=== PATIENT | male | born 1945 | race Caucasian/White ===

== ENCOUNTER 2019-08-18 14:55 | Outpatient (RCR) | payer MEDICARE, OTHER, SELFPAY | END 2019-08-31 00:01 | LOC: LAB 14:55 | PROVIDERS: Family Provider Family Medicine; Visit Provider Nurse Practitioner | DX: C90.02 Multiple myeloma in relapse (principal); E11.9 Type 2 diabetes mellitus without complications; E78.5 Hyperlipidemia, unspecified; D63.1 Anemia in chronic kidney disease; D47.2 Monoclonal gammopathy; Z79.899 Other long term (current) drug therapy | CPT/HCPCS: 36415; 80053 ×3; 82728 ×3; 82784 ×9; 83540 ×3; 83550 ×3; 83883 ×6; 84155 ×3; 84165 ×3; 85025 ×3 ==

== ENCOUNTER 2019-09-14 09:25 | Outpatient (RCR) | payer MEDICARE, OTHER, SELFPAY ==
[2019-09-02 15:25] LABS: Basophils % 0.9 %; Eosinophils # 0.1 10^3/uL (0.0-0.8); Eosinophils % 1.5 %; Hematocrit 32.3 % (42.0-52.0); Hemoglobin 10.8 g/dL (11.7-16.6); Lymphocytes # 1.1 10^3/uL (0.8-4.8); Lymphocytes % 33.1 %; Mean Corpuscular HGB Conc 33.4 g/dL (30.0-36.0); Mean Corpuscular Hemoglobin 36.9 pg (28.0-34.0); Mean Corpuscular Volume 110.2 fL (80-94); Mean Platelet Volume 11.1 fL (7.4-10.4); Monocytes # 0.3 10^3/uL (0.2-0.9); Monocytes % 8.2 %; Neutrophils # 1.9 10^3/uL (1.8-7.7); Neutrophils % 56.3 %; Nucleated Red Blood Cells % 0 %; Platelet Count 91 10^3/cmm (130-400); Red Blood Count 2.93 10^6/uL (4.1-5.3); Red Cell Distribution Width 14.3 % (12.1-15.1); White Blood Count 3.3 10^3/uL (4.0-10.0)
[2019-09-02 22:52] LABS: Alanine Aminotransferase 30 U/L (0-41); Alkaline Phosphatase 93 IU/L (40-130); Anion Gap 20.1 (5-19); Aspartate Amino Transferase 20 U/L (0-40); Blood Urea Nitrogen 29 mg/dL (8-23); Calcium 9.2 mg/Dl (8.8-10.2); Carbon Dioxide 28 mmol/L (22-29); Chloride 98 mmol/L (98-107); Globulin 2.2 g/dL (1.3-4.6); Glucose 70 mg/dL (74-106); Immunoglobulin IGA 529 mg/dL (70-400); Immunoglobulin IGG 348 mg/dL (700-1600); Immunoglobulin IGM 28 mg/dL (40-230); Potassium 4.1 mmol/L (3.5-5.1); Sodium 142 mmol/L (136-145); Total Bilirubin 0.5 mg/dL (0.15-1.2); Total Protein 7.2 g/dL (6.6-8.7)
[2019-09-14 13:15] LABS: Immunofixation, Serum NR
[2019-09-14 13:25] LABS: Basophils % 0.9 %; Eosinophils # 0.1 10^3/uL (0.0-0.8); Eosinophils % 1.7 %; Hematocrit 28.8 % (42.0-52.0); Hemoglobin 9.5 g/dL (11.7-16.6); Lymphocytes # 1.4 10^3/uL (0.8-4.8); Mean Corpuscular Hemoglobin 35.2 pg (28.0-34.0); Mean Corpuscular Volume 106.7 fL (80-94); Mean Platelet Volume 10.9 fL (7.4-10.4); Monocytes # 0.3 10^3/uL (0.2-0.9); Monocytes % 9.8 %; Neutrophils # 1.7 10^3/uL (1.8-7.7); Neutrophils % 48.3 %; Nucleated Red Blood Cells % 0 %; Platelet Count 82 10^3/cmm (130-400); Red Cell Distribution Width 14.2 % (12.1-15.1); White Blood Count 3.5 10^3/uL (4.0-10.0)
[2019-09-14 13:33] LABS: Alanine Aminotransferase 23 U/L (0-41); Albumin Level 4.5 g/dL (3.5-5.2); Alkaline Phosphatase 90 IU/L (40-130); Anion Gap 20.1 (5-19); Aspartate Amino Transferase 18 U/L (0-40); Blood Urea Nitrogen 54 mg/dL (8-23); Calcium 9.5 mg/Dl (8.8-10.2); Carbon Dioxide 28 mmol/L (22-29); Chloride 98 mmol/L (98-107); Globulin 1.5 g/dL (1.3-4.6); Glucose 76 mg/dL (74-106); Potassium 5.1 mmol/L (3.5-5.1); Sodium 141 mmol/L (136-145); Total Bilirubin 0.3 mg/dL (0.15-1.2)
[2019-09-14 14:10] LABS: Immunoglobulin IGA 504 mg/dL (70-400); Immunoglobulin IGG 308 mg/dL (700-1600); Immunoglobulin IGM 26 mg/dL (40-230)
[2019-09-16 14:16] LABS: ABNORMAL PROTEIN BAND 1 0.4 g/dL (NONE DETECTED); ALBUMIN 3.9 g/dL (3.8-4.8); ALPHA 1 GLOBULIN 0.2 g/dL (0.2-0.3); ALPHA 2 GLOBULIN 0.6 g/dL (0.5-0.9); BETA 1 GLOBULIN 0.2 g/dL (0.4-0.6); BETA 2 GLOBULIN 0.2 g/dL (0.2-0.5); GAMMA GLOBULIN 0.7 g/dL (0.8-1.7); KAPPA LIGHT CHAIN, FREE, SERUM 44.4 mg/L (3.3-19.4); KAPPA/LAMBDA LIGHT CHAINS FREE 4.58 (0.26-1.65); LAMBDA LIGHT CHAIN, FREE, SERU 9.7 mg/L (5.7-26.3); PROTEIN, TOTAL 5.8 g/dL (6.1-8.1)
== END 2019-10-01 23:59 | disposition home or self-care (01) ==
LOC: LAB 09:25
PROVIDERS: Family Provider Family Medicine; Visit Provider Nurse Practitioner
DX: C90.02 Multiple myeloma in relapse (principal); Z73.1 Type A behavior pattern; D47.2 Monoclonal gammopathy
CPT/HCPCS: 80053; 82784; 83883; 84155; 84165; 85025

== ENCOUNTER 2019-09-16 09:14 | Outpatient (CLI) | payer MEDICARE, OTHER, SELFPAY ==
[2019-09-16] MEDS: acetaminophen 325 mg Tablet 650 MG PO (10:16)
[2019-09-16] MEDS: sodium chloride 0.9% 250 ML 999 ML IV (10:50)
[2019-09-16] MEDS: epoetin alfa 40,000 Unit/mL INJ (non-esrd, onc only) 40000 UNIT SUBCUT (12:33)
--- NOTE | 2019-09-16 19:55 | ONC FU_ITS ---
Dr. Pinto Patient Follow-Up Note Patient: Larry Stephens Unit #: [id number]: 1945 Dicatated By: Dustin Pinto M.D.Date of Visit:Sep 16, 2019 Onc Med Follow-up/Prog Note Chief Complaint: Multiple myeloma. History of Present Illness: This is a 74 year-old man with relapsed IgA kappa myeloma. He has associated end-stage renal disease and anemia. He had pre-existing hypertension, hyperlipidemia, and type II diabetes. He had developed stage III chronic kidney disease following a colonoscopy prep. He had been seeing Dr. Miguelangel Cha for his nephrology follow-up care, and he was then found to have evidence of IgA kappa monoclonal gammopathy in October 2010. He was initially seen here by Dr. Plasencia in September 2011. At that point his protein electrophoresis showed IgA kappa monoclonal protein quantitating at 1.3 g/dL with 0.2 g/dL of free kappa monoclonal protein. UPEP was reportedly unrevealing. Bone marrow aspiration/biopsy showed 12% plasma cells. 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 There was no evidence of lytic bone involvement. His baseline creatinine was 1.8 mg/dL. He was treated initially with 3 cycles of Velcade/dexamethasone between October and December 2011. He required a dose reduction in the Velcade due to neuropathy. His repeat bone marrow aspiration/biopsy at [facility] on 01/01/2012 showed increase in the plasma cells to 17%. He then continued treatment at [facility] with autologous peripheral stem cell transplant in January 2012, I assume with high-dose melphalan, though it is not stated in the available records. The procedure was complicated by sepsis and acute renal failure requiring hemodialysis. He had subsequent relapse of the myeloma. His further treatment included 10 cycles of carfilzomib and dexamethasone beginning in May 2015. It was changed to carfilzomib, Revlimid, and dexamethasone beginning in January 2016 due to disease progression. Following further disease progression, his treatment was transitioned to carfilzomib, pomalidomide, and dexamethasone. As of October 2016, due to progressive kidney disease concerning for progressive myeloma, his treatment was changed to daratumumab, Revlimid, and dexamethasone. The Revlimid and dexamethasone were subsequently omitted due to toxicities, and he has since then continued daratumumab as a single agent. It has been administered on a monthly schedule. During this time his kidney function had progressed to end-stage renal disease, and he is on home peritoneal dialysis. He had been receiving treatment at [facility]. He was seen here in October 2017 because he desired to continue his further treatment locally. His medical illnesses, in addition to myeloma and renal failure, include hypertension, hyperlipidemia, type II diabetes with peripheral neuropathy, and benign prostatic hypertrophy. He is a nonsmoker. INTERIM HISTORY: Following his initial visit he continued monthly daratumumab infusions with no apparent adverse effects and no obvious progression of the myeloma. His hemoglobin/hematocrit levels remained stable above transfusion thresholds. On 06/25/2018 he was seen in the emergency room with increasing weakness. On evaluation, he was found to have a low B12 level at 168 pg/mL, and his TSH level was found to be elevated at 13.500 mIU/mL. He started B12 injections, and he also started thyroid replacement. As of 07/22/2018 there was further decline in the hemoglobin to 8.6 g, and at that point he did start treatment with Procrit. He had a very good response with his hemoglobin increasing to 12.2 g after 2 weekly injections. As of October 2018 he had opted to be admitted to the senior living, and he then began hemodialysis. At that point his erythropoietin stimulating agent was changed to Mircera. He then became progressively more anemic. As of 12/02/2018 his hemoglobin had stabilized at 7.9 g. He then restarted Procrit on 12/17/2018. During this time, he also had continued his monthly daratumumab infusions. His anemia did improve after restarting the Procrit. During follow-up his clinical status had otherwise remained stable. His protein electrophoresis had continued to show a very small M protein spike. There has been no significant change in his serum free light chains. He is seen for a scheduled visit. He has been feeling good generally. He is getting around well at the senior living, and he remains active. ECOG score is 1. He has good appetite. He has no fever or night sweats. He has no shortness of breath, cough, or chest pain. He has no GI or complaints. He currently is not having any significant joint or bone pain. He does have some numbness/tingling in his feet. Medications: Acetaminophen 2 Tablet (of 325 mg) Oral four times a day PRN, Acyclovir 1 Tablet (of 400 mg) Oral daily, Albuterol Sulfate 1 vial(s) (of (2.5 mg/3ml) 0.083%) Nebulization solution Inhalation t.i.d., Albuterol Sulfate 1 Puff(s) (of 108 (90 base) mcg/act) Aerosol Powder, Breath Activated Inhalation daily, Allopurinol 1 Tablet (of 100 mg) Oral daily, ALPRAZolam 1 Tablet (of 0.25 mg) Oral at bedtime, Bisacodyl 1 Suppository (of 10 mg/30mL) Enema Rectal PRN, Bisacodyl EC 1 Tablet (of 5 mg) Tablet, enteric coated Oral daily PRN, Calcium Acetate 1 Capsule (of 667 mg) Oral t.i.d., Diltiazem HCl Coated Beads 1 (240 mg) Capsule SR 24 HR Oral daily, Flomax 1 Tablet (of 0.4 mg) Capsule Oral b.i.d., Furosemide 1 Tablet (of 80 mg) Oral daily, Gentamicin Sulfate 1 (0.1 %) Cream Topical at bedtime, Levothyroxine Sodium 1 Tablet (of 50 mcg) Oral daily, Loperamide HCl 1 - 2 Tablet (of 2 mg) Oral PRN, Lovastatin 1 (40 mg) Tablet Oral at bedtime, Melatonin 1 Tablet (of 3 mg) Oral at bedtime, Mucinex 1 Tablet (of 600 mg) Tablet SR 12 HR Oral b.i.d., NovoLOG FlexPen Subcutaneous t.i.d., Prochlorperazine Maleate 1 Tablet (of 10 mg) Oral q 6 hours PRN, Requip 1 Tablet (of 0.5 mg) Oral b.i.d., Vitamin D3 1 Capsule (of 1000 Units) Oral daily Allergies: Bactrim, Codeine Sulfate, Sulfa Antibiotics, TraMADol HCl, and Verapamil HCl. Review of Systems: Constitutional - He feels pretty good. He remains acitive at the senior living. Appetite is good and weight is stable. No fever, chills, hot flashes, or night sweats. ECOG score is 1, ENMT - No sinus congestion/drainage. No mouth sores. No sore throat or difficulty swallowing, Hematologic/Lymphatic - He bruises easily, Respiratory - No shortness of breath. No cough. No pleuritic pain or hemoptysis, Cardiovascular - No angina pain. No palpitations, Gastrointestinal - No nausea or vomiting. No heartburn or acid reflux. No diarrhea or constipation. No blood in the stool or black stools, Genitourinary (M) - No dysuria or hematuria. No urinary frequency. No urgency or incontinence, Musculoskeletal - No joint or bone pain, Integumentary - No skin complications, Neurologic - No headache or dizziness. He has numbness/tingling in his feet, Psychiatric - No anxiety or depression. No insomnia. Vital Signs: Performed on Sep 16, 2019 09:25 Height - 69.00 in Weight - 147.4 lbs (HIGH) BSA - 1.81 sq.m BMI - 21.77 Temperature - 97.1 F (LOW) Pulse - 63 /min Respiration - 20 /min BP - 127/59 mm(hg) O2 Sat - 100 % Pain - 0 Physical Examination: Constitutional - He looks pretty good generally, Eyes - Sclerae nonicteric. Conjunctivae clear, ENMT - There are no lesions noted in the oral cavity, Hematologic/Lymphatic - No cervical, clavicular, or axillary adenopathy, Respiratory - Lungs sound clear, Cardiovascular - Heart rhythm is regular. There is no murmur, gallop, or rub noted, Abdomen - Soft. Liver and spleen are not enlarged. There is no abdominal mass or ascites noted and there is no inguinal adenopathy, Extremities - No edema. There is chronic purpura on both arms, Neurologic - No focal neurologic deficits noted. Lab/Imaging: Test performed on Sep 14, 2019 09:25 Glucose 76 mg/dL BUN 54 mg/dL Creatinine 5.6 mg/dL Cr Clearance (Est) 10.64 mL/min Sodium 141 mmol/L Potassium 5.1 mmol/L Chloride 98 mmol/L CO2 28 mmol/L Calcium 9.5 mg/dL Protein, Total 6.0 g/dL Albumin 4.5 g/dL Bilirubin, Total 0.3 mg/dL Alkaline Phosphatase 90 IU/L AST (SGOT) 18 IU/L ALT (SGPT) 23 IU/L WBC 3.5 10^9/L RBC 2.70 10^12/L HGB 9.5 g/dL HCT 28.8 % MCV 106.7 fl MCH 35.2 pg MCHC 33.0 g/dL RDW 14.2 % Platelet Count 82 10^9/L MPV 10.9 fL Neutrophils (Gran) 1.7 10^9/L Lymphocytes 1.4 10^9/L Monocytes 0.3 10^9/L Eosinophils 0.1 10^9/L Basophils 0.0 10^9/L Manual Lymphocytes 39.0 % Manual Monocytes 9.8 % Manual Eosinophils 1.7 % Manual Basophils 0.9 % NRBCs 0.0 /100 WBC IGA 504 mg/dL IGG 308 mg/dL IGM 26 mg/dL Impression: 1. Patient with IgA kappa myeloma, initially diagnosed in September 2011. He has associated end-stage renal disease and anemia. 2. He had disease progression following initial treatment with 3 cycles of Velcade/dexamethasone completed in December 2011. 3. He underwent autologous peripheral stem cell transplant at [facility] in January 2012, complicated by sepsis and acute renal failure requiring hemodialysis. 4. Following disease recurrence he had further treatment with 10 cycles of carfilzomib and dexamethasone beginning in May 2015. 5. Following disease progression he had further treatment with carfilzomib, Revlimid, and dexamethasone beginning in January 2016, and subsequently with carfilzomib, pomalidomide, and dexamethasone. 6. He then had further decline in kidney function with progression to end-stage renal disease, concerning for progressive myeloma. He began treatment with daratumumab, Revlimid, and dexamethasone beginning in October 2016. His treatment was later transitioned to single agent daratumumab due to toxicities with Revlimid and dexamethasone. He is now receiving daratumumab infusions on a monthly schedule. 7. He has been on daily home peritoneal dialysis for the end-stage renal disease, but he is now going to be starting hemodialysis. 8. 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 In April 2018 he had started treatment with Procrit, and thus far he has had a good clinical response. 9. He has associated hypogammaglobulinemia, but he has not been symptomatic with it. His other medical illnesses include: 10. Hypertension. 11. Hyperlipidemia. 12. Type II diabetes with peripheral neuropathy. 13. Benign prostatic hypertrophy. In June 2018 he was found to have a low B12 level, and he did start B12 replacement. He also was found to have a mildly elevated TSH level, and he also started thyroid replacement. His repeat B12 level in August was actually high, and the B12 injections were subsequently stopped. As of October 2018 he opted to be admitted to the senior living, and he then started hemodialysis. At that point his erythropoietin stimulating agent was changed to Mircera. During subsequent follow-up there was further decline in his hemoglobin, eventually stabilizing at 7.9 g. As of November 2018 he restarted Procrit, and he had a very good clinical response. Since then he has continued monthly daratumumab infusions, and he has continued Procrit injections as needed with this target hemoglobin at 10 g. His protein electrophoresis studies have been showing a small M protein spike. It is uncertain what extent that may just be reflecting his daratumumab. There has been no significant change in his free light chain assays. His overall clinical status remained stable. Plan: He will be given daratumumab 1,200 mg by IV infusion. He will continue Procrit as needed with his target hemoglobin at 10 g. He will be scheduled for a follow-up visit in one month. Signed By: Dustin Pinto M.D. <<Signature on File>>
== END 2019-09-16 09:15 | disposition home or self-care (01) ==
LOC: ONCMED 09:14
PROVIDERS: Family Provider Family Medicine; PCP Family Medicine; Visit Provider Internal Medicine Medical Oncology
DX: Z51.12 Encounter for antineoplastic immunotherapy (principal); C90.02 Multiple myeloma in relapse; D80.1 Nonfamilial hypogammaglobulinemia; E11.22 Type 2 diabetes mellitus with diabetic chronic kidney disease; I12.0 Hypertensive chronic kidney disease with stage 5 chronic kidney disease or end stage renal disease; N18.6 End stage renal disease; D63.1 Anemia in chronic kidney disease; E78.5 Hyperlipidemia, unspecified; E11.42 Type 2 diabetes mellitus with diabetic polyneuropathy; N40.0 Benign prostatic hyperplasia without lower urinary tract symptoms; Z99.2 Dependence on renal dialysis; Z79.4 Long term (current) use of insulin; Z94.84 Stem cells transplant status
CPT/HCPCS: 96365; 96367; 96372; 96413; 96415; 99214; J0885; J1200; J2405; J7040; J7050; J9145; Q4081

== ENCOUNTER 2019-10-14 08:29 | Outpatient (CLI) | payer MEDICARE, OTHER, SELFPAY ==
[2019-10-14] MEDS: acetaminophen 325 mg Tablet 650 MG PO (09:48)
[2019-10-14] MEDS: epoetin alfa 40,000 Unit/mL INJ (non-esrd, onc only) 40000 UNIT SUBCUT (09:53)
[2019-10-14] MEDS: sodium chloride 0.9% 250 ML 999 ML IV (09:53)
--- NOTE | 2019-10-14 09:58 | ONC FU_ITS ---
[facility] Patient Note Patient: Larry Stephens Unit #: [id number]: 1945 Dictated By: Ann SheetsDate of Visit: Oct 14, 2019 Onc MED Follow-Up/Prog Note Chief Complaint: Multiple myeloma. History of Present Illness: Mr Stephens is a 74 year-old man with relapsed IgA kappa myeloma. He has associated end-stage renal disease and anemia. He had pre-existing hypertension, hyperlipidemia, and type II diabetes. He had developed stage III chronic kidney disease following a colonoscopy prep. He had been seeing Dr. Miguelangel Cha for his nephrology follow-up care, and he was then found to have evidence of IgA kappa monoclonal gammopathy in October 2010. He was initially seen here by Dr. Plasencia in September 2011. At that point his protein electrophoresis showed IgA kappa monoclonal protein quantitating at 1.3 g/dL with 0.2 g/dL of free kappa monoclonal protein. UPEP was reportedly unrevealing. Bone marrow aspiration/biopsy showed 12% plasma cells. 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 There was no evidence of lytic bone involvement. His baseline creatinine was 1.8 mg/dL. He was treated initially with 3 cycles of Velcade/dexamethasone between October and December 2011. He required a dose reduction in the Velcade due to neuropathy. His repeat bone marrow aspiration/biopsy at [facility] on 01/01/2012 showed increase in the plasma cells to 17%. He then continued treatment at [facility] with autologous peripheral stem cell transplant in January 2012, assumed to be with high-dose melphalan, though it is not stated in the available records. The procedure was complicated by sepsis and acute renal failure requiring hemodialysis. He had subsequent relapse of the myeloma. His further treatment included 10 cycles of carfilzomib and dexamethasone beginning in May 2015. It was changed to carfilzomib, Revlimid, and dexamethasone beginning in January 2016 due to disease progression. Following further disease progression, his treatment was transitioned to carfilzomib, pomalidomide, and dexamethasone. As of October 2016, due to progressive kidney disease concerning for progressive myeloma, his treatment was changed to daratumumab, Revlimid, and dexamethasone. The Revlimid and dexamethasone were subsequently omitted due to toxicities, and he has since then continued daratumumab as a single agent. It has been administered on a monthly schedule. During this time his kidney function had progressed to end-stage renal disease, and he is on home peritoneal dialysis. He had been receiving treatment at [facility]. He was seen here in October 2017 because he desired to continue his further treatment locally. His medical illnesses, in addition to myeloma and renal failure, include hypertension, hyperlipidemia, type II diabetes with peripheral neuropathy, and benign prostatic hypertrophy. He is a nonsmoker. INTERIM HISTORY: Following his initial visit he continued monthly daratumumab infusions with no apparent adverse effects and no obvious progression of the myeloma. His hemoglobin/hematocrit levels remained stable above transfusion thresholds. On 06/25/2018 he was seen in the emergency room with increasing weakness. On evaluation, he was found to have a low B12 level at 168 pg/mL, and his TSH level was found to be elevated at 13.500 mIU/mL. He started B12 injections, and he also started thyroid replacement. As of 07/22/2018 there was further decline in the hemoglobin to 8.6 g, and at that point he did start treatment with Procrit. He had a very good response with his hemoglobin increasing to 12.2 g after 2 weekly injections. As of October 2018 he had opted to be admitted to the correction, and he then began hemodialysis. At that point his erythropoietin stimulating agent was changed to Mircera. He then became progressively more anemic. As of 12/02/2018 his hemoglobin had stabilized at 7.9 g. He then restarted Procrit on 12/17/2018. During this time, he also had continued his monthly daratumumab infusions. His anemia did improve after restarting the Procrit. During follow-up his clinical status had otherwise remained stable. His protein electrophoresis had continued to show a very small M protein spike. There has been no significant change in his serum free light chains. Mr. Stephens is here today for follow-up. He states overall he is doing well. He continues to tolerate hemodialysis 3 times weekly extremely well. He denies any new concerns. He said no fever or chills. He states he has not had any flu symptoms or evidence of any kind of infections. He states he wears a mask while he is at dialysis to. He denies pain. He denies any nausea or vomiting. He states he is eating well. He is been very active. He continues to live in assisted living and tolerates this well. He states he is very active there and is still working on his house trying to prepare it to sell later this year. He is still driving and tolerating this well. He denies any bowel or bladder changes. His states his neuropathy is stable and certainly is no worse than his last few visits. He continues to tolerate the Procrit well. He states his energy is good for him. He has had slight bleeding from his dialysis fistula but states they are putting a blood clotting Band-Aid and pressure dressing on top and I hold it for 15 minutes and thus far had no further problems . His ECOG is 1. Past Medical History: Benign prostatic hypertrophy End stage renal disease on home peritoneal dialysis Hyperlipidemia Hypertension Multiple myeloma Type II diabetes with peripheral neuropathy Past Surgical History: Placement of peritoneal diaysis catheter Placement of portacath venous access device Fistula in left arm in 2019 Prevnar 13 in 2018 Cataract excision in 2016 Right inguinal hernia repair in 2007 Cholecystectomy in 1983 Allergies: Bactrim, Codeine Sulfate, Sulfa Antibiotics, TraMADol HCl, and Verapamil HCl. Medications: Acetaminophen 2 Tablet (of 325 mg) Oral four times a day PRN Acyclovir 1 Tablet (of 400 mg) Oral daily Albuterol Sulfate 1 vial(s) (of (2.5 mg/3ml) 0.083%) Nebulization solution Inhalation t.i.d. Albuterol Sulfate 1 Puff(s) (of 108 (90 base) mcg/act) Aerosol Powder, Breath Activated Inhalation daily Allopurinol 1 Tablet (of 100 mg) Oral daily ALPRAZolam 1 Tablet (of 0.25 mg) Oral at bedtime Bisacodyl 1 Suppository (of 10 mg/30mL) Enema Rectal PRN Bisacodyl EC 1 Tablet (of 5 mg) Tablet, enteric coated Oral daily PRN Calcium Acetate 1 Capsule (of 667 mg) Oral t.i.d. Diltiazem HCl Coated Beads 1 (240 mg) Capsule SR 24 HR Oral daily Flomax 1 Tablet (of 0.4 mg) Capsule Oral b.i.d. Furosemide 1 Tablet (of 80 mg) Oral daily Gentamicin Sulfate 1 (0.1 %) Cream Topical at bedtime Levothyroxine Sodium 1 Tablet (of 50 mcg) Oral daily Loperamide HCl 1 - 2 Tablet (of 2 mg) Oral PRN Lovastatin 1 (40 mg) Tablet Oral at bedtime Melatonin 1 Tablet (of 3 mg) Oral at bedtime Mucinex 1 Tablet (of 600 mg) Tablet SR 12 HR Oral b.i.d. NovoLOG FlexPen Subcutaneous t.i.d. Prochlorperazine Maleate 1 Tablet (of 10 mg) Oral q 6 hours PRN Requip 1 Tablet (of 0.5 mg) Oral b.i.d. Vitamin D3 1 Capsule (of 1000 Units) Oral daily Family History: Mr. Augusts mother at age 82: Breast Cancer at age 70. Mr. Stephens's father at age 40. Mr. Stephens's maternal grandmother at age 80: cancer history consists of Breast cancer at age 80 (cause of ). Father at age 40, cause unknown to the patient. Mother of breast cancer at age 82. His maternal grandmother also had breast cancer. Social History: Mr. Stephens is and he is retired. Mr. Stephens has never smoked. He has no history of drinking. He is a nonsmoker. He does not drink alcohol. Review Of Symptoms: Constitutional Denies fevers, chills, night sweats, excessive fatigue or weight loss. Allergic/Immunologic No reactions. Eyes Denies significant visual changes. No diplopia. No amaurosis. ENMT Denies changes in hearing, sore throat, mouth sores, difficulty or changes in swallowing ability, and/or sinus drainage. Endocrine No diabetes, thyroid disease or hormone replacement. Denies hot flashes or night sweats. Hematologic/Lymphatic Denies easy bruising or bleeding. The patient denies any tender or palpable lymph nodes. Respiratory Denies dyspnea on exertion, chest pain, cough or hemoptysis. Denies orthopnea. Cardiovascular Denies anginal chest pain, palpitations or orthopnea. Gastrointestinal Denies nausea, vomiting, GI bleeding, or constipation. Denies change in bowel habits and/or stool color, no heartburn or early satiety. Genitourinary (M) Denies hematuria, dysuria, increased frequency, urgency, hesitancy or incontinence. Musculoskeletal Denies joint pain, swelling or redness. No decreased range of motion. Integumentary Denies chronic rashes, inflammation, ulcerations or skin changes. Neurologic Denies headache, blurred vision, and no areas of focal weakness or numbness. Normal gait. No sensory problems. Psychiatric Denies insomnia, depression, brielle or mood swings. Vital Signs: Performed on Oct 14, 2019 08:56 Height - 69.00 in Weight - 148.2 lbs (HIGH) BSA - 1.82 sq.m BMI - 21.89 Temperature - 97.5 F (LOW) Pulse - 66 /min Respiration - 14 /min BP - 129/59 mm(hg) O2 Sat - 99 % Pain - 0 Fatigue - 2,1 - No physically strenuous activity, but ambulatory and able to carry out light or sedentary work (e.g. office work, light house work). (ECOG) Physical Examination: Constitutional Alert, oriented, no acute distress. Skin pink, warm and dry. Head Normocephalic; atraumatic. Eyes Conjunctivae and sclerae are clear and without icterus. Pupils are reactive and equal. ENMT No oral exudates, ulcers, masses, thrush or mucositis. Oropharynx clear. Tongue normal. Neck Supple without masses or thyromegaly. No jugular venous distension. Hematologic/Lymphatic No petechiae or purpura. No tender or palpable lymph nodes in the cervical or supraclavicular areas. Respiratory Lungs are clear to auscultation without rhonchi or wheezing. Cardiovascular Regular rate and rhythm of heart without murmurs,clicks, gallops or rubs. Abdomen Non-tender, non-distended, no masses, Back/Spine Non-tender to palpation. Extremities No visible deformities, no cyanosis, clubbing or edema. Left arm fistula is unremarkable-no active bleeding and no significant bruising. Musculoskeletal No tenderness or swelling, normal range of motion without obvious weakness. Integumentary No rashes or lesions. Neurologic No sensory or motor deficits, normal cerebellar function, normal gait. Psychiatric Alert and oriented times three. Coherent speech. Verbalizes understanding of our discussions today. Laboratory:Test performed on Oct 07, 2019 08:10 Glucose 84 mg/dL Protein, Total 6.0 g/dL Albumin, SPE 4.0 g/dL BUN 47 mg/dL Creatinine 5.1 mg/dL Cr Clearance (Est) 11.68 mL/min Sodium 139 mmol/L Potassium 4.8 mmol/L Chloride 98 mmol/L CO2 28 mmol/L Calcium 9.4 mg/dL Albumin 4.2 g/dL Globulin 2.2 g/dL Bilirubin, Total 0.4 mg/dL Alkaline Phosphatase 86 IU/L AST (SGOT) 17 IU/L ALT (SGPT) 23 IU/L WBC 4.4 10^9/L RBC 2.69 10^12/L HGB 9.5 g/dL HCT 28.3 % MCV 105.2 fl MCH 35.3 pg MCHC 33.6 g/dL RDW 14.5 % Platelet Count 86 10^9/L MPV 11.0 fL Neutrophils (Gran) 2.8 10^9/L Lymphocytes 1.1 10^9/L Monocytes 0.4 10^9/L Eosinophils 0.1 10^9/L Basophils 0.0 10^9/L Manual Lymphocytes 25.5 % Manual Monocytes 8.3 % Manual Eosinophils 1.6 % Manual Basophils 0.5 % [place] / Lambda Ratio 5.33 Absolute Value Lambda Light Chain 8.0 [place] Light Chain 42.6 [id number] 0.3 g/dL Qainy-0-oeklvaem 0.6 g/dL Gamma Globulin 0.8 g/dL SPE Interpretation Final restricted band (M-spike) migrating in the gamma region Test performed on Sep 14, 2019 09:25 NRBCs 0.0 /100 WBC IGA 504 mg/dL IGG 308 mg/dL IGM 26 mg/dL Test performed on Aug 04, 2019 12:40 Ferritin 941.0 ng/ml Iron 133 ug/dL % Iron Saturation 83.6 % UIBC 26 ug/dL Anion Gap 15.7 Neutrophil % 51.6 % Lymphocyte % 35.2 % Monocyte % 10.0 % Eosinophil % 1.8 % Basophils % 0.9 % Test performed on Jul 08, 2019 10:09 BUN/Creatinine Ratio 11.1 Absolute Value A/G Ratio 2.4 Absolute Value Manual Segs 56.4 % Test performed on Jul 07, 2019 10:17 TIBC 194 mcg/dL Test performed on May 20, 2019 12:10 Folate, Serum 18.7 ng/mL Test performed on May 20, 2019 08:53 TSH 1.42 uIU/mL Test performed on May 05, 2019 00:00 Magnesium 2.1 mg/dL Hemoglobin A1C 4.4 % Impression: 1. Patient with IgA kappa myeloma, initially diagnosed in September 2011. He has associated end-stage renal disease and anemia. 2. He had disease progression following initial treatment with 3 cycles of Velcade/dexamethasone completed in December 2011. 3. He underwent autologous peripheral stem cell transplant at [facility] in January 2012, complicated by sepsis and acute renal failure requiring hemodialysis. 4. Following disease recurrence he had further treatment with 10 cycles of carfilzomib and dexamethasone beginning in May 2015. 5. Following disease progression he had further treatment with carfilzomib, Revlimid, and dexamethasone beginning in January 2016, and subsequently with carfilzomib, pomalidomide, and dexamethasone. 6. He then had further decline in kidney function with progression to end-stage renal disease, concerning for progressive myeloma. He began treatment with daratumumab, Revlimid, and dexamethasone beginning in October 2016. His treatment was later transitioned to single agent daratumumab due to toxicities with Revlimid and dexamethasone. He is now receiving daratumumab infusions on a monthly schedule. 7. He has been on daily home peritoneal dialysis for the end-stage renal disease, but he is now going to be starting hemodialysis. 8. 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 In April 2018 he had started treatment with Procrit, and thus far he has had a good clinical response. 9. He has associated hypogammaglobulinemia, but he has not been symptomatic with it. His other medical illnesses include: 10. Hypertension. 11. Hyperlipidemia. 12. Type II diabetes with peripheral neuropathy. 13. Benign prostatic hypertrophy. In June 2018 he was found to have a low B12 level, and he did start B12 replacement. He also was found to have a mildly elevated TSH level, and he also started thyroid replacement. His repeat B12 level in August was actually high, and the B12 injections were subsequently stopped. As of October 2018 he opted to be admitted to the correction, and he then started hemodialysis. At that point his erythropoietin stimulating agent was changed to Mircera. During subsequent follow-up there was further decline in his hemoglobin, eventually stabilizing at 7.9 g. As of November 2018 he restarted Procrit, and he had a very good clinical response. Since then he has continued monthly daratumumab infusions, and he has continued Procrit injections as needed with this target hemoglobin at 10 g. His protein electrophoresis studies have been showing a small M protein spike. It is uncertain what extent that may just be reflecting his daratumumab. There has been no significant change in his free light chain assays. His overall clinical status remained stable. Plan: 1. Proceed with cycle 36 daratuzumab. 2. Continue Procrit 40,000 units today as his Hgb is 9.5. 3. Continue in-home labs at [facility]. Recheck CBC in 2 weeks (anemia assessment-for possible Procrit). 4. Labs from 10/07/2019 were reviewed in detail and discussed with Mr. Stephens and a copy was given to him. His hemoglobin was 9.5. His platelet count was 86,000 and WBCs were 4.4 and ANC was 2800. His LFTs were normal. His Quantative [place] Free Light Chain was 42.3 on 10/07/2019 co mpared to 37.3 on 08/12/19 and 64.7 on 07/08/2019. The M-spike on was 0.4 compared to 08/12/19 was 0.4 and 0.2 on 07/08/2019. 5. Plan for followup in 4 weeks as scheduled followup labs to include CBC, CMP and multiple myeloma labs. He will be due for cycle 37 Darzalex at that time. 6. Mr. Stephens was instructed to contact us in the interim should questions or problems arise. If he shows disease progression or intolerance to the daratuzumab, the next possible option for treatment may be selinexor. Signed By: Ann Sheets-, AOCNP Dustin Pinto MD <<Signature on File>>
== END 2019-10-14 08:30 | disposition home or self-care (01) ==
LOC: ONCMED 08:36
PROVIDERS: Family Provider Family Medicine; PCP Family Medicine; Visit Provider Nurse Practitioner
DX: Z51.12 Encounter for antineoplastic immunotherapy (principal); C90.02 Multiple myeloma in relapse; E11.22 Type 2 diabetes mellitus with diabetic chronic kidney disease; I12.9 Hypertensive chronic kidney disease with stage 1 through stage 4 chronic kidney disease, or unspecified chronic kidney disease; N18.3 Chronic kidney disease, stage 3 (moderate); D63.1 Anemia in chronic kidney disease; E78.5 Hyperlipidemia, unspecified; E11.42 Type 2 diabetes mellitus with diabetic polyneuropathy; N40.0 Benign prostatic hyperplasia without lower urinary tract symptoms; Z99.2 Dependence on renal dialysis; Z94.84 Stem cells transplant status; Z79.4 Long term (current) use of insulin
CPT/HCPCS: 96367; 96372; 96413; 96415; 99214; J0885; J1200; J2405; J7040; J7050; J9145; Q4081

== ENCOUNTER 2019-10-28 08:20 | Outpatient (RCR) | payer MEDICARE, OTHER, SELFPAY ==
[2019-10-07 10:49] LABS: Basophils % 0.5 %; Eosinophils # 0.1 10^3/uL (0.0-0.8); Eosinophils % 1.6 %; Hematocrit 28.3 % (42.0-52.0); Hemoglobin 9.5 g/dL (11.7-16.6); Lymphocytes # 1.1 10^3/uL (0.8-4.8); Lymphocytes % 25.5 %; Mean Corpuscular HGB Conc 33.6 g/dL (30.0-36.0); Mean Corpuscular Hemoglobin 35.3 pg (28.0-34.0); Mean Corpuscular Volume 105.2 fL (80-94); Monocytes # 0.4 10^3/uL (0.2-0.9); Monocytes % 8.3 %; Neutrophils # 2.8 10^3/uL (1.8-7.7); Neutrophils % 63.9 %; Nucleated Red Blood Cells % 0 %; Platelet Count 86 10^3/cmm (130-400); Red Blood Count 2.69 10^6/uL (4.1-5.3); Red Cell Distribution Width 14.5 % (12.1-15.1); White Blood Count 4.4 10^3/uL (4.0-10.0)
[2019-10-07 11:02] LABS: Alanine Aminotransferase 23 U/L (0-41); Albumin Level 4.2 g/dL (3.5-5.2); Alkaline Phosphatase 86 IU/L (40-130); Anion Gap 17.8 (5-19); Aspartate Amino Transferase 17 U/L (0-40); Blood Urea Nitrogen 47 mg/dL (8-23); Calcium 9.4 mg/dL (8.5-10.5); Carbon Dioxide 28 mmol/L (22-29); Chloride 98 mmol/L (98-107); Globulin 2.2 g/dL (1.3-4.6); Glucose 84 mg/dL (65-115); Potassium 4.8 mmol/L (3.5-5.1); Sodium 139 mmol/L (136-145); Total Bilirubin 0.4 mg/dL (0.15-1.2); Total Protein 6.4 g/dL (6.6-8.7)
[2019-10-08 12:31] LABS: ABNORMAL PROTEIN BAND 1 0.4 g/dL (NONE DETECTED); ALPHA 1 GLOBULIN 0.3 g/dL (0.2-0.3); ALPHA 2 GLOBULIN 0.6 g/dL (0.5-0.9); BETA 1 GLOBULIN 0.3 g/dL (0.4-0.6); BETA 2 GLOBULIN 0.2 g/dL (0.2-0.5); GAMMA GLOBULIN 0.8 g/dL (0.8-1.7)
[2019-10-08 14:22] LABS: KAPPA LIGHT CHAIN, FREE, SERUM 42.6 mg/L (3.3-19.4); KAPPA/LAMBDA LIGHT CHAINS FREE 5.33 (0.26-1.65)
[2019-10-28 11:42] LABS: Basophils % 0.9 %; Eosinophils # 0.2 10^3/uL (0.0-0.8); Eosinophils % 3.5 %; Hematocrit 30.8 % (42.0-52.0); Hemoglobin 10.1 g/dL (11.7-16.6); Lymphocytes % 24.2 %; Mean Corpuscular HGB Conc 32.8 g/dL (30.0-36.0); Mean Corpuscular Hemoglobin 35.8 pg (28.0-34.0); Mean Corpuscular Volume 109.2 fL (80-94); Mean Platelet Volume 10.6 fL (7.4-10.4); Monocytes # 0.4 10^3/uL (0.2-0.9); Monocytes % 8.2 %; Neutrophils # 2.7 10^3/uL (1.8-7.7); Nucleated Red Blood Cells % 0 %; Platelet Count 109 10^3/cmm (130-400); Red Blood Count 2.82 10^6/uL (4.1-5.3); Red Cell Distribution Width 15.9 % (12.1-15.1); White Blood Count 4.3 10^3/uL (4.0-10.0)
[2019-10-28 13:07] LABS: Alanine Aminotransferase 16 U/L (0-41); Alkaline Phosphatase 87 IU/L (40-130); Aspartate Amino Transferase 15 U/L (0-40); Blood Urea Nitrogen 42 mg/dL (8-23); Calcium 9.5 mg/dL (8.5-10.5); Carbon Dioxide 30 mmol/L (22-29); Chloride 99 mmol/L (98-107); Globulin 2.9 g/dL (1.3-4.6); Glucose 88 mg/dL (65-115); Sodium 142 mmol/L (136-145); Total Bilirubin 0.6 mg/dL (0.15-1.2); Total Protein 6.9 g/dL (6.6-8.7); Vitamin B12 1513 pg/mL (232-1245)
[2019-10-28 13:35] LABS: Immunoglobulin IGA 769 mg/dL (70-400)
[2019-10-28 13:51] LABS: Immunoglobulin IGG < 300 mg/dL (700-1600); Immunoglobulin IGM < 25 mg/dL (40-230)
[2019-10-29 07:34] LABS: PROTEIN, TOTAL 6.3 g/dL (6.1-8.1)
[2019-10-29 12:02] LABS: ABNORMAL PROTEIN BAND 1 0.6 g/dL (NONE DETECTED); ALPHA 1 GLOBULIN 0.3 g/dL (0.2-0.3); ALPHA 2 GLOBULIN 0.6 g/dL (0.5-0.9); BETA 1 GLOBULIN 0.2 g/dL (0.4-0.6); BETA 2 GLOBULIN 0.2 g/dL (0.2-0.5)
[2019-10-29 16:56] LABS: KAPPA LIGHT CHAIN, FREE, SERUM 49.7 mg/L (3.3-19.4); KAPPA/LAMBDA LIGHT CHAINS FREE 5.85 (0.26-1.65); LAMBDA LIGHT CHAIN, FREE, SERU 8.5 mg/L (5.7-26.3)
== END 2019-10-30 23:59 | disposition home or self-care (01) ==
LOC: LAB 08:20
PROVIDERS: Internal Medicine Medical Oncology; Family Provider Family Medicine; PCP Family Medicine; Visit Provider Nurse Practitioner
DX: C90.02 Multiple myeloma in relapse (principal); D47.2 Monoclonal gammopathy; Z79.899 Other long term (current) drug therapy
CPT/HCPCS: 80053; 82607; 82784; 83883; 84155; 84165; 85025

== ENCOUNTER 2019-11-11 08:30 | Outpatient (CLI) | payer MEDICARE, OTHER, SELFPAY ==
[2019-11-04 11:43] LABS: Basophils % 0.8 %; Eosinophils # 0.2 10^3/uL (0.0-0.8); Eosinophils % 4.1 %; Hematocrit 28.8 % (42.0-52.0); Hemoglobin 9.4 g/dL (11.7-16.6); Mean Corpuscular HGB Conc 32.6 g/dL (30.0-36.0); Mean Corpuscular Hemoglobin 34.3 pg (28.0-34.0); Mean Corpuscular Volume 105.1 fL (80-94); Mean Platelet Volume 10.3 fL (7.4-10.4); Monocytes # 0.4 10^3/uL (0.2-0.9); Neutrophils # 2.3 10^3/uL (1.8-7.7); Neutrophils % 59.8 %; Nucleated Red Blood Cells % 0 %; Platelet Count 93 10^3/cmm (130-400); Red Blood Count 2.74 10^6/uL (4.1-5.3); Red Cell Distribution Width 15.5 % (12.1-15.1); White Blood Count 3.9 10^3/uL (4.0-10.0)
[2019-11-04 12:17] LABS: Alanine Aminotransferase 20 U/L (0-41); Albumin Level 3.9 g/dL (3.5-5.2); Alkaline Phosphatase 90 IU/L (40-130); Anion Gap 16.7 (5-19); Aspartate Amino Transferase 19 U/L (0-40); Blood Urea Nitrogen 42 mg/dL (8-23); Calcium 9.2 mg/dL (8.5-10.5); Carbon Dioxide 31 mmol/L (22-29); Chloride 98 mmol/L (98-107); Globulin 2.8 g/dL (1.3-4.6); Glucose 74 mg/dL (65-115); Potassium 4.7 mmol/L (3.5-5.1); Sodium 141 mmol/L (136-145); Total Bilirubin 0.4 mg/dL (0.15-1.2); Total Protein 6.7 g/dL (6.6-8.7)
[2019-11-04 12:33] LABS: Vitamin B12 1722 pg/mL (232-1245)
[2019-11-04 12:50] LABS: Immunoglobulin IGA 890 mg/dL (70-400)
[2019-11-04 12:51] LABS: Immunoglobulin IGG 264 mg/dL (700-1600); Immunoglobulin IGM 21 mg/dL (40-230)
[2019-11-05 11:32] LABS: ABNORMAL PROTEIN BAND 1 0.6 g/dL (NONE DETECTED); ALBUMIN 3.7 g/dL (3.8-4.8); ALPHA 1 GLOBULIN 0.3 g/dL (0.2-0.3); ALPHA 2 GLOBULIN 0.6 g/dL (0.5-0.9); BETA 1 GLOBULIN 0.2 g/dL (0.4-0.6); BETA 2 GLOBULIN 0.2 g/dL (0.2-0.5)
[2019-11-05 19:10] LABS: KAPPA LIGHT CHAIN, FREE, SERUM 52.1 mg/L (3.3-19.4); KAPPA/LAMBDA LIGHT CHAINS FREE 8.83 (0.26-1.65); LAMBDA LIGHT CHAIN, FREE, SERU 5.9 mg/L (5.7-26.3)
[2019-11-11] MEDS: acetaminophen 325 mg Tablet 650 MG PO (09:50)
[2019-11-11] MEDS: sodium chloride 0.9% 250 ML 999 ML IV (09:55)
[2019-11-11] MEDS: epoetin alfa 40,000 Unit/mL INJ (non-esrd, onc only) 40000 UNIT SUBCUT (12:22)
--- NOTE | 2019-11-14 13:10 | ONC FU_ITS ---
Dr. Pinto Patient Follow-Up Note Patient: Larry Stephens Unit #: [id number]: 1945 Dicatated By: Dustin Pinto M.D.Date of Visit:Nov 11, 2019 Onc Med Follow-up/Prog Note Chief Complaint: Multiple myeloma. History of Present Illness: This is a 74 year-old man with relapsed IgA kappa myeloma. He has associated end-stage renal disease and anemia. He had pre-existing hypertension, hyperlipidemia, and type II diabetes. He had developed stage III chronic kidney disease following a colonoscopy prep. He had been seeing Dr. Miguelangel Cha for his nephrology follow-up care, and he was then found to have evidence of IgA kappa monoclonal gammopathy in October 2010. He was initially seen here by Dr. Plasencia in September 2011. At that point his protein electrophoresis showed IgA kappa monoclonal protein quantitating at 1.3 g/dL with 0.2 g/dL of free kappa monoclonal protein. UPEP was reportedly unrevealing. Bone marrow aspiration/biopsy showed 12% plasma cells. 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 There was no evidence of lytic bone involvement. His baseline creatinine was 1.8 mg/dL. He was treated initially with 3 cycles of Velcade/dexamethasone between October and December 2011. He required a dose reduction in the Velcade due to neuropathy. His repeat bone marrow aspiration/biopsy at [facility] on 01/01/2012 showed increase in the plasma cells to 17%. He then continued treatment at [facility] with autologous peripheral stem cell transplant in January 2012, I assume with high-dose melphalan, though it is not stated in the available records. The procedure was complicated by sepsis and acute renal failure requiring hemodialysis. He had subsequent relapse of the myeloma. His further treatment included 10 cycles of carfilzomib and dexamethasone beginning in May 2015. It was changed to carfilzomib, Revlimid, and dexamethasone beginning in January 2016 due to disease progression. Following further disease progression, his treatment was transitioned to carfilzomib, pomalidomide, and dexamethasone. As of October 2016, due to progressive kidney disease concerning for progressive myeloma, his treatment was changed to daratumumab, Revlimid, and dexamethasone. The Revlimid and dexamethasone were subsequently omitted due to toxicities, and he has since then continued daratumumab as a single agent. It has been administered on a monthly schedule. During this time his kidney function had progressed to end-stage renal disease, and he is on home peritoneal dialysis. He had been receiving treatment at [facility]. He was seen here in October 2017 because he desired to continue his further treatment locally. His medical illnesses, in addition to myeloma and renal failure, include hypertension, hyperlipidemia, type II diabetes with peripheral neuropathy, and benign prostatic hypertrophy. He is a nonsmoker. INTERIM HISTORY: Following his initial visit he continued monthly daratumumab infusions with no apparent adverse effects and no obvious progression of the myeloma. His hemoglobin/hematocrit levels remained stable above transfusion thresholds. On 06/25/2018 he was seen in the emergency room with increasing weakness. On evaluation, he was found to have a low B12 level at 168 pg/mL, and his TSH level was found to be elevated at 13.500 mIU/mL. He started B12 injections, and he also started thyroid replacement. As of 07/22/2018 there was further decline in the hemoglobin to 8.6 g, and at that point he did start treatment with Procrit. He had a very good response with his hemoglobin increasing to 12.2 g after 2 weekly injections. As of October 2018 he had opted to be admitted to the [place] [facility], and he then began hemodialysis. At that point his erythropoietin stimulating agent was changed to Mircera. He then became progressively more anemic. As of 12/02/2018 his hemoglobin had stabilized at 7.9 g. He then restarted Procrit on 12/17/2018. During this time, he also had continued his monthly daratumumab infusions. His anemia did improve after restarting the Procrit. During follow-up his clinical status had otherwise remained stable. His protein electrophoresis had continued to show a very small M protein spike. There has been no significant change in his serum free light chains. His quantitative immunoglobulin levels have shown hypogammaglobulinemia with low IgG and IgM levels, but there has been no indication for replacement IVIG. He is seen for a scheduled visit. He has been feeling good generally. He has pretty good energy and activity tolerance, and he is up and around pretty well at the [place] [facility]. His ECOG score is 1. He has good appetite. He has no fever or night sweats. He has had no mouth sores. He has no shortness of breath, cough, or chest pain. He currently has no GI complaints. He has total producing a little bit of urine. Bladder function has been okay. He has no significant joint or bone pain. He does have some numbness/tingling in his feet. Medications: Acetaminophen 2 Tablet (of 325 mg) Oral four times a day PRN, Acyclovir 1 Tablet (of 400 mg) Oral daily, Albuterol Sulfate 1 vial(s) (of (2.5 mg/3ml) 0.083%) Nebulization solution Inhalation t.i.d., Albuterol Sulfate 1 Puff(s) (of 108 (90 base) mcg/act) Aerosol Powder, Breath Activated Inhalation daily, Allopurinol 1 Tablet (of 100 mg) Oral daily, ALPRAZolam 1 Tablet (of 0.25 mg) Oral at bedtime, Bisacodyl 1 Suppository (of 10 mg/30mL) Enema Rectal PRN, Bisacodyl EC 1 Tablet (of 5 mg) Tablet, enteric coated Oral daily PRN, Calcium Acetate 1 Capsule (of 667 mg) Oral t.i.d., Diltiazem HCl Coated Beads 1 (240 mg) Capsule SR 24 HR Oral daily, Furosemide 1 Tablet (of 80 mg) Oral daily, Gentamicin Sulfate 1 (0.1 %) Cream Topical at bedtime, Levothyroxine Sodium 1 Tablet (of 50 mcg) Oral daily, Loperamide HCl 1 - 2 Tablet (of 2 mg) Oral PRN, Lovastatin 1 (40 mg) Tablet Oral at bedtime, Mucinex 1 Tablet (of 600 mg) Tablet SR 12 HR Oral b.i.d., Requip 1 Tablet (of 0.5 mg) Oral b.i.d., Vitamin D3 1 Capsule (of 1000 Units) Oral daily Allergies: Bactrim, Codeine Sulfate, Sulfa Antibiotics, TraMADol HCl, and Verapamil HCl. Review of Systems: Constitutional - He has been feeling pretty good generally. He gets up and around pretty well at the [place] [facility]. Appetite is good and weight is stable. No fever, chills, hot flashes, or night sweats. ECOG score is 1, ENMT - No sinus congestion/drainage. No mouth sores. No sore throat or difficulty swallowing, Hematologic/Lymphatic - He bruises easily, Respiratory - No shortness of breath. No cough. No pleuritic pain or hemoptysis, Cardiovascular - No angina pain. No palpitations, Gastrointestinal - No nausea or vomiting. No heartburn or acid reflux. No diarrhea or constipation. No blood in the stool or black stools, Genitourinary (M) - He is still producing a little bit of urine. No dysuria or hematuria. No urinary frequency. No urgency or incontinence, Musculoskeletal - No joint or bone pain, Integumentary - No skin complications, Neurologic - No headache or dizziness. He has numbness/tingling in his feet, Psychiatric - No anxiety or depression. No insomnia. Vital Signs: Performed on Nov 11, 2019 08:54 Height - 69.00 in Weight - 152.2 lbs (HIGH) BSA - 1.84 sq.m BMI - 22.48 Temperature - 98.0 F (LOW) Pulse - 70 /min Respiration - 8 /min (LOW) BP - 127/60 mm(hg) O2 Sat - 100 % Pain - 0 Physical Examination: Constitutional - He looks pretty good generally, Eyes - Sclerae nonicteric. Conjunctivae clear, ENMT - There are no lesions noted in the oral cavity, Hematologic/Lymphatic - No cervical, clavicular, or axillary adenopathy, Respiratory - Lungs sound clear, Cardiovascular - Heart rhythm is regular. There is no murmur, gallop, or rub noted, Abdomen - Soft. Liver and spleen are not enlarged. There is no abdominal mass or ascites noted and there is no inguinal adenopathy, Extremities - No edema. He has chronic purpura, Neurologic - No focal neurologic deficits noted. Lab/Imaging: CBC shows hemoglobin 9.4 g, white blood cell count of 3900, and platelet count 93,000. Comprehensive metabolic profile shows elevated BUN and creatinine, as expected. Liver enzymes are normal. His protein electrophoresis studies show stable M protein at 0.6 g/dL. The free light chain assay shows slightly increased kappa/lambda ratio at 8.83. Impression: 1. Patient with IgA kappa myeloma, initially diagnosed in September 2011. He has associated end-stage renal disease and anemia. 2. He had disease progression following initial treatment with 3 cycles of Velcade/dexamethasone completed in December 2011. 3. He underwent autologous peripheral stem cell transplant at [facility] in January 2012, complicated by sepsis and acute renal failure requiring hemodialysis. 4. Following disease recurrence he had further treatment with 10 cycles of carfilzomib and dexamethasone beginning in May 2015. 5. Following disease progression he had further treatment with carfilzomib, Revlimid, and dexamethasone beginning in January 2016, and subsequently with carfilzomib, pomalidomide, and dexamethasone. 6. He then had further decline in kidney function with progression to end-stage renal disease, concerning for progressive myeloma. He began treatment with daratumumab, Revlimid, and dexamethasone beginning in October 2016. His treatment was later transitioned to single agent daratumumab due to toxicities with Revlimid and dexamethasone. He is now receiving daratumumab infusions on a monthly schedule. 7. He has been on daily home peritoneal dialysis for the end-stage renal disease, but he is now going to be starting hemodialysis. 8. 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 In April 2018 he had started treatment with Procrit, and thus far he has had a good clinical response. 9. He has associated hypogammaglobulinemia, but he has not been symptomatic with it. His other medical illnesses include: 10. Hypertension. 11. Hyperlipidemia. 12. Type II diabetes with peripheral neuropathy. 13. Benign prostatic hypertrophy. In June 2018 he was found to have a low B12 level, and he did start B12 replacement. He also was found to have a mildly elevated TSH level, and he also started thyroid replacement. His repeat B12 level in August was actually high, and the B12 injections were subsequently stopped. As of October 2018 he opted to be admitted to the [place] [facility], and he then started hemodialysis. At that point his erythropoietin stimulating agent was changed to Mircera. During subsequent follow-up there was further decline in his hemoglobin, eventually stabilizing at 7.9 g. As of November 2018 he restarted Procrit, and he had a very good clinical response. He has since then continued monthly daratumumab infusions, and he has continued Procrit injections as needed with this target hemoglobin at 10 g. His protein electrophoresis studies have been showing a small M protein spike, suggesting possible progression of the myeloma. There has been no significant change in his free light chain assays and his overall clinical status has remained stable. Plan: He will be given daratumumab 1,200 mg by IV infusion. He will continue Procrit as needed with his target hemoglobin at 10 g. He will be scheduled for a follow-up visit in one month. In the meantime, if he does have evidence of an infectious process, he would potentially be a candidate for replacement IVIG. Signed By: Dustin Pinto M.D. <<Signature on File>>
== END 2019-11-11 08:31 | disposition home or self-care (01) ==
PROVIDERS: Nurse Practitioner; Family Provider Family Medicine; PCP Family Medicine; Visit Provider Internal Medicine Medical Oncology
DX: Z51.12 Encounter for antineoplastic immunotherapy (principal); C90.02 Multiple myeloma in relapse; E11.22 Type 2 diabetes mellitus with diabetic chronic kidney disease; I12.0 Hypertensive chronic kidney disease with stage 5 chronic kidney disease or end stage renal disease; N18.6 End stage renal disease; D63.1 Anemia in chronic kidney disease; D80.1 Nonfamilial hypogammaglobulinemia; E78.5 Hyperlipidemia, unspecified; Z94.84 Stem cells transplant status; E11.42 Type 2 diabetes mellitus with diabetic polyneuropathy; N40.0 Benign prostatic hyperplasia without lower urinary tract symptoms; Z99.2 Dependence on renal dialysis; Z79.899 Other long term (current) drug therapy
CPT/HCPCS: 80053; 82607; 82784; 83883; 84155; 84165; 85025; 96367; 96372; 96413; 96415; 99214; J0885; J1200; J2405; J7040; J7050; J9145; Q4081

== ENCOUNTER 2019-12-02 08:10 | Outpatient (CLI) | payer MEDICARE, OTHER, SELFPAY ==
[2019-12-02 10:40] LABS: Basophils % 0.7 %; Eosinophils # 0.1 10^3/uL (0.0-0.8); Eosinophils % 2.6 %; Hematocrit 28.7 % (42.0-52.0); Hemoglobin 9.2 g/dL (11.7-16.6); Lymphocytes # 1.2 10^3/uL (0.8-4.8); Lymphocytes % 27.1 %; Mean Corpuscular HGB Conc 32.1 g/dL (30.0-36.0); Mean Corpuscular Hemoglobin 35.5 pg (28.0-34.0); Mean Corpuscular Volume 110.8 fL (80-94); Mean Platelet Volume 10.8 fL (7.4-10.4); Monocytes # 0.3 10^3/uL (0.2-0.9); Neutrophils # 2.6 10^3/uL (1.8-7.7); Neutrophils % 61.1 %; Nucleated Red Blood Cells % 0 %; Platelet Count 90 10^3/cmm (130-400); Red Blood Count 2.59 10^6/uL (4.1-5.3); Red Cell Distribution Width 16.1 % (12.1-15.1); White Blood Count 4.3 10^3/uL (4.0-10.0)
[2019-12-02 10:56] LABS: Alanine Aminotransferase 23 U/L (0-41); Albumin Level 4.2 g/dL (3.5-5.2); Alkaline Phosphatase 81 IU/L (40-130); Anion Gap 17.8 (5-19); Aspartate Amino Transferase 16 U/L (0-40); Blood Urea Nitrogen 42 mg/dL (8-23); Calcium 9.3 mg/dL (8.5-10.5); Carbon Dioxide 28 mmol/L (22-29); Chloride 98 mmol/L (98-107); Globulin 2.8 g/dL (1.3-4.6); Glucose 113 mg/dL (65-115); Lactate Dehydrogenase 166 U/L (135-225); Osmolality Calculated 289 mOsm/kg (285-295); Potassium 3.8 mmol/L (3.5-5.1); Sodium 140 mmol/L (136-145); Total Bilirubin 0.5 mg/dL (0.15-1.2)
[2019-12-03 07:15] LABS: PROTEIN, TOTAL 6.3 g/dL (6.1-8.1)
[2019-12-03 12:46] LABS: KAPPA LIGHT CHAIN, FREE, SERUM 62.2 mg/L (3.3-19.4); KAPPA/LAMBDA LIGHT CHAINS FREE 8.64 (0.26-1.65); LAMBDA LIGHT CHAIN, FREE, SERU 7.2 mg/L (5.7-26.3)
[2019-12-03 14:35] LABS: ABNORMAL PROTEIN BAND 1 0.7 g/dL (NONE DETECTED); ALBUMIN 3.9 g/dL (3.8-4.8); ALPHA 1 GLOBULIN 0.3 g/dL (0.2-0.3); ALPHA 2 GLOBULIN 0.6 g/dL (0.5-0.9); BETA 1 GLOBULIN 0.2 g/dL (0.4-0.6); BETA 2 GLOBULIN 0.2 g/dL (0.2-0.5); GAMMA GLOBULIN 1.1 g/dL (0.8-1.7)
== END 2019-12-02 08:11 | disposition home or self-care (01) ==
LOC: ONCMED 15:44
PROVIDERS: Family Provider Family Medicine; PCP Family Medicine; Visit Provider Internal Medicine Medical Oncology
DX: C90.00 Multiple myeloma not having achieved remission (principal)
CPT/HCPCS: 36415; 80053; 83615; 83883; 84155; 84165; 85025

== ENCOUNTER 2019-12-09 08:18 | Outpatient (CLI) | payer MEDICARE, OTHER, SELFPAY ==
[2019-12-09] MEDS: sodium chloride 0.9% 100 ML 300 ML (09:05)
[2019-12-09] MEDS: acetaminophen 325 mg Tablet 650 MG PO (09:05)
[2019-12-09] MEDS: sodium chloride 0.9% 250 ML 999 ML IV (09:40)
--- NOTE | 2019-12-09 10:00 | ONC FU_ITS ---
Dr. Pinto Patient Follow-Up Note Patient: Larry Stephens Unit #: [id number]: 1945 Dicatated By: Dustin Pinto M.D.Date of Visit:Dec 09, 2019 Onc Med Follow-up/Prog Note Chief Complaint: Multiple myeloma. History of Present Illness: This is a 74 year-old man with relapsed IgA kappa myeloma. He has associated end-stage renal disease and anemia. He had pre-existing hypertension, hyperlipidemia, and type II diabetes. He had developed stage III chronic kidney disease following a colonoscopy prep. He had been seeing Dr. Miguelangel Cha for his nephrology follow-up care, and he was then found to have evidence of IgA kappa monoclonal gammopathy in October 2010. He was initially seen here by Dr. Plasencia in September 2011. At that point his protein electrophoresis showed IgA kappa monoclonal protein quantitating at 1.3 g/dL with 0.2 g/dL of free kappa monoclonal protein. UPEP was reportedly unrevealing. Bone marrow aspiration/biopsy showed 12% plasma cells. 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 There was no evidence of lytic bone involvement. His baseline creatinine was 1.8 mg/dL. He was treated initially with 3 cycles of Velcade/dexamethasone between October and December 2011. He required a dose reduction in the Velcade due to neuropathy. His repeat bone marrow aspiration/biopsy at [facility] on 01/01/2012 showed increase in the plasma cells to 17%. He then continued treatment at [facility] with autologous peripheral stem cell transplant in January 2012, I assume with high-dose melphalan, though it is not stated in the available records. The procedure was complicated by sepsis and acute renal failure requiring hemodialysis. He had subsequent relapse of the myeloma. His further treatment included 10 cycles of carfilzomib and dexamethasone beginning in May 2015. It was changed to carfilzomib, Revlimid, and dexamethasone beginning in January 2016 due to disease progression. Following further disease progression, his treatment was transitioned to carfilzomib, pomalidomide, and dexamethasone. As of October 2016, due to progressive kidney disease concerning for progressive myeloma, his treatment was changed to daratumumab, Revlimid, and dexamethasone. The Revlimid and dexamethasone were subsequently omitted due to toxicities, and he has since then continued daratumumab as a single agent. It has been administered on a monthly schedule. During this time his kidney function had progressed to end-stage renal disease, and he is on home peritoneal dialysis. He had been receiving treatment at [facility]. He was seen here in October 2017 because he desired to continue his further treatment locally. Following his initial visit he continued monthly daratumumab infusions with no apparent adverse effects and no obvious progression of the myeloma. His hemoglobin/hematocrit levels remained stable above transfusion thresholds. On 06/25/2018 he was seen in the emergency room with increasing weakness. On evaluation, he was found to have a low B12 level at 168 pg/mL, and his TSH level was found to be elevated at 13.500 mIU/mL. He started B12 injections, and he also started thyroid replacement. As of 07/22/2018 there was further decline in the hemoglobin to 8.6 g, and at that point he did start treatment with Procrit. He had a very good response with his hemoglobin increasing to 12.2 g after 2 weekly injections. As of October 2018 he had opted to be admitted to the skilled nursing, and he then began hemodialysis. At that point his erythropoietin stimulating agent was changed to Mircera. He then became progressively more anemic. As of 12/02/2018 his hemoglobin had stabilized at 7.9 g. He then restarted Procrit on 12/17/2018. During this time, he also had continued his monthly daratumumab infusions. His anemia did improve after restarting the Procrit. During follow-up his clinical status had otherwise remained stable. His protein electrophoresis had continued to show a very small M protein spike. There had been no significant change in his serum free light chains. 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 His medical illnesses, in addition to myeloma and renal failure, include hypertension, hyperlipidemia, type II diabetes with peripheral neuropathy, and benign prostatic hypertrophy. He is a nonsmoker. INTERIM HISTORY: He has continued on his monthly daratumumab infusions. As of 11/11/2019 he received cycle 37 of daratumumab. He has been tolerating the treatment well and his clinical status has been stable, but over the past 3 months he has been showing a very gradual increase in his M protein, in the kappa free light chain, and in the kappa/lambda ratio. He is seen for a scheduled visit. He has been feeling good generally. He says he has good energy. He does have limited activity in the skilled nursing, but he says he does walk a lot. His ECOG score is 2. He has good appetite. He has no fever or night sweats. He has not had sore mouth or throat. He does not complain of cough, and he has not been having shortness of breath or chest pain. He indicates that his heart is sometimes irregular. He has no GI or complaints. He is still producing some urine. He has no significant joint or bone pain. He does not complain of headache or dizziness. He has no focal neurologic symptoms. Medications: Acetaminophen 2 Tablet (of 325 mg) Oral four times a day PRN, Acyclovir 1 Tablet (of 400 mg) Oral daily, Albuterol Sulfate 1 Vial(s) (of (2.5 mg/3ml) 0.083%) Nebulization solution Inhalation t.i.d. PRN, Albuterol Sulfate 1 Puff(s) (of 108 (90 base) mcg/act) Aerosol Powder, Breath Activated Inhalation daily, Albuterol Sulfate 1 Inhalation (of 108 (90 base) mcg/act) Aerosol Powder, Breath Activated Inhalation q 4 hours, Allopurinol 1 Tablet (of 100 mg) Oral daily, ALPRAZolam 1 Tablet (of 0.25 mg) Oral at bedtime, Bisacodyl 1 Suppository (of 10 mg/30mL) Enema Rectal PRN, Bisacodyl EC 1 Tablet (of 5 mg) Tablet, enteric coated Oral daily PRN, Calcium Acetate 1 Capsule (of 667 mg) Oral t.i.d., Diltiazem HCl Coated Beads 1 (240 mg) Capsule SR 24 HR Oral daily, Furosemide 1 Tablet (of 80 mg) Oral daily, Gentamicin Sulfate 1 (0.1 %) Cream Topical at bedtime, Levothyroxine Sodium 1 Tablet (of 50 mcg) Oral daily, Loperamide HCl 1 - 2 Tablet (of 2 mg) Oral PRN, Lovastatin 1 (40 mg) Tablet Oral at bedtime, Mucinex 1 Tablet (of 600 mg) Tablet SR 12 HR Oral b.i.d., Prochlorperazine Maleate 1 Tablet (of 10 mg) Oral q 6 hours PRN, Requip 1 Tablet (of 0.5 mg) Oral b.i.d., Tamsulosin HCl 1 Tablet (of 0.4 mg) Capsule Oral daily, Vitamin D3 1 Capsule (of 1000 Units) Oral daily Allergies: Bactrim, Codeine Sulfate, Sulfa Antibiotics, TraMADol HCl, and Verapamil HCl. Review of Systems: Constitutional - His energy level is good and he is feeling good. He does some walking. His appetite is good. His weight is down is 5 pounds. No fever, chills, hot flashes, or night sweats. ECOG score is 2, ENMT - No sinus congestion/drainage. No mouth sores. No sore throat or difficulty swallowing, Hematologic/Lymphatic - He bruises easily, Respiratory - No shortness of breath. No cough. No pleuritic pain or hemoptysis, Cardiovascular - No angina pain. No palpitations, Gastrointestinal - No nausea or vomiting. No heartburn or acid reflux. No diarrhea or constipation. No blood in the stool or black stools, Genitourinary (M) - No dysuria or hematuria. No urinary frequency. No urgency or incontinence, Musculoskeletal - No joint or bone pain, Integumentary - No skin complications, Neurologic - No headache or dizziness. No numbness/paresthesias or other focal neurologic symptoms, Psychiatric - No anxiety or depression. No insomnia. Vital Signs: Performed on Dec 09, 2019 08:23 Height - 69.00 in Weight - 147.0 lbs (LOW) BSA - 1.81 sq.m BMI - 21.71 Temperature - 98.0 F (LOW) Pulse - 66 /min Respiration - 18 /min BP - 142/78 mm(hg) (HIGH) O2 Sat - 99 % Pain - 0 Physical Examination: Constitutional - He looks pretty good generally, Eyes - Sclerae nonicteric. Conjunctivae clear, ENMT - There are no lesions noted in the oral cavity, Hematologic/Lymphatic - No cervical, clavicular, or axillary adenopathy, Respiratory - Lungs sound clear, Cardiovascular - Heart rhythm is regular with some premature beats. There is a I/ systolic murmur. There is no gallop or rub noted, Abdomen - Soft. Liver and spleen are not enlarged. There is no abdominal mass or ascites noted and there is no inguinal adenopathy, Extremities - No edema. He has chronic purpura, Neurologic - No focal neurologic deficits noted. Lab/Imaging: Test performed on Dec 02, 2019 08:10 LDH (Total) 166 U/L Sodium 140 mmol/L Potassium 3.8 mmol/L Chloride 98 mmol/L CO2 28 mmol/L Anion Gap 17.8 BUN 42 mg/dL Creatinine 5.2 mg/dL Cr Clearance (Est) 11.4500 mL/min Glucose 113 mg/dL Calcium 9.3 mg/dL Protein, Total 7.0 g/dL Albumin 4.2 g/dL Globulin 2.8 g/dL Bilirubin, Total 0.5 mg/dL ALT (SGPT) 23 U/L AST (SGOT) 16 U/L Alkaline Phosphatase 81 IU/L WBC 4.3 10 3/uL RBC 2.59 10 6/uL HGB 9.2 g/dL HCT 28.7 % MCV 110.8 fL MCH 35.5 pg MCHC 32.1 g/dL RDW 16.1 % Platelet Count 90 10 3/cmm MPV 10.8 fL Neutrophils 2.6 10 3/uL Lymphocytes 1.2 10 3/uL Monocytes 0.3 10 3/uL Eosinophils 0.1 10 3/uL Basophils 0.0 10 3/uL Neutrophil % 61.1 % Lymphocyte % 27.1 % Monocyte % 8.0 % Eosinophil % 2.6 % Basophils % 0.7 % Impression: 1. Patient with IgA kappa myeloma, initially diagnosed in September 2011. He has associated end-stage renal disease and anemia. 2. He had disease progression following initial treatment with 3 cycles of Velcade/dexamethasone completed in December 2011. 3. He underwent autologous peripheral stem cell transplant at [facility] in January 2012, complicated by sepsis and acute renal failure requiring hemodialysis. 4. Following disease recurrence he had further treatment with 10 cycles of carfilzomib and dexamethasone beginning in May 2015. 5. Following disease progression he had further treatment with carfilzomib, Revlimid, and dexamethasone beginning in January 2016, and subsequently with carfilzomib, pomalidomide, and dexamethasone. 6. He then had further decline in kidney function with progression to end-stage renal disease, concerning for progressive myeloma. He began treatment with daratumumab, Revlimid, and dexamethasone beginning in October 2016. His treatment was later transitioned to single agent daratumumab due to toxicities with Revlimid and dexamethasone. He is now receiving daratumumab infusions on a monthly schedule. 7. He has been on daily home peritoneal dialysis for the end-stage renal disease, but he is now going to be starting hemodialysis. 8. 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 In April 2018 he had started treatment with Procrit, and thus far he has had a good clinical response. 9. He has associated hypogammaglobulinemia, but he has not been symptomatic with it. His other medical illnesses include: 10. Hypertension. 11. Hyperlipidemia. 12. Type II diabetes with peripheral neuropathy. 13. Benign prostatic hypertrophy. In June 2018 he was found to have a low B12 level, and he did start B12 replacement. He also was found to have a mildly elevated TSH level, and he also started thyroid replacement. His repeat B12 level in August was actually high, and the B12 injections were subsequently stopped. As of October 2018 he opted to be admitted to the skilled nursing, and he then started hemodialysis. At that point his erythropoietin stimulating agent was changed to Mircera. During subsequent follow-up there was further decline in his hemoglobin, eventually stabilizing at 7.9 g. As of November 2018 he restarted Procrit, and he had a very good clinical response. He has since then continued monthly daratumumab infusions, and he has continued Procrit injections as needed with this target hemoglobin at 10 g. His protein electrophoresis studies had been showing a small M protein spike, and it does appear that his M protein has been rising gradually over the past 3 to 6 months. There also has been gradual increase in the kappa free light chain and in the kappa/lambda ratio. His clinical status, though, has remained stable. Plan: He will be given daratumumab 1,200 mg by IV infusion. He will continue Procrit as needed with his target hemoglobin at 10 g. He will be scheduled for a follow-up visit in one month. If his M protein continues to increase, will at some point need to adjust his treatment. I discussed options and at least initially he would prefer to try restarting carfilzomib and dexamethasone together with the daratumumab, but that will be subject to verification of insurance coverage. Signed By: Dustin Pinto M.D. <<Signature on File>>
[2019-12-09] MEDS: epoetin alfa 40,000 Unit/mL INJ (non-esrd, onc only) 40000 UNIT SUBCUT (11:45)
== END 2019-12-09 08:19 | disposition home or self-care (01) ==
LOC: ONCMED 08:18
PROVIDERS: Family Provider Family Medicine; PCP Family Medicine; Visit Provider Internal Medicine Medical Oncology
DX: Z51.12 Encounter for antineoplastic immunotherapy (principal); C90.00 Multiple myeloma not having achieved remission; N18.6 End stage renal disease; D63.1 Anemia in chronic kidney disease; E11.22 Type 2 diabetes mellitus with diabetic chronic kidney disease; I12.0 Hypertensive chronic kidney disease with stage 5 chronic kidney disease or end stage renal disease; E11.42 Type 2 diabetes mellitus with diabetic polyneuropathy; E78.5 Hyperlipidemia, unspecified; N40.0 Benign prostatic hyperplasia without lower urinary tract symptoms; E03.9 Hypothyroidism, unspecified; D80.1 Nonfamilial hypogammaglobulinemia; Z94.84 Stem cells transplant status; Z99.2 Dependence on renal dialysis; Z79.899 Other long term (current) drug therapy; Z79.51 Long term (current) use of inhaled steroids
CPT/HCPCS: 96367; 96372; 96413; 96415; 99214; J0885; J1200; J2405; J7040; J7050; J9145; Q4081

== ENCOUNTER 2019-12-30 07:25 | Outpatient (CLI) | payer MEDICARE, OTHER, SELFPAY ==
[2019-12-30 08:56] LABS: Basophils % 0.7 %; Eosinophils # 0.1 10^3/uL (0.0-0.8); Eosinophils % 1.5 %; Hematocrit 31.5 % (42.0-52.0); Lymphocytes # 1.6 10^3/uL (0.8-4.8); Lymphocytes % 34.9 %; Mean Corpuscular HGB Conc 31.7 g/dL (30.0-36.0); Mean Corpuscular Hemoglobin 35.2 pg (28.0-34.0); Mean Corpuscular Volume 110.9 fL (80-94); Mean Platelet Volume 10.4 fL (7.4-10.4); Monocytes # 0.3 10^3/uL (0.2-0.9); Neutrophils # 2.5 10^3/uL (1.8-7.7); Neutrophils % 55.7 %; Nucleated Red Blood Cells % 0 %; Platelet Count 106 10^3/cmm (130-400); Red Blood Count 2.84 10^6/uL (4.1-5.3); Red Cell Distribution Width 15.6 % (12.1-15.1); White Blood Count 4.6 10^3/uL (4.0-10.0)
[2019-12-30 09:12] LABS: Alanine Aminotransferase 21 U/L (0-41); Albumin Level 4.5 g/dL (3.5-5.2); Alkaline Phosphatase 92 IU/L (40-130); Anion Gap 19.5 (5-19); Aspartate Amino Transferase 20 U/L (0-40); Blood Urea Nitrogen 37 mg/dL (8-23); Calcium 9.5 mg/dL (8.5-10.5); Carbon Dioxide 29 mmol/L (22-29); Chloride 97 mmol/L (98-107); Globulin 3.2 g/dL (1.3-4.6); Glucose 99 mg/dL (65-115); Osmolality Calculated 292 mOsm/kg (285-295); Potassium 3.5 mmol/L (3.5-5.1); Sodium 142 mmol/L (136-145); Total Bilirubin 0.5 mg/dL (0.15-1.2); Total Protein 7.7 g/dL (6.6-8.7)
[2019-12-30 09:42] LABS: Immunoglobulin IGA 1333 mg/dL (70-400); Immunoglobulin IGG < 300 mg/dL (700-1600); Immunoglobulin IGM < 25 mg/dL (40-230)
[2019-12-30 10:31] LABS: Erythrocyte Sedimentation Rate 60 mm/hr (0-10)
[2019-12-31 14:31] LABS: KAPPA/LAMBDA LIGHT CHAINS FREE 9.36 (0.26-1.65); LAMBDA LIGHT CHAIN, FREE, SERU 7.8 mg/L (5.7-26.3)
[2019-12-31 15:26] LABS: ALBUMIN 4.2 g/dL (3.8-4.8); ALPHA 1 GLOBULIN 0.3 g/dL (0.2-0.3); ALPHA 2 GLOBULIN 0.6 g/dL (0.5-0.9); BETA 1 GLOBULIN 0.3 g/dL (0.4-0.6); BETA 2 GLOBULIN 0.2 g/dL (0.2-0.5); GAMMA GLOBULIN 1.4 g/dL (0.8-1.7)
== END 2019-12-30 07:26 | disposition home or self-care (01) ==
LOC: ONCMED 12-31 08:39
PROVIDERS: Family Provider Family Medicine; PCP Family Medicine; Visit Provider Internal Medicine Medical Oncology
DX: C90.02 Multiple myeloma in relapse (principal); D47.2 Monoclonal gammopathy
CPT/HCPCS: 80053; 82784; 83883; 84155; 84165; 85025; 85651

== ENCOUNTER 2020-01-06 07:49 | Outpatient (CLI) | payer MEDICARE, OTHER, SELFPAY ==
[2020-01-06] MEDS: sodium chloride 0.9% 250 ML 999 ML IV (09:00)
[2020-01-06] MEDS: acetaminophen 325 mg Tablet 650 MG PO (09:05)
[2020-01-06 09:17] LABS: Basophils % 0.7 %; Eosinophils # 0.1 10^3/uL (0.0-0.8); Eosinophils % 1.5 %; Hemoglobin 9.5 g/dL (11.7-16.6); Lymphocytes # 1.7 10^3/uL (0.8-4.8); Lymphocytes % 40.9 %; Mean Corpuscular HGB Conc 32.8 g/dL (30.0-36.0); Mean Corpuscular Hemoglobin 35.3 pg (28.0-34.0); Mean Corpuscular Volume 107.8 fL (80-94); Mean Platelet Volume 10.7 fL (7.4-10.4); Monocytes # 0.4 10^3/uL (0.2-0.9); Monocytes % 9.2 %; Neutrophils % 47.7 %; Nucleated Red Blood Cells % 0 %; Platelet Count 88 10^3/cmm (130-400); Red Blood Count 2.69 10^6/uL (4.1-5.3); Red Cell Distribution Width 14.7 % (12.1-15.1); White Blood Count 4.1 10^3/uL (4.0-10.0)
[2020-01-06] MEDS: epoetin alfa 40,000 Unit/mL INJ (non-esrd, onc only) 40000 UNIT SUBCUT (11:35)
--- NOTE | 2020-01-09 11:17 | ONC FU_ITS ---
Dr. Pinto Patient Follow-Up Note Patient: Larry Stephens Unit #: [id number]: 1945 Dicatated By: Dustin Pinto M.D.Date of Visit:January 06, 2020 Onc Med Follow-up/Prog Note Chief Complaint: Multiple myeloma. History of Present Illness: This is a 74 year-old man with relapsed IgA kappa myeloma. He has associated end-stage renal disease and anemia. He had pre-existing hypertension, hyperlipidemia, and type II diabetes. He had developed stage III chronic kidney disease following a colonoscopy prep. He had been seeing Dr. Miguelangel Cha for his nephrology follow-up care, and he was then found to have evidence of IgA kappa monoclonal gammopathy in October 2010. He was initially seen here by Dr. Plasencia in September 2011. At that point his protein electrophoresis showed IgA kappa monoclonal protein quantitating at 1.3 g/dL with 0.2 g/dL of free kappa monoclonal protein. UPEP was reportedly unrevealing. Bone marrow aspiration/biopsy showed 12% plasma cells. 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 There was no evidence of lytic bone involvement. His baseline creatinine was 1.8 mg/dL. He was treated initially with 3 cycles of Velcade/dexamethasone between October and December 2011. He required a dose reduction in the Velcade due to neuropathy. His repeat bone marrow aspiration/biopsy at [facility] on 01/01/2012 showed increase in the plasma cells to 17%. He then continued treatment at [facility] with autologous peripheral stem cell transplant in January 2012, I assume with high-dose melphalan, though it is not stated in the available records. The procedure was complicated by sepsis and acute renal failure requiring hemodialysis. He had subsequent relapse of the myeloma. His further treatment included 10 cycles of carfilzomib and dexamethasone beginning in May 2015. It was changed to carfilzomib, Revlimid, and dexamethasone beginning in January 2016 due to disease progression. Following further disease progression, his treatment was transitioned to carfilzomib, pomalidomide, and dexamethasone. As of October 2016, due to progressive kidney disease concerning for progressive myeloma, his treatment was changed to daratumumab, Revlimid, and dexamethasone. The Revlimid and dexamethasone were subsequently omitted due to toxicities, and he has since then continued daratumumab as a single agent. It has been administered on a monthly schedule. During this time his kidney function had progressed to end-stage renal disease, and he is on home peritoneal dialysis. He had been receiving treatment at [facility]. He was seen here in October 2017 because he desired to continue his further treatment locally. Following his initial visit he continued monthly daratumumab infusions with no apparent adverse effects and no obvious progression of the myeloma. His hemoglobin/hematocrit levels remained stable above transfusion thresholds. On 06/25/2018 he was seen in the emergency room with increasing weakness. On evaluation, he was found to have a low B12 level at 168 pg/mL, and his TSH level was found to be elevated at 13.500 mIU/mL. He started B12 injections, and he also started thyroid replacement. As of 07/22/2018 there was further decline in the hemoglobin to 8.6 g, and at that point he did start treatment with Procrit. He had a very good response with his hemoglobin increasing to 12.2 g after 2 weekly injections. As of October 2018 he had opted to be admitted to the senior living, and he then began hemodialysis. At that point his erythropoietin stimulating agent was changed to Mircera. He then became progressively more anemic. As of 12/02/2018 his hemoglobin had stabilized at 7.9 g. He then restarted Procrit on 12/17/2018. During this time, he also had continued his monthly daratumumab infusions. His anemia did improve after restarting the Procrit. During follow-up his clinical status had otherwise remained stable. His protein electrophoresis had continued to show a very small M protein spike. There had been no significant change in his serum free light chains. 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 His medical illnesses, in addition to myeloma and renal failure, include hypertension, hyperlipidemia, type II diabetes with peripheral neuropathy, and benign prostatic hypertrophy. He is a nonsmoker. INTERIM HISTORY: He has continued on his monthly daratumumab infusions. As of 12/09/2019 he received cycle 38 of daratumumab. He has been tolerating the treatment well and his clinical status has been stable. However, he has been showing a very gradual increase in his M protein, in the kappa free light chain, and in the kappa/lambda ratio. He is seen for a scheduled visit. He has been feeling good generally. His energy has been okay. He is doing a lot of walking. ECOG score is 2. He has good appetite. He has no fever or night sweats. He has had no mouth sores. He has no shortness of breath, cough, or chest pain. He has no GI complaints. He still has a little bit of urine output, and bladder function has been okay. He has no significant joint or bone pain. He does not complain of headache or dizziness. He has a little bit of numbness in his legs. Medications: Acetaminophen 2 Tablet (of 325 mg) Oral four times a day PRN, Acyclovir 1 Tablet (of 400 mg) Oral daily, Albuterol Sulfate 1 Vial(s) (of (2.5 mg/3ml) 0.083%) Nebulization solution Inhalation t.i.d. PRN, Albuterol Sulfate 1 Inhalation (of 108 (90 base) mcg/act) Aerosol Powder, Breath Activated Inhalation q 4 hours, Allopurinol 1 Tablet (of 100 mg) Oral daily, ALPRAZolam 1 Tablet (of 0.25 mg) Oral at bedtime, Bisacodyl 1 Suppository (of 10 mg/30mL) Enema Rectal PRN, Bisacodyl EC 2 Tablet (of 5 mg) Tablet, enteric coated Oral daily PRN, Calcium Acetate 1 Capsule (of 667 mg) Oral t.i.d., Diltiazem HCl Coated Beads 1 (240 mg) Capsule SR 24 HR Oral daily, Furosemide 1 Tablet (of 80 mg) Oral daily, Gentamicin Sulfate 1 (0.1 %) Cream Topical at bedtime, Levothyroxine Sodium 1 Tablet (of 50 mcg) Oral daily, Loperamide HCl 1 - 2 Tablet (of 2 mg) Oral PRN, Lovastatin 1 (40 mg) Tablet Oral at bedtime, Mucinex 1 Tablet (of 600 mg) Tablet SR 12 HR Oral b.i.d. PRN, Prochlorperazine Maleate 1 Tablet (of 10 mg) Oral q 6 hours PRN, Requip 1 Tablet (of 0.5 mg) Oral b.i.d., Tamsulosin HCl 1 Tablet (of 0.4 mg) Capsule Oral b.i.d., Vitamin B Complex 1 Tablet Oral daily Allergies: Bactrim, Codeine Sulfate, Sulfa Antibiotics, TraMADol HCl, and Verapamil HCl. Review of Systems: Constitutional - He is feeling good. His energy is good. He does some light walking. His appetite is good and weight is stable. No fever, chills, hot flashes, or night sweats. ECOG score is 2, ENMT - No sinus congestion/drainage. No mouth sores. No sore throat or difficulty swallowing, Hematologic/Lymphatic - He bruises easily, Respiratory - No shortness of breath. No cough. No pleuritic pain or hemoptysis, Cardiovascular - No angina pain. No palpitations, Gastrointestinal - No nausea or vomiting. No heartburn or acid reflux. No diarrhea or constipation. No blood in the stool or black stools, Genitourinary (M) - He still has a little urine output. He has no dysuria or hematuria and no urgency/incontinence, Musculoskeletal - No joint or bone pain, Integumentary - No skin complications, Neurologic - No headache or dizziness. He has a little bit of numbness in his legs, Psychiatric - No anxiety or depression. No insomnia. Vital Signs: Performed on January 06, 2020 08:04 Height - 69.00 in Weight - 147.0 lbs BSA - 1.81 sq.m BMI - 21.71 Temperature - 97.6 F (LOW) Pulse - 60 /min Respiration - 18 /min BP - 135/66 mm(hg) O2 Sat - 100 % Pain - 0 Physical Examination: Constitutional - He looks pretty good generally, Eyes - Sclerae nonicteric. Conjunctivae clear, ENMT - No lesions noted in the oral cavity, Hematologic/Lymphatic - No cervical, clavicular, or axillary adenopathy, Respiratory - Lungs are clear with good air movement bilaterally, Cardiovascular - Heart rhythm is regular with some premature beats. There is a I/ systolic murmur. There is no gallop or rub noted, Abdomen - Soft. Liver and spleen are not enlarged. There is no abdominal mass or ascites noted and there is no inguinal adenopathy, Extremities - No edema. He has extensive purpura, Neurologic - No focal neurologic deficits noted. Lab/Imaging: Test performed on January 06, 2020 08:45 WBC 4.1 10 3/uL RBC 2.69 10 6/uL HGB 9.5 g/dL HCT 29.0 % MCV 107.8 fL MCH 35.3 pg MCHC 32.8 g/dL RDW 14.7 % Platelet Count 88 10 3/cmm MPV 10.7 fL Neutrophils 2.0 10 3/uL Lymphocytes 1.7 10 3/uL Monocytes 0.4 10 3/uL Eosinophils 0.1 10 3/uL Basophils 0.0 10 3/uL Neutrophil % 47.7 % Lymphocyte % 40.9 % Monocyte % 9.2 % Eosinophil % 1.5 % Basophils % 0.7 % Test performed on Dec 30, 2019 07:25 Sodium 142 mmol/L Potassium 3.5 mmol/L Chloride 97 mmol/L CO2 29 mmol/L Anion Gap 19.5 BUN 37 mg/dL Creatinine 5.3 mg/dL Cr Clearance (Est) 11.2400 mL/min Glucose 99 mg/dL Calcium 9.5 mg/dL Protein, Total 7.7 g/dL Albumin 4.5 g/dL Globulin 3.2 g/dL Bilirubin, Total 0.5 mg/dL ALT (SGPT) 21 U/L AST (SGOT) 20 U/L Alkaline Phosphatase 92 IU/L ESR (Sed Rate) 60 mm/hr IgA 1333 mg/dL IgG < 300 mg/dL IgM < 25 mg/dL Test performed on Dec 02, 2019 08:10 LDH (Total) 166 U/L Test performed on Oct 07, 2019 08:10 Albumin, SPE 4.0 g/dL Manual Lymphocytes 25.5 % Manual Monocytes 8.3 % Manual Eosinophils 1.6 % Manual Basophils 0.5 % [place] / Lambda Ratio 5.33 Absolute Value Lambda Light Chain 8.0 [place] Light Chain 42.6 Gcflr-[id number] 0.3 g/dL Oftpu-2-[id number] 0.6 g/dL Gamma Globulin 0.8 g/dL SPE Interpretation Final restricted band (M-spike) migrating in the gamma region Impression: 1. Patient with IgA kappa myeloma, initially diagnosed in September 2011. He has associated end-stage renal disease and anemia. 2. He had disease progression following initial treatment with 3 cycles of Velcade/dexamethasone completed in December 2011. 3. He underwent autologous peripheral stem cell transplant at [facility] in January 2012, complicated by sepsis and acute renal failure requiring hemodialysis. 4. Following disease recurrence he had further treatment with 10 cycles of carfilzomib and dexamethasone beginning in May 2015. 5. Following disease progression he had further treatment with carfilzomib, Revlimid, and dexamethasone beginning in January 2016, and subsequently with carfilzomib, pomalidomide, and dexamethasone. 6. He then had further decline in kidney function with progression to end-stage renal disease, concerning for progressive myeloma. He began treatment with daratumumab, Revlimid, and dexamethasone beginning in October 2016. His treatment was later transitioned to single agent daratumumab due to toxicities with Revlimid and dexamethasone. He is now receiving daratumumab infusions on a monthly schedule. 7. He has been on daily home peritoneal dialysis for the end-stage renal disease, but he is now going to be starting hemodialysis. 8. 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 In April 2018 he had started treatment with Procrit, and thus far he has had a good clinical response. 9. He has associated hypogammaglobulinemia, but he has not been symptomatic with it. His other medical illnesses include: 10. Hypertension. 11. Hyperlipidemia. 12. Type II diabetes with peripheral neuropathy. 13. Benign prostatic hypertrophy. In June 2018 he was found to have a low B12 level, and he did start B12 replacement. He also was found to have a mildly elevated TSH level, and he also started thyroid replacement. His repeat B12 level in August was actually high, and the B12 injections were subsequently stopped. As of October 2018 he opted to be admitted to the senior living, and he then started hemodialysis. At that point his erythropoietin stimulating agent was changed to Mircera. During subsequent follow-up there was further decline in his hemoglobin, eventually stabilizing at 7.9 g. As of November 2018 he restarted Procrit, and he had a very good clinical response. He has continued monthly daratumumab infusions for the myeloma, and he has continued Procrit injections as needed with this target hemoglobin at 10 g. His protein electrophoresis studies had been showing a gradual increase in the M protein, now to 1.0 g/dL. There also has been gradual increase in the kappa free light chain and in the kappa/lambda ratio. He has not been symptomatic with it, and his clinical status has remained stable. Plan: He will be given daratumumab 1,200 mg by IV infusion. He will continue Procrit as needed with his target hemoglobin at 10 g. He will be scheduled for a follow-up visit in one month. I have previously discussed further treatment options with him. The tentative plan is to try restarting carfilzomib and dexamethasone along with the daratumumab, but that will be subject to verification of insurance coverage. Signed By: Dustin Pinto M.D. <<Signature on File>>
== END 2020-01-06 07:50 | disposition home or self-care (01) ==
LOC: ONCMED 07:50
PROVIDERS: PCP Family Medicine; Visit Provider Internal Medicine Medical Oncology
DX: Z51.12 Encounter for antineoplastic immunotherapy (principal); C90.02 Multiple myeloma in relapse; D80.1 Nonfamilial hypogammaglobulinemia; E11.22 Type 2 diabetes mellitus with diabetic chronic kidney disease; E11.42 Type 2 diabetes mellitus with diabetic polyneuropathy; I12.0 Hypertensive chronic kidney disease with stage 5 chronic kidney disease or end stage renal disease; N18.6 End stage renal disease; E78.5 Hyperlipidemia, unspecified; N40.0 Benign prostatic hyperplasia without lower urinary tract symptoms; D63.1 Anemia in chronic kidney disease; Z99.2 Dependence on renal dialysis; Z92.21 Personal history of antineoplastic chemotherapy; Z79.899 Other long term (current) drug therapy; Z79.818 Long term (current) use of other agents affecting estrogen receptors and estrogen levels
CPT/HCPCS: 36415; 85025; 96367; 96372; 96413; 96415; 99214; J0885; J1200; J2405; J7040; J7050; J9145; Q4081

== ENCOUNTER 2020-01-27 07:10 | Outpatient (CLI) | payer MEDICARE, OTHER, SELFPAY ==
[2020-01-27 13:14] LABS: Basophils % 0.7 %; Eosinophils # 0.1 10^3/uL (0.0-0.8); Eosinophils % 1.4 %; Hematocrit 30.1 % (42.0-52.0); Hemoglobin 9.3 g/dL (11.7-16.6); Lymphocytes # 1.7 10^3/uL (0.8-4.8); Lymphocytes % 39.3 %; Mean Corpuscular HGB Conc 30.9 g/dL (30.0-36.0); Mean Corpuscular Hemoglobin 34.7 pg (28.0-34.0); Mean Corpuscular Volume 112.3 fL (80-94); Mean Platelet Volume 10.9 fL (7.4-10.4); Monocytes # 0.4 10^3/uL (0.2-0.9); Monocytes % 9.6 %; Neutrophils # 2.1 10^3/uL (1.8-7.7); Nucleated Red Blood Cells % 0 %; Platelet Count 95 10^3/cmm (130-400); Red Blood Count 2.68 10^6/uL (4.1-5.3); Red Cell Distribution Width 15.3 % (12.1-15.1); White Blood Count 4.3 10^3/uL (4.0-10.0)
[2020-01-27 14:17] LABS: Alanine Aminotransferase 21 U/L (0-41); Albumin Level 4.3 g/dL (3.5-5.2); Alkaline Phosphatase 67 IU/L (40-130); Anion Gap 19.5 (5-19); Aspartate Amino Transferase 18 U/L (0-40); Blood Urea Nitrogen 33 mg/dL (8-23); Calcium 9.1 mg/dL (8.5-10.5); Carbon Dioxide 29 mmol/L (22-29); Chloride 99 mmol/L (98-107); Globulin 2.7 g/dL (1.3-4.6); Glucose 57 mg/dL (65-115); Osmolality Calculated 291 mOsm/kg (285-295); Potassium 4.5 mmol/L (3.5-5.1); Sodium 143 mmol/L (136-145); Total Bilirubin 0.5 mg/dL (0.15-1.2)
[2020-01-27 14:40] LABS: Immunoglobulin IGG < 300 mg/dL (700-1600)
[2020-01-28 11:55] LABS: KAPPA LIGHT CHAIN, FREE, SERUM 77.4 mg/L (3.3-19.4); KAPPA/LAMBDA LIGHT CHAINS FREE 13.12 (0.26-1.65); LAMBDA LIGHT CHAIN, FREE, SERU 5.9 mg/L (5.7-26.3)
[2020-01-28 15:42] LABS: ABNORMAL PROTEIN BAND 1 1.2 g/dL (NONE DETECTED); ALPHA 1 GLOBULIN 0.3 g/dL (0.2-0.3); ALPHA 2 GLOBULIN 0.7 g/dL (0.5-0.9); BETA 1 GLOBULIN 0.3 g/dL (0.4-0.6); BETA 2 GLOBULIN 0.2 g/dL (0.2-0.5); GAMMA GLOBULIN 1.6 g/dL (0.8-1.7)
== END 2020-01-27 07:11 | disposition home or self-care (01) ==
LOC: ONCMED 15:44
PROVIDERS: PCP Family Medicine; Visit Provider Internal Medicine Medical Oncology
DX: C90.02 Multiple myeloma in relapse (principal); D47.2 Monoclonal gammopathy
CPT/HCPCS: 36415; 80053; 82784; 83883; 84155; 84165; 85025

== ENCOUNTER 2020-02-03 08:07 | Outpatient (CLI) | payer MEDICARE, OTHER, SELFPAY ==
[2020-02-03] MEDS: acetaminophen 325 mg Tablet 650 MG PO (09:34)
[2020-02-03] MEDS: sodium chloride 0.9% 250 ML 999 ML IV (10:02)
[2020-02-03] MEDS: epoetin alfa 40,000 Unit/mL INJ (non-esrd, onc only) 40000 UNIT SUBCUT (11:55)
--- NOTE | 2020-02-03 16:29 | ONC FU_ITS ---
[facility] Patient Note Patient: Larry Stephens Unit #: [id number]: 1945 Dictated By: Ann SheetsDate of Visit: Feb 03, 2020 Onc MED Follow-Up/Prog Note Chief Complaint: Multiple myeloma. History of Present Illness: Mr Stephens is a 74 year-old man with relapsed IgA kappa myeloma. He has associated end-stage renal disease and anemia. He had pre-existing hypertension, hyperlipidemia, and type II diabetes. He had developed stage III chronic kidney disease following a colonoscopy prep. He had been seeing Dr. Miguelangel Cha for his nephrology follow-up care, and he was then found to have evidence of IgA kappa monoclonal gammopathy in October 2010. He was initially seen here by Dr. Plasencia in September 2011. At that point his protein electrophoresis showed IgA kappa monoclonal protein quantitating at 1.3 g/dL with 0.2 g/dL of free kappa monoclonal protein. UPEP was reportedly unrevealing. Bone marrow aspiration/biopsy showed 12% plasma cells. 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 There was no evidence of lytic bone involvement. His baseline creatinine was 1.8 mg/dL. He was treated initially with 3 cycles of Velcade/dexamethasone between October and December 2011. He required a dose reduction in the Velcade due to neuropathy. His repeat bone marrow aspiration/biopsy at [facility] on 01/01/2012 showed increase in the plasma cells to 17%. He then continued treatment at [facility] with autologous peripheral stem cell transplant in January 2012, assumed to be with high-dose melphalan, though it is not stated in the available records. The procedure was complicated by sepsis and acute renal failure requiring hemodialysis. He had subsequent relapse of the myeloma. His further treatment included 10 cycles of carfilzomib and dexamethasone beginning in May 2015. It was changed to carfilzomib, Revlimid, and dexamethasone beginning in January 2016 due to disease progression. Following further disease progression, his treatment was transitioned to carfilzomib, pomalidomide, and dexamethasone. As of October 2016, due to progressive kidney disease concerning for progressive myeloma, his treatment was changed to daratumumab, Revlimid, and dexamethasone. The Revlimid and dexamethasone were subsequently omitted due to toxicities, and he has since then continued daratumumab as a single agent. It has been administered on a monthly schedule. During this time his kidney function had progressed to end-stage renal disease, and he is on home peritoneal dialysis. He had been receiving treatment at [facility]. He was seen here in October 2017 because he desired to continue his further treatment locally. Following his initial visit he continued monthly daratumumab infusions with no apparent adverse effects and no obvious progression of the myeloma. His hemoglobin/hematocrit levels remained stable above transfusion thresholds. On 06/25/2018 he was seen in the emergency room with increasing weakness. On evaluation, he was found to have a low B12 level at 168 pg/mL, and his TSH level was found to be elevated at 13.500 mIU/mL. He started B12 injections, and he also started thyroid replacement. As of 07/22/2018 there was further decline in the hemoglobin to 8.6 g, and at that point he did start treatment with Procrit. He had a very good response with his hemoglobin increasing to 12.2 g after 2 weekly injections. As of October 2018 he had opted to be admitted to the [place] [facility], and he then began hemodialysis. At that point his erythropoietin stimulating agent was changed to Mircera. He then became progressively more anemic. As of 12/02/2018 his hemoglobin had stabilized at 7.9 g. He then restarted Procrit on 12/17/2018. During this time, he also had continued his monthly daratumumab infusions. His anemia did improve after restarting the Procrit. During follow-up his clinical status had otherwise remained stable. His protein electrophoresis had continued to show a very small M protein spike. There had been no significant change in his serum free light chains. 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 His medical illnesses, in addition to myeloma and renal failure, include hypertension, hyperlipidemia, type II diabetes with peripheral neuropathy, and benign prostatic hypertrophy. He is a nonsmoker. INTERIM HISTORY: He has continued on his monthly daratumumab infusions. As of 12/09/2019 he received cycle 38 of daratumumab. He has been tolerating the treatment well and his clinical status has been stable. However, he has been showing a very gradual increase in his M protein, in the kappa free light chain, and in the kappa/lambda ratio. Mr. Stephens is here today for follow-up. He is due for monthly dose of daratumumab. He states overall he is feeling good. He is frustrated because he cannot get out of the group home facility anymore and is coming to the physician's office. He states he is just been able to walk around and with the COVID-19 virus they have been on shut down . He states he cannot even go work on his house that is empty and no one is been there for months. He is somewhat frustrated by this. He has no other complaints. He denies any fever or chills. He is had no headache, mouth sores or sore throat or difficulty swallowing. He denies any new shortness of breath orthopnea. He denies chest pain or palpitations. He states his bowels are normal for him. His ECOG is 1. We did this his proteins and the fact that they continue to elevate. He is aware that Dr. Pinto had tentatively plan to start him on carfilzomib dexamethasone and Darzalex. However no PA was obtained prior to this visit so therefore we will go ahead with the Darzalex today and add the carfilzomib once the PAs obtained. Mr. Stephens did ask if he could just do the steroids by themselves as he not been taking any. He is aware that he will most likely need to resume the carfilzomib. He has been on it before in [place] and states that he tolerated extremely well. He had no questions regarding the treatment plan. Past Medical History: Benign prostatic hypertrophy End stage renal disease on home peritoneal dialysis Hyperlipidemia Hypertension Multiple myeloma Type II diabetes with peripheral neuropathy Past Surgical History: Placement of peritoneal diaysis catheter Placement of portacath venous access device Fistula in left arm in 2019 Prevnar 13 in 2018 Cataract excision in 2016 Right inguinal hernia repair in 2007 Cholecystectomy in 1983 Allergies: Bactrim, Codeine Sulfate, Sulfa Antibiotics, TraMADol HCl, and Verapamil HCl. Medications: Acetaminophen 2 Tablet (of 325 mg) Oral four times a day PRN Acyclovir 1 Tablet (of 400 mg) Oral daily Albuterol Sulfate 1 Vial(s) (of (2.5 mg/3ml) 0.083%) Nebulization solution Inhalation t.i.d. PRN Albuterol Sulfate 1 Inhalation (of 108 (90 base) mcg/act) Aerosol Powder, Breath Activated Inhalation q 4 hours Allopurinol 1 Tablet (of 100 mg) Oral daily ALPRAZolam 1 Tablet (of 0.25 mg) Oral at bedtime Bisacodyl 1 Suppository (of 10 mg/30mL) Enema Rectal PRN Bisacodyl EC 2 Tablet (of 5 mg) Tablet, enteric coated Oral daily PRN Calcium Acetate 1 Capsule (of 667 mg) Oral t.i.d. Furosemide 1 Tablet (of 80 mg) Oral daily Gentamicin Sulfate 1 (0.1 %) Cream Topical at bedtime Levothyroxine Sodium 1 Tablet (of 50 mcg) Oral daily Loperamide HCl 1 - 2 Tablet (of 2 mg) Oral PRN Lovastatin 1 (40 mg) Tablet Oral at bedtime Mucinex 1 Tablet (of 600 mg) Tablet SR 12 HR Oral b.i.d. PRN Prochlorperazine Maleate 1 Tablet (of 10 mg) Oral q 6 hours PRN Requip 1 Tablet (of 0.5 mg) Oral b.i.d. Tamsulosin HCl 1 Tablet (of 0.4 mg) Capsule Oral b.i.d. Family History: Mr. Stephens's mother at age 82: Breast Cancer at age 70. Mr. Stephens's father at age 40. Mr. Stephens's maternal grandmother at age 80: cancer history consists of Breast cancer at age 80 (cause of ). Father at age 40, cause unknown to the patient. Mother of breast cancer at age 82. His maternal grandmother also had breast cancer. Social History: Mr. Stephens is and he is retired. Mr. Stephens has never smoked. He has no history of drinking. He is a nonsmoker. He does not drink alcohol. Review Of Symptoms: Constitutional Denies fevers, chills, night sweats, excessive fatigue or weight loss. Allergic/Immunologic No reactions. Eyes Denies significant visual changes. No diplopia. No amaurosis. ENMT Denies changes in hearing, sore throat, mouth sores, difficulty or changes in swallowing ability, and/or sinus drainage. Endocrine No diabetes, thyroid disease or hormone replacement. Denies hot flashes or night sweats. Hematologic/Lymphatic Denies easy bruising or bleeding. The patient denies any tender or palpable lymph nodes. Respiratory Denies dyspnea on exertion, chest pain, cough or hemoptysis. Denies orthopnea. Cardiovascular Denies anginal chest pain, palpitations or orthopnea. Gastrointestinal Denies nausea, vomiting, GI bleeding, or constipation. Denies change in bowel habits and/or stool color, no heartburn or early satiety. Genitourinary (M) Denies hematuria, dysuria, increased frequency, urgency, hesitancy or incontinence. Musculoskeletal Denies joint pain, swelling or redness. No decreased range of motion. Integumentary Denies chronic rashes, inflammation, ulcerations or skin changes. Neurologic Denies headache, blurred vision, and no areas of focal weakness or numbness. Normal gait. No sensory problems. Psychiatric Denies insomnia, depression, brielle or mood swings. Vital Signs: Performed on Feb 03, 2020 08:28 Height - 69.00 in Weight - 146.2 lbs (LOW) BSA - 1.81 sq.m BMI - 21.59 Temperature - 97.8 F (LOW) Pulse - 78 /min Respiration - 18 /min BP - 142/68 mm(hg) (HIGH) O2 Sat - 99 % Pain - 0,0 - Fully active, able to carry on all predisease activities without restrictions. (ECOG) Physical Examination: Constitutional Alert, oriented, no acute distress. Skin pink, warm and dry. Head Normocephalic; atraumatic. Eyes Conjunctivae and sclerae are clear and without icterus. Pupils are reactive and equal. Neck Supple without masses or thyromegaly. No jugular venous distension. Hematologic/Lymphatic No petechiae or purpura. No tender or palpable lymph nodes in the cervical or supraclavicular areas. Respiratory Lungs are clear to auscultation without rhonchi or wheezing. Cardiovascular Regular rate and rhythm of heart without murmurs,clicks, gallops or rubs. Abdomen Non-tender, non-distended, no masses, Back/Spine Non-tender to palpation. Extremities No visible deformities, no cyanosis, clubbing or edema. Left arm fistula is unremarkable-no active bleeding and no significant bruising. Musculoskeletal No tenderness or swelling, normal range of motion without obvious weakness. Integumentary No rashes or lesions. Neurologic No sensory or motor deficits, normal cerebellar function, normal gait. Psychiatric Alert and oriented times three. Coherent speech. Verbalizes understanding of our discussions today. Laboratory:Test performed on January 27, 2020 07:10 Sodium 143 mmol/L Potassium 4.5 mmol/L Chloride 99 mmol/L CO2 29 mmol/L Anion Gap 19.5 BUN 33 mg/dL Creatinine 4.7 mg/dL Cr Clearance (Est) 12.6700 mL/min Glucose 57 mg/dL Calcium 9.1 mg/dL Protein, Total 7.0 g/dL Albumin 4.3 g/dL Globulin 2.7 g/dL Bilirubin, Total 0.5 mg/dL ALT (SGPT) 21 U/L AST (SGOT) 18 U/L Alkaline Phosphatase 67 IU/L WBC 4.3 10 3/uL RBC 2.68 10 6/uL HGB 9.3 g/dL HCT 30.1 % MCV 112.3 fL MCH 34.7 pg MCHC 30.9 g/dL RDW 15.3 % Platelet Count 95 10 3/cmm MPV 10.9 fL Neutrophils 2.1 10 3/uL Lymphocytes 1.7 10 3/uL Monocytes 0.4 10 3/uL Eosinophils 0.1 10 3/uL Basophils 0.0 10 3/uL Neutrophil % 49.0 % Lymphocyte % 39.3 % Monocyte % 9.6 % Eosinophil % 1.4 % Basophils % 0.7 % IgG < 300 mg/dL Impression: 1. Patient with IgA kappa myeloma, initially diagnosed in September 2011. He has associated end-stage renal disease and anemia. 2. He had disease progression following initial treatment with 3 cycles of Velcade/dexamethasone completed in December 2011. 3. He underwent autologous peripheral stem cell transplant at [facility] in January 2012, complicated by sepsis and acute renal failure requiring hemodialysis. 4. Following disease recurrence he had further treatment with 10 cycles of carfilzomib and dexamethasone beginning in May 2015. 5. Following disease progression he had further treatment with carfilzomib, Revlimid, and dexamethasone beginning in January 2016, and subsequently with carfilzomib, pomalidomide, and dexamethasone. 6. He then had further decline in kidney function with progression to end-stage renal disease, concerning for progressive myeloma. He began treatment with daratumumab, Revlimid, and dexamethasone beginning in October 2016. His treatment was later transitioned to single agent daratumumab due to toxicities with Revlimid and dexamethasone. He is now receiving daratumumab infusions on a monthly schedule. 7. He has been on daily home peritoneal dialysis for the end-stage renal disease, but he is now going to be starting hemodialysis. 8. 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 In April 2018 he had started treatment with Procrit, and thus far he has had a good clinical response. 9. He has associated hypogammaglobulinemia, but he has not been symptomatic with it. His other medical illnesses include: 10. Hypertension. 11. Hyperlipidemia. 12. Type II diabetes with peripheral neuropathy. 13. Benign prostatic hypertrophy. In June 2018 he was found to have a low B12 level, and he did start B12 replacement. He also was found to have a mildly elevated TSH level, and he also started thyroid replacement. His repeat B12 level in August was actually high, and the B12 injections were subsequently stopped. As of October 2018 he opted to be admitted to the [place] [facility], and he then started hemodialysis. At that point his erythropoietin stimulating agent was changed to Mircera. During subsequent follow-up there was further decline in his hemoglobin, eventually stabilizing at 7.9 g. As of November 2018 he restarted Procrit, and he had a very good clinical response. He has continued monthly daratumumab infusions for the myeloma, and he has continued Procrit injections as needed with this target hemoglobin at 10 g. His protein electrophoresis studies had been showing a gradual increase in the M protein, now to 1.0 g/dL. There also has been gradual increase in the kappa free light chain and in the kappa/lambda ratio. He has not been symptomatic with it, and his clinical status has remained stable. As Mr. August M protein continues to elevate. Dr. Pinto has recommended resuming the carfilzomib dexamethasone in addition to the Darzalex. Plan: 1. Proceed with cycle 40 daratumumab 1,200 mg by IV infusion. 2. continue Procrit as needed with his target hemoglobin at 10 g. 3. Labs from 02/03/2020 Reviewed in detail and discussed with Mr. Stephens and a copy was given to him. WBC 4.3 hemoglobin 9.3, hematocrit is 30.1 platelets 95,000 ANC is 2100. Potassium 4.5 creatinine 4.7 (he is on dialysis) calcium 9.1 LFTs are normal. His abnormal protein band is now reported at 1.2. His kappa light chain is 77.4 and lambda free light chain 5.9 both of those were obtained on 01/27/2020. 4. We are seeking a prior authorization to do a treatment plan for Mr. Stephens. His new treatment will be carfilzomib, dexamethasone and Darzalex. Once we have prior authorization we will schedule him to start the carfilzomib and dexamethasone. He is currently on the Darzalex monthly. 5. Mr. Stephens was instructed to contact us in the interim should questions or problems arise. 6. For follow-up we have scheduled him for Darzalex again in 1 month which time he will need CBC CMP and myeloma labs. Once he starts the carfilzomib he will need weekly labs as well. Signed By: Ann Sheets-, AOCNP Dustin Pinto MD <<Signature on File>>
== END 2020-02-03 08:08 | disposition home or self-care (01) ==
LOC: ONCMED 08:10
PROVIDERS: PCP Family Medicine; Visit Provider Nurse Practitioner
DX: Z51.12 Encounter for antineoplastic immunotherapy (principal); C90.02 Multiple myeloma in relapse; N40.0 Benign prostatic hyperplasia without lower urinary tract symptoms; E78.5 Hyperlipidemia, unspecified; E11.22 Type 2 diabetes mellitus with diabetic chronic kidney disease; E11.42 Type 2 diabetes mellitus with diabetic polyneuropathy; I12.0 Hypertensive chronic kidney disease with stage 5 chronic kidney disease or end stage renal disease; N18.6 End stage renal disease; D63.1 Anemia in chronic kidney disease; D80.1 Nonfamilial hypogammaglobulinemia; Z99.2 Dependence on renal dialysis; Z79.899 Other long term (current) drug therapy
CPT/HCPCS: 96367; 96372; 96413; 96415; 99214; J0885; J1200; J2405; J7040; J7050; J9145; Q4081

== ENCOUNTER 2020-02-17 14:16 | Outpatient (CLI) | payer MEDICARE, OTHER, SELFPAY ==
[2020-02-17 14:34] LABS: Basophils % 0.3 %; Eosinophils % 1.2 %; Hemoglobin 9.2 g/dL (11.7-16.6); Lymphocytes # 1.2 10^3/uL (0.8-4.8); Lymphocytes % 36.4 %; Mean Corpuscular HGB Conc 31.7 g/dL (30.0-36.0); Mean Corpuscular Hemoglobin 35.4 pg (28.0-34.0); Mean Corpuscular Volume 111.5 fL (80-94); Mean Platelet Volume 10.3 fL (7.4-10.4); Monocytes # 0.4 10^3/uL (0.2-0.9); Monocytes % 10.9 %; Neutrophils # 1.7 10^3/uL (1.8-7.7); Neutrophils % 50.9 %; Nucleated Red Blood Cells % 0 %; Platelet Count 109 10^3/cmm (130-400); Red Cell Distribution Width 15.5 % (12.1-15.1); White Blood Count 3.4 10^3/uL (4.0-10.0)
[2020-02-17] MEDS: epoetin alfa 40,000 Unit/mL INJ (non-esrd, onc only) 40000 UNIT SUBCUT (15:00)
== END 2020-02-17 14:17 | disposition home or self-care (01) ==
LOC: ONCMED 14:20
PROVIDERS: PCP Family Medicine; Visit Provider Nurse Practitioner
DX: C90.02 Multiple myeloma in relapse (principal); N40.0 Benign prostatic hyperplasia without lower urinary tract symptoms; E11.42 Type 2 diabetes mellitus with diabetic polyneuropathy; N18.6 End stage renal disease; Z99.2 Dependence on renal dialysis; I12.0 Hypertensive chronic kidney disease with stage 5 chronic kidney disease or end stage renal disease; D63.1 Anemia in chronic kidney disease; D80.1 Nonfamilial hypogammaglobulinemia; E78.5 Hyperlipidemia, unspecified
CPT/HCPCS: 36415; 85025; 96372; J0885; Q4081

== ENCOUNTER 2020-02-22 07:02 | Outpatient (CLI) | payer MEDICARE, OTHER, SELFPAY ==
[2020-02-22 14:42] LABS: Alanine Aminotransferase 29 U/L (0-41); Albumin Level 4.4 g/dL (3.5-5.2); Alkaline Phosphatase 65 IU/L (40-130); Anion Gap 20.5 (5-19); Aspartate Amino Transferase 27 U/L (0-40); Blood Urea Nitrogen 34 mg/dL (8-23); Calcium 9.6 mg/dL (8.5-10.5); Carbon Dioxide 27 mmol/L (22-29); Chloride 97 mmol/L (98-107); Globulin 2.8 g/dL (1.3-4.6); Glucose 59 mg/dL (65-115); Osmolality Calculated 285 mOsm/kg (285-295); Potassium 4.5 mmol/L (3.5-5.1); Sodium 140 mmol/L (136-145); Total Bilirubin 0.5 mg/dL (0.15-1.2); Total Protein 7.2 g/dL (6.6-8.7)
[2020-02-22 15:19] LABS: Immunoglobulin IGA 1598 mg/dL (70-400); Immunoglobulin IGG < 300 mg/dL (700-1600); Immunoglobulin IGM < 25 mg/dL (40-230)
[2020-02-22 15:37] LABS: Basophils % 0.6 %; Eosinophils % 0.9 %; Hematocrit 28.8 % (42.0-52.0); Hemoglobin 9.2 g/dL (11.7-16.6); Lymphocytes # 1.3 10^3/uL (0.8-4.8); Lymphocytes % 28.4 %; Mean Corpuscular HGB Conc 31.9 g/dL (30.0-36.0); Mean Corpuscular Hemoglobin 36.4 pg (28.0-34.0); Mean Corpuscular Volume 113.8 fL (80-94); Mean Platelet Volume 10.5 fL (7.4-10.4); Monocytes # 0.3 10^3/uL (0.2-0.9); Neutrophils % 62.9 %; Nucleated Red Blood Cells % 0 %; Platelet Count 139 10^3/cmm (130-400); Red Blood Count 2.53 10^6/uL (4.1-5.3); Red Cell Distribution Width 16.7 % (12.1-15.1); White Blood Count 4.7 10^3/uL (4.0-10.0)
[2020-02-23 15:16] LABS: ABNORMAL PROTEIN BAND 1 1.2 g/dL (NONE DETECTED); ABNORMAL PROTEIN BAND 2 0.2 g/dL (NONE DETECTED); ALBUMIN 3.9 g/dL (3.8-4.8); ALPHA 1 GLOBULIN 0.3 g/dL (0.2-0.3); ALPHA 2 GLOBULIN 0.6 g/dL (0.5-0.9); BETA 1 GLOBULIN 0.3 g/dL (0.4-0.6); BETA 2 GLOBULIN 0.2 g/dL (0.2-0.5); GAMMA GLOBULIN 1.7 g/dL (0.8-1.7); KAPPA LIGHT CHAIN, FREE, SERUM 119.9 mg/L (3.3-19.4); KAPPA/LAMBDA LIGHT CHAINS FREE 10.52 (0.26-1.65); LAMBDA LIGHT CHAIN, FREE, SERU 11.4 mg/L (5.7-26.3)
== END 2020-02-22 07:03 | disposition home or self-care (01) ==
LOC: ONCMED 15:30
PROVIDERS: PCP Family Medicine; Visit Provider Nurse Practitioner
DX: C90.02 Multiple myeloma in relapse (principal); Z51.81 Encounter for therapeutic drug level monitoring; Z79.899 Other long term (current) drug therapy
CPT/HCPCS: 36415; 80053; 82784; 83883; 84155; 84165; 85025

== ENCOUNTER 2020-02-29 06:50 | Outpatient (CLI) | payer MEDICARE, OTHER, SELFPAY ==
[2020-02-29 13:14] LABS: Basophils % 0.7 %; Eosinophils % 1.3 %; Hematocrit 30.1 % (42.0-52.0); Hemoglobin 9.6 g/dL (11.7-16.6); Lymphocytes # 1.3 10^3/uL (0.8-4.8); Lymphocytes % 43.1 %; Mean Corpuscular HGB Conc 31.9 g/dL (30.0-36.0); Mean Corpuscular Volume 112.7 fL (80-94); Mean Platelet Volume 10.7 fL (7.4-10.4); Monocytes # 0.3 10^3/uL (0.2-0.9); Monocytes % 9.5 %; Neutrophils # 1.4 10^3/uL (1.8-7.7); Neutrophils % 45.1 %; Nucleated Red Blood Cells % 0 %; Platelet Count 105 10^3/cmm (130-400); Red Blood Count 2.67 10^6/uL (4.1-5.3); Red Cell Distribution Width 17.3 % (12.1-15.1)
[2020-02-29 13:51] LABS: Alanine Aminotransferase 36 U/L (0-41); Albumin Level 4.3 g/dL (3.5-5.2); Alkaline Phosphatase 64 IU/L (40-130); Anion Gap 19.8 (5-19); Aspartate Amino Transferase 33 U/L (0-40); Blood Urea Nitrogen 42 mg/dL (8-23); Calcium 9.4 mg/dL (8.5-10.5); Carbon Dioxide 28 mmol/L (22-29); Chloride 97 mmol/L (98-107); Globulin 3.1 g/dL (1.3-4.6); Glucose 53 mg/dL (65-115); Osmolality Calculated 285 mOsm/kg (285-295); Potassium 4.8 mmol/L (3.5-5.1); Sodium 140 mmol/L (136-145); Total Bilirubin 0.5 mg/dL (0.15-1.2); Total Protein 7.4 g/dL (6.6-8.7)
[2020-02-29 14:35] LABS: Immunoglobulin IGA 1786 mg/dL (70-400); Immunoglobulin IGG < 300 mg/dL (700-1600); Immunoglobulin IGM < 25 mg/dL (40-230)
[2020-03-01 14:26] LABS: KAPPA LIGHT CHAIN, FREE, SERUM 113.3 mg/L (3.3-19.4); KAPPA/LAMBDA LIGHT CHAINS FREE 12.73 (0.26-1.65); LAMBDA LIGHT CHAIN, FREE, SERU 8.9 mg/L (5.7-26.3)
[2020-03-01 14:54] LABS: ABNORMAL PROTEIN BAND 1 1.4 g/dL (NONE DETECTED); ABNORMAL PROTEIN BAND 2 0.2 g/dL (NONE DETECTED); ALBUMIN 3.8 g/dL (3.8-4.8); ALPHA 1 GLOBULIN 0.3 g/dL (0.2-0.3); ALPHA 2 GLOBULIN 0.6 g/dL (0.5-0.9); BETA 1 GLOBULIN 0.3 g/dL (0.4-0.6); BETA 2 GLOBULIN 0.2 g/dL (0.2-0.5); GAMMA GLOBULIN 1.9 g/dL (0.8-1.7)
== END 2020-02-29 06:51 | disposition home or self-care (01) ==
LOC: ONCMED 13:23
PROVIDERS: PCP Family Medicine; Visit Provider Nurse Practitioner
DX: C90.02 Multiple myeloma in relapse (principal); Z51.81 Encounter for therapeutic drug level monitoring; Z79.899 Other long term (current) drug therapy
CPT/HCPCS: 36415; 80053; 82784; 83883; 84155; 84165; 85025

== ENCOUNTER 2020-03-01 10:16 | Outpatient (CLI) | payer MEDICARE, OTHER, SELFPAY ==
[2020-03-01] MEDS: acetaminophen 325 mg Tablet 650 MG PO (11:50)
[2020-03-01] MEDS: sodium chloride 0.9% 500 ML 999 ML IV (11:50)
[2020-03-01] MEDS: epoetin alfa 40,000 Unit/mL INJ (non-esrd, onc only) 40000 UNIT SUBCUT (15:15)
--- NOTE | 2020-03-07 13:41 | ONC FU_ITS ---
[facility] Patient Note Patient: Larry Stephens Unit #: [id number]: 1945 Dictated By: Ann SheetsDate of Visit: Mar 01, 2020 Onc MED Follow-Up/Prog Note Chief Complaint: Multiple myeloma. History of Present Illness: Mr Stephens is a 74 year-old man with relapsed IgA kappa myeloma. He has associated end-stage renal disease and anemia. He had pre-existing hypertension, hyperlipidemia, and type II diabetes. He had developed stage III chronic kidney disease following a colonoscopy prep. He had been seeing Dr. Miguelangel Cha for his nephrology follow-up care, and he was then found to have evidence of IgA kappa monoclonal gammopathy in October 2010. He was initially seen here by Dr. Plasencia in September 2011. At that point his protein electrophoresis showed IgA kappa monoclonal protein quantitating at 1.3 g/dL with 0.2 g/dL of free kappa monoclonal protein. UPEP was reportedly unrevealing. Bone marrow aspiration/biopsy showed 12% plasma cells. 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 There was no evidence of lytic bone involvement. His baseline creatinine was 1.8 mg/dL. He was treated initially with 3 cycles of Velcade/dexamethasone between October and December 2011. He required a dose reduction in the Velcade due to neuropathy. His repeat bone marrow aspiration/biopsy at [facility] on 01/01/2012 showed increase in the plasma cells to 17%. He then continued treatment at [facility] with autologous peripheral stem cell transplant in January 2012, assumed to be with high-dose melphalan, though it is not stated in the available records. The procedure was complicated by sepsis and acute renal failure requiring hemodialysis. He had subsequent relapse of the myeloma. His further treatment included 10 cycles of carfilzomib and dexamethasone beginning in May 2015. It was changed to carfilzomib, Revlimid, and dexamethasone beginning in January 2016 due to disease progression. Following further disease progression, his treatment was transitioned to carfilzomib, pomalidomide, and dexamethasone. As of October 2016, due to progressive kidney disease concerning for progressive myeloma, his treatment was changed to daratumumab, Revlimid, and dexamethasone. The Revlimid and dexamethasone were subsequently omitted due to toxicities, and he has since then continued daratumumab as a single agent. It has been administered on a monthly schedule. During this time his kidney function had progressed to end-stage renal disease, and he is on home peritoneal dialysis. He had been receiving treatment at [facility]. He was seen here in October 2017 because he desired to continue his further treatment locally. Following his initial visit he continued monthly daratumumab infusions with no apparent adverse effects and no obvious progression of the myeloma. His hemoglobin/hematocrit levels remained stable above transfusion thresholds. On 06/25/2018 he was seen in the emergency room with increasing weakness. On evaluation, he was found to have a low B12 level at 168 pg/mL, and his TSH level was found to be elevated at 13.500 mIU/mL. He started B12 injections, and he also started thyroid replacement. As of 07/22/2018 there was further decline in the hemoglobin to 8.6 g, and at that point he did start treatment with Procrit. He had a very good response with his hemoglobin increasing to 12.2 g after 2 weekly injections. As of October 2018 he had [facility], and he then began hemodialysis. At that point his erythropoietin stimulating agent was changed to Mircera. He then became progressively more anemic. As of 12/02/2018 his hemoglobin had stabilized at 7.9 g. He then restarted Procrit on 12/17/2018. During this time, he also had continued his monthly daratumumab infusions. His anemia did improve after restarting the Procrit. During follow-up his clinical status had otherwise remained stable. His protein electrophoresis had continued to show a very small M protein spike. There had been no significant change in his serum free light chains. 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 His medical illnesses, in addition to myeloma and renal failure, include hypertension, hyperlipidemia, type II diabetes with peripheral neuropathy, and benign prostatic hypertrophy. He is a nonsmoker. INTERIM HISTORY: He has continued on his monthly daratumumab infusions. As of 12/09/2019 he received cycle 38 of daratumumab. He has been tolerating the treatment well and his clinical status has been stable. However, he has continually shown a very gradual increase in his M protein, in the kappa free light chain, and in the kappa/lambda ratio. His kappa light chain on 02/22/2020 was 119.9, lambda light chain 11.4, kappa/lambda light chain ratio 10.52 compared to kappa light chain on 01/27/2020 reported a 77.4, the lambda light chain was 5.9 and the kappa lambda ratio was 13.12. Given the continued increase in the M protein. Dr. Pinto has recommended that he start carfilzomib, dexamethasone and continue with the Darzalex. Mr. Stephens has finally gotten prior approval to start this regimen. He is here today for follow-up and will start his carfilzomib today along with the Darzalex. He did have echocardiogram 2D Via [facility] imaging on 02/11/2020. Reported a left ventricular ejection fraction of 65%. There were no other abnormalities noted in the impression was normal echocardiogram . Mr. Stephens reports that he is doing good overall. He feels pretty good. He has had no fever or chills. He denies any exposure to the COVID-19. He denies being around anyone sick. He did start Famvir for prophylaxis but had trouble tolerating it, so is back to the acyclovir twice a day. He denies any other concerns. His ECOG is 1. Past Medical History: Benign prostatic hypertrophy End stage renal disease on home peritoneal dialysis Hyperlipidemia Hypertension Multiple myeloma Type II diabetes with peripheral neuropathy Past Surgical History: Placement of peritoneal diaysis catheter Placement of portacath venous access device Fistula in left arm in 2019 Prevnar 13 in 2018 Cataract excision in 2016 Right inguinal hernia repair in 2007 Cholecystectomy in 1983 Allergies: Bactrim, Codeine Sulfate, Sulfa Antibiotics, TraMADol HCl, and Verapamil HCl. Medications: Acetaminophen 2 Tablet (of 325 mg) Oral four times a day PRN Acyclovir 1 Tablet (of 400 mg) Oral daily Albuterol Sulfate 1 Vial(s) (of (2.5 mg/3ml) 0.083%) Nebulization solution Inhalation t.i.d. PRN Albuterol Sulfate 1 Inhalation (of 108 (90 base) mcg/act) Aerosol Powder, Breath Activated Inhalation q 4 hours Allopurinol 1 Tablet (of 100 mg) Oral daily ALPRAZolam 1 Tablet (of 0.25 mg) Oral at bedtime amLODIPine Besylate 1 Tablet (of 2.5 mg) Oral daily amLODIPine Besylate 1 Tablet (of 2.5 mg) Oral daily Bisacodyl 1 Suppository (of 10 mg/30mL) Enema Rectal PRN Bisacodyl EC 2 Tablet (of 5 mg) Tablet, enteric coated Oral daily PRN Calcium Acetate 1 Capsule (of 667 mg) Oral t.i.d. Cipro 1 Tablet (of 500 mg) Oral b.i.d. Fluconazole 1 Tablet (of 100 mg) Oral daily Furosemide 1 Tablet (of 80 mg) Oral daily Gentamicin Sulfate 1 (0.1 %) Cream Topical at bedtime Levothyroxine Sodium 1 Tablet (of 50 mcg) Oral daily Loperamide HCl 1 - 2 Tablet (of 2 mg) Oral PRN Lovastatin 1 (40 mg) Tablet Oral at bedtime Mucinex 1 Tablet (of 600 mg) Tablet SR 12 HR Oral b.i.d. PRN Prochlorperazine Maleate 1 Tablet (of 10 mg) Oral q 6 hours PRN Requip 1 Tablet (of 0.5 mg) Oral b.i.d. Tamsulosin HCl 1 Tablet (of 0.4 mg) Capsule Oral b.i.d. Family History: Mr. Stephens's mother at age 82: Breast Cancer at age 70. Mr. Stephens's father at age 40. Mr. Stephens's maternal grandmother at age 80: cancer history consists of Breast cancer at age 80 (cause of ). Father at age 40, cause unknown to the patient. Mother of breast cancer at age 82. His maternal grandmother also had breast cancer. Social History: Mr. Stephens is and he is retired. Mr. Stephens has never smoked. He has no history of drinking. He is a nonsmoker. He does not drink alcohol. Review Of Symptoms: Constitutional Denies fevers, chills, night sweats, excessive fatigue or weight loss. Allergic/Immunologic No reactions. Eyes Denies significant visual changes. No diplopia. No amaurosis. ENMT Denies changes in hearing, sore throat, mouth sores, difficulty or changes in swallowing ability, and/or sinus drainage. Endocrine No diabetes, thyroid disease or hormone replacement. Denies hot flashes or night sweats. Hematologic/Lymphatic Denies easy bruising or bleeding. The patient denies any tender or palpable lymph nodes. Respiratory Denies dyspnea on exertion, chest pain, cough or hemoptysis. Denies orthopnea. Cardiovascular Denies anginal chest pain, palpitations or orthopnea. Gastrointestinal Denies nausea, vomiting, GI bleeding, or constipation. Denies change in bowel habits and/or stool color, no heartburn or early satiety. Genitourinary (M) Denies hematuria, dysuria, increased frequency, urgency, hesitancy or incontinence. Musculoskeletal Denies joint pain, swelling or redness. No decreased range of motion. Integumentary Denies chronic rashes, inflammation, ulcerations or skin changes. Neurologic Denies headache, blurred vision, and no areas of focal weakness or numbness. Normal gait. No sensory problems. Psychiatric Denies insomnia, depression, brielle or mood swings. Vital Signs: Performed on Mar 01, 2020 11:07 Height - 69.00 in Weight - 144 lbs (LOW) BSA - 1.80 sq.m BMI - 21.27 Temperature - 97.8 F (LOW) Pulse - 70 /min Respiration - 19 /min BP - 114/54 mm(hg) O2 Sat - 100 % Pain - 0,2 - Ambulatory/capable of all self-care, unable to perform any work activities. Up and about more than 50% of waking hours. (ECOG) Physical Examination: Constitutional Alert, oriented, no acute distress. Skin pink, warm and dry. Head Normocephalic; atraumatic. Eyes Conjunctivae and sclerae are clear and without icterus. Pupils are reactive and equal. Neck Supple without masses or thyromegaly. No jugular venous distension. Hematologic/Lymphatic No petechiae or purpura. No tender or palpable lymph nodes in the cervical or supraclavicular areas. Respiratory Lungs are clear to auscultation without rhonchi or wheezing. Cardiovascular Regular rate and rhythm of heart without murmurs,clicks, gallops or rubs. Abdomen Non-tender, non-distended, no masses, Back/Spine Non-tender to palpation. Extremities No visible deformities, no cyanosis, clubbing or edema. Left arm fistula is unremarkable-no active bleeding and no significant bruising. Musculoskeletal No tenderness or swelling, normal range of motion without obvious weakness. Integumentary No rashes or lesions. Neurologic No sensory or motor deficits, normal cerebellar function, normal gait. Psychiatric Alert and oriented times three. Coherent speech. Verbalizes understanding of our discussions today. Impression: 1. Patient with IgA kappa myeloma, initially diagnosed in September 2011. He has associated end-stage renal disease and anemia. 2. He had disease progression following initial treatment with 3 cycles of Velcade/dexamethasone completed in December 2011. 3. He underwent autologous peripheral stem cell transplant at [facility] in January 2012, complicated by sepsis and acute renal failure requiring hemodialysis. 4. Following disease recurrence he had further treatment with 10 cycles of carfilzomib and dexamethasone beginning in May 2015. 5. Following disease progression he had further treatment with carfilzomib, Revlimid, and dexamethasone beginning in January 2016, and subsequently with carfilzomib, pomalidomide, and dexamethasone. 6. He then had further decline in kidney function with progression to end-stage renal disease, concerning for progressive myeloma. He began treatment with daratumumab, Revlimid, and dexamethasone beginning in October 2016. His treatment was later transitioned to single agent daratumumab due to toxicities with Revlimid and dexamethasone. He is now receiving daratumumab infusions on a monthly schedule. 7. He has been on daily home peritoneal dialysis for the end-stage renal disease, but he is now going to be starting hemodialysis. 8. 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 In April 2018 he had started treatment with Procrit, and thus far he has had a good clinical response. 9. He has associated hypogammaglobulinemia, but he has not been symptomatic with it. His other medical illnesses include: 10. Hypertension. 11. Hyperlipidemia. 12. Type II diabetes with peripheral neuropathy. 13. Benign prostatic hypertrophy. In June 2018 he was found to have a low B12 level, and he did start B12 replacement. He also was found to have a mildly elevated TSH level, and he also started thyroid replacement. His repeat B12 level in August was actually high, and the B12 injections were subsequently stopped. As of October 2018 he [facility], and he then started hemodialysis. At that point his erythropoietin stimulating agent was changed to Mircera. During subsequent follow-up there was further decline in his hemoglobin, eventually stabilizing at 7.9 g. As of November 2018 he restarted Procrit, and he had a very good clinical response. He has continued monthly daratumumab infusions for the myeloma, and he has continued Procrit injections as needed with this target hemoglobin at 10 g. His protein electrophoresis studies had been showing a gradual increase in the M protein, now to 1.0 g/dL. There also has been gradual increase in the kappa free light chain and in the kappa/lambda ratio. He has not been symptomatic with it, and his clinical status has remained stable. As Mr. August M protein continues to elevate. Dr. Pinto has recommended resuming the carfilzomib dexamethasone in addition to the Darzalex. He will begin his first cycle today. Plan: 1. Proceed with cycle 1 carfilzomib, dexamethasone, Darzalex. He has now completed 40 cycles of the daratumumab/Darzalex. The carfilzomib will be day 1 and 2, 8 and 9, 15 and 16 of a 28-day cycle. His daratumumab is now monthly???every 28 days. 2. Labs from February 29, 2020 were reviewed in detail discussed with Mr. Stephens and a copy was given to him. WBC 3.0, hemoglobin 9.6, platelets 105,000 ANC is 1400. Random glucose was 53 LFTs are normal. Creatinine???he is on hemodialysis Friday. 3. He will receive his dexamethasone while here on the day of carfilzomib treatment. 4. We will plan to have him return in 1 week with CBC CMP which is been done the day before his treatment via in-home labs so that we have results when he is here. 5. Mr. Stepehns is instructed to contact us in the interim should questions or problems arise. 6. Echocardiogram from 02/11/2020 reports a normal LVEF at 65%. This was done via [facility] out of [facility]. 7. His kappa light chain from 01/27/2020 was 77.4 and 119.9 on 02/22/2020. 8. He will have Procrit today as his hemoglobin was 9.6 yesterday. Signed By: Ann Sheets-, [facility] Dustin Pinto MD <<Signature on File>>
== END 2020-03-01 10:17 | disposition home or self-care (01) ==
LOC: ONCMED 10:20
PROVIDERS: PCP Family Medicine; Visit Provider Nurse Practitioner
DX: Z51.12 Encounter for antineoplastic immunotherapy (principal); C90.02 Multiple myeloma in relapse; N18.6 End stage renal disease; Z99.2 Dependence on renal dialysis; N40.0 Benign prostatic hyperplasia without lower urinary tract symptoms; I12.0 Hypertensive chronic kidney disease with stage 5 chronic kidney disease or end stage renal disease; E78.5 Hyperlipidemia, unspecified; E11.42 Type 2 diabetes mellitus with diabetic polyneuropathy; D63.1 Anemia in chronic kidney disease
CPT/HCPCS: 96361; 96367; 96372; 96413; 96415; 96417; 99214; J0885; J1100; J1200; J2405; J7040; J9047; J9145; Q4081

== ENCOUNTER 2020-03-02 08:56 | Outpatient (CLI) | payer MEDICARE, OTHER, SELFPAY ==
[2020-03-02] MEDS: sodium chloride 0.9% 500 ML 999 ML IV (09:17)
== END 2020-03-02 08:57 | disposition home or self-care (01) ==
PROVIDERS: PCP Family Medicine; Visit Provider Internal Medicine Medical Oncology
DX: Z51.11 Encounter for antineoplastic chemotherapy (principal); C90.02 Multiple myeloma in relapse; N18.6 End stage renal disease; Z99.2 Dependence on renal dialysis; N40.0 Benign prostatic hyperplasia without lower urinary tract symptoms; E78.5 Hyperlipidemia, unspecified; I12.0 Hypertensive chronic kidney disease with stage 5 chronic kidney disease or end stage renal disease; E11.42 Type 2 diabetes mellitus with diabetic polyneuropathy; D63.1 Anemia in chronic kidney disease
CPT/HCPCS: 96361; 96367; 96413; J1100; J1200; J2469; J7040; J9047

== ENCOUNTER 2020-03-07 06:55 | Outpatient (CLI) | payer MEDICARE, OTHER, SELFPAY ==
[2020-03-07 09:33] LABS: Basophils % 0.3 %; Eosinophils # 0.1 10^3/uL (0.0-0.8); Hematocrit 29.9 % (42.0-52.0); Hemoglobin 9.4 g/dL (11.7-16.6); Lymphocytes # 1.2 10^3/uL (0.8-4.8); Mean Corpuscular HGB Conc 31.4 g/dL (30.0-36.0); Mean Corpuscular Hemoglobin 35.6 pg (28.0-34.0); Mean Corpuscular Volume 113.3 fL (80-94); Mean Platelet Volume 11.8 fL (7.4-10.4); Monocytes # 0.4 10^3/uL (0.2-0.9); Monocytes % 12.5 %; Neutrophils # 1.4 10^3/uL (1.8-7.7); Neutrophils % 45.9 %; Nucleated Red Blood Cells % 0.7 %; Platelet Count 98 10^3/cmm (130-400); Red Blood Count 2.64 10^6/uL (4.1-5.3); Red Cell Distribution Width 17.1 % (12.1-15.1); White Blood Count 3.1 10^3/uL (4.0-10.0)
[2020-03-07 10:36] LABS: Alanine Aminotransferase 90 U/L (0-41); Albumin Level 3.8 g/dL (3.5-5.2); Alkaline Phosphatase 63 IU/L (40-130); Anion Gap 19.3 (5-19); Aspartate Amino Transferase 64 U/L (0-40); Blood Urea Nitrogen 39 mg/dL (8-23); Calcium 8.8 mg/dL (8.5-10.5); Carbon Dioxide 25 mmol/L (22-29); Chloride 100 mmol/L (98-107); Globulin 3.3 g/dL (1.3-4.6); Glucose 69 mg/dL (65-115); Osmolality Calculated 284 mOsm/kg (285-295); Potassium 5.3 mmol/L (3.5-5.1); Sodium 139 mmol/L (136-145); Total Bilirubin 0.4 mg/dL (0.15-1.2); Total Protein 7.1 g/dL (6.6-8.7)
== END 2020-03-07 06:56 | disposition home or self-care (01) ==
LOC: ONCMED 11:05
PROVIDERS: PCP Family Medicine; Visit Provider Nurse Practitioner
DX: C90.02 Multiple myeloma in relapse (principal); N18.6 End stage renal disease; Z99.2 Dependence on renal dialysis; N40.0 Benign prostatic hyperplasia without lower urinary tract symptoms; E11.42 Type 2 diabetes mellitus with diabetic polyneuropathy; I12.0 Hypertensive chronic kidney disease with stage 5 chronic kidney disease or end stage renal disease; E78.5 Hyperlipidemia, unspecified; D63.1 Anemia in chronic kidney disease
CPT/HCPCS: 80053; 85025

== ENCOUNTER 2020-03-08 11:12 | Outpatient (CLI) | payer MEDICARE, OTHER, SELFPAY ==
[2020-03-08] MEDS: dexamethasone 20 MG in sodium chloride 0.9% 50 ML 188 MG IV (12:15)
[2020-03-08] MEDS: sodium chloride 0.9% 500 ML 999 ML IV (13:07)
--- NOTE | 2020-03-11 12:13 | ONC FU_ITS ---
Dr. Pinto Patient Follow-Up Note Patient: Larry Stephens Unit #: [id number]: [id number] Dicatated By: Dustin Pinto M.D.Date of Visit:Mar 08, 2020 Onc Med Follow-up/Prog Note Chief Complaint: Multiple myeloma. History of Present Illness: This is a 74 year-old man with relapsed IgA kappa myeloma. He has associated end-stage renal disease and anemia. He had pre-existing hypertension, hyperlipidemia, and type II diabetes. He had developed stage III chronic kidney disease following a colonoscopy prep. He had been seeing Dr. Miguelangel Cha for his nephrology follow-up care, and he was then found to have evidence of IgA kappa monoclonal gammopathy in October 2010. He was initially seen here by Dr. Plasencia in September 2011. At that point his protein electrophoresis showed IgA kappa monoclonal protein quantitating at 1.3 g/dL with 0.2 g/dL of free kappa monoclonal protein. UPEP was reportedly unrevealing. Bone marrow aspiration/biopsy showed 12% plasma cells. 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 There was no evidence of lytic bone involvement. His baseline creatinine was 1.8 mg/dL. He was treated initially with 3 cycles of Velcade/dexamethasone between October and December 2011. He required a dose reduction in the Velcade due to neuropathy. His repeat bone marrow aspiration/biopsy at [facility] on 01/01/2012 showed increase in the plasma cells to 17%. He then continued treatment at [facility] with autologous peripheral stem cell transplant in January 2012, I assume with high-dose melphalan, though it is not stated in the available records. The procedure was complicated by sepsis and acute renal failure requiring hemodialysis. He had subsequent relapse of the myeloma. His further treatment included 10 cycles of carfilzomib and dexamethasone beginning in May 2015. It was changed to carfilzomib, Revlimid, and dexamethasone beginning in January 2016 due to disease progression. Following further disease progression, his treatment was transitioned to carfilzomib, pomalidomide, and dexamethasone. As of October 2016, due to progressive kidney disease concerning for progressive myeloma, his treatment was changed to daratumumab, Revlimid, and dexamethasone. The Revlimid and dexamethasone were subsequently omitted due to toxicities, and he has since then continued daratumumab as a single agent. It has been administered on a monthly schedule. During this time his kidney function had progressed to end-stage renal disease, and he is on home peritoneal dialysis. He had been receiving treatment at [facility]. He was seen here in October 2017 because he desired to continue his further treatment locally. Following his initial visit he continued monthly daratumumab infusions with no apparent adverse effects and no obvious progression of the myeloma. His hemoglobin/hematocrit levels remained stable above transfusion thresholds. On 06/25/2018 he was seen in the emergency room with increasing weakness. On evaluation, he was found to have a low B12 level at 168 pg/mL, and his TSH level was found to be elevated at 13.500 mIU/mL. He started B12 injections, and he also started thyroid replacement. As of 07/22/2018 there was further decline in the hemoglobin to 8.6 g, and at that point he did start treatment with Procrit. He had a very good response with his hemoglobin increasing to 12.2 g after 2 weekly injections. As of October 2018 [facility], and he then began hemodialysis. At that point his erythropoietin stimulating agent was changed to Mircera. He then became progressively more anemic. As of 12/02/2018 his hemoglobin had stabilized at 7.9 g. He then restarted Procrit on 12/17/2018. During this time, he also had continued his monthly daratumumab infusions. His anemia did improve after restarting the Procrit. During follow-up his clinical status had otherwise remained stable. His protein electrophoresis had continued to show a very small M protein spike. There had been no significant change in his serum free light chains. 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 His medical illnesses, in addition to myeloma and renal failure, include hypertension, hyperlipidemia, type II diabetes with peripheral neuropathy, and benign prostatic hypertrophy. He is a nonsmoker. INTERIM HISTORY: He then continued on his monthly daratumumab infusions. As of 12/09/2019 he received cycle 38 of daratumumab. He had been tolerating the treatment well and his clinical status had been stable. However, he had been showing a very gradual increase in his M protein, in the kappa free light chain, and in the kappa/lambda ratio. I had discussed options for further treatment, and we ultimately decided to just try adding back carfilzomib. He began cycle 1 of daratumumab in combination with carfilzomib and dexamethasone on 03/01/2020. He tolerated the day 1 and day 2 carfilzomib infusions without acute toxicity. He is seen for a scheduled visit. He has been feeling pretty good generally. He has limited activity, but part of that is related to [facility] and having restrictions imposed by the coronavirus pandemic. His ECOG score is 2. He has good appetite. He has no fever or night sweats. He has had no mouth sores. He has no shortness of breath, cough, or chest pain. He has no GI complaints. He is still making a little bit of urine. His bladder function has been okay. He has no significant joint or bone pain. He has a little bit of numbness/tingling in his feet. Medications: Acetaminophen 2 Tablet (of 325 mg) Oral four times a day PRN, Acyclovir 1 Tablet (of 400 mg) Oral daily, Albuterol Sulfate 1 Vial(s) (of (2.5 mg/3ml) 0.083%) Nebulization solution Inhalation t.i.d. PRN, Albuterol Sulfate 1 Inhalation (of 108 (90 base) mcg/act) Aerosol Powder, Breath Activated Inhalation q 4 hours, Allopurinol 1 Tablet (of 100 mg) Oral daily, ALPRAZolam 1 Tablet (of 0.25 mg) Oral at bedtime, amLODIPine Besylate 1 Tablet (of 2.5 mg) Oral daily, Bisacodyl 1 Suppository (of 10 mg/30mL) Enema Rectal PRN, Bisacodyl EC 2 Tablet (of 5 mg) Tablet, enteric coated Oral daily PRN, Calcium Acetate 1 Capsule (of 667 mg) Oral t.i.d., Cholecalciferol Tablet Oral, Cipro 1 Tablet (of 500 mg) Oral b.i.d., Fluconazole 1 Tablet (of 100 mg) Oral daily, Furosemide 1 Tablet (of 80 mg) Oral daily, Gentamicin Sulfate 1 (0.1 %) Cream Topical at bedtime, Levothyroxine Sodium 1 Tablet (of 50 mcg) Oral daily, Loperamide HCl 1 - 2 Tablet (of 2 mg) Oral PRN, Lovastatin 1 (40 mg) Tablet Oral at bedtime, Mucinex 1 Tablet (of 600 mg) Tablet SR 12 HR Oral b.i.d. PRN, Prochlorperazine Maleate 1 Tablet (of 10 mg) Oral q 6 hours PRN, Requip 1 Tablet (of 0.5 mg) Oral b.i.d., Tamsulosin HCl 1 Tablet (of 0.4 mg) Capsule Oral b.i.d. Allergies: Bactrim, Codeine Sulfate, Sulfa Antibiotics, TraMADol HCl, and Verapamil HCl. Review of Systems: Constitutional - He is feeling good. He is not doing much due to COVID restrictions at his facility. His appetite is good and weight is stable. No fever, night sweats, or hot flashes. ECOG score is 2, ENMT - No sinus congestion/drainage. No mouth sores. No sore throat or difficulty swallowing, Hematologic/Lymphatic - He bruises easily, Respiratory - No shortness of breath. No cough. No pleuritic pain or hemoptysis, Cardiovascular - No angina pain. No palpitations, Gastrointestinal - No nausea or vomiting. No heartburn or acid reflux. No diarrhea or constipation. No blood in the stool or black stools, Genitourinary (M) - He still has a little urine output. No dysuria or hematuria. No urinary frequency. No urgency or incontinence, Musculoskeletal - No joint or bone pain, Integumentary - No skin complications, Neurologic - No headache or dizziness. He has some numbness and tingling in his feet. No other focal neurologic symptoms, Psychiatric - No anxiety or depression. No insomnia. Vital Signs: Performed on Mar 08, 2020 11:18 Height - 69.00 in Weight - 146.6 lbs (HIGH) BSA - 1.81 sq.m BMI - 21.65 Temperature - 97.9 F (LOW) Pulse - 56 /min (LOW) Respiration - 17 /min BP - 105/55 mm(hg) O2 Sat - 99 % Pain - 0 Physical Examination: Constitutional - He looks pretty good generally, Eyes - Sclerae nonicteric. Conjunctivae clear, ENMT - No lesions noted in the oral cavity, Hematologic/Lymphatic - No cervical, clavicular, or axillary adenopathy, Respiratory - Lungs are clear with good air movement bilaterally, Cardiovascular - Heart rhythm is regular with some premature beats. There is a I/ systolic murmur. There is no gallop or rub noted, Abdomen - Soft. Liver and spleen are not enlarged. There is no abdominal mass or ascites noted and there is no inguinal adenopathy, Extremities - No edema. He has extensive purpura, Neurologic - No focal neurologic deficits noted. Lab/Imaging: CBC shows hemoglobin 9.4 g, white blood cell count 3100, and platelet count 98,000. Impression: 1. Patient with IgA kappa myeloma, initially diagnosed in September 2011. He has associated end-stage renal disease and anemia. 2. He had disease progression following initial treatment with 3 cycles of Velcade/dexamethasone completed in December 2011. 3. He underwent autologous peripheral stem cell transplant at [facility] in January 2012, complicated by sepsis and acute renal failure requiring hemodialysis. 4. Following disease recurrence he had further treatment with 10 cycles of carfilzomib and dexamethasone beginning in May 2015. 5. Following disease progression he had further treatment with carfilzomib, Revlimid, and dexamethasone beginning in January 2016, and subsequently with carfilzomib, pomalidomide, and dexamethasone. 6. He then had further decline in kidney function with progression to end-stage renal disease, concerning for progressive myeloma. He began treatment with daratumumab, Revlimid, and dexamethasone beginning in October 2016. His treatment was later transitioned to single agent daratumumab due to toxicities with Revlimid and dexamethasone. He is now receiving daratumumab infusions on a monthly schedule. 7. He has been on daily home peritoneal dialysis for the end-stage renal disease, but he is now going to be starting hemodialysis. 8. 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 In April 2018 he had started treatment with Procrit, and thus far he has had a good clinical response. 9. He has associated hypogammaglobulinemia, but he has not been symptomatic with it. His other medical illnesses include: 10. Hypertension. 11. Hyperlipidemia. 12. Type II diabetes with peripheral neuropathy. 13. Benign prostatic hypertrophy. In June 2018 he was found to have a low B12 level, and he did start B12 replacement. He also was found to have a mildly elevated TSH level, and he also started thyroid replacement. His repeat B12 level in August was actually high, and the B12 injections were subsequently stopped. As of October 2018 [facility], and he then started hemodialysis. At that point his erythropoietin stimulating agent was changed to Mircera. During subsequent follow-up there was further decline in his hemoglobin, eventually stabilizing at 7.9 g. As of November 2018 he restarted Procrit, and he had a very good clinical response. He has continued monthly daratumumab infusions for the myeloma, and he has continued Procrit injections as needed with this target hemoglobin at 10 g. His protein electrophoresis studies had been showing a gradual increase in the M protein and in the kappa free light chain and in the kappa/lambda ratio. He was not overtly symptomatic with it, by with the progressive increase, I did recommend a change in his treatment regimen. We discussed several options and he ultimately decided to try adding back carfilzomib. He began cycle 1 of daratumumab in combination with carfilzomib and dexamethasone on 03/01/2020. He tolerated the day 1 and day 2 carfilzomib infusions without acute toxicity. His clinical status at this point appears stable. Plan: He will continue now with his day 8 and day 9 carfilzomib infusions. He also indicates that he is willing to try a higher dosage of dexamethasone, so it will now be increased to 20 mg. He returns in 1 week. Signed By: Dustin Pinto M.D. <<Signature on File>>
== END 2020-03-08 11:13 | disposition home or self-care (01) ==
LOC: ONCMED 11:15
PROVIDERS: PCP Family Medicine; Visit Provider Internal Medicine Medical Oncology
DX: Z51.11 Encounter for antineoplastic chemotherapy (principal); C90.02 Multiple myeloma in relapse; E11.22 Type 2 diabetes mellitus with diabetic chronic kidney disease; I12.0 Hypertensive chronic kidney disease with stage 5 chronic kidney disease or end stage renal disease; N18.6 End stage renal disease; D63.1 Anemia in chronic kidney disease; Z99.2 Dependence on renal dialysis; Z94.84 Stem cells transplant status; D80.1 Nonfamilial hypogammaglobulinemia; E78.5 Hyperlipidemia, unspecified; E11.42 Type 2 diabetes mellitus with diabetic polyneuropathy; N40.0 Benign prostatic hyperplasia without lower urinary tract symptoms
CPT/HCPCS: 96361; 96367; 96372; 96413; 99214; J1100; J1200; J2405; J7040; J9047; Q4081

== ENCOUNTER 2020-03-09 08:32 | Outpatient (CLI) | payer MEDICARE, OTHER, SELFPAY ==
[2020-03-09] MEDS: sodium chloride 0.9% 500 ML 999 ML IV (08:45)
[2020-03-09] MEDS: dexamethasone 20 MG in sodium chloride 0.9% 50 ML 188 MG IV (08:50)
[2020-03-09] MEDS: palonosetron 0.25 mg/5 mL SDV IV (08:50)
== END 2020-03-09 08:33 | disposition home or self-care (01) ==
LOC: ONCMED 08:34
PROVIDERS: PCP Family Medicine; Visit Provider Internal Medicine Medical Oncology
DX: C90.02 Multiple myeloma in relapse (principal); N18.6 End stage renal disease; Z99.2 Dependence on renal dialysis; N40.0 Benign prostatic hyperplasia without lower urinary tract symptoms; E78.5 Hyperlipidemia, unspecified; E11.42 Type 2 diabetes mellitus with diabetic polyneuropathy; I12.0 Hypertensive chronic kidney disease with stage 5 chronic kidney disease or end stage renal disease
CPT/HCPCS: 96361; 96367; 96413; J1100; J1200; J2469; J7040; J9047

== ENCOUNTER 2020-03-14 06:40 | Outpatient (CLI) | payer MEDICARE, OTHER, SELFPAY ==
[2020-03-14 14:33] LABS: Eosinophils % 0.7 %; Hematocrit 30.5 % (42.0-52.0); Hemoglobin 9.6 g/dL (11.7-16.6); Lymphocytes # 1.2 10^3/uL (0.8-4.8); Lymphocytes % 27.6 %; Mean Corpuscular HGB Conc 31.5 g/dL (30.0-36.0); Mean Corpuscular Hemoglobin 36.8 pg (28.0-34.0); Mean Corpuscular Volume 116.9 fL (80-94); Mean Platelet Volume 11.8 fL (7.4-10.4); Monocytes # 0.4 10^3/uL (0.2-0.9); Neutrophils # 2.72 10^3/uL (1.8-7.7); Neutrophils % 62.5 %; Nucleated Red Blood Cells % 0.5 %; Platelet Count 68 10^3/cmm (130-400); Red Blood Count 2.61 10^6/uL (4.1-5.3); Red Cell Distribution Width 18.2 % (12.1-15.1); White Blood Count 4.4 10^3/uL (4.0-10.0)
[2020-03-14 14:53] LABS: Alanine Aminotransferase 118 U/L (0-41); Albumin Level 3.9 g/dL (3.5-5.2); Alkaline Phosphatase 69 IU/L (40-130); Anion Gap 18.9 (5-19); Aspartate Amino Transferase 47 U/L (0-40); Blood Urea Nitrogen 49 mg/dL (8-23); Calcium 8.9 mg/dL (8.5-10.5); Carbon Dioxide 29 mmol/L (22-29); Chloride 102 mmol/L (98-107); Globulin 2.5 g/dL (1.3-4.6); Glucose 56 mg/dL (65-115); Osmolality Calculated 294 mOsm/kg (285-295); Potassium 5.9 mmol/L (3.5-5.1); Sodium 144 mmol/L (136-145); Total Bilirubin 0.6 mg/dL (0.15-1.2); Total Protein 6.4 g/dL (6.6-8.7)
== END 2020-03-14 06:41 | disposition home or self-care (01) ==
LOC: ONCMED 10:44
PROVIDERS: PCP Family Medicine; Visit Provider Internal Medicine Medical Oncology
DX: C90.02 Multiple myeloma in relapse (principal); N18.6 End stage renal disease; Z99.2 Dependence on renal dialysis; N40.0 Benign prostatic hyperplasia without lower urinary tract symptoms; E78.5 Hyperlipidemia, unspecified; E11.42 Type 2 diabetes mellitus with diabetic polyneuropathy; I12.0 Hypertensive chronic kidney disease with stage 5 chronic kidney disease or end stage renal disease; D63.1 Anemia in chronic kidney disease
CPT/HCPCS: 80053; 85025

== ENCOUNTER 2020-03-15 10:51 | Outpatient (CLI) | payer MEDICARE, OTHER, SELFPAY ==
[2020-03-15] MEDS: sodium chloride 0.9% 500 ML 999 ML IV (11:50)
--- NOTE | 2020-03-15 11:53 | ONC FU_ITS ---
[facility] Patient Note Patient: Larry Stephens Unit #: [id number]: 1945 Dictated By: Ann SheetsDate of Visit: Mar 15, 2020 Onc MED Follow-Up/Prog Note Chief Complaint: Multiple myeloma. History of Present Illness: Mr Stephens is a 74 year-old man with relapsed IgA kappa myeloma. He has associated end-stage renal disease and anemia. He had pre-existing hypertension, hyperlipidemia, and type II diabetes. He had developed stage III chronic kidney disease following a colonoscopy prep. He had been seeing Dr. Miguelangel Cha for his nephrology follow-up care, and he was then found to have evidence of IgA kappa monoclonal gammopathy in October 2010. He was initially seen here by Dr. Plasencia in September 2011. At that point his protein electrophoresis showed IgA kappa monoclonal protein quantitating at 1.3 g/dL with 0.2 g/dL of free kappa monoclonal protein. UPEP was reportedly unrevealing. Bone marrow aspiration/biopsy showed 12% plasma cells. 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 There was no evidence of lytic bone involvement. His baseline creatinine was 1.8 mg/dL. He was treated initially with 3 cycles of Velcade/dexamethasone between October and December 2011. He required a dose reduction in the Velcade due to neuropathy. His repeat bone marrow aspiration/biopsy at [facility] on 01/01/2012 showed increase in the plasma cells to 17%. He then continued treatment at [facility] with autologous peripheral stem cell transplant in January 2012, I assume with high-dose melphalan, though it is not stated in the available records. The procedure was complicated by sepsis and acute renal failure requiring hemodialysis. He had subsequent relapse of the myeloma. His further treatment included 10 cycles of carfilzomib and dexamethasone beginning in May 2015. It was changed to carfilzomib, Revlimid, and dexamethasone beginning in January 2016 due to disease progression. Following further disease progression, his treatment was transitioned to carfilzomib, pomalidomide, and dexamethasone. As of October 2016, due to progressive kidney disease concerning for progressive myeloma, his treatment was changed to daratumumab, Revlimid, and dexamethasone. The Revlimid and dexamethasone were subsequently omitted due to toxicities, and he has since then continued daratumumab as a single agent. It has been administered on a monthly schedule. During this time his kidney function had progressed to end-stage renal disease, and he is on home peritoneal dialysis. He had been receiving treatment at [facility]. He was seen here in October 2017 because he desired to continue his further treatment locally. Following his initial visit he continued monthly daratumumab infusions with no apparent adverse effects and no obvious progression of the myeloma. His hemoglobin/hematocrit levels remained stable above transfusion thresholds. On 06/25/2018 he was seen in the emergency room with increasing weakness. On evaluation, he was found to have a low B12 level at 168 pg/mL, and his TSH level was found to be elevated at 13.500 mIU/mL. He started B12 injections, and he also started thyroid replacement. As of 07/22/2018 there was further decline in the hemoglobin to 8.6 g, and at that point he did start treatment with Procrit. He had a very good response with his hemoglobin increasing to 12.2 g after 2 weekly injections. As of October 2018 he had opted to be [facility], and he then began hemodialysis. At that point his erythropoietin stimulating agent was changed to Mircera. He then became progressively more anemic. As of 12/02/2018 his hemoglobin had stabilized at 7.9 g. He then restarted Procrit on 12/17/2018. During this time, he also had continued his monthly daratumumab infusions. His anemia did improve after restarting the Procrit. During follow-up his clinical status had otherwise remained stable. His protein electrophoresis had continued to show a very small M protein spike. There had been no significant change in his serum free light chains. 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 His medical illnesses, in addition to myeloma and renal failure, include hypertension, hyperlipidemia, type II diabetes with peripheral neuropathy, and benign prostatic hypertrophy. He is a nonsmoker. INTERIM HISTORY: He then continued on his monthly daratumumab infusions. As of 12/09/2019 he received cycle 38 of daratumumab. He had been tolerating the treatment well and his clinical status had been stable. However, he had been showing a very gradual increase in his M protein, in the kappa free light chain, and in the kappa/lambda ratio. I had discussed options for further treatment, and we ultimately decided to just try adding back carfilzomib. He began cycle 1 of daratumumab in combination with carfilzomib and dexamethasone on 03/01/2020. He has tolerated bro 1 carfilzomib infusions without acute toxicity thus far. Mr. Stephens is here today for follow-up. He is due for day 15 and 16 of carfilzomib. He states overall he is doing well. He remains very active is???as much as he can do with limited activity [facility] due to the pandemic. He denies any new concerns. He is tolerating dialysis well. He has had no bleeding from his fistula. He states he is eating good. And he has no new pain. He denies any other concerns. He denies nausea or vomiting. He denies any diarrhea or constipation. He states his bladder is normal for him. His ECOG is 1. Past Medical History: Benign prostatic hypertrophy End stage renal disease on home peritoneal dialysis Hyperlipidemia Hypertension Multiple myeloma Type II diabetes with peripheral neuropathy Past Surgical History: Placement of peritoneal diaysis catheter Placement of portacath venous access device Fistula in left arm in 2019 Prevnar 13 in 2018 Cataract excision in 2016 Right inguinal hernia repair in 2007 Cholecystectomy in 1983 Allergies: Bactrim, Codeine Sulfate, Sulfa Antibiotics, TraMADol HCl, and Verapamil HCl. Medications: Acetaminophen 2 Tablet (of 325 mg) Oral four times a day PRN Acyclovir 1 Tablet (of 400 mg) Oral daily Albuterol Sulfate 1 Vial(s) (of (2.5 mg/3ml) 0.083%) Nebulization solution Inhalation t.i.d. PRN Albuterol Sulfate 1 Inhalation (of 108 (90 base) mcg/act) Aerosol Powder, Breath Activated Inhalation q 4 hours Allopurinol 1 Tablet (of 100 mg) Oral daily ALPRAZolam 1 Tablet (of 0.25 mg) Oral at bedtime amLODIPine Besylate 1 Tablet (of 2.5 mg) Oral daily Bisacodyl EC 2 Tablet (of 5 mg) Tablet, enteric coated Oral daily PRN Calcium Acetate 1 Capsule (of 667 mg) Oral t.i.d. Cholecalciferol Tablet Oral Cipro 1 Tablet (of 500 mg) Oral b.i.d. Fluconazole 1 Tablet (of 100 mg) Oral daily Furosemide 1 Tablet (of 80 mg) Oral daily Gentamicin Sulfate 1 (0.1 %) Cream Topical at bedtime Levothyroxine Sodium 1 Tablet (of 50 mcg) Oral daily Loperamide HCl 1 - 2 Tablet (of 2 mg) Oral PRN Lovastatin 1 (40 mg) Tablet Oral at bedtime Mucinex 1 Tablet (of 600 mg) Tablet SR 12 HR Oral b.i.d. PRN Prochlorperazine Maleate 1 Tablet (of 10 mg) Oral q 6 hours PRN Requip 1 Tablet (of 0.5 mg) Oral b.i.d. Tamsulosin HCl 1 Tablet (of 0.4 mg) Capsule Oral b.i.d. Family History: Mr. Stephens's mother at age 82: Breast Cancer at age 70. Mr. Stephens's father at age 40. Mr. Stephens's maternal grandmother at age 80: cancer history consists of Breast cancer at age 80 (cause of ). Father at age 40, cause unknown to the patient. Mother of breast cancer at age 82. His maternal grandmother also had breast cancer. Social History: Mr. Stephens is and he is retired. Mr. Stephens has never smoked. He has no history of drinking. He is a nonsmoker. He does not drink alcohol. Review Of Symptoms: Constitutional Denies fevers, chills, night sweats, excessive fatigue or weight loss. Allergic/Immunologic No reactions. Eyes Denies significant visual changes. No diplopia. No amaurosis. ENMT Denies changes in hearing, sore throat, mouth sores, difficulty or changes in swallowing ability, and/or sinus drainage. Endocrine No diabetes, thyroid disease or hormone replacement. Denies hot flashes or night sweats. Hematologic/Lymphatic Denies easy bruising or bleeding. The patient denies any tender or palpable lymph nodes. Respiratory Denies dyspnea on exertion, chest pain, cough or hemoptysis. Denies orthopnea. Cardiovascular Denies anginal chest pain, palpitations or orthopnea. Gastrointestinal Denies nausea, vomiting, GI bleeding, or constipation. Denies change in bowel habits and/or stool color, no heartburn or early satiety. Genitourinary (M) Denies hematuria, dysuria, increased frequency, urgency, hesitancy or incontinence. Musculoskeletal Denies joint pain, swelling or redness. No decreased range of motion. Integumentary Denies chronic rashes, inflammation, ulcerations or skin changes. Neurologic Denies headache, blurred vision, and no areas of focal weakness or numbness. Normal gait. No sensory problems. Psychiatric Denies insomnia, depression, brielle or mood swings. Vital Signs: Performed on Mar 15, 2020 11:09 Height - 69.00 in Weight - 146.6 lbs BSA - 1.81 sq.m BMI - 21.65 Temperature - 97.5 F (LOW) Pulse - 81 /min Respiration - 18 /min BP - 109/57 mm(hg) O2 Sat - 99 % Pain - 0,1 - No physically strenuous activity, but ambulatory and able to carry out light or sedentary work (e.g. office work, light house work). (ECOG) Physical Examination: Constitutional Alert, oriented, no acute distress. Skin pink, warm and dry. Head Normocephalic; atraumatic. Eyes Conjunctivae and sclerae are clear and without icterus. Pupils are reactive and equal. Neck Supple without masses or thyromegaly. No jugular venous distension. Hematologic/Lymphatic No petechiae or purpura. Some bruising on hands-chronic Respiratory Lungs are clear to auscultation without rhonchi or wheezing. Cardiovascular Regular rate and rhythm of heart without murmurs,clicks, gallops or rubs. Abdomen Non-tender, non-distended, no masses, Back/Spine Non-tender to palpation. Extremities No visible deformities, no cyanosis, clubbing or edema. Left arm fistula is unremarkable-no active bleeding and no significant bruising. Musculoskeletal No tenderness or swelling, normal range of motion without obvious weakness. Integumentary No rashes or lesions. Neurologic No sensory or motor deficits, normal cerebellar function, normal gait. Psychiatric Alert and oriented times three. Coherent speech. Verbalizes understanding of our discussions today. Laboratory:Test performed on Feb 17, 2020 14:25 WBC 3.4 10 3/uL RBC 2.60 10 6/uL HGB 9.2 g/dL HCT 29.0 % MCV 111.5 fL MCH 35.4 pg MCHC 31.7 g/dL RDW 15.5 % Platelet Count 109 10 3/cmm MPV 10.3 fL Neutrophils 1.7 10 3/uL Lymphocytes 1.2 10 3/uL Monocytes 0.4 10 3/uL Eosinophils 0.0 10 3/uL Basophils 0.0 10 3/uL Neutrophil % 50.9 % Lymphocyte % 36.4 % Monocyte % 10.9 % Eosinophil % 1.2 % Basophils % 0.3 % NRBC % 0 % Test performed on January 27, 2020 07:10 Sodium 143 mmol/L Potassium 4.5 mmol/L Chloride 99 mmol/L CO2 29 mmol/L Anion Gap 19.5 BUN 33 mg/dL Creatinine 4.7 mg/dL Cr Clearance (Est) 12.6700 mL/min Glucose 57 mg/dL Calcium 9.1 mg/dL Protein, Total 7.0 g/dL Albumin 4.3 g/dL Globulin 2.7 g/dL Bilirubin, Total 0.5 mg/dL ALT (SGPT) 21 U/L AST (SGOT) 18 U/L Alkaline Phosphatase 67 IU/L IgG < 300 mg/dL Test performed on Dec 30, 2019 07:25 ESR (Sed Rate) 60 mm/hr IgA 1333 mg/dL IgM < 25 mg/dL Test performed on Dec 02, 2019 08:10 LDH (Total) 166 U/L Test performed on Oct 07, 2019 08:10 Albumin, SPE 4.0 g/dL Manual Lymphocytes 25.5 % Manual Monocytes 8.3 % Manual Eosinophils 1.6 % Manual Basophils 0.5 % [place] / Lambda Ratio 5.33 Absolute Value Lambda Light Chain 8.0 [place] Light Chain 42.6 [id number] 0.3 g/dL [id number] 0.6 g/dL Gamma Globulin 0.8 g/dL SPE Interpretation Final restricted band (M-spike) migrating in the gamma region Test performed on Oct 06, 2019 00:00 % Iron Saturation 45 % Phosphorous 5.2 mg/dL Iron, Total 88 mcg/dL TIBC 194 mcg/dL Impression: 1. Patient with IgA kappa myeloma, initially diagnosed in September 2011. He has associated end-stage renal disease and anemia. 2. He had disease progression following initial treatment with 3 cycles of Velcade/dexamethasone completed in December 2011. 3. He underwent autologous peripheral stem cell transplant at [facility] in January 2012, complicated by sepsis and acute renal failure requiring hemodialysis. 4. Following disease recurrence he had further treatment with 10 cycles of carfilzomib and dexamethasone beginning in May 2015. 5. Following disease progression he had further treatment with carfilzomib, Revlimid, and dexamethasone beginning in January 2016, and subsequently with carfilzomib, pomalidomide, and dexamethasone. 6. He then had further decline in kidney function with progression to end-stage renal disease, concerning for progressive myeloma. He began treatment with daratumumab, Revlimid, and dexamethasone beginning in October 2016. His treatment was later transitioned to single agent daratumumab due to toxicities with Revlimid and dexamethasone. He is now receiving daratumumab infusions on a monthly schedule. 7. He has been on daily home peritoneal dialysis for the end-stage renal disease, but he is now going to be starting hemodialysis. 8. 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 In April 2018 he had started treatment with Procrit, and thus far he has had a good clinical response. 9. He has associated hypogammaglobulinemia, but he has not been symptomatic with it. His other medical illnesses include: 10. Hypertension. 11. Hyperlipidemia. 12. Type II diabetes with peripheral neuropathy. 13. Benign prostatic hypertrophy. In June 2018 he was found to have a low B12 level, and he did start B12 replacement. He also was found to have a mildly elevated TSH level, and he also started thyroid replacement. His repeat B12 level in August was actually high, and the B12 injections were subsequently stopped. As of October 2018 he opted to be [facility], and he then started hemodialysis. At that point his erythropoietin stimulating agent was changed to Mircera. During subsequent follow-up there was further decline in his hemoglobin, eventually stabilizing at 7.9 g. As of November 2018 he restarted Procrit, and he had a very good clinical response. He has continued monthly daratumumab infusions for the myeloma, and he has continued Procrit injections as needed with this target hemoglobin at 10 g. His protein electrophoresis studies had been showing a gradual increase in the M protein and in the kappa free light chain and in the kappa/lambda ratio. He was not overtly symptomatic with it, by with the progressive increase, I did recommend a change in his treatment regimen. We discussed several options and he ultimately decided to try adding back carfilzomib. He began cycle 1 of daratumumab in combination with carfilzomib and dexamethasone on 03/01/2020. He tolerated the day 1 and day 2 carfilzomib infusions without acute toxicity. His clinical status at this point appears stable. Plan: 1. Proceed with his day 15 and day 16 carfilzomib infusions. Platelets are 68,000 today. 2. Continue dexamethasone 20 mg. 3. 2019 labs were reviewed in detail and discussed with Mr. Stephens and a copy was given to him. WBC 4.4, hemoglobin 9.6, platelets 68,000, ANC 2700. Potassium 5.9 (dialysis) LFTs are normal. 4. We did discuss his platelet count of 68,000 at length. He is aware to watch for bleeding especially from his fistula. He states he is really not worried about that as he puts up blood clotting bandage and pressure dressing on the fistula after each dialysis. He denies any further increase in bruising and has had no other bleeding. He has had not had bleeding to the fistula in some time. 5. We will plan to recheck his CBC in 1 week. 6. He is due for Procrit today as hemoglobin is 9.6. 7. We will see him back in 2 weeks with CBC CMP and myeloma labs. 8. Mr. Stephens was instructed to contact us in interim should questions or problems arise. Signed By: Ann Sheets-, CNP Dustin Pinto MD <<Signature on File>>
[2020-03-15] MEDS: dexamethasone 20 MG in sodium chloride 0.9% 50 ML 188 MG IV (12:06)
== END 2020-03-15 10:52 | disposition home or self-care (01) ==
LOC: ONCMED 10:55
PROVIDERS: PCP Family Medicine; Visit Provider Nurse Practitioner
DX: C90.02 Multiple myeloma in relapse (principal); E78.5 Hyperlipidemia, unspecified; E11.42 Type 2 diabetes mellitus with diabetic polyneuropathy; N40.0 Benign prostatic hyperplasia without lower urinary tract symptoms; Z79.899 Other long term (current) drug therapy; I12.0 Hypertensive chronic kidney disease with stage 5 chronic kidney disease or end stage renal disease; N18.6 End stage renal disease; Z99.2 Dependence on renal dialysis
CPT/HCPCS: 96361; 96367; 96372; 96413; 99214; J1100; J1200; J2405; J7040; J9047; Q4081

== ENCOUNTER 2020-03-16 08:26 | Outpatient (CLI) | payer MEDICARE, OTHER, SELFPAY ==
[2020-03-16] MEDS: sodium chloride 0.9% 500 ML 999 ML IV (09:21)
== END 2020-03-16 08:27 | disposition home or self-care (01) ==
LOC: ONCMED 08:29
PROVIDERS: PCP Family Medicine; Visit Provider Nurse Practitioner
DX: C90.02 Multiple myeloma in relapse (principal); N18.6 End stage renal disease; Z99.2 Dependence on renal dialysis; N40.0 Benign prostatic hyperplasia without lower urinary tract symptoms; I12.0 Hypertensive chronic kidney disease with stage 5 chronic kidney disease or end stage renal disease; E11.42 Type 2 diabetes mellitus with diabetic polyneuropathy; D63.1 Anemia in chronic kidney disease; E78.5 Hyperlipidemia, unspecified
CPT/HCPCS: 96361; 96367; 96413; J1100; J1200; J2469; J7040; J9047

== ENCOUNTER 2020-03-21 11:41 | Outpatient (CLI) | payer MEDICARE, OTHER, SELFPAY ==
[2020-03-21 09:27] LABS: Hematocrit 32.2 % (42.0-52.0); Hemoglobin 10.6 g/dL (11.7-16.6); Lymphocytes # 0.4 10^3/uL (0.8-4.8); Lymphocytes % 8.4 %; Mean Corpuscular HGB Conc 32.9 g/dL (30.0-36.0); Mean Corpuscular Hemoglobin 37.3 pg (28.0-34.0); Mean Corpuscular Volume 113.4 fL (80-94); Mean Platelet Volume 12.6 fL (7.4-10.4); Monocytes # 0.1 10^3/uL (0.2-0.9); Monocytes % 2.7 %; Neutrophils % 88.3 %; Nucleated Red Blood Cells % 0.4 %; Platelet Count 77 10^3/cmm (130-400); Red Blood Count 2.84 10^6/uL (4.1-5.3); Red Cell Distribution Width 18.5 % (12.1-15.1); White Blood Count 4.8 10^3/uL (4.0-10.0)
[2020-03-21 10:06] LABS: Immunoglobulin IGA 1617 mg/dL (70-400); Immunoglobulin IGG < 300 mg/dL (700-1600); Immunoglobulin IGM < 25 mg/dL (40-230)
[2020-03-22 12:09] LABS: ABNORMAL PROTEIN BAND 1 1.2 g/dL (NONE DETECTED); ALBUMIN 4.1 g/dL (3.8-4.8); ALPHA 1 GLOBULIN 0.3 g/dL (0.2-0.3); ALPHA 2 GLOBULIN 0.6 g/dL (0.5-0.9); BETA 1 GLOBULIN 0.3 g/dL (0.4-0.6); BETA 2 GLOBULIN 0.2 g/dL (0.2-0.5); GAMMA GLOBULIN 1.6 g/dL (0.8-1.7)
[2020-03-22 16:55] LABS: KAPPA LIGHT CHAIN, FREE, SERUM 51.4 mg/L (3.3-19.4); LAMBDA LIGHT CHAIN, FREE, SERU <1.5 mg/L (5.7-26.3)
== END 2020-03-21 11:42 | disposition home or self-care (01) ==
LOC: ONCMED 11:41
PROVIDERS: PCP Family Medicine; Visit Provider Nurse Practitioner
DX: C90.02 Multiple myeloma in relapse (principal); Z51.81 Encounter for therapeutic drug level monitoring; Z79.899 Other long term (current) drug therapy; D69.6 Thrombocytopenia, unspecified
CPT/HCPCS: 82784; 83883; 84155; 84165; 85025

== ENCOUNTER 2020-03-28 07:00 | Outpatient (CLI) | payer MEDICARE, OTHER, SELFPAY ==
[2020-03-28 11:03] LABS: Basophils % 0.3 %; Eosinophils # 0.1 10^3/uL (0.0-0.8); Eosinophils % 1.6 %; Hematocrit 31.4 % (42.0-52.0); Hemoglobin 9.9 g/dL (11.7-16.6); Lymphocytes % 31.9 %; Mean Corpuscular HGB Conc 31.5 g/dL (30.0-36.0); Mean Corpuscular Hemoglobin 36.5 pg (28.0-34.0); Mean Corpuscular Volume 115.9 fL (80-94); Mean Platelet Volume 11.3 fL (7.4-10.4); Monocytes # 0.4 10^3/uL (0.2-0.9); Monocytes % 11.8 %; Neutrophils # 1.69 10^3/uL (1.8-7.7); Neutrophils % 54.1 %; Nucleated Red Blood Cells % 0 %; Platelet Count 95 10^3/cmm (130-400); Red Blood Count 2.71 10^6/uL (4.1-5.3); White Blood Count 3.1 10^3/uL (4.0-10.0)
[2020-03-28 11:41] LABS: Immunoglobulin IGA 1452 mg/dL (70-400); Immunoglobulin IGG < 300 mg/dL (700-1600); Immunoglobulin IGM < 25 mg/dL (40-230)
[2020-03-29 15:35] LABS: KAPPA LIGHT CHAIN, FREE, SERUM 52.3 mg/L (3.3-19.4); KAPPA/LAMBDA LIGHT CHAINS FREE 29.06 (0.26-1.65); LAMBDA LIGHT CHAIN, FREE, SERU 1.8 mg/L (5.7-26.3)
[2020-03-29 16:05] LABS: PROTEIN, TOTAL 6.4 g/dL (6.1-8.1)
[2020-03-30 13:24] LABS: ABNORMAL PROTEIN BAND 1 1.3 g/dL (NONE DETECTED); ALBUMIN 3.6 g/dL (3.8-4.8); ALPHA 1 GLOBULIN 0.2 g/dL (0.2-0.3); ALPHA 2 GLOBULIN 0.6 g/dL (0.5-0.9); BETA 1 GLOBULIN 0.3 g/dL (0.4-0.6); BETA 2 GLOBULIN 0.2 g/dL (0.2-0.5); GAMMA GLOBULIN 1.5 g/dL (0.8-1.7)
== END 2020-03-28 07:01 | disposition home or self-care (01) ==
LOC: ONCMED 10:48
PROVIDERS: PCP Family Medicine; Visit Provider Nurse Practitioner
DX: C90.02 Multiple myeloma in relapse (principal); Z51.81 Encounter for therapeutic drug level monitoring; Z79.899 Other long term (current) drug therapy
CPT/HCPCS: 82784; 83883; 84155; 84165; 85025

== ENCOUNTER 2020-03-29 11:16 | Outpatient (CLI) | payer MEDICARE, OTHER, SELFPAY ==
[2020-03-29] MEDS: acetaminophen 325 mg Tablet 650 MG PO (13:00)
[2020-03-29] MEDS: sodium chloride 0.9% 1,000 ML 999 ML IV (13:00)
[2020-03-29] MEDS: dexamethasone 20 MG in sodium chloride 0.9% 50 ML 188 MG IV (13:16)
--- NOTE | 2020-04-02 16:34 | ONC FU_ITS ---
[facility] Patient Note Patient: Larry Stephens Unit #: [id number]: 1945 Dictated By: Ann SheetsDate of Visit: Mar 29, 2020 Onc MED Follow-Up/Prog Note Chief Complaint: Multiple myeloma. History of Present Illness: Mr Stephens is a 74 year-old man with relapsed IgA kappa myeloma. He has associated end-stage renal disease and anemia. He had pre-existing hypertension, hyperlipidemia, and type II diabetes. He had developed stage III chronic kidney disease following a colonoscopy prep. He had been seeing Dr. Miguelangel Cha for his nephrology follow-up care, and he was then found to have evidence of IgA kappa monoclonal gammopathy in October 2010. He was initially seen here by Dr. Plasencia in September 2011. At that point his protein electrophoresis showed IgA kappa monoclonal protein quantitating at 1.3 g/dL with 0.2 g/dL of free kappa monoclonal protein. UPEP was reportedly unrevealing. Bone marrow aspiration/biopsy showed 12% plasma cells. 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 There was no evidence of lytic bone involvement. His baseline creatinine was 1.8 mg/dL. He was treated initially with 3 cycles of Velcade/dexamethasone between October and December 2011. He required a dose reduction in the Velcade due to neuropathy. His repeat bone marrow aspiration/biopsy at [facility] on 01/01/2012 showed increase in the plasma cells to 17%. He then continued treatment at [facility] with autologous peripheral stem cell transplant in January 2012, I assume with high-dose melphalan, though it is not stated in the available records. The procedure was complicated by sepsis and acute renal failure requiring hemodialysis. He had subsequent relapse of the myeloma. His further treatment included 10 cycles of carfilzomib and dexamethasone beginning in May 2015. It was changed to carfilzomib, Revlimid, and dexamethasone beginning in January 2016 due to disease progression. Following further disease progression, his treatment was transitioned to carfilzomib, pomalidomide, and dexamethasone. As of October 2016, due to progressive kidney disease concerning for progressive myeloma, his treatment was changed to daratumumab, Revlimid, and dexamethasone. The Revlimid and dexamethasone were subsequently omitted due to toxicities, and he has since then continued daratumumab as a single agent. It has been administered on a monthly schedule. During this time his kidney function had progressed to end-stage renal disease, and he is on home peritoneal dialysis. He had been receiving treatment at [facility]. He was seen here in October 2017 because he desired to continue his further treatment locally. Following his initial visit he continued monthly daratumumab infusions with no apparent adverse effects and no obvious progression of the myeloma. His hemoglobin/hematocrit levels remained stable above transfusion thresholds. On 06/25/2018 he was seen in the emergency room with increasing weakness. On evaluation, he was found to have a low B12 level at 168 pg/mL, and his TSH level was found to be elevated at 13.500 mIU/mL. He started B12 injections, and he also started thyroid replacement. As of 07/22/2018 there was further decline in the hemoglobin to 8.6 g, and at that point he did start treatment with Procrit. He had a very good response with his hemoglobin increasing to 12.2 g after 2 weekly injections. As of October 2018 he had opted to be admitted to the skilled nursing, and he then began hemodialysis. At that point his erythropoietin stimulating agent was changed to Mircera. He then became progressively more anemic. As of 12/02/2018 his hemoglobin had stabilized at 7.9 g. He then restarted Procrit on 12/17/2018. During this time, he also had continued his monthly daratumumab infusions. His anemia did improve after restarting the Procrit. During follow-up his clinical status had otherwise remained stable. His protein electrophoresis had continued to show a very small M protein spike. There had been no significant change in his serum free light chains. 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 His medical illnesses, in addition to myeloma and renal failure, include hypertension, hyperlipidemia, type II diabetes with peripheral neuropathy, and benign prostatic hypertrophy. He is a nonsmoker. INTERIM HISTORY: He then continued on his monthly daratumumab infusions. As of 12/09/2019 he received cycle 38 of daratumumab. He had been tolerating the treatment well and his clinical status had been stable. However, he had been showing a very gradual increase in his M protein, in the kappa free light chain, and in the kappa/lambda ratio. I had discussed options for further treatment, and we ultimately decided to just try adding back carfilzomib. He began cycle 1 of daratumumab in combination with carfilzomib and dexamethasone on 03/01/2020. He has tolerated bro 1 carfilzomib infusions without acute toxicity thus far. Mr. Stephens is here today for follow-up. He is due for cycle 2 day 1 and 2 of carfilzomib. He states overall he is doing well. He reinforces that he feels really well. He remains very active ???as much as he can do with limited activity in the [facility] facility/assisted living due to the pandemic. He recently sold his house that he has been cleaning out for sometime. He states that is a relief. He denies any new concerns. He is tolerating dialysis well. He has had no bleeding from his fistula. He states he is eating good. And he has no new pain. He denies any other concerns. He denies nausea or vomiting. He denies any diarrhea or constipation. His ECOG is 1. Past Medical History: Benign prostatic hypertrophy End stage renal disease on home peritoneal dialysis Hyperlipidemia Hypertension Multiple myeloma Type II diabetes with peripheral neuropathy Past Surgical History: Placement of peritoneal diaysis catheter Placement of portacath venous access device Fistula in left arm in 2019 Prevnar 13 in 2018 Cataract excision in 2016 Right inguinal hernia repair in 2007 Cholecystectomy in 1983 Allergies: Bactrim, Codeine Sulfate, Sulfa Antibiotics, TraMADol HCl, and Verapamil HCl. Medications: Acetaminophen 2 Tablet (of 325 mg) Oral four times a day PRN Acyclovir 1 Tablet (of 400 mg) Oral daily Albuterol Sulfate 1 Vial(s) (of (2.5 mg/3ml) 0.083%) Nebulization solution Inhalation t.i.d. PRN Albuterol Sulfate 1 Inhalation (of 108 (90 base) mcg/act) Aerosol Powder, Breath Activated Inhalation q 4 hours Allopurinol 1 Tablet (of 100 mg) Oral daily ALPRAZolam 1 Tablet (of 0.25 mg) Oral at bedtime amLODIPine Besylate 1 Tablet (of 2.5 mg) Oral daily Bisacodyl EC 2 Tablet (of 5 mg) Tablet, enteric coated Oral daily PRN Calcium Acetate 1 Capsule (of 667 mg) Oral t.i.d. Cholecalciferol Tablet Oral Cipro 1 Tablet (of 500 mg) Oral b.i.d. Fluconazole 1 Tablet (of 100 mg) Oral daily Furosemide 1 Tablet (of 80 mg) Oral daily Gentamicin Sulfate 1 (0.1 %) Cream Topical at bedtime Levothyroxine Sodium 1 Tablet (of 50 mcg) Oral daily Loperamide HCl 1 - 2 Tablet (of 2 mg) Oral PRN Lovastatin 1 (40 mg) Tablet Oral at bedtime Mucinex 1 Tablet (of 600 mg) Tablet SR 12 HR Oral b.i.d. PRN Prochlorperazine Maleate 1 Tablet (of 10 mg) Oral q 6 hours PRN Requip 1 Tablet (of 0.5 mg) Oral b.i.d. Tamsulosin HCl 1 Tablet (of 0.4 mg) Capsule Oral b.i.d. Family History: Mr. Stephens's mother at age 82: Breast Cancer at age 70. Mr. Stephens's father at age 40. Mr. Stephens's maternal grandmother at age 80: cancer history consists of Breast cancer at age 80 (cause of ). Father at age 40, cause unknown to the patient. Mother of breast cancer at age 82. His maternal grandmother also had breast cancer. Social History: Mr. Stephens is and he is retired. Mr. Stephens has never smoked. He has no history of drinking. He is a nonsmoker. He does not drink alcohol. Review Of Symptoms: Constitutional Denies fevers, chills, night sweats, excessive fatigue or weight loss. Allergic/Immunologic No reactions. Eyes Denies significant visual changes. No diplopia. No amaurosis. ENMT Denies changes in hearing, sore throat, mouth sores, difficulty or changes in swallowing ability, and/or sinus drainage. Endocrine No diabetes, thyroid disease or hormone replacement. Denies hot flashes or night sweats. Hematologic/Lymphatic Denies easy bruising or bleeding. The patient denies any tender or palpable lymph nodes. Respiratory Denies dyspnea on exertion, chest pain, cough or hemoptysis. Denies orthopnea. Cardiovascular Denies anginal chest pain, palpitations or orthopnea. Gastrointestinal Denies nausea, vomiting, GI bleeding, or constipation. Denies change in bowel habits and/or stool color, no heartburn or early satiety. Genitourinary (M) Denies hematuria, dysuria, increased frequency, urgency, hesitancy or incontinence. Musculoskeletal Denies joint pain, swelling or redness. No decreased range of motion. Integumentary Denies chronic rashes, inflammation, ulcerations or skin changes. Neurologic Denies headache, blurred vision, and no areas of focal weakness or numbness. Normal gait. No sensory problems. Psychiatric Denies insomnia, depression, brielle or mood swings. Vital Signs: Performed on Mar 29, 2020 12:18 Height - 69.00 in Weight - 146.2 lbs (LOW) BSA - 1.81 sq.m BMI - 21.59 Temperature - 97.8 F (LOW) Pulse - 81 /min Respiration - 19 /min BP - 129/53 mm(hg) O2 Sat - 99 % Pain - 0,0 - Fully active, able to carry on all predisease activities without restrictions. (ECOG) Physical Examination: Constitutional Alert, oriented, no acute distress. Skin pink, warm and dry. Head Normocephalic; atraumatic. Eyes Conjunctivae and sclerae are clear and without icterus. Pupils are reactive and equal. Neck Supple without masses or thyromegaly. No jugular venous distension. Hematologic/Lymphatic No petechiae or purpura. Some bruising on hands-chronic Respiratory Lungs are clear to auscultation without rhonchi or wheezing. Cardiovascular Regular rate and rhythm of heart without murmurs,clicks, gallops or rubs. Abdomen Non-tender, non-distended, no masses, Back/Spine Non-tender to palpation. Extremities No visible deformities, no cyanosis, clubbing or edema. Left arm fistula is unremarkable-no active bleeding and no significant bruising. Musculoskeletal No tenderness or swelling, normal range of motion without obvious weakness. Integumentary No rashes or lesions. Neurologic No sensory or motor deficits, normal cerebellar function, normal gait. Psychiatric Alert and oriented times three. Coherent speech. Verbalizes understanding of our discussions today. Laboratory:Test performed on Mar 14, 2020 06:40 Sodium 144 mmol/L Potassium 5.9 mmol/L Chloride 102 mmol/L CO2 29 mmol/L Anion Gap 18.9 BUN 49 mg/dL Creatinine 5.4 mg/dL Cr Clearance (Est) 11.4300 mL/min Glucose 56 mg/dL Calcium 8.9 mg/dL Protein, Total 6.4 g/dL Albumin 3.9 g/dL Globulin 2.5 g/dL Bilirubin, Total 0.6 mg/dL ALT (SGPT) 118 U/L AST (SGOT) 47 U/L Alkaline Phosphatase 69 IU/L WBC 4.4 10 3/uL RBC 2.61 10 6/uL HGB 9.6 g/dL HCT 30.5 % MCV 116.9 fL MCH 36.8 pg MCHC 31.5 g/dL RDW 18.2 % Platelet Count 68 10 3/cmm MPV 11.8 fL Neutrophils 2.72 10 3/uL Lymphocytes 1.2 10 3/uL Monocytes 0.4 10 3/uL Eosinophils 0.0 10 3/uL Basophils 0.0 10 3/uL Neutrophil % 62.5 % Lymphocyte % 27.6 % Monocyte % 9.0 % Eosinophil % 0.7 % Basophils % 0.0 % NRBC % 0.5 % Test performed on January 27, 2020 07:10 IgG < 300 mg/dL Test performed on Dec 30, 2019 07:25 ESR (Sed Rate) 60 mm/hr IgA 1333 mg/dL IgM < 25 mg/dL Test performed on Dec 02, 2019 08:10 LDH (Total) 166 U/L Test performed on Oct 07, 2019 08:10 Albumin, SPE 4.0 g/dL Manual Lymphocytes 25.5 % Manual Monocytes 8.3 % Manual Eosinophils 1.6 % Manual Basophils 0.5 % [place] / Lambda Ratio 5.33 Absolute Value Lambda Light Chain 8.0 [place] Light Chain 42.6 [id number] 0.3 g/dL [id number]-4-rdbipjat 0.6 g/dL Gamma Globulin 0.8 g/dL SPE Interpretation Final restricted band (M-spike) migrating in the gamma region Test performed on Oct 06, 2019 00:00 % Iron Saturation 45 % Phosphorous 5.2 mg/dL Iron, Total 88 mcg/dL TIBC 194 mcg/dL Impression: 1. Patient with IgA kappa myeloma, initially diagnosed in September 2011. He has associated end-stage renal disease and anemia. 2. He had disease progression following initial treatment with 3 cycles of Velcade/dexamethasone completed in December 2011. 3. He underwent autologous peripheral stem cell transplant at [facility] in January 2012, complicated by sepsis and acute renal failure requiring hemodialysis. 4. Following disease recurrence he had further treatment with 10 cycles of carfilzomib and dexamethasone beginning in May 2015. 5. Following disease progression he had further treatment with carfilzomib, Revlimid, and dexamethasone beginning in January 2016, and subsequently with carfilzomib, pomalidomide, and dexamethasone. 6. He then had further decline in kidney function with progression to end-stage renal disease, concerning for progressive myeloma. He began treatment with daratumumab, Revlimid, and dexamethasone beginning in October 2016. His treatment was later transitioned to single agent daratumumab due to toxicities with Revlimid and dexamethasone. He is now receiving daratumumab infusions on a monthly schedule. 7. He has been on daily home peritoneal dialysis for the end-stage renal disease, but he is now going to be starting hemodialysis. 8. 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 In April 2018 he had started treatment with Procrit, and thus far he has had a good clinical response. 9. He has associated hypogammaglobulinemia, but he has not been symptomatic with it. His other medical illnesses include: 10. Hypertension. 11. Hyperlipidemia. 12. Type II diabetes with peripheral neuropathy. 13. Benign prostatic hypertrophy. In June 2018 he was found to have a low B12 level, and he did start B12 replacement. He also was found to have a mildly elevated TSH level, and he also started thyroid replacement. His repeat B12 level in August was actually high, and the B12 injections were subsequently stopped. As of October 2018 he opted to be admitted to the skilled nursing, and he then started hemodialysis. At that point his erythropoietin stimulating agent was changed to Mircera. During subsequent follow-up there was further decline in his hemoglobin, eventually stabilizing at 7.9 g. As of November 2018 he restarted Procrit, and he had a very good clinical response. He has continued monthly daratumumab infusions for the myeloma, and he has continued Procrit injections as needed with this target hemoglobin at 10 g. His protein electrophoresis studies had been showing a gradual increase in the M protein and in the kappa free light chain and in the kappa/lambda ratio. He was not overtly symptomatic with it, by with the progressive increase, Dr Pinto did recommend a change in his treatment regimen. We discussed several options and he ultimately decided to try adding back carfilzomib. He began cycle 1 of daratumumab in combination with carfilzomib and dexamethasone on 03/01/2020. He tolerated the first cycle of carfilzomib infusions without acute toxicity. His clinical status at this point appears stable. Plan: 1. Proceed with cycle 2 day 1 and day 2 carfilzomib infusions. Platelets are 95,000 today. 2. Continue dexamethasone 20 mg. 3. 03/28/2020 labs were reviewed in detail and discussed with Mr. Stephens and a copy was given to him. WBC 3.1, hemoglobin 9.9, platelets 95,000, ANC 1700. 4. He was encouraged to continue his activity level as he is tolerating it well. 5. We will plan to recheck his CBC in 1 week. 6. He is due for Procrit today as hemoglobin is 9.9. 7. We will see him back in 1 week with CBC CMP. 8. Mr. Stephens was instructed to contact us in interim should questions or problems arise. Signed By: Ann Sheets-, AOCNP Dustin Pinto MD <<Signature on File>>
== END 2020-03-29 11:17 | disposition home or self-care (01) ==
LOC: ONCMED 11:20
PROVIDERS: PCP Family Medicine; Visit Provider Nurse Practitioner
DX: Z51.12 Encounter for antineoplastic immunotherapy (principal); C90.02 Multiple myeloma in relapse; E11.22 Type 2 diabetes mellitus with diabetic chronic kidney disease; I12.0 Hypertensive chronic kidney disease with stage 5 chronic kidney disease or end stage renal disease; N18.6 End stage renal disease; D63.1 Anemia in chronic kidney disease; E11.42 Type 2 diabetes mellitus with diabetic polyneuropathy; N40.0 Benign prostatic hyperplasia without lower urinary tract symptoms; Z99.2 Dependence on renal dialysis
CPT/HCPCS: 96361; 96367; 96372; 96413; 96415; 96417; 99214; J1100; J1200; J2405; J7030; J7040; J9047; J9145; Q4081

== ENCOUNTER 2020-03-30 08:12 | Outpatient (CLI) | payer MEDICARE, OTHER, SELFPAY ==
[2020-03-30] MEDS: sodium chloride 0.9% 500 ML 999 ML IV (08:25)
[2020-03-30] MEDS: dexamethasone 20 MG in sodium chloride 0.9% 50 ML 187 MG IV (08:42)
[2020-03-30] MEDS: palonosetron 0.25 mg/5 mL SDV IV (08:42)
== END 2020-03-30 08:13 | disposition home or self-care (01) ==
LOC: ONCMED 08:12
PROVIDERS: PCP Family Medicine; Visit Provider Nurse Practitioner
DX: Z51.11 Encounter for antineoplastic chemotherapy (principal); C90.02 Multiple myeloma in relapse; N18.6 End stage renal disease; Z99.2 Dependence on renal dialysis; N40.0 Benign prostatic hyperplasia without lower urinary tract symptoms; E78.5 Hyperlipidemia, unspecified; E11.42 Type 2 diabetes mellitus with diabetic polyneuropathy; I12.0 Hypertensive chronic kidney disease with stage 5 chronic kidney disease or end stage renal disease; D63.1 Anemia in chronic kidney disease
CPT/HCPCS: 96361; 96367; 96375; 96413; J1100; J1200; J2469; J7040; J9047

== ENCOUNTER 2020-04-04 06:55 | Outpatient (CLI) | payer MEDICARE, OTHER, SELFPAY ==
[2020-04-04 10:04] LABS: Basophils % 0.4 %; Eosinophils % 1.4 %; Hematocrit 30.5 % (42.0-52.0); Hemoglobin 9.8 g/dL (11.7-16.6); Lymphocytes % 35.9 %; Mean Corpuscular HGB Conc 32.1 g/dL (30.0-36.0); Mean Corpuscular Hemoglobin 37.4 pg (28.0-34.0); Mean Corpuscular Volume 116.4 fL (80-94); Mean Platelet Volume 10.8 fL (7.4-10.4); Monocytes # 0.4 10^3/uL (0.2-0.9); Monocytes % 12.8 %; Neutrophils # 1.39 10^3/uL (1.8-7.7); Neutrophils % 49.5 %; Nucleated Red Blood Cells % 0 %; Platelet Count 75 10^3/cmm (130-400); Red Blood Count 2.62 10^6/uL (4.1-5.3); Red Cell Distribution Width 18.3 % (12.1-15.1); White Blood Count 2.8 10^3/uL (4.0-10.0)
[2020-04-04 10:21] LABS: Alanine Aminotransferase 73 U/L (0-41); Albumin Level 3.7 g/dL (3.5-5.2); Alkaline Phosphatase 71 IU/L (40-130); Anion Gap 16.3 (5-19); Aspartate Amino Transferase 34 U/L (0-40); Blood Urea Nitrogen 53 mg/dL (8-23); Carbon Dioxide 26 mmol/L (22-29); Chloride 102 mmol/L (98-107); Globulin 2.7 g/dL (1.3-4.6); Glucose 66 mg/dL (65-115); Osmolality Calculated 285 mOsm/kg (285-295); Potassium 5.3 mmol/L (3.5-5.1); Sodium 139 mmol/L (136-145); Total Bilirubin 0.4 mg/dL (0.15-1.2); Total Protein 6.4 g/dL (6.6-8.7)
== END 2020-04-04 06:56 | disposition home or self-care (01) ==
LOC: ONCMED 09:43
PROVIDERS: PCP Family Medicine; Visit Provider Nurse Practitioner
DX: C90.02 Multiple myeloma in relapse (principal); Z51.81 Encounter for therapeutic drug level monitoring; Z79.899 Other long term (current) drug therapy
CPT/HCPCS: 80053; 85025

== ENCOUNTER 2020-04-05 10:15 | Outpatient (CLI) | payer MEDICARE, OTHER, SELFPAY ==
[2020-04-05] MEDS: sodium chloride 0.9% 500 ML 999 ML IV (11:20)
[2020-04-05] MEDS: dexamethasone 20 MG in sodium chloride 0.9% 50 ML 188 MG IV (11:38)
--- NOTE | 2020-04-09 21:23 | ONC FU_ITS ---
[facility] Patient Note Patient: Larry Stephens Unit #: [id number]: 1945 Dictated By: Ann SheetsDate of Visit: Apr 05, 2020 Onc MED Follow-Up/Prog Note Chief Complaint: Multiple myeloma. History of Present Illness: Mr Stephens is a 74 year-old man with relapsed IgA kappa myeloma. He has associated end-stage renal disease and anemia. He had pre-existing hypertension, hyperlipidemia, and type II diabetes. He had developed stage III chronic kidney disease following a colonoscopy prep. He had been seeing Dr. Miguelangel Cha for his nephrology follow-up care, and he was then found to have evidence of IgA kappa monoclonal gammopathy in October 2010. He was initially seen here by Dr. Plasencia in September 2011. At that point his protein electrophoresis showed IgA kappa monoclonal protein quantitating at 1.3 g/dL with 0.2 g/dL of free kappa monoclonal protein. UPEP was reportedly unrevealing. Bone marrow aspiration/biopsy showed 12% plasma cells. 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 There was no evidence of lytic bone involvement. His baseline creatinine was 1.8 mg/dL. He was treated initially with 3 cycles of Velcade/dexamethasone between October and December 2011. He required a dose reduction in the Velcade due to neuropathy. His repeat bone marrow aspiration/biopsy at [facility] on 01/01/2012 showed increase in the plasma cells to 17%. He then continued treatment at [facility] with autologous peripheral stem cell transplant in January 2012, it is assumed with high-dose melphalan, though it is not stated in the available records. The procedure was complicated by sepsis and acute renal failure requiring hemodialysis. He had subsequent relapse of the myeloma. His further treatment included 10 cycles of carfilzomib and dexamethasone beginning in May 2015. It was changed to carfilzomib, Revlimid, and dexamethasone beginning in January 2016 due to disease progression. Following further disease progression, his treatment was transitioned to carfilzomib, pomalidomide, and dexamethasone. As of October 2016, due to progressive kidney disease concerning for progressive myeloma, his treatment was changed to daratumumab, Revlimid, and dexamethasone. The Revlimid and dexamethasone were subsequently omitted due to toxicities, and he has since then continued daratumumab as a single agent. It has been administered on a monthly schedule. During this time his kidney function had progressed to end-stage renal disease, and he is on home peritoneal dialysis. He had been receiving treatment at [facility]. He was seen here in October 2017 because he desired to continue his further treatment locally. Following his initial visit he continued monthly daratumumab infusions with no apparent adverse effects and no obvious progression of the myeloma. His hemoglobin/hematocrit levels remained stable above transfusion thresholds. On 06/25/2018 he was seen in the emergency room with increasing weakness. On evaluation, he was found to have a low B12 level at 168 pg/mL, and his TSH level was found to be elevated at 13.500 mIU/mL. He started B12 injections, and he also started thyroid replacement. As of 07/22/2018 there was further decline in the hemoglobin to 8.6 g, and at that point he did start treatment with Procrit. He had a very good response with his hemoglobin increasing to 12.2 g after 2 weekly injections. As of October 2018 he had [facility], and he then began hemodialysis. At that point his erythropoietin stimulating agent was changed to Mircera. He then became progressively more anemic. As of 12/02/2018 his hemoglobin had stabilized at 7.9 g. He then restarted Procrit on 12/17/2018. During this time, he also had continued his monthly daratumumab infusions. His anemia did improve after restarting the Procrit. During follow-up his clinical status had otherwise remained stable. His protein electrophoresis had continued to show a very small M protein spike. There had been no significant change in his serum free light chains. 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 His medical illnesses, in addition to myeloma and renal failure, include hypertension, hyperlipidemia, type II diabetes with peripheral neuropathy, and benign prostatic hypertrophy. He is a nonsmoker. INTERIM HISTORY: He then continued on his monthly daratumumab infusions. As of 12/09/2019 he received cycle 38 of daratumumab. He had been tolerating the treatment well and his clinical status had been stable. However, he had been showing a very gradual increase in his M protein, in the kappa free light chain, and in the kappa/lambda ratio. I had discussed options for further treatment, and we ultimately decided to just try adding back carfilzomib. He began cycle 1 of daratumumab in combination with carfilzomib and dexamethasone on 03/01/2020. He has tolerated bro 1 carfilzomib infusions without acute toxicity thus far. Mr. Stephens is here today for follow-up. He is due for cycle 2 day 8 and 9 of carfilzomib. He states overall he is doing well. He reinforces that he feels really well. He remains very active ???as much as he can do with limited activity in the long term facility/assisted living due to the pandemic. He denies any new concerns. He is tolerating dialysis well. He has had no recent bleeding from his fistula. He states he is eating good. He denies pain. He denies nausea or vomiting. He denies any diarrhea or constipation. He denies any neuropathy symptoms. His ECOG is 1. Past Medical History: Benign prostatic hypertrophy End stage renal disease on home peritoneal dialysis Hyperlipidemia Hypertension Multiple myeloma Type II diabetes with peripheral neuropathy Past Surgical History: Placement of peritoneal diaysis catheter Placement of portacath venous access device Fistula in left arm in 2019 Prevnar 13 in 2018 Cataract excision in 2016 Right inguinal hernia repair in 2007 Cholecystectomy in 1983 Allergies: Bactrim, Codeine Sulfate, Sulfa Antibiotics, TraMADol HCl, and Verapamil HCl. Medications: Acetaminophen 2 Tablet (of 325 mg) Oral four times a day PRN Acyclovir 1 Tablet (of 400 mg) Oral daily Albuterol Sulfate 1 Vial(s) (of (2.5 mg/3ml) 0.083%) Nebulization solution Inhalation t.i.d. PRN Albuterol Sulfate 1 Inhalation (of 108 (90 base) mcg/act) Aerosol Powder, Breath Activated Inhalation q 4 hours Allopurinol 1 Tablet (of 100 mg) Oral daily ALPRAZolam 1 Tablet (of 0.25 mg) Oral at bedtime amLODIPine Besylate 1 Tablet (of 2.5 mg) Oral daily Bisacodyl EC 2 Tablet (of 5 mg) Tablet, enteric coated Oral daily PRN Calcium Acetate 1 Capsule (of 667 mg) Oral t.i.d. Cholecalciferol Tablet Oral Cipro 1 Tablet (of 500 mg) Oral b.i.d. Fluconazole 1 Tablet (of 100 mg) Oral daily Furosemide 1 Tablet (of 80 mg) Oral daily Gentamicin Sulfate 1 (0.1 %) Cream Topical at bedtime Levothyroxine Sodium 1 Tablet (of 50 mcg) Oral daily Loperamide HCl 1 - 2 Tablet (of 2 mg) Oral PRN Lovastatin 1 (40 mg) Tablet Oral at bedtime Mucinex 1 Tablet (of 600 mg) Tablet SR 12 HR Oral b.i.d. PRN Prochlorperazine Maleate 1 Tablet (of 10 mg) Oral q 6 hours PRN Requip 1 Tablet (of 0.5 mg) Oral b.i.d. Tamsulosin HCl 1 Tablet (of 0.4 mg) Capsule Oral b.i.d. Family History: Mr. Stephens's mother at age 82: Breast Cancer at age 70. Mr. Stephens's father at age 40. Mr. Stephens's maternal grandmother at age 80: cancer history consists of Breast cancer at age 80 (cause of ). Father at age 40, cause unknown to the patient. Mother of breast cancer at age 82. His maternal grandmother also had breast cancer. Social History: Mr. Stephens is and he is retired. Mr. Stephens has never smoked. He has no history of drinking. He is a nonsmoker. He does not drink alcohol. Review Of Symptoms: Constitutional Denies fevers, chills, night sweats, excessive fatigue or weight loss. Allergic/Immunologic No reactions. Eyes Denies significant visual changes. No diplopia. No amaurosis. ENMT Denies changes in hearing, sore throat, mouth sores, difficulty or changes in swallowing ability, and/or sinus drainage. Endocrine No diabetes, thyroid disease or hormone replacement. Denies hot flashes or night sweats. Hematologic/Lymphatic Denies easy bruising or bleeding. The patient denies any tender or palpable lymph nodes. Respiratory Denies dyspnea on exertion, chest pain, cough or hemoptysis. Denies orthopnea. Cardiovascular Denies anginal chest pain, palpitations or orthopnea. Gastrointestinal Denies nausea, vomiting, GI bleeding, or constipation. Denies change in bowel habits and/or stool color, no heartburn or early satiety. Genitourinary (M) Denies hematuria, dysuria, increased frequency, urgency, hesitancy or incontinence. Musculoskeletal Denies joint pain, swelling or redness. No decreased range of motion. Integumentary Denies chronic rashes, inflammation, ulcerations or skin changes. Neurologic Denies headache, blurred vision, and no areas of focal weakness or numbness. Normal gait. No sensory problems. Psychiatric Denies worsening insomnia-using Benadryl and Melatonin prn. Denies depression, brielle or mood swings. Vital Signs: Performed on Apr 05, 2020 10:33 Height - 69.00 in Weight - 145.6 lbs (LOW) BSA - 1.80 sq.m BMI - 21.50 Temperature - 97.8 F (LOW) Pulse - 130 /min (HIGH) Respiration - 18 /min BP - 98/59 mm(hg) O2 Sat - 97 % Pain - 0,1 - No physically strenuous activity, but ambulatory and able to carry out light or sedentary work (e.g. office work, light house work). (ECOG) Physical Examination: Constitutional Alert, oriented, no acute distress. Skin pink, warm and dry. Head Normocephalic; atraumatic. Eyes Conjunctivae and sclerae are clear and without icterus. Pupils are reactive and equal. Neck Supple without masses or thyromegaly. No jugular venous distension. Hematologic/Lymphatic No petechiae or purpura. Some bruising on hands-chronic Respiratory Lungs are clear to auscultation without rhonchi or wheezing. Cardiovascular Regular rate and rhythm of heart without murmurs,clicks, gallops or rubs. Abdomen Non-tender, non-distended, no masses, Back/Spine Non-tender to palpation. Extremities No visible deformities, no cyanosis, clubbing or edema. Left arm fistula is unremarkable-no active bleeding and no significant bruising. Musculoskeletal No tenderness or swelling, normal range of motion without obvious weakness. Integumentary No rashes or lesions. Neurologic No sensory or motor deficits, normal cerebellar function, normal gait. Psychiatric Alert and oriented times three. Coherent speech. Verbalizes understanding of our discussions today. Laboratory:Test performed on Mar 14, 2020 06:40 Sodium 144 mmol/L Potassium 5.9 mmol/L Chloride 102 mmol/L CO2 29 mmol/L Anion Gap 18.9 BUN 49 mg/dL Creatinine 5.4 mg/dL Cr Clearance (Est) 11.4300 mL/min Glucose 56 mg/dL Calcium 8.9 mg/dL Protein, Total 6.4 g/dL Albumin 3.9 g/dL Globulin 2.5 g/dL Bilirubin, Total 0.6 mg/dL ALT (SGPT) 118 U/L AST (SGOT) 47 U/L Alkaline Phosphatase 69 IU/L WBC 4.4 10 3/uL RBC 2.61 10 6/uL HGB 9.6 g/dL HCT 30.5 % MCV 116.9 fL MCH 36.8 pg MCHC 31.5 g/dL RDW 18.2 % Platelet Count 68 10 3/cmm MPV 11.8 fL Neutrophils 2.72 10 3/uL Lymphocytes 1.2 10 3/uL Monocytes 0.4 10 3/uL Eosinophils 0.0 10 3/uL Basophils 0.0 10 3/uL Neutrophil % 62.5 % Lymphocyte % 27.6 % Monocyte % 9.0 % Eosinophil % 0.7 % Basophils % 0.0 % NRBC % 0.5 % Test performed on January 27, 2020 07:10 IgG < 300 mg/dL Test performed on Dec 30, 2019 07:25 ESR (Sed Rate) 60 mm/hr IgA 1333 mg/dL IgM < 25 mg/dL Test performed on Dec 02, 2019 08:10 LDH (Total) 166 U/L Impression: 1. Patient with IgA kappa myeloma, initially diagnosed in September 2011. He has associated end-stage renal disease and anemia. 2. He had disease progression following initial treatment with 3 cycles of Velcade/dexamethasone completed in December 2011. 3. He underwent autologous peripheral stem cell transplant at [facility] in January 2012, complicated by sepsis and acute renal failure requiring hemodialysis. 4. Following disease recurrence he had further treatment with 10 cycles of carfilzomib and dexamethasone beginning in May 2015. 5. Following disease progression he had further treatment with carfilzomib, Revlimid, and dexamethasone beginning in January 2016, and subsequently with carfilzomib, pomalidomide, and dexamethasone. 6. He then had further decline in kidney function with progression to end-stage renal disease, concerning for progressive myeloma. He began treatment with daratumumab, Revlimid, and dexamethasone beginning in October 2016. His treatment was later transitioned to single agent daratumumab due to toxicities with Revlimid and dexamethasone. He is now receiving daratumumab infusions on a monthly schedule. 7. He has been on daily home peritoneal dialysis for the end-stage renal disease, but he is now going to be starting hemodialysis. 8. 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 In April 2018 he had started treatment with Procrit, and thus far he has had a good clinical response. 9. He has associated hypogammaglobulinemia, but he has not been symptomatic with it. His other medical illnesses include: 10. Hypertension. 11. Hyperlipidemia. 12. Type II diabetes with peripheral neuropathy. 13. Benign prostatic hypertrophy. In June 2018 he was found to have a low B12 level, and he did start B12 replacement. He also was found to have a mildly elevated TSH level, and he also started thyroid replacement. His repeat B12 level in August was actually high, and the B12 injections were subsequently stopped. As of October 2018 he [facility], and he then started hemodialysis. At that point his erythropoietin stimulating agent was changed to Mircera. During subsequent follow-up there was further decline in his hemoglobin, eventually stabilizing at 7.9 g. As of November 2018 he restarted Procrit, and he had a very good clinical response. He has continued monthly daratumumab infusions for the myeloma, and he has continued Procrit injections as needed with this target hemoglobin at 10 g. His protein electrophoresis studies had been showing a gradual increase in the M protein and in the kappa free light chain and in the kappa/lambda ratio. He was not overtly symptomatic with it, by with the progressive increase, Dr Pinto did recommend a change in his treatment regimen. We discussed several options and he ultimately decided to try adding back carfilzomib. He began cycle 1 of daratumumab in combination with carfilzomib and dexamethasone on 03/01/2020. He tolerated the first cycle of carfilzomib infusions without acute toxicity. His clinical status at this point appears stable. Plan: 1. Proceed with cycle 2 day 8 and day 9 carfilzomib infusions. Platelets were 75,000 yesterday. 2. Continue dexamethasone 20 mg. 3. 04/04/2020 labs were reviewed in detail and discussed with Mr. Stephens and a copy was given to him. WBC 2.8, hemoglobin 9.8, platelets 75,000, ANC 1400. 4. He was encouraged to continue his activity level as he is tolerating it well. His SPEP from 02/29/2020 reported an abnormal protein of 1.4 a second abnormal protein is 0.2 his gammaglobulin was reported at 1.9. On 03/28/2020 he only had 1 abnormal protein reported and it was reported at 1.3 which was improved. His gammaglobulin was 1.5. 5. We will plan to recheck his CBC in 1 week. 6. He is due for Procrit today as hemoglobin is 9.8. 7. We will see him back in 1 week with CBC CMP. 8. He states he is using Benadryl and melatonin to help him sleep and this is working well for him. Since resuming the steroids he had had a little trouble sleeping but states this is taking care of it for him. 9. Mr. Stephens was instructed to contact us in interim should questions or problems arise. Signed By: Ann Sheets-, [facility] Dustin Pinto MD <<Signature on File>>
== END 2020-04-05 10:16 | disposition home or self-care (01) ==
LOC: ONCMED 10:18
PROVIDERS: PCP Family Medicine; Visit Provider Nurse Practitioner
DX: Z51.12 Encounter for antineoplastic immunotherapy (principal); C90.02 Multiple myeloma in relapse; N18.6 End stage renal disease; Z99.2 Dependence on renal dialysis; N40.0 Benign prostatic hyperplasia without lower urinary tract symptoms; E78.5 Hyperlipidemia, unspecified; I12.0 Hypertensive chronic kidney disease with stage 5 chronic kidney disease or end stage renal disease; E11.42 Type 2 diabetes mellitus with diabetic polyneuropathy; D63.1 Anemia in chronic kidney disease
CPT/HCPCS: 96361; 96367; 96372; 96413; 99214; J1100; J1200; J2405; J7040; J9047; Q4081

== ENCOUNTER 2020-04-06 06:12 | Outpatient (CLI) | payer MEDICARE, OTHER, SELFPAY ==
[2020-04-06] MEDS: dexamethasone 20 MG in sodium chloride 0.9% 50 ML 187 MG IV (09:45)
[2020-04-06] MEDS: sodium chloride 0.9% 500 ML IV (09:45)
[2020-04-06] MEDS: palonosetron 0.25 mg/5 mL SDV IV (10:46)
== END 2020-04-06 06:13 | disposition home or self-care (01) ==
PROVIDERS: PCP Family Medicine; Visit Provider Nurse Practitioner
DX: Z51.11 Encounter for antineoplastic chemotherapy (principal); C90.02 Multiple myeloma in relapse; N18.6 End stage renal disease
CPT/HCPCS: 96360; 96367; 96413; J1100; J1200; J2469; J7040; J9047

== ENCOUNTER 2020-04-11 08:10 | Outpatient (CLI) | payer MEDICARE, OTHER, SELFPAY ==
[2020-04-11 08:40] LABS: Eosinophils % 0.8 %; Hematocrit 33.5 % (42.0-52.0); Hemoglobin 10.8 g/dL (11.7-16.6); Lymphocytes # 0.9 10^3/uL (0.8-4.8); Lymphocytes % 23.6 %; Mean Corpuscular HGB Conc 32.2 g/dL (30.0-36.0); Mean Corpuscular Hemoglobin 38.4 pg (28.0-34.0); Mean Corpuscular Volume 119.2 fL (80-94); Mean Platelet Volume 10.7 fL (7.4-10.4); Monocytes # 0.4 10^3/uL (0.2-0.9); Monocytes % 11.4 %; Neutrophils # 2.46 10^3/uL (1.8-7.7); Neutrophils % 63.9 %; Nucleated Red Blood Cells % 0 %; Platelet Count 74 10^3/cmm (130-400); Red Blood Count 2.81 10^6/uL (4.1-5.3); Red Cell Distribution Width 19.1 % (12.1-15.1); White Blood Count 3.9 10^3/uL (4.0-10.0)
[2020-04-11 09:08] LABS: Alanine Aminotransferase 90 U/L (0-41); Albumin Level 3.7 g/dL (3.5-5.2); Alkaline Phosphatase 70 IU/L (40-130); Anion Gap 17.4 (5-19); Aspartate Amino Transferase 46 U/L (0-40); Blood Urea Nitrogen 44 mg/dL (8-23); Calcium 8.2 mg/dL (8.5-10.5); Carbon Dioxide 27 mmol/L (22-29); Chloride 102 mmol/L (98-107); Globulin 3.3 g/dL (1.3-4.6); Glucose 82 mg/dL (65-115); Osmolality Calculated 291 mOsm/kg (285-295); Potassium 4.4 mmol/L (3.5-5.1); Sodium 142 mmol/L (136-145); Total Bilirubin 0.7 mg/dL (0.15-1.2)
== END 2020-04-11 08:11 | disposition home or self-care (01) ==
LOC: ONCMED 08:13
PROVIDERS: PCP Family Medicine; Visit Provider Nurse Practitioner
DX: C90.02 Multiple myeloma in relapse (principal); N18.6 End stage renal disease; Z99.2 Dependence on renal dialysis; N40.0 Benign prostatic hyperplasia without lower urinary tract symptoms; I12.0 Hypertensive chronic kidney disease with stage 5 chronic kidney disease or end stage renal disease; E78.5 Hyperlipidemia, unspecified; E11.42 Type 2 diabetes mellitus with diabetic polyneuropathy; D63.1 Anemia in chronic kidney disease
CPT/HCPCS: 36415; 80053; 85025

== ENCOUNTER 2020-04-12 06:13 | Outpatient (CLI) | payer MEDICARE, OTHER, SELFPAY ==
--- NOTE | 2020-04-12 10:56 | ONC FU_ITS ---
[facility] Patient Note Patient: Larry Stephens Unit #: [id number]: 1945 Dictated By: Ann SheetsDate of Visit: Apr 12, 2020 Onc MED Follow-Up/Prog Note Chief Complaint: Multiple myeloma. History of Present Illness: Mr Stephens is a 74 year-old man with relapsed IgA kappa myeloma. He has associated end-stage renal disease and anemia. He had pre-existing hypertension, hyperlipidemia, and type II diabetes. He had developed stage III chronic kidney disease following a colonoscopy prep. He had been seeing Dr. Miguelangel Cha for his nephrology follow-up care, and he was then found to have evidence of IgA kappa monoclonal gammopathy in October 2010. He was initially seen here by Dr. Plasencia in September 2011. At that point his protein electrophoresis showed IgA kappa monoclonal protein quantitating at 1.3 g/dL with 0.2 g/dL of free kappa monoclonal protein. UPEP was reportedly unrevealing. Bone marrow aspiration/biopsy showed 12% plasma cells. 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 There was no evidence of lytic bone involvement. His baseline creatinine was 1.8 mg/dL. He was treated initially with 3 cycles of Velcade/dexamethasone between October and December 2011. He required a dose reduction in the Velcade due to neuropathy. His repeat bone marrow aspiration/biopsy at [facility] on 01/01/2012 showed increase in the plasma cells to 17%. He then continued treatment at [facility] with autologous peripheral stem cell transplant in January 2012, it is assumed with high-dose melphalan, though it is not stated in the available records. The procedure was complicated by sepsis and acute renal failure requiring hemodialysis. He had subsequent relapse of the myeloma. His further treatment included 10 cycles of carfilzomib and dexamethasone beginning in May 2015. It was changed to carfilzomib, Revlimid, and dexamethasone beginning in January 2016 due to disease progression. Following further disease progression, his treatment was transitioned to carfilzomib, pomalidomide, and dexamethasone. As of October 2016, due to progressive kidney disease concerning for progressive myeloma, his treatment was changed to daratumumab, Revlimid, and dexamethasone. The Revlimid and dexamethasone were subsequently omitted due to toxicities, and he has since then continued daratumumab as a single agent. It has been administered on a monthly schedule. During this time his kidney function had progressed to end-stage renal disease, and he is on home peritoneal dialysis. He had been receiving treatment at [facility]. He was seen here in October 2017 because he desired to continue his further treatment locally. Following his initial visit he continued monthly daratumumab infusions with no apparent adverse effects and no obvious progression of the myeloma. His hemoglobin/hematocrit levels remained stable above transfusion thresholds. On 06/25/2018 he was seen in the emergency room with increasing weakness. On evaluation, he was found to have a low B12 level at 168 pg/mL, and his TSH level was found to be elevated at 13.500 mIU/mL. He started B12 injections, and he also started thyroid replacement. As of 07/22/2018 there was further decline in the hemoglobin to 8.6 g, and at that point he did start treatment with Procrit. He had a very good response with his hemoglobin increasing to 12.2 g after 2 weekly injections. As of October 2018 he had opted to be admitted to the correction, and he then began hemodialysis. At that point his erythropoietin stimulating agent was changed to Mircera. He then became progressively more anemic. As of 12/02/2018 his hemoglobin had stabilized at 7.9 g. He then restarted Procrit on 12/17/2018. During this time, he also had continued his monthly daratumumab infusions. His anemia did improve after restarting the Procrit. During follow-up his clinical status had otherwise remained stable. His protein electrophoresis had continued to show a very small M protein spike. There had been no significant change in his serum free light chains. 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 His medical illnesses, in addition to myeloma and renal failure, include hypertension, hyperlipidemia, type II diabetes with peripheral neuropathy, and benign prostatic hypertrophy. He is a nonsmoker. INTERIM HISTORY: He then continued on his monthly daratumumab infusions. As of 12/09/2019 he received cycle 38 of daratumumab. He had been tolerating the treatment well and his clinical status had been stable. However, he had been showing a very gradual increase in his M protein, in the kappa free light chain, and in the kappa/lambda ratio. I had discussed options for further treatment, and we ultimately decided to just try adding back carfilzomib. He began cycle 1 of daratumumab in combination with carfilzomib and dexamethasone on 03/01/2020. He has tolerated bro 1 carfilzomib infusions without acute toxicity thus far. Mr. Stephens is here today for follow-up. He is due for cycle 2 day 15 and 16 of carfilzomib. He states overall he continues to do well. He reinforces that he feels really well. He remains very active ???as much as he can do with limited activity in the residential facility/assisted living due to the pandemic. He denies any new concerns. He is tolerating dialysis well. He states he did have some bleeding fom his fistual earleir this week but it was my fault because I did not put enought pressure on it . He states he is eating good. He denies pain. He denies nausea or vomiting. He denies any diarrhea or constipation. He denies any neuropathy symptoms. His ECOG is 1. Past Medical History: Benign prostatic hypertrophy End stage renal disease on home peritoneal dialysis Hyperlipidemia Hypertension Multiple myeloma Type II diabetes with peripheral neuropathy Past Surgical History: Placement of peritoneal diaysis catheter Placement of portacath venous access device Fistula in left arm in 2019 Prevnar 13 in 2018 Cataract excision in 2016 Right inguinal hernia repair in 2007 Cholecystectomy in 1983 Allergies: Bactrim, Codeine Sulfate, Sulfa Antibiotics, TraMADol HCl, and Verapamil HCl. Medications: Acetaminophen 2 Tablet (of 325 mg) Oral four times a day PRN Acyclovir 1 Tablet (of 400 mg) Oral daily Albuterol Sulfate 1 Vial(s) (of (2.5 mg/3ml) 0.083%) Nebulization solution Inhalation t.i.d. PRN Albuterol Sulfate 1 Inhalation (of 108 (90 base) mcg/act) Aerosol Powder, Breath Activated Inhalation q 4 hours Allopurinol 1 Tablet (of 100 mg) Oral daily ALPRAZolam 1 Tablet (of 0.25 mg) Oral at bedtime amLODIPine Besylate 1 Tablet (of 2.5 mg) Oral daily Bisacodyl EC 2 Tablet (of 5 mg) Tablet, enteric coated Oral daily PRN Calcium Acetate 1 Capsule (of 667 mg) Oral t.i.d. Cholecalciferol Tablet Oral Cipro 1 Tablet (of 500 mg) Oral b.i.d. Fluconazole 1 Tablet (of 100 mg) Oral daily Furosemide 1 Tablet (of 80 mg) Oral daily Gentamicin Sulfate 1 (0.1 %) Cream Topical at bedtime Levothyroxine Sodium 1 Tablet (of 50 mcg) Oral daily Loperamide HCl 1 - 2 Tablet (of 2 mg) Oral PRN Lovastatin 1 (40 mg) Tablet Oral at bedtime Mucinex 1 Tablet (of 600 mg) Tablet SR 12 HR Oral b.i.d. PRN Prochlorperazine Maleate 1 Tablet (of 10 mg) Oral q 6 hours PRN Requip 1 Tablet (of 0.5 mg) Oral b.i.d. Tamsulosin HCl 1 Tablet (of 0.4 mg) Capsule Oral b.i.d. Family History: Mr. Stephens's mother at age 82: Breast Cancer at age 70. Mr. Stephens's father at age 40. Mr. Stephens's maternal grandmother at age 80: cancer history consists of Breast cancer at age 80 (cause of ). Father at age 40, cause unknown to the patient. Mother of breast cancer at age 82. His maternal grandmother also had breast cancer. Social History: Mr. Stephens is and he is retired. Mr. Stephens has never smoked. He has no history of drinking. He is a nonsmoker. He does not drink alcohol. Review Of Symptoms: Constitutional Denies fevers, chills, night sweats, excessive fatigue or weight loss. Allergic/Immunologic No reactions. Eyes Denies significant visual changes. No diplopia. No amaurosis. ENMT Denies changes in hearing, sore throat, mouth sores, difficulty or changes in swallowing ability, and/or sinus drainage. Endocrine No diabetes, thyroid disease or hormone replacement. Denies hot flashes or night sweats. Hematologic/Lymphatic Denies easy bruising or bleeding. The patient denies any tender or palpable lymph nodes. Respiratory Denies dyspnea on exertion, chest pain, cough or hemoptysis. Denies orthopnea. Cardiovascular Denies anginal chest pain, palpitations or orthopnea. Gastrointestinal Denies nausea, vomiting, GI bleeding, or constipation. Denies change in bowel habits and/or stool color, no heartburn or early satiety. Genitourinary (M) Denies hematuria, dysuria, increased frequency, urgency, hesitancy or incontinence. Musculoskeletal Denies joint pain, swelling or redness. No decreased range of motion. Integumentary Denies chronic rashes, inflammation, ulcerations or skin changes. Neurologic Denies headache, blurred vision, and no areas of focal weakness or numbness. Normal gait. No sensory problems. Psychiatric Denies worsening insomnia-using Benadryl and Melatonin prn. Denies depression, brielle or mood swings. Vital Signs: Performed on Apr 12, 2020 10:35 Height - 69.00 in Weight - 146.4 lbs (HIGH) BSA - 1.81 sq.m BMI - 21.62 Temperature - 97.4 F (LOW) Pulse - 82 /min Respiration - 18 /min BP - 126/63 mm(hg) O2 Sat - 100 % Pain - 0,1 - No physically strenuous activity, but ambulatory and able to carry out light or sedentary work (e.g. office work, light house work). (ECOG) Physical Examination: Constitutional Alert, oriented, no acute distress. Skin pink, warm and dry. Head Normocephalic; atraumatic. Eyes Conjunctivae and sclerae are clear and without icterus. Pupils are reactive and equal. Neck Supple without masses or thyromegaly. No jugular venous distension. Hematologic/Lymphatic No petechiae or purpura. Some bruising on hands-chronic Respiratory Lungs are clear to auscultation without rhonchi or wheezing. Cardiovascular Regular rate and rhythm of heart without murmurs,clicks, gallops or rubs. Abdomen Non-tender, non-distended, no masses, Back/Spine Non-tender to palpation. Extremities No visible deformities, no cyanosis, clubbing or edema. Left arm fistula is unremarkable-no active bleeding and no significant bruising. Musculoskeletal No tenderness or swelling, normal range of motion without obvious weakness. Integumentary No rashes or lesions. Neurologic No sensory or motor deficits, normal cerebellar function, normal gait. Psychiatric Alert and oriented times three. Coherent speech. Verbalizes understanding of our discussions today. Laboratory:Test performed on Mar 14, 2020 06:40 Sodium 144 mmol/L Potassium 5.9 mmol/L Chloride 102 mmol/L CO2 29 mmol/L Anion Gap 18.9 BUN 49 mg/dL Creatinine 5.4 mg/dL Cr Clearance (Est) 11.4300 mL/min Glucose 56 mg/dL Calcium 8.9 mg/dL Protein, Total 6.4 g/dL Albumin 3.9 g/dL Globulin 2.5 g/dL Bilirubin, Total 0.6 mg/dL ALT (SGPT) 118 U/L AST (SGOT) 47 U/L Alkaline Phosphatase 69 IU/L WBC 4.4 10 3/uL RBC 2.61 10 6/uL HGB 9.6 g/dL HCT 30.5 % MCV 116.9 fL MCH 36.8 pg MCHC 31.5 g/dL RDW 18.2 % Platelet Count 68 10 3/cmm MPV 11.8 fL Neutrophils 2.72 10 3/uL Lymphocytes 1.2 10 3/uL Monocytes 0.4 10 3/uL Eosinophils 0.0 10 3/uL Basophils 0.0 10 3/uL Neutrophil % 62.5 % Lymphocyte % 27.6 % Monocyte % 9.0 % Eosinophil % 0.7 % Basophils % 0.0 % NRBC % 0.5 % Test performed on January 27, 2020 07:10 IgG < 300 mg/dL Test performed on Dec 30, 2019 07:25 ESR (Sed Rate) 60 mm/hr IgA 1333 mg/dL IgM < 25 mg/dL Test performed on Dec 02, 2019 08:10 LDH (Total) 166 U/L Impression: 1. Patient with IgA kappa myeloma, initially diagnosed in September 2011. He has associated end-stage renal disease and anemia. 2. He had disease progression following initial treatment with 3 cycles of Velcade/dexamethasone completed in December 2011. 3. He underwent autologous peripheral stem cell transplant at [facility] in January 2012, complicated by sepsis and acute renal failure requiring hemodialysis. 4. Following disease recurrence he had further treatment with 10 cycles of carfilzomib and dexamethasone beginning in May 2015. 5. Following disease progression he had further treatment with carfilzomib, Revlimid, and dexamethasone beginning in January 2016, and subsequently with carfilzomib, pomalidomide, and dexamethasone. 6. He then had further decline in kidney function with progression to end-stage renal disease, concerning for progressive myeloma. He began treatment with daratumumab, Revlimid, and dexamethasone beginning in October 2016. His treatment was later transitioned to single agent daratumumab due to toxicities with Revlimid and dexamethasone. He is now receiving daratumumab infusions on a monthly schedule. 7. He has been on daily home peritoneal dialysis for the end-stage renal disease, but he is now going to be starting hemodialysis. 8. 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 In April 2018 he had started treatment with Procrit, and thus far he has had a good clinical response. 9. He has associated hypogammaglobulinemia, but he has not been symptomatic with it. His other medical illnesses include: 10. Hypertension. 11. Hyperlipidemia. 12. Type II diabetes with peripheral neuropathy. 13. Benign prostatic hypertrophy. In June 2018 he was found to have a low B12 level, and he did start B12 replacement. He also was found to have a mildly elevated TSH level, and he also started thyroid replacement. His repeat B12 level in August was actually high, and the B12 injections were subsequently stopped. As of October 2018 he opted to be admitted to the correction, and he then started hemodialysis. At that point his erythropoietin stimulating agent was changed to Mircera. During subsequent follow-up there was further decline in his hemoglobin, eventually stabilizing at 7.9 g. As of November 2018 he restarted Procrit, and he had a very good clinical response. He has continued monthly daratumumab infusions for the myeloma, and he has continued Procrit injections as needed with this target hemoglobin at 10 g. His protein electrophoresis studies had been showing a gradual increase in the M protein and in the kappa free light chain and in the kappa/lambda ratio. He was not overtly symptomatic with it, by with the progressive increase, Dr Pinto did recommend a change in his treatment regimen. We discussed several options and he ultimately decided to try adding back carfilzomib. He began cycle 1 of daratumumab in combination with carfilzomib and dexamethasone on 03/01/2020. He tolerated the first cycle of carfilzomib infusions without acute toxicity. His clinical status at this point appears stable. He will complete cycle 2 day 16 tomorrow. Plan: 1. Proceed with cycle 2 day 15 and day 16 carfilzomib infusions. Platelets were 74,000 yesterday. 2. Continue dexamethasone 20 mg weekly. 3. 04/11/2020 labs were reviewed in detail and discussed with Mr. Stephens and a copy was given to him. WBC 3.9, hemoglobin 10.8, platelets 74,000, ANC 2500. 4. He was encouraged to continue his activity level as he is tolerating it well. His SPEP from 02/29/2020 reported an abnormal protein of 1.4 a second abnormal protein is 0.2 his gammaglobulin was reported at 1.9. On 03/28/2020 he only had 1 abnormal protein reported and it was reported at 1.3 which was improved. His gammaglobulin was 1.5. 5. He will not have Procrit today as hemoglobin is 10.8. 6. We will see him back in 2 week with CBC CMP, SPEP with MEGHAN, QUIGS and [place] Free Light Chain Assay. 7. Mr. Stephens was instructed to contact us in interim should questions or problems arise. Signed By: Ann Sheets-, AOCNP Dustin Pinto MD <<Signature on File>>
[2020-04-12] MEDS: sodium chloride 0.9% 500 ML 999 ML IV (11:35)
[2020-04-12] MEDS: dexamethasone 20 MG in sodium chloride 0.9% 50 ML 187 MG IV (12:07)
== END 2020-04-12 06:14 | disposition home or self-care (01) ==
PROVIDERS: PCP Family Medicine; Visit Provider Nurse Practitioner
DX: Z51.11 Encounter for antineoplastic chemotherapy (principal); C90.02 Multiple myeloma in relapse; N18.6 End stage renal disease; Z99.2 Dependence on renal dialysis; N40.0 Benign prostatic hyperplasia without lower urinary tract symptoms; E78.5 Hyperlipidemia, unspecified; I12.0 Hypertensive chronic kidney disease with stage 5 chronic kidney disease or end stage renal disease; E11.42 Type 2 diabetes mellitus with diabetic polyneuropathy; D63.1 Anemia in chronic kidney disease
CPT/HCPCS: 96361; 96367; 96413; 99214; J1100; J1200; J2405; J7040; J9047

== ENCOUNTER 2020-04-13 06:21 | Outpatient (CLI) | payer MEDICARE, OTHER, SELFPAY ==
[2020-04-13] MEDS: sodium chloride 0.9% 500 ML 999 ML IV (08:20)
[2020-04-13] MEDS: dexamethasone 20 MG in sodium chloride 0.9% 50 ML 187 MG IV (08:40)
[2020-04-13] MEDS: palonosetron 0.25 mg/5 mL SDV IV (08:40)
== END 2020-04-13 06:22 | disposition home or self-care (01) ==
PROVIDERS: PCP Family Medicine; Visit Provider Nurse Practitioner
DX: Z51.11 Encounter for antineoplastic chemotherapy (principal); C90.02 Multiple myeloma in relapse
CPT/HCPCS: 96361; 96367; 96413; J1100; J1200; J2469; J7040; J9047

== ENCOUNTER 2020-04-25 07:17 | Outpatient (CLI) | payer MEDICARE, OTHER, SELFPAY ==
[2020-04-25 09:25] LABS: Basophils % 0.3 %; Eosinophils % 1.1 %; Hemoglobin 9.2 g/dL (11.7-16.6); Lymphocytes # 1.1 10^3/uL (0.8-4.8); Lymphocytes % 30.8 %; Mean Corpuscular HGB Conc 31.7 g/dL (30.0-36.0); Mean Corpuscular Hemoglobin 37.2 pg (28.0-34.0); Mean Corpuscular Volume 117.4 fL (80-94); Mean Platelet Volume 11.8 fL (7.4-10.4); Monocytes # 0.4 10^3/uL (0.2-0.9); Monocytes % 11.1 %; Neutrophils # 2.03 10^3/uL (1.8-7.7); Neutrophils % 56.4 %; Nucleated Red Blood Cells % 0 %; Platelet Count 87 10^3/cmm (130-400); Red Blood Count 2.47 10^6/uL (4.1-5.3); Red Cell Distribution Width 17.2 % (12.1-15.1); White Blood Count 3.6 10^3/uL (4.0-10.0)
[2020-04-25 09:39] LABS: Alanine Aminotransferase 103 U/L (0-41); Albumin Level 3.7 g/dL (3.5-5.2); Alkaline Phosphatase 89 IU/L (40-130); Anion Gap 18.9 (5-19); Aspartate Amino Transferase 66 U/L (0-40); Blood Urea Nitrogen 43 mg/dL (8-23); Calcium 8.8 mg/dL (8.5-10.5); Carbon Dioxide 30 mmol/L (22-29); Chloride 100 mmol/L (98-107); Globulin 3.1 g/dL (1.3-4.6); Glucose 69 mg/dL (65-115); Osmolality Calculated 292 mOsm/kg (285-295); Potassium 5.9 mmol/L (3.5-5.1); Sodium 143 mmol/L (136-145); Total Bilirubin 0.6 mg/dL (0.15-1.2); Total Protein 6.8 g/dL (6.6-8.7)
[2020-04-25 09:54] LABS: Immunoglobulin IGA 1669 mg/dL (70-400)
[2020-04-25 09:55] LABS: Immunoglobulin IGG 184 mg/dL (700-1600); Immunoglobulin IGM 7 mg/dL (40-230)
[2020-04-26 08:32] LABS: PROTEIN, TOTAL 6.6 g/dL (6.1-8.1)
[2020-04-26 11:53] LABS: ABNORMAL PROTEIN BAND 1 1.3 g/dL (NONE DETECTED); ALBUMIN 3.6 g/dL (3.8-4.8); ALPHA 1 GLOBULIN 0.3 g/dL (0.2-0.3); ALPHA 2 GLOBULIN 0.6 g/dL (0.5-0.9); BETA 1 GLOBULIN 0.3 g/dL (0.4-0.6); BETA 2 GLOBULIN 0.2 g/dL (0.2-0.5); GAMMA GLOBULIN 1.6 g/dL (0.8-1.7)
[2020-04-26 12:52] LABS: KAPPA LIGHT CHAIN, FREE, SERUM 45.8 mg/L (3.3-19.4); KAPPA/LAMBDA LIGHT CHAINS FREE 25.44 (0.26-1.65); LAMBDA LIGHT CHAIN, FREE, SERU 1.8 mg/L (5.7-26.3)
== END 2020-04-25 07:18 | disposition home or self-care (01) ==
LOC: ONCMED 09:29
PROVIDERS: PCP Family Medicine; Visit Provider Nurse Practitioner
DX: C90.02 Multiple myeloma in relapse (principal); Z51.81 Encounter for therapeutic drug level monitoring; Z79.899 Other long term (current) drug therapy
CPT/HCPCS: 36415; 80053; 82784; 83883; 84155; 84165; 85025

== ENCOUNTER 2020-04-26 06:17 | Outpatient (CLI) | payer MEDICARE, OTHER, SELFPAY ==
[2020-04-26] MEDS: sodium chloride 0.9% 500 ML 999 ML IV (11:20)
[2020-04-26] MEDS: acetaminophen 325 mg Tablet 650 MG PO (11:26)
[2020-04-26] MEDS: dexamethasone 20 MG in sodium chloride 0.9% 50 ML 188 MG IV (12:18)
--- NOTE | 2020-04-30 10:21 | ONC FU_ITS ---
Dr. Pinto Patient Follow-Up Note Patient: Larry Stephens Unit #: [id number]: 1945 Dicatated By: Dustin Pinto M.D.Date of Visit:Apr 26, 2020 Onc Med Follow-up/Prog Note Chief Complaint: Multiple myeloma. History of Present Illness: This is a 74 year-old man with relapsed IgA kappa myeloma. He has associated end-stage renal disease and anemia. He had pre-existing hypertension, hyperlipidemia, and type II diabetes. He had developed stage III chronic kidney disease following a colonoscopy prep. He had been seeing Dr. Miguelangel Cha for his nephrology follow-up care, and he was then found to have evidence of IgA kappa monoclonal gammopathy in October 2010. He was initially seen here by Dr. Plasencia in September 2011. At that point his protein electrophoresis showed IgA kappa monoclonal protein quantitating at 1.3 g/dL with 0.2 g/dL of free kappa monoclonal protein. UPEP was reportedly unrevealing. Bone marrow aspiration/biopsy showed 12% plasma cells. 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 There was no evidence of lytic bone involvement. His baseline creatinine was 1.8 mg/dL. He was treated initially with 3 cycles of Velcade/dexamethasone between October and December 2011. He required a dose reduction in the Velcade due to neuropathy. His repeat bone marrow aspiration/biopsy at [facility] on 01/01/2012 showed increase in the plasma cells to 17%. He then continued treatment at [facility] with autologous peripheral stem cell transplant in January 2012, I assume with high-dose melphalan, though it is not stated in the available records. The procedure was complicated by sepsis and acute renal failure requiring hemodialysis. He had subsequent relapse of the myeloma. His further treatment included 10 cycles of carfilzomib and dexamethasone beginning in May 2015. It was changed to carfilzomib, Revlimid, and dexamethasone beginning in January 2016 due to disease progression. Following further disease progression, his treatment was transitioned to carfilzomib, pomalidomide, and dexamethasone. As of October 2016, due to progressive kidney disease concerning for progressive myeloma, his treatment was changed to daratumumab, Revlimid, and dexamethasone. The Revlimid and dexamethasone were subsequently omitted due to toxicities, and he has since then continued daratumumab as a single agent. It has been administered on a monthly schedule. During this time his kidney function had progressed to end-stage renal disease, and he is on home peritoneal dialysis. He had been receiving treatment at [facility]. He was seen here in October 2017 because he desired to continue his further treatment locally. Following his initial visit he continued monthly daratumumab infusions with no apparent adverse effects and no obvious progression of the myeloma. His hemoglobin/hematocrit levels remained stable above transfusion thresholds. On 06/25/2018 he was seen in the emergency room with increasing weakness. On evaluation, he was found to have a low B12 level at 168 pg/mL, and his TSH level was found to be elevated at 13.500 mIU/mL. He started B12 injections, and he also started thyroid replacement. As of 07/22/2018 there was further decline in the hemoglobin to 8.6 g, and at that point he did start treatment with Procrit. He had a very good response with his hemoglobin increasing to 12.2 g after 2 weekly injections. As of October 2018 he had opted to be admitted to the assisted, and he then began hemodialysis. At that point his erythropoietin stimulating agent was changed to Mircera. He then became progressively more anemic. As of 12/02/2018 his hemoglobin had stabilized at 7.9 g. He then restarted Procrit on 12/17/2018. During this time, he also had continued his monthly daratumumab infusions. His anemia did improve after restarting the Procrit. During follow-up his clinical status had otherwise remained stable. His protein electrophoresis had continued to show a very small M protein spike. There had been no significant change in his serum free light chains. 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 His medical illnesses, in addition to myeloma and renal failure, include hypertension, hyperlipidemia, type II diabetes with peripheral neuropathy, and benign prostatic hypertrophy. He is a nonsmoker. INTERIM HISTORY: He then continued on his monthly daratumumab infusions. As of 12/09/2019 he received cycle 38 of daratumumab. He had been tolerating the treatment well and his clinical status had been stable. However, he had been showing a very gradual increase in his M protein, in the kappa free light chain, and in the kappa/lambda ratio. I had discussed options for further treatment, and we ultimately decided to just try adding back carfilzomib. He began cycle 1 of daratumumab in combination with carfilzomib and dexamethasone on 03/01/2020. He tolerated the day 1 and day 2 carfilzomib infusions without acute toxicity. He was then able to continue with his day 7/8 and day 15/16 carfilzomib infusions on schedule, but he was not able to tolerate any dose escalation due to moderately severe thrombocytopenia. He continued with cycle 2 on 03/29/2020 with the carfilzomib dosage unchanged. He is seen for a scheduled visit. He has been feeling good generally. He has good energy, but he does quite a bit of walking at the assisted. ECOG score is 2. He has good appetite. He has no fever or night sweats. He has no shortness of breath, cough, or chest pain. He has no GI complaints. He is still making urine, but not a lot. He has no significant joint or bone pain. He does not complain of headache or dizziness. He has some numbness in his feet, which is unchanged. Medications: Acetaminophen 2 Tablet (of 325 mg) Oral four times a day PRN, Acyclovir 1 Tablet (of 400 mg) Oral daily, Albuterol Sulfate 1 Vial(s) (of (2.5 mg/3ml) 0.083%) Nebulization solution Inhalation t.i.d. PRN, Albuterol Sulfate 1 Inhalation (of 108 (90 base) mcg/act) Aerosol Powder, Breath Activated Inhalation q 4 hours, Allopurinol 1 Tablet (of 100 mg) Oral daily, ALPRAZolam 1 Tablet (of 0.25 mg) Oral at bedtime, amLODIPine Besylate 1 Tablet (of 2.5 mg) Oral daily, Bisacodyl EC 2 Tablet (of 5 mg) Tablet, enteric coated Oral daily PRN, Calcium Acetate 1 Capsule (of 667 mg) Oral t.i.d., Cholecalciferol Tablet Oral, Cipro 1 Tablet (of 500 mg) Oral b.i.d., Fluconazole 1 Tablet (of 100 mg) Oral daily, Furosemide 1 Tablet (of 80 mg) Oral daily, Gentamicin Sulfate 1 (0.1 %) Cream Topical at bedtime, Levothyroxine Sodium 1 Tablet (of 50 mcg) Oral daily, Loperamide HCl 1 - 2 Tablet (of 2 mg) Oral PRN, Lovastatin 1 (40 mg) Tablet Oral at bedtime, Mucinex 1 Tablet (of 600 mg) Tablet SR 12 HR Oral b.i.d. PRN, Prochlorperazine Maleate 1 Tablet (of 10 mg) Oral q 6 hours PRN, Requip 1 Tablet (of 0.5 mg) Oral b.i.d., Tamsulosin HCl 1 Tablet (of 0.4 mg) Capsule Oral b.i.d. Allergies: Bactrim, Codeine Sulfate, Sulfa Antibiotics, TraMADol HCl, and Verapamil HCl. Review of Systems: Constitutional - He has been feeling real good. He has good energy and he walks frequently. His appetite is good and weight is stable. No fever, night sweats, or hot flashes. ECOG score is 2, ENMT - No sinus congestion/drainage. No mouth sores. No sore throat or difficulty swallowing, Hematologic/Lymphatic - He bruises easily, Respiratory - No shortness of breath. No cough. No pleuritic pain or hemoptysis, Cardiovascular - No angina pain. No palpitations, Gastrointestinal - No nausea or vomiting. No heartburn or acid reflux. No diarrhea or constipation. No blood in the stool or black stools, Genitourinary (M) - No dysuria or hematuria. He has urinary frequency, but he voids small amounts. No urgency or incontinence, Musculoskeletal - No joint or bone pain, Integumentary - No skin complications, Neurologic - No headache or dizziness. He has some tingling in his feet, which is unchanged. No other focal neurologic symptoms, Psychiatric - No anxiety or depression. No insomnia. Vital Signs: Performed on Apr 26, 2020 10:57 Height - 69.00 in Weight - 146.4 lbs BSA - 1.81 sq.m BMI - 21.62 Temperature - 97.2 F (LOW) Pulse - 80 /min Respiration - 18 /min BP - 132/68 mm(hg) O2 Sat - 100 % Pain - 0 Physical Examination: Constitutional - He looks pretty good generally, Eyes - Sclerae nonicteric. Conjunctivae clear, ENMT - No lesions noted in the oral cavity, Hematologic/Lymphatic - No cervical, clavicular, or axillary adenopathy, Respiratory - Lungs are clear with good air movement bilaterally, Cardiovascular - Heart rhythm is regular. There is a II/ systolic murmur. There is no gallop or rub noted, Abdomen - Soft. Liver and spleen are not enlarged. There is no abdominal mass or ascites noted and there is no inguinal adenopathy, Extremities - No edema. He has chroic purpura, Neurologic - No focal neurologic deficits noted. Lab/Imaging: CBC shows hemoglobin 9.2 g, white blood cell count 3600, and platelet count 87,000. Comprehensive metabolic profile shows stable renal function (on dialysis). The liver enzymes are mildly elevated with SGOT 66/40 U/L and SGPT 103/41 U/L. The protein electrophoresis show stable M protein at 1.3 g/dL. Impression: 1. Patient with IgA kappa myeloma, initially diagnosed in September 2011. He has associated end-stage renal disease and anemia. 2. He had disease progression following initial treatment with 3 cycles of Velcade/dexamethasone completed in December 2011. 3. He underwent autologous peripheral stem cell transplant at [facility] in January 2012, complicated by sepsis and acute renal failure requiring hemodialysis. 4. Following disease recurrence he had further treatment with 10 cycles of carfilzomib and dexamethasone beginning in May 2015. 5. Following disease progression he had further treatment with carfilzomib, Revlimid, and dexamethasone beginning in January 2016, and subsequently with carfilzomib, pomalidomide, and dexamethasone. 6. He then had further decline in kidney function with progression to end-stage renal disease, concerning for progressive myeloma. He began treatment with daratumumab, Revlimid, and dexamethasone beginning in October 2016. His treatment was later transitioned to single agent daratumumab due to toxicities with Revlimid and dexamethasone. He is now receiving daratumumab infusions on a monthly schedule. 7. He has been on daily home peritoneal dialysis for the end-stage renal disease, but he is now going to be starting hemodialysis. 8. 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 In April 2018 he had started treatment with Procrit, and thus far he has had a good clinical response. 9. He has associated hypogammaglobulinemia, but he has not been symptomatic with it. His other medical illnesses include: 10. Hypertension. 11. Hyperlipidemia. 12. Type II diabetes with peripheral neuropathy. 13. Benign prostatic hypertrophy. In June 2018 he was found to have a low B12 level, and he did start B12 replacement. He also was found to have a mildly elevated TSH level, and he also started thyroid replacement. His repeat B12 level in August was actually high, and the B12 injections were subsequently stopped. As of October 2018 he opted to be admitted to the assisted, and he then started hemodialysis. At that point his erythropoietin stimulating agent was changed to Mircera. During subsequent follow-up there was further decline in his hemoglobin, eventually stabilizing at 7.9 g. As of November 2018 he restarted Procrit, and he had a very good clinical response. He has continued monthly daratumumab infusions for the myeloma, and he has continued Procrit injections as needed with this target hemoglobin at 10 g. His protein electrophoresis studies had been showing a gradual increase in the M protein and in the kappa free light chain and in the kappa/lambda ratio. He was not overtly symptomatic with it, by with the progressive increase, I did recommend a change in his treatment regimen. We discussed several options and he ultimately decided to try adding back carfilzomib. He began cycle 1 of daratumumab in combination with carfilzomib and dexamethasone on 03/01/2020. He tolerated the day 1 and day 2 carfilzomib infusions without acute toxicity. He was then able to continue his further treatment on schedule, but he was not able to tolerate any escalation of the carfilzomib dosage due to moderately severe thrombocytopenia. He continued with cycle 2 on 03/29/2020. He continues to have moderately severe thrombocytopenia, but with his platelet count holding stable. There has been a mild increase in his liver enzymes. His M protein thus far has also remained stable. Plan: He will continue with cycle 3 of daratumumab, carfilzomib, and dexamethasone. The dosages will remain the same. He returns for treatment in 1 week and in 2 weeks, and he will be scheduled for a follow-up visit in 1 month. Signed By: Dustin Pinto M.D. <<Signature on File>>
== END 2020-04-26 06:18 | disposition home or self-care (01) ==
PROVIDERS: PCP Family Medicine; Visit Provider Internal Medicine Medical Oncology
DX: Z51.12 Encounter for antineoplastic immunotherapy (principal); C90.02 Multiple myeloma in relapse; N18.6 End stage renal disease; D63.1 Anemia in chronic kidney disease; E11.22 Type 2 diabetes mellitus with diabetic chronic kidney disease; I12.0 Hypertensive chronic kidney disease with stage 5 chronic kidney disease or end stage renal disease; D80.1 Nonfamilial hypogammaglobulinemia; D69.59 Other secondary thrombocytopenia; T45.1X5A Adverse effect of antineoplastic and immunosuppressive drugs, initial encounter; E78.5 Hyperlipidemia, unspecified; N40.0 Benign prostatic hyperplasia without lower urinary tract symptoms; E53.8 Deficiency of other specified B group vitamins; Z99.2 Dependence on renal dialysis; Z79.52 Long term (current) use of systemic steroids; Z79.899 Other long term (current) drug therapy
CPT/HCPCS: 96361; 96367; 96413; 96415; 96417; 99214; J1100; J1200; J2405; J7040; J9047; J9145

== ENCOUNTER 2020-04-27 06:20 | Outpatient (CLI) | payer MEDICARE, OTHER, SELFPAY ==
[2020-04-27] MEDS: palonosetron 0.25 mg/5 mL SDV IV (08:35)
[2020-04-27] MEDS: sodium chloride 0.9% 500 ML 999 ML IV (08:35)
[2020-04-27] MEDS: dexamethasone 20 MG in sodium chloride 0.9% 50 ML 188 MG IV (08:52)
== END 2020-04-27 06:21 | disposition home or self-care (01) ==
PROVIDERS: PCP Family Medicine; Visit Provider Internal Medicine Medical Oncology
DX: Z51.11 Encounter for antineoplastic chemotherapy (principal); C90.02 Multiple myeloma in relapse
CPT/HCPCS: 96361; 96367; 96413; J1100; J1200; J2469; J7040; J9047

== ENCOUNTER 2020-05-02 07:10 | Outpatient (CLI) | payer MEDICARE, OTHER, SELFPAY ==
[2020-05-02 11:14] LABS: Eosinophils # 0.1 10^3/uL (0.0-0.8); Eosinophils % 1.7 %; Hematocrit 27.3 % (42.0-52.0); Hemoglobin 8.9 g/dL (11.7-16.6); Lymphocytes % 34.8 %; Mean Corpuscular HGB Conc 32.6 g/dL (30.0-36.0); Mean Corpuscular Hemoglobin 37.9 pg (28.0-34.0); Mean Corpuscular Volume 116.2 fL (80-94); Mean Platelet Volume 11.9 fL (7.4-10.4); Monocytes # 0.4 10^3/uL (0.2-0.9); Monocytes % 13.3 %; Neutrophils # 1.46 10^3/uL (1.8-7.7); Neutrophils % 49.9 %; Nucleated Red Blood Cells % 0 %; Platelet Count 91 10^3/cmm (130-400); Red Blood Count 2.35 10^6/uL (4.1-5.3); Red Cell Distribution Width 16.6 % (12.1-15.1); White Blood Count 2.9 10^3/uL (4.0-10.0)
== END 2020-05-02 07:11 | disposition home or self-care (01) ==
LOC: ONCMED 12:07
PROVIDERS: PCP Family Medicine; Visit Provider Internal Medicine Medical Oncology
DX: C90.02 Multiple myeloma in relapse (principal)
CPT/HCPCS: 85025

== ENCOUNTER 2020-05-03 06:17 | Outpatient (CLI) | payer MEDICARE, OTHER, SELFPAY ==
[2020-05-03] MEDS: sodium chloride 0.9% 500 ML 999 ML IV (10:40)
[2020-05-03] MEDS: dexamethasone 20 MG in sodium chloride 0.9% 50 ML 187 MG IV (10:56)
== END 2020-05-03 06:18 | disposition home or self-care (01) ==
LOC: ONCMED 06:19
PROVIDERS: PCP Family Medicine; Visit Provider Internal Medicine Medical Oncology
DX: Z51.11 Encounter for antineoplastic chemotherapy (principal); C90.02 Multiple myeloma in relapse; N18.6 End stage renal disease; Z99.2 Dependence on renal dialysis; N40.0 Benign prostatic hyperplasia without lower urinary tract symptoms; E78.5 Hyperlipidemia, unspecified; I12.0 Hypertensive chronic kidney disease with stage 5 chronic kidney disease or end stage renal disease; E11.42 Type 2 diabetes mellitus with diabetic polyneuropathy
CPT/HCPCS: 96361; 96367; 96413; J1100; J1200; J2405; J7040; J9047

== ENCOUNTER 2020-05-04 06:10 | Outpatient (CLI) | payer MEDICARE, OTHER, SELFPAY ==
[2020-05-04] MEDS: sodium chloride 0.9% 500 ML 999 ML IV (08:25)
[2020-05-04] MEDS: palonosetron 0.25 mg/5 mL SDV IV (08:41)
[2020-05-04] MEDS: dexamethasone 20 MG in sodium chloride 0.9% 50 ML 188 MG IV (08:41)
== END 2020-05-04 06:11 | disposition home or self-care (01) ==
LOC: ONCMED 06:13
PROVIDERS: PCP Family Medicine; Visit Provider Internal Medicine Medical Oncology
DX: Z51.11 Encounter for antineoplastic chemotherapy (principal); C90.02 Multiple myeloma in relapse; N18.6 End stage renal disease; Z99.2 Dependence on renal dialysis; N40.0 Benign prostatic hyperplasia without lower urinary tract symptoms; E78.5 Hyperlipidemia, unspecified; I12.0 Hypertensive chronic kidney disease with stage 5 chronic kidney disease or end stage renal disease; E11.42 Type 2 diabetes mellitus with diabetic polyneuropathy
CPT/HCPCS: 96361; 96367; 96413; J1100; J1200; J2469; J7040; J9047

== ENCOUNTER 2020-05-09 07:00 | Outpatient (CLI) | payer MEDICARE, OTHER, SELFPAY ==
[2020-05-09 11:03] LABS: Eosinophils # 0.1 10^3/uL (0.0-0.8); Eosinophils % 1.5 %; Hematocrit 26.4 % (42.0-52.0); Hemoglobin 8.5 g/dL (11.7-16.6); Lymphocytes # 1.1 10^3/uL (0.8-4.8); Lymphocytes % 23.2 %; Mean Corpuscular HGB Conc 32.2 g/dL (30.0-36.0); Mean Corpuscular Hemoglobin 37.9 pg (28.0-34.0); Mean Corpuscular Volume 117.9 fL (80-94); Mean Platelet Volume 11.4 fL (7.4-10.4); Monocytes # 0.5 10^3/uL (0.2-0.9); Monocytes % 10.2 %; Neutrophils # 2.93 10^3/uL (1.8-7.7); Neutrophils % 64.9 %; Nucleated Red Blood Cells % 0 %; Platelet Count 101 10^3/cmm (130-400); Red Blood Count 2.24 10^6/uL (4.1-5.3); White Blood Count 4.5 10^3/uL (4.0-10.0)
== END 2020-05-09 11:06 | disposition home or self-care (01) ==
PROVIDERS: PCP Family Medicine; Visit Provider Internal Medicine Medical Oncology
DX: C90.02 Multiple myeloma in relapse (principal); N18.6 End stage renal disease; Z99.2 Dependence on renal dialysis; N40.0 Benign prostatic hyperplasia without lower urinary tract symptoms; E78.5 Hyperlipidemia, unspecified; I12.0 Hypertensive chronic kidney disease with stage 5 chronic kidney disease or end stage renal disease; E11.42 Type 2 diabetes mellitus with diabetic polyneuropathy
CPT/HCPCS: 36415; 85025

== ENCOUNTER 2020-05-10 10:36 | Outpatient (CLI) | payer MEDICARE, OTHER, SELFPAY ==
[2020-05-10] MEDS: sodium chloride 0.9% 500 ML 999 ML IV (10:55)
[2020-05-10] MEDS: dexamethasone 20 MG in sodium chloride 0.9% 50 ML 187 MG IV (11:30)
== END 2020-05-10 10:37 | disposition home or self-care (01) ==
LOC: ONCMED 10:39
PROVIDERS: PCP Family Medicine; Visit Provider Internal Medicine Medical Oncology
DX: Z51.11 Encounter for antineoplastic chemotherapy (principal); C90.02 Multiple myeloma in relapse; N18.6 End stage renal disease
CPT/HCPCS: 96361; 96367; 96413; J1100; J1200; J2405; J7040; J9047

== ENCOUNTER 2020-05-11 08:06 | Outpatient (CLI) | payer MEDICARE, OTHER, SELFPAY ==
[2020-05-11] MEDS: sodium chloride 0.9% 500 ML 999 ML IV (08:18)
[2020-05-11] MEDS: dexamethasone 20 MG in sodium chloride 0.9% 50 ML 187 MG IV (08:35)
[2020-05-11] MEDS: palonosetron 0.25 mg/5 mL SDV IV (08:35)
== END 2020-05-11 08:07 | disposition home or self-care (01) ==
LOC: ONCMED 08:09
PROVIDERS: PCP Family Medicine; Visit Provider Internal Medicine Medical Oncology
DX: Z51.11 Encounter for antineoplastic chemotherapy (principal); C90.02 Multiple myeloma in relapse
CPT/HCPCS: 96361; 96367; 96413; J1100; J1200; J2469; J7040; J9047

== ENCOUNTER 2020-05-23 10:30 | Outpatient (CLI) | payer MEDICARE, OTHER, SELFPAY ==
[2020-05-23 11:32] LABS: Basophils % 0.7 %; Eosinophils % 1.3 %; Hemoglobin 8.2 g/dL (11.7-16.6); Lymphocytes # 0.8 10^3/uL (0.8-4.8); Lymphocytes % 27.5 %; Mean Corpuscular HGB Conc 31.5 g/dL (30.0-36.0); Mean Corpuscular Hemoglobin 39.4 pg (28.0-34.0); Mean Platelet Volume 10.3 fL (7.4-10.4); Monocytes # 0.4 10^3/uL (0.2-0.9); Monocytes % 12.6 %; Neutrophils # 1.74 10^3/uL (1.8-7.7); Neutrophils % 57.6 %; Nucleated Red Blood Cells % 0 %; Platelet Count 82 10^3/cmm (130-400); Red Blood Count 2.08 10^6/uL (4.1-5.3); Red Cell Distribution Width 19.2 % (12.1-15.1)
[2020-05-23 11:55] LABS: Alanine Aminotransferase 29 U/L (0-41); Albumin Level 3.6 g/dL (3.5-5.2); Alkaline Phosphatase 88 IU/L (40-130); Anion Gap 19.4 (5-19); Aspartate Amino Transferase 20 U/L (0-40); Blood Urea Nitrogen 41 mg/dL (8-23); Calcium 8.7 mg/dL (8.5-10.5); Carbon Dioxide 29 mmol/L (22-29); Chloride 97 mmol/L (98-107); Globulin 3.5 g/dL (1.3-4.6); Glucose 74 mg/dL (65-115); Immunoglobulin IGG 300 mg/dL (700-1600); Immunoglobulin IGM 25 mg/dL (40-230); Osmolality Calculated 301 mOsm/kg (285-295); Potassium 4.4 mmol/L (3.5-5.1); Sodium 141 mmol/L (136-145); Total Bilirubin 0.4 mg/dL (0.15-1.2); Total Protein 7.1 g/dL (6.6-8.7)
[2020-05-23 12:43] LABS: Immunoglobulin IGA 1750 mg/dL (70-400)
[2020-05-24 13:22] LABS: PROTEIN, TOTAL 6.6 g/dL (6.1-8.1)
[2020-05-24 14:53] LABS: ABNORMAL PROTEIN BAND 1 1.2 g/dL (NONE DETECTED); ALBUMIN 3.5 g/dL (3.8-4.8); ALPHA 1 GLOBULIN 0.3 g/dL (0.2-0.3); ALPHA 2 GLOBULIN 0.6 g/dL (0.5-0.9); BETA 1 GLOBULIN 0.3 g/dL (0.4-0.6); BETA 2 GLOBULIN 0.3 g/dL (0.2-0.5); GAMMA GLOBULIN 1.6 g/dL (0.8-1.7)
[2020-05-24 15:17] LABS: KAPPA LIGHT CHAIN, FREE, SERUM 63.4 mg/L (3.3-19.4); KAPPA/LAMBDA LIGHT CHAINS FREE 25.36 (0.26-1.65); LAMBDA LIGHT CHAIN, FREE, SERU 2.5 mg/L (5.7-26.3)
== END 2020-05-23 10:31 | disposition home or self-care (01) ==
LOC: ONCMED 11:46
PROVIDERS: PCP Family Medicine; Visit Provider Internal Medicine Medical Oncology
DX: C90.02 Multiple myeloma in relapse (principal); E11.22 Type 2 diabetes mellitus with diabetic chronic kidney disease; N18.6 End stage renal disease; Z99.2 Dependence on renal dialysis; I12.0 Hypertensive chronic kidney disease with stage 5 chronic kidney disease or end stage renal disease; E11.42 Type 2 diabetes mellitus with diabetic polyneuropathy; D63.1 Anemia in chronic kidney disease; E78.5 Hyperlipidemia, unspecified; N40.0 Benign prostatic hyperplasia without lower urinary tract symptoms
CPT/HCPCS: 36415; 80053; 82784; 83883; 84155; 84165; 85025

== ENCOUNTER 2020-05-30 17:00 | Outpatient (CLI) | payer MEDICARE, OTHER, SELFPAY ==
[2020-05-30 18:09] LABS: Basophils % 0.5 %; Eosinophils % 1.8 %; Hematocrit 26.8 % (42.0-52.0); Hemoglobin 8.4 g/dL (11.7-16.6); Lymphocytes # 0.9 10^3/uL (0.8-4.8); Lymphocytes % 39.7 %; Mean Corpuscular HGB Conc 31.3 g/dL (30.0-36.0); Mean Corpuscular Volume 127.6 fL (80-94); Mean Platelet Volume 10.9 fL (7.4-10.4); Monocytes # 0.3 10^3/uL (0.2-0.9); Monocytes % 15.1 %; Neutrophils % 42.4 %; Nucleated Red Blood Cells % 0 %; Platelet Count 98 10^3/cmm (130-400); Red Cell Distribution Width 19.8 % (12.1-15.1); White Blood Count 2.2 10^3/uL (4.0-10.0)
[2020-05-30 18:25] LABS: Neutrophils # 0.93 10^3/uL (1.8-7.7)
[2020-05-30 18:39] LABS: Alanine Aminotransferase 26 U/L (0-41); Albumin Level 3.9 g/dL (3.5-5.2); Alkaline Phosphatase 78 IU/L (40-130); Aspartate Amino Transferase 24 U/L (0-40); Blood Urea Nitrogen 56 mg/dL (8-23); Calcium 8.8 mg/dL (8.5-10.5); Carbon Dioxide 27 mmol/L (22-29); Chloride 99 mmol/L (98-107); Globulin 3.3 g/dL (1.3-4.6); Glucose 136 mg/dL (65-115); Osmolality Calculated 308 mOsm/kg (285-295); Sodium 140 mmol/L (136-145); Total Bilirubin 0.4 mg/dL (0.15-1.2); Total Protein 7.2 g/dL (6.6-8.7)
== END 2020-05-30 17:01 | disposition home or self-care (01) ==
LOC: ONCMED 17:36
PROVIDERS: PCP Family Medicine; Visit Provider Nurse Practitioner
DX: C90.02 Multiple myeloma in relapse (principal); N18.6 End stage renal disease; Z99.2 Dependence on renal dialysis
CPT/HCPCS: 80053; 85025

== ENCOUNTER 2020-06-06 12:17 | Outpatient (CLI) | payer MEDICARE, OTHER, SELFPAY ==
[2020-06-06 14:01] LABS: Basophils % 1.1 %; Eosinophils # 0.1 10^3/uL (0.0-0.8); Eosinophils % 2.2 %; Hematocrit 30.8 % (42.0-52.0); Hemoglobin 9.6 g/dL (11.7-16.6); Lymphocytes # 0.8 10^3/uL (0.8-4.8); Mean Corpuscular HGB Conc 31.2 g/dL (30.0-36.0); Mean Corpuscular Hemoglobin 39.7 pg (28.0-34.0); Mean Corpuscular Volume 127.3 fL (80-94); Mean Platelet Volume 10.3 fL (7.4-10.4); Monocytes # 0.4 10^3/uL (0.2-0.9); Neutrophils # 1.49 10^3/uL (1.8-7.7); Neutrophils % 53.3 %; Nucleated Red Blood Cells % 0 %; Platelet Count 106 10^3/cmm (130-400); Red Blood Count 2.42 10^6/uL (4.1-5.3); Red Cell Distribution Width 19.9 % (12.1-15.1); White Blood Count 2.8 10^3/uL (4.0-10.0)
[2020-06-06 14:19] LABS: Alanine Aminotransferase 24 U/L (0-41); Alkaline Phosphatase 77 IU/L (40-130); Anion Gap 19.6 (5-19); Aspartate Amino Transferase 23 U/L (0-40); Blood Urea Nitrogen 43 mg/dL (8-23); Carbon Dioxide 28 mmol/L (22-29); Chloride 94 mmol/L (98-107); Globulin 3.6 g/dL (1.3-4.6); Glucose 111 mg/dL (65-115); Osmolality Calculated 296 mOsm/kg (285-295); Potassium 4.6 mmol/L (3.5-5.1); Sodium 137 mmol/L (136-145); Total Bilirubin 0.4 mg/dL (0.15-1.2); Total Protein 7.6 g/dL (6.6-8.7)
== END 2020-06-06 12:18 | disposition home or self-care (01) ==
LOC: ONCMED 13:50
PROVIDERS: PCP Family Medicine; Visit Provider Nurse Practitioner
DX: C90.02 Multiple myeloma in relapse (principal); D70.9 Neutropenia, unspecified
CPT/HCPCS: 80053; 85025

== ENCOUNTER 2020-06-07 06:02 | Outpatient (CLI) | payer MEDICARE, OTHER, SELFPAY ==
[2020-06-07] MEDS: acetaminophen 325 mg Tablet 650 MG PO (11:25)
[2020-06-07] MEDS: sodium chloride 0.9% 500 ML 999 ML IV (11:25)
[2020-06-07] MEDS: dexamethasone 20 MG in sodium chloride 0.9% 50 ML 187 MG IV (11:45)
--- NOTE | 2020-06-11 15:24 | ONC FU_ITS ---
[facility] Patient Note Patient: Larry Stephens Unit #: [id number]: [id number] Dictated By: Ann SheetsDate of Visit: Jun 07, 2020 Onc MED Follow-Up/Prog Note Chief Complaint: Multiple myeloma. History of Present Illness: Mr Stephens is a 74 year-old man with relapsed IgA kappa myeloma. He has associated end-stage renal disease and anemia. He had pre-existing hypertension, hyperlipidemia, and type II diabetes. He had developed stage III chronic kidney disease following a colonoscopy prep. He had been seeing Dr. Miguelangel Cha for his nephrology follow-up care, and he was then found to have evidence of IgA kappa monoclonal gammopathy in October 2010. He was initially seen here by Dr. Plasencia in September 2011. At that point his protein electrophoresis showed IgA kappa monoclonal protein quantitating at 1.3 g/dL with 0.2 g/dL of free kappa monoclonal protein. UPEP was reportedly unrevealing. Bone marrow aspiration/biopsy showed 12% plasma cells. 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 There was no evidence of lytic bone involvement. His baseline creatinine was 1.8 mg/dL. He was treated initially with 3 cycles of Velcade/dexamethasone between October and December 2011. He required a dose reduction in the Velcade due to neuropathy. His repeat bone marrow aspiration/biopsy at [facility] on 01/01/2012 showed increase in the plasma cells to 17%. He then continued treatment at [facility] with autologous peripheral stem cell transplant in January 2012, I assume with high-dose melphalan, though it is not stated in the available records. The procedure was complicated by sepsis and acute renal failure requiring hemodialysis. He had subsequent relapse of the myeloma. His further treatment included 10 cycles of carfilzomib and dexamethasone beginning in May 2015. It was changed to carfilzomib, Revlimid, and dexamethasone beginning in January 2016 due to disease progression. Following further disease progression, his treatment was transitioned to carfilzomib, pomalidomide, and dexamethasone. As of October 2016, due to progressive kidney disease concerning for progressive myeloma, his treatment was changed to daratumumab, Revlimid, and dexamethasone. The Revlimid and dexamethasone were subsequently omitted due to toxicities, and he has since then continued daratumumab as a single agent. It has been administered on a monthly schedule. During this time his kidney function had progressed to end-stage renal disease, and he is on home peritoneal dialysis. He had been receiving treatment at [facility]. He was seen here in October 2017 because he desired to continue his further treatment locally. Following his initial visit he continued monthly daratumumab infusions with no apparent adverse effects and no obvious progression of the myeloma. His hemoglobin/hematocrit levels remained stable above transfusion thresholds. On 06/25/2018 he was seen in the emergency room with increasing weakness. On evaluation, he was found to have a low B12 level at 168 pg/mL, and his TSH level was found to be elevated at 13.500 mIU/mL. He started B12 injections, and he also started thyroid replacement. As of 07/22/2018 there was further decline in the hemoglobin to 8.6 g, and at that point he did start treatment with Procrit. He had a very good response with his hemoglobin increasing to 12.2 g after 2 weekly injections. As of October 2018 he had opted to be admitted to the intermediate, and he then began hemodialysis. At that point his erythropoietin stimulating agent was changed to Mircera. He then became progressively more anemic. As of 12/02/2018 his hemoglobin had stabilized at 7.9 g. He then restarted Procrit on 12/17/2018. During this time, he also had continued his monthly daratumumab infusions. His anemia did improve after restarting the Procrit. During follow-up his clinical status had otherwise remained stable. His protein electrophoresis had continued to show a very small M protein spike. There had been no significant change in his serum free light chains. 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 His medical illnesses, in addition to myeloma and renal failure, include hypertension, hyperlipidemia, type II diabetes with peripheral neuropathy, and benign prostatic hypertrophy. He is a nonsmoker. INTERIM HISTORY: He then continued on his monthly daratumumab infusions. As of 12/09/2019 he received cycle 38 of daratumumab. He had been tolerating the treatment well and his clinical status had been stable. However, he had been showing a very gradual increase in his M protein, in the kappa free light chain, and in the kappa/lambda ratio. I had discussed options for further treatment, and we ultimately decided to just try adding back carfilzomib. He began cycle 1 of daratumumab in combination with carfilzomib and dexamethasone on 03/01/2020. He tolerated the day 1 and day 2 carfilzomib infusions without acute toxicity. He was then able to continue with his day 7/8 and day 15/16 carfilzomib infusions on schedule, but he was not able to tolerate any dose escalation due to moderately severe thrombocytopenia. He continued with cycle 2 on 03/29/2020 with the carfilzomib dosage unchanged. Mr. Stephens is here today for follow-up. He is due to start cycle 4 carfilzomib. He has had a 2-week delay due to thrombocytopenia and neutropenia. His ANC last week was 930. His platelets the week prior was 82,000. He states overall he feels great. He has no new concerns. Denies any fever or chills. He has had no signs or symptoms of infection. He denies any COVID symptoms, he states that the residential center he is has cope at all over the place . However he has not had any symptoms or had any personal testing at this time. He continues to do dialysis 3 days a week. Is tolerating this good. He denies any bleeding from his fistula. He states his appetite is good. His energy is limited just because of the shot down/lock-in . He states he is not been able to do as much exercise as he normally does due to the restrictions at the residential center/assisted living facility because of the COVID exposure. He denies any new pain. He denies any neuropathy. He denies mouth sores. His ECOG is 1. Past Medical History: Benign prostatic hypertrophy End stage renal disease on home peritoneal dialysis Hyperlipidemia Hypertension Multiple myeloma Type II diabetes with peripheral neuropathy Past Surgical History: Placement of peritoneal diaysis catheter Placement of portacath venous access device Fistula in left arm in 2019 Prevnar 13 in 2018 Cataract excision in 2016 Right inguinal hernia repair in 2007 Cholecystectomy in 1983 Allergies: Bactrim, Codeine Sulfate, Sulfa Antibiotics, TraMADol HCl, and Verapamil HCl. Medications: Acetaminophen 2 Tablet (of 325 mg) Oral four times a day PRN Acyclovir 1 Tablet (of 400 mg) Oral daily Albuterol Sulfate 1 Vial(s) (of (2.5 mg/3ml) 0.083%) Nebulization solution Inhalation t.i.d. PRN Albuterol Sulfate 1 Inhalation (of 108 (90 base) mcg/act) Aerosol Powder, Breath Activated Inhalation q 4 hours Allopurinol 1 Tablet (of 100 mg) Oral daily ALPRAZolam 1 Tablet (of 0.25 mg) Oral at bedtime amLODIPine Besylate 1 Tablet (of 2.5 mg) Oral daily Bisacodyl EC 2 Tablet (of 5 mg) Tablet, enteric coated Oral daily PRN Calcium Acetate 1 Capsule (of 667 mg) Oral t.i.d. Cholecalciferol Tablet Oral Cipro 1 Tablet (of 500 mg) Oral b.i.d. Fluconazole 1 Tablet (of 100 mg) Oral daily Furosemide 1 Tablet (of 80 mg) Oral daily Gentamicin Sulfate 1 (0.1 %) Cream Topical at bedtime Levothyroxine Sodium 1 Tablet (of 50 mcg) Oral daily Loperamide HCl 1 - 2 Tablet (of 2 mg) Oral PRN Lovastatin 1 (40 mg) Tablet Oral at bedtime Mucinex 1 Tablet (of 600 mg) Tablet SR 12 HR Oral b.i.d. PRN Prochlorperazine Maleate 1 Tablet (of 10 mg) Oral q 6 hours PRN Requip 1 Tablet (of 0.5 mg) Oral b.i.d. Tamsulosin HCl 1 Tablet (of 0.4 mg) Capsule Oral b.i.d. Family History: Mr. Stephens's mother at age 82: Breast Cancer at age 70. Mr. Stephens's father at age 40. Mr. Stephens's maternal grandmother at age 80: cancer history consists of Breast cancer at age 80 (cause of ). Father at age 40, cause unknown to the patient. Mother of breast cancer at age 82. His maternal grandmother also had breast cancer. Social History: Mr. Stephens is and he is retired. Mr. Stephens has never smoked. He has no history of drinking. He is a nonsmoker. He does not drink alcohol. Review Of Symptoms: Constitutional Denies fevers, chills, night sweats, excessive fatigue or weight loss. Allergic/Immunologic No reactions. Eyes Denies significant visual changes. No diplopia. No amaurosis. ENMT Denies changes in hearing, sore throat, mouth sores, difficulty or changes in swallowing ability, and/or sinus drainage. Endocrine No diabetes, thyroid disease or hormone replacement. Denies hot flashes or night sweats. Hematologic/Lymphatic Denies easy bruising or bleeding. The patient denies any tender or palpable lymph nodes. Respiratory Denies dyspnea on exertion, chest pain, cough or hemoptysis. Denies orthopnea. Cardiovascular Denies anginal chest pain, palpitations or orthopnea. Gastrointestinal Denies nausea, vomiting, GI bleeding, or constipation. Denies change in bowel habits and/or stool color, no heartburn or early satiety. Genitourinary (M) Denies hematuria, dysuria, increased frequency, urgency, hesitancy or incontinence. Musculoskeletal Denies joint pain, swelling or redness. No decreased range of motion. Integumentary Denies chronic rashes, inflammation, ulcerations or skin changes. Neurologic Denies headache, blurred vision, and no areas of focal weakness or numbness. Normal gait. No sensory problems. Psychiatric Denies worsening insomnia-using Benadryl and Melatonin prn. Denies depression, brielle or mood swings. Vital Signs: Performed on Jun 07, 2020 10:48 Height - 69.00 in Weight - 140.6 lbs (LOW) BSA - 1.78 sq.m BMI - 20.76 Temperature - 98.0 F (LOW) Pulse - 76 /min Respiration - 16 /min BP - 104/53 mm(hg) O2 Sat - 94 % (LOW) Pain - 0,1 - No physically strenuous activity, but ambulatory and able to carry out light or sedentary work (e.g. office work, light house work). (ECOG) Physical Examination: Constitutional Alert, oriented, no acute distress. Skin pink, warm and dry. Head Normocephalic; atraumatic. Eyes Conjunctivae and sclerae are clear and without icterus. Pupils are reactive and equal. Neck Supple without masses or thyromegaly. No jugular venous distension. Hematologic/Lymphatic No petechiae or purpura. Some bruising on hands-chronic Respiratory Lungs are clear to auscultation without rhonchi or wheezing. Cardiovascular Regular rate and rhythm of heart without murmurs,clicks, gallops or rubs. Abdomen Non-tender, non-distended, no masses, Back/Spine Non-tender to palpation. Extremities No visible deformities, no cyanosis, clubbing or edema. Left arm fistula is unremarkable-no active bleeding and no significant bruising. Musculoskeletal No tenderness or swelling, normal range of motion without obvious weakness. Integumentary No rashes or lesions. Neurologic No sensory or motor deficits, normal cerebellar function, normal gait. Psychiatric Alert and oriented times three. Coherent speech. Verbalizes understanding of our discussions today. Laboratory:Test performed on May 23, 2020 10:30 Sodium 141 mmol/L Potassium 4.4 mmol/L Chloride 97 mmol/L CO2 29 mmol/L Anion Gap 19.4 BUN 41 mg/dL Creatinine 5.3 mg/dL Cr Clearance (Est) 11.6400 mL/min Glucose 74 mg/dL Osmolality - Calculated 301 mOsm/kg Calcium 8.7 mg/dL Protein, Total 7.1 g/dL Albumin 3.6 g/dL Globulin 3.5 g/dL Bilirubin, Total 0.4 mg/dL ALT (SGPT) 29 U/L AST (SGOT) 20 U/L Alkaline Phosphatase 88 IU/L WBC 3.0 10 3/uL RBC 2.08 10 6/uL HGB 8.2 g/dL HCT 26.0 % MCV 125.0 fL MCH 39.4 pg MCHC 31.5 g/dL RDW 19.2 % Platelet Count 82 10 3/cmm MPV 10.3 fL Neutrophils 1.74 10 3/uL Lymphocytes 0.8 10 3/uL Monocytes 0.4 10 3/uL Eosinophils 0.0 10 3/uL Basophils 0.0 10 3/uL Neutrophil % 57.6 % Lymphocyte % 27.5 % Monocyte % 12.6 % Eosinophil % 1.3 % Basophils % 0.7 % NRBC % 0 % IgG 300 mg/dL [place] Free Light Chains 63.4 mg/L Lambda Free Light Chains 2.5 mg/L IgA 1750 mg/dL [place]/Lambda Free Ratio 25.36 IgM 25 mg/dL Test performed on Dec 30, 2019 07:25 ESR (Sed Rate) 60 mm/hr Impression: 1. Patient with IgA kappa myeloma, initially diagnosed in September 2011. He has associated end-stage renal disease and anemia. 2. He had disease progression following initial treatment with 3 cycles of Velcade/dexamethasone completed in December 2011. 3. He underwent autologous peripheral stem cell transplant at [facility] in January 2012, complicated by sepsis and acute renal failure requiring hemodialysis. 4. Following disease recurrence he had further treatment with 10 cycles of carfilzomib and dexamethasone beginning in May 2015. 5. Following disease progression he had further treatment with carfilzomib, Revlimid, and dexamethasone beginning in January 2016, and subsequently with carfilzomib, pomalidomide, and dexamethasone. 6. He then had further decline in kidney function with progression to end-stage renal disease, concerning for progressive myeloma. He began treatment with daratumumab, Revlimid, and dexamethasone beginning in October 2016. His treatment was later transitioned to single agent daratumumab due to toxicities with Revlimid and dexamethasone. He is now receiving daratumumab infusions on a monthly schedule. 7. He has been on daily home peritoneal dialysis for the end-stage renal disease, but he is on hemodialysis. 8. 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 In April 2018 he had started treatment with Procrit, and thus far he has had a good clinical response. 9. He has associated hypogammaglobulinemia, but he has not been symptomatic with it. His other medical illnesses include: 10. Hypertension. 11. Hyperlipidemia. 12. Type II diabetes with peripheral neuropathy. 13. Benign prostatic hypertrophy. In June 2018 he was found to have a low B12 level, and he did start B12 replacement. He also was found to have a mildly elevated TSH level, and he also started thyroid replacement. His repeat B12 level in August was actually high, and the B12 injections were subsequently stopped. As of October 2018 he opted to be admitted to the intermediate, and he then started hemodialysis. At that point his erythropoietin stimulating agent was changed to Mircera. During subsequent follow-up there was further decline in his hemoglobin, eventually stabilizing at 7.9 g. As of November 2018 he restarted Procrit, and he had a very good clinical response. He has continued monthly daratumumab infusions for the myeloma, and he has continued Procrit injections as needed with this target hemoglobin at 10 g. His protein electrophoresis studies had been showing a gradual increase in the M protein and in the kappa free light chain and in the kappa/lambda ratio. He was not overtly symptomatic with it, by with the progressive increase, I did recommend a change in his treatment regimen. We discussed several options and he ultimately decided to try adding back carfilzomib. He began cycle 1 of daratumumab in combination with carfilzomib and dexamethasone on 03/01/2020. He tolerated the day 1 and day 2 carfilzomib infusions without acute toxicity. He was then able to continue his further treatment on schedule, but he was not able to tolerate any escalation of the carfilzomib dosage due to moderately severe thrombocytopenia. He continued with cycle 2 on 03/29/2020. He continues to have moderately severe thrombocytopenia, but with his platelet count holding stable. There has been a mild increase in his liver enzymes. His M protein thus far has also remained stable. Plan: 1. Proceed with cycle 4 of daratumumab, carfilzomib, and dexamethasone. The dosages will remain the same. 2. Continue current antiemetics as they are working well. 3. Return in 1 week with CBC CMP for day 8 and 9 treatment. 4. Mr. Stephens is instructed to contact us in interim should questions or problems arise. 5. He will continue his Procrit/alternative agent at dialysis as his hemoglobin is improving. He began receiving it IV???as it was indicated and his hemoglobin has gone from 8.4-9.6. 6. Labs from 06/06/2020 were reviewed in detail and discussed with Mr. Stephens and a copy was given to him. WBC 2.8, hemoglobin 9.6, platelets 106,000 ANC is 1500 LFTs are normal random glucose was 111. 7. Mr. Stephens was instructed to contact us in interim should questions or problems arise. Signed By: Ann Sheets-, [facility] Dustin Pinto MD <<Signature on File>>
== END 2020-06-07 06:03 | disposition home or self-care (01) ==
LOC: ONCMED 06:05
PROVIDERS: PCP Family Medicine; Visit Provider Nurse Practitioner
DX: Z51.12 Encounter for antineoplastic immunotherapy (principal); C90.02 Multiple myeloma in relapse; N18.6 End stage renal disease; Z99.2 Dependence on renal dialysis; D63.1 Anemia in chronic kidney disease; D80.1 Nonfamilial hypogammaglobulinemia; I10 Essential (primary) hypertension; E78.5 Hyperlipidemia, unspecified; E11.42 Type 2 diabetes mellitus with diabetic polyneuropathy; N40.0 Benign prostatic hyperplasia without lower urinary tract symptoms; Z79.899 Other long term (current) drug therapy; Z79.52 Long term (current) use of systemic steroids
CPT/HCPCS: 96361; 96367; 96413; 96415; 96417; 99214; J1100; J1200; J2405; J7040; J9047; J9145

== ENCOUNTER 2020-06-08 07:45 | Outpatient (CLI) | payer MEDICARE, OTHER, SELFPAY ==
[2020-06-08] MEDS: palonosetron 0.25 mg/5 mL SDV IV (08:30)
[2020-06-08] MEDS: dexamethasone 20 MG in sodium chloride 0.9% 50 ML 188 MG IV (08:30)
[2020-06-08] MEDS: acetaminophen 325 mg Tablet 650 MG PO (08:30)
[2020-06-08] MEDS: sodium chloride 0.9% 500 ML 75 ML IV (15:33)
== END 2020-06-08 07:46 | disposition home or self-care (01) ==
LOC: ONCMED 07:46
PROVIDERS: PCP Family Medicine; Visit Provider Nurse Practitioner
DX: Z51.11 Encounter for antineoplastic chemotherapy (principal); C90.02 Multiple myeloma in relapse; N18.6 End stage renal disease
CPT/HCPCS: 96361; 96367; 96413; J1100; J1200; J2469; J7040; J9047

== ENCOUNTER 2020-06-13 06:50 | Outpatient (CLI) | payer MEDICARE, OTHER, SELFPAY ==
[2020-06-13 12:12] LABS: Eosinophils # 0.1 10^3/uL (0.0-0.8); Eosinophils % 2.2 %; Hematocrit 33.5 % (42.0-52.0); Hemoglobin 10.5 g/dL (11.7-16.6); Lymphocytes % 29.1 %; Mean Corpuscular HGB Conc 31.3 g/dL (30.0-36.0); Mean Corpuscular Hemoglobin 39.8 pg (28.0-34.0); Mean Corpuscular Volume 126.9 fL (80-94); Mean Platelet Volume 11.4 fL (7.4-10.4); Monocytes # 0.4 10^3/uL (0.2-0.9); Monocytes % 11.8 %; Neutrophils # 2.02 10^3/uL (1.8-7.7); Neutrophils % 56.6 %; Nucleated Red Blood Cells % 0 %; Platelet Count 79 10^3/cmm (130-400); Red Blood Count 2.64 10^6/uL (4.1-5.3); White Blood Count 3.6 10^3/uL (4.0-10.0)
[2020-06-13 12:26] LABS: Alanine Aminotransferase 47 U/L (0-41); Albumin Level 3.8 g/dL (3.5-5.2); Alkaline Phosphatase 84 IU/L (40-130); Anion Gap 19.7 (5-19); Aspartate Amino Transferase 41 U/L (0-40); Blood Urea Nitrogen 55 mg/dL (8-23); Calcium 8.5 mg/dL (8.5-10.5); Carbon Dioxide 29 mmol/L (22-29); Chloride 95 mmol/L (98-107); Globulin 3.8 g/dL (1.3-4.6); Glucose 61 mg/dL (65-115); Osmolality Calculated 301 mOsm/kg (285-295); Potassium 4.7 mmol/L (3.5-5.1); Sodium 139 mmol/L (136-145); Total Bilirubin 0.5 mg/dL (0.15-1.2); Total Protein 7.6 g/dL (6.6-8.7)
== END 2020-06-13 06:51 | disposition home or self-care (01) ==
LOC: ONCMED 12:16
PROVIDERS: PCP Family Medicine; Visit Provider Nurse Practitioner
DX: C90.02 Multiple myeloma in relapse (principal); Z51.81 Encounter for therapeutic drug level monitoring; Z79.899 Other long term (current) drug therapy
CPT/HCPCS: 36415; 80053; 85025

== ENCOUNTER 2020-06-14 05:57 | Outpatient (CLI) | payer MEDICARE, OTHER, SELFPAY ==
[2020-06-14] MEDS: sodium chloride 0.9% 500 ML 999 ML IV (11:30)
[2020-06-14] MEDS: dexamethasone 20 MG in sodium chloride 0.9% 50 ML 187 MG IV (12:02)
--- NOTE | 2020-06-18 21:59 | ONC FU_ITS ---
[facility] Patient Note Patient: Larry Stephens Unit #: [id number]: [id number] Dictated By: Ann SheetsDate of Visit: Jun 14, 2020 Onc MED Follow-Up/Prog Note Chief Complaint: Multiple myeloma. History of Present Illness: Mr Stephens is a 74 year-old man with relapsed IgA kappa myeloma. He has associated end-stage renal disease and anemia. He had pre-existing hypertension, hyperlipidemia, and type II diabetes. He had developed stage III chronic kidney disease following a colonoscopy prep. He had been seeing Dr. Miguelangel Cha for his nephrology follow-up care, and he was then found to have evidence of IgA kappa monoclonal gammopathy in October 2010. He was initially seen here by Dr. Plasencia in September 2011. At that point his protein electrophoresis showed IgA kappa monoclonal protein quantitating at 1.3 g/dL with 0.2 g/dL of free kappa monoclonal protein. UPEP was reportedly unrevealing. Bone marrow aspiration/biopsy showed 12% plasma cells. 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 There was no evidence of lytic bone involvement. His baseline creatinine was 1.8 mg/dL. He was treated initially with 3 cycles of Velcade/dexamethasone between October and December 2011. He required a dose reduction in the Velcade due to neuropathy. His repeat bone marrow aspiration/biopsy at [facility] on 01/01/2012 showed increase in the plasma cells to 17%. He then continued treatment at [facility] with autologous peripheral stem cell transplant in January 2012, I assume with high-dose melphalan, though it is not stated in the available records. The procedure was complicated by sepsis and acute renal failure requiring hemodialysis. He had subsequent relapse of the myeloma. His further treatment included 10 cycles of carfilzomib and dexamethasone beginning in May 2015. It was changed to carfilzomib, Revlimid, and dexamethasone beginning in January 2016 due to disease progression. Following further disease progression, his treatment was transitioned to carfilzomib, pomalidomide, and dexamethasone. As of October 2016, due to progressive kidney disease concerning for progressive myeloma, his treatment was changed to daratumumab, Revlimid, and dexamethasone. The Revlimid and dexamethasone were subsequently omitted due to toxicities, and he has since then continued daratumumab as a single agent. It has been administered on a monthly schedule. During this time his kidney function had progressed to end-stage renal disease, and he is on home peritoneal dialysis. He had been receiving treatment at [facility]. He was seen here in October 2017 because he desired to continue his further treatment locally. Following his initial visit he continued monthly daratumumab infusions with no apparent adverse effects and no obvious progression of the myeloma. His hemoglobin/hematocrit levels remained stable above transfusion thresholds. On 06/25/2018 he was seen in the emergency room with increasing weakness. On evaluation, he was found to have a low B12 level at 168 pg/mL, and his TSH level was found to be elevated at 13.500 mIU/mL. He started B12 injections, and he also started thyroid replacement. As of 07/22/2018 there was further decline in the hemoglobin to 8.6 g, and at that point he did start treatment with Procrit. He had a very good response with his hemoglobin increasing to 12.2 g after 2 weekly injections. As of October 2018 he had opted to be admitted to the long term, and he then began hemodialysis. At that point his erythropoietin stimulating agent was changed to Mircera. He then became progressively more anemic. As of 12/02/2018 his hemoglobin had stabilized at 7.9 g. He then restarted Procrit on 12/17/2018. During this time, he also had continued his monthly daratumumab infusions. His anemia did improve after restarting the Procrit. During follow-up his clinical status had otherwise remained stable. His protein electrophoresis had continued to show a very small M protein spike. There had been no significant change in his serum free light chains. 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 His medical illnesses, in addition to myeloma and renal failure, include hypertension, hyperlipidemia, type II diabetes with peripheral neuropathy, and benign prostatic hypertrophy. He is a nonsmoker. INTERIM HISTORY: He then continued on his monthly daratumumab infusions. As of 12/09/2019 he received cycle 38 of daratumumab. He had been tolerating the treatment well and his clinical status had been stable. However, he had been showing a very gradual increase in his M protein, in the kappa free light chain, and in the kappa/lambda ratio. I had discussed options for further treatment, and we ultimately decided to just try adding back carfilzomib. He began cycle 1 of daratumumab in combination with carfilzomib and dexamethasone on 03/01/2020. He tolerated the day 1 and day 2 carfilzomib infusions without acute toxicity. He was then able to continue with his day 7/8 and day 15/16 carfilzomib infusions on schedule, but he was not able to tolerate any dose escalation due to moderately severe thrombocytopenia. He continued with cycle 2 on 03/29/2020 with the carfilzomib dosage unchanged. Mr. Stephens is here today for follow-up. He is here for cycle 4 Day 8 & 9 carfilzomib. He had a 2-week delay due to thrombocytopenia and neutropenia. His ANC was 930. His platelets were 82,000. They did improve to an acceptable level and he began cycle 4 on 06/07/2020. He states overall he feels great. He has no new concerns. Denies any fever or chills. He has had no signs or symptoms of infection. He denies any COVID symptoms, he states that the residential center he is has cope at all over the place . However he has not had any symptoms or had any personal testing at this time. He continues to do dialysis 3 days a week and is tolerating this good. He denies any bleeding from his fistula. He states his appetite is good. His energy is limited just because of the shot down/lock-in . He states he is not been able to do as much exercise as he normally does due to the restrictions at the residential center/assisted living facility because of the COVID exposure. He denies any new pain. He denies any neuropathy. He denies mouth sores. His ECOG is 1. Past Medical History: Benign prostatic hypertrophy End stage renal disease on home peritoneal dialysis Hyperlipidemia Hypertension Multiple myeloma Type II diabetes with peripheral neuropathy Past Surgical History: Placement of peritoneal diaysis catheter Placement of portacath venous access device Fistula in left arm in 2019 Prevnar 13 in 2018 Cataract excision in 2016 Right inguinal hernia repair in 2007 Cholecystectomy in 1983 Allergies: Bactrim, Codeine Sulfate, Sulfa Antibiotics, TraMADol HCl, and Verapamil HCl. Medications: Acetaminophen 2 Tablet (of 325 mg) Oral four times a day PRN Acyclovir 1 Tablet (of 400 mg) Oral daily Albuterol Sulfate 1 Vial(s) (of (2.5 mg/3ml) 0.083%) Nebulization solution Inhalation t.i.d. PRN Albuterol Sulfate 1 Inhalation (of 108 (90 base) mcg/act) Aerosol Powder, Breath Activated Inhalation q 4 hours Allopurinol 1 Tablet (of 100 mg) Oral daily ALPRAZolam 1 Tablet (of 0.25 mg) Oral at bedtime amLODIPine Besylate 1 Tablet (of 2.5 mg) Oral daily Bisacodyl EC 2 Tablet (of 5 mg) Tablet, enteric coated Oral daily PRN Calcium Acetate 1 Capsule (of 667 mg) Oral t.i.d. Cholecalciferol Tablet Oral Cipro 1 Tablet (of 500 mg) Oral b.i.d. Fluconazole 1 Tablet (of 100 mg) Oral daily Furosemide 1 Tablet (of 80 mg) Oral daily Gentamicin Sulfate 1 (0.1 %) Cream Topical at bedtime Levothyroxine Sodium 1 Tablet (of 50 mcg) Oral daily Loperamide HCl 1 - 2 Tablet (of 2 mg) Oral PRN Lovastatin 1 (40 mg) Tablet Oral at bedtime Mucinex 1 Tablet (of 600 mg) Tablet SR 12 HR Oral b.i.d. PRN Prochlorperazine Maleate 1 Tablet (of 10 mg) Oral q 6 hours PRN Requip 1 Tablet (of 0.5 mg) Oral b.i.d. Tamsulosin HCl 1 Tablet (of 0.4 mg) Capsule Oral b.i.d. Vital-D Rx 1 Tablet (of 1 mg) Oral daily Family History: Mr. Stephens's mother at age 82: Breast Cancer at age 70. Mr. Stephens's father at age 40. Mr. Stephens's maternal grandmother at age 80: cancer history consists of Breast cancer at age 80 (cause of ). Father at age 40, cause unknown to the patient. Mother of breast cancer at age 82. His maternal grandmother also had breast cancer. Social History: Mr. Stephens is and he is retired. Mr. Stephens has never smoked. He has no history of drinking. He is a nonsmoker. He does not drink alcohol. Review Of Symptoms: Constitutional Denies fevers, chills, night sweats, excessive fatigue or weight loss. Allergic/Immunologic No reactions. Eyes Denies significant visual changes. No diplopia. No amaurosis. ENMT Denies changes in hearing, sore throat, mouth sores, difficulty or changes in swallowing ability, and/or sinus drainage. Endocrine No diabetes, thyroid disease or hormone replacement. Denies hot flashes or night sweats. Hematologic/Lymphatic Denies easy bruising or bleeding. The patient denies any tender or palpable lymph nodes. Respiratory Denies dyspnea on exertion, chest pain, cough or hemoptysis. Denies orthopnea. Cardiovascular Denies anginal chest pain, palpitations or orthopnea. Gastrointestinal Denies nausea, vomiting, GI bleeding, or constipation. Denies change in bowel habits and/or stool color, no heartburn or early satiety. Genitourinary (M) Denies hematuria, dysuria, increased frequency, urgency, hesitancy or incontinence. Musculoskeletal Denies joint pain, swelling or redness. No decreased range of motion. Integumentary Denies chronic rashes, inflammation, ulcerations or skin changes. Neurologic Denies headache, blurred vision, and no areas of focal weakness or numbness. Normal gait. No sensory problems. Psychiatric Denies worsening insomnia-using Benadryl and Melatonin prn. Denies depression, brielle or mood swings. Vital Signs: Performed on Jun 14, 2020 10:40 Height - 69.00 in Weight - 142.2 lbs (HIGH) BSA - 1.79 sq.m BMI - 21.00 Temperature - 98.1 F (LOW) Pulse - 65 /min Respiration - 18 /min BP - 106/60 mm(hg) O2 Sat - 99 %,1 - No physically strenuous activity, but ambulatory and able to carry out light or sedentary work (e.g. office work, light house work). (ECOG) Physical Examination: Constitutional Alert, oriented, no acute distress. Skin pink, warm and dry. Head Normocephalic; atraumatic. Eyes Conjunctivae and sclerae are clear and without icterus. Pupils are reactive and equal. Neck Supple without masses or thyromegaly. No jugular venous distension. Hematologic/Lymphatic No petechiae or purpura. Some bruising on hands-chronic Respiratory Lungs are clear to auscultation without rhonchi or wheezing. Cardiovascular Regular rate and rhythm of heart without murmurs,clicks, gallops or rubs. Abdomen Non-tender, non-distended, no masses, Back/Spine Non-tender to palpation. Extremities No visible deformities, no cyanosis, clubbing or edema. Left arm fistula is unremarkable-no active bleeding and no significant bruising. Musculoskeletal No tenderness or swelling, normal range of motion without obvious weakness. Integumentary No rashes or lesions. Neurologic No sensory or motor deficits, normal cerebellar function, normal gait. Psychiatric Alert and oriented times three. Coherent speech. Verbalizes understanding of our discussions today. Laboratory:Test performed on Jun 08, 2020 14:18 % Iron Saturation 46 % Phosphorous 6.3 mg/dL Iron, Total 91 mcg/dL TIBC 200 mcg/dL Test performed on Jun 08, 2020 14:11 Glucose 77 mg/dL BUN 54 mg/dL Creatinine 6.49 mg/dL Cr Clearance (Est) 9.51 mL/min Sodium 138 mmol/L Potassium 4.7 mmol/L Chloride 99 mmol/L CO2 25 mmol/L Calcium 9 mg/dL Protein, Total 7.5 g/dL Albumin 3.6 g/dL Globulin 3.9 g/dL WBC 2.91 10^9/L RBC 2.53 10^12/L HGB 9.8 g/dL HCT 30.5 % MCV 120 fl MCH 38.9 pg MCHC 32.3 g/dL RDW 19.5 % Platelet Count 98 10^9/L Neutrophils (Gran) 1.3561 10^9/L Lymphocytes 1.0301 10^9/L Monocytes 0.2735 10^9/L Eosinophils 0.1048 10^9/L Basophils 0.0233 10^9/L Test performed on May 23, 2020 10:30 Anion Gap 19.4 Osmolality - Calculated 301 mOsm/kg Bilirubin, Total 0.4 mg/dL ALT (SGPT) 29 U/L AST (SGOT) 20 U/L Alkaline Phosphatase 88 IU/L MPV 10.3 fL Neutrophil % 57.6 % Lymphocyte % 27.5 % Monocyte % 12.6 % Eosinophil % 1.3 % Basophils % 0.7 % NRBC % 0 % IgG 300 mg/dL [place] Free Light Chains 63.4 mg/L Lambda Free Light Chains 2.5 mg/L IgA 1750 mg/dL [place]/Lambda Free Ratio 25.36 IgM 25 mg/dL Test performed on Dec 30, 2019 07:25 ESR (Sed Rate) 60 mm/hr Impression: 1. Patient with IgA kappa myeloma, initially diagnosed in September 2011. He has associated end-stage renal disease and anemia. 2. He had disease progression following initial treatment with 3 cycles of Velcade/dexamethasone completed in December 2011. 3. He underwent autologous peripheral stem cell transplant at [facility] in January 2012, complicated by sepsis and acute renal failure requiring hemodialysis. 4. Following disease recurrence he had further treatment with 10 cycles of carfilzomib and dexamethasone beginning in May 2015. 5. Following disease progression he had further treatment with carfilzomib, Revlimid, and dexamethasone beginning in January 2016, and subsequently with carfilzomib, pomalidomide, and dexamethasone. 6. He then had further decline in kidney function with progression to end-stage renal disease, concerning for progressive myeloma. He began treatment with daratumumab, Revlimid, and dexamethasone beginning in October 2016. His treatment was later transitioned to single agent daratumumab due to toxicities with Revlimid and dexamethasone. He is now receiving daratumumab infusions on a monthly schedule. 7. He has been on daily home peritoneal dialysis for the end-stage renal disease, but he is on hemodialysis. 8. 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 In April 2018 he had started treatment with Procrit, and thus far he has had a good clinical response. 9. He has associated hypogammaglobulinemia, but he has not been symptomatic with it. His other medical illnesses include: 10. Hypertension. 11. Hyperlipidemia. 12. Type II diabetes with peripheral neuropathy. 13. Benign prostatic hypertrophy. In June 2018 he was found to have a low B12 level, and he did start B12 replacement. He also was found to have a mildly elevated TSH level, and he also started thyroid replacement. His repeat B12 level in August was actually high, and the B12 injections were subsequently stopped. As of October 2018 he opted to be admitted to the long term, and he then started hemodialysis. At that point his erythropoietin stimulating agent was changed to Mircera. During subsequent follow-up there was further decline in his hemoglobin, eventually stabilizing at 7.9 g. As of November 2018 he restarted Procrit, and he had a very good clinical response. He has continued monthly daratumumab infusions for the myeloma, and he has continued Procrit injections as needed with this target hemoglobin at 10 g. His protein electrophoresis studies had been showing a gradual increase in the M protein and in the kappa free light chain and in the kappa/lambda ratio. He was not overtly symptomatic with it, by with the progressive increase, Dr Pinto did recommend a change in his treatment regimen. We discussed several options and he ultimately decided to try adding back carfilzomib. He began cycle 1 of daratumumab in combination with carfilzomib and dexamethasone on 03/01/2020. He tolerated the day 1 and day 2 carfilzomib infusions without acute toxicity. He was then able to continue his further treatment on schedule, but he was not able to tolerate any escalation of the carfilzomib dosage due to moderately severe thrombocytopenia. He continued with cycle 2 on 03/29/2020. He continues to have moderately severe thrombocytopenia, but with his platelet count holding stable. There has been a mild increase in his liver enzymes. His M protein thus far has also remained stable. Plan: 1. Proceed with cycle 4 day 8 & 9 carfilzomib, and dexamethasone. The dosages will remain the same. He is on monthly Darzalex and it was given on . 2. Continue current antiemetics as they are working well. 3. Return in 1 week with CBC CMP for day 15 and 16 treatment. 4. Mr. Stephens is instructed to contact us in interim should questions or problems arise. 5. He will continue his Procrit/alternative agent at dialysis as his hemoglobin is improving. He began receiving it IV???as it was indicated and his hemoglobin has gone from 8.4-10.5. 6. Labs from 06/13/2020 were reviewed in detail and discussed with Mr. Stephens and a copy was given to him. WBC 3.6, hemoglobin 10.5, platelets 79,000 ANC is 2000. Potassium 4.7 LFTs reveal ALT at 47 AST of 41. His alk phos is normal at 84 and his total bilirubin is 0.5. 7. Mr. Stephens was instructed to contact us in interim should questions or problems arise. 8. He has been advised to watch for bleeding and advised on bleeding precautions as we are treating him with a platelet count of 79,000. We have treated him at this level before and is tolerated extremely well with no evidence of bleeding. Signed By: Ann Sheets <<Signature on File>>
== END 2020-06-14 05:58 | disposition home or self-care (01) ==
LOC: ONCMED 06:00
PROVIDERS: PCP Family Medicine; Visit Provider Nurse Practitioner
DX: C90.02 Multiple myeloma in relapse (principal); N18.6 End stage renal disease; D63.1 Anemia in chronic kidney disease; Z51.81 Encounter for therapeutic drug level monitoring; Z79.899 Other long term (current) drug therapy; Z99.2 Dependence on renal dialysis; I10 Essential (primary) hypertension; E78.5 Hyperlipidemia, unspecified; E11.42 Type 2 diabetes mellitus with diabetic polyneuropathy; N40.0 Benign prostatic hyperplasia without lower urinary tract symptoms; E53.8 Deficiency of other specified B group vitamins; Z94.84 Stem cells transplant status
CPT/HCPCS: 96361; 96367; 96413; 99214; J1100; J1200; J2405; J7040; J9047

== ENCOUNTER 2020-06-15 06:08 | Outpatient (CLI) | payer MEDICARE, OTHER, SELFPAY ==
[2020-06-15] MEDS: sodium chloride 0.9% 500 ML IV (08:25)
[2020-06-15] MEDS: dexamethasone 20 MG in sodium chloride 0.9% 50 ML 187 MG IV (08:55)
[2020-06-15] MEDS: palonosetron 0.25 mg/5 mL SDV IV (08:55)
== END 2020-06-15 06:09 | disposition home or self-care (01) ==
LOC: ONCMED 06:10
PROVIDERS: PCP Family Medicine; Visit Provider Nurse Practitioner
DX: Z51.11 Encounter for antineoplastic chemotherapy (principal); C90.02 Multiple myeloma in relapse; N18.6 End stage renal disease
CPT/HCPCS: 96367; 96413; J1100; J1200; J2469; J7040; J9047

== ENCOUNTER 2020-06-20 06:45 | Outpatient (CLI) | payer MEDICARE, OTHER, SELFPAY ==
[2020-06-20 12:47] LABS: Eosinophils # 0.1 10^3/uL (0.0-0.8); Eosinophils % 1.4 %; Hematocrit 32.2 % (42.0-52.0); Hemoglobin 10.3 g/dL (11.7-16.6); Lymphocytes # 1.1 10^3/uL (0.8-4.8); Lymphocytes % 26.3 %; Mean Corpuscular Hemoglobin 40.1 pg (28.0-34.0); Mean Corpuscular Volume 125.3 fL (80-94); Monocytes # 0.4 10^3/uL (0.2-0.9); Monocytes % 9.1 %; Nucleated Red Blood Cells % 0 %; Platelet Count 67 10^3/cmm (130-400); Red Blood Count 2.57 10^6/uL (4.1-5.3); Red Cell Distribution Width 18.6 % (12.1-15.1); White Blood Count 4.3 10^3/uL (4.0-10.0)
[2020-06-20 13:45] LABS: Alanine Aminotransferase 65 U/L (0-41); Alkaline Phosphatase 80 IU/L (40-130); Chloride 98 mmol/L (98-107); Potassium 4.5 mmol/L (3.5-5.1); Sodium 140 mmol/L (136-145)
[2020-06-20 14:33] LABS: Carbon Dioxide 26 mmol/L (22-29); Total Bilirubin 0.5 mg/dL (0.15-1.2); Total Protein 7.1 g/dL (6.6-8.7)
[2020-06-20 14:55] LABS: Albumin Level 3.4 g/dL (3.5-5.2); Anion Gap 20.5 (5-19); Globulin 3.7 g/dL (1.3-4.6)
[2020-06-20 14:57] LABS: Aspartate Amino Transferase 43 U/L (0-40); Calcium 8.2 mg/dL (8.5-10.5); Glucose 59 mg/dL (65-115)
[2020-06-20 14:58] LABS: Blood Urea Nitrogen 60 mg/dL (8-23); Osmolality Calculated 305 mOsm/kg (285-295)
== END 2020-06-20 06:46 | disposition home or self-care (01) ==
LOC: ONCMED 16:47
PROVIDERS: PCP Family Medicine; Visit Provider Nurse Practitioner
DX: C90.02 Multiple myeloma in relapse (principal); N18.6 End stage renal disease; Z99.2 Dependence on renal dialysis
CPT/HCPCS: 80053; 85025

== ENCOUNTER 2020-06-21 06:21 | Outpatient (CLI) | payer MEDICARE, OTHER, SELFPAY ==
[2020-06-21] MEDS: dexamethasone 20 MG in sodium chloride 0.9% 50 ML 187 MG IV (11:26)
== END 2020-06-21 06:22 | disposition home or self-care (01) ==
LOC: ONCMED 06:23
PROVIDERS: PCP Family Medicine; Visit Provider Nurse Practitioner
DX: Z51.11 Encounter for antineoplastic chemotherapy (principal); C90.02 Multiple myeloma in relapse; N18.6 End stage renal disease; Z99.2 Dependence on renal dialysis
CPT/HCPCS: 96361; 96367; 96413; J1100; J1200; J2405; J9047

== ENCOUNTER 2020-06-22 06:14 | Outpatient (CLI) | payer MEDICARE, OTHER, SELFPAY ==
[2020-06-22] MEDS: palonosetron 0.25 mg/5 mL SDV IV (08:20)
[2020-06-22] MEDS: sodium chloride 0.9% 1,000 ML 500 ML IV (08:25)
[2020-06-22] MEDS: dexamethasone 20 MG in sodium chloride 0.9% 50 ML 187 MG IV (08:55)
== END 2020-06-22 06:15 | disposition home or self-care (01) ==
LOC: ONCMED 06:15
PROVIDERS: PCP Family Medicine; Visit Provider Nurse Practitioner
DX: C90.02 Multiple myeloma in relapse (principal); N18.6 End stage renal disease; Z99.2 Dependence on renal dialysis
CPT/HCPCS: 96367; 96375; 96413; J1100; J1200; J2469; J7030; J9047

== ENCOUNTER 2020-07-04 06:48 | Outpatient (CLI) | payer MEDICARE, OTHER, SELFPAY ==
[2020-07-04 10:24] LABS: Basophils % 1.1 %; Eosinophils % 1.5 %; Hematocrit 32.2 % (42.0-52.0); Hemoglobin 10.2 g/dL (11.7-16.6); Lymphocytes # 0.8 10^3/uL (0.8-4.8); Lymphocytes % 30.9 %; Mean Corpuscular HGB Conc 31.7 g/dL (30.0-36.0); Mean Corpuscular Volume 129.3 fL (80-94); Mean Platelet Volume 11.6 fL (7.4-10.4); Monocytes # 0.4 10^3/uL (0.2-0.9); Neutrophils # 1.39 10^3/uL (1.8-7.7); Neutrophils % 52.5 %; Nucleated Red Blood Cells % 0 %; Platelet Count 87 10^3/cmm (130-400); Red Blood Count 2.49 10^6/uL (4.1-5.3); Red Cell Distribution Width 18.8 % (12.1-15.1); White Blood Count 2.7 10^3/uL (4.0-10.0)
[2020-07-04 10:53] LABS: Alanine Aminotransferase 31 U/L (0-41); Albumin Level 3.6 g/dL (3.5-5.2); Alkaline Phosphatase 78 IU/L (40-130); Aspartate Amino Transferase 24 U/L (0-40); Blood Urea Nitrogen 39 mg/dL (8-23); Calcium 8.5 mg/dL (8.5-10.5); Carbon Dioxide 30 mmol/L (22-29); Chloride 97 mmol/L (98-107); Globulin 3.9 g/dL (1.3-4.6); Glucose 68 mg/dL (65-115); Osmolality Calculated 302 mOsm/kg (285-295); Sodium 142 mmol/L (136-145); Total Bilirubin 0.4 mg/dL (0.15-1.2); Total Protein 7.5 g/dL (6.6-8.7)
[2020-07-04 11:06] LABS: Anion Gap 19.9 (5-19); Potassium 4.9 mmol/L (3.5-5.1)
[2020-07-04 11:08] LABS: Immunoglobulin IGA 2485 mg/dL (70-400); Immunoglobulin IGG 138 mg/dL (700-1600); Immunoglobulin IGM 7 mg/dL (40-230)
[2020-07-05 10:02] LABS: PROTEIN, TOTAL 7.2 g/dL (6.1-8.1)
[2020-07-05 12:33] LABS: KAPPA LIGHT CHAIN, FREE, SERUM 102.7 mg/L (3.3-19.4); KAPPA/LAMBDA LIGHT CHAINS FREE 60.41 (0.26-1.65); LAMBDA LIGHT CHAIN, FREE, SERU 1.7 mg/L (5.7-26.3)
[2020-07-05 13:38] LABS: ABNORMAL PROTEIN BAND 1 1.8 g/dL (NONE DETECTED); ALBUMIN 3.4 g/dL (3.8-4.8); ALPHA 1 GLOBULIN 0.3 g/dL (0.2-0.3); ALPHA 2 GLOBULIN 0.6 g/dL (0.5-0.9); BETA 1 GLOBULIN 0.3 g/dL (0.4-0.6); BETA 2 GLOBULIN 0.4 g/dL (0.2-0.5); GAMMA GLOBULIN 2.3 g/dL (0.8-1.7)
== END 2020-07-04 06:49 | disposition home or self-care (01) ==
LOC: ONCMED 13:48
PROVIDERS: PCP Family Medicine; Visit Provider Nurse Practitioner
DX: C90.02 Multiple myeloma in relapse (principal); N18.6 End stage renal disease; Z99.2 Dependence on renal dialysis
CPT/HCPCS: 80053; 82784; 83883; 84155; 84165; 85025

== ENCOUNTER 2020-07-05 06:33 | Outpatient (CLI) | payer MEDICARE, OTHER, SELFPAY ==
[2020-07-05] MEDS: sodium chloride 0.9% 500 ML 999 ML IV (10:45)
[2020-07-05] MEDS: dexamethasone 20 MG in sodium chloride 0.9% 50 ML 187 MG IV (11:00)
[2020-07-05] MEDS: acetaminophen 325 mg Tablet 650 MG PO (11:00)
== END 2020-07-05 06:34 | disposition home or self-care (01) ==
LOC: ONCMED 06:35
PROVIDERS: PCP Family Medicine; Visit Provider Nurse Practitioner
DX: Z51.11 Encounter for antineoplastic chemotherapy (principal); C90.02 Multiple myeloma in relapse; N18.6 End stage renal disease; Z99.2 Dependence on renal dialysis; D47.2 Monoclonal gammopathy
CPT/HCPCS: 96361; 96367; 96413; 96415; 96417; J1100; J1200; J2405; J7040; J9047; J9145

== ENCOUNTER 2020-07-06 05:50 | Outpatient (CLI) | payer MEDICARE, OTHER, SELFPAY ==
[2020-07-06] MEDS: sodium chloride 0.9% 500 ML 75 ML IV (08:00)
[2020-07-06] MEDS: dexamethasone 20 MG in sodium chloride 0.9% 50 ML 188 MG IV (08:15)
[2020-07-06] MEDS: palonosetron 0.25 mg/5 mL SDV IV (08:30)
== END 2020-07-06 05:51 | disposition home or self-care (01) ==
LOC: ONCMED 05:52
PROVIDERS: PCP Family Medicine; Visit Provider Internal Medicine Medical Oncology
DX: Z51.11 Encounter for antineoplastic chemotherapy (principal); C90.02 Multiple myeloma in relapse; N18.6 End stage renal disease; D47.2 Monoclonal gammopathy
CPT/HCPCS: 96367; 96413; J1100; J1200; J2469; J7040; J9047

== ENCOUNTER 2020-07-11 06:50 | Outpatient (CLI) | payer MEDICARE, OTHER, SELFPAY ==
[2020-07-11 09:45] LABS: Basophils % 0.4 %; Eosinophils % 1.5 %; Hematocrit 33.1 % (42.0-52.0); Hemoglobin 10.5 g/dL (11.7-16.6); Lymphocytes # 0.9 10^3/uL (0.8-4.8); Mean Corpuscular HGB Conc 31.7 g/dL (30.0-36.0); Mean Corpuscular Hemoglobin 40.1 pg (28.0-34.0); Mean Corpuscular Volume 126.3 fL (80-94); Mean Platelet Volume 11.2 fL (7.4-10.4); Monocytes # 0.5 10^3/uL (0.2-0.9); Monocytes % 18.1 %; Neutrophils # 1.27 10^3/uL (1.8-7.7); Nucleated Red Blood Cells % 0 %; Platelet Count 70 10^3/cmm (130-400); Red Blood Count 2.62 10^6/uL (4.1-5.3); White Blood Count 2.7 10^3/uL (4.0-10.0)
== END 2020-07-11 06:51 | disposition home or self-care (01) ==
LOC: ONCMED 14:19
PROVIDERS: PCP Family Medicine; Visit Provider Internal Medicine Medical Oncology
DX: C90.02 Multiple myeloma in relapse (principal); N18.6 End stage renal disease; D47.2 Monoclonal gammopathy; Z99.2 Dependence on renal dialysis
CPT/HCPCS: 85025

== ENCOUNTER 2020-07-12 06:31 | Outpatient (CLI) | payer MEDICARE, OTHER, SELFPAY ==
[2020-07-12] MEDS: sodium chloride 0.9% 500 ML 999 ML IV (10:43)
[2020-07-12] MEDS: dexamethasone 20 MG in sodium chloride 0.9% 50 ML 187 MG IV (11:16)
== END 2020-07-12 06:32 | disposition home or self-care (01) ==
LOC: ONCMED 06:32
PROVIDERS: PCP Family Medicine; Visit Provider Internal Medicine Medical Oncology
DX: Z51.11 Encounter for antineoplastic chemotherapy (principal); C90.02 Multiple myeloma in relapse; N18.6 End stage renal disease; Z99.2 Dependence on renal dialysis; D47.2 Monoclonal gammopathy
CPT/HCPCS: 96361; 96367; 96413; J1100; J1200; J2405; J7040; J9047

== ENCOUNTER 2020-07-13 06:03 | Outpatient (CLI) | payer MEDICARE, OTHER, SELFPAY ==
[2020-07-13] MEDS: sodium chloride 0.9% 500 ML 999 ML IV (08:17)
[2020-07-13] MEDS: palonosetron 0.25 mg/5 mL SDV IV (08:34)
[2020-07-13] MEDS: dexamethasone 20 MG in sodium chloride 0.9% 50 ML 188 MG IV (08:34)
== END 2020-07-13 06:04 | disposition home or self-care (01) ==
LOC: ONCMED 06:05
PROVIDERS: PCP Family Medicine; Visit Provider Internal Medicine Medical Oncology
DX: Z51.11 Encounter for antineoplastic chemotherapy (principal); C90.02 Multiple myeloma in relapse; N18.6 End stage renal disease; Z99.2 Dependence on renal dialysis
CPT/HCPCS: 96361; 96367; 96413; J1100; J1200; J2469; J7040; J9047

== ENCOUNTER 2020-07-18 06:45 | Outpatient (CLI) | payer MEDICARE, OTHER, SELFPAY ==
[2020-07-18 13:39] LABS: Basophils % 0.3 %; Eosinophils % 1.1 %; Hematocrit 34.4 % (42.0-52.0); Hemoglobin 10.8 g/dL (11.7-16.6); Lymphocytes % 28.1 %; Mean Corpuscular HGB Conc 31.4 g/dL (30.0-36.0); Mean Corpuscular Hemoglobin 39.7 pg (28.0-34.0); Mean Corpuscular Volume 126.5 fL (80-94); Mean Platelet Volume 12.9 fL (7.4-10.4); Monocytes # 0.5 10^3/uL (0.2-0.9); Monocytes % 12.9 %; Neutrophils # 2.08 10^3/uL (1.8-7.7); Neutrophils % 57.3 %; Nucleated Red Blood Cells % 0 %; Platelet Count 75 10^3/cmm (130-400); Red Blood Count 2.72 10^6/uL (4.1-5.3); Red Cell Distribution Width 17.9 % (12.1-15.1); White Blood Count 3.6 10^3/uL (4.0-10.0)
[2020-07-18 14:17] LABS: Alanine Aminotransferase 34 U/L (0-41); Albumin Level 3.4 g/dL (3.5-5.2); Alkaline Phosphatase 75 IU/L (40-130); Anion Gap 20.4 (5-19); Aspartate Amino Transferase 26 U/L (0-40); Blood Urea Nitrogen 52 mg/dL (8-23); Calcium 8.3 mg/dL (8.5-10.5); Carbon Dioxide 29 mmol/L (22-29); Chloride 96 mmol/L (98-107); Globulin 3.6 g/dL (1.3-4.6); Glucose 54 mg/dL (65-115); Osmolality Calculated 302 mOsm/kg (285-295); Potassium 5.4 mmol/L (3.5-5.1); Sodium 140 mmol/L (136-145); Total Bilirubin 0.4 mg/dL (0.15-1.2)
== END 2020-07-18 06:46 | disposition home or self-care (01) ==
LOC: ONCMED 14:05
PROVIDERS: PCP Family Medicine; Visit Provider Internal Medicine Medical Oncology
DX: C90.02 Multiple myeloma in relapse (principal); N18.6 End stage renal disease; Z99.2 Dependence on renal dialysis
CPT/HCPCS: 80053; 85025

== ENCOUNTER 2020-07-19 06:31 | Outpatient (CLI) | payer MEDICARE, OTHER, SELFPAY | END 2020-07-19 06:32 | disposition home or self-care (01) | LOC: ONCMED 06:32 | PROVIDERS: PCP Family Medicine; Visit Provider Internal Medicine Medical Oncology | DX: C90.02 Multiple myeloma in relapse (principal); N18.6 End stage renal disease | CPT/HCPCS: 96361; 96367; 96413; J1100; J1200; J2405; J7040; J9047 ==

== ENCOUNTER 2020-07-20 05:59 | Outpatient (CLI) | payer MEDICARE, OTHER, SELFPAY ==
[2020-07-20] MEDS: sodium chloride 0.9% 500 ML 999 ML IV (08:10)
[2020-07-20] MEDS: dexamethasone 20 MG in sodium chloride 0.9% 50 ML 188 MG IV (09:10)
[2020-07-20] MEDS: palonosetron 0.25 mg/5 mL SDV IV (09:11)
== END 2020-07-20 06:00 | disposition home or self-care (01) ==
LOC: ONCMED 06:03
PROVIDERS: PCP Family Medicine; Visit Provider Nurse Practitioner
DX: Z51.11 Encounter for antineoplastic chemotherapy (principal); C90.02 Multiple myeloma in relapse; N18.6 End stage renal disease; Z99.2 Dependence on renal dialysis
CPT/HCPCS: 96361; 96367; 96413; J1100; J1200; J2469; J7040; J9047

== ENCOUNTER 2020-08-01 07:00 | Outpatient (CLI) | payer MEDICARE, OTHER, SELFPAY ==
[2020-08-01 09:26] LABS: Basophils % 0.6 %; Eosinophils # 0.1 10^3/uL (0.0-0.8); Eosinophils % 1.9 %; Hematocrit 34.2 % (42.0-52.0); Lymphocytes # 1.1 10^3/uL (0.8-4.8); Lymphocytes % 33.6 %; Mean Corpuscular HGB Conc 32.2 g/dL (30.0-36.0); Mean Corpuscular Hemoglobin 40.4 pg (28.0-34.0); Mean Corpuscular Volume 125.7 fL (80-94); Mean Platelet Volume 11.2 fL (7.4-10.4); Monocytes # 0.5 10^3/uL (0.2-0.9); Monocytes % 14.2 %; Neutrophils # 1.58 10^3/uL (1.8-7.7); Neutrophils % 49.7 %; Nucleated Red Blood Cells % 0 %; Platelet Count 80 10^3/cmm (130-400); Red Blood Count 2.72 10^6/uL (4.1-5.3); Red Cell Distribution Width 17.6 % (12.1-15.1); White Blood Count 3.2 10^3/uL (4.0-10.0)
[2020-08-01 09:32] LABS: Alanine Aminotransferase 30 U/L (0-41); Albumin Level 3.4 g/dL (3.5-5.2); Alkaline Phosphatase 71 IU/L (40-130); Anion Gap 18.1 (5-19); Aspartate Amino Transferase 18 U/L (0-40); Blood Urea Nitrogen 36 mg/dL (8-23); Calcium 8.6 mg/dL (8.5-10.5); Carbon Dioxide 31 mmol/L (22-29); Chloride 97 mmol/L (98-107); Globulin 4.3 g/dL (1.3-4.6); Glucose 81 mg/dL (65-115); Osmolality Calculated 299 mOsm/kg (285-295); Potassium 5.1 mmol/L (3.5-5.1); Sodium 141 mmol/L (136-145); Total Bilirubin 0.4 mg/dL (0.15-1.2); Total Protein 7.7 g/dL (6.6-8.7)
[2020-08-01 15:03] LABS: Immunoglobulin IGM 25 mg/dL (40-230)
[2020-08-01 15:24] LABS: Immunoglobulin IGA 2627 mg/dL (70-400); Immunoglobulin IGG < 300 mg/dL (700-1600)
[2020-08-02 13:14] LABS: KAPPA LIGHT CHAIN, FREE, SERUM 98.8 mg/L (3.3-19.4); LAMBDA LIGHT CHAIN, FREE, SERU <1.5 mg/L (5.7-26.3)
[2020-08-02 16:50] LABS: PROTEIN, TOTAL 7.4 g/dL (6.1-8.1)
[2020-08-03 15:27] LABS: ALBUMIN 3.4 g/dL (3.8-4.8); ALPHA 1 GLOBULIN 0.3 g/dL (0.2-0.3); ALPHA 2 GLOBULIN 0.6 g/dL (0.5-0.9); BETA 1 GLOBULIN 0.3 g/dL (0.4-0.6); BETA 2 GLOBULIN 0.4 g/dL (0.2-0.5); GAMMA GLOBULIN 2.4 g/dL (0.8-1.7)
== END 2020-08-01 07:01 | disposition home or self-care (01) ==
LOC: ONCMED 13:51
PROVIDERS: PCP Family Medicine; Visit Provider Internal Medicine Medical Oncology
DX: C90.02 Multiple myeloma in relapse (principal); N18.6 End stage renal disease
CPT/HCPCS: 80053; 82784; 83883; 84155; 84165; 85025

== ENCOUNTER 2020-08-02 06:20 | Outpatient (CLI) | payer MEDICARE, OTHER, SELFPAY ==
[2020-08-02] MEDS: acetaminophen 325 mg Tablet 650 MG PO (11:10)
[2020-08-02] MEDS: ondansetron 2 mg/ML SDV 2 mL 8 MG IV (11:10)
[2020-08-02] MEDS: diphenhydrAMINE 50 mg/mL SDV 1mL IV (11:12)
[2020-08-02] MEDS: sodium chloride 0.9% 500 ML 999 ML IV (11:15)
[2020-08-02] MEDS: dexamethasone 20 MG in sodium chloride 0.9% 50 ML 187 MG IV (11:31)
== END 2020-08-02 06:21 | disposition home or self-care (01) ==
LOC: ONCMED 06:22
PROVIDERS: PCP Family Medicine; Visit Provider Internal Medicine Medical Oncology
DX: Z51.12 Encounter for antineoplastic immunotherapy (principal); Z51.11 Encounter for antineoplastic chemotherapy; C90.02 Multiple myeloma in relapse; N18.6 End stage renal disease; Z99.2 Dependence on renal dialysis; D47.2 Monoclonal gammopathy
CPT/HCPCS: 96361; 96367; 96375; 96413; 96415; 96417; J1100; J1200; J2405; J7040; J9047; J9145

== ENCOUNTER 2020-08-03 06:08 | Outpatient (CLI) | payer MEDICARE, OTHER, SELFPAY ==
[2020-08-03] MEDS: sodium chloride 0.9% 500 ML 999 ML IV (08:15)
[2020-08-03] MEDS: palonosetron 0.25 mg/5 mL SDV IV (08:35)
[2020-08-03] MEDS: dexamethasone 20 MG in sodium chloride 0.9% 50 ML 188 MG IV (08:40)
== END 2020-08-03 06:09 | disposition home or self-care (01) ==
LOC: ONCMED 06:10
PROVIDERS: PCP Family Medicine; Visit Provider Nurse Practitioner
DX: Z51.11 Encounter for antineoplastic chemotherapy (principal); C90.02 Multiple myeloma in relapse; N18.6 End stage renal disease; Z99.2 Dependence on renal dialysis; D47.2 Monoclonal gammopathy
CPT/HCPCS: 96361; 96367; 96413; J1100; J1200; J2469; J7040; J9047

== ENCOUNTER 2020-08-08 07:20 | Outpatient (CLI) | payer MEDICARE, OTHER, SELFPAY ==
[2020-08-08 10:06] LABS: Alanine Aminotransferase 28 U/L (0-41); Albumin Level 3.5 g/dL (3.5-5.2); Alkaline Phosphatase 68 IU/L (40-130); Anion Gap 19.9 (5-19); Aspartate Amino Transferase 22 U/L (0-40); Blood Urea Nitrogen 45 mg/dL (8-23); Calcium 8.6 mg/dL (8.5-10.5); Carbon Dioxide 29 mmol/L (22-29); Chloride 97 mmol/L (98-107); Glucose 66 mg/dL (65-115); Osmolality Calculated 302 mOsm/kg (285-295); Potassium 4.9 mmol/L (3.5-5.1); Sodium 141 mmol/L (136-145); Total Bilirubin 0.4 mg/dL (0.15-1.2); Total Protein 7.5 g/dL (6.6-8.7)
[2020-08-08 10:40] LABS: Basophils % 0.4 %; Eosinophils # 0.1 10^3/uL (0.0-0.8); Eosinophils % 2.2 %; Hematocrit 35.2 % (42.0-52.0); Hemoglobin 11.5 g/dL (11.7-16.6); Lymphocytes % 35.5 %; Mean Corpuscular HGB Conc 32.7 g/dL (30.0-36.0); Mean Corpuscular Hemoglobin 40.1 pg (28.0-34.0); Mean Corpuscular Volume 122.6 fL (80-94); Mean Platelet Volume 12.7 fL (7.4-10.4); Monocytes # 0.5 10^3/uL (0.2-0.9); Monocytes % 16.1 %; Neutrophils # 1.27 10^3/uL (1.8-7.7); Neutrophils % 45.4 %; Nucleated Red Blood Cells % 0 %; Platelet Count 76 10^3/cmm (130-400); Red Blood Count 2.87 10^6/uL (4.1-5.3); Red Cell Distribution Width 17.4 % (12.1-15.1); White Blood Count 2.8 10^3/uL (4.0-10.0)
[2020-08-08 13:08] LABS: Immunoglobulin IGA 2766 mg/dL (70-400)
[2020-08-08 13:13] LABS: Immunoglobulin IGM < 25 mg/dL (40-230)
[2020-08-08 13:14] LABS: Immunoglobulin IGG 131 mg/dL (700-1600)
[2020-08-09 11:02] LABS: PROTEIN, TOTAL 7.3 g/dL (6.1-8.1)
[2020-08-09 13:09] LABS: ALBUMIN 3.4 g/dL (3.8-4.8); ALPHA 1 GLOBULIN 0.3 g/dL (0.2-0.3); ALPHA 2 GLOBULIN 0.5 g/dL (0.5-0.9); BETA 1 GLOBULIN 0.3 g/dL (0.4-0.6); BETA 2 GLOBULIN 0.5 g/dL (0.2-0.5); GAMMA GLOBULIN 2.3 g/dL (0.8-1.7); KAPPA LIGHT CHAIN, FREE, SERUM 103.4 mg/L (3.3-19.4); LAMBDA LIGHT CHAIN, FREE, SERU <1.5 mg/L (5.7-26.3)
== END 2020-08-08 07:21 | disposition home or self-care (01) ==
LOC: ONCMED 16:30
PROVIDERS: PCP Family Medicine; Visit Provider Internal Medicine Medical Oncology
DX: C90.02 Multiple myeloma in relapse (principal); N18.6 End stage renal disease
CPT/HCPCS: 80053; 82784; 83883; 84155; 84165; 85025

== ENCOUNTER 2020-08-09 05:55 | Outpatient (CLI) | payer MEDICARE, OTHER, SELFPAY ==
[2020-08-09] MEDS: ondansetron 2 mg/ML SDV 2 mL 8 MG IV (11:06)
[2020-08-09] MEDS: sodium chloride 0.9% 250 ML 999 ML IV (11:06)
[2020-08-09] MEDS: diphenhydrAMINE 50 mg/mL SDV 1mL IV (11:08)
[2020-08-09] MEDS: dexamethasone 20 MG in sodium chloride 0.9% 50 ML 187 MG IV (11:20)
== END 2020-08-09 05:56 | disposition home or self-care (01) ==
LOC: ONCMED 05:56
PROVIDERS: PCP Family Medicine; Visit Provider Nurse Practitioner
DX: Z51.11 Encounter for antineoplastic chemotherapy (principal); C90.02 Multiple myeloma in relapse; N18.6 End stage renal disease; D47.2 Monoclonal gammopathy
CPT/HCPCS: 96367; 96375; 96413; J1100; J1200; J2405; J7050; J9047

== ENCOUNTER 2020-08-10 06:15 | Outpatient (CLI) | payer MEDICARE, OTHER, SELFPAY ==
[2020-08-10] MEDS: sodium chloride 0.9% (100 ml) 100 ML 50 ML (08:30)
[2020-08-10] MEDS: palonosetron 0.25 mg/5 mL SDV IV (08:35)
[2020-08-10] MEDS: dexamethasone 20 MG in sodium chloride 0.9% 50 ML 188 MG IV (08:35)
[2020-08-10] MEDS: diphenhydrAMINE 50 mg/mL SDV 1mL IV (08:55)
== END 2020-08-10 06:16 | disposition home or self-care (01) ==
LOC: ONCMED 06:16
PROVIDERS: PCP Family Medicine; Visit Provider Internal Medicine Medical Oncology
DX: Z51.11 Encounter for antineoplastic chemotherapy (principal); C90.02 Multiple myeloma in relapse; N18.6 End stage renal disease; Z99.2 Dependence on renal dialysis; D47.2 Monoclonal gammopathy
CPT/HCPCS: 96367; 96375; 96413; J1100; J1200; J2469; J9047

== ENCOUNTER 2020-08-15 07:18 | Outpatient (CLI) | payer MEDICARE, OTHER, SELFPAY ==
[2020-08-15 07:53] LABS: Eosinophils # 0.1 10^3/uL (0.0-0.8); Eosinophils % 1.3 %; Hematocrit 36.9 % (42.0-52.0); Hemoglobin 11.9 g/dL (11.7-16.6); Lymphocytes # 1.1 10^3/uL (0.8-4.8); Lymphocytes % 25.4 %; Mean Corpuscular HGB Conc 32.2 g/dL (30.0-36.0); Mean Corpuscular Hemoglobin 40.6 pg (28.0-34.0); Mean Corpuscular Volume 125.9 fL (80-94); Mean Platelet Volume 12.7 fL (7.4-10.4); Monocytes # 0.5 10^3/uL (0.2-0.9); Monocytes % 12.1 %; Neutrophils # 2.71 10^3/uL (1.8-7.7); Nucleated Red Blood Cells % 0 %; Platelet Count 68 10^3/cmm (130-400); Red Blood Count 2.93 10^6/uL (4.1-5.3); Red Cell Distribution Width 17.3 % (12.1-15.1); White Blood Count 4.5 10^3/uL (4.0-10.0)
[2020-08-15 08:14] LABS: Alanine Aminotransferase 30 U/L (0-41); Albumin Level 3.6 g/dL (3.5-5.2); Alkaline Phosphatase 67 IU/L (40-130); Anion Gap 19.3 (5-19); Aspartate Amino Transferase 29 U/L (0-40); Blood Urea Nitrogen 55 mg/dL (8-23); Calcium 8.6 mg/dL (8.5-10.5); Carbon Dioxide 30 mmol/L (22-29); Chloride 96 mmol/L (98-107); Globulin 3.9 g/dL (1.3-4.6); Glucose 91 mg/dL (65-115); Osmolality Calculated 305 mOsm/kg (285-295); Potassium 5.3 mmol/L (3.5-5.1); Sodium 140 mmol/L (136-145); Total Bilirubin 0.6 mg/dL (0.15-1.2); Total Protein 7.5 g/dL (6.6-8.7)
[2020-08-15 13:08] LABS: Immunoglobulin IGA 2702 mg/dL (70-400); Immunoglobulin IGG < 300 mg/dL (700-1600); Immunoglobulin IGM < 25 mg/dL (40-230)
[2020-08-16 10:44] LABS: PROTEIN, TOTAL 7.2 g/dL (6.1-8.1)
[2020-08-16 11:13] LABS: KAPPA LIGHT CHAIN, FREE, SERUM 101.2 mg/L (3.3-19.4); LAMBDA LIGHT CHAIN, FREE, SERU <1.5 mg/L (5.7-26.3)
[2020-08-16 15:48] LABS: ABNORMAL PROTEIN BAND 1 2.1 g/dL (NONE DETECTED); ALBUMIN 3.4 g/dL (3.8-4.8); ALPHA 1 GLOBULIN 0.3 g/dL (0.2-0.3); ALPHA 2 GLOBULIN 0.5 g/dL (0.5-0.9); BETA 1 GLOBULIN 0.3 g/dL (0.4-0.6); BETA 2 GLOBULIN 0.4 g/dL (0.2-0.5); GAMMA GLOBULIN 2.4 g/dL (0.8-1.7)
== END 2020-08-15 07:19 | disposition home or self-care (01) ==
LOC: ONCMED 07:33
PROVIDERS: PCP Family Medicine; Visit Provider Internal Medicine Medical Oncology
DX: C90.02 Multiple myeloma in relapse (principal); N18.6 End stage renal disease; D47.2 Monoclonal gammopathy; Z51.81 Encounter for therapeutic drug level monitoring; Z79.899 Other long term (current) drug therapy
CPT/HCPCS: 36415; 80053; 82784; 83883; 84155; 84165; 85025

== ENCOUNTER 2020-08-16 06:11 | Outpatient (CLI) | payer MEDICARE, OTHER, SELFPAY ==
[2020-08-16] MEDS: diphenhydrAMINE 50 mg/mL SDV 1mL IV (11:25)
[2020-08-16] MEDS: sodium chloride 0.9% (100 ml) 100 ML 75 ML (11:25)
[2020-08-16] MEDS: ondansetron 2 mg/ML SDV 2 mL 8 MG IV (11:30)
[2020-08-16] MEDS: dexamethasone 20 MG in sodium chloride 0.9% 50 ML 188 MG IV (11:30)
--- NOTE | 2020-08-20 23:24 | ONC FU_ITS ---
[facility] Patient Note Patient: Larry Stephens Unit #: [id number]: 1945 Dictated By: Ann SheetsDate of Visit: Aug 16, 2020 Onc MED Follow-Up/Prog Note Chief Complaint: Multiple myeloma. History of Present Illness: Mr Stephens is a 75 year-old man with relapsed IgA kappa myeloma. He has associated end-stage renal disease and anemia. He had pre-existing hypertension, hyperlipidemia, and type II diabetes. He had developed stage III chronic kidney disease following a colonoscopy prep. He had been seeing Dr. Miguelangel Cha for his nephrology follow-up care, and he was then found to have evidence of IgA kappa monoclonal gammopathy in October 2010. He was initially seen here by Dr. Plasencia in September 2011. At that point his protein electrophoresis showed IgA kappa monoclonal protein quantitating at 1.3 g/dL with 0.2 g/dL of free kappa monoclonal protein. UPEP was reportedly unrevealing. Bone marrow aspiration/biopsy showed 12% plasma cells. 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 There was no evidence of lytic bone involvement. His baseline creatinine was 1.8 mg/dL. He was treated initially with 3 cycles of Velcade/dexamethasone between October and December 2011. He required a dose reduction in the Velcade due to neuropathy. His repeat bone marrow aspiration/biopsy at [facility] on 01/01/2012 showed increase in the plasma cells to 17%. He then continued treatment at [facility] with autologous peripheral stem cell transplant in January 2012, I assume with high-dose melphalan, though it is not stated in the available records. The procedure was complicated by sepsis and acute renal failure requiring hemodialysis. He had subsequent relapse of the myeloma. His further treatment included 10 cycles of carfilzomib and dexamethasone beginning in May 2015. It was changed to carfilzomib, Revlimid, and dexamethasone beginning in January 2016 due to disease progression. Following further disease progression, his treatment was transitioned to carfilzomib, pomalidomide, and dexamethasone. As of October 2016, due to progressive kidney disease concerning for progressive myeloma, his treatment was changed to daratumumab, Revlimid, and dexamethasone. The Revlimid and dexamethasone were subsequently omitted due to toxicities, and he has since then continued daratumumab as a single agent. It has been administered on a monthly schedule. During this time his kidney function had progressed to end-stage renal disease, and he is on home peritoneal dialysis. He had been receiving treatment at [facility]. He was seen here in October 2017 because he desired to continue his further treatment locally. Following his initial visit he continued monthly daratumumab infusions with no apparent adverse effects and no obvious progression of the myeloma. His hemoglobin/hematocrit levels remained stable above transfusion thresholds. On 06/25/2018 he was seen in the emergency room with increasing weakness. On evaluation, he was found to have a low B12 level at 168 pg/mL, and his TSH level was found to be elevated at 13.500 mIU/mL. He started B12 injections, and he also started thyroid replacement. As of 07/22/2018 there was further decline in the hemoglobin to 8.6 g, and at that point he did start treatment with Procrit. He had a very good response with his hemoglobin increasing to 12.2 g after 2 weekly injections. As of October 2018 he had opted to be admitted to the intermediate, and he then began hemodialysis. At that point his erythropoietin stimulating agent was changed to Mircera. He then became progressively more anemic. As of 12/02/2018 his hemoglobin had stabilized at 7.9 g. He then restarted Procrit on 12/17/2018. During this time, he also had continued his monthly daratumumab infusions. His anemia did improve after restarting the Procrit. During follow-up his clinical status had otherwise remained stable. His protein electrophoresis had continued to show a very small M protein spike. There had been no significant change in his serum free light chains. 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 His medical illnesses, in addition to myeloma and renal failure, include hypertension, hyperlipidemia, type II diabetes with peripheral neuropathy, and benign prostatic hypertrophy. He is a nonsmoker. INTERIM HISTORY: He then continued on his monthly daratumumab infusions. As of 12/09/2019 he received cycle 38 of daratumumab. He had been tolerating the treatment well and his clinical status had been stable. However, he had been showing a very gradual increase in his M protein, in the kappa free light chain, and in the kappa/lambda ratio. I had discussed options for further treatment, and we ultimately decided to just try adding back carfilzomib. He began cycle 1 of daratumumab in combination with carfilzomib and dexamethasone on 03/01/2020. He tolerated the day 1 and day 2 carfilzomib infusions without acute toxicity. He was then able to continue with his day 7/8 and day 15/16 carfilzomib infusions on schedule, but he was not able to tolerate any dose escalation due to moderately severe thrombocytopenia. He continued with cycle 2 on 03/29/2020 with the carfilzomib dosage unchanged. Mr. Stephens is here today for follow-up. He is here for cycle 6 Day 15 & 16 carfilzomib. He had a 2-week delay due to thrombocytopenia and neutropenia with cycle 4. His ANC was 930 and his platelets were 82,000. They did improve to an acceptable level and he began cycle 4 on 06/07/2020. He has been able to stay on schedule since that delay. He states overall he feels really good. He has no new concerns. He denies any fever or chills. He has had no signs or symptoms of infection. He denies any COVID symptoms, he states that the residential center he is has COVID all over the place . However he has not had any symptoms or had any personal testing at this time. He continues to do dialysis 3 days a week and is tolerating this well. He denies any bleeding from his fistula. He states his appetite is good. He denies mouth sores. His energy is limited due to lack of exerise just because of the shut down/lock-in . He states he is not been able to do as much exercise as he normally does due to the restrictions at the residential center/assisted living facility because of the COVID exposure. He denies any new pain. He denies any changes in his bowels - they are working just fine . He denies any neuropathy. His ECOG is 1. Past Medical History: Benign prostatic hypertrophy End stage renal disease on home peritoneal dialysis Hyperlipidemia Hypertension Multiple myeloma Type II diabetes with peripheral neuropathy Past Surgical History: Placement of peritoneal diaysis catheter Placement of portacath venous access device Fistula in left arm in 2019 Prevnar 13 in 2018 Cataract excision in 2016 Right inguinal hernia repair in 2007 Cholecystectomy in 1983 Allergies: Bactrim, Codeine Sulfate, Sulfa Antibiotics, TraMADol HCl, and Verapamil HCl. Medications: Acetaminophen 2 Tablet (of 325 mg) Oral four times a day PRN Acyclovir 1 Tablet (of 400 mg) Oral daily Albuterol Sulfate 1 Vial(s) (of (2.5 mg/3ml) 0.083%) Nebulization solution Inhalation t.i.d. PRN Albuterol Sulfate 1 Inhalation (of 108 (90 base) mcg/act) Aerosol Powder, Breath Activated Inhalation q 4 hours Allopurinol 1 Tablet (of 100 mg) Oral daily ALPRAZolam 1 Tablet (of 0.25 mg) Oral at bedtime amLODIPine Besylate 1 Tablet (of 2.5 mg) Oral daily Bisacodyl EC 2 Tablet (of 5 mg) Tablet, enteric coated Oral daily PRN Calcium Acetate 1 Capsule (of 667 mg) Oral t.i.d. Cholecalciferol Tablet Oral Cipro 1 Tablet (of 500 mg) Oral b.i.d. Fluconazole 1 Tablet (of 100 mg) Oral daily Furosemide 1 Tablet (of 80 mg) Oral daily Gentamicin Sulfate 1 (0.1 %) Cream Topical at bedtime Levothyroxine Sodium 1 Tablet (of 50 mcg) Oral daily Loperamide HCl 1 - 2 Tablet (of 2 mg) Oral PRN Lovastatin 1 (40 mg) Tablet Oral at bedtime Mucinex 1 Tablet (of 600 mg) Tablet SR 12 HR Oral b.i.d. PRN Prochlorperazine Maleate 1 Tablet (of 10 mg) Oral q 6 hours PRN Requip 1 Tablet (of 0.5 mg) Oral b.i.d. Tamsulosin HCl 1 Tablet (of 0.4 mg) Capsule Oral b.i.d. Vital-D Rx 1 Tablet (of 1 mg) Oral daily Family History: Mr. Stephens's mother at age 82: Breast Cancer at age 70. Mr. Stephens's father at age 40. Mr. Stephens's maternal grandmother at age 80: cancer history consists of Breast cancer at age 80 (cause of ). Father at age 40, cause unknown to the patient. Mother of breast cancer at age 82. His maternal grandmother also had breast cancer. Social History: Mr. Stephens is and he is retired. Mr. Stephens has never smoked. He has no history of drinking. He is a nonsmoker. He does not drink alcohol. Review Of Symptoms: Constitutional Denies fevers, chills, night sweats, excessive fatigue or weight loss. Allergic/Immunologic No reactions. Eyes Denies significant visual changes. No diplopia. No amaurosis. ENMT Denies changes in hearing, sore throat, mouth sores, difficulty or changes in swallowing ability, and/or sinus drainage. Hematologic/Lymphatic Denies any new bruising or bleeding. The patient denies any tender or palpable lymph nodes. Respiratory Denies dyspnea on exertion, chest pain, cough or hemoptysis. Denies orthopnea. Cardiovascular Denies anginal chest pain, palpitations or orthopnea. Gastrointestinal Denies nausea, vomiting, GI bleeding, or constipation. Denies change in bowel habits and/or stool color, no heartburn or early satiety. Genitourinary (M) Denies hematuria, dysuria, increased frequency, urgency, hesitancy or incontinence. Musculoskeletal Denies joint pain, swelling or redness. No decreased range of motion. Integumentary Denies chronic rashes, inflammation, ulcerations or skin changes. Neurologic Denies headache, blurred vision, and no areas of focal weakness or numbness. Normal gait. No sensory problems. Psychiatric Denies worsening insomnia-using Benadryl and Melatonin prn. Denies depression, brielle or mood swings. Vital Signs: Performed on Aug 16, 2020 10:48 Height - 69.00 in Weight - 142.2 lbs BSA - 1.79 sq.m BMI - 21.00 Temperature - 97.8 F (LOW) Pulse - 60 /min Respiration - 18 /min BP - 123/56 mm(hg) O2 Sat - 99 % Pain - 0,1 - No physically strenuous activity, but ambulatory and able to carry out light or sedentary work (e.g. office work, light house work). (ECOG) Physical Examination: Constitutional Alert, oriented, no acute distress. Skin pink, warm and dry. Head Normocephalic; atraumatic. Eyes Conjunctivae and sclerae are clear and without icterus. Neck Supple without masses or thyromegaly. No jugular venous distension. Hematologic/Lymphatic No petechiae or purpura. Some bruising on hands-chronic Respiratory Lungs are clear to auscultation without rhonchi or wheezing. Cardiovascular Regular rate and rhythm of heart without murmurs,clicks, gallops or rubs. Abdomen Non-tender, non-distended, no masses, Back/Spine Non-tender to palpation. Extremities No visible deformities, no cyanosis, clubbing or edema. Left arm fistula is unremarkable-no active bleeding and no significant bruising. Musculoskeletal No tenderness or swelling, normal range of motion without obvious weakness. Integumentary No rashes or lesions. Extensive ecchymosis on both arms which is not new. Neurologic No sensory or motor deficits, normal cerebellar function, normal gait. Psychiatric Alert and oriented times three. Coherent speech. Verbalizes understanding of our discussions today. Laboratory:Test performed on Aug 08, 2020 07:20 Sodium 141 mmol/L Potassium 4.9 mmol/L Chloride 97 mmol/L CO2 29 mmol/L Anion Gap 19.9 BUN 45 mg/dL Creatinine 5.2 mg/dL Cr Clearance (Est) 11.8700 mL/min Glucose 66 mg/dL Osmolality - Calculated 302 mOsm/kg Calcium 8.6 mg/dL Protein, Total 7.5 g/dL Albumin 3.5 g/dL Globulin 4.0 g/dL Bilirubin, Total 0.4 mg/dL ALT (SGPT) 28 U/L AST (SGOT) 22 U/L Alkaline Phosphatase 68 IU/L WBC 2.8 10 3/uL RBC 2.87 10 6/uL HGB 11.5 g/dL HCT 35.2 % MCV 122.6 fL MCH 40.1 pg MCHC 32.7 g/dL RDW 17.4 % Platelet Count 76 10 3/cmm MPV 12.7 fL Neutrophils 1.27 10 3/uL Lymphocytes 1.0 10 3/uL Monocytes 0.5 10 3/uL Eosinophils 0.1 10 3/uL Basophils 0.0 10 3/uL Neutrophil % 45.4 % Lymphocyte % 35.5 % Monocyte % 16.1 % Eosinophil % 2.2 % Basophils % 0.4 % NRBC % 0 % IgG 131 mg/dL [place] Free Light Chains 103.4 mg/L Lambda Free Light Chains < 1.5 mg/L IgA 2766 mg/dL [place]/Lambda Free Ratio > 68.93 IgM < 25 mg/dL Test performed on Aug 02, 2020 15:48 TSH 3rd Generation 0.803 million units/mL Ferritin 1464 ng/mL Magnesium 2.4 mg/dL PTH, Intact 178 pg/mL % Iron Saturation 41 % Iron, Total 78 mcg/dL TIBC 191 mcg/dL BUN/Creatinine Ratio 9.8 Absolute Value A/G Ratio 0.9 Absolute Value Hemoglobin A1C 4.7 % Manual Lymphocytes 34.5 % Manual Monocytes 8.6 % Manual Eosinophils 1.7 % Manual Basophils 0.2 % Test performed on Jul 05, 2020 00:00 Hepatitis B Surface Ag Negative Test performed on Jun 08, 2020 14:18 Phosphorous 6.3 mg/dL Impression: 1. Patient with IgA kappa myeloma, initially diagnosed in September 2011. He has associated end-stage renal disease and anemia. 2. He had disease progression following initial treatment with 3 cycles of Velcade/dexamethasone completed in December 2011. 3. He underwent autologous peripheral stem cell transplant at [facility] in January 2012, complicated by sepsis and acute renal failure requiring hemodialysis. 4. Following disease recurrence he had further treatment with 10 cycles of carfilzomib and dexamethasone beginning in May 2015. 5. Following disease progression he had further treatment with carfilzomib, Revlimid, and dexamethasone beginning in January 2016, and subsequently with carfilzomib, pomalidomide, and dexamethasone. 6. He then had further decline in kidney function with progression to end-stage renal disease, concerning for progressive myeloma. He began treatment with daratumumab, Revlimid, and dexamethasone beginning in October 2016. His treatment was later transitioned to single agent daratumumab due to toxicities with Revlimid and dexamethasone. He is now receiving daratumumab infusions on a monthly schedule. 7. He has been on daily home peritoneal dialysis for the end-stage renal disease, but he is on hemodialysis. 8. 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 In April 2018 he had started treatment with Procrit, and thus far he has had a good clinical response. 9. He has associated hypogammaglobulinemia, but he has not been symptomatic with it. His other medical illnesses include: 10. Hypertension. 11. Hyperlipidemia. 12. Type II diabetes with peripheral neuropathy. 13. Benign prostatic hypertrophy. In June 2018 he was found to have a low B12 level, and he did start B12 replacement. He also was found to have a mildly elevated TSH level, and he also started thyroid replacement. His repeat B12 level in August was actually high, and the B12 injections were subsequently stopped. As of October 2018 he opted to be admitted to the intermediate, and he then started hemodialysis. At that point his erythropoietin stimulating agent was changed to Mircera. During subsequent follow-up there was further decline in his hemoglobin, eventually stabilizing at 7.9 g. As of November 2018 he restarted Procrit, and he had a very good clinical response. He has continued monthly daratumumab infusions for the myeloma, and he has continued Procrit injections as needed with this target hemoglobin at 10 g. His protein electrophoresis studies had been showing a gradual increase in the M protein and in the kappa free light chain and in the kappa/lambda ratio. He was not overtly symptomatic with it, by with the progressive increase, Dr Pinto did recommend a change in his treatment regimen. We discussed several options and he ultimately decided to try adding back carfilzomib. He began cycle 1 of daratumumab in combination with carfilzomib and dexamethasone on 03/01/2020. He tolerated the day 1 and day 2 carfilzomib infusions without acute toxicity. He was then able to continue his further treatment on schedule, but he was not able to tolerate any escalation of the carfilzomib dosage due to moderately severe thrombocytopenia. He continued with cycle 2 on 03/29/2020. He continues to have moderately severe thrombocytopenia, but with his platelet count holding stable. There has been a mild increase in his liver enzymes. His M protein thus far has also remained stable. Plan: 1. Proceed with cycle 6 day 15 & 16 carfilzomib, and dexamethasone. The dosages will remain the same. He is on monthly Darzalex and it was given on 08/02/2020. 2. Continue current antiemetics as they are working well. 3. Return in 2 weeks with CBC CMP, SPEP with MEGHAN, QUIGS, [place] Free [place] chain assay for day1 & 2 of cycle 7 treatment. 4. Mr. Stephens was instructed to contact us in interim should questions or problems arise. 5. He will continue his Procrit/alternative agent at dialysis as his hemoglobin is improving. He began receiving it IV???as it was indicated and his hemoglobin has gone from 8.4-11.9. 6. Labs from 08/15/2020 were reviewed in detail and discussed with Mr. Stephens and a copy was given to him. WBC 4.5, hemoglobin 11.9, platelets 68,000, ANC is 2700 sodium 140, potassium 5.3 LFTs are normal his abnormal protein from 08/08/2020 is reported at 2.0. His gammaglobulin is 2.3. 7. Mr. Stephens was instructed to contact us in interim should questions or problems arise. 8. He has been advised to watch for bleeding and advised on bleeding precautions as we are treating him with a platelet count of 68,000. We have treated him at this level before and has tolerated extremely well with no evidence of bleeding. Signed By: Ann Sheets-, AOCNP Dustin Pinto MD <<Signature on File>>
== END 2020-08-16 06:12 | disposition home or self-care (01) ==
LOC: ONCMED 06:13
PROVIDERS: PCP Family Medicine; Visit Provider Nurse Practitioner
DX: Z51.11 Encounter for antineoplastic chemotherapy (principal); C90.02 Multiple myeloma in relapse; D47.2 Monoclonal gammopathy; E11.22 Type 2 diabetes mellitus with diabetic chronic kidney disease; N18.6 End stage renal disease; Z99.2 Dependence on renal dialysis; I12.0 Hypertensive chronic kidney disease with stage 5 chronic kidney disease or end stage renal disease; E11.42 Type 2 diabetes mellitus with diabetic polyneuropathy; E78.5 Hyperlipidemia, unspecified; N40.0 Benign prostatic hyperplasia without lower urinary tract symptoms; Z79.899 Other long term (current) drug therapy
CPT/HCPCS: 96367; 96375; 96413; 99214; J1100; J1200; J2405; J9047

== ENCOUNTER 2020-08-17 06:01 | Outpatient (CLI) | payer MEDICARE, OTHER, SELFPAY ==
[2020-08-17] MEDS: sodium chloride 0.9% (100 ml) 100 ML 75 ML (08:35)
[2020-08-17] MEDS: diphenhydrAMINE 50 mg/mL SDV 1mL IV (08:35)
[2020-08-17] MEDS: dexamethasone 20 MG in sodium chloride 0.9% 50 ML 187 MG IV (08:45)
[2020-08-17] MEDS: palonosetron 0.25 mg/5 mL SDV IV (08:45)
== END 2020-08-17 06:02 | disposition home or self-care (01) ==
LOC: ONCMED 06:03
PROVIDERS: PCP Family Medicine; Visit Provider Nurse Practitioner
DX: Z51.11 Encounter for antineoplastic chemotherapy (principal); C90.02 Multiple myeloma in relapse; D47.2 Monoclonal gammopathy; N18.6 End stage renal disease; Z99.2 Dependence on renal dialysis
CPT/HCPCS: 96367; 96375; 96413; J1100; J1200; J2469; J9047

== ENCOUNTER 2020-08-22 07:25 | Outpatient (CLI) | payer MEDICARE, OTHER, SELFPAY ==
[2020-08-22 10:24] LABS: Alanine Aminotransferase 23 U/L (0-41); Albumin Level 3.4 g/dL (3.5-5.2); Alkaline Phosphatase 63 IU/L (40-130); Anion Gap 19.5 (5-19); Aspartate Amino Transferase 18 U/L (0-40); Blood Urea Nitrogen 64 mg/dL (8-23); Calcium 8.1 mg/dL (8.5-10.5); Carbon Dioxide 28 mmol/L (22-29); Chloride 95 mmol/L (98-107); Globulin 3.6 g/dL (1.3-4.6); Glucose 88 mg/dL (65-115); Osmolality Calculated 302 mOsm/kg (285-295); Potassium 5.5 mmol/L (3.5-5.1); Sodium 137 mmol/L (136-145); Total Bilirubin 0.6 mg/dL (0.15-1.2)
[2020-08-22 14:23] LABS: Immunoglobulin IGA 2568 mg/dL (70-400); Immunoglobulin IGG 119 mg/dL (700-1600); Immunoglobulin IGM < 25 mg/dL (40-230)
[2020-08-23 10:12] LABS: PROTEIN, TOTAL 6.9 g/dL (6.1-8.1)
[2020-08-23 13:18] LABS: ALBUMIN 3.3 g/dL (3.8-4.8); ALPHA 1 GLOBULIN 0.3 g/dL (0.2-0.3); ALPHA 2 GLOBULIN 0.5 g/dL (0.5-0.9); BETA 1 GLOBULIN 0.3 g/dL (0.4-0.6); BETA 2 GLOBULIN 0.3 g/dL (0.2-0.5); GAMMA GLOBULIN 2.3 g/dL (0.8-1.7)
[2020-08-23 15:48] LABS: KAPPA LIGHT CHAIN, FREE, SERUM 108.4 mg/L (3.3-19.4); KAPPA/LAMBDA LIGHT CHAINS FREE 60.22 (0.26-1.65); LAMBDA LIGHT CHAIN, FREE, SERU 1.8 mg/L (5.7-26.3)
== END 2020-08-22 07:26 | disposition home or self-care (01) ==
LOC: ONCMED 13:33
PROVIDERS: PCP Family Medicine; Visit Provider Nurse Practitioner
DX: C90.02 Multiple myeloma in relapse (principal); D47.2 Monoclonal gammopathy; N18.6 End stage renal disease; Z99.2 Dependence on renal dialysis
CPT/HCPCS: 80053; 82784; 83883; 84155; 84165

== ENCOUNTER 2020-08-29 08:00 | Outpatient (CLI) | payer MEDICARE, OTHER, SELFPAY ==
[2020-08-29 09:39] LABS: Basophils % 0.5 %; Eosinophils # 0.1 10^3/uL (0.0-0.8); Eosinophils % 1.9 %; Hematocrit 33.5 % (42.0-52.0); Hemoglobin 10.6 g/dL (11.7-16.6); Lymphocytes # 1.2 10^3/uL (0.8-4.8); Lymphocytes % 32.1 %; Mean Corpuscular HGB Conc 31.6 g/dL (30.0-36.0); Mean Corpuscular Hemoglobin 40.5 pg (28.0-34.0); Mean Corpuscular Volume 127.9 fL (80-94); Mean Platelet Volume 10.4 fL (7.4-10.4); Monocytes # 0.5 10^3/uL (0.2-0.9); Monocytes % 13.5 %; Neutrophils # 1.95 10^3/uL (1.8-7.7); Neutrophils % 51.7 %; Nucleated Red Blood Cells % 0 %; Platelet Count 78 10^3/cmm (130-400); Red Blood Count 2.62 10^6/uL (4.1-5.3); Red Cell Distribution Width 17.9 % (12.1-15.1); White Blood Count 3.8 10^3/uL (4.0-10.0)
== END 2020-08-29 08:01 | disposition home or self-care (01) ==
LOC: ONCMED 12:52
PROVIDERS: PCP Family Medicine; Visit Provider Nurse Practitioner
DX: C90.02 Multiple myeloma in relapse (principal); D47.2 Monoclonal gammopathy; N18.6 End stage renal disease; Z99.2 Dependence on renal dialysis
CPT/HCPCS: 85025

== ENCOUNTER 2020-08-30 06:07 | Outpatient (CLI) | payer MEDICARE, OTHER, SELFPAY ==
[2020-08-30] MEDS: acetaminophen 325 mg Tablet 650 MG PO (14:25)
[2020-08-30] MEDS: ondansetron 2 mg/ML SDV 2 mL 8 MG IV (14:25)
[2020-08-30] MEDS: diphenhydrAMINE 50 mg/mL SDV 1mL IV (14:28)
[2020-08-30] MEDS: dexamethasone 20 MG in sodium chloride 0.9% 50 ML 187 MG IV (14:32)
--- NOTE | 2020-09-05 16:04 | ONC FU_ITS ---
[facility] Patient Note Patient: Larry Stephens Unit #: [id number]: 1945 Dictated By: Ann SheetsDate of Visit: Aug 30, 2020 Onc MED Follow-Up/Prog Note Chief Complaint: Multiple myeloma. History of Present Illness: Mr Stephens is a 75 year-old man with relapsed IgA kappa myeloma. He has associated end-stage renal disease and anemia. He had pre-existing hypertension, hyperlipidemia, and type II diabetes. He had developed stage III chronic kidney disease following a colonoscopy prep. He had been seeing Dr. Miguelangel Cha for his nephrology follow-up care, and he was then found to have evidence of IgA kappa monoclonal gammopathy in October 2010. He was initially seen here by Dr. Plasencia in September 2011. At that point his protein electrophoresis showed IgA kappa monoclonal protein quantitating at 1.3 g/dL with 0.2 g/dL of free kappa monoclonal protein. UPEP was reportedly unrevealing. Bone marrow aspiration/biopsy showed 12% plasma cells. 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 There was no evidence of lytic bone involvement. His baseline creatinine was 1.8 mg/dL. He was treated initially with 3 cycles of Velcade/dexamethasone between October and December 2011. He required a dose reduction in the Velcade due to neuropathy. His repeat bone marrow aspiration/biopsy at [facility] on 01/01/2012 showed increase in the plasma cells to 17%. He then continued treatment at [facility] with autologous peripheral stem cell transplant in January 2012, I assume with high-dose melphalan, though it is not stated in the available records. The procedure was complicated by sepsis and acute renal failure requiring hemodialysis. He had subsequent relapse of the myeloma. His further treatment included 10 cycles of carfilzomib and dexamethasone beginning in May 2015. It was changed to carfilzomib, Revlimid, and dexamethasone beginning in January 2016 due to disease progression. Following further disease progression, his treatment was transitioned to carfilzomib, pomalidomide, and dexamethasone. As of October 2016, due to progressive kidney disease concerning for progressive myeloma, his treatment was changed to daratumumab, Revlimid, and dexamethasone. The Revlimid and dexamethasone were subsequently omitted due to toxicities, and he has since then continued daratumumab as a single agent. It has been administered on a monthly schedule. During this time his kidney function had progressed to end-stage renal disease, and he has been on home peritoneal dialysis. He had been receiving treatment at [facility]. He was seen here in October 2017 because he desired to continue his further treatment locally. Following his initial visit he continued monthly daratumumab infusions with no apparent adverse effects and no obvious progression of the myeloma. His hemoglobin/hematocrit levels remained stable above transfusion thresholds. On 06/25/2018 he was seen in the emergency room with increasing weakness. On evaluation, he was found to have a low B12 level at 168 pg/mL, and his TSH level was found to be elevated at 13.500 mIU/mL. He started B12 injections, and he also started thyroid replacement. As of 07/22/2018 there was further decline in the hemoglobin to 8.6 g, and at that point he did start treatment with Procrit. He had a very good response with his hemoglobin increasing to 12.2 g after 2 weekly injections. As of October 2018 he had opted to be admitted to the snf, and he then began hemodialysis. At that point his erythropoietin stimulating agent was changed to Mircera. He then became progressively more anemic. As of 12/02/2018 his hemoglobin had stabilized at 7.9 g. He then restarted Procrit on 12/17/2018. During this time, he also had continued his monthly daratumumab infusions. His anemia did improve after restarting the Procrit. During follow-up his clinical status had otherwise remained stable. His protein electrophoresis had continued to show a very small M protein spike. There had been no significant change in his serum free light chains. 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 His medical illnesses, in addition to myeloma and renal failure, include hypertension, hyperlipidemia, type II diabetes with peripheral neuropathy, and benign prostatic hypertrophy. He is a nonsmoker. INTERIM HISTORY: He then continued on his monthly daratumumab infusions. As of 12/09/2019 he received cycle 38 of daratumumab. He had been tolerating the treatment well and his clinical status had been stable. However, he had been showing a very gradual increase in his M protein, in the kappa free light chain, and in the kappa/lambda ratio. Dr Pinto had discussed options for further treatment, and it was ultimately decided to just try adding back carfilzomib. He began cycle 1 of daratumumab in combination with carfilzomib and dexamethasone on 03/01/2020. He tolerated the day 1 and day 2 carfilzomib infusions without acute toxicity. He was then able to continue with his day 7/8 and day 15/16 carfilzomib infusions on schedule, but he was not able to tolerate any dose escalation due to moderately severe thrombocytopenia. He continued with cycle 2 on 03/29/2020 with the carfilzomib dosage unchanged. He has now completed 6 full cycles of carfilzomib. Multiple myeloma treatment history: 1. December 2011 3 cycles of Velcade/dexamethasone???disease progression. 2. Autologous peripheral stem cell transplant (presumed to be with high-dose melphalan) at [facility] in January 2012 complicated by sepsis and acute renal failure requiring hemodialysis. 3. Disease recurrence???May 2015 he began 10 cycles of carfilzomib and dexamethasone. 4. January 2016???disease progression???carfilzomib Revlimid dexamethasone during which the Revlimid was changed to pomalidomide and continued with carfilzomib pomalidomide and dexamethasone. 5. October 2016 end-stage renal disease concerning for progressive myeloma???he began treatment with daratumumab, Revlimid and dexamethasone and was later transitioned to single agent daratumumab due to toxicities with Revlimid and dexamethasone. 6. March 2020 daratumumab carfilzomib (without dose escaluation) and dexamethasone???complicated by moderately severe thrombocytopenia???current treatment as of 08/30/2020. Mr. Stephens is here today for follow-up. He is due for cycle 7 daratumumab, carfilzomib and dexamethasone. He states overall he continues to feel really good. He denies any new concerns. His energy is good. He denies any new pain. He states he is eating good. He states his performance status seems to be declining some as he is not able to get out and about as he had been prior to the COVID-19 pandemic and current restrictions. He denies any fever or chills. He has had no bleeding. He denies any fistula bleeding from his dialysis fistula. He states he is eating well. His bowels and bladder are normal. He denies any neuropathy at this time. He denies any lower extremity edema, shortness of breath or orthopnea. He denies any cough. His ECOG is 1. Past Medical History: Benign prostatic hypertrophy End stage renal disease on home peritoneal dialysis Hyperlipidemia Hypertension Multiple myeloma Type II diabetes with peripheral neuropathy Past Surgical History: Placement of peritoneal diaysis catheter Placement of portacath venous access device Fistula in left arm in 2018 Prevnar 13 in 2018 Cataract excision in 2015 Right inguinal hernia repair in 2007 Cholecystectomy in 1983 Allergies: Bactrim, Codeine Sulfate, Sulfa Antibiotics, TraMADol HCl, and Verapamil HCl. Medications: Acetaminophen 2 Tablet (of 325 mg) Oral four times a day PRN Acyclovir 1 Tablet (of 400 mg) Oral daily Albuterol Sulfate 1 Vial(s) (of (2.5 mg/3ml) 0.083%) Nebulization solution Inhalation t.i.d. PRN Albuterol Sulfate 1 Inhalation (of 108 (90 base) mcg/act) Aerosol Powder, Breath Activated Inhalation q 4 hours Allopurinol 1 Tablet (of 100 mg) Oral daily ALPRAZolam 1 Tablet (of 0.25 mg) Oral at bedtime amLODIPine Besylate 1 Tablet (of 2.5 mg) Oral daily Bisacodyl EC 2 Tablet (of 5 mg) Tablet, enteric coated Oral daily PRN Calcium Acetate 1 Capsule (of 667 mg) Oral t.i.d. Cipro 1 Tablet (of 500 mg) Oral b.i.d. Fluconazole 1 Tablet (of 100 mg) Oral daily Furosemide 1 Tablet (of 80 mg) Oral daily Gentamicin Sulfate 1 (0.1 %) Cream Topical at bedtime Levothyroxine Sodium 1 Tablet (of 50 mcg) Oral daily Loperamide HCl 1 - 2 Tablet (of 2 mg) Oral PRN Lovastatin 1 (40 mg) Tablet Oral at bedtime Mucinex 1 Tablet (of 600 mg) Tablet SR 12 HR Oral b.i.d. PRN Prochlorperazine Maleate 1 Tablet (of 10 mg) Oral q 6 hours PRN Requip 1 Tablet (of 0.5 mg) Oral b.i.d. Tamsulosin HCl 1 Tablet (of 0.4 mg) Capsule Oral b.i.d. Vital-D Rx 1 Tablet (of 1 mg) Oral daily Family History: Mr. Augusts mother at age 82: Breast Cancer at age 70. Mr. Stephens's father at age 40. Mr. Stephens's maternal grandmother at age 80: cancer history consists of Breast cancer at age 80 (cause of ). Father at age 40, cause unknown to the patient. Mother of breast cancer at age 82. His maternal grandmother also had breast cancer. Social History: Mr. Stephens is and he is retired. Mr. Stephens has never smoked. He has no history of drinking. He is a nonsmoker. He does not drink alcohol. Review Of Symptoms: Constitutional Denies fevers, chills, night sweats, excessive fatigue or weight loss. Allergic/Immunologic No reactions. Eyes Denies significant visual changes. No diplopia. No amaurosis. ENMT Denies changes in hearing, sore throat, mouth sores, difficulty or changes in swallowing ability, and/or sinus drainage. Endocrine No diabetes, thyroid disease or hormone replacement. Denies hot flashes or night sweats. Hematologic/Lymphatic Denies any new bruising or bleeding. The patient denies any tender or palpable lymph nodes. Respiratory Denies dyspnea on exertion, chest pain, cough or hemoptysis. Denies orthopnea. Cardiovascular Denies anginal chest pain, palpitations or orthopnea. Gastrointestinal Denies nausea, vomiting, GI bleeding, or constipation. Denies change in bowel habits and/or stool color, no heartburn or early satiety. Genitourinary (M) Denies hematuria, dysuria, increased frequency, urgency, hesitancy or incontinence. Musculoskeletal Denies joint pain, swelling or redness. No decreased range of motion. Integumentary Denies chronic rashes, inflammation, ulcerations or skin changes. Neurologic Denies headache, blurred vision, and no areas of focal weakness or numbness. Normal gait. No sensory problems. Psychiatric Denies worsening insomnia-using Benadryl and Melatonin prn. Denies depression, brielle or mood swings. Vital Signs: Performed on Aug 30, 2020 13:44 Height - 69.00 in Weight - 147.8 lbs (HIGH) BSA - 1.82 sq.m BMI - 21.83 Temperature - 97.7 F (LOW) Pulse - 72 /min Respiration - 19 /min BP - 112/54 mm(hg) O2 Sat - 99 % Pain - 0,1 - No physically strenuous activity, but ambulatory and able to carry out light or sedentary work (e.g. office work, light house work). (ECOG) Physical Examination: Constitutional Alert, oriented, no acute distress. Skin pink, warm and dry. Head Normocephalic; atraumatic. Eyes Conjunctivae and sclerae are clear and without icterus. Neck Supple without masses or thyromegaly. No jugular venous distension. Hematologic/Lymphatic No petechiae or purpura. Some bruising on hands-chronic Respiratory Lungs are clear to auscultation without rhonchi or wheezing. Cardiovascular Regular rate and rhythm of heart without murmurs,clicks, gallops or rubs. Abdomen Non-tender, non-distended, no masses, Back/Spine Non-tender to palpation. Extremities No visible deformities, no cyanosis, clubbing or edema. Left arm fistula is unremarkable-no active bleeding and no significant bruising. Musculoskeletal No tenderness or swelling, normal range of motion without obvious weakness. Integumentary No rashes or lesions. Extensive ecchymosis on both arms which is not new. Neurologic No sensory or motor deficits, normal cerebellar function, normal gait. Psychiatric Alert and oriented times three. Coherent speech. Verbalizes understanding of our discussions today. Laboratory:Test performed on Aug 15, 2020 07:18 Sodium 140 mmol/L Potassium 5.3 mmol/L Chloride 96 mmol/L CO2 30 mmol/L Anion Gap 19.3 BUN 55 mg/dL Creatinine 5.8 mg/dL Cr Clearance (Est) 10.6400 mL/min Glucose 91 mg/dL Osmolality - Calculated 305 mOsm/kg Calcium 8.6 mg/dL Protein, Total 7.5 g/dL Albumin 3.6 g/dL Globulin 3.9 g/dL Bilirubin, Total 0.6 mg/dL ALT (SGPT) 30 U/L AST (SGOT) 29 U/L Alkaline Phosphatase 67 IU/L WBC 4.5 10 3/uL RBC 2.93 10 6/uL HGB 11.9 g/dL HCT 36.9 % MCV 125.9 fL MCH 40.6 pg MCHC 32.2 g/dL RDW 17.3 % Platelet Count 68 10 3/cmm MPV 12.7 fL Neutrophils 2.71 10 3/uL Lymphocytes 1.1 10 3/uL Monocytes 0.5 10 3/uL Eosinophils 0.1 10 3/uL Basophils 0.0 10 3/uL Neutrophil % 61.0 % Lymphocyte % 25.4 % Monocyte % 12.1 % Eosinophil % 1.3 % Basophils % 0.0 % NRBC % 0 % IgG < 300 mg/dL [place] Free Light Chains 101.2 mg/L Lambda Free Light Chains < 1.5 mg/L IgA 2702 mg/dL [place]/Lambda Free Ratio > 67.47 IgM < 25 mg/dL Test performed on Aug 02, 2020 15:48 TSH 3rd Generation 0.803 million units/mL Ferritin 1464 ng/mL Magnesium 2.4 mg/dL PTH, Intact 178 pg/mL % Iron Saturation 41 % Iron, Total 78 mcg/dL TIBC 191 mcg/dL BUN/Creatinine Ratio 9.8 Absolute Value A/G Ratio 0.9 Absolute Value Hemoglobin A1C 4.7 % Manual Lymphocytes 34.5 % Manual Monocytes 8.6 % Manual Eosinophils 1.7 % Manual Basophils 0.2 % Test performed on Jul 05, 2020 00:00 Hepatitis B Surface Ag Negative Test performed on Jun 08, 2020 14:18 Phosphorous 6.3 mg/dL Impression: 1. Patient with IgA kappa myeloma, initially diagnosed in September 2011. He has associated end-stage renal disease and anemia. 2. He had disease progression following initial treatment with 3 cycles of Velcade/dexamethasone completed in December 2011. 3. He underwent autologous peripheral stem cell transplant at [facility] in January 2012, complicated by sepsis and acute renal failure requiring hemodialysis. 4. Following disease recurrence he had further treatment with 10 cycles of carfilzomib and dexamethasone beginning in May 2015. 5. Following disease progression he had further treatment with carfilzomib, Revlimid, and dexamethasone beginning in January 2016, and subsequently with carfilzomib, pomalidomide, and dexamethasone. 6. He then had further decline in kidney function with progression to end-stage renal disease, concerning for progressive myeloma. He began treatment with daratumumab, Revlimid, and dexamethasone beginning in October 2016. His treatment was later transitioned to single agent daratumumab due to toxicities with Revlimid and dexamethasone. He is now receiving daratumumab infusions on a monthly schedule. 7. He has been on daily home peritoneal dialysis for the end-stage renal disease, but he is on hemodialysis. 8. 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 In April 2018 he had started treatment with Procrit, and thus far he has had a good clinical response. 9. He has associated hypogammaglobulinemia, but he has not been symptomatic with it. His other medical illnesses include: 10. Hypertension. 11. Hyperlipidemia. 12. Type II diabetes with peripheral neuropathy. 13. Benign prostatic hypertrophy. In June 2018 he was found to have a low B12 level, and he did start B12 replacement. He also was found to have a mildly elevated TSH level, and he also started thyroid replacement. His repeat B12 level in August was actually high, and the B12 injections were subsequently stopped. As of October 2018 he opted to be admitted to the snf, and he then started hemodialysis. At that point his erythropoietin stimulating agent was changed to Mircera. During subsequent follow-up there was further decline in his hemoglobin, eventually stabilizing at 7.9 g. As of November 2018 he restarted Procrit, and he had a very good clinical response. He has continued monthly daratumumab infusions for the myeloma, and he has continued Procrit injections as needed with this target hemoglobin at 10 g. His protein electrophoresis studies had been showing a gradual increase in the M protein and in the kappa free light chain and in the kappa/lambda ratio. He was not overtly symptomatic with it, by with the progressive increase, Dr Pinto did recommend a change in his treatment regimen. We discussed several options and he ultimately decided to try adding back carfilzomib. He began cycle 1 of daratumumab in combination with carfilzomib and dexamethasone on 03/01/2020. He tolerated the day 1 and day 2 carfilzomib infusions without acute toxicity. He was then able to continue his further treatment on schedule, but he was not able to tolerate any escalation of the carfilzomib dosage due to moderately severe thrombocytopenia. He continued with cycle 2 on 03/29/2020. He continues to have moderately severe thrombocytopenia, but with his platelet count holding stable. There has been a mild increase in his liver enzymes. His M protein thus far has also remained stable. Plan: 1. Proceed with cycle 7 day 1 & 2 carfilzomib, and dexamethasone. The dosages will remain the same. He is on monthly Darzalex and it was last given on 08/02/2020. He will be due again today. 2. Continue current antiemetics as they are working well. 3. Return in 1 week with CBC CMP day 8 & 9 of cycle 7 treatment. 4. He will continue his Procrit/alternative agent at dialysis as his hemoglobin is improving. He began receiving it IV???as it is indicated and his hemoglobin has gone from 8.4-11.9. It has dropped some as of 08/29/2020 to 10.6. He did have a TSH on 08/03/2020 reported at 0.03. He also had a hemoglobin A1c at that time which was reported at 4.7. His iron was 78 and ferritin was 1464 TIBC was 194 and transferrin saturation was 41% on 08/03/2020 per labs in dialysis. 5. His abnormal protein on 07/04/2020 per his SPEP was 1.8, on 1222 is reported at 2.0. In May 2020 it was 1.2. We discussed that the abnormal protein is rising. This would indicate that we may need to consider changing treatments on him as the daratumumab, carfilzomib and dexamethasone are not appearing to be working as well as they had. His kappa free light chain on 08/22/2020 was 108.4 and 103.4 on 08/08/2020. Mr. Stephens request to proceed with carfilzomib for this cycle before we consider changing his treatment. He is very concerned about side effects with other drugs. He has had intolerance to Revlimid in the past. He also had disease progression with carfilzomib, pomalidomide and dexamethasone regimen. He is concerned about neuropathy with the Velcade that he had pretransplant. His calcium level has remained stable @ 8.1; his renal function is elevated due to his chronic renal failure so it is not a predictor of disease progression; his HGB has dropped from 11.9 on 08/15/2020 to 10.6 on 08/29/2020 but he had not been receiving his growth factor; 6. Labs from 08/29/2020 were reviewed in detail and discussed with Mr. Stephens and a copy was given to him. WBC 3.8, hemoglobin 10.6, platelets 78,000, ANC is 1950. 7. Mr. Stephens will Return in 1 week as above for day 8 and 9 of cycle 7 daratumumab, carfilzomib and dexamethasone. 8. He has been advised to watch for bleeding and advised on bleeding precautions as we are treating him with a platelet count of 78,000. We have treated him at this level before and has tolerated extremely well with no evidence of bleeding. 9. He is inquiring about the possibility of receiving the Covid immunizations. He is in a [facility] facility and feels that they may be offer it to them next week. We discussed this at length. There are no current data for use in patients on immunosuppressants/chemotherapy. There is concerned that being on immunosuppressants will possibly decrease the response to the immunizations however this is an unknown. We talked about this at length and he verbalized understanding. The current thought towards immunizing patients on treatment with Covid vaccine is that some immunization protection may be better than none. However we are certainly unaware of known side effects in this population as it was not included in clinical trials. Mr. Stephens states that he wants to proceed with the immunization if it is offered to them. Signed By: Ann Sheets-, AOCNP Dustin Pinto MD <<Signature on File>>
== END 2020-08-30 06:08 | disposition home or self-care (01) ==
LOC: ONCMED 06:08
PROVIDERS: PCP Family Medicine; Visit Provider Nurse Practitioner
DX: Z51.12 Encounter for antineoplastic immunotherapy (principal); C90.02 Multiple myeloma in relapse; E11.22 Type 2 diabetes mellitus with diabetic chronic kidney disease; I12.0 Hypertensive chronic kidney disease with stage 5 chronic kidney disease or end stage renal disease; N18.6 End stage renal disease; D63.1 Anemia in chronic kidney disease; D63.0 Anemia in neoplastic disease; D80.1 Nonfamilial hypogammaglobulinemia; E11.42 Type 2 diabetes mellitus with diabetic polyneuropathy; N40.0 Benign prostatic hyperplasia without lower urinary tract symptoms; Z99.2 Dependence on renal dialysis; Z94.84 Stem cells transplant status; Z79.899 Other long term (current) drug therapy
CPT/HCPCS: 96367; 96375; 96413; 96415; 96417; 99214; J1100; J1200; J2405; J7040; J9047; J9145

== ENCOUNTER 2020-08-31 06:30 | Outpatient (CLI) | payer MEDICARE, OTHER, SELFPAY ==
[2020-08-31] MEDS: sodium chloride 0.9% (100 ml) 100 ML 75 ML (08:05)
[2020-08-31] MEDS: sodium chloride 0.9% 250 ML 75 ML IV (08:05)
[2020-08-31] MEDS: palonosetron 0.25 mg/5 mL SDV IV (08:05)
[2020-08-31] MEDS: dexamethasone 20 MG in sodium chloride 0.9% 50 ML 188 MG IV (08:15)
[2020-08-31] MEDS: diphenhydrAMINE 50 mg/mL SDV 1mL IV (08:39)
== END 2020-08-31 06:31 | disposition home or self-care (01) ==
LOC: ONCMED 06:31
PROVIDERS: PCP Family Medicine; Visit Provider Nurse Practitioner
DX: Z51.11 Encounter for antineoplastic chemotherapy (principal); C90.02 Multiple myeloma in relapse; N18.6 End stage renal disease; D47.2 Monoclonal gammopathy
CPT/HCPCS: 96367; 96375; 96413; J1100; J1200; J2469; J7050; J9047

== ENCOUNTER 2020-09-05 07:55 | Outpatient (CLI) | payer MEDICARE, OTHER, SELFPAY ==
[2020-09-05 10:10] LABS: Eosinophils # 0.1 10^3/uL (0.0-0.8); Eosinophils % 2.7 %; Hematocrit 33.1 % (42.0-52.0); Hemoglobin 10.5 g/dL (11.7-16.6); Lymphocytes % 34.8 %; Mean Corpuscular HGB Conc 31.7 g/dL (30.0-36.0); Mean Corpuscular Hemoglobin 40.9 pg (28.0-34.0); Mean Corpuscular Volume 128.8 fL (80-94); Mean Platelet Volume 10.8 fL (7.4-10.4); Monocytes # 0.5 10^3/uL (0.2-0.9); Neutrophils # 1.36 10^3/uL (1.8-7.7); Neutrophils % 46.5 %; Nucleated Red Blood Cells % 0.7 %; Platelet Count 61 10^3/cmm (130-400); Red Blood Count 2.57 10^6/uL (4.1-5.3); Red Cell Distribution Width 17.6 % (12.1-15.1); White Blood Count 2.9 10^3/uL (4.0-10.0)
[2020-09-05 10:39] LABS: Alanine Aminotransferase 21 U/L (0-41); Albumin Level 3.2 g/dL (3.5-5.2); Alkaline Phosphatase 59 IU/L (40-130); Anion Gap 17.7 (5-19); Aspartate Amino Transferase 21 U/L (0-40); Blood Urea Nitrogen 46 mg/dL (8-23); Calcium 8.6 mg/dL (8.5-10.5); Carbon Dioxide 31 mmol/L (22-29); Chloride 95 mmol/L (98-107); Globulin 4.2 g/dL (1.3-4.6); Glucose 97 mg/dL (65-115); Osmolality Calculated 300 mOsm/kg (285-295); Potassium 4.7 mmol/L (3.5-5.1); Sodium 139 mmol/L (136-145); Total Bilirubin 0.5 mg/dL (0.15-1.2); Total Protein 7.4 g/dL (6.6-8.7)
== END 2020-09-05 07:56 | disposition home or self-care (01) ==
LOC: ONCMED 15:25
PROVIDERS: PCP Family Medicine; Visit Provider Nurse Practitioner
DX: C90.02 Multiple myeloma in relapse (principal); Z51.81 Encounter for therapeutic drug level monitoring; Z79.899 Other long term (current) drug therapy
CPT/HCPCS: 80053; 85025

== ENCOUNTER 2020-09-06 10:21 | Outpatient (CLI) | payer MEDICARE, OTHER, SELFPAY ==
--- NOTE | 2020-09-11 10:26 | ONC FU_ITS ---
[facility] Patient Note Patient: Larry Stephens Unit #: [id number]: 1945 Dictated By: Ann SheetsDate of Visit: Sep 06, 2020 Onc MED Follow-Up/Prog Note Chief Complaint: Multiple myeloma. History of Present Illness: Mr Stephens is a 75 year-old man with relapsed IgA kappa myeloma. He has associated end-stage renal disease and anemia. He had pre-existing hypertension, hyperlipidemia, and type II diabetes. He had developed stage III chronic kidney disease following a colonoscopy prep. He had been seeing Dr. Miguelangel Cha for his nephrology follow-up care, and he was then found to have evidence of IgA kappa monoclonal gammopathy in October 2010. He was initially seen here by Dr. Plasencia in September 2011. At that point his protein electrophoresis showed IgA kappa monoclonal protein quantitating at 1.3 g/dL with 0.2 g/dL of free kappa monoclonal protein. UPEP was reportedly unrevealing. Bone marrow aspiration/biopsy showed 12% plasma cells. 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 There was no evidence of lytic bone involvement. His baseline creatinine was 1.8 mg/dL. He was treated initially with 3 cycles of Velcade/dexamethasone between October and December 2011. He required a dose reduction in the Velcade due to neuropathy. His repeat bone marrow aspiration/biopsy at [facility] on 01/01/2012 showed increase in the plasma cells to 17%. He then continued treatment at [facility] with autologous peripheral stem cell transplant in January 2012, assumed to be with high-dose melphalan, though it is not stated in the available records. The procedure was complicated by sepsis and acute renal failure requiring hemodialysis. He had subsequent relapse of the myeloma. His further treatment included 10 cycles of carfilzomib and dexamethasone beginning in May 2015. It was changed to carfilzomib, Revlimid, and dexamethasone beginning in January 2016 due to disease progression. Following further disease progression, his treatment was transitioned to carfilzomib, pomalidomide, and dexamethasone. As of October 2016, due to progressive kidney disease concerning for progressive myeloma, his treatment was changed to daratumumab, Revlimid, and dexamethasone. The Revlimid and dexamethasone were subsequently omitted due to toxicities, and he has since then continued daratumumab as a single agent. It has been administered on a monthly schedule. During this time his kidney function had progressed to end-stage renal disease, and he has been on home peritoneal dialysis. He had been receiving treatment at [facility]. He was seen here in October 2017 because he desired to continue his further treatment locally. Following his initial visit he continued monthly daratumumab infusions with no apparent adverse effects and no obvious progression of the myeloma. His hemoglobin/hematocrit levels remained stable above transfusion thresholds. On 06/25/2018 he was seen in the emergency room with increasing weakness. On evaluation, he was found to have a low B12 level at 168 pg/mL, and his TSH level was found to be elevated at 13.500 mIU/mL. He started B12 injections, and he also started thyroid replacement. As of 07/22/2018 there was further decline in the hemoglobin to 8.6 g, and at that point he did start treatment with Procrit. He had a very good response with his hemoglobin increasing to 12.2 g after 2 weekly injections. As of October 2018 he had opted to be admitted to the [place] [facility], and he then began hemodialysis. At that point his erythropoietin stimulating agent was changed to Mircera. He then became progressively more anemic. As of 12/02/2018 his hemoglobin had stabilized at 7.9 g. He then restarted Procrit on 12/17/2018. During this time, he also had continued his monthly daratumumab infusions. His anemia did improve after restarting the Procrit. During follow-up his clinical status had otherwise remained stable. His protein electrophoresis had continued to show a very small M protein spike. There had been no significant change in his serum free light chains. 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 His medical illnesses, in addition to myeloma and renal failure, include hypertension, hyperlipidemia, type II diabetes with peripheral neuropathy, and benign prostatic hypertrophy. He is a nonsmoker. INTERIM HISTORY: He then continued on his monthly daratumumab infusions. As of 12/09/2019 he received cycle 38 of daratumumab. He had been tolerating the treatment well and his clinical status had been stable. However, he had been showing a very gradual increase in his M protein, in the kappa free light chain, and in the kappa/lambda ratio. Dr Pinto had discussed options for further treatment, and it was ultimately decided to just try adding back carfilzomib. He began cycle 1 of daratumumab in combination with carfilzomib and dexamethasone on 03/01/2020. He tolerated the day 1 and day 2 carfilzomib infusions without acute toxicity. He was then able to continue with his day 7/8 and day 15/16 carfilzomib infusions on schedule, but he was not able to tolerate any dose escalation due to moderately severe thrombocytopenia. He continued with cycle 2 on 03/29/2020 with the carfilzomib dosage unchanged. He has now completed 6 full cycles of carfilzomib. Multiple myeloma treatment history: 1. December 2011 3 cycles of Velcade/dexamethasone???disease progression. 2. Autologous peripheral stem cell transplant (presumed to be with high-dose melphalan) at [facility] in January 2012 complicated by sepsis and acute renal failure requiring hemodialysis. 3. Disease recurrence???May 2015 he began 10 cycles of carfilzomib and dexamethasone. 4. January 2016???disease progression???carfilzomib Revlimid dexamethasone during which the Revlimid was changed to pomalidomide and continued with carfilzomib pomalidomide and dexamethasone. 5. October 2016 end-stage renal disease concerning for progressive myeloma???he began treatment with daratumumab, Revlimid and dexamethasone and was later transitioned to single agent daratumumab due to toxicities with Revlimid and dexamethasone. 6. March 2020 daratumumab carfilzomib (without dose escaluation) and dexamethasone???complicated by moderately severe thrombocytopenia???current treatment as of 08/30/2020. Mr. Stephens is here today for follow-up. He is due for cycle 7 day 8 & 9 carfilzomib and dexamethasone-he was given daratumumab on day 1. He states overall he continues to feel really good. He denies any new concerns. He denies any fever or chills. He denies any pain. He denies any changes in his energy or overall performance status. He states he continues to do well with dialysis. His ECOG is 1. Past Medical History: Benign prostatic hypertrophy End stage renal disease on home peritoneal dialysis Hyperlipidemia Hypertension Multiple myeloma Type II diabetes with peripheral neuropathy Past Surgical History: Placement of peritoneal diaysis catheter Placement of portacath venous access device Fistula in left arm in 2019 Prevnar 13 in 2018 Cataract excision in 2016 Right inguinal hernia repair in 2007 Cholecystectomy in 1983 Allergies: Bactrim, Codeine Sulfate, Sulfa Antibiotics, TraMADol HCl, and Verapamil HCl. Medications: Acetaminophen 2 Tablet (of 325 mg) Oral four times a day PRN Acyclovir 1 Tablet (of 400 mg) Oral daily Albuterol Sulfate 1 Vial(s) (of (2.5 mg/3ml) 0.083%) Nebulization solution Inhalation t.i.d. PRN Albuterol Sulfate 1 Inhalation (of 108 (90 base) mcg/act) Aerosol Powder, Breath Activated Inhalation q 4 hours Allopurinol 1 Tablet (of 100 mg) Oral daily ALPRAZolam 1 Tablet (of 0.25 mg) Oral at bedtime amLODIPine Besylate 1 Tablet (of 2.5 mg) Oral daily Bisacodyl EC 2 Tablet (of 5 mg) Tablet, enteric coated Oral daily PRN Calcium Acetate 1 Capsule (of 667 mg) Oral t.i.d. Cipro 1 Tablet (of 500 mg) Oral b.i.d. Fluconazole 1 Tablet (of 100 mg) Oral daily Furosemide 1 Tablet (of 80 mg) Oral daily Gentamicin Sulfate 1 (0.1 %) Cream Topical at bedtime Levothyroxine Sodium 1 Tablet (of 50 mcg) Oral daily Loperamide HCl 1 - 2 Tablet (of 2 mg) Oral PRN Lovastatin 1 (40 mg) Tablet Oral at bedtime Mucinex 1 Tablet (of 600 mg) Tablet SR 12 HR Oral b.i.d. PRN Prochlorperazine Maleate 1 Tablet (of 10 mg) Oral q 6 hours PRN Requip 1 Tablet (of 0.5 mg) Oral b.i.d. Tamsulosin HCl 1 Tablet (of 0.4 mg) Capsule Oral b.i.d. Vital-D Rx 1 Tablet (of 1 mg) Oral daily Family History: Mr. Stephens's mother at age 82: Breast Cancer at age 70. Mr. Stephens's father at age 40. Mr. Stephens's maternal grandmother at age 80: cancer history consists of Breast cancer at age 80 (cause of ). Father at age 40, cause unknown to the patient. Mother of breast cancer at age 82. His maternal grandmother also had breast cancer. Social History: Mr. Stephens is and he is retired. Mr. Stephens has never smoked. He has no history of drinking. He is a nonsmoker. He does not drink alcohol. Review Of Symptoms: Constitutional Denies fevers, chills, night sweats, excessive fatigue or weight loss. Allergic/Immunologic No reactions. Eyes Denies significant visual changes. No diplopia. No amaurosis. ENMT Denies changes in hearing, sore throat, mouth sores, difficulty or changes in swallowing ability, and/or sinus drainage. Endocrine No diabetes, thyroid disease or hormone replacement. Denies hot flashes or night sweats. Hematologic/Lymphatic Denies any new bruising or bleeding. The patient denies any tender or palpable lymph nodes. Respiratory Denies dyspnea on exertion, chest pain, cough or hemoptysis. Denies orthopnea. Cardiovascular Denies anginal chest pain, palpitations or orthopnea. Gastrointestinal Denies nausea, vomiting, GI bleeding, or constipation. Denies change in bowel habits and/or stool color, no heartburn or early satiety. Genitourinary (M) Denies hematuria, dysuria, increased frequency, urgency, hesitancy or incontinence. Musculoskeletal Denies joint pain, swelling or redness. No decreased range of motion. Integumentary Denies chronic rashes, inflammation, ulcerations or skin changes. Neurologic Denies headache, blurred vision, and no areas of focal weakness or numbness. Normal gait. No sensory problems. Psychiatric Denies worsening insomnia-using Benadryl and Melatonin prn. Denies depression, brielle or mood swings. Vital Signs: Performed on Sep 06, 2020 10:35 Height - 69.00 in Weight - 152.2 lbs (HIGH) BSA - 1.84 sq.m BMI - 22.48 Temperature - 97.5 F (LOW) Pulse - 52 /min (LOW) Respiration - 5 /min (LOW) BP - 112/54 mm(hg) O2 Sat - 100 % Pain - 0,1 - No physically strenuous activity, but ambulatory and able to carry out light or sedentary work (e.g. office work, light house work). (ECOG) Physical Examination: Constitutional Alert, oriented, no acute distress. Skin pink, warm and dry. Head Normocephalic; atraumatic. Eyes Conjunctivae and sclerae are clear and without icterus. Neck Supple without masses or thyromegaly. No jugular venous distension. Hematologic/Lymphatic No petechiae or purpura. Some bruising on hands-chronic Respiratory Lungs are clear to auscultation without rhonchi or wheezing. Cardiovascular Regular rate and rhythm of heart without murmurs,clicks, gallops or rubs. Abdomen Non-tender, non-distended, no masses, Back/Spine Non-tender to palpation. Extremities No visible deformities, no cyanosis, clubbing or edema. Left arm fistula is unremarkable-no active bleeding and no significant bruising. Musculoskeletal No tenderness or swelling, normal range of motion without obvious weakness. Integumentary No rashes or lesions. Extensive ecchymosis on both arms which is not new. Neurologic No sensory or motor deficits, normal cerebellar function, normal gait. Psychiatric Alert and oriented times three. Coherent speech. Verbalizes understanding of our discussions today. Laboratory:Test performed on Aug 15, 2020 07:18 Sodium 140 mmol/L Potassium 5.3 mmol/L Chloride 96 mmol/L CO2 30 mmol/L Anion Gap 19.3 BUN 55 mg/dL Creatinine 5.8 mg/dL Cr Clearance (Est) 10.6400 mL/min Glucose 91 mg/dL Osmolality - Calculated 305 mOsm/kg Calcium 8.6 mg/dL Protein, Total 7.5 g/dL Albumin 3.6 g/dL Globulin 3.9 g/dL Bilirubin, Total 0.6 mg/dL ALT (SGPT) 30 U/L AST (SGOT) 29 U/L Alkaline Phosphatase 67 IU/L WBC 4.5 10 3/uL RBC 2.93 10 6/uL HGB 11.9 g/dL HCT 36.9 % MCV 125.9 fL MCH 40.6 pg MCHC 32.2 g/dL RDW 17.3 % Platelet Count 68 10 3/cmm MPV 12.7 fL Neutrophils 2.71 10 3/uL Lymphocytes 1.1 10 3/uL Monocytes 0.5 10 3/uL Eosinophils 0.1 10 3/uL Basophils 0.0 10 3/uL Neutrophil % 61.0 % Lymphocyte % 25.4 % Monocyte % 12.1 % Eosinophil % 1.3 % Basophils % 0.0 % NRBC % 0 % IgG < 300 mg/dL Aneth Free Light Chains 101.2 mg/L Lambda Free Light Chains < 1.5 mg/L IgA 2702 mg/dL Aneth/Lambda Free Ratio > 67.47 IgM < 25 mg/dL Test performed on Aug 02, 2020 15:48 TSH 3rd Generation 0.803 million units/mL Ferritin 1464 ng/mL Magnesium 2.4 mg/dL PTH, Intact 178 pg/mL % Iron Saturation 41 % Iron, Total 78 mcg/dL TIBC 191 mcg/dL BUN/Creatinine Ratio 9.8 Absolute Value A/G Ratio 0.9 Absolute Value Hemoglobin A1C 4.7 % Manual Lymphocytes 34.5 % Manual Monocytes 8.6 % Manual Eosinophils 1.7 % Manual Basophils 0.2 % Test performed on Jul 05, 2020 00:00 Hepatitis B Surface Ag Negative Test performed on Jun 08, 2020 14:18 Phosphorous 6.3 mg/dL Impression: 1. Patient with IgA kappa myeloma, initially diagnosed in September 2011. He has associated end-stage renal disease and anemia. 2. He had disease progression following initial treatment with 3 cycles of Velcade/dexamethasone completed in December 2011. 3. He underwent autologous peripheral stem cell transplant at [facility] in January 2012, complicated by sepsis and acute renal failure requiring hemodialysis. 4. Following disease recurrence he had further treatment with 10 cycles of carfilzomib and dexamethasone beginning in May 2015. 5. Following disease progression he had further treatment with carfilzomib, Revlimid, and dexamethasone beginning in January 2016, and subsequently with carfilzomib, pomalidomide, and dexamethasone. 6. He then had further decline in kidney function with progression to end-stage renal disease, concerning for progressive myeloma. He began treatment with daratumumab, Revlimid, and dexamethasone beginning in October 2016. His treatment was later transitioned to single agent daratumumab due to toxicities with Revlimid and dexamethasone. He is now receiving daratumumab infusions on a monthly schedule. 7. He has been on daily home peritoneal dialysis for the end-stage renal disease, but he is on hemodialysis. 8. 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 In April 2018 he had started treatment with Procrit, and thus far he has had a good clinical response. 9. He has associated hypogammaglobulinemia, but he has not been symptomatic with it. His other medical illnesses include: 10. Hypertension. 11. Hyperlipidemia. 12. Type II diabetes with peripheral neuropathy. 13. Benign prostatic hypertrophy. In June 2018 he was found to have a low B12 level, and he did start B12 replacement. He also was found to have a mildly elevated TSH level, and he also started thyroid replacement. His repeat B12 level in August was actually high, and the B12 injections were subsequently stopped. As of October 2018 he opted to be admitted to the [place] [facility], and he then started hemodialysis. At that point his erythropoietin stimulating agent was changed to Mircera. During subsequent follow-up there was further decline in his hemoglobin, eventually stabilizing at 7.9 g. As of November 2018 he restarted Procrit, and he had a very good clinical response. He has continued monthly daratumumab infusions for the myeloma, and he has continued Procrit injections as needed with this target hemoglobin at 10 g. His protein electrophoresis studies had been showing a gradual increase in the M protein and in the kappa free light chain and in the kappa/lambda ratio. He was not overtly symptomatic with it, by with the progressive increase, Dr Pinto did recommend a change in his treatment regimen. We discussed several options and he ultimately decided to try adding back carfilzomib. He began cycle 1 of daratumumab in combination with carfilzomib and dexamethasone on 03/01/2020. He tolerated the day 1 and day 2 carfilzomib infusions without acute toxicity. He was then able to continue his further treatment on schedule, but he was not able to tolerate any escalation of the carfilzomib dosage due to moderately severe thrombocytopenia. He continued with cycle 2 on 03/29/2020. He continues to have moderately severe thrombocytopenia, but with his platelet count holding stable. There has been a mild increase in his liver enzymes. His M protein had remained stable. His M protein began slowly rising with abnormal protein on 07/04/2020 per his SPEP was 1.8, on 08/22 it was reported at 2.0. In May 2020 it was 1.2. We discussed that the abnormal protein is rising. This would indicate that we may need to consider changing treatments on him as the daratumumab, carfilzomib and dexamethasone are not appearing to be working as well as they had. His kappa free light chain on 08/22/2020 was 108.4 and 103.4 on 08/08/2020. Mr. Stephens request to proceed with carfilzomib for this cycle before we consider changing his treatment. He is very concerned about side effects with other drugs. He has had intolerance to Revlimid in the past. He also had disease progression with carfilzomib, pomalidomide and dexamethasone regimen. He is concerned about neuropathy with the Velcade that he had pretransplant. Plan: PROBLEMS ADDRESSED TODAY: A. MULTIPLE MYELOMA WITH EVIDENCE OF DISEASE PROGRESSION 1. Hold cycle 7 day 8 & 9 carfilzomib, and dexamethasone due to platelets of 61,000 and ANC of 1360. His disease is showing progression so we will stop this therapy for now. 2. We discussed at length treatment options with SELINEXOR and BLENREP. We discussed this potential side effects of each. Mr. Stephens states that he would like to forego the Blenrep at present because he already has trouble with his vision. He is willing to try the selinexor. I have requested a prior authorization for selinexor 80 mg day 1 and 3 and dexamethasone 20 mg twice weekly. He is NOT to start any new treatment until he has followup with Dr Pinto. 3. Plan for followup in 2-3 weeks depending on his blood count recovery. He is to have CBC, CMP weekly. 4. He will continue his Procrit/alternative agent at dialysis as his hemoglobin is improving. He began receiving it IV???as it is indicated and his hemoglobin has gone from 8.4-11.9. It has dropped some as of 08/29/2020 to 10.6. He did have a TSH on 08/03/2020 reported at 0.03. He also had a hemoglobin A1c at that time which was reported at 4.7. His iron was 78 and ferritin was 1464 TIBC was 194 and transferrin saturation was 41% on 08/03/2020 per labs in dialysis. 5. His abnormal protein on 07/04/2020 per his SPEP was 1.8, on 08/22 it was reported at 2.0. In May 2020 it was 1.2. We discussed that the abnormal protein is rising. This would indicate that we may need to consider changing treatments on him as the daratumumab, carfilzomib and dexamethasone are not appearing to be working as well as they had. His kappa free light chain on 08/22/2020 was 108.4 and 103.4 on 08/08/2020. Mr. Stephens request to proceed with carfilzomib for this cycle before we consider changing his treatment. He is very concerned about side effects with other drugs. He has had intolerance to Revlimid in the past. He also had disease progression with carfilzomib, pomalidomide and dexamethasone regimen. He is concerned about neuropathy with the Velcade that he had pretransplant. 6. Labs from 09/02/2020 were reviewed in detail and discussed with Mr. Stephens and a copy was given to him. WBC 2.9, hemoglobin 10.5, platelets 61,000 ANC is 1360 creatinine 5.2 (on dialysis) potassium 4.7 LFTs are normal. 7. He has been advised to watch for bleeding and advised on bleeding precautions as we are treating him with a platelet count of 61,000. Signed By: Ann Sheets-, AOCNP Dustin Pinto MD <<Signature on File>>
== END 2020-09-06 10:22 | disposition home or self-care (01) ==
LOC: ONCMED 10:23
PROVIDERS: PCP Family Medicine; Visit Provider Nurse Practitioner
DX: C90.02 Multiple myeloma in relapse (principal); D47.2 Monoclonal gammopathy; E11.22 Type 2 diabetes mellitus with diabetic chronic kidney disease; N18.6 End stage renal disease; Z99.2 Dependence on renal dialysis; I12.0 Hypertensive chronic kidney disease with stage 5 chronic kidney disease or end stage renal disease; E78.5 Hyperlipidemia, unspecified; E11.42 Type 2 diabetes mellitus with diabetic polyneuropathy; N40.0 Benign prostatic hyperplasia without lower urinary tract symptoms; D51.9 Vitamin B12 deficiency anemia, unspecified; Z79.899 Other long term (current) drug therapy
CPT/HCPCS: 99214

== ENCOUNTER 2020-09-08 13:55 | Outpatient (CLI) | payer MEDICARE, OTHER, SELFPAY ==
--- NOTE | 2020-09-08 14:03 | XR_ITS ---
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 FINDINGS: The L1-L4 bone mineral density measures 1.422 g/cm2. This corresponds to a T score score of 1.7 and Z score of 2.7. Left femoral neck bone mineral density measures 0.875 g/cm2. This corresponds to a T score of -1.6 an d Z score of -0.5. Right femoral neck bone mineral density measures 0.861 g/cm2. This corresponds to a T score -1.7of an d Z score of -0.6. Mean femoral neck bone mineral density measures 0.868 g/cm2. This corresponds to a T score of -1.6 an d Z score of -0.5. XR/XR DEXA axial skeleton* [id number] IMPRESSION: Osteopenia in the femoral necks. Normal bone mineralization the lumbar spine. Patient's FRAX calculated 10 year probability for major osteoporotic fracture i s 13.5 % and osteoporotic hip fracture is 5.7%.
== END 2020-09-08 13:56 | disposition home or self-care (01) ==
LOC: RADWPI 14:03
PROVIDERS: PCP Family Medicine; Visit Provider Family Medicine
DX: Z79.52 Long term (current) use of systemic steroids (principal); M85.88 Other specified disorders of bone density and structure, other site
CPT/HCPCS: 77080

== ENCOUNTER 2020-09-13 05:43 | Outpatient (CLI) | payer MEDICARE, OTHER, SELFPAY ==
--- NOTE | 2020-09-16 16:03 | ONC FU_ITS ---
Dr. Pinto Patient Follow-Up Note Patient: Larry Stephens Unit #: [id number]: 1945 Dicatated By: Dustin Pinto M.D.Date of Visit:Sep 13, 2020 Onc Med Follow-up/Prog Note Chief Complaint: Multiple myeloma. History of Present Illness: This is a 75 year-old man with relapsed IgA kappa myeloma. He has associated end-stage renal disease and anemia. He had pre-existing hypertension, hyperlipidemia, and type II diabetes. He had developed stage III chronic kidney disease following a colonoscopy prep. He had been seeing Dr. Miguelangel Cha for his nephrology follow-up care, and he was then found to have evidence of IgA kappa monoclonal gammopathy in October 2010. He was initially seen here by Dr. Plasencia in September 2011. At that point his protein electrophoresis showed IgA kappa monoclonal protein quantitating at 1.3 g/dL with 0.2 g/dL of free kappa monoclonal protein. UPEP was reportedly unrevealing. Bone marrow aspiration/biopsy showed 12% plasma cells. 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 There was no evidence of lytic bone involvement. His baseline creatinine was 1.8 mg/dL. He was treated initially with 3 cycles of Velcade/dexamethasone between October and December 2011. He required a dose reduction in the Velcade due to neuropathy. His repeat bone marrow aspiration/biopsy at [facility] on 01/01/2012 showed increase in the plasma cells to 17%. He then continued treatment at [facility] with autologous peripheral stem cell transplant in January 2012, I assume with high-dose melphalan, though it is not stated in the available records. The procedure was complicated by sepsis and acute renal failure requiring hemodialysis. He had subsequent relapse of the myeloma. His further treatment included 10 cycles of carfilzomib and dexamethasone beginning in May 2015. It was changed to carfilzomib, Revlimid, and dexamethasone beginning in January 2016 due to disease progression. Following further disease progression, his treatment was transitioned to carfilzomib, pomalidomide, and dexamethasone. As of October 2016, due to progressive kidney disease concerning for progressive myeloma, his treatment was changed to daratumumab, Revlimid, and dexamethasone. The Revlimid and dexamethasone were subsequently omitted due to toxicities, and he then continued daratumumab as a single agent. It was administered on a monthly schedule. During this time his kidney function had progressed to end-stage renal disease, and he began on home peritoneal dialysis. He had been receiving treatment at [facility]. He was seen here in October 2017 because he desired to continue his further treatment locally. Following his initial visit he continued monthly daratumumab infusions with no apparent adverse effects and no obvious progression of the myeloma. His hemoglobin/hematocrit levels remained stable above transfusion thresholds. On 06/25/2018 he was seen in the emergency room with increasing weakness. On evaluation, he was found to have a low B12 level at 168 pg/mL, and his TSH level was found to be elevated at 13.500 mIU/mL. He started B12 injections, and he also started thyroid replacement. As of 07/22/2018 there was further decline in the hemoglobin to 8.6 g, and at that point he did start treatment with Procrit. He had a very good response with his hemoglobin increasing to 12.2 g after 2 weekly injections. As of October 2018 [facility] had [facility], and he then began hemodialysis. At that point his erythropoietin stimulating agent was changed to Mircera. He then became progressively more anemic. As of 12/02/2018 his hemoglobin had stabilized at 7.9 g. He then restarted Procrit on 12/17/2018. During this time, he also had continued his monthly daratumumab infusions. His anemia did improve after restarting the Procrit. During follow-up his clinical status had otherwise remained stable. His protein electrophoresis had continued to show a very small M protein spike. There had been no significant change in his serum free light chains. 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 He continued on his monthly daratumumab infusions. His medical illnesses, in addition to myeloma and renal failure, include hypertension, hyperlipidemia, type II diabetes with peripheral neuropathy, and benign prostatic hypertrophy. He is a nonsmoker. INTERIM HISTORY: As of 12/09/2019 he received cycle 38 of daratumumab. He had been tolerating the treatment well and his clinical status had been stable. However, he had been showing a very gradual increase in his M protein, in the kappa free light chain, and in the kappa/lambda ratio. I had discussed options for further treatment, and we ultimately decided to just try adding back carfilzomib. He began cycle 1 of daratumumab in combination with carfilzomib and dexamethasone on 03/01/2020. He tolerated the day 1 and day 2 carfilzomib infusions without acute toxicity. He was then able to continue with his day 7/8 and day 15/16 carfilzomib infusions on schedule, but he was not able to tolerate any dose escalation due to moderately severe thrombocytopenia. He then continued monthly cycles of treatment with the carfilzomib dosage unchanged. He began cycle 6 on 08/02/2020. His repeat protein electrophoresis studies on 08/22/2020 showed further increase in his M protein to 2.0 g/dL compared to 1.2 g/dL on 02/22/2020. During that same time period his serum free light chain assay showed an increase in the kappa/lambda ratio from 10.52 to 60.22. With continued evidence of disease progression, he has been advised to stop his current treatment. He is seen today to discuss his further treatment options which potentially could include the exportin liv selinexor or the BCMA targeting antibody belantamab [id number], both of which have been approved for treatment of refractory myeloma. He is still feeling good generally, and [facility]. Medications: Acetaminophen 2 Tablet (of 325 mg) Oral four times a day PRN, Acyclovir 1 Tablet (of 400 mg) Oral daily, Albuterol Sulfate 1 Vial(s) (of (2.5 mg/3ml) 0.083%) Nebulization solution Inhalation t.i.d. PRN, Albuterol Sulfate 1 Inhalation (of 108 (90 base) mcg/act) Aerosol Powder, Breath Activated Inhalation q 4 hours, Allopurinol 1 Tablet (of 100 mg) Oral daily, ALPRAZolam 1 Tablet (of 0.25 mg) Oral at bedtime, amLODIPine Besylate 1 Tablet (of 2.5 mg) Oral daily, Bisacodyl EC 2 Tablet (of 5 mg) Tablet, enteric coated Oral daily PRN, Calcium Acetate 1 Capsule (of 667 mg) Oral t.i.d., Cipro 1 Tablet (of 500 mg) Oral b.i.d., Fluconazole 1 Tablet (of 100 mg) Oral daily, Furosemide 1 Tablet (of 80 mg) Oral daily, Gentamicin Sulfate 1 (0.1 %) Cream Topical at bedtime, Levothyroxine Sodium 1 Tablet (of 50 mcg) Oral daily, Loperamide HCl 1 - 2 Tablet (of 2 mg) Oral PRN, Lovastatin 1 (40 mg) Tablet Oral at bedtime, Mucinex 1 Tablet (of 600 mg) Tablet SR 12 HR Oral b.i.d. PRN, Prochlorperazine Maleate 1 Tablet (of 10 mg) Oral q 6 hours PRN, Requip 1 Tablet (of 0.5 mg) Oral b.i.d., Tamsulosin HCl 1 Tablet (of 0.4 mg) Capsule Oral b.i.d., Vital-D Rx 1 Tablet (of 1 mg) Oral daily Allergies: Bactrim, Codeine Sulfate, Sulfa Antibiotics, TraMADol HCl, and Verapamil HCl. Vital Signs: Performed on Sep 13, 2020 10:33 Height - 69.00 in Weight - 153.6 lbs (HIGH) BSA - 1.85 sq.m BMI - 22.68 Temperature - 97.2 F (LOW) Pulse - 82 /min Respiration - 16 /min BP - 112/51 mm(hg) O2 Sat - 97 % Pain - 0 Historic Problem List: 1. IgA kappa myeloma, initially diagnosed in September 2011. His initial treatment included 3 cycles of Velcade/dexamethasone followed by autologous stem cell transplant at [facility] in January 2012, complicated by sepsis and acute renal failure requiring hemodialysis. His subsequent treatment included 10 cycles of carfilzomib and dexamethasone beginning in May 2015 followed by carfilzomib, Revlimid, and dexamethasone beginning in January 2016. He then had treatment with carfilzomib, pomalidomide, and dexamethasone. 2. He then had further decline in kidney function with progression to end-stage renal disease. He began treatment with daratumumab, Revlimid, and dexamethasone beginning in October 2016. His treatment was later transitioned to single agent daratumumab due to toxicities with Revlimid and dexamethasone. 3. He also began daily home peritoneal dialysis for the end-stage renal disease, but with subsequent transition to hemodialysis. 4. He has anemia associated with end-stage renal disease. 5. Hypertension. 6. Hyperlipidemia. 7. Type II diabetes with peripheral neuropathy. 8. Benign prostatic hypertrophy. 9. Hypothyroidism. Problems Addressed with this Encounter and Plan: IgA kappa myeloma, initially diagnosed in September 2011. He has had extensive treatment, as outlined above, and his disease is now pentarefractory. He is here today to discuss further treatment options which potentially could include the exportin liv selinexor or the BCMA targeting antibody belantamab [id number], both of which have been approved for treatment of refractory myeloma. Through his own research he had become familiar with the ocular risks associated with balantamab mafodotin, and at least for the time being he is not interested in attempting that treatment. I reviewed potential side effects with the selinexor, which are quite significant, including the potential for fatigue, multiple GI toxicities (nausea/vomiting, anorexia, and diarrhea or constipation), bone marrow suppression with low blood counts, neuro toxicities which may include cognitive dysfunction, and hyponatremia and other electrolyte disturbances, among others. Given these multiple potential toxicities, he prefers not to attempt any further treatment, at least not while he is still not overtly symptomatic with the myeloma. As such, I will just follow him closely on expectant management. He will be scheduled for follow-up visit in 1 month. In the meantime, at his request, I also will look into the possibility of treatment with melflufen, which may be available in the context of a clinical trial. Signed By: Dustin Pinto M.D. <<Signature on File>>
== END 2020-09-13 05:44 | disposition home or self-care (01) ==
LOC: ONCMED 05:45
PROVIDERS: PCP Family Medicine; Visit Provider Internal Medicine Medical Oncology
DX: C90.02 Multiple myeloma in relapse (principal); E78.5 Hyperlipidemia, unspecified; E11.42 Type 2 diabetes mellitus with diabetic polyneuropathy; E11.22 Type 2 diabetes mellitus with diabetic chronic kidney disease; I12.0 Hypertensive chronic kidney disease with stage 5 chronic kidney disease or end stage renal disease; N18.6 End stage renal disease; D63.1 Anemia in chronic kidney disease; Z99.2 Dependence on renal dialysis
CPT/HCPCS: 96523; 99214

== ENCOUNTER 2020-10-03 08:45 | Outpatient (CLI) | payer MEDICARE, OTHER, SELFPAY ==
--- NOTE | 2020-10-03 08:58 | CT_ITS ---
WS: [id number] CT LUMBAR SPINE TECHNIQUE: Noncontrast CT of the lumbar spine with coronal and sagittal reformatted images. CLINICAL INFORMATION: LOW BACK PAIN, MULTIPLE MYELOMA COMPARISON: None. DLP: 1915.[address] scans at [facility] use at least one of these dose optimization techniques: automat ed exposure control; mA and/or kV adjustment per patient size (includes targeted exams where dose is matched to clinical indication); or iterative reconstruction. FINDINGS: Slightly comminuted acute compression fracture superior endplate L2 with minimal loss vertebral body height. Minimal retropulsion posterior superior cortex with slight effacement of ventral thecal sac. No high-grade central canal stenosis. Fracture cleft in the superior endplate L2. Pedicles are normal . Proximal right T12 subacute rib fracture with evidence of callus formation near the costovertebral junction. L1-L2: No significant disc bulging. Spinal canal and foramen are patent. L2-L3: Mild annular bulging. Slight narrowing of the left subarticular recess. Spinal canal and kendall en are patent. Mild facet arthropathy. L3-L4: Mild annular bulging with slight effacement of the ventral thecal sac. Spinal canal and forame n are patent. Mild facet arthropathy. L4-L5: Grade 1 anterolisthesis. Mild annular bulging with moderate central canal stenosis. Mild left and no significant right foraminal narrowing. Moderate facet arthropathy. L5-S1: Mild annular eccentric disc bulging. Tiny central protrusion. Spinal canal and foramen are pat ent. Mild facet arthropathy. Visualized pelvic bony structures: Normal. Paravertebral soft tissues: Normal. CT/CT lumbar spine wo con* [id number] IMPRESSION: 1. Slightly comminuted acute compression superior endplate L2 with fracture cl eft in the superior endplate. Minimal loss vertebral body height. Minimal retro pulsion. Pedicles appear intact. No high-grade central canal stenosis. 2. Proximal right T12 subacute rib fracture with evidence of callus formation near the costovertebral junction. 3. Slight anterolisthesis L4 on L5. 4. Annular bulging L4-5 with moderate central canal stenosis and slight carmella listhesis.
[2020-10-03 10:24] LABS: Basophils % 0.7 %; Eosinophils # 0.2 10^3/uL (0.0-0.8); Eosinophils % 5.5 %; Hematocrit 28.6 % (42.0-52.0); Hemoglobin 8.9 g/dL (11.7-16.6); Lymphocytes # 1.5 10^3/uL (0.8-4.8); Mean Corpuscular HGB Conc 31.1 g/dL (30.0-36.0); Mean Corpuscular Hemoglobin 39.2 pg (28.0-34.0); Mean Platelet Volume 10.6 fL (7.4-10.4); Monocytes # 0.4 10^3/uL (0.2-0.9); Monocytes % 9.7 %; Neutrophils # 1.85 10^3/uL (1.8-7.7); Neutrophils % 45.9 %; Nucleated Red Blood Cells % 0.5 %; Platelet Count 82 10^3/cmm (130-400); Red Blood Count 2.27 10^6/uL (4.1-5.3); Red Cell Distribution Width 17.2 % (12.1-15.1)
[2020-10-03 10:37] LABS: Alanine Aminotransferase 9 U/L (0-41); Albumin Level 3.3 g/dL (3.5-5.2); Alkaline Phosphatase 55 IU/L (40-130); Anion Gap 17.3 (5-19); Aspartate Amino Transferase 20 U/L (0-40); Blood Urea Nitrogen 31 mg/dL (8-23); Calcium 9.8 mg/dL (8.5-10.5); Carbon Dioxide 29 mmol/L (22-29); Chloride 93 mmol/L (98-107); Globulin 5.2 g/dL (1.3-4.6); Glucose 101 mg/dL (65-115); Osmolality Calculated 287 mOsm/kg (285-295); Potassium 4.3 mmol/L (3.5-5.1); Sodium 135 mmol/L (136-145); Total Bilirubin 0.4 mg/dL (0.15-1.2); Total Protein 8.5 g/dL (6.6-8.7)
[2020-10-03 14:19] LABS: Immunoglobulin IGA 3404 mg/dL (70-400)
[2020-10-03 14:26] LABS: Immunoglobulin IGG 78 mg/dL (700-1600); Immunoglobulin IGM < 25 mg/dL (40-230)
[2020-10-04 17:04] LABS: ALPHA 1 GLOBULIN 0.3 g/dL (0.2-0.3); ALPHA 2 GLOBULIN 0.7 g/dL (0.5-0.9); BETA 1 GLOBULIN 0.4 g/dL (0.4-0.6); BETA 2 GLOBULIN 0.4 g/dL (0.2-0.5); GAMMA GLOBULIN 3.2 g/dL (0.8-1.7)
[2020-10-04 18:09] LABS: KAPPA LIGHT CHAIN, FREE, SERUM 403.3 mg/L (3.3-19.4); KAPPA/LAMBDA LIGHT CHAINS FREE 192.05 (0.26-1.65); LAMBDA LIGHT CHAIN, FREE, SERU 2.1 mg/L (5.7-26.3)
== END 2020-10-03 08:46 | disposition home or self-care (01) ==
LOC: RADWPI 08:49
PROVIDERS: PCP Family Medicine; Visit Provider Family Medicine
DX: C90.00 Multiple myeloma not having achieved remission (principal); M48.56XA Collapsed vertebra, not elsewhere classified, lumbar region, initial encounter for fracture; S22.31XA Fracture of one rib, right side, initial encounter for closed fracture; X58.XXXA Exposure to other specified factors, initial encounter; M51.26 Other intervertebral disc displacement, lumbar region; M54.5 Low back pain
CPT/HCPCS: 72131; 80053; 82784; 83883; 84155; 84165; 85025

== ENCOUNTER 2020-10-04 12:12 | Outpatient (CLI) | payer MEDICARE, OTHER, SELFPAY | END 2020-10-04 12:13 | disposition home or self-care (01) | LOC: ONCMED 12:14 | PROVIDERS: PCP Family Medicine; Visit Provider Internal Medicine Medical Oncology | DX: Z45.2 Encounter for adjustment and management of vascular access device (principal) | CPT/HCPCS: 96523 ==

== ENCOUNTER 2020-10-09 05:57 | Outpatient (CLI) | payer MEDICARE, OTHER, SELFPAY ==
--- NOTE | 2020-10-09 17:28 | ONC FU_ITS ---
Dr. Pinto Patient Follow-Up Note Patient: Larry Stephens Unit #: [id number]: 1945 Dicatated By: Dustin Pinto M.D.Date of Visit:Oct 09, 2020 Onc Med Follow-up/Prog Note Chief Complaint: Multiple myeloma. History of Present Illness: This is a 75 year-old man with relapsed IgA kappa myeloma. He has associated end-stage renal disease and anemia. He had pre-existing hypertension, hyperlipidemia, and type II diabetes. He had developed stage III chronic kidney disease following a colonoscopy prep. He had been seeing Dr. Miguelangel Cha for his nephrology follow-up care, and he was then found to have evidence of IgA kappa monoclonal gammopathy in October 2010. He was initially seen here by Dr. Plasencia in September 2011. At that point his protein electrophoresis showed IgA kappa monoclonal protein quantitating at 1.3 g/dL with 0.2 g/dL of free kappa monoclonal protein. UPEP was reportedly unrevealing. Bone marrow aspiration/biopsy showed 12% plasma cells. 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 There was no evidence of lytic bone involvement. His baseline creatinine was 1.8 mg/dL. He was treated initially with 3 cycles of Velcade/dexamethasone between October and December 2011. He required a dose reduction in the Velcade due to neuropathy. His repeat bone marrow aspiration/biopsy at [facility] on 01/01/2012 showed increase in the plasma cells to 17%. He then continued treatment at [facility] with autologous peripheral stem cell transplant in January 2012, I assume with high-dose melphalan, though it is not stated in the available records. The procedure was complicated by sepsis and acute renal failure requiring hemodialysis. He had subsequent relapse of the myeloma. His further treatment included 10 cycles of carfilzomib and dexamethasone beginning in May 2015. It was changed to carfilzomib, Revlimid, and dexamethasone beginning in January 2016 due to disease progression. Following further disease progression, his treatment was transitioned to carfilzomib, pomalidomide, and dexamethasone. As of October 2016, due to progressive kidney disease concerning for progressive myeloma, his treatment was changed to daratumumab, Revlimid, and dexamethasone. The Revlimid and dexamethasone were subsequently omitted due to toxicities, and he then continued daratumumab as a single agent. It was administered on a monthly schedule. During this time his kidney function had progressed to end-stage renal disease, and he began on home peritoneal dialysis. He had been receiving treatment at [facility]. He was seen here in October 2017 because he desired to continue his further treatment locally. Following his initial visit he continued monthly daratumumab infusions with no apparent adverse effects and no obvious progression of the myeloma. His hemoglobin/hematocrit levels remained stable above transfusion thresholds. On 06/25/2018 he was seen in the emergency room with increasing weakness. On evaluation, he was found to have a low B12 level at 168 pg/mL, and his TSH level was found to be elevated at 13.500 mIU/mL. He started B12 injections, and he also started thyroid replacement. As of 07/22/2018 there was further decline in the hemoglobin to 8.6 g, and at that point he did start treatment with Procrit. He had a very good response with his hemoglobin increasing to 12.2 g after 2 weekly injections. As of October 2018 he had [facility], and he then began hemodialysis. At that point his erythropoietin stimulating agent was changed to Mircera. He then became progressively more anemic. As of 12/02/2018 his hemoglobin had stabilized at 7.9 g. He then restarted Procrit on 12/17/2018. During this time, he also had continued his monthly daratumumab infusions. His anemia did improve after restarting the Procrit. During follow-up his clinical status had otherwise remained stable. His protein electrophoresis had continued to show a very small M protein spike. There had been no significant change in his serum free light chains. 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 He continued on his monthly daratumumab infusions. As of 12/09/2019 he received cycle 38 of daratumumab. He had been tolerating the treatment well and his clinical status had been stable. However, he had been showing a very gradual increase in his M protein, in the kappa free light chain, and in the kappa/lambda ratio. I had discussed options for further treatment, and we ultimately decided to just try adding back carfilzomib. He began cycle 1 of daratumumab in combination with carfilzomib and dexamethasone on 03/01/2020. He tolerated the day 1 and day 2 carfilzomib infusions without acute toxicity. He was then able to continue with his day 7/8 and day 15/16 carfilzomib infusions on schedule, but he was not able to tolerate any dose escalation due to moderately severe thrombocytopenia. He then continued monthly cycles of treatment with the carfilzomib dosage unchanged. He began cycle 6 on 08/02/2020. His repeat protein electrophoresis studies on 08/22/2020 showed further increase in his M protein to 2.0 g/dL compared to 1.2 g/dL on 02/22/2020. During that same time period his serum free light chain assay showed an increase in the kappa/lambda ratio from 10.52 to 60.22. With continued evidence of disease progression, the daratumumab/carfilzomib regimen was stopped. I had seen him for a follow-up visit on 09/13/2020, at that time I reviewed other treatment options. As he was not having any obvious symptoms associated with the myeloma, he preferred to just continue observation/expectant management. His medical illnesses, in addition to myeloma and renal failure, include hypertension, hyperlipidemia, type II diabetes with peripheral neuropathy, and benign prostatic hypertrophy. He is a nonsmoker. INTERIM HISTORY: He is seen now for a follow-up visit. He says he has been feeling pretty fair, though his energy lately has been bad, and there has been a definite decline in his activity tolerance. His ECOG score is 2. He still has good appetite. He has no fever or night sweats. He has no shortness of breath, cough, or chest pain. He has no GI complaints. He has just a little bit of urine output. He does have some pain associated with a left inguinal hernia, and he is planning to see Dr. Landry about having the hernia repaired. He does not appear to be having any significant joint or bone pain. He does not complain of headache or dizziness. He does have numbness/tingling in his feet. Medications: Acetaminophen 2 Tablet (of 325 mg) Oral four times a day PRN, Acyclovir 1 Tablet (of 400 mg) Oral daily, Albuterol Sulfate 1 Vial(s) (of (2.5 mg/3ml) 0.083%) Nebulization solution Inhalation t.i.d. PRN, Albuterol Sulfate 1 Inhalation (of 108 (90 base) mcg/act) Aerosol Powder, Breath Activated Inhalation q 4 hours, Allopurinol 1 Tablet (of 100 mg) Oral daily, ALPRAZolam 1 Tablet (of 0.25 mg) Oral at bedtime, amLODIPine Besylate 1 Tablet (of 2.5 mg) Oral daily, Bisacodyl EC 2 Tablet (of 5 mg) Tablet, enteric coated Oral daily PRN, Calcium Acetate 1 Capsule (of 667 mg) Oral t.i.d., Cipro 1 Tablet (of 500 mg) Oral b.i.d., Fluconazole 1 Tablet (of 100 mg) Oral daily, Furosemide 1 Tablet (of 80 mg) Oral daily, Gentamicin Sulfate 1 (0.1 %) Cream Topical at bedtime, Levothyroxine Sodium 1 Tablet (of 50 mcg) Oral daily, Loperamide HCl 1 - 2 Tablet (of 2 mg) Oral PRN, Lovastatin 1 (40 mg) Tablet Oral at bedtime, Mucinex 1 Tablet (of 600 mg) Tablet SR 12 HR Oral b.i.d. PRN, Prochlorperazine Maleate 1 Tablet (of 10 mg) Oral q 6 hours PRN, Requip 1 Tablet (of 0.5 mg) Oral b.i.d., Tamsulosin HCl 1 Tablet (of 0.4 mg) Capsule Oral b.i.d., Vital-D Rx 1 Tablet (of 1 mg) Oral daily Allergies: Bactrim, Codeine Sulfate, Sulfa Antibiotics, TraMADol HCl, and Verapamil HCl. Vital Signs: Performed on Oct 09, 2020 10:36 Height - 69.00 in Weight - 153.8 lbs (HIGH) BSA - 1.85 sq.m BMI - 22.71 Temperature - 96.9 F (LOW) Pulse - 86 /min Respiration - 17 /min BP - 115/52 mm(hg) O2 Sat - 98 % Pain - 0 Fatigue - 7 Physical Examination: Constitutional - He appears somewhat weak generally, Eyes - Sclerae nonicteric. Conjunctivae clear, ENMT - No lesions noted in the oral cavity, Hematologic/Lymphatic - No cervical, clavicular, or axillary adenopathy, Respiratory - Lungs are clear with good air movement bilaterally, Cardiovascular - Heart rhythm is regular. There is a II/ systolic murmur. There is no gallop or rub noted, Abdomen - Mildly distended but soft. Liver and spleen are not enlarged. There is no abdominal mass or ascites noted and there is no inguinal adenopathy, Extremities - No edema. He has chroic purpura, Neurologic - No focal neurologic deficits noted. Lab/Imaging: Test performed on Oct 03, 2020 10:33 Glucose 101 mg/dL Protein, Total 8.0 g/dL BUN 31 mg/dL Creatinine 4.9 mg/dL Cr Clearance (Est) 12.41 mL/min Sodium 135 mmol/L Potassium 4.3 mmol/L Chloride 93 mmol/L CO2 29 mmol/L Calcium 9.8 mg/dL Albumin 3.3 g/dL Globulin 5.2 g/dL Bilirubin, Total 0.4 mg/dL Alkaline Phosphatase 55 IU/L AST (SGOT) 20 IU/L ALT (SGPT) 9 IU/L WBC 4 10^9/L RBC 2.27 10^12/L HGB 8.9 g/dL HCT 28.6 % MCV 126 fl MCH 39.2 pg MCHC 31.1 g/dL RDW 17.2 % Platelet Count 82 10^9/L Neutrophils (Gran) 1.85 10^9/L Lymphocytes 1.5 10^9/L Monocytes 0.4 10^9/L Eosinophils 0.2 10^9/L Basophils 0 10^9/L IGA 3404 mg/dL IGG 25 mg/dL IGM 78 mg/dL Lambda Light Chain 2.1 [place] Light Chain 403.3 Akzyt-8-jzptsvid 0.3 g/dL Vvfoa-4-jtzzbffl 0.7 g/dL Beta Globulin 0.4 g/dL Gamma Globulin 3.2 g/dL Problem List: 1. IgA kappa myeloma, initially diagnosed in September 2011. 2. During follow-up he had progression to end-stage renal disease. He initially had started daily home peritoneal dialysis, but with subsequent transition to hemodialysis. 3. Anemia associated with end-stage renal disease. 4. Hypertension. 5. Hyperlipidemia. 6. Type II diabetes with peripheral neuropathy. 7. Benign prostatic hypertrophy. 8. Hypothyroidism. Problems Addressed with this Encounter and Plan: 1. IgA kappa myeloma, initially diagnosed in September 2011. His myeloma therapy included: 1. Velcade/dexamethasone for 3 cycles, completed December 2011. 2. High-dose melphalan/stem cell transplant in January 2012, complicated by sepsis and acute renal failure requiring hemodialysis. 3. Carfilzomib/dexamethasone for 10 cycles, completed May 2015. 4. Carfilzomib/Revlimid/dexamethasone beginning in January 2016. 5. Carfilzomib/pomalidomide/dexamethasone. 6. Daratumumab/Revlimid/dexamethasone beginning in October 2016. 7. Daratumumab monotherapy until January 2020. 8. Carfilzomib/daratumumab/dexamethasone from 03/01/2020 through 08/31/2020. There has been gradual disease progression since September 2019 with increasing M protein level, free kappa light chain, kappa/lambda ratio, and IgA level. He has had extensive treatment, as outlined above, and his disease now is penta-refractory. I have recommended a trial of further therapy with balantamab [id number], but he remains opposed to even trying it due to the associated risk of ocular toxicity. He has been interested in pursuing possible treatment with melflufen, but that is not yet been approved and I have not been able to determine if that would be available for him. In the meantime, he prefers not to attempt any other treatment. 2. He has had progressively worsening anemia. I suspect this is now due to underlying myeloma, as he is no longer responding to the erythropoietin stimulating agent. I will continue to monitor blood counts every 2 weeks, and he will be transfused PRBC as indicated. Signed By: Dustin Pinto M.D. <<Signature on File>>
== END 2020-10-09 05:58 | disposition home or self-care (01) ==
LOC: ONCMED 06:01
PROVIDERS: PCP Family Medicine; Visit Provider Internal Medicine Medical Oncology
DX: C90.02 Multiple myeloma in relapse (principal); I12.0 Hypertensive chronic kidney disease with stage 5 chronic kidney disease or end stage renal disease; E11.22 Type 2 diabetes mellitus with diabetic chronic kidney disease; N18.6 End stage renal disease; Z99.2 Dependence on renal dialysis; D63.1 Anemia in chronic kidney disease; N40.0 Benign prostatic hyperplasia without lower urinary tract symptoms; E03.9 Hypothyroidism, unspecified; E11.42 Type 2 diabetes mellitus with diabetic polyneuropathy; Z79.899 Other long term (current) drug therapy
CPT/HCPCS: 99214

== ENCOUNTER 2020-10-23 13:52 | Outpatient (CLI) | payer MEDICARE, OTHER, SELFPAY ==
--- NOTE | 2020-10-23 14:07 | CT_ITS ---
WS: [id number] CT pelvis TECHNIQUE: Noncontrast CT of the pelvis with coronal and sagittal reformatted images. CLINICAL INFORMATION: R HIP PAIN COMPARISON: None. DLP: 301.[address] scans at [facility] use at least one of these dose optimization techniques: automat ed exposure control; mA and/or kV adjustment per patient size (includes targeted exams where dose is matched to clinical indication); or iterative reconstruction. FINDINGS: Diffuse osteopenia. Benign-appearing sclerotic bone islands right ilium. Moderate degenerative arthri tis right hip with joint space narrowing. Subchondral cystic change. No acute fractures. Normal right femoral neck. Vague lytic lesion with suspected pathologic fracture involving the right inferior pub ic ramus measuring 1.8 x 1.0 CM. Mild soft tissue thickening. Multiple suspected osteolytic lesions t hroughout the pelvic bony structures suspicious for multiple myeloma or metastatic disease. This can be further evaluated with PET/CT. Moderate degenerative arthritis left hip. Enlarged prostate. Recommend correlation PSA. Prostate measures 5.5 cm. No inguinal lymphadenopathy. Fat-containing umbilical hernia. No free fluid in the pelvis.Fat-containing left inguinal hernia with associated herniated nonobstructed bowel loop proximally. CT/CT pelvis wo con [id number] IMPRESSION: 1. Diffuse demineralization with vague lytic lesions throughout the pelvis and sacrum suspicious for multiple myeloma or possibly metastatic disease. This ca n be further evaluated PET/CT. 2. No acute right hip fractures. 3. Suspected pathologic fracture involving the right inferior pubic ramus with lytic lesion measuring 2.1 x 1.8 cm with associated soft tissue thickening. 4. Enlarged prostate. Recommend correlation PSA. 5. Fat-containing left inguinal hernia with associated herniated nonobstructed bowel loop proximally.
== END 2020-10-23 13:53 | disposition home or self-care (01) ==
LOC: CT 13:52
PROVIDERS: PCP Physician Assistant; Visit Provider Physician Assistant
DX: M25.551 Pain in right hip (principal); K40.90 Unilateral inguinal hernia, without obstruction or gangrene, not specified as recurrent; N40.0 Benign prostatic hyperplasia without lower urinary tract symptoms
CPT/HCPCS: 72192

== ENCOUNTER 2020-10-31 07:22 | Outpatient (CLI) | payer MEDICARE, OTHER, SELFPAY ==
[2020-10-31 11:05] LABS: Basophils % 0.6 %; Eosinophils # 0.1 10^3/uL (0.0-0.8); Eosinophils % 4.1 %; Hematocrit 24.7 % (42.0-52.0); Hemoglobin 7.7 g/dL (11.7-16.6); Lymphocytes # 1.1 10^3/uL (0.8-4.8); Lymphocytes % 32.8 %; Mean Corpuscular HGB Conc 31.2 g/dL (30.0-36.0); Mean Corpuscular Hemoglobin 38.7 pg (28.0-34.0); Mean Corpuscular Volume 124.1 fL (80-94); Mean Platelet Volume 11.6 fL (7.4-10.4); Monocytes # 0.4 10^3/uL (0.2-0.9); Monocytes % 11.1 %; Neutrophils # 1.74 10^3/uL (1.8-7.7); Neutrophils % 51.1 %; Nucleated Red Blood Cells % 0.6 %; Platelet Count 47 10^3/cmm (130-400); Red Blood Count 1.99 10^6/uL (4.1-5.3); Red Cell Distribution Width 17.9 % (12.1-15.1); White Blood Count 3.4 10^3/uL (4.0-10.0)
[2020-10-31 11:27] LABS: Calcium 9.8 mg/dL (8.5-10.5); Carbon Dioxide 27 mmol/L (22-29); Total Protein 8.7 g/dL (6.6-8.7)
[2020-10-31 12:15] LABS: Albumin Level 3.2 g/dL (3.5-5.2); Alkaline Phosphatase 64 IU/L (40-130); Anion Gap 19.7 (5-19); Blood Urea Nitrogen 33 mg/dL (8-23); Chloride 90 mmol/L (98-107); Globulin 5.5 g/dL (1.3-4.6); Osmolality Calculated 282 mOsm/kg (285-295); Potassium 3.7 mmol/L (3.5-5.1); Sodium 133 mmol/L (136-145)
[2020-10-31 12:16] LABS: Alanine Aminotransferase 10 U/L (0-41); Aspartate Amino Transferase 18 U/L (0-40); Glucose 75 mg/dL (65-115); Total Bilirubin 0.4 mg/dL (0.15-1.2)
[2020-10-31 14:00] LABS: Immunoglobulin IGA 3715 mg/dL (70-400); Immunoglobulin IGG 90 mg/dL (700-1600); Immunoglobulin IGM 7 mg/dL (40-230)
[2020-11-01 09:44] LABS: PROTEIN, TOTAL 8.1 g/dL (6.1-8.1)
[2020-11-01 15:24] LABS: ALBUMIN 3.2 g/dL (3.8-4.8); ALPHA 1 GLOBULIN 0.4 g/dL (0.2-0.3); ALPHA 2 GLOBULIN 0.6 g/dL (0.5-0.9); BETA 1 GLOBULIN 0.3 g/dL (0.4-0.6); BETA 2 GLOBULIN 0.5 g/dL (0.2-0.5); GAMMA GLOBULIN 3.2 g/dL (0.8-1.7); KAPPA LIGHT CHAIN, FREE, SERUM 604.3 mg/L (3.3-19.4); LAMBDA LIGHT CHAIN, FREE, SERU 8.1 mg/L (5.7-26.3)
== END 2020-10-31 07:23 | disposition home or self-care (01) ==
LOC: ONCMED 11-01 07:30
PROVIDERS: PCP Physician Assistant; Visit Provider Internal Medicine Medical Oncology
DX: C90.02 Multiple myeloma in relapse (principal); N18.6 End stage renal disease; D63.0 Anemia in neoplastic disease; D63.1 Anemia in chronic kidney disease
CPT/HCPCS: 80053; 82784; 83883; 84155; 84165; 85025

== ENCOUNTER 2020-11-29 08:11 | Outpatient (RCR) | payer MEDICARE, OTHER, SELFPAY ==
--- NOTE | 2020-11-01 | CT_ITS ---
Radiation Therapy Planning CT images; total exam DLP: 831.33 mGy-cm MTDD
--- NOTE | 2020-11-01 16:20 | N.ONRAD NP_ITS ---
Radiation Oncology New Patient Visit Patient: Larry Stephens MR#: [id number] : 1945> Age: 75> Sex: Male> Dictated by: Dr. Glenn Delgado Date of Service: 11/01/2020 Referring Physician(s) : Boo Scott M.D. Diagnosis: N18.6 - end stage renal disease on dialysis, Diagnosed 12/08/2017 (active), C90.02 - multiple myeloma in relapse, Diagnosed 11/26/2017 (active) and 273.1 - monoclonal paraproteinemia, Diagnosed 09/01/1799 (active). Radiotherapy to date: Summary > No prior radiation therapy. Chief Complaint / History of Present Illness: Long standing myeloma dx 09/2011. Extensive treatment in the past including autologous stem cell BMT at in 01/2012 followed by relapse and progression on a series of sequential treatment regiments most recently on Carfilzomib/daratumumab/dxm through 08/2020. He now has a recent history of sever right groin and prox anterior thigh pain up to 10 on 10 scale now spontaneously better at 5 on 10 scale. Ambulates with a walker. He does not tolerate narcotics and cannot take NSAIDS. Tylenol not helping. He also has low back pain when laying on a hard surface but absent when rolling over to one side. He also notes ongoing fatigue. Since being 2 years ago he is now living in assisted living in [facility]. He has chronic renal failure and was on PD until his and now on HD 3 x week. He is able to come for a future appointment here only on Tuesdays and . CT pelvis 10/23/2020 diffuse scattered lytic lesions in pelvis , dominant one in right inferior anterior pubic bone with complete cortical erosion and possible non displaced fracture at that site. Proximal femurs are spared of significant lytic disease. CT lumbar spine tiny superior ant endplate fracture of L2. Minimal comp fx. No other fxs or significant lytic disease seen. Current Medications: Acetaminophen, acetaminophen, acyclovir, acyclovir, albuterol Sulfate, albuterol Sulfate, allopurinol, aloxi, aLPRAZolam, amLODIPine Besylate, bisacodyl EC, calcium Acetate, carfilzomib, cipro, cipro, daratumumab, dexamethasone, diphenhydrAMINE HCl, famciclovir, fluconazole, fluconazole, furosemide, gentamicin Sulfate, levothyroxine Sodium, loperamide HCl, lovastatin, mucinex, ondansetron HCl, prochlorperazine Maleate, requip, sodium Chloride, synthroid, tamsulosin HCl, vital-D Rx. Allergies: Codeine Sulfate, Bactrim, TraMADol HCl, Sulfa Antibiotics and Verapamil HCl. Medical History: - Benign prostatic hypertrophy, - end stage renal disease on home peritoneal dialysis, - hyperlipidemia, - hypertension, - multiple myeloma, - type II diabetes with peripheral neuropathy. No history of collagen vascular disease. No previous radiation therapy. Surgical History: Cataract excision in 07/2016, cholecystectomy in 1983, fistula in left arm in 11/2018, placement of peritoneal diaysis catheter, placement of portacath venous access device, prevnar 13 on 05/20/2018 and right inguinal hernia repair in 2007. Family History: Father is at age 40. Mother is at age 82 having experienced Breast Cancer at age 70. Maternal Grandmother is at age 80 having experienced Cancer history consists of Breast cancer at age 80 (cause of ). Father at age 40, cause unknown to the patient. Mother of breast cancer at age 82. His maternal grandmother also had breast cancer. Social History: Last screened on 10/09/2020 - Never smoked. Last screened on 10/09/2020 - Never drank. 2 years ago. from [facility]. Worked for [employer] for 30 years. Living in assisted living since 2 years ago. Current Complaints / Review of Systems: . Vital Signs: Performed on 11/01/2020 1:35 PM BMI - 23.51 kg/m2 (high), Height - 69.00 in, Weight - 159.2 lbs, Temperature - 98.9 f, Pulse - 72, Respiration - 18, O2 Sat - 100 %, Pain - 10 and BP - 119/ 54 mm(hg)(/low). Physical Exam: Elderly appearing and appearing chronically ill. Port in right chest. HD fistula in left arm. No palpable adenopathy. Lungs clear. Heart regular. Abdomen benign. No spinal percussion tenderness. No palpation tenderness in right groin. LE strength slightly diminished right leg due to pain. Sensation and refexes intact and symmetric. Performance Status: 81 Pathology: Primary, n18.6 - end stage renal disease on dialysis, Diagnosed 12/08/2017 (active), Primary, c90.02 - multiple myeloma in relapse, Diagnosed 11/26/2017 (active) and Primary, 273.1 - monoclonal paraproteinemia, Diagnosed 09/01/1799 (active). Lab: Test performed on 06/08/2020 2:18 PM Phosphorous - 6.3 mg/dl (high), Test performed on 08/02/2020 3:48 PM Ferritin - 1464 ng/ml (high), TIBC - 191 mcg/dl (low), PTH, Intact - 178 pg/ml (high), Test performed on 08/15/2020 7:18 AM MPV - 12.7 fl (high), Anion Gap - 19.3 (high), Osmolality - Calculated - 305 mosm/kg (high), [place] Free Light Chains - 101.2 mg/l (high), Lambda Free Light Chains - 1.5 mg/l (low), [place]/Lambda Free Ratio - 67.47 (high), Test performed on 10/03/2020 10:33 AM BUN - 31 mg/dl (high), Creatinine - 4.9 mg/dl (high), Cr Clearance (Est) - 12.41 ml/min (low), Chloride - 93 mmol/l (low), Albumin - 3.3 g/dl (low), Globulin - 5.2 g/dl (high), RBC - 2.27 10^12/l (low), HGB - 8.9 g/dl (low), HCT - 28.6 % (low), MCV - 126 fl (high), MCH - 39.2 pg (high), MCHC - 31.1 g/dl (low), RDW - 17.2 % (high), Platelet Count - 82 10^9/l (low), IGA - 3404 mg/dl (high), IGG - 25 mg/dl (low), Beta Globulin - 0.4 g/dl (low) and Gamma Globulin - 3.2 g/dl (high). Imaging: See HPI Impression: Progressive treatment refractory multiple myeloma. Symptomatic progression in right public bone. Plan on a single 8 gy fx to right hip and public bone. Plan to treat on 11/07/2020 to work with his HD schedule. Discussed with patient and Dr. Pinto Plan: 8 gy palliative treatment to right hop and pubic bone. Signed by: 11/01/2020 4:19:25 PM <<Signature on File>> Time spent with patient: CPT Code: CPT Code:
[2020-11-06] VITALS (10 sets, daily range): BP systolic 122–152; BP diastolic 61–76; PULSE 65–68; RESP 18; TEMP 36.6–37.1; O2SAT 18–98
[2020-11-06 11:27] LABS: Basophils % 0.3 %; Eosinophils # 0.2 10^3/uL (0.0-0.8); Eosinophils % 7.5 %; Hematocrit 22.3 % (42.0-52.0); Hemoglobin 7.3 g/dL (11.7-16.6); Lymphocytes # 0.9 10^3/uL (0.8-4.8); Mean Corpuscular HGB Conc 32.7 g/dL (30.0-36.0); Mean Corpuscular Hemoglobin 39.7 pg (28.0-34.0); Mean Corpuscular Volume 121.2 fL (80-94); Mean Platelet Volume 11.5 fL (7.4-10.4); Monocytes # 0.3 10^3/uL (0.2-0.9); Monocytes % 10.6 %; Neutrophils # 1.53 10^3/uL (1.8-7.7); Neutrophils % 52.3 %; Nucleated Red Blood Cells % 0 %; Platelet Count 38 10^3/cmm (130-400); Red Blood Count 1.84 10^6/uL (4.1-5.3); White Blood Count 2.9 10^3/uL (4.0-10.0)
[2020-11-06] MEDS: sodium chloride 0.9% 250 ML 999 ML IV (12:00)
[2020-11-06] MEDS: acetaminophen 325 mg Tablet 650 MG PO (12:00)
[2020-11-06] MEDS: diphenhydrAMINE 25 mg Capsule PO (12:00)
[2020-11-06] MEDS: FUROsemide 10 mg/mL SDV 2mL 20 MG IV (15:00)
--- NOTE | 2020-11-07 20:50 | ONC FU_ITS ---
Dr. Pinto Patient Follow-Up Note Patient: Larry Stephens Unit #: [id number]: 1945 Dicatated By: Dustin Pinto M.D.Date of Visit:Nov 07, 2020 Onc Med Follow-up/Prog Note Chief Complaint: Multiple myeloma. History of Present Illness: This is a 75 year-old man with relapsed IgA kappa myeloma. He has associated end-stage renal disease and anemia. He had pre-existing hypertension, hyperlipidemia, and type II diabetes. He had developed stage III chronic kidney disease following a colonoscopy prep. He had been seeing Dr. Miguelangel Cha for his nephrology follow-up care, and he was then found to have evidence of IgA kappa monoclonal gammopathy in October 2010. He was initially seen here by Dr. Plasencia in September 2011. At that point his protein electrophoresis showed IgA kappa monoclonal protein quantitating at 1.3 g/dL with 0.2 g/dL of free kappa monoclonal protein. UPEP was reportedly unrevealing. Bone marrow aspiration/biopsy showed 12% plasma cells. 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 There was no evidence of lytic bone involvement. His baseline creatinine was 1.8 mg/dL. He was treated initially with 3 cycles of Velcade/dexamethasone between October and December 2011. He required a dose reduction in the Velcade due to neuropathy. His repeat bone marrow aspiration/biopsy at [facility] on 01/01/2012 showed increase in the plasma cells to 17%. He then continued treatment at [facility] with autologous peripheral stem cell transplant in January 2012, I assume with high-dose melphalan, though it is not stated in the available records. The procedure was complicated by sepsis and acute renal failure requiring hemodialysis. He had subsequent relapse of the myeloma. His further treatment included 10 cycles of carfilzomib and dexamethasone beginning in May 2015. It was changed to carfilzomib, Revlimid, and dexamethasone beginning in January 2016 due to disease progression. Following further disease progression, his treatment was transitioned to carfilzomib, pomalidomide, and dexamethasone. As of October 2016, due to progressive kidney disease concerning for progressive myeloma, his treatment was changed to daratumumab, Revlimid, and dexamethasone. The Revlimid and dexamethasone were subsequently omitted due to toxicities, and he then continued daratumumab as a single agent. It was administered on a monthly schedule. During this time his kidney function had progressed to end-stage renal disease, and he began on home peritoneal dialysis. He had been receiving treatment at [facility]. He was seen here in October 2017 because he desired to continue his further treatment locally. Following his initial visit he continued monthly daratumumab infusions with no apparent adverse effects and no obvious progression of the myeloma. His hemoglobin/hematocrit levels remained stable above transfusion thresholds. On 06/25/2018 he was seen in the emergency room with increasing weakness. On evaluation, he was found to have a low B12 level at 168 pg/mL, and his TSH level was found to be elevated at 13.500 mIU/mL. He started B12 injections, and he also started thyroid replacement. As of 07/22/2018 there was further decline in the hemoglobin to 8.6 g, and at that point he did start treatment with Procrit. He had a very good response with his hemoglobin increasing to 12.2 g after 2 weekly injections. As of October 2018 he had opted to be admitted to the [facility], and he then began hemodialysis. At that point his erythropoietin stimulating agent was changed to Mircera. He then became progressively more anemic. As of 12/02/2018 his hemoglobin had stabilized at 7.9 g. He then restarted Procrit on 12/17/2018. During this time, he also had continued his monthly daratumumab infusions. His anemia did improve after restarting the Procrit. During follow-up his clinical status had otherwise remained stable. His protein electrophoresis had continued to show a very small M protein spike. There had been no significant change in his serum free light chains. 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 He continued on his monthly daratumumab infusions. As of 12/09/2019 he received cycle 38 of daratumumab. He had been tolerating the treatment well and his clinical status had been stable. However, he had been showing a very gradual increase in his M protein, in the kappa free light chain, and in the kappa/lambda ratio. I had discussed options for further treatment, and we ultimately decided to just try adding back carfilzomib. He began cycle 1 of daratumumab in combination with carfilzomib and dexamethasone on 03/01/2020. He tolerated the day 1 and day 2 carfilzomib infusions without acute toxicity. He was then able to continue with his day 7/8 and day 15/16 carfilzomib infusions on schedule, but he was not able to tolerate any dose escalation due to moderately severe thrombocytopenia. He then continued monthly cycles of treatment with the carfilzomib dosage unchanged. He began cycle 6 on 08/02/2020. His repeat protein electrophoresis studies on 08/22/2020 showed further increase in his M protein to 2.0 g/dL compared to 1.2 g/dL on 02/22/2020. During that same time period his serum free light chain assay showed an increase in the kappa/lambda ratio from 10.52 to 60.22. With continued evidence of disease progression, the daratumumab/carfilzomib regimen was stopped. I had seen him for a follow-up visit on 09/13/2020, at that time I reviewed other treatment options. As he was not having any obvious symptoms associated with the myeloma, he preferred to just continue observation/expectant management. His medical illnesses, in addition to myeloma and renal failure, include hypertension, hyperlipidemia, type II diabetes with peripheral neuropathy, and benign prostatic hypertrophy. He is a nonsmoker. INTERIM HISTORY: As of his follow-up visit in October 2020 his repeat protein electrophoresis showed significant increase in his M protein to 3.0 g/dL. At that point he was still stable clinically and he preferred not to attempt any of the available salvage therapies due to concerns over their potential side effects. He had subsequently developed increased pain in his lower back and pelvic area. A CT of the lumbar spine on 10/03/2020 had shown evidence of acute compression fracture involving the superior endplate of the L2 vertebral body but with minimal loss of vertebral body height. There was annual bulging at L4-5 with moderate central canal stenosis and slight anterolisthesis. Further evaluation with CT of the pelvis on 10/23/2020 showed diffuse demineralization with vague lytic lesions throughout the pelvis and sacrum, suspicious for myeloma or possibly metastatic disease. There is no apparent fracture in the right hip but there was suspected pathologic fracture involving the right inferior pubic ramus with a lytic lesion measuring 2.1 x 1.8 cm. He is seen for a follow-up visit. In view of the pelvic CT findings, he had radiation oncology consultation with Dr. Delgado on 11/01/2020, and he he has is being given palliative radiation to the right hip area today. He is still having a lot of pain in the lower back and right hip, but he is walking at the [facility]. He had very poor tolerance for opiate pain medication, and he is trying to get by without having to take any. The pain is better now than it was. His ECOG score is 2. He still has good appetite. He has no fever or night sweats. He does not complain of shortness of breath, cough, or chest pain. He has no GI complaints. Bowel function remains adequate. He has just a little bit of urine output. He does not complain of headache or dizziness. He has numbness in his feet, but it is intermittent. Medications: Acetaminophen 2 Tablet (of 325 mg) Oral four times a day PRN, Acyclovir 1 Tablet (of 400 mg) Oral daily, Albuterol Sulfate 1 Vial(s) (of (2.5 mg/3ml) 0.083%) Nebulization solution Inhalation t.i.d. PRN, Albuterol Sulfate 1 Inhalation (of 108 (90 base) mcg/act) Aerosol Powder, Breath Activated Inhalation q 4 hours, Allopurinol 1 Tablet (of 100 mg) Oral daily, ALPRAZolam 1 Tablet (of 0.25 mg) Oral at bedtime, amLODIPine Besylate 1 Tablet (of 2.5 mg) Oral daily, Bisacodyl EC 2 Tablet (of 5 mg) Tablet, enteric coated Oral daily PRN, Calcium Acetate 1 Capsule (of 667 mg) Oral t.i.d., Cipro 1 Tablet (of 500 mg) Oral b.i.d., Fluconazole 1 Tablet (of 100 mg) Oral daily, Furosemide 1 Tablet (of 80 mg) Oral daily, Gentamicin Sulfate 1 (0.1 %) Cream Topical at bedtime, Levothyroxine Sodium 1 Tablet (of 50 mcg) Oral daily, Loperamide HCl 1 - 2 Tablet (of 2 mg) Oral PRN, Lovastatin 1 (40 mg) Tablet Oral at bedtime, Metoprolol Succinate ER (25 mg) Tablet SR 24 HR Oral daily, Mucinex 1 Tablet (of 600 mg) Tablet SR 12 HR Oral b.i.d. PRN, Prochlorperazine Maleate 1 Tablet (of 10 mg) Oral q 6 hours PRN, Renvela 3 (800 mg) Tablet Oral daily, Requip 1 Tablet (of 0.5 mg) Oral b.i.d., Tamsulosin HCl 1 Tablet (of 0.4 mg) Capsule Oral b.i.d., Vital-D Rx 1 Tablet (of 1 mg) Oral daily Allergies: Bactrim, Codeine Sulfate, Sulfa Antibiotics, TraMADol HCl, and Verapamil HCl. Vital Signs: Performed on Nov 07, 2020 15:17 Height - 69.00 in Weight - 161.0 lbs Temperature - 98.5 F Pulse - 76 Respiration - 20 BP - 112/68 mm(hg) O2 Sat - 99 % Pain - 10 Performed on Nov 07, 2020 15:17 BMI - 23.776 kg/m2 (HIGH) Performed on Nov 07, 2020 14:54 Height - 69.00 in Weight - 161 lbs (HIGH) BSA - 1.88 sq.m BMI - 23.78 Temperature - 98.5 F Pulse - 76 /min Respiration - 20 /min BP - 112/68 mm(hg) O2 Sat - 99 % Pain - 10 Fatigue - 0 Physical Examination: Constitutional - He appears somewhat weak generally, Eyes - Sclerae nonicteric. Conjunctivae clear, ENMT - No lesions noted in the oral cavity, Hematologic/Lymphatic - No cervical, clavicular, or axillary adenopathy, Respiratory - Lungs are clear with good air movement bilaterally, Cardiovascular - Heart rhythm is regular with some premature beats. There is a II/ systolic murmur. There is no gallop or rub noted, Abdomen - Soft. Liver and spleen are not enlarged. There is no abdominal mass or ascites noted and there is no inguinal adenopathy, Extremities - No edema. He has extensive purpura, which is chronic, Neurologic - No focal neurologic deficits noted. Lab/Imaging: Test performed on Nov 01, 2020 00:00 Ferritin 1555 ng/mL Magnesium 2.1 mg/dL TSH 0.683 uU/mL % Iron Saturation 46 % Cholesterol, Total 49 mg/dL Glucose 100 mg/dL BUN 45 mg/dL HDL Cholesterol 27 mg/dL Iron, Total 85 mcg/dL Creatinine 6.26 mg/dL LDL Cholesterol 11 mg/dL TIBC 184 mcg/dL Cr Clearance (Est) 9.71 mL/min VLDL Cholesterol 11 mg/dL Triglycerides 53 mg/dL Sodium 137 mmol/L Potassium 3.9 mmol/L Chloride 95 mmol/L CO2 23 mmol/L Calcium 9.6 mg/dL Protein, Total 7.9 g/dL Albumin 3.1 g/dL Globulin 4.8 g/dL Bilirubin, Total 0.6 mg/dL Alkaline Phosphatase 51 IU/L AST (SGOT) 25 IU/L ALT (SGPT) 18 IU/L WBC 3.30 10^9/L RBC 1.97 10^12/L HGB 7.8 g/dL HCT 24.0 % MCV 122 fl MCH 39.5 pg MCHC 32.5 g/dL RDW 19.2 % Platelet Count 37 10^9/L Manual Lymphocytes 23.1 % Manual Monocytes 7.5 % Manual Eosinophils 3.8 % Manual Basophils 0.7 % Problem List: 1. IgA kappa myeloma, initially diagnosed in September 2011. 2. During follow-up he had progression to end-stage renal disease. He initially had started daily home peritoneal dialysis, but with subsequent transition to hemodialysis. 3. Anemia associated with end-stage renal disease. 4. Hypertension. 5. Hyperlipidemia. 6. Type II diabetes with peripheral neuropathy. 7. Benign prostatic hypertrophy. 8. Hypothyroidism. Problems Addressed with this Encounter and Plan: 1. IgA kappa myeloma, initially diagnosed in September 2011. His myeloma therapy included: 1. Velcade/dexamethasone for 3 cycles, completed December 2011. 2. High-dose melphalan/stem cell transplant in January 2012, complicated by sepsis and acute renal failure requiring hemodialysis. 3. Carfilzomib/dexamethasone for 10 cycles, completed May 2015. 4. Carfilzomib/Revlimid/dexamethasone beginning in January 2016. 5. Carfilzomib/pomalidomide/dexamethasone. 6. Daratumumab/Revlimid/dexamethasone beginning in October 2016. 7. Daratumumab monotherapy until January 2020. 8. Carfilzomib/daratumumab/dexamethasone from 03/01/2020 through 08/31/2020. He had been showing gradual disease progression since September 2019, but has a October 2020 there was a more significant increase in his M protein level, to 3.0 g/dL. He was initially not overtly symptomatic, but he has now developed symptomatic bone involvement in the pelvis and possibly also the lumbar spine. He had previously been reluctant to continue with available salvage therapies due to concerns over side effects. However, another medication, melphalan flufenamide, has just recently been approved as a salvage therapy for myeloma, and the plan is to proceed with that treatment as soon as we can get the medication available for him. 2. He has had progressively worsening anemia, which is almost certainly due to the underlying myeloma. He required transfusion of PRBC yesterday. He will require ongoing monitoring of his blood counts, and he will be transfused again as needed. Signed By: Dustin Pinto M.D. <<Signature on File>>
--- NOTE | 2020-11-27 15:08 | ONCRAD EPV_ITS ---
Radiation Oncology Follow-Up Note Patient Name: Larry Stephens Date of : 1945 Date of Service: 11/27/2020 Attending Physician: Olvin Goncalves M.D. Larry Stephens returned to my office this afternoon for a routinely scheduled follow-up appointment. He completed palliative right hip radiotherapy in October for the management of his multiple myeloma. Daily radiotherapy was administered on November 07, 2020. ???A prescribed dose of 8 Gy was delivered in 1 fraction. On review of systems, the patient reported worsening lower back pain. On physical examination, the patient weighed 152 lbs. The temperature is 98.6???F. His blood pressure was 107/52 mmHg. The pulse was 69 bpm and respiratory rate was 18 breaths per minute. In summary, the patient returned for a routine post-radiotherapy follow-up. CT imaging ordered in October did not identify lytic lesions within the lumbar spine associated with multiple myeloma but did reveal structural abnormalities. I will refer him for pain management consultation and he will begin a recently approved salvage therapy under the supervision of Dustin Pinto M.D. Signed by: Dr. Olvin Goncalves 11/27/2020 3:07:14 PM
[2020-11-27 16:13] LABS: Basophils % 0.3 %; Eosinophils # 0.2 10^3/uL (0.0-0.8); Eosinophils % 5.5 %; Hematocrit 28.8 % (42.0-52.0); Hemoglobin 9.2 g/dL (11.7-16.6); Lymphocytes # 0.7 10^3/uL (0.8-4.8); Lymphocytes % 21.9 %; Mean Corpuscular HGB Conc 31.9 g/dL (30.0-36.0); Mean Corpuscular Hemoglobin 36.1 pg (28.0-34.0); Mean Corpuscular Volume 112.9 fL (80-94); Mean Platelet Volume 10.8 fL (7.4-10.4); Monocytes # 0.3 10^3/uL (0.2-0.9); Monocytes % 10.3 %; Nucleated Red Blood Cells % 0 %; Platelet Count 50 10^3/cmm (130-400); Red Blood Count 2.55 10^6/uL (4.1-5.3); Red Cell Distribution Width 25.5 % (12.1-15.1); White Blood Count 3.1 10^3/uL (4.0-10.0)
[2020-11-27 16:44] LABS: Alanine Aminotransferase 19 U/L (0-41); Albumin Level 3.4 g/dL (3.5-5.2); Alkaline Phosphatase 112 IU/L (40-130); Anion Gap 17.2 (5-19); Aspartate Amino Transferase 32 U/L (0-40); Blood Urea Nitrogen 18 mg/dL (8-23); Calcium 8.1 mg/dL (8.5-10.5); Carbon Dioxide 30 mmol/L (22-29); Chloride 93 mmol/L (98-107); Globulin 4.7 g/dL (1.3-4.6); Glucose 83 mg/dL (65-115); Immunoglobulin IGG 300 mg/dL (700-1600); Immunoglobulin IGM 25 mg/dL (40-230); Osmolality Calculated 285 mOsm/kg (285-295); Potassium 3.2 mmol/L (3.5-5.1); Sodium 137 mmol/L (136-145); Total Bilirubin 0.6 mg/dL (0.15-1.2); Total Protein 8.1 g/dL (6.6-8.7)
[2020-11-27 16:58] LABS: Immunoglobulin IGA 2990 mg/dL (70-400)
[2020-11-28 08:23] LABS: PROTEIN, TOTAL 7.8 g/dL (6.1-8.1)
[2020-11-29 14:07] LABS: ABNORMAL PROTEIN BAND 1 2.7 g/dL (NONE DETECTED); ALBUMIN 3.4 g/dL (3.8-4.8); ALPHA 1 GLOBULIN 0.4 g/dL (0.2-0.3); ALPHA 2 GLOBULIN 0.6 g/dL (0.5-0.9); BETA 1 GLOBULIN 0.3 g/dL (0.4-0.6); BETA 2 GLOBULIN 0.2 g/dL (0.2-0.5); GAMMA GLOBULIN 2.9 g/dL (0.8-1.7)
[2020-11-29] MEDS: acetaminophen 325 mg Tablet 650 MG PO (14:40)
[2020-11-29] MEDS: sodium chloride 0.9% 250 ML 75 ML IV (14:40)
[2020-11-29] MEDS: palonosetron 0.25 mg/5 mL SDV IVP (14:40)
[2020-11-29] MEDS: dexamethasone 4 mg Tablet 40 MG PO (14:40)
[2020-11-29] MEDS: famotidine 20 mg/2 mL INJ IVP (14:42)
[2020-11-29] MEDS: diphenhydrAMINE 50 mg/mL SDV 1mL 25 MG IVP (14:43)
[2020-11-29 15:13] LABS: KAPPA LIGHT CHAIN, FREE, SERUM 237.9 mg/L (3.3-19.4); KAPPA/LAMBDA LIGHT CHAINS FREE 27.34 (0.26-1.65); LAMBDA LIGHT CHAIN, FREE, SERU 8.7 mg/L (5.7-26.3)
--- NOTE | 2020-12-11 23:51 | ONC FU_ITS ---
[facility] Patient Note Patient: Larry Stephens Unit #: [id number]: 1945 Dictated By: Ann SheetsDate of Visit: Nov 29, 2020 Onc MED Follow-Up/Prog Note Chief Complaint: Multiple myeloma. History of Present Illness: Mr. Stephens s a 75 year-old man with relapsed IgA kappa myeloma. He has associated end-stage renal disease and anemia. He had pre-existing hypertension, hyperlipidemia, and type II diabetes. He had developed stage III chronic kidney disease following a colonoscopy prep. He had been seeing Dr. Miguelangel Cha for his nephrology follow-up care, and he was then found to have evidence of IgA kappa monoclonal gammopathy in October 2010. He was initially seen here by Dr. Plasencia in September 2011. At that point his protein electrophoresis showed IgA kappa monoclonal protein quantitating at 1.3 g/dL with 0.2 g/dL of free kappa monoclonal protein. UPEP was reportedly unrevealing. Bone marrow aspiration/biopsy showed 12% plasma cells. 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 There was no evidence of lytic bone involvement. His baseline creatinine was 1.8 mg/dL. He was treated initially with 3 cycles of Velcade/dexamethasone between October and December 2011. He required a dose reduction in the Velcade due to neuropathy. His repeat bone marrow aspiration/biopsy at [facility] on 01/01/2012 showed increase in the plasma cells to 17%. He then continued treatment at [facility] with autologous peripheral stem cell transplant in January 2012, I assume with high-dose melphalan, though it is not stated in the available records. The procedure was complicated by sepsis and acute renal failure requiring hemodialysis. He had subsequent relapse of the myeloma. His further treatment included 10 cycles of carfilzomib and dexamethasone beginning in May 2015. It was changed to carfilzomib, Revlimid, and dexamethasone beginning in January 2016 due to disease progression. Following further disease progression, his treatment was transitioned to carfilzomib, pomalidomide, and dexamethasone. As of October 2016, due to progressive kidney disease concerning for progressive myeloma, his treatment was changed to daratumumab, Revlimid, and dexamethasone. The Revlimid and dexamethasone were subsequently omitted due to toxicities, and he then continued daratumumab as a single agent. It was administered on a monthly schedule. During this time his kidney function had progressed to end-stage renal disease, and he began on home peritoneal dialysis. He had been receiving treatment at [facility]. He was seen here in October 2017 because he desired to continue his further treatment locally. Following his initial visit he continued monthly daratumumab infusions with no apparent adverse effects and no obvious progression of the myeloma. His hemoglobin/hematocrit levels remained stable above transfusion thresholds. On 06/25/2018 he was seen in the emergency room with increasing weakness. On evaluation, he was found to have a low B12 level at 168 pg/mL, and his TSH level was found to be elevated at 13.500 mIU/mL. He started B12 injections, and he also started thyroid replacement. As of 07/22/2018 there was further decline in the hemoglobin to 8.6 g, and at that point he did start treatment with Procrit. He had a very good response with his hemoglobin increasing to 12.2 g after 2 weekly injections. As of October 2018 he had opted to be admitted to the long-term, and he then began hemodialysis. At that point his erythropoietin stimulating agent was changed to Mircera. He then became progressively more anemic. As of 12/02/2018 his hemoglobin had stabilized at 7.9 g. He then restarted Procrit on 12/17/2018. During this time, he also had continued his monthly daratumumab infusions. His anemia did improve after restarting the Procrit. During follow-up his clinical status had otherwise remained stable. His protein electrophoresis had continued to show a very small M protein spike. There had been no significant change in his serum free light chains. 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 He continued on his monthly daratumumab infusions. As of 12/09/2019 he received cycle 38 of daratumumab. He had been tolerating the treatment well and his clinical status had been stable. However, he had been showing a very gradual increase in his M protein, in the kappa free light chain, and in the kappa/lambda ratio. I had discussed options for further treatment, and we ultimately decided to just try adding back carfilzomib. He began cycle 1 of daratumumab in combination with carfilzomib and dexamethasone on 03/01/2020. He tolerated the day 1 and day 2 carfilzomib infusions without acute toxicity. He was then able to continue with his day 7/8 and day 15/16 carfilzomib infusions on schedule, but he was not able to tolerate any dose escalation due to moderately severe thrombocytopenia. He then continued monthly cycles of treatment with the carfilzomib dosage unchanged. He began cycle 6 on 08/02/2020. His repeat protein electrophoresis studies on 08/22/2020 showed further increase in his M protein to 2.0 g/dL compared to 1.2 g/dL on 02/22/2020. During that same time period his serum free light chain assay showed an increase in the kappa/lambda ratio from 10.52 to 60.22. With continued evidence of disease progression, the daratumumab/carfilzomib regimen was stopped. Dr Pinto had seen him for a follow-up visit on 09/13/2020, at that time I reviewed other treatment options. As he was not having any obvious symptoms associated with the myeloma, he preferred to just continue observation/expectant management. His medical illnesses, in addition to myeloma and renal failure, include hypertension, hyperlipidemia, type II diabetes with peripheral neuropathy, and benign prostatic hypertrophy. He is a nonsmoker. INTERIM HISTORY: As of his follow-up visit in October 2020 his repeat protein electrophoresis showed significant increase in his M protein to 3.0 g/dL. At that point he was still stable clinically and he preferred not to attempt any of the available salvage therapies due to concerns over their potential side effects. He had subsequently developed increased pain in his lower back and pelvic area. A CT of the lumbar spine on 10/03/2020 had shown evidence of acute compression fracture involving the superior endplate of the L2 vertebral body but with minimal loss of vertebral body height. There was annual bulging at L4-5 with moderate central canal stenosis and slight anterolisthesis. Further evaluation with CT of the pelvis on 10/23/2020 showed diffuse demineralization with vague lytic lesions throughout the pelvis and sacrum, suspicious for myeloma or possibly metastatic disease. There is no apparent fracture in the right hip but there was suspected pathologic fracture involving the right inferior pubic ramus with a lytic lesion measuring 2.1 x 1.8 cm. He is seen for a follow-up visit. In view of the pelvic CT findings, he had radiation oncology consultation with Dr. Delgado on 11/01/2020, and he he has is being given palliative radiation to the right hip area today. He is still having a lot of pain in the lower back and right hip, but he is walking at the long-term. He had very poor tolerance for opiate pain medication, and he is trying to get by without having to take any. The pain is better now than it was. His ECOG score is 2. He still has good appetite. He has no fever or night sweats. He does not complain of shortness of breath, cough, or chest pain. He has no GI complaints. Bowel function remains adequate. He has just a little bit of urine output. He does not complain of headache or dizziness. He has numbness in his feet, but it is intermittent. He denies any new concerns. He has had no fever or chills. He denies any diarrhea or constipation. He is eager to start with the Melphalon/dexamethasoe/ flufenamude. Past Medical History: Benign prostatic hypertrophy End stage renal disease on home peritoneal dialysis Hyperlipidemia Hypertension Multiple myeloma Type II diabetes with peripheral neuropathy Past Surgical History: Colonoscopy Placement of peritoneal diaysis catheter Placement of portacath venous access device Fistula in left arm in 2019 Prevnar 13 in 2018 Cataract excision in 2016 Right inguinal hernia repair in 2007 Cholecystectomy in 1983 Allergies: Bactrim, Codeine Sulfate, Sulfa Antibiotics, TraMADol HCl, and Verapamil HCl. Medications: Acetaminophen 2 Tablet (of 325 mg) Oral four times a day PRN Acyclovir 1 Tablet (of 400 mg) Oral daily Albuterol Sulfate 1 Vial(s) (of (2.5 mg/3ml) 0.083%) Nebulization solution Inhalation t.i.d. PRN Albuterol Sulfate 1 Inhalation (of 108 (90 base) mcg/act) Aerosol Powder, Breath Activated Inhalation q 4 hours Allopurinol 1 Tablet (of 100 mg) Oral daily ALPRAZolam 1 Tablet (of 0.25 mg) Oral at bedtime amLODIPine Besylate 1 Tablet (of 2.5 mg) Oral daily Bisacodyl EC 2 Tablet (of 5 mg) Tablet, enteric coated Oral daily PRN Calcium Acetate 1 Capsule (of 667 mg) Oral t.i.d. Cipro 1 Tablet (of 500 mg) Oral b.i.d. Fluconazole 1 Tablet (of 100 mg) Oral daily Furosemide 1 Tablet (of 80 mg) Oral daily Gentamicin Sulfate 1 (0.1 %) Cream Topical at bedtime Levothyroxine Sodium 1 Tablet (of 50 mcg) Oral daily Loperamide HCl 1 - 2 Tablet (of 2 mg) Oral PRN Lovastatin 1 (40 mg) Tablet Oral at bedtime Metoprolol Succinate ER (25 mg) Tablet SR 24 HR Oral daily Mucinex 1 Tablet (of 600 mg) Tablet SR 12 HR Oral b.i.d. PRN Prochlorperazine Maleate 1 Tablet (of 10 mg) Oral q 6 hours PRN Renvela 3 (800 mg) Tablet Oral daily Requip 1 Tablet (of 0.5 mg) Oral b.i.d. Tamsulosin HCl 1 Tablet (of 0.4 mg) Capsule Oral b.i.d. Vital-D Rx 1 Tablet (of 1 mg) Oral daily Family History: Mr. Augusts mother at age 82: Breast Cancer at age 70. Mr. Stephens's father at age 40. Mr. Stephens's maternal grandmother at age 80: cancer history consists of Breast cancer at age 80 (cause of ). Father at age 40, cause unknown to the patient. Mother of breast cancer at age 82. His maternal grandmother also had breast cancer. Social History: Mr. Stephens is and he is retired. Mr. Stephens has never smoked. He has no history of drinking. He is a nonsmoker. He does not drink alcohol. Review Of Symptoms: Constitutional Denies fevers, chills, night sweats, excessive fatigue or weight loss. Allergic/Immunologic No reactions. Eyes Denies significant visual changes. No diplopia. No amaurosis. ENMT Denies changes in hearing, sore throat, mouth sores, difficulty or changes in swallowing ability, and/or sinus drainage. Endocrine No diabetes, thyroid disease or hormone replacement. Denies hot flashes or night sweats. Hematologic/Lymphatic Denies any new bruising or bleeding. The patient denies any tender or palpable lymph nodes. Respiratory Denies dyspnea on exertion, chest pain, cough or hemoptysis. Denies orthopnea. Cardiovascular Denies anginal chest pain, palpitations or orthopnea. Gastrointestinal Denies nausea, vomiting, GI bleeding, or constipation. Denies change in bowel habits and/or stool color, no heartburn or early satiety. Genitourinary (M) Denies hematuria, dysuria, increased frequency, urgency, hesitancy or incontinence. Musculoskeletal Denies joint pain, swelling or redness. No decreased range of motion. thoriac back pain- worse dh Integumentary Denies chronic rashes, inflammation, ulcerations or skin changes. Neurologic Denies headache, blurred vision, and no areas of focal weakness or numbness. Psychiatric Denies worsening insomnia-using Benadryl and Melatonin prn. Denies depression, brielle or mood swings. Vital Signs: Performed on Nov 29, 2020 13:08 Height - 69.00 in Weight - 167 lbs (HIGH) BSA - 1.91 sq.m BMI - 24.66 Temperature - 97.1 F (LOW) Pulse - 67 /min Respiration - 17 /min BP - 111/69 mm(hg) O2 Sat - 97 % Pain - 10,2 - Ambulatory/capable of all self-care, unable to perform any work activities. Up and about more than 50% of waking hours. (ECOG) Physical Examination: Constitutional Alert, oriented, no acute distress. Skin pink, warm and dry. Head Normocephalic; atraumatic. Eyes Conjunctivae and sclerae are clear and without icterus. ENMT No oral exudates, ulcers, masses, thrush or mucositis. Oropharynx clear. Tongue normal. Neck Supple without masses or thyromegaly. No jugular venous distension. Hematologic/Lymphatic No petechiae or purpura. Some bruising on hands-chronic Respiratory Lungs are clear to auscultation without rhonchi or wheezing. Cardiovascular Regular rate and rhythm of heart without murmurs,clicks, gallops or rubs. Abdomen Non-tender, non-distended, no masses, Back/Spine Non-tender to palpation. Extremities No visible deformities, no cyanosis, clubbing or edema. Left arm fistula is unremarkable-no active bleeding and no significant bruising. Musculoskeletal No tenderness or swelling, normal range of motion without obvious weakness. Integumentary No rashes or lesions. Extensive ecchymosis on both arms which is not new. Neurologic No sensory or motor deficits, normal cerebellar function, normal gait. Psychiatric Alert and oriented times three. Coherent speech. Verbalizes understanding of our discussions today. Laboratory:Test performed on Dec 05, 2020 06:46 Sodium 140 mmol/L Potassium 3.9 mmol/L Chloride 97 mmol/L CO2 30 mmol/L Anion Gap 16.9 BUN 56 mg/dL Creatinine 4.1 mg/dL Cr Clearance (Est) 16.9400 mL/min Glucose 83 mg/dL Osmolality - Calculated 305 mOsm/kg Calcium 7.8 mg/dL Protein, Total 7.6 g/dL Albumin 3.6 g/dL Globulin 4.0 g/dL Bilirubin, Total 0.8 mg/dL ALT (SGPT) 43 U/L AST (SGOT) 41 U/L Alkaline Phosphatase 121 IU/L WBC 1.3 10 3/uL RBC 2.46 10 6/uL HGB 8.9 g/dL HCT 28.1 % MCV 114.2 fL MCH 36.2 pg MCHC 31.7 g/dL RDW 25.1 % Platelet Count 34 10 3/cmm MPV 10.0 fL Neutrophils 0.81 10 3/uL Lymphocytes 0.3 10 3/uL Monocytes 0.0 10 3/uL Eosinophils 0.0 10 3/uL Basophils 0.0 10 3/uL Neutrophil % 63.3 % Lymphocyte % 25.0 % Monocyte % 2.3 % Eosinophil % 3.1 % Basophils % 0.0 % NRBC % 0 % CBC Slide Review Slide Review Perform SLIDE REVIEW AGREES WITH AUTOMATED RESULTS ST Test performed on Nov 27, 2020 15:55 Manual Lymphocytes 21.8 % Manual Monocytes 10.3 % Manual Eosinophils 5.5 % Manual Basophils 0.3 % IGA 2990 mg/dL IGG 300 mg/dL IGM 25 mg/dL Test performed on Nov 06, 2020 12:30 ABO & Rh Type # 2 OP Test performed on Nov 06, 2020 11:00 Anti-D Positive Blood Type OP Antibody Screen (Gel) NEGATIVE Test performed on Nov 01, 2020 00:00 Ferritin 1555 ng/mL Magnesium 2.1 mg/dL TSH 0.683 uU/mL % Iron Saturation 46 % Cholesterol, Total 49 mg/dL HDL Cholesterol 27 mg/dL Iron, Total 85 mcg/dL LDL Cholesterol 11 mg/dL TIBC 184 mcg/dL VLDL Cholesterol 11 mg/dL Triglycerides 53 mg/dL Test performed on Oct 31, 2020 07:22 Roma Free Light Chains 604.3 mg/L Lambda Free Light Chains 8.1 mg/L Roma/Lambda Free Ratio 74.60 Impression: 1. IgA kappa myeloma, initially diagnosed in September 2011. 2. During follow-up he had progression to end-stage renal disease. He initially had started daily home peritoneal dialysis, but with subsequent transition to hemodialysis. 3. Anemia associated with end-stage renal disease. 4. Hypertension. 5. Hyperlipidemia. 6. Type II diabetes with peripheral neuropathy. 7. Benign prostatic hypertrophy. 8. Hypothyroidism. Plan: 1. IgA kappa myeloma, initially diagnosed in September 2011. His myeloma therapy included: 1. Velcade/dexamethasone for 3 cycles, completed December 2011. 2. High-dose melphalan/stem cell transplant in January 2012, complicated by sepsis and acute renal failure requiring hemodialysis. 3. Carfilzomib/dexamethasone for 10 cycles, completed May 2015. 4. Carfilzomib/Revlimid/dexamethasone beginning in January 2016. 5. Carfilzomib/pomalidomide/dexamethasone. 6. Daratumumab/Revlimid/dexamethasone beginning in October 2016. 7. Daratumumab mon[place] until January 2020. 8. Carfilzomib/daratumumab/dexamethasone from 03/01/2020 through 08/31/2020. He had been showing gradual disease progression since September 2019, but has a October 2020 there was a more significant increase in his M protein level, to 3.0 g/dL. He was initially not overtly symptomatic, but he has now developed symptomatic bone involvement in the pelvis and possibly also the lumbar spine. He had previously been reluctant to continue with available salvage therapies due to concerns over side effects. We were able to obtain approval for melphalan flufenamide, a new drug just recently been approved as a salvage therapy for myeloma A. Proceed with day 1 of cycle 1 melphalan flufenamide every 28 days BUT at reduced dosing due to a platelet count of 50,000 today. This is a 28 day cycle. We will start with 1.2 of the recommended dose due to his chronic thrombocytopenia. His platelet count earlier in October 2020 was 38,000. He has had bruising but no matthew bleeding. B. Dexamethasone 40 mg orally weekly. C. TV times, D. He will need labs at least weekly labs. E, Follow-up plan A. He will have weekly interim labs to include CBC CMP. 9B. This is a 28-day cycle. He will return in 28 days with CBC CMP in the interim. He is also to do dexamethasone 40 mg daily. B. He will continue with dialysis at current plan. C. We will see him back in 1 week for labs only which include CBC CMP and CBC. We will plan to check his labs weekly and then again before his return visit in 4 weeks for cycle 2. D. Today's labs reviewed in detail and discussed with Mr. Stephens and a copy was given to him. WBC 2.9, hemoglobin 7.3, platelets 38,000 ANC is 1530. His potassium was reported at 3.2 but states he has not been taking his potassium tablets. Recent cardiac work-up was negative for any cardiac disease. Signed By: Rubina Sheets, CNP Dustin Pinto MD <<Signature on File>>
== END 2020-11-29 23:59 | disposition home or self-care (01) ==
LOC: ONCMED 08:11
PROVIDERS: Radiology Radiation Oncology; Absent Provider Radiology Radiation Oncology; PCP Physician Assistant; Visit Provider Nurse Practitioner
DX: C90.02 Multiple myeloma in relapse (principal); E11.22 Type 2 diabetes mellitus with diabetic chronic kidney disease; I12.0 Hypertensive chronic kidney disease with stage 5 chronic kidney disease or end stage renal disease; N18.6 End stage renal disease; D63.0 Anemia in neoplastic disease; D63.1 Anemia in chronic kidney disease; D69.59 Other secondary thrombocytopenia; T45.1X5A Adverse effect of antineoplastic and immunosuppressive drugs, initial encounter; Z94.84 Stem cells transplant status; Z99.2 Dependence on renal dialysis; Z92.3 Personal history of irradiation
CPT/HCPCS: 36430; 77290; 77295; 77300; 77334; 77387; 77412; 80053; 82784; 83883; 84155; 84165; 85025; 86850; 86900; 86920; 96375; 96413; 99024; 99214; 99215; J1200; J1940; J2469; J3490; J7050; J8540; J9999; P9016; P9040

== ENCOUNTER → 2020-12-05 08:25 | Outpatient (BNVA) | payer MEDICARE, OTHER, SELFPAY | PROVIDERS: PCP Physician Assistant; Referring Provider Internal Medicine Medical Oncology; Visit Provider Anesthesiology Pain Medicine | DX: M54.9 Dorsalgia, unspecified (principal); M47.816 Spondylosis without myelopathy or radiculopathy, lumbar region; C90.00 Multiple myeloma not having achieved remission; R10.2 Pelvic and perineal pain; M54.6 Pain in thoracic spine; S22.31XD Fracture of one rib, right side, subsequent encounter for fracture with routine healing; X58.XXXD Exposure to other specified factors, subsequent encounter | CPT/HCPCS: 99205 ==

== ENCOUNTER 2020-12-06 09:29 | Outpatient (CLI) | payer MEDICARE, OTHER, SELFPAY ==
[2020-12-05 08:22] LABS: Eosinophils % 3.1 %; Hematocrit 28.1 % (42.0-52.0); Hemoglobin 8.9 g/dL (11.7-16.6); Lymphocytes # 0.3 10^3/uL (0.8-4.8); Mean Corpuscular HGB Conc 31.7 g/dL (30.0-36.0); Mean Corpuscular Hemoglobin 36.2 pg (28.0-34.0); Mean Corpuscular Volume 114.2 fL (80-94); Monocytes % 2.3 %; Neutrophils % 63.3 %; Nucleated Red Blood Cells % 0 %; Platelet Count 34 10^3/cmm (130-400); Red Blood Count 2.46 10^6/uL (4.1-5.3); Red Cell Distribution Width 25.1 % (12.1-15.1); White Blood Count 1.3 10^3/uL (4.0-10.0)
[2020-12-05 08:43] LABS: Alanine Aminotransferase 43 U/L (0-41); Albumin Level 3.6 g/dL (3.5-5.2); Alkaline Phosphatase 121 IU/L (40-130); Anion Gap 16.9 (5-19); Aspartate Amino Transferase 41 U/L (0-40); Blood Urea Nitrogen 56 mg/dL (8-23); Calcium 7.8 mg/dL (8.5-10.5); Carbon Dioxide 30 mmol/L (22-29); Chloride 97 mmol/L (98-107); Glucose 83 mg/dL (65-115); Osmolality Calculated 305 mOsm/kg (285-295); Potassium 3.9 mmol/L (3.5-5.1); Sodium 140 mmol/L (136-145); Total Bilirubin 0.8 mg/dL (0.15-1.2); Total Protein 7.6 g/dL (6.6-8.7)
[2020-12-05 09:28] LABS: Neutrophils # 0.81 10^3/uL (1.8-7.7); Slide Review Slide Review Perform
== END 2020-12-06 09:30 | disposition home or self-care (01) ==
LOC: ONCMED 09:34
PROVIDERS: Absent Provider Radiology Radiation Oncology; PCP Physician Assistant; Visit Provider Nurse Practitioner
DX: C90.02 Multiple myeloma in relapse (principal); D69.6 Thrombocytopenia, unspecified
CPT/HCPCS: 80053; 85025

== ENCOUNTER 2020-12-07 07:10 | Outpatient (CLI) | payer MEDICARE, OTHER, SELFPAY ==
[2020-12-07 09:00] LABS: Eosinophils % 1.6 %; Hematocrit 27.1 % (42.0-52.0); Hemoglobin 8.7 g/dL (11.7-16.6); Lymphocytes # 0.3 10^3/uL (0.8-4.8); Lymphocytes % 43.8 %; Mean Corpuscular HGB Conc 32.1 g/dL (30.0-36.0); Mean Corpuscular Hemoglobin 36.7 pg (28.0-34.0); Mean Corpuscular Volume 114.3 fL (80-94); Mean Platelet Volume 12.1 fL (7.4-10.4); Monocytes % 3.1 %; Neutrophils % 51.5 %; Nucleated Red Blood Cells % 0 %; Platelet Count 31 10^3/cmm (130-400); Red Blood Count 2.37 10^6/uL (4.1-5.3); Red Cell Distribution Width 24.6 % (12.1-15.1)
[2020-12-07 09:27] LABS: Neutrophils # 0.33 10^3/uL (1.8-7.7); Slide Review Slide Review Perform; White Blood Count 0.6 10^3/uL (4.0-10.0)
== END 2020-12-07 07:11 | disposition home or self-care (01) ==
LOC: ONCMED 12-08 08:44
PROVIDERS: PCP Physician Assistant; Visit Provider Internal Medicine Medical Oncology
DX: Z51.81 Encounter for therapeutic drug level monitoring (principal); Z79.899 Other long term (current) drug therapy
CPT/HCPCS: 85025

== ENCOUNTER 2020-12-12 07:08 | Outpatient (CLI) | payer MEDICARE, OTHER, SELFPAY ==
[2020-12-12 11:52] LABS: Eosinophils % 1.6 %; Hematocrit 24.4 % (42.0-52.0); Hemoglobin 7.8 g/dL (11.7-16.6); Lymphocytes # 0.4 10^3/uL (0.8-4.8); Lymphocytes % 54.7 %; Mean Corpuscular Hemoglobin 37.1 pg (28.0-34.0); Mean Corpuscular Volume 116.2 fL (80-94); Mean Platelet Volume 11.3 fL (7.4-10.4); Monocytes # 0.1 10^3/uL (0.2-0.9); Monocytes % 14.1 %; Neutrophils % 29.6 %; Nucleated Red Blood Cells % 0 %; Red Cell Distribution Width 24.7 % (12.1-15.1)
[2020-12-12 12:12] LABS: Alanine Aminotransferase 24 U/L (0-41); Albumin Level 3.5 g/dL (3.5-5.2); Alkaline Phosphatase 116 IU/L (40-130); Anion Gap 14.3 (5-19); Aspartate Amino Transferase 18 U/L (0-40); Blood Urea Nitrogen 57 mg/dL (8-23); Calcium 8.1 mg/dL (8.5-10.5); Carbon Dioxide 30 mmol/L (22-29); Chloride 97 mmol/L (98-107); Globulin 3.1 g/dL (1.3-4.6); Glucose 76 mg/dL (65-115); Osmolality Calculated 299 mOsm/kg (285-295); Potassium 4.3 mmol/L (3.5-5.1); Sodium 137 mmol/L (136-145); Total Bilirubin 0.7 mg/dL (0.15-1.2); Total Protein 6.6 g/dL (6.6-8.7)
[2020-12-12 12:18] LABS: Platelet Count 17 10^3/cmm (130-400); White Blood Count 0.6 10^3/uL (4.0-10.0)
[2020-12-12 12:19] LABS: Neutrophils # 0.19 10^3/uL (1.8-7.7); Slide Review Slide Review Perform
== END 2020-12-12 07:09 | disposition home or self-care (01) ==
LOC: ONCMED 12-13 08:03
PROVIDERS: PCP Physician Assistant; Visit Provider Nurse Practitioner
DX: C90.02 Multiple myeloma in relapse (principal); D69.6 Thrombocytopenia, unspecified
CPT/HCPCS: 64493; 64494; 64495; 80053; 85025; J3490

== ENCOUNTER → 2020-12-12 12:35 | Outpatient (BNVA) | payer MEDICARE, OTHER, SELFPAY | PROVIDERS: PCP Physician Assistant; Visit Provider Anesthesiology Pain Medicine | DX: M47.816 Spondylosis without myelopathy or radiculopathy, lumbar region (principal); M54.9 Dorsalgia, unspecified | CPT/HCPCS: 64493; 64494; 64495 ==

== ENCOUNTER 2020-12-13 08:04 | Outpatient (CLI) | payer MEDICARE, OTHER, SELFPAY ==
[2020-12-13] VITALS (11 sets, daily range): BP systolic 107–124; BP diastolic 55–71; PULSE 61–76; RESP 18; TEMP 36.2–37.1; O2SAT 97–98
[2020-12-13] MEDS: acetaminophen 325 mg Tablet 650 MG PO (10:30)
[2020-12-13] MEDS: sodium chloride 0.9% 250 ML 999 ML IV (10:30)
[2020-12-13] MEDS: diphenhydrAMINE 25 mg Capsule PO (10:30)
[2020-12-13] MEDS: FUROsemide 10 mg/mL SDV 2mL 20 MG IV (13:30)
== END 2020-12-13 08:05 | disposition home or self-care (01) ==
LOC: ONCMED 08:08
PROVIDERS: PCP Physician Assistant; Visit Provider Internal Medicine Medical Oncology
DX: C90.02 Multiple myeloma in relapse (principal); D47.2 Monoclonal gammopathy; N18.6 End stage renal disease; Z99.2 Dependence on renal dialysis; D69.6 Thrombocytopenia, unspecified
CPT/HCPCS: 36430; 86850; 86900; 86920; J1940; J7050; P9040

== ENCOUNTER 2020-12-19 06:50 | Outpatient (CLI) | payer MEDICARE, OTHER, SELFPAY ==
[2020-12-19 07:39] LABS: Eosinophils % 1.9 %; Hematocrit 30.7 % (42.0-52.0); Hemoglobin 9.7 g/dL (11.7-16.6); Lymphocytes # 0.4 10^3/uL (0.8-4.8); Mean Corpuscular HGB Conc 31.6 g/dL (30.0-36.0); Mean Corpuscular Hemoglobin 35.1 pg (28.0-34.0); Mean Corpuscular Volume 111.2 fL (80-94); Monocytes # 0.2 10^3/uL (0.2-0.9); Monocytes % 17.1 %; Nucleated Red Blood Cells % 0 %; Red Blood Count 2.76 10^6/uL (4.1-5.3); White Blood Count 1.1 10^3/uL (4.0-10.0)
[2020-12-19 07:58] LABS: Neutrophils # 0.41 10^3/uL (1.8-7.7); Platelet Count 16 10^3/cmm (130-400)
[2020-12-19 08:00] LABS: Alanine Aminotransferase 20 U/L (0-41); Albumin Level 3.7 g/dL (3.5-5.2); Alkaline Phosphatase 148 IU/L (40-130); Aspartate Amino Transferase 20 U/L (0-40); Blood Urea Nitrogen 41 mg/dL (8-23); Calcium 8.1 mg/dL (8.5-10.5); Carbon Dioxide 33 mmol/L (22-29); Chloride 97 mmol/L (98-107); Glucose 76 mg/dL (65-115); Osmolality Calculated 299 mOsm/kg (285-295); Sodium 140 mmol/L (136-145); Total Bilirubin 0.7 mg/dL (0.15-1.2); Total Protein 6.7 g/dL (6.6-8.7)
== END 2020-12-19 06:51 | disposition home or self-care (01) ==
LOC: ONCMED 12-20 08:06
PROVIDERS: PCP Physician Assistant; Visit Provider Nurse Practitioner
DX: C90.02 Multiple myeloma in relapse (principal); N18.6 End stage renal disease; Z99.2 Dependence on renal dialysis
CPT/HCPCS: 80053; 85025

== ENCOUNTER 2020-12-26 06:45 | Outpatient (CLI) | payer MEDICARE, OTHER, SELFPAY ==
[2020-12-26 07:43] LABS: Alanine Aminotransferase 15 U/L (0-41); Albumin Level 3.8 g/dL (3.5-5.2); Alkaline Phosphatase 153 IU/L (40-130); Anion Gap 15.3 (5-19); Aspartate Amino Transferase 16 U/L (0-40); Blood Urea Nitrogen 37 mg/dL (8-23); Calcium 8.3 mg/dL (8.5-10.5); Carbon Dioxide 32 mmol/L (22-29); Chloride 95 mmol/L (98-107); Globulin 2.7 g/dL (1.3-4.6); Glucose 74 mg/dL (65-115); Osmolality Calculated 293 mOsm/kg (285-295); Potassium 4.3 mmol/L (3.5-5.1); Sodium 138 mmol/L (136-145); Total Bilirubin 0.6 mg/dL (0.15-1.2); Total Protein 6.5 g/dL (6.6-8.7)
[2020-12-26 07:44] LABS: Basophils % 0.7 %; Eosinophils % 0.7 %; Hematocrit 30.9 % (42.0-52.0); Hemoglobin 9.7 g/dL (11.7-16.6); Lymphocytes # 0.4 10^3/uL (0.8-4.8); Lymphocytes % 28.9 %; Mean Corpuscular HGB Conc 31.4 g/dL (30.0-36.0); Mean Corpuscular Hemoglobin 36.1 pg (28.0-34.0); Mean Corpuscular Volume 114.9 fL (80-94); Mean Platelet Volume 11.5 fL (7.4-10.4); Monocytes # 0.2 10^3/uL (0.2-0.9); Monocytes % 14.1 %; Neutrophils % 55.6 %; Nucleated Red Blood Cells % 0 %; Platelet Count 48 10^3/cmm (130-400); Red Blood Count 2.69 10^6/uL (4.1-5.3); Red Cell Distribution Width 25.5 % (12.1-15.1); White Blood Count 1.5 10^3/uL (4.0-10.0)
[2020-12-26 07:49] LABS: Neutrophils # 0.83 10^3/uL (1.8-7.7)
[2021-01-02 07:57] LABS: Eosinophils # 0.1 10^3/uL (0.0-0.8); Eosinophils % 3.1 %; Hematocrit 32.3 % (42.0-52.0); Hemoglobin 10.2 g/dL (11.7-16.6); Lymphocytes # 0.4 10^3/uL (0.8-4.8); Lymphocytes % 22.2 %; Mean Corpuscular HGB Conc 31.6 g/dL (30.0-36.0); Mean Corpuscular Hemoglobin 36.4 pg (28.0-34.0); Mean Corpuscular Volume 115.4 fL (80-94); Mean Platelet Volume 10.7 fL (7.4-10.4); Monocytes # 0.3 10^3/uL (0.2-0.9); Monocytes % 16.5 %; Neutrophils % 56.7 %; Nucleated Red Blood Cells % 0 %; Platelet Count 91 10^3/cmm (130-400); Red Cell Distribution Width 25.5 % (12.1-15.1); White Blood Count 1.9 10^3/uL (4.0-10.0)
[2021-01-02 08:15] LABS: Alanine Aminotransferase 17 U/L (0-41); Albumin Level 3.7 g/dL (3.5-5.2); Alkaline Phosphatase 137 IU/L (40-130); Aspartate Amino Transferase 16 U/L (0-40); Blood Urea Nitrogen 37 mg/dL (8-23); Calcium 8.3 mg/dL (8.5-10.5); Carbon Dioxide 32 mmol/L (22-29); Chloride 97 mmol/L (98-107); Globulin 2.5 g/dL (1.3-4.6); Glucose 79 mg/dL (65-115); Osmolality Calculated 296 mOsm/kg (285-295); Sodium 139 mmol/L (136-145); Total Bilirubin 0.7 mg/dL (0.15-1.2); Total Protein 6.2 g/dL (6.6-8.7)
== END 2020-12-26 06:46 | disposition home or self-care (01) ==
LOC: ONCMED 12-27 08:40
PROVIDERS: PCP Physician Assistant; Visit Provider Nurse Practitioner
DX: C90.02 Multiple myeloma in relapse (principal); N18.6 End stage renal disease; Z99.2 Dependence on renal dialysis
CPT/HCPCS: 80053; 85025

== ENCOUNTER → 2020-12-29 13:15 | Outpatient (BNVA) | payer MEDICARE, OTHER, SELFPAY | PROVIDERS: PCP Physician Assistant; Visit Provider Anesthesiology Pain Medicine | DX: C90.00 Multiple myeloma not having achieved remission (principal); M54.9 Dorsalgia, unspecified; M47.816 Spondylosis without myelopathy or radiculopathy, lumbar region; R10.2 Pelvic and perineal pain; R07.9 Chest pain, unspecified; Z79.891 Long term (current) use of opiate analgesic | CPT/HCPCS: 99214 ==

== ENCOUNTER 2021-01-02 06:00 | Outpatient (CLI) | payer MEDICARE, OTHER, SELFPAY | END 2021-01-02 06:01 | disposition home or self-care (01) | LOC: ONCMED 01-03 07:27 | PROVIDERS: PCP Physician Assistant; Visit Provider Internal Medicine Medical Oncology | DX: C90.02 Multiple myeloma in relapse (principal); N18.6 End stage renal disease; Z99.2 Dependence on renal dialysis; D47.2 Monoclonal gammopathy | CPT/HCPCS: 80053; 85025 ==

== ENCOUNTER 2021-01-03 06:26 | Outpatient (CLI) | payer MEDICARE, OTHER, SELFPAY ==
--- NOTE | 2021-01-03 20:36 | ONC FU_ITS ---
Dr. Pinto Patient Follow-Up Note Patient: Larry Stephens Unit #: [id number]: 1945 Dicatated By: Dustin Pinto M.D.Date of Visit:January 03, 2021 Onc Med Follow-up/Prog Note Chief Complaint: Multiple myeloma. History of Present Illness: This is a 75 year-old man with relapsed IgA kappa myeloma. He has associated end-stage renal disease and anemia. He had pre-existing hypertension, hyperlipidemia, and type II diabetes. He had developed stage III chronic kidney disease following a colonoscopy prep. He had been seeing Dr. Miguelangel Cha for his nephrology follow-up care, and he was then found to have evidence of IgA kappa monoclonal gammopathy in October 2010. He was initially seen here by Dr. Plasencia in September 2011. At that point his protein electrophoresis showed IgA kappa monoclonal protein quantitating at 1.3 g/dL with 0.2 g/dL of free kappa monoclonal protein. UPEP was reportedly unrevealing. Bone marrow aspiration/biopsy showed 12% plasma cells. 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 There was no evidence of lytic bone involvement. His baseline creatinine was 1.8 mg/dL. He was treated initially with 3 cycles of Velcade/dexamethasone between October and December 2011. He required a dose reduction in the Velcade due to neuropathy. His repeat bone marrow aspiration/biopsy at [facility] on 01/01/2012 showed increase in the plasma cells to 17%. He then continued treatment at [facility] with autologous peripheral stem cell transplant in January 2012, I assume with high-dose melphalan, though it is not stated in the available records. The procedure was complicated by sepsis and acute renal failure requiring hemodialysis. He had subsequent relapse of the myeloma. His further treatment included 10 cycles of carfilzomib and dexamethasone beginning in May 2015. It was changed to carfilzomib, Revlimid, and dexamethasone beginning in January 2016 due to disease progression. Following further disease progression, his treatment was transitioned to carfilzomib, pomalidomide, and dexamethasone. As of October 2016, due to progressive kidney disease concerning for progressive myeloma, his treatment was changed to daratumumab, Revlimid, and dexamethasone. The Revlimid and dexamethasone were subsequently omitted due to toxicities, and he then continued daratumumab as a single agent. It was administered on a monthly schedule. During this time his kidney function had progressed to end-stage renal disease, and he began on home peritoneal dialysis. He had been receiving treatment at [facility]. He was seen here in October 2017 because he desired to continue his further treatment locally. Following his initial visit he continued monthly daratumumab infusions with no apparent adverse effects and no obvious progression of the myeloma. His hemoglobin/hematocrit levels remained stable above transfusion thresholds. On 06/25/2018 he was seen in the emergency room with increasing weakness. On evaluation, he was found to have a low B12 level at 168 pg/mL, and his TSH level was found to be elevated at 13.500 mIU/mL. He started B12 injections, and he also started thyroid replacement. As of 07/22/2018 there was further decline in the hemoglobin to 8.6 g, and at that point he did start treatment with Procrit. He had a very good response with his hemoglobin increasing to 12.2 g after 2 weekly injections. As of October 2018 he had opted to be admitted to the care home, and he then began hemodialysis. At that point his erythropoietin stimulating agent was changed to Mircera. He then became progressively more anemic. As of 12/02/2018 his hemoglobin had stabilized at 7.9 g. He then restarted Procrit on 12/17/2018. During this time, he also had continued his monthly daratumumab infusions. His anemia did improve after restarting the Procrit. During follow-up his clinical status had otherwise remained stable. His protein electrophoresis had continued to show a very small M protein spike. There had been no significant change in his serum free light chains. 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 He continued on his monthly daratumumab infusions. As of 12/09/2019 he received cycle 38 of daratumumab. He had been tolerating the treatment well and his clinical status had been stable. However, he had been showing a very gradual increase in his M protein, in the kappa free light chain, and in the kappa/lambda ratio. I had discussed options for further treatment, and we ultimately decided to just try adding back carfilzomib. He began cycle 1 of daratumumab in combination with carfilzomib and dexamethasone on 03/01/2020. He tolerated the day 1 and day 2 carfilzomib infusions without acute toxicity. He was then able to continue with his day 7/8 and day 15/16 carfilzomib infusions on schedule, but he was not able to tolerate any dose escalation due to moderately severe thrombocytopenia. He then continued monthly cycles of treatment with the carfilzomib dosage unchanged. He began cycle 6 on 08/02/2020. His repeat protein electrophoresis studies on 08/22/2020 showed further increase in his M protein to 2.0 g/dL compared to 1.2 g/dL on 02/22/2020. During that same time period his serum free light chain assay showed an increase in the kappa/lambda ratio from 10.52 to 60.22. With continued evidence of disease progression, the daratumumab/carfilzomib regimen was stopped. I had seen him for a follow-up visit on 09/13/2020, at that time I reviewed other treatment options. As he was not having any obvious symptoms associated with the myeloma, he preferred to just continue observation/expectant management. His medical illnesses, in addition to myeloma and renal failure, include hypertension, hyperlipidemia, type II diabetes with peripheral neuropathy, and benign prostatic hypertrophy. He is a nonsmoker. INTERIM HISTORY: As of his follow-up visit in October 2020 his repeat protein electrophoresis showed significant increase in his M protein to 3.0 g/dL. At that point he was still stable clinically and he preferred not to attempt any of the available salvage therapies due to concerns over their potential side effects. He had subsequently developed increased pain in his lower back and pelvic area. A CT of the lumbar spine on 10/03/2020 had shown evidence of acute compression fracture involving the superior endplate of the L2 vertebral body but with minimal loss of vertebral body height. There was annual bulging at L4-5 with moderate central canal stenosis and slight anterolisthesis. Further evaluation with CT of the pelvis on 10/23/2020 showed diffuse demineralization with vague lytic lesions throughout the pelvis and sacrum, suspicious for myeloma or possibly metastatic disease. There is no apparent fracture in the right hip but there was suspected pathologic fracture involving the right inferior pubic ramus with a lytic lesion measuring 2.1 x 1.8 cm. He had radiation oncology consultation with Dr. Delgado on 11/01/2020, and he was given palliative radiation to the right hip area. His clinical course was complicated by significant [employer] toxicity associated with opiate pain medication. He was able to complete his radiation on 11/07/2020 to a total dose of 800 cGy administered in a single fraction. He had a follow-up visit with Dr. Goncalves on 11/27/2020. At that time his right hip pain had improved, but he was reporting severe pain in the low back area. In the absence of any known lytic disease in that area, he was referred to pain management. He subsequently was given a lumbar medial branch block and cervical/thoracic medial branch block on 12/12/2020. In the meantime, we were able to get him approved for a trial of salvage therapy with melphalan flufenamide. He began cycle 1 on 11/29/2020. It was administered at reduced dosage because of his low baseline platelet count. He has not been feeling good, mainly due to persistent pain in his lower back. It radiates to the posterior right hip area. He indicates that he did not get any benefit with the injections. He has very limited activity. ECOG score is 3. He still has good appetite. He has no fever or night sweats. He has had no mouth sores. He has no shortness of breath, cough, or chest pain. He has been having a little diarrhea, which may be treatment related. He has no other GI complaints. He has very little urine output now. He does not complain of headache or dizziness. He has numbness in his feet, but that is not new. He has a lot of bruising, that also is chronic. He has had no other bleeding manifestations. Medications: Acetaminophen 2 Tablet (of 325 mg) Oral four times a day PRN, Acyclovir 1 Tablet (of 400 mg) Oral daily, Albuterol Sulfate 1 Vial(s) (of (2.5 mg/3ml) 0.083%) Nebulization solution Inhalation t.i.d. PRN, Albuterol Sulfate 1 Inhalation (of 108 (90 base) mcg/act) Aerosol Powder, Breath Activated Inhalation q 4 hours, Allopurinol 1 Tablet (of 100 mg) Oral daily, ALPRAZolam 1 Tablet (of 0.25 mg) Oral at bedtime, amLODIPine Besylate 1 Tablet (of 2.5 mg) Oral daily, Bisacodyl EC 2 Tablet (of 5 mg) Tablet, enteric coated Oral daily PRN, Calcium Acetate 1 Capsule (of 667 mg) Oral t.i.d., Cipro 1 Tablet (of 500 mg) Oral b.i.d., Fluconazole 1 Tablet (of 100 mg) Oral daily, Furosemide 1 Tablet (of 80 mg) Oral daily, Gentamicin Sulfate 1 (0.1 %) Cream Topical at bedtime, Levothyroxine Sodium 1 Tablet (of 50 mcg) Oral daily, Loperamide HCl 1 - 2 Tablet (of 2 mg) Oral PRN, Lovastatin 1 (40 mg) Tablet Oral at bedtime, Metoprolol Succinate ER (25 mg) Tablet SR 24 HR Oral daily, Mucinex 1 Tablet (of 600 mg) Tablet SR 12 HR Oral b.i.d. PRN, Prochlorperazine Maleate 1 Tablet (of 10 mg) Oral q 6 hours PRN, Renvela 3 (800 mg) Tablet Oral daily, Requip 1 Tablet (of 0.5 mg) Oral b.i.d., Tamsulosin HCl 1 Tablet (of 0.4 mg) Capsule Oral b.i.d., Vital-D Rx 1 Tablet (of 1 mg) Oral daily Allergies: Bactrim, Codeine Sulfate, Sulfa Antibiotics, TraMADol HCl, and Verapamil HCl. Vital Signs: Performed on January 03, 2021 15:01 Height - 69.00 in Weight - 148.6 lbs (LOW) BSA - 1.82 sq.m BMI - 21.94 Temperature - 98.0 F (LOW) Pulse - 68 /min Respiration - 18 /min BP - 117/43 mm(hg) O2 Sat - 99 % Pain - 10 Fatigue - 8 Physical Examination: Constitutional - He appears generally weak, Eyes - Sclerae nonicteric. Conjunctivae clear, ENMT - No lesions noted in the oral cavity, Hematologic/Lymphatic - No cervical, clavicular, or axillary adenopathy, Respiratory - Lungs are clear with good air movement bilaterally, Cardiovascular - Heart rhythm is regular. There is a II/ systolic murmur. There is no gallop or rub noted, Abdomen - Soft. Liver and spleen are not enlarged. There is no abdominal mass or ascites noted and there is no inguinal adenopathy, Extremities - No edema. He has extensive purpura, Neurologic - No focal neurologic deficits noted. Lab/Imaging: CBC shows hemoglobin up to 10.2 g with hematocrit 32%. The white blood cell count is still moderately decreased at 1900 with absolute neutrophil count 1100. The platelet count has increased to 91,000 compared to a pretreatment level of 50,000. Comprehensive metabolic profile is unremarkable except for slightly elevated alkaline phosphatase of 137/130 IU/L. The protein electrophoresis studies are pending. Problem List: 1. IgA kappa myeloma, initially diagnosed in September 2011. 2. During follow-up he had progression to end-stage renal disease. He initially had started daily home peritoneal dialysis, but with subsequent transition to hemodialysis. 3. Anemia associated with end-stage renal disease. 4. Hypertension. 5. Hyperlipidemia. 6. Type II diabetes with peripheral neuropathy. 7. Benign prostatic hypertrophy. 8. Hypothyroidism. Problems Addressed with this Encounter and Plan: 1. IgA kappa myeloma, initially diagnosed in September 2011. His myeloma therapy included: 1. Velcade/dexamethasone for 3 cycles, completed December 2011. 2. High-dose melphalan/stem cell transplant in January 2012, complicated by sepsis and acute renal failure requiring hemodialysis. 3. Carfilzomib/dexamethasone for 10 cycles, completed May 2015. 4. Carfilzomib/Revlimid/dexamethasone beginning in January 2016. 5. Carfilzomib/pomalidomide/dexamethasone. 6. Daratumumab/Revlimid/dexamethasone beginning in October 2016. 7. Daratumumab monotherapy until January 2020. 8. Carfilzomib/daratumumab/dexamethasone from 03/01/2020 through 08/31/2020. He had been showing gradual disease progression since September 2019, but has a October 2020 there was a more significant increase in his M protein level, to 3.0 g/dL. He was initially not overtly symptomatic, but he subsequently developed symptomatic bone involvement in the pelvis. He had associated pathologic fracture. He was given palliative radiation to the right hip area, completed on 11/07/2020 to a total dose of 800 cGy administered in a single fraction. In the meantime, we were able to get approval for a trial of salvage therapy with melphalan flufenamide. He began cycle 1 on 11/29/2020. It was administered at a reduced dosage due to baseline thrombocytopenia. During followup his platelet count nadired at 16,000. He had no bleeding. His dory granulocyte count was 600. He has uneventful recovery, but he remains moderately neutropenic. His 2nd cycle of treatment will be delayed pending further recovery. 2. He has had progressively worsening anemia. He will be transfused transfused PRBC as needed. 3. 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 Management is problematic due to very poor tolerance for opiate pain medication. His previous CT of the lumbar spine did show no obvious lytic lesions, but there were vertebral compression fractures, which potentially could indicate myelomatous involvement. As such, he will be scheduled for MRI of the lumbar spine and if it does appear to be involved with myeloma he may benefit with additional palliative radiation. In the meantime, I will have him try hydromorphone at a very low dosage, 1 mg up to every 6 hours as needed. Signed By: Dustin Pinto M.D. <<Signature on File>>
== END 2021-01-03 06:27 | disposition home or self-care (01) ==
LOC: ONCMED 06:29
PROVIDERS: PCP Physician Assistant; Visit Provider Internal Medicine Medical Oncology
DX: C90.02 Multiple myeloma in relapse (principal); N18.6 End stage renal disease; Z99.2 Dependence on renal dialysis; D63.1 Anemia in chronic kidney disease; I12.0 Hypertensive chronic kidney disease with stage 5 chronic kidney disease or end stage renal disease; E78.5 Hyperlipidemia, unspecified; E11.42 Type 2 diabetes mellitus with diabetic polyneuropathy; E11.22 Type 2 diabetes mellitus with diabetic chronic kidney disease; N40.0 Benign prostatic hyperplasia without lower urinary tract symptoms; E03.9 Hypothyroidism, unspecified; M54.5 Low back pain; Z79.899 Other long term (current) drug therapy; Z92.21 Personal history of antineoplastic chemotherapy; Z92.3 Personal history of irradiation
CPT/HCPCS: 99215

== ENCOUNTER 2021-01-18 06:58 | Outpatient (CLI) | payer MEDICARE, OTHER, SELFPAY ==
[2021-01-18 12:19] LABS: Basophils % 0.5 %; Eosinophils # 0.2 10^3/uL (0.0-0.8); Eosinophils % 5.2 %; Hematocrit 38.6 % (42.0-52.0); Hemoglobin 12.4 g/dL (11.7-16.6); Lymphocytes # 0.5 10^3/uL (0.8-4.8); Lymphocytes % 12.7 %; Mean Corpuscular HGB Conc 32.1 g/dL (30.0-36.0); Mean Corpuscular Hemoglobin 38.3 pg (28.0-34.0); Mean Corpuscular Volume 119.1 fL (80-94); Monocytes # 0.5 10^3/uL (0.2-0.9); Monocytes % 12.5 %; Neutrophils # 2.92 10^3/uL (1.8-7.7); Neutrophils % 68.9 %; Nucleated Red Blood Cells % 0 %; Platelet Count 91 10^3/cmm (130-400); Red Blood Count 3.24 10^6/uL (4.1-5.3); Red Cell Distribution Width 22.1 % (12.1-15.1); White Blood Count 4.2 10^3/uL (4.0-10.0)
[2021-01-18 12:44] LABS: Alanine Aminotransferase 25 U/L (0-41); Alkaline Phosphatase 126 IU/L (40-130); Anion Gap 18.1 (5-19); Aspartate Amino Transferase 23 U/L (0-40); Blood Urea Nitrogen 31 mg/dL (8-23); Calcium 8.2 mg/dL (8.5-10.5); Carbon Dioxide 29 mmol/L (22-29); Chloride 96 mmol/L (98-107); Globulin 2.5 g/dL (1.3-4.6); Glucose 52 mg/dL (65-115); Osmolality Calculated 292 mOsm/kg (285-295); Potassium 4.1 mmol/L (3.5-5.1); Sodium 139 mmol/L (136-145); Total Bilirubin 0.6 mg/dL (0.15-1.2); Total Protein 6.5 g/dL (6.6-8.7)
== END 2021-01-18 06:59 | disposition home or self-care (01) ==
LOC: ONCMED 01-19 09:43
PROVIDERS: PCP Physician Assistant; Visit Provider Internal Medicine Medical Oncology
DX: C90.02 Multiple myeloma in relapse (principal); N18.6 End stage renal disease; Z99.2 Dependence on renal dialysis; D47.2 Monoclonal gammopathy; Z79.899 Other long term (current) drug therapy
CPT/HCPCS: 80053; 85025

== ENCOUNTER 2021-01-23 08:06 | Outpatient (CLI) | payer MEDICARE, OTHER, SELFPAY ==
--- NOTE | 2021-01-23 08:28 | MR_ITS ---
WS: [id number] MRI LUMBAR SPINE WITH CONTRAST TECHNIQUE: Sagittal T1, T2 and STIR imaging. Axial T1 and T2 imaging. Post gadolinium imaging was obt ained. CLINICAL INFORMATION: MYELOMA, BACK PAIN COMPARISON: CT October 03, 2020 FINDINGS: Mild lumbar curve. Multilevel degenerative disc disease. Previously described subacute L2 superior en dplate compression fracture. No significant edema. Multiple new compression fractures today compared to the prior CT. Mild biconcave compression L3 and L4 vertebral bodies appears new since the prior CT October 2020. Mild compression superior endplate L5 vertebral body also appears new. Compression more prominent along the inferior L4 endplate. No ret ropulsion. Mild compression along the L1 inferior endplate also appears new. Mild anterior wedging at T11 and T12 with mild compression superior endplates. Minimal edema associated with the new compress ion fractures consistent with subacute compression Anterior wedging in the mid thoracic spine. Small amount of edema in the posterior T8 vertebral body. This can be further with thoracic spine MRI. L1-L2: Mild annular bulging. Slight narrowing of the left subarticular recess. Foramen are patent. Mi ld facet arthropathy. L2-L3: Mild disc bulging with osteophytic ridging. Narrowing of the subarticular recess bilaterally. Foramen are patent. Moderate facet arthropathy. L3-L4: Mild disc bulging and osteophytic ridging. Narrowing of the subarticular recess bilaterally. M ild left foraminal narrowing. Mild/moderate facet arthropathy. L4-L5: Grade 1 anterolisthesis. Mild disc bulging with a tiny shallow central protrusion. Moderate ce ntral canal stenosis. Impingement traversing L5 nerve roots. Moderate right and mild left foraminal n arrowing. Moderate facet arthropathy. L5-S1: Mild disc bulging with osteophytic ridging. Mild right and no significant left foraminal narro wing. Mild facet arthropathy. Slight contact of the traversing S1 nerve roots bilaterally. Bilateral renal cortical atrophy. Partially visualized left renal cyst. MR/MR lumbar spine wo/w con [id number] IMPRESSION: 1. Diffuse heterogeneous bone marrow signal consistent with history of multipl e myeloma. 2. Previously described subacute L2 superior endplate compression unchanged th e prior CT. 3. Numerous new mild compression fractures lower thoracic and lumbar spine wit h minimal edema. These are likely subacute in chronicity. Mild compression of t he inferior endplate L1, biconcave compression L3 and L4. Mild compression supe rior endplate L5 all appear new since October 2020. 4. Anterior wedging with mild compression superior endplates at T11 and T12. M inimal edema. Not included on the prior lumbar CT. 5. Moderate central canal stenosis L4-5 with slight anterolisthesis unchanged from previous with impingement traversing L5 nerve roots. 6. Anterior wedging in the mid thoracic spine. Small amount of edema in the po sterior T8 vertebral body. This can be further with thoracic spine MRI.
[2021-01-23] MEDS: gadobenate dimeglumine 20 mL vial IV (10:07)
== END 2021-01-23 08:07 | disposition home or self-care (01) ==
PROVIDERS: PCP Physician Assistant; Visit Provider Internal Medicine Medical Oncology
DX: C90.00 Multiple myeloma not having achieved remission (principal); M54.5 Low back pain; M48.061 Spinal stenosis, lumbar region without neurogenic claudication; S22.009A Unspecified fracture of unspecified thoracic vertebra, initial encounter for closed fracture; S32.009A Unspecified fracture of unspecified lumbar vertebra, initial encounter for closed fracture; X58.XXXA Exposure to other specified factors, initial encounter
CPT/HCPCS: 72158; A9577

== ENCOUNTER 2021-01-24 06:28 | Outpatient (CLI) | payer MEDICARE, OTHER, SELFPAY ==
[2021-01-24] MEDS: acetaminophen 325 mg Tablet 650 MG PO (13:55)
[2021-01-24] MEDS: palonosetron 0.25 mg/5 mL SDV IV (13:57)
[2021-01-24] MEDS: famotidine 20 mg/2 mL INJ IVP (13:58)
[2021-01-24] MEDS: diphenhydrAMINE 50 mg/mL SDV 1mL 25 MG IV (13:59)
[2021-01-24] MEDS: dexamethasone 4 mg Tablet 40 MG PO (14:20)
== END 2021-01-24 06:29 | disposition home or self-care (01) ==
LOC: ONCMED 06:30
PROVIDERS: PCP Physician Assistant; Visit Provider Nurse Practitioner
DX: C90.00 Multiple myeloma not having achieved remission (principal); N18.6 End stage renal disease; Z99.2 Dependence on renal dialysis; D63.1 Anemia in chronic kidney disease; Z79.899 Other long term (current) drug therapy
CPT/HCPCS: 96375; 96413; J1200; J2469; J3490; J7050; J8540; J9999

== ENCOUNTER 2021-01-25 10:24 | Outpatient (RCR) | payer MEDICARE, OTHER, SELFPAY ==
--- NOTE | 2021-01-25 | CT_ITS ---
Radiation Therapy Planning CT images; total exam DLP: 863.96 mGy-cm MTDD
--- NOTE | 2021-02-05 14:02 | ONCRAD EPV_ITS ---
Radiation Oncology Established Patient Visit Patient: Larry Stephens [id number] : 1945 Age: 75 Sex: Male Dictated by: Dr. Glenn Delgado Date of Service: 01/25/2021 Referring Physician(s) : Boo Scott M.D. Diagnosis: N18.6 - End stage renal disease on dialysis, Diagnosed 12/08/2017 (Active) C90.02 - Multiple myeloma in relapse, Diagnosed 11/26/2017 (Active) 273.1 - Monoclonal paraproteinemia, Diagnosed 09/01/1799 (Active) Radiotherapy to Date: Course: RT Hip 2020, Treatment Site: RT Hip8Gy, Ref. ID: [id number], Energy: 15X, Dose/Fx (cGy): 800, #Fx: , Dose Correction (cGy): 0, Total Dose (cGy): 800, Start Date: 11/07/2020, End Date: 11/07/2020, Elapsed Days: 0 Current History: 75-year-old gentleman with longstanding relapsing multiple myeloma. Diagnosis was initiated in September 2011. He is now on a sequence of systemic treatment with disease progression including stem cell transplant in January 2012 complicated by sepsis and renal failure. His most recent treatment now includes melphalan flufenamide. He had previous treatment here to the right hip receiving 8 Gy in 1 fraction in October 2020 now returns to address additional palliative radiation therapy for controlling his disease related low back pain. On November 08, 2011 he received a Winters to the right hip following an initial episode of hip burning pain the pain in the right hip resolved. This has improved his ambulation significantly. He notes ongoing low back pain in the inferior thoracic lumbar region over the last 6 months. Pain is worse when ambulating without his walker. He has had poor tolerance of narcotics in the past but now is tolerating Dilaudid which has improved his pain as well. He has no lower extremity numbness or weakness. He does note chronic lower extremity swelling treated with compression stockings. He is eating well. He does monitor his oral intake carefully as he has diet-controlled diabetes. He no longer requires insulin due to his careful diet control. He has ongoing hemodialysis Friday and Friday. He continues to live in assisted living where he feels like a prisoner as they are very restrictive in his freedoms due to concern over Covid. Current Medications: Acetaminophen, acetaminophen, acyclovir, acyclovir, albuterol Sulfate, albuterol Sulfate, allopurinol, aloxi, aLPRAZolam, amLODIPine Besylate, bisacodyl EC, calcium Acetate, cipro, cipro, dexamethasone, diphenhydrAMINE HCl, famciclovir, famotidine, fluconazole, fluconazole, furosemide, gentamicin Sulfate, hYDROmorphone HCl, lasix, levothyroxine Sodium, loperamide HCl, lovastatin, melphalan Flufenamide, metoprolol Succinate ER, mucinex, prochlorperazine Maleate, renvela, requip, synthroid, tamsulosin HCl, vital-D Rx. Allergies: Codeine Sulfate, Bactrim, TraMADol HCl, Sulfa Antibiotics and Verapamil HCl. Current Complaints / Review of Systems: . Vital Signs: Performed on 01/25/2021 11:38 AM BMI - 22.653 kg/m2, Height - 69.00 in, Weight - 153.4 lbs, Temperature - 98.6 f, Pulse - 80, Respiration - 18, O2 Sat - 96 %, Pain - 9, Fatigue - 9 and BP - 122/ 67 mm(hg). Physical Exam: Chronically ill pleasant alert cooperative gentleman in no acute distress. He had no palpable cervical or supraclavicular adenopathy. He had no percussion tenderness across his inferior thoracic and lumbar spine. Lower extremity strength was intact sensation intact to light touch. He had minimal pedal edema bilaterally compression socks were in place. He ambulated well with no antalgia seen with the assistance of a walker. Performance Status: 3 - Capable of only limited self-care, confined to bed or chair more than 50% of waking hours. (ECOG) Lab: None pending. Most recent CBC hemoglobin 10.2 white count 1900 platelet count 91,000 from early December 2020 Pathology: Primary, n18.6 - end stage renal disease on dialysis, Diagnosed 12/08/2017 (active), Primary, c90.02 - multiple myeloma in relapse, Diagnosed 11/26/2017 (active) and Primary, 273.1 - monoclonal paraproteinemia, Diagnosed 09/01/1799 (active). Imaging: MRI scan of the lumbar spine obtained here on January 23, 2021 there was multiple new compression fractures compared to the prior CT scan with compression at L3 and L4 seen mild compression of the superior endplate of L5 Mork prominent compression along the inferior aspect of L4 there was diffuse heterogeneous bone marrow signal consistent with diffuse multiple myeloma there was anterior wedging with mild compression superior endplates at T11 and T12 moderate central stenosis L4-L5 unchanged with the previously noted subacute L2 superior endplate fracture as well Impression: In summary my impression is that of ongoing progression of multiple myeloma. He has significant symptomatic involvement of his inferior thoracic and lumbar spine. A limited short course of radiation to this region is warranted to improve his pain. He can arrange to have treatment over 5 consecutive days in the afternoon after morning dialysis occurs on Friday and Friday. At this time I recommend 15 Winters in 5 fractions. This total dose will be well-tolerated will remain below marrow tolerance and will likely achieve improvement in his pain. He can also continue with his systemic treatment through treatment Anticipate simulation will occur today after consultation with treatment to start next week Signed by: 02/05/2021 2:00:19 PM <<Signature on File>> Time spent with patient: CPT Code: CPT Code:
== END 2021-01-29 23:59 | disposition home or self-care (01) ==
LOC: ONCMED 10:24
PROVIDERS: PCP Physician Assistant; Visit Provider Radiology Radiation Oncology
DX: Z51.0 Encounter for antineoplastic radiation therapy (principal); C90.02 Multiple myeloma in relapse; D47.2 Monoclonal gammopathy; E11.22 Type 2 diabetes mellitus with diabetic chronic kidney disease; N18.6 End stage renal disease; Z99.2 Dependence on renal dialysis; I12.0 Hypertensive chronic kidney disease with stage 5 chronic kidney disease or end stage renal disease; D63.1 Anemia in chronic kidney disease; E11.42 Type 2 diabetes mellitus with diabetic polyneuropathy; N40.0 Benign prostatic hyperplasia without lower urinary tract symptoms; E03.9 Hypothyroidism, unspecified; Z79.899 Other long term (current) drug therapy
CPT/HCPCS: 77263; 77290; 77295; 77300; 77334; 99215

== ENCOUNTER 2021-02-07 05:48 | Outpatient (RCR) | payer MEDICARE, OTHER, SELFPAY ==
--- NOTE | 2021-02-01 14:30 | MR_ITS ---
WS: [id number] INDICATION: Multiple myeloma. Back pain. TECHNIQUE: MR of the pelvis without and with gadolinium enhancement. Coronal T1-T2, coronal STIR imag ing. Axial T1 and T2 imaging. Sagittal T1 and T2 imaging. Post gadolinium imaging was obtained. FINDINGS: Diffuse heterogeneous bone marrow signal throughout the visualized bony structures compatib le with multiple myeloma. Multiple enhancing myelomatous lesions throughout the bony structures. Larg est lesions in the left ilium measuring up to 2 cm. Additional notable lesion in the left anterior ac etabulum measuring 2.2 cm. Additional prominent lesion right proximal femur measuring 1.5 cm. Mild co mpression superior endplate L5 unchanged since the recent lumbar spine MRI. Distal lumbar canal is pa tent. No acute insufficiency fractures. Right inferior pubic ramus myelomatous lesion with pathologic fracture and callus formation seen on t he prior CT pelvis October 23, 2020. Mild disc bulging L5-S1 with slight effacement of ventral theca l sac. MR/MR pelvis wo/w con [id number] IMPRESSION: 1. Innumerable enhancing myelomatous lesions throughout the visualized bony st ructures involving the lower thoracic spine, pelvis, sacrum, and proximal femur s. 2. Mild compression superior end plate L5 unchanged since the recent MRI. 3. No sacral insufficiency fractures. 4. Myelomatous lesion right inferior pubic ramus with pathologic fracture and callus formation seen on the prior CT pelvis October 2020. 5. Additional notable lesions involving the left ilium and left anterior aceta bulum measuring approximately 2 cm.
[2021-02-01] MEDS: gadobenate dimeglumine 20 mL vial IV (14:59)
--- NOTE | 2021-02-05 11:08 | ONCRAD TMN_ITS ---
Radiation Oncology Treatment Management Note Patient Name: Larry Stephens Date of : 1945 Date of Service: 02/05/2021 Attending Physician: Olvin Goncalves M.D. Larry Stephens is a 75 year-old white male diagnosed multiple myeloma and lumbar spine metastases. The patient has received 15 Gy of a prescribed 20 Winters to T12 through S1 with a 3-dimensional conformal radiotherapy plan utilizing AP port with wedge pair treatment omreno. Upon review of systems, he denied any neurological complaints. He has better pain control with Dilaudid. On physical examination, the patient weighed 155 lbs. His temperature was 98 ???F with a blood pressure of 114/61 mmHg. His pulse was 68 bpm and his respiratory rate was 18. Continue palliative radiotherapy as prescribed. Signed by: Dr. Olvin Goncalves 02/05/2021 11:07:36 AM
== END 2021-02-07 23:59 | disposition home or self-care (01) ==
LOC: ONCMED 05:48
PROVIDERS: Absent Provider Radiology Radiation Oncology; PCP Physician Assistant; Visit Provider Radiology Radiation Oncology
DX: Z51.0 Encounter for antineoplastic radiation therapy (principal); C90.02 Multiple myeloma in relapse; D47.2 Monoclonal gammopathy; N18.6 End stage renal disease; Z99.2 Dependence on renal dialysis; Z79.899 Other long term (current) drug therapy
CPT/HCPCS: 72197; 77336; 77387; 77412; 96523; A9577

== ENCOUNTER 2021-02-08 09:06 | Outpatient (CLI) | payer MEDICARE, OTHER, SELFPAY ==
[2021-02-08 09:37] LABS: Eosinophils % 2.4 %; Hematocrit 29.9 % (42.0-52.0); Hemoglobin 9.9 g/dL (11.7-16.6); Lymphocytes # 0.1 10^3/uL (0.8-4.8); Mean Corpuscular HGB Conc 33.1 g/dL (30.0-36.0); Mean Corpuscular Hemoglobin 37.9 pg (28.0-34.0); Mean Corpuscular Volume 114.6 fL (80-94); Monocytes # 0.2 10^3/uL (0.2-0.9); Monocytes % 40.5 %; Neutrophils % 26.1 %; Nucleated Red Blood Cells % 0 %; Red Blood Count 2.61 10^6/uL (4.1-5.3)
[2021-02-08 10:04] LABS: Alanine Aminotransferase 29 U/L (0-41); Albumin Level 3.7 g/dL (3.5-5.2); Alkaline Phosphatase 129 IU/L (40-130); Anion Gap 14.8 (5-19); Aspartate Amino Transferase 30 U/L (0-40); Blood Urea Nitrogen 44 mg/dL (8-23); Calcium 8.3 mg/dL (8.5-10.5); Carbon Dioxide 33 mmol/L (22-29); Chloride 99 mmol/L (98-107); Globulin 1.9 g/dL (1.3-4.6); Glucose 108 mg/dL (65-115); Osmolality Calculated 308 mOsm/kg (285-295); Potassium 3.8 mmol/L (3.5-5.1); Sodium 143 mmol/L (136-145); Total Bilirubin 0.6 mg/dL (0.15-1.2); Total Protein 5.6 g/dL (6.6-8.7)
[2021-02-08 10:31] LABS: Slide Review Slide Review Perform
[2021-02-08 10:40] LABS: White Blood Count 0.4 10^3/uL (4.0-10.0)
[2021-02-08 10:41] LABS: Neutrophils # 0.11 10^3/uL (1.8-7.7); Platelet Count 11 10^3/cmm (130-400)
== END 2021-02-08 09:07 | disposition home or self-care (01) ==
PROVIDERS: PCP Physician Assistant; Visit Provider Family Medicine
DX: D64.9 Anemia, unspecified (principal)
CPT/HCPCS: 80053; 85025

== ENCOUNTER 2021-02-13 06:05 | Outpatient (CLI) | payer MEDICARE, OTHER, SELFPAY ==
[2021-02-13 06:28] LABS: Basophils % 0.6 %; Eosinophils # 0.1 10^3/uL (0.0-0.8); Eosinophils % 3.2 %; Hematocrit 27.6 % (42.0-52.0); Hemoglobin 9.3 g/dL (11.7-16.6); Lymphocytes # 0.2 10^3/uL (0.8-4.8); Lymphocytes % 15.2 %; Mean Corpuscular HGB Conc 33.7 g/dL (30.0-36.0); Mean Corpuscular Hemoglobin 38.1 pg (28.0-34.0); Mean Corpuscular Volume 113.1 fL (80-94); Mean Platelet Volume 9.4 fL (7.4-10.4); Monocytes # 0.3 10^3/uL (0.2-0.9); Monocytes % 21.5 %; Neutrophils % 58.9 %; Nucleated Red Blood Cells % 0 %; Red Blood Count 2.44 10^6/uL (4.1-5.3); Red Cell Distribution Width 16.2 % (12.1-15.1); White Blood Count 1.6 10^3/uL (4.0-10.0)
[2021-02-13 07:01] LABS: Alanine Aminotransferase 26 U/L (0-41); Albumin Level 3.6 g/dL (3.5-5.2); Alkaline Phosphatase 127 IU/L (40-130); Anion Gap 10.9 (5-19); Aspartate Amino Transferase 20 U/L (0-40); Blood Urea Nitrogen 48 mg/dL (8-23); Calcium 7.7 mg/dL (8.5-10.5); Carbon Dioxide 34 mmol/L (22-29); Chloride 102 mmol/L (98-107); Globulin 1.4 g/dL (1.3-4.6); Glucose 86 mg/dL (65-115); Osmolality Calculated 308 mOsm/kg (285-295); Potassium 3.9 mmol/L (3.5-5.1); Sodium 143 mmol/L (136-145); Total Bilirubin 0.4 mg/dL (0.15-1.2)
[2021-02-13 08:32] LABS: Neutrophils # 0.93 10^3/uL (1.8-7.7); Platelet Count 17 10^3/cmm (130-400)
[2021-02-13 08:33] LABS: Slide Review Slide Review Perform
== END 2021-02-13 06:06 | disposition home or self-care (01) ==
PROVIDERS: PCP Physician Assistant; Visit Provider Family Medicine
DX: D64.9 Anemia, unspecified (principal)
CPT/HCPCS: 80053; 85025

== ENCOUNTER 2021-02-13 08:45 | Outpatient (RCR) | payer MEDICARE, OTHER, SELFPAY ==
[2021-02-09 11:45] VITALS: BP 129/77; PULSE 80; RESP 18; TEMP 37.1; O2SAT 99
[2021-02-09] MEDS: diphenhydrAMINE 25 mg Capsule PO (11:45)
[2021-02-09] MEDS: acetaminophen 325 mg Tablet PO (11:45)
[2021-02-09 12:00] VITALS: BP 118/66; PULSE 80; RESP 18; TEMP 37.1; O2SAT 100
--- NOTE | 2021-02-13 08:42 | MR_ITS ---
WS: [id number] MRI THORACIC SPINE WITH CONTRAST TECHNIQUE: Sagittal T1, T2 and STIR imaging. Axial T2 imaging. Post gadolinium imaging was obtained. CLINICAL INFORMATION: MYELOMA, BACK PAIN COMPARISON: None. FINDINGS: Diffuse heterogeneous enhancing myelomatous lesions throughout the thoracic spine consistent with mul tiple myeloma. Chronic appearing anterior wedging in the mid thoracic spine worse at T8 and T9. Cord signal is normal. Small disc protrusions more prominent at T6-T7, T7-8, and T10-11 eccentric to the r ight. Slight contact of the thoracic cord at T6-7 with mild central canal stenosis. Mild right T10-11 and T11-12 bony foraminal narrowing. Small enhancing myelomatous lesions in the proximal ribs bilate rally. Normal caliber thoracic aorta. Bilateral renal cortical atrophy. Moderate facet arthropathy in the lo wer thoracic spine. MR/MR thoracic spine wo/w [id number] IMPRESSION: 1. Diffuse heterogeneous enhancing myelomatous lesions throughout the thoracic spine consistent with multiple myeloma 2. No high-grade central canal stenosis. Cord signal is normal. 3. Mild chronic anterior wedging in the mid thoracic spine worse at T8-T9. 4. Small disc protrusions as described above worse at T6-T7, T7-8, and T10-11 eccentric to the right. Slight contact of the thoracic cord at T6-7 with mild c entral canal stenosis. 5. Mild right T10-11 and right T11-12 foraminal narrowing.
[2021-02-13] MEDS: diphenhydrAMINE 25 mg Capsule PO (13:15)
[2021-02-13] MEDS: acetaminophen 325 mg Tablet 650 MG PO (13:15)
[2021-02-13 13:53] VITALS: BP 112/53; PULSE 64; RESP 17; TEMP 37.2; O2SAT 100
[2021-02-13 14:10] VITALS: BP 116/54; PULSE 65; RESP 16; TEMP 37.2; O2SAT 98
[2021-02-13 14:35] VITALS: BP 114/53; PULSE 65; RESP 17; TEMP 37.1; O2SAT 100
== END 2021-02-13 23:59 | disposition home or self-care (01) ==
LOC: ONCMED 08:45
PROVIDERS: Absent Provider Radiology Radiation Oncology; PCP Physician Assistant; Visit Provider Internal Medicine Medical Oncology
DX: C90.02 Multiple myeloma in relapse (principal); D47.2 Monoclonal gammopathy; N18.6 End stage renal disease; Z99.2 Dependence on renal dialysis; Z79.899 Other long term (current) drug therapy
CPT/HCPCS: 36430; 72157; 86900; 96372; A9579; P9037; P9040; Q5101

== ENCOUNTER 2021-02-21 06:42 | Outpatient (CLI) | payer MEDICARE, OTHER, SELFPAY ==
[2021-02-21 12:46] LABS: Eosinophils # 0.1 10^3/uL (0.0-0.8); Eosinophils % 2.5 %; Hematocrit 28.1 % (42.0-52.0); Hemoglobin 9.3 g/dL (11.7-16.6); Lymphocytes # 0.3 10^3/uL (0.8-4.8); Lymphocytes % 14.6 %; Mean Corpuscular HGB Conc 33.1 g/dL (30.0-36.0); Mean Corpuscular Hemoglobin 37.7 pg (28.0-34.0); Mean Corpuscular Volume 113.8 fL (80-94); Monocytes # 0.3 10^3/uL (0.2-0.9); Monocytes % 12.6 %; Neutrophils # 1.35 10^3/uL (1.8-7.7); Neutrophils % 68.3 %; Nucleated Red Blood Cells % 0 %; Platelet Count 44 10^3/cmm (130-400); Red Blood Count 2.47 10^6/uL (4.1-5.3); Red Cell Distribution Width 17.3 % (12.1-15.1)
[2021-02-21 13:14] LABS: Alanine Aminotransferase 19 U/L (0-41); Albumin Level 3.8 g/dL (3.5-5.2); Alkaline Phosphatase 119 IU/L (40-130); Anion Gap 12.5 (5-19); Aspartate Amino Transferase 20 U/L (0-40); Blood Urea Nitrogen 16 mg/dL (8-23); Calcium 7.7 mg/dL (8.5-10.5); Carbon Dioxide 32 mmol/L (22-29); Chloride 99 mmol/L (98-107); Globulin 1.5 g/dL (1.3-4.6); Glucose 103 mg/dL (65-115); Immunoglobulin IGA 289 mg/dL (70-400); Immunoglobulin IGM 38 mg/dL (40-230); Osmolality Calculated 291 mOsm/kg (285-295); Potassium 3.5 mmol/L (3.5-5.1); Sodium 140 mmol/L (136-145); Total Bilirubin 0.6 mg/dL (0.15-1.2); Total Protein 5.3 g/dL (6.6-8.7)
[2021-02-21 13:26] LABS: Immunoglobulin IGG < 300 mg/dL (700-1600)
[2021-02-22 10:08] LABS: PROTEIN, TOTAL 5.1 g/dL (6.1-8.1)
[2021-02-22 12:22] LABS: KAPPA LIGHT CHAIN, FREE, SERUM 32.4 mg/L (3.3-19.4); KAPPA/LAMBDA LIGHT CHAINS FREE 2.17 (0.26-1.65); LAMBDA LIGHT CHAIN, FREE, SERU 14.9 mg/L (5.7-26.3)
[2021-02-22 15:13] LABS: ABNORMAL PROTEIN BAND 1 0.1 g/dL (NONE DETECTED); ABNORMAL PROTEIN BAND 2 0.2 g/dL (NONE DETECTED); ALBUMIN 3.4 g/dL (3.8-4.8); ALPHA 1 GLOBULIN 0.3 g/dL (0.2-0.3); ALPHA 2 GLOBULIN 0.5 g/dL (0.5-0.9); BETA 1 GLOBULIN 0.2 g/dL (0.4-0.6); BETA 2 GLOBULIN 0.2 g/dL (0.2-0.5); GAMMA GLOBULIN 0.5 g/dL (0.8-1.7)
--- NOTE | 2021-03-06 21:44 | ONC FU_ITS ---
[facility] Patient Note Patient: Larry Stephens Unit #: [id number]: 1945 Dictated By: Ann SheetsDate of Visit: Feb 21, 2021 Onc MED Follow-Up/Prog Note Chief Complaint: Multiple myeloma. History of Present Illness: Mr Hayden is a 75 year-old man with relapsed IgA kappa myeloma. He has associated end-stage renal disease and anemia. He had pre-existing hypertension, hyperlipidemia, and type II diabetes. He had developed stage III chronic kidney disease following a colonoscopy prep. He had been seeing Dr. Miguelangel Cha for his nephrology follow-up care, and he was then found to have evidence of IgA kappa monoclonal gammopathy in October 2010. He was initially seen here by Dr. Plasencia in September 2011. At that point his protein electrophoresis showed IgA kappa monoclonal protein quantitating at 1.3 g/dL with 0.2 g/dL of free kappa monoclonal protein. UPEP was reportedly unrevealing. Bone marrow aspiration/biopsy showed 12% plasma cells. 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 There was no evidence of lytic bone involvement. His baseline creatinine was 1.8 mg/dL. He was treated initially with 3 cycles of Velcade/dexamethasone between October and December 2011. He required a dose reduction in the Velcade due to neuropathy. His repeat bone marrow aspiration/biopsy at [facility] on 01/01/2012 showed increase in the plasma cells to 17%. He then continued treatment at [facility] with autologous peripheral stem cell transplant in January 2012, I assume with high-dose melphalan, though it is not stated in the available records. The procedure was complicated by sepsis and acute renal failure requiring hemodialysis. He had subsequent relapse of the myeloma. His further treatment included 10 cycles of carfilzomib and dexamethasone beginning in May 2015. It was changed to carfilzomib, Revlimid, and dexamethasone beginning in January 2016 due to disease progression. Following further disease progression, his treatment was transitioned to carfilzomib, pomalidomide, and dexamethasone. As of October 2016, due to progressive kidney disease concerning for progressive myeloma, his treatment was changed to daratumumab, Revlimid, and dexamethasone. The Revlimid and dexamethasone were subsequently omitted due to toxicities, and he then continued daratumumab as a single agent. It was administered on a monthly schedule. During this time his kidney function had progressed to end-stage renal disease, and he began on home peritoneal dialysis. He had been receiving treatment at [facility]. He was seen here in October 2017 because he desired to continue his further treatment locally. Following his initial visit he continued monthly daratumumab infusions with no apparent adverse effects and no obvious progression of the myeloma. His hemoglobin/hematocrit levels remained stable above transfusion thresholds. On 06/25/2018 he was seen in the emergency room with increasing weakness. On evaluation, he was found to have a low B12 level at 168 pg/mL, and his TSH level was found to be elevated at 13.500 mIU/mL. He started B12 injections, and he also started thyroid replacement. As of 07/22/2018 there was further decline in the hemoglobin to 8.6 g, and at that point he did start treatment with Procrit. He had a very good response with his hemoglobin increasing to 12.2 g after 2 weekly injections. As of October 2018 he had opted [facility], and he then began hemodialysis. At that point his erythropoietin stimulating agent was changed to Mircera. He then became progressively more anemic. As of 12/02/2018 his hemoglobin had stabilized at 7.9 g. He then restarted Procrit on 12/17/2018. During this time, he also had continued his monthly daratumumab infusions. His anemia did improve after restarting the Procrit. During follow-up his clinical status had otherwise remained stable. His protein electrophoresis had continued to show a very small M protein spike. There had been no significant change in his serum free light chains. 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 He continued on his monthly daratumumab infusions. As of 12/09/2019 he received cycle 38 of daratumumab. He had been tolerating the treatment well and his clinical status had been stable. However, he had been showing a very gradual increase in his M protein, in the kappa free light chain, and in the kappa/lambda ratio. Dr Pinto had discussed options for further treatment, and we ultimately decided to just try adding back carfilzomib. He began cycle 1 of daratumumab in combination with carfilzomib and dexamethasone on 03/01/2020. He tolerated the day 1 and day 2 carfilzomib infusions without acute toxicity. He was then able to continue with his day 7/8 and day 15/16 carfilzomib infusions on schedule, but he was not able to tolerate any dose escalation due to moderately severe thrombocytopenia. He then continued monthly cycles of treatment with the carfilzomib dosage unchanged. He began cycle 6 on 08/02/2020. His repeat protein electrophoresis studies on 08/22/2020 showed further increase in his M protein to 2.0 g/dL compared to 1.2 g/dL on 02/22/2020. During that same time period his serum free light chain assay showed an increase in the kappa/lambda ratio from 10.52 to 60.22. With continued evidence of disease progression, the daratumumab/carfilzomib regimen was stopped. Dr Pinto had seen him for a follow-up visit on 09/13/2020, at that time reviewed other treatment options. As he was not having any obvious symptoms associated with the myeloma, he preferred to just continue observation/expectant management. His medical illnesses, in addition to myeloma and renal failure, include hypertension, hyperlipidemia, type II diabetes with peripheral neuropathy, and benign prostatic hypertrophy. He is a nonsmoker. INTERIM HISTORY: As of his follow-up visit in October 2020 his repeat protein electrophoresis showed significant increase in his M protein to 3.0 g/dL. At that point he was still stable clinically and he preferred not to attempt any of the available salvage therapies due to concerns over their potential side effects. He had subsequently developed increased pain in his lower back and pelvic area. A CT of the lumbar spine on 10/03/2020 had shown evidence of acute compression fracture involving the superior endplate of the L2 vertebral body but with minimal loss of vertebral body height. There was annual bulging at L4-5 with moderate central canal stenosis and slight anterolisthesis. Further evaluation with CT of the pelvis on 10/23/2020 showed diffuse demineralization with vague lytic lesions throughout the pelvis and sacrum, suspicious for myeloma or possibly metastatic disease. There is no apparent fracture in the right hip but there was suspected pathologic fracture involving the right inferior pubic ramus with a lytic lesion measuring 2.1 x 1.8 cm. He had radiation oncology consultation with Dr. Delgado on 11/01/2020, and he was given palliative radiation to the right hip area. His clinical course was complicated by significant INTERNIST toxicity associated with opiate pain medication. He was able to complete his radiation on 11/07/2020 to a total dose of 800 cGy administered in a single fraction. He had a follow-up visit with Dr. Goncalves on 11/27/2020. At that time his right hip pain had improved, but he was reporting severe pain in the low back area. In the absence of any known lytic disease in that area, he was referred to pain management. He subsequently was given a lumbar medial branch block and cervical/thoracic medial branch block on 12/12/2020. In the meantime, we were able to get him approved for a trial of salvage therapy with melphalan flufenamide. He began cycle 1 on 11/29/2020. It was administered at reduced dosage because of his low baseline platelet count. He did receive his second dose on January 24, 2021 which time his platelet count was 91,000, hemoglobin 12.4 white count was 4.2 with an ANC of 2920. He did have 2 doses of Neupogen on February 08 and February 09, 2021. His white count on 02/08/2021 was 0.4 hemoglobin 9.9 platelet count was 11,000 and his ANC was 110. His Mr. Stephens is here today for consideration of cycle 3 melphalan flufenamide. He did receive his second dose on January 24, 2021 which time his platelet count was 91,000, hemoglobin 12.4 white count was 4.2 with an ANC of 2920. He did have 2 doses of Neupogen on February 08 and February 09, 2021. His white count on 02/08/2021 was 0.4 hemoglobin 9.9 platelet count was 11,000 and his ANC was 110. He did remain asymptomatic during this time. His blood counts from February 13, 2021 did show some recovery as his WBCs were 1.6, his hemoglobin was 9.3 hours for the count had dropped to 17,000 but his ANC improved to 930. He did receive platelets on February 13, 2021. He is here today for follow-up and consideration of cycle 3 melphalan flufenamide. He reports no new concerns. He continues to have some right posterior hip pain but states it is no worse and may be some better. He continues to ambulate with a wheeled walker and utilizes a wheelchair at times. He denies any fever or chills. He said no mouth sores, sore throat or difficulty swallowing. He remains at the assisted living[facility] facility. He states he is eating good and is somewhat active there. His chronic neuropathy in his feet but states is no worse than normal. He has had some bruising related to the thrombocytopenia but that too is chronic and no worse than what it has been. He denies any problems with his dialysis fistula. He has had complications with bleed in the past when his platelet count has been low. He denies any orthopnea, hemoptysis, chest pain or palpitations. His ECOG is 3. Past Medical History: Benign prostatic hypertrophy End stage renal disease on home peritoneal dialysis Hyperlipidemia Hypertension Multiple myeloma Type II diabetes with peripheral neuropathy Past Surgical History: Colonoscopy Placement of peritoneal diaysis catheter Placement of portacath venous access device Covid vaccine #2 in 2020 Covid vaccine #1 in 2020 Fistula in left arm in 2019 Prevnar 13 in 2018 Cataract excision in 2016 Right inguinal hernia repair in 2007 Cholecystectomy in 1983 Allergies: Bactrim, Codeine Sulfate, Sulfa Antibiotics, TraMADol HCl, and Verapamil HCl. Medications: Acetaminophen 2 Tablet (of 325 mg) Oral four times a day PRN Acyclovir 1 Tablet (of 400 mg) Oral daily Albuterol Sulfate 1 Vial(s) (of (2.5 mg/3ml) 0.083%) Nebulization solution Inhalation t.i.d. PRN Albuterol Sulfate 1 Inhalation (of 108 (90 base) mcg/act) Aerosol Powder, Breath Activated Inhalation q 4 hours Allopurinol 1 Tablet (of 100 mg) Oral daily ALPRAZolam 1 Tablet (of 0.25 mg) Oral at bedtime amLODIPine Besylate 1 Tablet (of 2.5 mg) Oral daily Bisacodyl EC 2 Tablet (of 5 mg) Tablet, enteric coated Oral daily PRN Calcium Acetate 1 Capsule (of 667 mg) Oral t.i.d. Cipro 1 Tablet (of 500 mg) Oral b.i.d. Fluconazole 1 Tablet (of 100 mg) Oral daily Furosemide 1 Tablet (of 80 mg) Oral daily Gentamicin Sulfate 1 (0.1 %) Cream Topical at bedtime HYDROmorphone HCl 1 (2 mg) Tablet Oral four times a day PRN Levothyroxine Sodium 1 Tablet (of 50 mcg) Oral daily Loperamide HCl 1 - 2 Tablet (of 2 mg) Oral PRN Lovastatin 1 (40 mg) Tablet Oral at bedtime Metoprolol Succinate ER (25 mg) Tablet SR 24 HR Oral daily Mucinex 1 Tablet (of 600 mg) Tablet SR 12 HR Oral b.i.d. PRN Prochlorperazine Maleate 1 Tablet (of 10 mg) Oral q 6 hours PRN Renvela 3 (800 mg) Tablet Oral daily Requip 1 Tablet (of 0.5 mg) Oral b.i.d. Tamsulosin HCl 1 Tablet (of 0.4 mg) Capsule Oral b.i.d. Vital-D Rx 1 Tablet (of 1 mg) Oral daily Family History: Mr. Stephens's mother at age 82: Breast Cancer at age 70. Mr. Stephens's father at age 40. Mr. Stephens's maternal grandmother at age 80: cancer history consists of Breast cancer at age 80 (cause of ). Father at age 40, cause unknown to the patient. Mother of breast cancer at age 82. His maternal grandmother also had breast cancer. Social History: Mr. Stephens is and he is retired. Mr. Stephens has never smoked. He has no history of drinking. He is a nonsmoker. He does not drink alcohol. Review Of Symptoms: <See Above> Vital Signs: Performed on Feb 21, 2021 11:37 Height - 69.00 in Weight - 150 lbs (LOW) BSA - 1.83 sq.m BMI - 22.15 Temperature - 98.3 F (LOW) Pulse - 70 /min Respiration - 20 /min BP - 90/58 mm(hg) O2 Sat - 98 % Pain - 10 Fatigue - 9,3 - Capable of only limited self-care, confined to bed or chair more than 50% of waking hours. (ECOG) Physical Examination: Constitutional Alert, oriented, no acute distress. Skin pink, warm and dry. Head Normocephalic; atraumatic. Eyes Conjunctivae and sclerae are clear and without icterus. ENMT No oral exudates, ulcers, masses, thrush or mucositis. Oropharynx clear. Tongue normal. Neck Supple without masses or thyromegaly. No jugular venous distension. Hematologic/Lymphatic No petechiae or purpura. Some bruising on hands-chronic Respiratory Lungs are clear to auscultation without rhonchi or wheezing. Cardiovascular Regular rate and rhythm of heart without murmurs,clicks, gallops or rubs. Abdomen Non-tender, non-distended, no masses, Back/Spine Non-tender to palpation. Extremities No visible deformities, no cyanosis, clubbing or edema. Left arm fistula is unremarkable-no active bleeding and no significant bruising. Musculoskeletal No tenderness or swelling, normal range of motion without obvious weakness. Integumentary No rashes or lesions. Extensive ecchymosis on both arms which is not new. Neurologic No sensory or motor deficits, normal cerebellar function. Assisted gait with wheeled walker Psychiatric Alert and oriented times three. Coherent speech. Verbalizes understanding of our discussions today. Laboratory:Test performed on Feb 27, 2021 10:11 Sodium 140 mmol/L Potassium 3.4 mmol/L Chloride 97 mmol/L CO2 28 mmol/L Anion Gap 18.4 BUN 39 mg/dL Creatinine 5.2 mg/dL Cr Clearance (Est) 11.9900 mL/min Glucose 103 mg/dL Osmolality - Calculated 300 mOsm/kg Calcium 8.3 mg/dL Protein, Total 5.2 g/dL Albumin 3.7 g/dL Globulin 1.5 g/dL Bilirubin, Total 0.7 mg/dL ALT (SGPT) 18 U/L AST (SGOT) 19 U/L Alkaline Phosphatase 105 IU/L WBC 2.5 10 3/uL RBC 2.69 10 6/uL HGB 10.5 g/dL HCT 31.3 % MCV 116.4 fL MCH 39.0 pg MCHC 33.5 g/dL RDW 19.2 % Platelet Count 59 10 3/cmm MPV 12.1 fL Neutrophils 1.73 10 3/uL Lymphocytes 0.3 10 3/uL Monocytes 0.3 10 3/uL Eosinophils 0.0 10 3/uL Basophils 0.0 10 3/uL Neutrophil % 70.4 % Lymphocyte % 13.4 % Monocyte % 13.8 % Eosinophil % 1.6 % Basophils % 0.4 % NRBC % 0 % Test performed on Feb 21, 2021 12:25 Anti-D Positive / 4+ Blood Type OP Antibody Screen (Gel) NEGATIVE IgA 289 mg/dL IgG < 300 mg/dL IgM 38 mg/dL [place] Free Light Chains 32.4 mg/L Lambda Free Light Chains 14.9 mg/L [place]/Lambda Free Ratio 2.17 Impression: 1. IgA kappa myeloma, initially diagnosed in September 2011. 2. During follow-up he had progression to end-stage renal disease. He initially had started daily home peritoneal dialysis, but with subsequent transition to hemodialysis. 3. Anemia associated with end-stage renal disease. 4. Hypertension. 5. Hyperlipidemia. 6. Type II diabetes with peripheral neuropathy. 7. Benign prostatic hypertrophy. 8. Hypothyroidism. Plan/Problems Addressed at this Visit: 1. IgA kappa myeloma, initially diagnosed in September 2011. His myeloma therapy included: 1. Velcade/dexamethasone for 3 cycles, completed December 2011. 2. High-dose melphalan/stem cell transplant in January 2012, complicated by sepsis and acute renal failure requiring hemodialysis. 3. Carfilzomib/dexamethasone for 10 cycles, completed May 2015. 4. Carfilzomib/Revlimid/dexamethasone beginning in January 2016. 5. Carfilzomib/pomalidomide/dexamethasone. 6. Daratumumab/Revlimid/dexamethasone beginning in October 2016. 7. Daratumumab mono therapy until January 2020. 8. Carfilzomib/daratumumab/dexamethasone from 03/01/2020 through 08/31/2020. 9. Radiation therapy to the right hip to total dose of 800 cGy on 11/07/2020. 10. Melphalan flufenamide???2 cycles first given on 11/29/2020 and second on 01/24/2021. He had been showing gradual disease progression since September 2019, but has a October 2020 there was a more significant increase in his M protein level, to 3.0 g/dL. He was initially not overtly symptomatic, but he subsequently developed symptomatic bone involvement in the pelvis. He had associated pathologic fracture. He was given palliative radiation to the right hip area, completed on 11/07/2020 to a total dose of 800 cGy administered in a single fraction. In the meantime, we were able to get approval for a trial of salvage therapy with melphalan flufenamide. He began cycle 1 on 11/29/2020. It was administered at a reduced dosage due to baseline thrombocytopenia. During followup his platelet count nadired at 16,000. He had no bleeding. His dory granulocyte count was 600. He has uneventful recovery, but he remains moderately neutropenic. His 2nd cycle of treatment was delayed pending further recovery. He was able to obtain the second dose on January 24, 2021. He has since then had significant thrombocytopenia and neutropenia. He is here today for consideration of cycle 3 melphalan flufenamide???he was delayed last week due to a platelet count of 17,000. Today's labs were reviewed in detail and discussed with Mr. Stephens and a copy was given to him. WBC 2.0, hemoglobin 9.3, platelets 44,000, ANC is 1350. Potassium is 3.5 sodium is 140. Calcium is 7.7 and LFTs are normal. His kappa free light chain from today is 32.4 (compared to 2 and 37.9 on November 27, 2020), lambda free light chain 14.9 (8.7 on 11/27/2020) with a kappa/lambda free ratio of 2.17-compared to 27.34 on 11/27/2020. His IgA on 11/27/2020 was reported at 2990. It is 289 today.. His SPEP reports abnormal protein is 0.1 and abnormal protein is 0.2 with two poorly defined bands migrating in the gamma region. It is noted that his SPEP on 11/27/2020 reported abnormal protein at 2.7. Mr. Stephens is having slow recovery from his second cycle of melphalan flufenamide. He denies any new concerns today. We will plan to hold his treatment today and proceed with supportive care as indicated. We will plan to see him back in 2 weeks to give him additional time to recover. He will see Dr. Ng at that time for further discussion about continuing the melphalan flufenamide, placing him on observation or referral to hospice. 2. He has had progressively worsening anemia. He will be transfused transfused PRBC as needed. 3. Continues to experience pain in his lower back. Management is problematic due to very poor tolerance for opiate pain medication. His previous CT of the lumbar spine did show no obvious lytic lesions, but there were vertebral compression fractures, which potentially could indicate myelomatous involvement. As such, he will be scheduled for MRI of the lumbar spine and if it does appear to be involved with myeloma he may benefit with additional palliative radiation. He is currently managed with Hydromorphone 2 mg 1-2 every 4-6 as needed pain. Her last prescription was on February 08, 2021. Her prescriptions was written for 120 tablets at that time. 4. Follow-up plan A. We will plan to see him back in 2 weeks with CBC CMP and type and screen for possible transfusion services. B. He will continue to have weekly interim CBC with type and screen C. He will be due for consideration of cycle 3 melphalan flufenamide on his visit in 2 weeks. His myeloma labs indicate that there seems to be some improvement after 2 cycles. However he has had such severe thrombocytopenia and neutropenia. D. Mr. Stephens was instructed to contact us in interim should questions or problems arise. Total time spent on Mr. Stephens care today and review of his records prior to his visit, review of his current plan of care, labs including myeloma labs, discussion of plan of care, side effect medication management with Mr. Stephens and answering questions as well as post visit documentation was 55 minutes. Signed By: Ann Sheets-, AOCNP Dustin Pinto MD <<Signature on File>>
== END 2021-02-21 06:43 | disposition home or self-care (01) ==
LOC: ONCMED 06:42
PROVIDERS: Nurse Practitioner; Absent Provider Radiology Radiation Oncology; PCP Physician Assistant; Visit Provider Internal Medicine Medical Oncology
DX: C90.00 Multiple myeloma not having achieved remission (principal); I12.0 Hypertensive chronic kidney disease with stage 5 chronic kidney disease or end stage renal disease; N18.6 End stage renal disease; Z99.2 Dependence on renal dialysis; D63.1 Anemia in chronic kidney disease; E11.42 Type 2 diabetes mellitus with diabetic polyneuropathy; E03.9 Hypothyroidism, unspecified; E78.5 Hyperlipidemia, unspecified; N40.0 Benign prostatic hyperplasia without lower urinary tract symptoms; Z92.3 Personal history of irradiation
CPT/HCPCS: 36591; 80053; 82784; 83883; 84155; 84165; 85025; 86850; 86900; 99214

== ENCOUNTER 2021-02-27 06:38 | Outpatient (CLI) | payer MEDICARE, OTHER, SELFPAY ==
[2021-02-27 10:37] LABS: Basophils % 0.4 %; Eosinophils % 1.6 %; Hematocrit 31.3 % (42.0-52.0); Hemoglobin 10.5 g/dL (11.7-16.6); Lymphocytes # 0.3 10^3/uL (0.8-4.8); Lymphocytes % 13.4 %; Mean Corpuscular HGB Conc 33.5 g/dL (30.0-36.0); Mean Corpuscular Volume 116.4 fL (80-94); Mean Platelet Volume 12.1 fL (7.4-10.4); Monocytes # 0.3 10^3/uL (0.2-0.9); Monocytes % 13.8 %; Neutrophils # 1.73 10^3/uL (1.8-7.7); Neutrophils % 70.4 %; Nucleated Red Blood Cells % 0 %; Platelet Count 59 10^3/cmm (130-400); Red Blood Count 2.69 10^6/uL (4.1-5.3); Red Cell Distribution Width 19.2 % (12.1-15.1); White Blood Count 2.5 10^3/uL (4.0-10.0)
[2021-02-27 11:03] LABS: Alanine Aminotransferase 18 U/L (0-41); Albumin Level 3.7 g/dL (3.5-5.2); Alkaline Phosphatase 105 IU/L (40-130); Anion Gap 18.4 (5-19); Aspartate Amino Transferase 19 U/L (0-40); Blood Urea Nitrogen 39 mg/dL (8-23); Calcium 8.3 mg/dL (8.5-10.5); Carbon Dioxide 28 mmol/L (22-29); Chloride 97 mmol/L (98-107); Globulin 1.5 g/dL (1.3-4.6); Glucose 103 mg/dL (65-115); Osmolality Calculated 300 mOsm/kg (285-295); Potassium 3.4 mmol/L (3.5-5.1); Sodium 140 mmol/L (136-145); Total Bilirubin 0.7 mg/dL (0.15-1.2); Total Protein 5.2 g/dL (6.6-8.7)
== END 2021-02-27 06:39 | disposition home or self-care (01) ==
LOC: ONCMED 06:40
PROVIDERS: PCP Physician Assistant; Visit Provider Internal Medicine Medical Oncology
DX: C90.00 Multiple myeloma not having achieved remission (principal); Z79.899 Other long term (current) drug therapy
CPT/HCPCS: 36415; 36591; 80053; 85025

== ENCOUNTER 2021-03-06 05:42 | Outpatient (CLI) | payer MEDICARE, OTHER, SELFPAY ==
[2021-03-06 10:48] LABS: Eosinophils # 0.1 10^3/uL (0.0-0.8); Hematocrit 33.1 % (42.0-52.0); Hemoglobin 10.6 g/dL (11.7-16.6); Lymphocytes # 0.4 10^3/uL (0.8-4.8); Lymphocytes % 12.9 %; Mean Corpuscular Hemoglobin 37.5 pg (28.0-34.0); Mean Platelet Volume 10.2 fL (7.4-10.4); Monocytes # 0.4 10^3/uL (0.2-0.9); Monocytes % 14.6 %; Neutrophils # 2.03 10^3/uL (1.8-7.7); Neutrophils % 69.2 %; Nucleated Red Blood Cells % 0 %; Platelet Count 70 10^3/cmm (130-400); Red Blood Count 2.83 10^6/uL (4.1-5.3); White Blood Count 2.9 10^3/uL (4.0-10.0)
[2021-03-06 11:06] LABS: Alanine Aminotransferase 15 U/L (0-41); Albumin Level 3.6 g/dL (3.5-5.2); Alkaline Phosphatase 98 IU/L (40-130); Anion Gap 13.9 (5-19); Aspartate Amino Transferase 17 U/L (0-40); Blood Urea Nitrogen 28 mg/dL (8-23); Calcium 8.6 mg/dL (8.5-10.5); Carbon Dioxide 32 mmol/L (22-29); Chloride 98 mmol/L (98-107); Globulin 1.6 g/dL (1.3-4.6); Glucose 117 mg/dL (65-115); Osmolality Calculated 297 mOsm/kg (285-295); Potassium 3.9 mmol/L (3.5-5.1); Sodium 140 mmol/L (136-145); Total Bilirubin 0.5 mg/dL (0.15-1.2); Total Protein 5.2 g/dL (6.6-8.7)
== END 2021-03-06 05:43 | disposition home or self-care (01) ==
LOC: ONCMED 05:50
PROVIDERS: PCP Physician Assistant; Visit Provider Internal Medicine Medical Oncology
DX: C90.00 Multiple myeloma not having achieved remission (principal); I12.0 Hypertensive chronic kidney disease with stage 5 chronic kidney disease or end stage renal disease; N18.6 End stage renal disease; D63.1 Anemia in chronic kidney disease; E11.42 Type 2 diabetes mellitus with diabetic polyneuropathy; E03.9 Hypothyroidism, unspecified; E78.5 Hyperlipidemia, unspecified; N40.0 Benign prostatic hyperplasia without lower urinary tract symptoms; Z79.899 Other long term (current) drug therapy
CPT/HCPCS: 36415; 36591; 80053; 85025; 86850; 86900

== ENCOUNTER 2021-03-13 06:25 | Outpatient (CLI) | payer MEDICARE, OTHER, SELFPAY ==
[2021-03-13 10:37] LABS: Basophils % 0.2 %; Eosinophils % 0.2 %; Hematocrit 37.2 % (42.0-52.0); Hemoglobin 12.2 g/dL (11.7-16.6); Lymphocytes # 0.4 10^3/uL (0.8-4.8); Lymphocytes % 9.7 %; Mean Corpuscular HGB Conc 32.8 g/dL (30.0-36.0); Mean Corpuscular Hemoglobin 37.7 pg (28.0-34.0); Mean Corpuscular Volume 114.8 fL (80-94); Mean Platelet Volume 9.8 fL (7.4-10.4); Monocytes # 0.5 10^3/uL (0.2-0.9); Monocytes % 11.5 %; Neutrophils # 3.38 10^3/uL (1.8-7.7); Neutrophils % 77.9 %; Nucleated Red Blood Cells % 0 %; Platelet Count 66 10^3/cmm (130-400); Red Blood Count 3.24 10^6/uL (4.1-5.3); Red Cell Distribution Width 18.4 % (12.1-15.1); White Blood Count 4.3 10^3/uL (4.0-10.0)
[2021-03-13 11:28] LABS: Alanine Aminotransferase 25 U/L (0-41); Albumin Level 3.8 g/dL (3.5-5.2); Alkaline Phosphatase 98 IU/L (40-130); Anion Gap 18.9 (5-19); Aspartate Amino Transferase 19 U/L (0-40); Blood Urea Nitrogen 51 mg/dL (8-23); Calcium 8.2 mg/dL (8.5-10.5); Carbon Dioxide 27 mmol/L (22-29); Chloride 96 mmol/L (98-107); Globulin 1.8 g/dL (1.3-4.6); Glucose 124 mg/dL (65-115); Osmolality Calculated 301 mOsm/kg (285-295); Potassium 3.9 mmol/L (3.5-5.1); Sodium 138 mmol/L (136-145); Total Bilirubin 0.5 mg/dL (0.15-1.2); Total Protein 5.6 g/dL (6.6-8.7)
== END 2021-03-13 06:26 | disposition home or self-care (01) ==
LOC: ONCMED 06:27
PROVIDERS: PCP Physician Assistant; Visit Provider Internal Medicine Medical Oncology
DX: C90.00 Multiple myeloma not having achieved remission (principal); N18.6 End stage renal disease; D63.1 Anemia in chronic kidney disease; I12.0 Hypertensive chronic kidney disease with stage 5 chronic kidney disease or end stage renal disease; Z79.899 Other long term (current) drug therapy
CPT/HCPCS: 36415; 36591; 80053; 85025; 86850; 86900

== ENCOUNTER 2021-03-19 06:30 | Outpatient (CLI) | payer MEDICARE, OTHER, SELFPAY ==
[2021-03-19 14:41] LABS: Basophils % 1.1 %; Eosinophils # 0.1 10^3/uL (0.0-0.8); Eosinophils % 2.8 %; Hematocrit 37.9 % (42.0-52.0); Hemoglobin 12.3 g/dL (11.7-16.6); Lymphocytes # 0.4 10^3/uL (0.8-4.8); Lymphocytes % 10.9 %; Mean Corpuscular HGB Conc 32.5 g/dL (30.0-36.0); Mean Corpuscular Hemoglobin 37.5 pg (28.0-34.0); Mean Corpuscular Volume 115.5 fL (80-94); Mean Platelet Volume 10.3 fL (7.4-10.4); Monocytes # 0.5 10^3/uL (0.2-0.9); Neutrophils # 2.53 10^3/uL (1.8-7.7); Neutrophils % 70.9 %; Nucleated Red Blood Cells % 0 %; Platelet Count 64 10^3/cmm (130-400); Red Blood Count 3.28 10^6/uL (4.1-5.3); Red Cell Distribution Width 17.6 % (12.1-15.1); White Blood Count 3.6 10^3/uL (4.0-10.0)
[2021-03-19 15:02] LABS: Alanine Aminotransferase 24 U/L (0-41); Albumin Level 3.8 g/dL (3.5-5.2); Alkaline Phosphatase 96 IU/L (40-130); Aspartate Amino Transferase 24 U/L (0-40); Blood Urea Nitrogen 22 mg/dL (8-23); Calcium 7.9 mg/dL (8.5-10.5); Carbon Dioxide 32 mmol/L (22-29); Chloride 98 mmol/L (98-107); Globulin 1.7 g/dL (1.3-4.6); Glucose 99 mg/dL (65-115); Osmolality Calculated 295 mOsm/kg (285-295); Sodium 141 mmol/L (136-145); Total Bilirubin 0.7 mg/dL (0.15-1.2); Total Protein 5.5 g/dL (6.6-8.7)
[2021-03-19 15:20] LABS: Anion Gap 14.8 (5-19)
[2021-03-19 15:21] LABS: Potassium 3.8 mmol/L (3.5-5.1)
== END 2021-03-19 06:31 | disposition home or self-care (01) ==
LOC: ONCMED 06:31
PROVIDERS: PCP Physician Assistant; Visit Provider Internal Medicine Medical Oncology
DX: C90.00 Multiple myeloma not having achieved remission (principal); I12.0 Hypertensive chronic kidney disease with stage 5 chronic kidney disease or end stage renal disease; N18.6 End stage renal disease; D63.1 Anemia in chronic kidney disease; Z79.899 Other long term (current) drug therapy
CPT/HCPCS: 36591; 80053; 85025

== ENCOUNTER 2021-03-21 06:17 | Outpatient (CLI) | payer MEDICARE, OTHER, SELFPAY ==
[2021-03-21] MEDS: acetaminophen 325 mg Tablet 650 MG PO (13:23)
[2021-03-21] MEDS: diphenhydrAMINE 50 mg/mL SDV 1mL 25 MG IVP (13:23)
[2021-03-21] MEDS: palonosetron 0.25 mg/5 mL SDV IVP (13:27)
[2021-03-21] MEDS: famotidine 20 mg/2 mL INJ IVP (13:28)
[2021-03-21] MEDS: sodium chloride 0.9% 250 ML 75 ML IV (13:30)
[2021-03-21 17:21] LABS: Immunoglobulin IGA 230 mg/dL (70-400); Immunoglobulin IGG 300 mg/dL (700-1600); Immunoglobulin IGM 36 mg/dL (40-230)
[2021-03-22 13:18] LABS: KAPPA LIGHT CHAIN, FREE, SERUM 28.7 mg/L (3.3-19.4); KAPPA/LAMBDA LIGHT CHAINS FREE 2.26 (0.26-1.65); LAMBDA LIGHT CHAIN, FREE, SERU 12.7 mg/L (5.7-26.3)
[2021-03-22 14:57] LABS: ABNORMAL PROTEIN BAND 1 0.2 g/dL (NONE DETECTED); ALBUMIN 2.8 g/dL (3.8-4.8); ALPHA 1 GLOBULIN 0.2 g/dL (0.2-0.3); ALPHA 2 GLOBULIN 0.4 g/dL (0.5-0.9); BETA 1 GLOBULIN 0.2 g/dL (0.4-0.6); BETA 2 GLOBULIN 0.1 g/dL (0.2-0.5); GAMMA GLOBULIN 0.3 g/dL (0.8-1.7)
--- NOTE | 2021-03-25 15:12 | ONC FU_ITS ---
Dr. Pinto Patient Follow-Up Note Patient: Larry Stephens Unit #: [id number]: 1945 Dicatated By: Dustin Pinto M.D.Date of Visit:Mar 21, 2021 Onc Med Follow-up/Prog Note Chief Complaint: Multiple myeloma. History of Present Illness: This is a 75 year-old man with relapsed IgA kappa myeloma. He has associated end-stage renal disease and anemia. He had pre-existing hypertension, hyperlipidemia, and type II diabetes. He had developed stage III chronic kidney disease following a colonoscopy prep. He had been seeing Dr. Miguelangel Cha for his nephrology follow-up care, and he was then found to have evidence of IgA kappa monoclonal gammopathy in October 2010. He was initially seen here by Dr. Plasencia in September 2011. At that point his protein electrophoresis showed IgA kappa monoclonal protein quantitating at 1.3 g/dL with 0.2 g/dL of free kappa monoclonal protein. UPEP was reportedly unrevealing. Bone marrow aspiration/biopsy showed 12% plasma cells. 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 There was no evidence of lytic bone involvement. His baseline creatinine was 1.8 mg/dL. He was treated initially with 3 cycles of Velcade/dexamethasone between October and December 2011. He required a dose reduction in the Velcade due to neuropathy. His repeat bone marrow aspiration/biopsy at [facility] on 01/01/2012 showed increase in the plasma cells to 17%. He then continued treatment at [facility] with autologous peripheral stem cell transplant in January 2012, I assume with high-dose melphalan, though it is not stated in the available records. The procedure was complicated by sepsis and acute renal failure requiring hemodialysis. He had subsequent relapse of the myeloma. His further treatment included 10 cycles of carfilzomib and dexamethasone beginning in May 2015. It was changed to carfilzomib, Revlimid, and dexamethasone beginning in January 2016 due to disease progression. Following further disease progression, his treatment was transitioned to carfilzomib, pomalidomide, and dexamethasone. As of October 2016, due to progressive kidney disease concerning for progressive myeloma, his treatment was changed to daratumumab, Revlimid, and dexamethasone. The Revlimid and dexamethasone were subsequently omitted due to toxicities, and he then continued daratumumab as a single agent. It was administered on a monthly schedule. During this time his kidney function had progressed to end-stage renal disease, and he began on home peritoneal dialysis. He had been receiving treatment at [facility]. He was seen here in October 2017 because he desired to continue his further treatment locally. Following his initial visit he continued monthly daratumumab infusions with no apparent adverse effects and no obvious progression of the myeloma. His hemoglobin/hematocrit levels remained stable above transfusion thresholds. On 06/25/2018 he was seen in the emergency room with increasing weakness. On evaluation, he was found to have a low B12 level at 168 pg/mL, and his TSH level was found to be elevated at 13.500 mIU/mL. He started B12 injections, and he also started thyroid replacement. As of 07/22/2018 there was further decline in the hemoglobin to 8.6 g, and at that point he did start treatment with Procrit. He had a very good response with his hemoglobin increasing to 12.2 g after 2 weekly injections. As of October 2018 he had opted to be admitted to the senior care, and he then began hemodialysis. At that point his erythropoietin stimulating agent was changed to Mircera. He then became progressively more anemic. As of 12/02/2018 his hemoglobin had stabilized at 7.9 g. He then restarted Procrit on 12/17/2018. During this time, he also had continued his monthly daratumumab infusions. His anemia did improve after restarting the Procrit. During follow-up his clinical status had otherwise remained stable. His protein electrophoresis had continued to show a very small M protein spike. There had been no significant change in his serum free light chains. 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 He continued on his monthly daratumumab infusions. As of 12/09/2019 he received cycle 38 of daratumumab. He had been tolerating the treatment well and his clinical status had been stable. However, he had been showing a very gradual increase in his M protein, in the kappa free light chain, and in the kappa/lambda ratio. I had discussed options for further treatment, and we ultimately decided to just try adding back carfilzomib. He began cycle 1 of daratumumab in combination with carfilzomib and dexamethasone on 03/01/2020. He tolerated the day 1 and day 2 carfilzomib infusions without acute toxicity. He was then able to continue with his day 7/8 and day 15/16 carfilzomib infusions on schedule, but he was not able to tolerate any dose escalation due to moderately severe thrombocytopenia. He then continued monthly cycles of treatment with the carfilzomib dosage unchanged. He began cycle 6 on 08/02/2020. His repeat protein electrophoresis studies on 08/22/2020 showed further increase in his M protein to 2.0 g/dL compared to 1.2 g/dL on 02/22/2020. During that same time period his serum free light chain assay showed an increase in the kappa/lambda ratio from 10.52 to 60.22. With continued evidence of disease progression, the daratumumab/carfilzomib regimen was stopped. I had seen him for a follow-up visit on 09/13/2020, at that time I reviewed other treatment options. As he was not having any obvious symptoms associated with the myeloma, he preferred to just continue observation/expectant management. His medical illnesses, in addition to myeloma and renal failure, include hypertension, hyperlipidemia, type II diabetes with peripheral neuropathy, and benign prostatic hypertrophy. He is a nonsmoker. INTERIM HISTORY: As of his follow-up visit in October 2020 his repeat protein electrophoresis showed significant increase in his M protein to 3.0 g/dL. At that point he was still stable clinically and he preferred not to attempt any of the available salvage therapies due to concerns over their potential side effects. He had subsequently developed increased pain in his lower back and pelvic area. A CT of the lumbar spine on 10/03/2020 had shown evidence of acute compression fracture involving the superior endplate of the L2 vertebral body but with minimal loss of vertebral body height. There was annual bulging at L4-5 with moderate central canal stenosis and slight anterolisthesis. Further evaluation with CT of the pelvis on 10/23/2020 showed diffuse demineralization with vague lytic lesions throughout the pelvis and sacrum, suspicious for myeloma or possibly metastatic disease. There is no apparent fracture in the right hip but there was suspected pathologic fracture involving the right inferior pubic ramus with a lytic lesion measuring 2.1 x 1.8 cm. He had radiation oncology consultation with Dr. Delgado on 11/01/2020, and he was given palliative radiation to the right hip area. His clinical course was complicated by significant WIDE LOAD ESCORT toxicity associated with opiate pain medication. He was able to complete his radiation on 11/07/2020 to a total dose of 800 cGy administered in a single fraction. He had a follow-up visit with Dr. Goncalves on 11/27/2020. At that time his right hip pain had improved, but he was reporting severe pain in the low back area. In the absence of any known lytic disease in that area, he was referred to pain management. He subsequently was given a lumbar medial branch block and cervical/thoracic medial branch block on 12/12/2020. In the meantime, we were able to get him approved for a trial of salvage therapy with melphalan flufenamide. He began cycle 1 on 11/29/2020. It was administered at reduced dosage because of his low baseline platelet count. During subsequent follow-up there was a significant further decline in the platelet count, to as low as 16,000, but he did not have any bleeding complications. He had gradual recovery. He continued with cycle 2 on 01/24/2021. There is treatment was again complicated by severe neutropenia and thrombocytopenia, with absolute neutrophil count 100 and platelet count 11,000. He was given platelet pheresis and he also received growth factor support with Neupogen. He again had gradual recovery. He is seen for a follow-up visit. He continues to have very limited activity due to his back pain. He is scheduled to see Dr. Keen on April 03. He has been trying to walk with a walker. His ECOG score is 2. He has good appetite. He has no fever or night sweats. He has had no mouth sores. He has no shortness of breath, cough, or chest pain. He has no GI complaints other than his bowels tend to be loose. He has very little urine output. He has been having pain in his left shoulder and arm. He has numbness/tingling in his feet. Medications: Acetaminophen 2 Tablet (of 325 mg) Oral four times a day PRN, Acyclovir 1 Tablet (of 400 mg) Oral daily, Albuterol Sulfate 1 Vial(s) (of (2.5 mg/3ml) 0.083%) Nebulization solution Inhalation t.i.d. PRN, Albuterol Sulfate 1 Inhalation (of 108 (90 base) mcg/act) Aerosol Powder, Breath Activated Inhalation q 4 hours, Allopurinol 1 Tablet (of 100 mg) Oral daily, ALPRAZolam 1 Tablet (of 0.25 mg) Oral at bedtime, amLODIPine Besylate 1 Tablet (of 2.5 mg) Oral daily, Bisacodyl EC 2 Tablet (of 5 mg) Tablet, enteric coated Oral daily PRN, Calcium Acetate 1 Capsule (of 667 mg) Oral t.i.d., Cipro 1 Tablet (of 500 mg) Oral b.i.d., Fluconazole 1 Tablet (of 100 mg) Oral daily, Furosemide 1 Tablet (of 80 mg) Oral daily, Gentamicin Sulfate 1 (0.1 %) Cream Topical at bedtime, HYDROmorphone HCl 1 (2 mg) Tablet Oral four times a day PRN, Levothyroxine Sodium 1 Tablet (of 50 mcg) Oral daily, Loperamide HCl 1 - 2 Tablet (of 2 mg) Oral PRN, Lovastatin 1 (40 mg) Tablet Oral at bedtime, Metoprolol Succinate ER (25 mg) Tablet SR 24 HR Oral daily, Mucinex 1 Tablet (of 600 mg) Tablet SR 12 HR Oral b.i.d. PRN, Prochlorperazine Maleate 1 Tablet (of 10 mg) Oral q 6 hours PRN, Renvela 3 (800 mg) Tablet Oral daily, Requip 1 Tablet (of 0.5 mg) Oral b.i.d., Tamsulosin HCl 1 Tablet (of 0.4 mg) Capsule Oral b.i.d., Vital-D Rx 1 Tablet (of 1 mg) Oral daily Allergies: Bactrim, Codeine Sulfate, Sulfa Antibiotics, TraMADol HCl, and Verapamil HCl. Vital Signs: Performed on Mar 21, 2021 12:23 Height - 69.00 in Weight - 148.6 lbs (LOW) BSA - 1.82 sq.m BMI - 21.94 Temperature - 98.5 F Pulse - 74 /min Respiration - 18 /min BP - 128/62 mm(hg) O2 Sat - 99 % Pain - 8 Fatigue - 7 Physical Examination: Constitutional - He appears generally weak, Eyes - Sclerae nonicteric. Conjunctivae clear, ENMT - No lesions noted in the oral cavity, Hematologic/Lymphatic - No cervical, clavicular, or axillary adenopathy, Respiratory - Lungs are clear with good air movement bilaterally, Cardiovascular - Heart rhythm is regular. There is a II/ systolic murmur. There is no gallop or rub noted, Abdomen - Soft. Liver and spleen are not enlarged. There is no abdominal mass or ascites noted and there is no inguinal adenopathy, Back/Spine - His pain localizes to the lumbar area to the right of the midline, Extremities - No edema. He has extensive purpura, Neurologic - No focal neurologic deficits noted. Lab/Imaging: Test performed on Mar 21, 2021 13:40 IgG 300 mg/dL IgA 230 mg/dL IgM 36 mg/dL Test performed on Mar 21, 2021 13:10 [place] Free Light Chains 28.7 mg/L Lambda Free Light Chains 12.7 mg/L [place]/Lambda Free Ratio 2.26 Problem List: 1. IgA kappa myeloma, initially diagnosed in September 2011. 2. During follow-up he had progression to end-stage renal disease. He initially had started daily home peritoneal dialysis, but with subsequent transition to hemodialysis. 3. Anemia associated with end-stage renal disease. 4. Hypertension. 5. Hyperlipidemia. 6. Type II diabetes with peripheral neuropathy. 7. Benign prostatic hypertrophy. 8. Hypothyroidism. Problems Addressed with this Encounter and Plan: 1. IgA kappa myeloma, initially diagnosed in September 2011. His myeloma therapy included: 1. Velcade/dexamethasone for 3 cycles, completed December 2011. 2. High-dose melphalan/stem cell transplant in January 2012, complicated by sepsis and acute renal failure requiring hemodialysis. 3. Carfilzomib/dexamethasone for 10 cycles, completed May 2015. 4. Carfilzomib/Revlimid/dexamethasone beginning in January 2016. 5. Carfilzomib/pomalidomide/dexamethasone. 6. Daratumumab/Revlimid/dexamethasone beginning in October 2016. 7. Daratumumab monotherapy until January 2020. 8. Carfilzomib/daratumumab/dexamethasone from 03/01/2020 through 08/31/2020. He had been showing gradual disease progression since September 2019, but has a October 2020 there was a more significant increase in his M protein level, to 3.0 g/dL. He was initially not overtly symptomatic, but he subsequently developed symptomatic bone involvement in the pelvis. He had associated pathologic fracture. He was given palliative radiation to the right hip area, completed on 11/07/2020 to a total dose of 800 cGy administered in a single fraction. In the meantime, we were able to get approval for a trial of salvage therapy with melphalan flufenamide. He began cycle 1 on 11/29/2020. It was administered at a reduced dosage due to baseline thrombocytopenia. During followup his platelet count nadired at 16,000. He had no bleeding. His dory granulocyte count was 600. He had gradual recovery. He continued with cycle 2 on 01/24/2021. The treatment was again complicated by severe neutropenia and thrombocytopenia, requiring growth factor support with Neupogen and platelet pheresis. His blood counts have shown gradual recovery. He continues to have very limited activity, mainly due to his lower back pain. He does appear, though, to be showing a very significant response to the treatment with his current free kappa light chain level down to 28.7 mg/L compared to pretreatment level of 237 mg/L. As such, he will proceed now with his 3rd cycle of treatment. The dosage will remain the same. Blood counts will be monitored weekly. He will be transfused again as needed 2. He has had progressively worsening anemia. He will be transfused transfused PRBC as needed. 3. He has significant pain in his lower back. Management has been problematic due to very poor tolerance for opiate pain medication. His previous CT of the lumbar spine did show no obvious lytic lesions, but there were vertebral compression fractures. He ultimately did receive palliative radiation to the lumbar spine, completed on 02/07/2021. He has since then continued hydromorphone at a low dosage. He is now scheduled to have further evaluation with Dr. Keen. Signed By: Dustin Pinto M.D. <<Signature on File>>
== END 2021-03-21 06:18 | disposition home or self-care (01) ==
LOC: ONCMED 06:19
PROVIDERS: PCP Physician Assistant; Visit Provider Internal Medicine Medical Oncology
DX: C90.00 Multiple myeloma not having achieved remission (principal); I12.0 Hypertensive chronic kidney disease with stage 5 chronic kidney disease or end stage renal disease; N18.6 End stage renal disease; Z99.2 Dependence on renal dialysis; D63.1 Anemia in chronic kidney disease; E11.42 Type 2 diabetes mellitus with diabetic polyneuropathy; E03.9 Hypothyroidism, unspecified; E78.5 Hyperlipidemia, unspecified; N40.0 Benign prostatic hyperplasia without lower urinary tract symptoms; Z92.3 Personal history of irradiation; Z79.899 Other long term (current) drug therapy
CPT/HCPCS: 82784; 83883; 84155; 84165; 96375; 96413; 99214; J1200; J2469; J3490; J7050; J9999

== ENCOUNTER 2021-03-28 06:46 | Outpatient (CLI) | payer MEDICARE, OTHER, SELFPAY ==
[2021-03-28 13:10] LABS: Basophils % 0.8 %; Eosinophils % 1.5 %; Hematocrit 34.8 % (42.0-52.0); Hemoglobin 11.2 g/dL (11.7-16.6); Lymphocytes # 0.1 10^3/uL (0.8-4.8); Lymphocytes % 10.8 %; Mean Corpuscular HGB Conc 32.2 g/dL (30.0-36.0); Mean Corpuscular Volume 111.9 fL (80-94); Monocytes % 2.3 %; Neutrophils # 1.09 10^3/uL (1.8-7.7); Neutrophils % 83.8 %; Nucleated Red Blood Cells % 0 %; Positive C 1; Positive M 1; Red Blood Count 3.11 10^6/uL (4.1-5.3); Red Cell Distribution Width 16.5 % (12.1-15.1); White Blood Count 1.3 10^3/uL (4.0-10.0)
[2021-03-28 13:14] LABS: Platelet Count 23 10^3/cmm (130-400)
[2021-03-28 13:31] LABS: Alanine Aminotransferase 27 U/L (0-41); Albumin Level 3.7 g/dL (3.5-5.2); Alkaline Phosphatase 82 IU/L (40-130); Anion Gap 12.6 (5-19); Aspartate Amino Transferase 29 U/L (0-40); Blood Urea Nitrogen 24 mg/dL (8-23); Calcium 7.6 mg/dL (8.5-10.5); Carbon Dioxide 33 mmol/L (22-29); Chloride 98 mmol/L (98-107); Globulin 1.6 g/dL (1.3-4.6); Glucose 114 mg/dL (65-115); Osmolality Calculated 295 mOsm/kg (285-295); Potassium 3.6 mmol/L (3.5-5.1); Sodium 140 mmol/L (136-145); Total Protein 5.3 g/dL (6.6-8.7)
== END 2021-03-28 06:47 | disposition home or self-care (01) ==
PROVIDERS: PCP Physician Assistant; Visit Provider Internal Medicine Medical Oncology
DX: C90.00 Multiple myeloma not having achieved remission (principal); Z79.899 Other long term (current) drug therapy
CPT/HCPCS: 36415; 36591; 80053; 85025

== ENCOUNTER 2021-04-02 06:53 | Outpatient (CLI) | payer MEDICARE, OTHER, SELFPAY ==
[2021-04-02 14:27] LABS: Eosinophils % 1.2 %; Hematocrit 31.1 % (42.0-52.0); Hemoglobin 10.2 g/dL (11.7-16.6); Lymphocytes # 0.2 10^3/uL (0.8-4.8); Lymphocytes % 19.3 %; Mean Corpuscular HGB Conc 32.8 g/dL (30.0-36.0); Mean Corpuscular Hemoglobin 36.3 pg (28.0-34.0); Mean Corpuscular Volume 110.7 fL (80-94); Monocytes # 0.1 10^3/uL (0.2-0.9); Monocytes % 14.5 %; Nucleated Red Blood Cells % 0 %; Positive C 1; Positive M 1; Red Blood Count 2.81 10^6/uL (4.1-5.3); Red Cell Distribution Width 15.9 % (12.1-15.1)
[2021-04-02 14:38] LABS: Neutrophils # 0.54 10^3/uL (1.8-7.7); Platelet Count 14 10^3/cmm (130-400); Slide Review Slide Review Perform; White Blood Count 0.8 10^3/uL (4.0-10.0)
[2021-04-02 14:57] LABS: Alanine Aminotransferase 33 U/L (0-41); Albumin Level 3.6 g/dL (3.5-5.2); Alkaline Phosphatase 82 IU/L (40-130); Anion Gap 14.2 (5-19); Aspartate Amino Transferase 30 U/L (0-40); Blood Urea Nitrogen 37 mg/dL (8-23); Calcium 7.6 mg/dL (8.5-10.5); Carbon Dioxide 32 mmol/L (22-29); Chloride 99 mmol/L (98-107); Globulin 1.6 g/dL (1.3-4.6); Glucose 82 mg/dL (65-115); Osmolality Calculated 300 mOsm/kg (285-295); Potassium 4.2 mmol/L (3.5-5.1); Sodium 141 mmol/L (136-145); Total Bilirubin 0.6 mg/dL (0.15-1.2); Total Protein 5.2 g/dL (6.6-8.7)
== END 2021-04-02 06:54 | disposition home or self-care (01) ==
LOC: ONCMED 06:55
PROVIDERS: PCP Physician Assistant; Visit Provider Internal Medicine Medical Oncology
DX: C90.00 Multiple myeloma not having achieved remission (principal); N18.6 End stage renal disease; Z99.2 Dependence on renal dialysis; D63.1 Anemia in chronic kidney disease; I12.0 Hypertensive chronic kidney disease with stage 5 chronic kidney disease or end stage renal disease; Z79.899 Other long term (current) drug therapy
CPT/HCPCS: 80053; 85025

== ENCOUNTER → 2021-04-03 14:40 | Outpatient (BNVA) | payer MEDICARE, OTHER, SELFPAY | PROVIDERS: PCP Physician Assistant; Visit Provider Orthopaedic Surgery | DX: M54.9 Dorsalgia, unspecified (principal); M54.5 Low back pain; M81.0 Age-related osteoporosis without current pathological fracture; M19.90 Unspecified osteoarthritis, unspecified site | CPT/HCPCS: 72100 ==

== ENCOUNTER 2021-04-11 06:38 | Outpatient (CLI) | payer MEDICARE, OTHER, SELFPAY ==
[2021-04-11 13:37] LABS: Basophils % 0.7 %; Eosinophils % 1.3 %; Hematocrit 27.6 % (42.0-52.0); Lymphocytes # 0.2 10^3/uL (0.8-4.8); Lymphocytes % 13.2 %; Mean Corpuscular HGB Conc 32.6 g/dL (30.0-36.0); Mean Corpuscular Hemoglobin 35.9 pg (28.0-34.0); Monocytes # 0.3 10^3/uL (0.2-0.9); Monocytes % 17.8 %; Neutrophils # 1.02 10^3/uL (1.8-7.7); Nucleated Red Blood Cells % 0 %; Red Blood Count 2.51 10^6/uL (4.1-5.3); Red Cell Distribution Width 15.7 % (12.1-15.1); White Blood Count 1.5 10^3/uL (4.0-10.0)
[2021-04-11 14:05] LABS: Alanine Aminotransferase 26 U/L (0-41); Albumin Level 3.7 g/dL (3.5-5.2); Alkaline Phosphatase 86 IU/L (40-130); Anion Gap 12.5 (5-19); Aspartate Amino Transferase 24 U/L (0-40); Blood Urea Nitrogen 19 mg/dL (8-23); Calcium 7.6 mg/dL (8.5-10.5); Carbon Dioxide 31 mmol/L (22-29); Chloride 100 mmol/L (98-107); Globulin 1.6 g/dL (1.3-4.6); Glucose 104 mg/dL (65-115); Osmolality Calculated 293 mOsm/kg (285-295); Potassium 3.5 mmol/L (3.5-5.1); Sodium 140 mmol/L (136-145); Total Bilirubin 0.5 mg/dL (0.15-1.2); Total Protein 5.3 g/dL (6.6-8.7)
[2021-04-11 14:39] LABS: Platelet Count 13 10^3/cmm (130-400)
[2021-04-11 14:40] LABS: Slide Review Slide Review Perform
== END 2021-04-11 06:39 | disposition home or self-care (01) ==
LOC: ONCMED 06:40
PROVIDERS: PCP Physician Assistant; Visit Provider Internal Medicine Medical Oncology
DX: C90.00 Multiple myeloma not having achieved remission (principal); N18.6 End stage renal disease; Z99.2 Dependence on renal dialysis; D63.1 Anemia in chronic kidney disease; I12.0 Hypertensive chronic kidney disease with stage 5 chronic kidney disease or end stage renal disease
CPT/HCPCS: 36591; 80053; 85025

== ENCOUNTER → 2021-04-12 10:59 | Day surgery (SDC) | payer MEDICARE, OTHER, SELFPAY | PROVIDERS: PCP Family Medicine; Visit Provider Orthopaedic Surgery | DX: Z01.818 Encounter for other preprocedural examination (principal) | CPT/HCPCS: 93005 ==

== ENCOUNTER 2021-04-16 06:07 | Outpatient (CLI) | payer MEDICARE, OTHER, SELFPAY ==
[2021-04-16 13:18] LABS: Basophils % 0.4 %; Eosinophils % 0.4 %; Hematocrit 26.2 % (42.0-52.0); Hemoglobin 8.7 g/dL (11.7-16.6); Lymphocytes # 0.3 10^3/uL (0.8-4.8); Lymphocytes % 11.2 %; Mean Corpuscular HGB Conc 33.2 g/dL (30.0-36.0); Mean Corpuscular Hemoglobin 35.7 pg (28.0-34.0); Mean Corpuscular Volume 107.4 fl (80-94); Monocytes # 0.3 10^3/uL (0.2-0.9); Monocytes % 12.1 %; Neutrophils % 75.9 %; Nucleated Red Blood Cells % 0 %; Red Blood Count 2.44 10^6/uL (4.1-5.3); Red Cell Distribution Width 15.5 % (12.1-15.1); White Blood Count 2.2 10^3/uL (4.0-10.0)
[2021-04-16 13:43] LABS: Platelet Count 25 10^3/cmm (130-400)
== END 2021-04-16 06:08 | disposition home or self-care (01) ==
LOC: ONCMED 06:09
PROVIDERS: Internal Medicine Medical Oncology; PCP Family Medicine; Visit Provider Nurse Practitioner
DX: C90.00 Multiple myeloma not having achieved remission (principal); N18.6 End stage renal disease; Z99.2 Dependence on renal dialysis; D63.1 Anemia in chronic kidney disease; I12.0 Hypertensive chronic kidney disease with stage 5 chronic kidney disease or end stage renal disease; Z20.822 Contact with and (suspected) exposure to COVID-19
CPT/HCPCS: 36591; 85025; 87635

== ENCOUNTER 2021-04-20 10:38 | Day surgery (SDC) | payer MEDICARE, OTHER, SELFPAY ==
[2021-04-12 10:23] VITALS: BMI 22.1
--- NOTE | 2021-04-12 10:59 | ECG_ITS ---
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
--- NOTE | 2021-04-12 12:38 | ANES.PREANE2 ---
Pre-Anesthetic Assessment Pre-Anesthetic Assessment: Height/Weight: Height 1.75 m Weight 68.039 kg Proposed Procedure: Operation Date: 04/20/21 10:20 Proposed Procedures p right-sided approach L4 5 mm decompression with bilateral decompression 12552 m48.061(Bilateral) - Frantz Keen, DO Was Beta Aiyana taken within 24 hours: N/A Was Clonidine taken within 24 hours: N/A Social: Social History: No alcohol and No tobacco Exam: Pre-Anes Outpt Exam: alert, oriented x 3, clear to auscultation bilaterally and regular rate & rhythm Airway: Submandibular: WNL Cervical ROM: WNL MP: 2 Dentition: Full CV/HEM: CV/HEM: HTN : : Chronic renal failure Comments: Dialysis -- Metabolic: Metabolic: DM, Hyperlipidemia and Thyroid Comments: Chronic steroids Musc/skel: Comments: Multiple myeloma Neuropsych: Neuropsych: Anxiety Anesthetic Plan: ASA status: 3 Anesthesia: General Risk of > 500 ml blood loss (7ml/kg in children): No PFSH Anesthesia PFSH: Family History Mother Cancer BREAST CANCER Grandmother Cancer BREAST CANCER Social History Smoking and tobacco status: never smoked Second hand smoke exposure: No Alcohol intake: never Caregiver/support person: Yes ([facility]SIST[facility] LIVING ) Household members: caregiver Housing: Assisted Living Facility History of recent travel: No Data Anesthesia Cardiac Studies: No Data to Display
[2021-04-20] VITALS (9 sets, daily range): BP systolic 120–147; BP diastolic 56–68; PULSE 67–76; RESP 12–16; TEMP 36.4–36.6; O2SAT 97–100
--- NOTE | 2021-04-20 | SCC_ITS ---
Procedure Done: bilateral L4/5 laminectomy with partial facetctomies 12.2 seconds of fluoroscopic guidance, for a cumulative dose of 2.94 mGy, was provided to Dr. Keen by the radiology department. C-arm images of the lumbar spine were saved for the patient's permanent record. [facility]UN[facility] CAMPUSCraig
--- NOTE | 2021-04-20 | XR_ITS ---
WS: [id number] Lumbar spine, C-arm fluoroscopy, 04/20/2021 Clinical Data: decompression L4/L5 Comparison: Lumbar spine, 04/03/2021. Findings: Dr. Keen performed lumbar decompression at L4-L5 XR/XR lumbar spine 1V [id number] Impression: Lumbar decompression at L4-L5
--- NOTE | 2021-04-20 11:06 | W.PM.OPSUD ---
Surgery/Procedure H&P Update DATE OF PROCEDURE: April 20, 2021 DATE H&P PERFORMED: 04/03/21 H&P UPDATE INFORMATION: I have reviewed H&P completed within last 30 days, I have examined patient prior to procedure and No changes to prior documentation PLANNED PROCEDURE: Operation Date: 04/20/21 12:00 Proposed Procedures p right-sided approach L4 5 decompression with bilateral decompression 94978 m48.061(Bilateral) - Frantz Keen DO
[2021-04-20] MEDS: sodium chloride 0.9% 1,000 ML 30 ML IV (11:52)
--- NOTE | 2021-04-20 11:58 | P.ANESUD_ITS ---
Pre-Anesthetic Update Pre-Anesthetic Assessment: Date of Surgery/Procedure: 04/20/21 Preop Sammi gnosis: lumbar stenosis Proposed Procedure: Operation Date: 04/20/21 12:00 Proposed Procedures p right-sided approach L4 5 decompression with bilateral decompression 29938 m48.061(Bilateral) - Frantz Keen, DO Any changes to Pre-Anesthetic Assessment?: No Last Intake: Intake Last Liquid Date 04/19/21 Last Liquid Time 19:00 Last Solid Date 04/19/21 Last Solid Time 19:00 Vitals: Temperature 97.9 F 04/20/21 11:20 Temperature Source Temporal Artery S can 04/20/21 11:20 Pulse Rate 70 04/20/21 11:20 Respiratory Rate 16 04/20/21 11:20 Blood Pressure 120/66 04/20/21 11:20 Blood Pressure Nadine n 84 04/20/21 11:20 Pulse Oximetry 100 04/20/21 11:20 Oxygen Delivery Me thod 04/20/21 11:20 Exam: Pre-Anes Outpt Exam: alert, oriented x 3, clear to auscultation bilaterally and regular rate & rhythm Cardiac Studies: No Data to Display
[2021-04-20 12:15] LABS: Glucose Point of Care 106 mg/dL (70-110)
[2021-04-20 13:00] LABS: Anion Gap 13.7 (5-19); Blood Urea Nitrogen 19 mg/dL (8-23); Calcium 8.2 mg/dL (8.5-10.5); Carbon Dioxide 31 mmol/L (22-29); Chloride 100 mmol/L (98-107); Glucose 105 mg/dL (65-115); Osmolality Calculated 295 mOsm/kg (285-295); Potassium 3.7 mmol/L (3.5-5.1); Sodium 141 mmol/L (136-145)
--- NOTE | 2021-04-20 14:19 | PM.OP ---
Operative Report Date of procedure: April 20, 2021 Pre-op Diagnosis: lumbar stenosis Post-op diagnosis: same Procedure Done: bilateral L4/5 laminectomy with partial facetctomies Surgeon: Frantz Keen Anesthesia: General Estimated blood loss (mL): 25 Condition: stable Disposition: PACU Procedure: bilateral L4/5 laminectomy with partial facetctomies Patient is brought to the operative suite. After undergoing anesthesia they are placed in the supine position. All areas of impingement are well padded. Patient is then prepped and draped in the normal sterile fashion. A skin incision is made over the L4/5 level. This is confirmed under c-arm guidance. A series of dilators are passed and the tubular retractor is docked on the L4 lamina. A bovie is used to clear the soft tissue off the lamina and the L 4/5 facet joint. A high speed alea is then used to perform the laminectomy and take down the medial aspect of the L 4/5 facet joint. A kerrison rongeure was then used to take down the remaining lamina and smooth the edged of the laminectomy up to the point where the ligamentum flavum attaches. Attention was then brought to the medial aspect of the facet joint. The remaining medial aspect of the superior and inferior aspect of the facet joint were taken down with the kerrison from the pedicle of L4 to L 5. The facet joint had significant hypertrophy. Attention was then brought to the Ligamentum Flavum. The ligament was taken down from the lamina of L4 to L5 and out medially to the remaining facet joint. The ligament was thick. The dura was then exposed. The dura was in good repair. The L4 nerve was then traced with a curette out the L4/5 foramen and found to be adequately decompressed. The L5 nerve was traced with a curette around the L5 pedicle. The lateral recess was opened with a kerrison helping to further decompress the L5 nerve. The tubular retractor was then tilted to the contralateral side. The bovie was used to take down the soft tissue on the spinous process. The high speed alea was used to take down the spinous process and then the contralateral lamina of L4. The kerrison rongeur was used to take down the remaining lamina to the point where the ligamentum flavum attached and the ligamentum flavum was taken down from L4 to L5. The kerrison rongeur was then used to reach across and take down the medial aspect of the contralateral L4/5 facet joint.The currete was used to trace the contralateral L4 nerve out the L4/5 foramen to make sure it was decompressed adequatesly and the L5 was traced around the L5 pedicle. The lateral recess was opened further with the kerrison to ensure the L5 is adequately decompressed. Wound is then irrigated copiously with saline and surgiflo is used to stop any bleeding. The tubular retractor is removed and the wound is closed with vicryl and monocryl suture. Glue is then used to protect the wound. A sterile dressing is then placed. Patient was then placed in the supine position and transferred to the PACU in stable condition.
--- NOTE | 2021-04-20 14:32 | P.PCN_ITS ---
PACU note PACU note: VSS, Good respiratory effort, report to ENVIRONMENTAL WEB CRAWLER Post-Anesthesia Exam: awake
--- NOTE | 2021-04-20 14:32 | PM.PACU ---
PACU note PACU note: VSS, Good respiratory effort, report to BRAIDING MACHINE TENDER Post-Anesthesia Exam: awake
--- NOTE | 2021-04-20 18:25 | ANE.PACU2 ---
Inpatient post-anesthesia follow up: Airway intact: Yes Vital signs: Temperature 97.6 F Pulse Rate 76 Respiratory Rate 15 Blood Pressure 147/68 Pulse Oximetry 100 Oxygen Delivery Me thod Room Air Oxygen Flow Rate Fraction of Inspir ed Oxygen Hydration adequate: Yes Nausea and vomiting: No Pain level: 2 Mental status: Baseline
== END 2021-04-20 16:31 | disposition home or self-care (01) ==
PROVIDERS: Anesthesiology; PCP Family Medicine; Visit Provider Orthopaedic Surgery
PROC: (CPT 63005; principal; 2021-04-20 12:00)
DX: M48.062 Spinal stenosis, lumbar region with neurogenic claudication (principal); I10 Essential (primary) hypertension; E11.9 Type 2 diabetes mellitus without complications; E78.5 Hyperlipidemia, unspecified; F41.9 Anxiety disorder, unspecified
CPT/HCPCS: 63047; 36416; 36592; 72020; 76000; 80048; 82962; 86900; 96365; J0690; J1100; J2405; J2704; J3010; J3490; J7030; P9016; T1015-U1

== ENCOUNTER 2021-04-25 06:22 | Outpatient (CLI) | payer MEDICARE, OTHER, SELFPAY ==
[2021-04-25 13:30] LABS: Basophils % 0.5 %; Eosinophils # 0.1 10^3/uL (0.0-0.8); Eosinophils % 2.6 %; Hematocrit 26.2 % (42.0-52.0); Hemoglobin 8.5 g/dL (11.7-16.6); Lymphocytes # 0.3 10^3/uL (0.8-4.8); Lymphocytes % 13.5 %; Mean Corpuscular HGB Conc 32.4 g/dL (30.0-36.0); Mean Corpuscular Hemoglobin 36.3 pg (28.0-34.0); Mean Platelet Volume 9.6 fL (7.4-10.4); Monocytes # 0.4 10^3/uL (0.2-0.9); Monocytes % 21.4 %; Neutrophils # 1.19 10^3/uL (1.8-7.7); Nucleated Red Blood Cells % 0 %; Platelet Count 49 10^3/cmm (130-400); Red Blood Count 2.34 10^6/uL (4.1-5.3); Red Cell Distribution Width 17.1 % (12.1-15.1); White Blood Count 1.9 10^3/uL (4.0-10.0)
[2021-04-25 13:55] LABS: Alanine Aminotransferase < 5 U/L (0-41); Albumin Level 3.7 g/dL (3.5-5.2); Alkaline Phosphatase 82 IU/L (40-130); Aspartate Amino Transferase 20 U/L (0-40); Blood Urea Nitrogen 13 mg/dL (8-23); Calcium 7.8 mg/dL (8.5-10.5); Carbon Dioxide 36 mmol/L (22-29); Chloride 100 mmol/L (98-107); Globulin 1.8 g/dL (1.3-4.6); Glucose 98 mg/dL (65-115); Osmolality Calculated 294 mOsm/kg (285-295); Sodium 142 mmol/L (136-145); Total Bilirubin 0.5 mg/dL (0.15-1.2); Total Protein 5.5 g/dL (6.6-8.7)
== END 2021-04-25 06:23 | disposition home or self-care (01) ==
LOC: ONCMED 06:23
PROVIDERS: PCP Family Medicine; Visit Provider Internal Medicine Medical Oncology
DX: C90.00 Multiple myeloma not having achieved remission (principal)
CPT/HCPCS: 36591; 80053; 85025

== ENCOUNTER 2021-05-01 06:00 | Outpatient (CLI) | payer MEDICARE, OTHER, SELFPAY ==
[2021-05-01 13:04] LABS: Basophils % 0.3 %; Eosinophils % 0.9 %; Hematocrit 29.5 % (42.0-52.0); Hemoglobin 9.4 g/dL (11.7-16.6); Lymphocytes # 0.3 10^3/uL (0.8-4.8); Lymphocytes % 9.4 %; Mean Corpuscular HGB Conc 31.9 g/dL (30.0-36.0); Mean Corpuscular Hemoglobin 36.4 pg (28.0-34.0); Mean Corpuscular Volume 114.3 fl (80-94); Monocytes # 0.4 10^3/uL (0.2-0.9); Monocytes % 11.8 %; Neutrophils # 2.61 10^3/uL (1.8-7.7); Nucleated Red Blood Cells % 0 %; Platelet Count 55 10^3/cmm (130-400); Red Blood Count 2.58 10^6/uL (4.1-5.3); White Blood Count 3.4 10^3/uL (4.0-10.0)
== END 2021-05-01 06:01 | disposition home or self-care (01) ==
LOC: ONCMED 06:01
PROVIDERS: PCP Family Medicine; Visit Provider Internal Medicine Medical Oncology
DX: C90.02 Multiple myeloma in relapse (principal); N18.6 End stage renal disease; Z99.2 Dependence on renal dialysis; D63.1 Anemia in chronic kidney disease; Z51.12 Encounter for antineoplastic immunotherapy; C90.00 Multiple myeloma not having achieved remission; I12.0 Hypertensive chronic kidney disease with stage 5 chronic kidney disease or end stage renal disease; E78.5 Hyperlipidemia, unspecified; E11.22 Type 2 diabetes mellitus with diabetic chronic kidney disease; E11.42 Type 2 diabetes mellitus with diabetic polyneuropathy; N40.0 Benign prostatic hyperplasia without lower urinary tract symptoms; E03.9 Hypothyroidism, unspecified; Z79.899 Other long term (current) drug therapy
CPT/HCPCS: 36591; 85025

== ENCOUNTER 2021-05-02 05:44 | Outpatient (CLI) | payer MEDICARE, OTHER, SELFPAY ==
[2021-05-02] MEDS: sodium chloride 0.9% 250 ML 75 ML IV (11:56)
[2021-05-02] MEDS: acetaminophen 325 mg Tablet 650 MG PO (11:56)
[2021-05-02] MEDS: palonosetron 0.25 mg/5 mL SDV IV (11:56)
[2021-05-02] MEDS: famotidine 20 mg/2 mL INJ IVP (11:57)
[2021-05-02] MEDS: diphenhydrAMINE 50 mg/mL SDV 1mL 25 MG IV (11:58)
[2021-05-02] MEDS: pegfilgrastim 6 mg/0.6 mL Kit (onpro) SUBCUT (12:45)
--- NOTE | 2021-05-02 12:45 | ONC FU_ITS ---
Dr. Pinto Patient Follow-Up Note Patient: Larry Stephens Unit #: [id number]: 1945 Dicatated By: Dustin Pinto M.D.Date of Visit:May 02, 2021 Onc Med Follow-up/Prog Note Chief Complaint: Multiple myeloma. History of Present Illness: This is a 75 year-old man with relapsed IgA kappa myeloma. He has associated end-stage renal disease and anemia. He had pre-existing hypertension, hyperlipidemia, and type II diabetes. He had developed stage III chronic kidney disease following a colonoscopy prep. He had been seeing Dr. Miguelangel Cha for his nephrology follow-up care, and he was then found to have evidence of IgA kappa monoclonal gammopathy in October 2010. He was initially seen here by Dr. Plasencia in September 2011. At that point his protein electrophoresis showed IgA kappa monoclonal protein quantitating at 1.3 g/dL with 0.2 g/dL of free kappa monoclonal protein. UPEP was reportedly unrevealing. Bone marrow aspiration/biopsy showed 12% plasma cells. 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 There was no evidence of lytic bone involvement. His baseline creatinine was 1.8 mg/dL. He was treated initially with 3 cycles of Velcade/dexamethasone between October and December 2011. He required a dose reduction in the Velcade due to neuropathy. His repeat bone marrow aspiration/biopsy at [facility] on 01/01/2012 showed increase in the plasma cells to 17%. He then continued treatment at [facility] with autologous peripheral stem cell transplant in January 2012, I assume with high-dose melphalan, though it is not stated in the available records. The procedure was complicated by sepsis and acute renal failure requiring hemodialysis. He had subsequent relapse of the myeloma. His further treatment included 10 cycles of carfilzomib and dexamethasone beginning in May 2015. It was changed to carfilzomib, Revlimid, and dexamethasone beginning in January 2016 due to disease progression. Following further disease progression, his treatment was transitioned to carfilzomib, pomalidomide, and dexamethasone. As of October 2016, due to progressive kidney disease concerning for progressive myeloma, his treatment was changed to daratumumab, Revlimid, and dexamethasone. The Revlimid and dexamethasone were subsequently omitted due to toxicities, and he then continued daratumumab as a single agent. It was administered on a monthly schedule. During this time his kidney function had progressed to end-stage renal disease, and he began on home peritoneal dialysis. He had been receiving treatment at [facility]. He was seen here in October 2017 because he desired to continue his further treatment locally. Following his initial visit he continued monthly daratumumab infusions with no apparent adverse effects and no obvious progression of the myeloma. His hemoglobin/hematocrit levels remained stable above transfusion thresholds. On 06/25/2018 he was seen in the emergency room with increasing weakness. On evaluation, he was found to have a low B12 level at 168 pg/mL, and his TSH level was found to be elevated at 13.500 mIU/mL. He started B12 injections, and he also started thyroid replacement. As of 07/22/2018 there was further decline in the hemoglobin to 8.6 g, and at that point he did start treatment with Procrit. He had a very good response with his hemoglobin increasing to 12.2 g after 2 weekly injections. As of October 2018 he had [facility], and he then began hemodialysis. At that point his erythropoietin stimulating agent was changed to Mircera. He then became progressively more anemic. As of 12/02/2018 his hemoglobin had stabilized at 7.9 g. He then restarted Procrit on 12/17/2018. During this time, he also had continued his monthly daratumumab infusions. His anemia did improve after restarting the Procrit. During follow-up his clinical status had otherwise remained stable. His protein electrophoresis had continued to show a very small M protein spike. There had been no significant change in his serum free light chains. 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 He continued on his monthly daratumumab infusions. As of 12/09/2019 he received cycle 38 of daratumumab. He had been tolerating the treatment well and his clinical status had been stable. However, he had been showing a very gradual increase in his M protein, in the kappa free light chain, and in the kappa/lambda ratio. I had discussed options for further treatment, and we ultimately decided to just try adding back carfilzomib. He began cycle 1 of daratumumab in combination with carfilzomib and dexamethasone on 03/01/2020. He tolerated the day 1 and day 2 carfilzomib infusions without acute toxicity. He was then able to continue with his day 7/8 and day 15/16 carfilzomib infusions on schedule, but he was not able to tolerate any dose escalation due to moderately severe thrombocytopenia. He then continued monthly cycles of treatment with the carfilzomib dosage unchanged. He began cycle 6 on 08/02/2020. His repeat protein electrophoresis studies on 08/22/2020 showed further increase in his M protein to 2.0 g/dL compared to 1.2 g/dL on 02/22/2020. During that same time period his serum free light chain assay showed an increase in the kappa/lambda ratio from 10.52 to 60.22. With continued evidence of disease progression, the daratumumab/carfilzomib regimen was stopped. I had seen him for a follow-up visit on 09/13/2020, at that time I reviewed other treatment options. As he was not having any obvious symptoms associated with the myeloma, he preferred to just continue observation/expectant management. His medical illnesses, in addition to myeloma and renal failure, include hypertension, hyperlipidemia, type II diabetes with peripheral neuropathy, and benign prostatic hypertrophy. He is a nonsmoker. INTERIM HISTORY: As of his follow-up visit in October 2020 his repeat protein electrophoresis showed significant increase in his M protein to 3.0 g/dL. At that point he was still stable clinically and he preferred not to attempt any of the available salvage therapies due to concerns over their potential side effects. He had subsequently developed increased pain in his lower back and pelvic area. A CT of the lumbar spine on 10/03/2020 had shown evidence of acute compression fracture involving the superior endplate of the L2 vertebral body but with minimal loss of vertebral body height. There was annual bulging at L4-5 with moderate central canal stenosis and slight anterolisthesis. Further evaluation with CT of the pelvis on 10/23/2020 showed diffuse demineralization with vague lytic lesions throughout the pelvis and sacrum, suspicious for myeloma or possibly metastatic disease. There is no apparent fracture in the right hip but there was suspected pathologic fracture involving the right inferior pubic ramus with a lytic lesion measuring 2.1 x 1.8 cm. He had radiation oncology consultation with Dr. Delgado on 11/01/2020, and he was given palliative radiation to the right hip area. His clinical course was complicated by significant [employer]GRAM [employer] toxicity associated with opiate pain medication. He was able to complete his radiation on 11/07/2020 to a total dose of 800 cGy administered in a single fraction. He had a follow-up visit with Dr. Goncalves on 11/27/2020. At that time his right hip pain had improved, but he was reporting severe pain in the low back area. In the absence of any known lytic disease in that area, he was referred to pain management. He subsequently was given a lumbar medial branch block and cervical/thoracic medial branch block on 12/12/2020. In the meantime, we were able to get him approved for a trial of salvage therapy with melphalan flufenamide. He began cycle 1 on 11/29/2020. It was administered at reduced dosage because of his low baseline platelet count. During subsequent follow-up there was a significant further decline in the platelet count, to as low as 16,000, but he did not have any bleeding complications. He had gradual recovery. He continued with cycle 2 on 01/24/2021. At that point he was still having significant back pain, and his repeat MRI of the lumbar spine at that time showed multiple new compression fractures involving L3, L4, and L5 vertebral bodies. There was also new anterior wedging at T11 and T12. Jacki while you were thinking later by his follow-up serum protein electrophoresis on 02/21/2021 showed a significant decline in the M protein, to 0.1 g/dL. There was a moderate central canal stenosis noted at L4-5. MRI of the pelvis on 02/01/2021 showed innumerable enhancing myelomatous lesions throughout the lower thoracic spine, pelvis, sacrum, and proximal femurs. MRI of the thoracic spine on 02/13/2021 again showed diffuse heterogeneous enhancing myelomatous lesions throughout the thoracic spine. There were some small disc protrusions. There was no high-grade central canal stenosis. With those findings he was given additional palliative radiation from T12-S1, completed 02/07/2021 to a total dose of 1500 cGy administered in 5 fractions. As of his follow-up visit on 03/21/2021 he continued to have mild to moderately severe neutropenia and thrombocytopenia, but he had shown some recovery, and he continued with cycle 3 of melphalan flufenamide. His repeat protein electrophoresis showed stable M protein of 0.2 g/dL. On 04/20/2021 he underwent bilateral L4/5 laminectomy with partial facetectomies. He was given a platelet pheresis prophylactically, and he tolerated the procedure well. He is seen for a follow-up visit. His total having back pain despite the radiation and his recent surgery. However, he has been able to get by without taking as much pain medication. He also has improved his activity, as he has been walking more. His ECOG score is 2. He has good appetite. He has no fever or night sweats. He has not had sore mouth or throat. He has no shortness of breath, cough, or chest pain. He has some constipation with the pain medication. He has no other GI complaints. He still has a little bit of urine output. He recently has had sciatic nerve pain acting up in his right leg and he also has been having some pain in his left arm. He does not complain of headache or dizziness. He sometimes has numbness in his feet. Medications: Acetaminophen 2 Tablet (of 325 mg) Oral four times a day PRN, Acyclovir 1 Tablet (of 400 mg) Oral daily, Albuterol Sulfate 1 Vial(s) (of (2.5 mg/3ml) 0.083%) Nebulization solution Inhalation t.i.d. PRN, Albuterol Sulfate 1 Inhalation (of 108 (90 base) mcg/act) Aerosol Powder, Breath Activated Inhalation q 4 hours, Allopurinol 1 Tablet (of 100 mg) Oral daily, ALPRAZolam 1 Tablet (of 0.25 mg) Oral at bedtime, amLODIPine Besylate 1 Tablet (of 2.5 mg) Oral daily, Bisacodyl EC 2 Tablet (of 5 mg) Tablet, enteric coated Oral daily PRN, Calcium Acetate 1 Capsule (of 667 mg) Oral t.i.d., Cipro 1 Tablet (of 500 mg) Oral b.i.d., Fluconazole 1 Tablet (of 100 mg) Oral daily, Furosemide 1 Tablet (of 80 mg) Oral daily, Gentamicin Sulfate 1 (0.1 %) Cream Topical at bedtime, HYDROmorphone HCl 1 (2 mg) Tablet Oral four times a day PRN, Levothyroxine Sodium 1 Tablet (of 50 mcg) Oral daily, Loperamide HCl 1 - 2 Tablet (of 2 mg) Oral PRN, Lovastatin 1 (40 mg) Tablet Oral at bedtime, Metoprolol Succinate ER (25 mg) Tablet SR 24 HR Oral daily, Mucinex 1 Tablet (of 600 mg) Tablet SR 12 HR Oral b.i.d. PRN, Prochlorperazine Maleate 1 Tablet (of 10 mg) Oral q 6 hours PRN, Renvela 3 (800 mg) Tablet Oral daily, Requip 1 Tablet (of 0.5 mg) Oral b.i.d., Tamsulosin HCl 1 Tablet (of 0.4 mg) Capsule Oral b.i.d., Vital-D Rx 1 Tablet (of 1 mg) Oral daily Allergies: Bactrim, Codeine Sulfate, Sulfa Antibiotics, TraMADol HCl, and Verapamil HCl. Vital Signs: Performed on May 02, 2021 10:39 Height - 69.00 in Weight - 147.6 lbs (LOW) BSA - 1.82 sq.m BMI - 21.80 Temperature - 98.1 F (LOW) Pulse - 77 /min Respiration - 15 /min BP - 117/57 mm(hg) O2 Sat - 96 % Pain - 7 Physical Examination: Constitutional - He appears somewhat weak generally, Eyes - Sclerae nonicteric. Conjunctivae clear, ENMT - No lesions noted in the oral cavity, Hematologic/Lymphatic - No cervical, clavicular, or axillary adenopathy, Respiratory - Lungs are clear with good air movement bilaterally, Cardiovascular - Heart rhythm is regular. There is a II/ systolic murmur. There is no gallop or rub noted, Abdomen - Soft. Liver and spleen are not enlarged. There is no abdominal mass or ascites noted and there is no inguinal adenopathy, Extremities - No edema. He has extensive purpura, Neurologic - No focal neurologic deficits noted. Lab/Imaging: Test performed on Apr 25, 2021 13:10 Sodium 142 mmol/L Potassium 4.0 mmol/L Chloride 100 mmol/L CO2 36 mmol/L Anion Gap 10.0 BUN 13 mg/dL Creatinine 2.5 mg/dL Cr Clearance (Est) 24.7200 mL/min Glucose 98 mg/dL Osmolality - Calculated 294 mOsm/kg Calcium 7.8 mg/dL Protein, Total 5.5 g/dL Albumin 3.7 g/dL Globulin 1.8 g/dL Bilirubin, Total 0.5 mg/dL ALT (SGPT) < 5 U/L AST (SGOT) 20 U/L Alkaline Phosphatase 82 IU/L WBC 1.9 10 3/uL RBC 2.34 10 6/uL HGB 8.5 g/dL HCT 26.2 % MCV 112.0 fl MCH 36.3 pg MCHC 32.4 g/dL RDW 17.1 % Platelet Count 49 10 3/cmm MPV 9.6 fL Neutrophils 1.19 10 3/uL Lymphocytes 0.3 10 3/uL Monocytes 0.4 10 3/uL Eosinophils 0.1 10 3/uL Basophils 0.0 10 3/uL Neutrophil % 62.0 % Lymphocyte % 13.5 % Monocyte % 21.4 % Eosinophil % 2.6 % Basophils % 0.5 % NRBC % 0 % Problem List: 1. IgA kappa myeloma, initially diagnosed in September 2011. 2. During follow-up he had progression to end-stage renal disease. He initially had started daily home peritoneal dialysis, but with subsequent transition to hemodialysis. 3. Anemia associated with end-stage renal disease. 4. Hypertension. 5. Hyperlipidemia. 6. Type II diabetes with peripheral neuropathy. 7. Benign prostatic hypertrophy. 8. Hypothyroidism. Problems Addressed with this Encounter and Plan: 1. Patient with IgA kappa myeloma, initially diagnosed in September 2011. His myeloma therapy included: 1. Velcade/dexamethasone for 3 cycles, completed December 2011. 2. High-dose melphalan/stem cell transplant in January 2012, complicated by sepsis and acute renal failure requiring hemodialysis. 3. Carfilzomib/dexamethasone for 10 cycles, completed May 2015. 4. Carfilzomib/Revlimid/dexamethasone beginning in January 2016. 5. Carfilzomib/pomalidomide/dexamethasone. 6. Daratumumab/Revlimid/dexamethasone beginning in October 2016. 7. Daratumumab monotherapy until January 2020. 8. Carfilzomib/daratumumab/dexamethasone from 03/01/2020 through 08/31/2020. He had been showing gradual disease progression since September 2019, but has a October 2020 there was a more significant increase in his M protein level, to 3.0 g/dL. He was initially not overtly symptomatic, but he subsequently developed symptomatic bone involvement in the pelvis. He had associated pathologic fracture. He was given palliative radiation to the right hip area, completed on 11/07/2020 to a total dose of 800 cGy administered in a single fraction. In the meantime, we were able to get approval for a trial of salvage therapy with melphalan flufenamide. He began cycle 1 on 11/29/2020. It was administered at a reduced dosage due to baseline thrombocytopenia. During followup his platelet count nadired at 16,000. He had no bleeding. His dory granulocyte count was 600. He had gradual recovery. He continued with cycle 2 on 01/24/2021. The treatment was again complicated by severe neutropenia and thrombocytopenia, requiring growth factor support with Neupogen and platelet pheresis. During subsequent follow-up he did show some recovery of his blood counts. He was able to continue with cycle 3 of melphalan flufenamide on 03/21/2021. At that point he continued to show significant response by protein electrophoresis, with his M protein stable at 0.2 g/dL. He has since then continued to have moderately severe neutropenia, moderate to severe thrombocytopenia, and transfusion dependent anemia. He has had some recovery, though, and he will continue now with cycle 4 of melphalan flufenamide. The dosage remains the same, but I will now add Neulasta prophylactically. Blood counts will be monitored weekly. I will tentatively plan a follow-up visit in 6 weeks. 2. He has significant pain in his lower back. Management has been problematic due to very poor tolerance for opiate pain medication. His previous CT of the lumbar spine did show no obvious lytic lesions, but there were vertebral compression fractures. He ultimately did receive palliative radiation to the lumbar spine, completed on 02/07/2021. He underwent bilateral L4/5 laminectomy on 04/20/2021. At this point he is still having some back pain, but he has been able to reduce his opiate requirement and he has been able to increase his activity. He will continue to take hydromorphone as needed. Signed By: Dusitn Pinto M.D. <<Signature on File>>
== END 2021-05-02 05:45 | disposition home or self-care (01) ==
LOC: ONCMED 05:46
PROVIDERS: PCP Family Medicine; Visit Provider Internal Medicine Medical Oncology
DX: Z51.12 Encounter for antineoplastic immunotherapy (principal); C90.00 Multiple myeloma not having achieved remission; N18.6 End stage renal disease; Z99.2 Dependence on renal dialysis; D63.1 Anemia in chronic kidney disease; I12.0 Hypertensive chronic kidney disease with stage 5 chronic kidney disease or end stage renal disease; E78.5 Hyperlipidemia, unspecified; E11.22 Type 2 diabetes mellitus with diabetic chronic kidney disease; E11.42 Type 2 diabetes mellitus with diabetic polyneuropathy; N40.0 Benign prostatic hyperplasia without lower urinary tract symptoms; E03.9 Hypothyroidism, unspecified; Z79.899 Other long term (current) drug therapy
CPT/HCPCS: 96372; 96375; 96377; 96413; 99215; J1200; J2469; J2505; J3490; J7050; J9999

== ENCOUNTER 2021-05-08 06:13 | Outpatient (CLI) | payer MEDICARE, OTHER, SELFPAY ==
[2021-05-08 11:50] LABS: Basophils % 2.9 %; Eosinophils % 2.9 %; Hematocrit 27.1 % (42.0-52.0); Hemoglobin 8.6 g/dL (11.7-16.6); Lymphocytes # 0.1 10^3/uL (0.8-4.8); Lymphocytes % 22.9 %; Mean Corpuscular HGB Conc 31.7 g/dL (30.0-36.0); Mean Corpuscular Volume 113.4 fl (80-94); Monocytes % 8.6 %; Neutrophils % 62.7 %; Nucleated Red Blood Cells % 0 %; Platelet Count 30 10^3/cmm (130-400); Red Blood Count 2.39 10^6/uL (4.1-5.3)
[2021-05-08 13:44] LABS: Neutrophils # 0.22 10^3/uL (1.8-7.7); Slide Review Slide Review Perform; White Blood Count 0.4 10^3/uL (4.0-10.0)
== END 2021-05-08 06:14 | disposition home or self-care (01) ==
LOC: ONCMED 06:14
PROVIDERS: PCP Family Medicine; Visit Provider Internal Medicine Medical Oncology
DX: C90.02 Multiple myeloma in relapse (principal); N18.6 End stage renal disease; Z99.2 Dependence on renal dialysis; D63.1 Anemia in chronic kidney disease
CPT/HCPCS: 36591; 85025

== ENCOUNTER 2021-05-15 06:14 | Outpatient (CLI) | payer MEDICARE, OTHER, SELFPAY ==
[2021-05-15 09:57] LABS: Eosinophils % 1.1 %; Hematocrit 26.4 % (42.0-52.0); Hemoglobin 8.5 g/dL (11.7-16.6); Lymphocytes # 0.2 10^3/uL (0.8-4.8); Lymphocytes % 21.3 %; Mean Corpuscular HGB Conc 32.2 g/dL (30.0-36.0); Mean Corpuscular Hemoglobin 36.5 pg (28.0-34.0); Mean Corpuscular Volume 113.3 fl (80-94); Monocytes # 0.2 10^3/uL (0.2-0.9); Neutrophils % 60.5 %; Nucleated Red Blood Cells % 0 %; Red Blood Count 2.33 10^6/uL (4.1-5.3); Red Cell Distribution Width 19.9 % (12.1-15.1)
[2021-05-15 10:08] LABS: Neutrophils # 0.57 10^3/uL (1.8-7.7); Platelet Count 8 10^3/cmm (130-400); White Blood Count 0.9 10^3/uL (4.0-10.0)
== END 2021-05-15 06:15 | disposition home or self-care (01) ==
LOC: ONCMED 06:14
PROVIDERS: PCP Family Medicine; Visit Provider Internal Medicine Medical Oncology
DX: C90.02 Multiple myeloma in relapse (principal); N18.6 End stage renal disease; Z99.2 Dependence on renal dialysis; D63.1 Anemia in chronic kidney disease
CPT/HCPCS: 36591; 85025

== ENCOUNTER 2021-05-16 12:37 | Outpatient (CLI) | payer MEDICARE, OTHER, SELFPAY ==
[2021-05-16 13:00] VITALS: BP 94/54; PULSE 69; RESP 18; TEMP 36.4; O2SAT 99
[2021-05-16] MEDS: diphenhydrAMINE 25 mg Capsule PO (13:00)
[2021-05-16] MEDS: acetaminophen 325 mg Tablet 650 MG PO (13:00)
[2021-05-16 13:15] VITALS: BP 96/54; PULSE 69; RESP 18; TEMP 36.6; O2SAT 99
== END 2021-05-16 12:38 | disposition home or self-care (01) ==
LOC: ONCMED 12:38
PROVIDERS: PCP Family Medicine; Visit Provider Internal Medicine Medical Oncology
DX: C90.02 Multiple myeloma in relapse (principal); D64.9 Anemia, unspecified; N18.6 End stage renal disease; Z99.2 Dependence on renal dialysis; D63.1 Anemia in chronic kidney disease
CPT/HCPCS: 36430; 36591; 85025; 86900; P9040

== ENCOUNTER → 2021-05-18 12:39 | Outpatient (BNVA) | payer MEDICARE, OTHER, SELFPAY | PROVIDERS: PCP Family Medicine; Visit Provider Surgery | DX: Z01.812 Encounter for preprocedural laboratory examination (principal); Z20.822 Contact with and (suspected) exposure to COVID-19 | CPT/HCPCS: 87635 ==

== ENCOUNTER 2021-05-22 06:41 | Outpatient (CLI) | payer MEDICARE, OTHER, SELFPAY | END 2021-05-22 06:42 | disposition home or self-care (01) | LOC: ONCMED 06:41 | PROVIDERS: PCP Family Medicine; Visit Provider Internal Medicine Medical Oncology | DX: C90.02 Multiple myeloma in relapse (principal); N18.6 End stage renal disease; Z99.2 Dependence on renal dialysis; D63.1 Anemia in chronic kidney disease; I12.0 Hypertensive chronic kidney disease with stage 5 chronic kidney disease or end stage renal disease | CPT/HCPCS: 36591; 80053; 85025; 86850; 86900; 86920 ==

== ENCOUNTER 2021-05-23 09:18 | Outpatient (CLI) | payer MEDICARE, OTHER, SELFPAY ==
[2021-05-22 11:22] LABS: Eosinophils % 0.9 %; Hematocrit 25.8 % (42.0-52.0); Hemoglobin 8.3 g/dL (11.7-16.6); Lymphocytes # 0.2 10^3/uL (0.8-4.8); Lymphocytes % 16.5 %; Mean Corpuscular HGB Conc 32.2 g/dL (30.0-36.0); Mean Corpuscular Hemoglobin 36.9 pg (28.0-34.0); Mean Corpuscular Volume 114.7 fl (80-94); Monocytes # 0.2 10^3/uL (0.2-0.9); Monocytes % 17.4 %; Neutrophils % 64.3 %; Nucleated Red Blood Cells % 0 %; Red Blood Count 2.25 10^6/uL (4.1-5.3); Red Cell Distribution Width 21.2 % (12.1-15.1); White Blood Count 1.2 10^3/uL (4.0-10.0)
[2021-05-22 11:37] LABS: Alanine Aminotransferase 18 U/L (0-41); Albumin Level 3.4 g/dL (3.5-5.2); Alkaline Phosphatase 77 IU/L (40-130); Aspartate Amino Transferase 17 U/L (0-40); Blood Urea Nitrogen 32 mg/dL (8-23); Calcium 8.4 mg/dL (8.5-10.5); Carbon Dioxide 31 mmol/L (22-29); Chloride 102 mmol/L (98-107); Globulin 1.6 g/dL (1.3-4.6); Glucose 81 mg/dL (65-115); Osmolality Calculated 298 mOsm/kg (285-295); Sodium 141 mmol/L (136-145); Total Bilirubin 0.6 mg/dL (0.15-1.2)
[2021-05-22 11:39] LABS: Anion Gap 12.5 (5-19); Potassium 4.5 mmol/L (3.5-5.1)
[2021-05-22 12:00] LABS: Neutrophils # 0.74 10^3/uL (1.8-7.7)
[2021-05-22 12:01] LABS: Platelet Count 10 10^3/cmm (130-400)
[2021-05-22 12:02] LABS: Slide Review Slide Review Perform
[2021-05-23] VITALS (9 sets, daily range): BP systolic 82–108; BP diastolic 42–59; PULSE 64–69; RESP 18; TEMP 36.4–37.3; O2SAT 96–99
[2021-05-23] MEDS: sodium chloride 0.9% 250 ML 999 ML IV (11:25)
[2021-05-23] MEDS: FUROsemide 10 mg/mL SDV 2mL 20 MG IV (13:00)
[2021-05-24 10:44] VITALS: BP 119/62; RESP 18; TEMP 37
[2021-05-24 10:57] VITALS: BP 121/56; RESP 18; TEMP 36.3
[2021-05-24 11:11] VITALS: RESP 18; TEMP 36.7; O2SAT 94
== END 2021-05-23 09:19 | disposition home or self-care (01) ==
LOC: ONCMED 09:50
PROVIDERS: PCP Family Medicine; Visit Provider Internal Medicine Medical Oncology
DX: C90.00 Multiple myeloma not having achieved remission (principal); N18.6 End stage renal disease; Z99.2 Dependence on renal dialysis; D63.1 Anemia in chronic kidney disease; I12.0 Hypertensive chronic kidney disease with stage 5 chronic kidney disease or end stage renal disease; Z79.899 Other long term (current) drug therapy
CPT/HCPCS: 36430; 80053; 85025; 86850; 86900; 86920; J1940; J7050; P9040

== ENCOUNTER 2021-05-24 09:16 | Day surgery (SDC) | payer MEDICARE, OTHER, SELFPAY ==
[2021-05-23 13:54] VITALS: BMI 21.8
--- NOTE | 2021-05-24 10:06 | W.PM.OPSUD ---
Surgery/Procedure H&P Update DATE OF PROCEDURE: May 24, 2021 DATE H&P PERFORMED: 05/08/21 H&P UPDATE INFORMATION: No changes to prior documentation PREOP DIAGNOSIS: 1. Left inguinal hernia.2. Umbilical hernia. PLANNED PROCEDURE: Operation Date: 05/24/21 11:00 Proposed Procedures p Inguinal Hernia Repair w/ Mesh(Left) - Orlando Landry MD s Umbilical Hernia Repair(Not Applicable) - Orlando Landry MD
[2021-05-24 10:07] VITALS: BP 140/61; PULSE 71; RESP 18; TEMP 37.3; O2SAT 100
[2021-05-24] MEDS: acetaminophen 325 mg Tablet 650 MG PO (10:47)
[2021-05-24] MEDS: diphenhydrAMINE 25 mg Capsule PO (10:47)
[2021-05-24] MEDS: sodium chloride 0.9% 1,000 ML 30 ML IV (11:00)
--- NOTE | 2021-05-24 11:10 | P.OP_ITS ---
Operative Report Date of procedure: May 24, 2021 Pre-op Diagnosis: 1. Left inguinal hernia.2. Umbilical hernia. Post-op Diagnosis: 1. Left indirect inguinal hernia. 2. Umbilical hernia. Procedure Done: 1. Repair of left inguinal hernia with mesh. 2. Repair of umbilical hernia. Specimens removed/disposition: None sent. Surgeon: Orlando Landry Anesthesia: MAC Estimated blood loss (mL): 5 Complications: None. Condition: stable Disposition: PACU Procedure: The patient was brought to the operating room and was placed in a supine position on the operating room table. A monitored anesthetic was induced. The lower abdomen including the umbilical region in the left inguinal region were prepped and draped in a sterile fashion. A combination of 1% lidocaine and 0.5% bupivacaine with 1-200,000 parts epinephrine was used for local anesthesia throughout the procedures. Attention was first directed to the umbilicus. A curvilinear incision was carried out underneath the umbilicus. Sharp dissection and cautery were used to separate the dependent portion of the umbilical skin from the hernia sac. The herniated contents were then freed from the surrounding subcutaneous tissue down to the fascial defect using cautery. The herniated contents were then reduced through the defect which measured under 1 cm in diameter. The small defect was closed transversely using an inverted suture of 0 Prolene. A vhlnul-ju-iuliv suture of 0 Vicryl was used to buttress the repair in between the Prolene sutures. The wound was irrigated. The dependent portion of the umbilical skin was brought back down to the fascia with a suture of 0 Vicryl. The skin was reapproximated using a running subcuticular suture of 4-0 Vicryl. Attention was then directed to the left inguinal region. A transverse incision was carried out above the level of the pubic tubercle. Cautery was used to divide the subcutaneous tissue down to the external oblique aponeurosis which was incised in parallel with its fibers over the inguinal canal. The spermatic cord was looped with a [place] drain. An indirect hernia was found at the internal ring along with some preperitoneal fat coming through the internal ring. The preperitoneal fat was freed down to the internal ring and was excised. The hernia sac and contents were carefully freed from the cord struct ures down to the internal ring and the hernia sac was reduced. A large mesh plug was used to hold the hernia sac in a reduced position and was held in place with sutures of 0 Prolene that were used to connect the conjoined area medially to the reflecting edge of Poupart's ligament laterally. The onlay patch was anchored at the tubercle with a suture of 0 Prolene and was laid along the inguinal canal floor, allowing the cord structures to pass through the precut hole in the mesh. The two wings of mesh were sewn to each other above the level of the internal ring with a suture of 0 Prolene. The external oblique aponeurosis was closed over the top of the cord using a running suture of 3-0 Vicryl. The wound was irrigated with saline. The subcutaneous tissue was brought together with a simple suture of 3-0 Vicryl and the skin was approximated using a running subcuticular suture of 3-0 Vicryl. Benzoin and Steri-Strips were placed over the incisions and sterile bandages followed. The patient was taken to the recovery area in stable condition postoperatively.
--- NOTE | 2021-05-24 11:12 | ANES.PREANE2 ---
Pre-Anesthetic Assessment Pre-Anesthetic Assessment: Height/Weight: Height 1.75 m Weight 67.132 kg Temp Pulse Resp BP Pulse Ox 99.2 F 71 18 140/61 100 05/24/21 10:07 05/24/21 10:07 05/24/21 10:07 05/24/21 10:07 05/24/21 10:07 Preop Diagnosis: 1. Left inguinal hernia.2. Umbilical hernia. Proposed Procedure: Operation Date: 05/24/21 11:00 Proposed Procedures p Inguinal Hernia Repair w/ Mesh(Left) - Orlando Landry MD s Umbilical Hernia Repair(Not Applicable) - Orlando Landry MD Was Beta Aiyana taken within 24 hours: Yes Was Clonidine taken within 24 hours: N/A Last intake: Intake Last Liquid Date 05/23/21 Last Liquid Time 16:00 Last Solid Date 05/23/21 Last Solid Time 16:00 Social: Social History: No alcohol and No tobacco Exam: Pre-Anes Outpt Exam: alert, oriented x 3, clear to auscultation bilaterally and regular rate & rhythm Airway: Submandibular: WNL Cervical ROM: WNL MP: 2 Dentition: Chipped CV/HEM: CV/HEM: Anemia and HTN Comments: Multiple myeloma, low platelets Metabolic: Metabolic: Hyperlipidemia and Thyroid Musc/skel: Musc/skel: Lower Back Pain Anesthetic Plan: ASA status: 3 Anesthesia: MAC Risk of > 500 ml blood loss (7ml/kg in children): No PFSH Anesthesia PFSH: Family History Mother Cancer BREAST CANCER Grandmother Cancer BREAST CANCER Social History Smoking and tobacco status: never smoked Second hand smoke exposure: No Alcohol intake: never Caregiver/support person: Yes ([facility]SISTED LIVING ) Household members: caregiver Housing: Assisted Living Facility History of recent travel: No Data Anesthesia Cardiac Studies: No Data to Display
[2021-05-24 12:15] VITALS: BP 103/56; PULSE 80; RESP 16; TEMP 36.9; O2SAT 100
[2021-05-24 12:20] VITALS: BP 103/56; PULSE 78; RESP 20; TEMP 36.5; O2SAT 96
[2021-05-24 12:36] VITALS: BP 110/62; PULSE 72; RESP 18; TEMP 36.8; O2SAT 98
[2021-05-24 13:09] VITALS: BP 111/84; PULSE 74; RESP 18; TEMP 36.8; O2SAT 99
== END 2021-05-24 13:42 | disposition home or self-care (01) ==
PROVIDERS: PCP Family Medicine; Visit Provider Surgery
PROC: (CPT 49505; principal; 2021-05-24 10:55)
PROC: (CPT 49505; 2021-05-24 10:55)
DX: K40.90 Unilateral inguinal hernia, without obstruction or gangrene, not specified as recurrent (principal); K42.9 Umbilical hernia without obstruction or gangrene; E11.22 Type 2 diabetes mellitus with diabetic chronic kidney disease; I12.9 Hypertensive chronic kidney disease with stage 1 through stage 4 chronic kidney disease, or unspecified chronic kidney disease; N18.9 Chronic kidney disease, unspecified
CPT/HCPCS: 49505; 49585; 96365; C1781; J0690; J2704; J3010; J3490; J7030; P9037

== ENCOUNTER 2021-05-28 13:08 | Outpatient (CLI) | payer MEDICARE, OTHER, SELFPAY ==
[2021-05-28 14:21] LABS: Basophils % 0.5 %; Eosinophils % 0.5 %; Hematocrit 30.9 % (42.0-52.0); Hemoglobin 10.1 g/dL (11.7-16.6); Lymphocytes # 0.2 10^3/uL (0.8-4.8); Mean Corpuscular HGB Conc 32.7 g/dL (30.0-36.0); Mean Corpuscular Hemoglobin 35.6 pg (28.0-34.0); Mean Corpuscular Volume 108.8 fl (80-94); Monocytes # 0.3 10^3/uL (0.2-0.9); Monocytes % 14.6 %; Neutrophils # 1.39 10^3/uL (1.8-7.7); Neutrophils % 72.4 %; Nucleated Red Blood Cells % 0 %; Red Blood Count 2.84 10^6/uL (4.1-5.3); Red Cell Distribution Width 24.4 % (12.1-15.1); White Blood Count 1.9 10^3/uL (4.0-10.0)
[2021-05-28 14:26] LABS: Platelet Count 27 10^3/cmm (130-400)
[2021-05-28 14:39] LABS: Alanine Aminotransferase < 5 U/L (0-41); Albumin Level 3.5 g/dL (3.5-5.2); Alkaline Phosphatase 74 IU/L (40-130); Anion Gap 13.7 (5-19); Aspartate Amino Transferase 17 U/L (0-40); Blood Urea Nitrogen 26 mg/dL (8-23); Carbon Dioxide 31 mmol/L (22-29); Chloride 100 mmol/L (98-107); Globulin 2.1 g/dL (1.3-4.6); Glucose 112 mg/dL (65-115); Osmolality Calculated 298 mOsm/kg (285-295); Potassium 3.7 mmol/L (3.5-5.1); Sodium 141 mmol/L (136-145); Total Bilirubin 0.7 mg/dL (0.15-1.2); Total Protein 5.6 g/dL (6.6-8.7)
== END 2021-05-28 13:09 | disposition home or self-care (01) ==
PROVIDERS: PCP Family Medicine; Visit Provider Internal Medicine Medical Oncology
DX: C90.02 Multiple myeloma in relapse (principal); N18.6 End stage renal disease; Z99.2 Dependence on renal dialysis
CPT/HCPCS: 36591; 80053; 85025

== ENCOUNTER 2021-06-12 09:58 | Outpatient (CLI) | payer MEDICARE, OTHER, SELFPAY ==
[2021-06-12 11:28] LABS: Basophils % 1.1 %; Eosinophils # 0.1 10^3/uL (0.0-0.8); Eosinophils % 3.8 %; Hematocrit 25.6 % (42.0-52.0); Hemoglobin 8.1 g/dL (11.7-16.6); Lymphocytes # 0.2 10^3/uL (0.8-4.8); Lymphocytes % 9.8 %; Mean Corpuscular HGB Conc 31.6 g/dL (30.0-36.0); Mean Corpuscular Hemoglobin 35.2 pg (28.0-34.0); Mean Corpuscular Volume 111.3 fl (80-94); Monocytes # 0.4 10^3/uL (0.2-0.9); Monocytes % 20.8 %; Neutrophils # 1.17 10^3/uL (1.8-7.7); Nucleated Red Blood Cells % 0 %; Platelet Count 41 10^3/cmm (130-400); Red Cell Distribution Width 23.4 % (12.1-15.1); White Blood Count 1.8 10^3/uL (4.0-10.0)
[2021-06-12 11:52] LABS: Alanine Aminotransferase 7 U/L (0-41); Albumin Level 3.1 g/dL (3.5-5.2); Alkaline Phosphatase 73 IU/L (40-130); Anion Gap 14.1 (5-19); Aspartate Amino Transferase 16 U/L (0-40); Blood Urea Nitrogen 27 mg/dL (8-23); Calcium 8.4 mg/dL (8.5-10.5); Carbon Dioxide 28 mmol/L (22-29); Chloride 100 mmol/L (98-107); Glucose 90 mg/dL (65-115); Osmolality Calculated 291 mOsm/kg (285-295); Potassium 4.1 mmol/L (3.5-5.1); Sodium 138 mmol/L (136-145); Total Bilirubin 0.6 mg/dL (0.15-1.2); Total Protein 5.1 g/dL (6.6-8.7)
[2021-06-12 11:54] LABS: Immunoglobulin IGA 129 mg/dL (70-400); Immunoglobulin IGG 478 mg/dL (700-1600); Immunoglobulin IGM 55 mg/dL (40-230)
[2021-06-13 09:17] LABS: PROTEIN, TOTAL 4.9 g/dL (6.1-8.1)
[2021-06-13 11:12] LABS: KAPPA LIGHT CHAIN, FREE, SERUM 83.7 mg/L (3.3-19.4); KAPPA/LAMBDA LIGHT CHAINS FREE 2.33 (0.26-1.65)
[2021-06-13 15:27] LABS: ABNORMAL PROTEIN BAND 1 0.1 g/dL (NONE DETECTED); ABNORMAL PROTEIN BAND 2 0.1 g/dL (NONE DETECTED); ALBUMIN 3.1 g/dL (3.8-4.8); ALPHA 1 GLOBULIN 0.3 g/dL (0.2-0.3); ALPHA 2 GLOBULIN 0.6 g/dL (0.5-0.9); BETA 1 GLOBULIN 0.2 g/dL (0.4-0.6); BETA 2 GLOBULIN 0.2 g/dL (0.2-0.5); GAMMA GLOBULIN 0.6 g/dL (0.8-1.7)
== END 2021-06-12 09:59 | disposition home or self-care (01) ==
PROVIDERS: Nurse Practitioner; PCP Family Medicine; Visit Provider Internal Medicine Medical Oncology
DX: C90.00 Multiple myeloma not having achieved remission (principal); D70.9 Neutropenia, unspecified; D69.6 Thrombocytopenia, unspecified; N18.5 Chronic kidney disease, stage 5; D63.1 Anemia in chronic kidney disease; I10 Essential (primary) hypertension; E78.5 Hyperlipidemia, unspecified; E11.42 Type 2 diabetes mellitus with diabetic polyneuropathy; E03.9 Hypothyroidism, unspecified; Z79.899 Other long term (current) drug therapy; Z99.2 Dependence on renal dialysis
CPT/HCPCS: 36591; 80053; 82784; 83883; 84155; 84165; 85025

== ENCOUNTER 2021-06-13 10:47 | Outpatient (CLI) | payer MEDICARE, OTHER, SELFPAY ==
[2021-06-13] MEDS: sodium chloride 0.9% 250 ML 999 ML IV (12:15)
[2021-06-13] MEDS: acetaminophen 325 mg Tablet 650 MG PO (12:15)
[2021-06-13] MEDS: diphenhydrAMINE 25 mg Capsule PO (12:15)
[2021-06-13 12:30] VITALS: BP 103/50; PULSE 105; RESP 18; TEMP 36.9; O2SAT 93
[2021-06-13 12:45] VITALS: BP 109/53; PULSE 65; RESP 18; TEMP 36.9; O2SAT 93
[2021-06-13 13:00] VITALS: BP 114/55; PULSE 98; RESP 18; TEMP 36.9; O2SAT 94
[2021-06-13 13:30] VITALS: BP 112/56; PULSE 96; RESP 18; TEMP 36.9; O2SAT 95
[2021-06-13 13:50] VITALS: BP 114/56; PULSE 96; RESP 18; TEMP 36.9; O2SAT 95
[2021-06-13] MEDS: FUROsemide 10 mg/mL SDV 2mL 20 MG IV (14:00)
== END 2021-06-13 10:48 | disposition home or self-care (01) ==
LOC: ONCMED 10:50
PROVIDERS: PCP Family Medicine; Visit Provider Internal Medicine Medical Oncology
DX: C90.02 Multiple myeloma in relapse (principal); N18.6 End stage renal disease; Z99.2 Dependence on renal dialysis; D63.1 Anemia in chronic kidney disease; I12.0 Hypertensive chronic kidney disease with stage 5 chronic kidney disease or end stage renal disease; Z79.899 Other long term (current) drug therapy
CPT/HCPCS: 36430; 86850; 86900; 86920; J1940; J7050; P9040

== ENCOUNTER 2021-06-19 06:40 | Outpatient (CLI) | payer MEDICARE, OTHER, SELFPAY ==
[2021-06-19 14:07] LABS: Eosinophils # 0.1 10^3/uL (0.0-0.8); Hematocrit 33.3 % (42.0-52.0); Hemoglobin 10.3 g/dL (11.7-16.6); Lymphocytes # 0.3 10^3/uL (0.8-4.8); Lymphocytes % 10.7 %; Mean Corpuscular HGB Conc 30.9 g/dL (30.0-36.0); Mean Corpuscular Hemoglobin 32.8 pg (28.0-34.0); Mean Corpuscular Volume 106.1 fl (80-94); Mean Platelet Volume 10.8 fL (7.4-10.4); Monocytes # 0.5 10^3/uL (0.2-0.9); Monocytes % 16.4 %; Neutrophils # 2.05 10^3/uL (1.8-7.7); Neutrophils % 68.9 %; Nucleated Red Blood Cells % 0 %; Platelet Count 50 10^3/cmm (130-400); Red Blood Count 3.14 10^6/uL (4.1-5.3)
== END 2021-06-19 06:41 | disposition home or self-care (01) ==
LOC: ONCMED 06:42
PROVIDERS: PCP Family Medicine; Visit Provider Internal Medicine Medical Oncology
DX: C90.02 Multiple myeloma in relapse (principal); N18.6 End stage renal disease; Z99.2 Dependence on renal dialysis; D63.1 Anemia in chronic kidney disease; I12.0 Hypertensive chronic kidney disease with stage 5 chronic kidney disease or end stage renal disease; Z79.899 Other long term (current) drug therapy
CPT/HCPCS: 36591; 85025; 86850; 86900

== ENCOUNTER 2021-06-20 09:18 | Outpatient (CLI) | payer MEDICARE, OTHER, SELFPAY ==
[2021-06-20] MEDS: famotidine 20 mg/2 mL INJ IVP (14:23)
[2021-06-20] MEDS: diphenhydrAMINE 50 mg/mL SDV 1mL 25 MG IV (14:25)
[2021-06-20] MEDS: palonosetron 0.25 mg/5 mL SDV IV (14:27)
[2021-06-20] MEDS: acetaminophen 325 mg Tablet 650 MG PO (14:33)
[2021-06-20] MEDS: pegfilgrastim 6 mg/0.6 mL Kit (onpro) SUBCUT (15:35)
--- NOTE | 2021-06-28 01:41 | ONC FU_ITS ---
[facility] Patient Note Patient: Larry Stephens Unit #: [id number]: [id number] Dictated By: Ann SheetsDate of Visit: Jun 20, 2021 Onc MED Follow-Up/Prog Note Chief Complaint: Multiple myeloma. History of Present Illness: Mr Stephens is a 75 year-old man with relapsed IgA kappa myeloma. He has associated end-stage renal disease and anemia. He had pre-existing hypertension, hyperlipidemia, and type II diabetes. He had developed stage III chronic kidney disease following a colonoscopy prep. He had been seeing Dr. Miguelangel Cha for his nephrology follow-up care, and he was then found to have evidence of IgA kappa monoclonal gammopathy in October 2010. He was initially seen here by Dr. Plasencia in September 2011. At that point his protein electrophoresis showed IgA kappa monoclonal protein quantitating at 1.3 g/dL with 0.2 g/dL of free kappa monoclonal protein. UPEP was reportedly unrevealing. Bone marrow aspiration/biopsy showed 12% plasma cells. 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 There was no evidence of lytic bone involvement. His baseline creatinine was 1.8 mg/dL. He was treated initially with 3 cycles of Velcade/dexamethasone between October and December 2011. He required a dose reduction in the Velcade due to neuropathy. His repeat bone marrow aspiration/biopsy at [facility] on 01/01/2012 showed increase in the plasma cells to 17%. He then continued treatment at [facility] with autologous peripheral stem cell transplant in January 2012, I assume with high-dose melphalan, though it is not stated in the available records. The procedure was complicated by sepsis and acute renal failure requiring hemodialysis. He had subsequent relapse of the myeloma. His further treatment included 10 cycles of carfilzomib and dexamethasone beginning in May 2015. It was changed to carfilzomib, Revlimid, and dexamethasone beginning in January 2016 due to disease progression. Following further disease progression, his treatment was transitioned to carfilzomib, pomalidomide, and dexamethasone. As of October 2016, due to progressive kidney disease concerning for progressive myeloma, his treatment was changed to daratumumab, Revlimid, and dexamethasone. The Revlimid and dexamethasone were subsequently omitted due to toxicities, and he then continued daratumumab as a single agent. It was administered on a monthly schedule. During this time his kidney function had progressed to end-stage renal disease, and he began on home peritoneal dialysis. He had been receiving treatment at [facility]. He was seen here in October 2017 because he desired to continue his further treatment locally. Following his initial visit he continued monthly daratumumab infusions with no apparent adverse effects and no obvious progression of the myeloma. His hemoglobin/hematocrit levels remained stable above transfusion thresholds. On 06/25/2018 he was seen in the emergency room with increasing weakness. On evaluation, he was found to have a low B12 level at 168 pg/mL, and his TSH level was found to be elevated at 13.500 mIU/mL. He started B12 injections, and he also started thyroid replacement. As of 07/22/2018 there was further decline in the hemoglobin to 8.6 g, and at that point he did start treatment with Procrit. He had a very good response with his hemoglobin increasing to 12.2 g after 2 weekly injections. As of October 2018 he had opted to be [facility] to [facility], and he then began hemodialysis. At that point his erythropoietin stimulating agent was changed to Mircera. He then became progressively more anemic. As of 12/02/2018 his hemoglobin had stabilized at 7.9 g. He then restarted Procrit on 12/17/2018. During this time, he also had continued his monthly daratumumab infusions. His anemia did improve after restarting the Procrit. During follow-up his clinical status had otherwise remained stable. His protein electrophoresis had continued to show a very small M protein spike. There had been no significant change in his serum free light chains. 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 He continued on his monthly daratumumab infusions. As of 12/09/2019 he received cycle 38 of daratumumab. He had been tolerating the treatment well and his clinical status had been stable. However, he had been showing a very gradual increase in his M protein, in the kappa free light chain, and in the kappa/lambda ratio. I had discussed options for further treatment, and we ultimately decided to just try adding back carfilzomib. He began cycle 1 of daratumumab in combination with carfilzomib and dexamethasone on 03/01/2020. He tolerated the day 1 and day 2 carfilzomib infusions without acute toxicity. He was then able to continue with his day 7/8 and day 15/16 carfilzomib infusions on schedule, but he was not able to tolerate any dose escalation due to moderately severe thrombocytopenia. He then continued monthly cycles of treatment with the carfilzomib dosage unchanged. He began cycle 6 on 08/02/2020. His repeat protein electrophoresis studies on 08/22/2020 showed further increase in his M protein to 2.0 g/dL compared to 1.2 g/dL on 02/22/2020. During that same time period his serum free light chain assay showed an increase in the kappa/lambda ratio from 10.52 to 60.22. With continued evidence of disease progression, the daratumumab/carfilzomib regimen was stopped. Dr Tran had seen him for a follow-up visit on 09/13/2020, at that time reviewed other treatment options. As he was not having any obvious symptoms associated with the myeloma, he preferred to just continue observation/expectant management. His medical illnesses, in addition to myeloma and renal failure, include hypertension, hyperlipidemia, type II diabetes with peripheral neuropathy, and benign prostatic hypertrophy. He is a nonsmoker. INTERIM HISTORY: As of his follow-up visit in October 2020 his repeat protein electrophoresis showed significant increase in his M protein to 3.0 g/dL. At that point he was still stable clinically and he preferred not to attempt any of the available salvage therapies due to concerns over their potential side effects. He had subsequently developed increased pain in his lower back and pelvic area. A CT of the lumbar spine on 10/03/2020 had shown evidence of acute compression fracture involving the superior endplate of the L2 vertebral body but with minimal loss of vertebral body height. There was annual bulging at L4-5 with moderate central canal stenosis and slight anterolisthesis. Further evaluation with CT of the pelvis on 10/23/2020 showed diffuse demineralization with vague lytic lesions throughout the pelvis and sacrum, suspicious for myeloma or possibly metastatic disease. There is no apparent fracture in the right hip but there was suspected pathologic fracture involving the right inferior pubic ramus with a lytic lesion measuring 2.1 x 1.8 cm. He had radiation oncology consultation with Dr. Delgado on 11/01/2020, and he was given palliative radiation to the right hip area. His clinical course was complicated by significant [employer] toxicity associated with opiate pain medication. He was able to complete his radiation on 11/07/2020 to a total dose of 800 cGy administered in a single fraction. He had a follow-up visit with Dr. Goncalves on 11/27/2020. At that time his right hip pain had improved, but he was reporting severe pain in the low back area. In the absence of any known lytic disease in that area, he was referred to pain management. He subsequently was given a lumbar medial branch block and cervical/thoracic medial branch block on 12/12/2020. In the meantime, we were able to get him approved for a trial of salvage therapy with melphalan flufenamide. He began cycle 1 on 11/29/2020. It was administered at reduced dosage because of his low baseline platelet count. During subsequent follow-up there was a significant further decline in the platelet count, to as low as 16,000, but he did not have any bleeding complications. He had gradual recovery. He continued with cycle 2 on 01/24/2021. At that point he was still having significant back pain, and his repeat MRI of the lumbar spine at that time showed multiple new compression fractures involving L3, L4, and L5 vertebral bodies. There was also new anterior wedging at T11 and T12. Jacki while you were thinking later by his follow-up serum protein electrophoresis on 02/21/2021 showed a significant decline in the M protein, to 0.1 g/dL. There was a moderate central canal stenosis noted at L4-5. MRI of the pelvis on 02/01/2021 showed innumerable enhancing myelomatous lesions throughout the lower thoracic spine, pelvis, sacrum, and proximal femurs. MRI of the thoracic spine on 02/13/2021 again showed diffuse heterogeneous enhancing myelomatous lesions throughout the thoracic spine. There were some small disc protrusions. There was no high-grade central canal stenosis. With those findings he was given additional palliative radiation from T12-S1, completed 02/07/2021 to a total dose of 1500 cGy administered in 5 fractions. As of his follow-up visit on 03/21/2021 he continued to have mild to moderately severe neutropenia and thrombocytopenia, but he had shown some recovery, and he continued with cycle 3 of melphalan flufenamide. His repeat protein electrophoresis showed stable M protein of 0.2 g/dL. On 04/20/2021 he underwent bilateral L4/5 laminectomy with partial facetectomies. He was given a platelet pheresis prophylactically, and he tolerated the procedure well. He has continued with Melphalan flufentamide when his blood counts have allowed. His cycle 4 was given on May 02, 2021. During the interim his platelet count had nadired at 8000 on May 15, 2021 and has gradually recovered to 50,000 today. His neutrophils nadired at 220 on May 08, 2021 and remained low but have recovered to 2000 today. Reviewing his myeloma labs as of November 27, 2020 (he began his first cycle of the melphalan flufenamide on 11/28/2020). His kappa free light chain at that time was 237.9 lambda free light chain was 8.7 and the kappa lambda ratio was 27.34. His next cycle was not given until January 24, 2021 and cycle 3 was on 03/21/2021. His kappa free light chain on February 21, 2021 was 32.4 lambda free light chain was 14.9 and the ratio was 2.17. His kappa free light chain on 03/21/2020 was 28.7, the lambda free light chain was 12.7 and the ratio was 2.26. He received cycle 4 on May 02, 2021. And had repeat myeloma labs on 06/12/2021 at which time the kappa free light chain was 83.7 lambda free light chain was 36.0 and the kappa lambda free ratio was 2.33. His SPEP has shown abnormal protein at 3.0 on 329 but since then has read 0.1 and 0.2 with 2 abnormal proteins detected on his last SPEP on 06/12/2021 the level of each of those was reported at 0.1. Mr. Stephens reports that he is tolerating his treatment well. He has no new concerns. He states he feels good overall. He continues to live in the assisted living facility but can help provide some care of his own. He continues to have dialysis 3 days a week. He denies any fever or chills. He denies any new shortness of breath orthopnea. He denies any diarrhea. He denies any worsening of neuropathy symptoms. His ECOG remains at 2. Past Medical History: Benign prostatic hypertrophy End stage renal disease on home peritoneal dialysis Hyperlipidemia Hypertension Multiple myeloma Type II diabetes with peripheral neuropathy Past Surgical History: Colonoscopy Placement of peritoneal diaysis catheter Placement of portacath venous access device Bilateral L4/5 laminectomy in 2020 Covid vaccine #2 in 2020 Covid vaccine #1 in 2020 Fistula in left arm in 2018 Prevnar 13 in 2017 Cataract excision in 2015 Right inguinal hernia repair in 2007 Cholecystectomy in 1983 Allergies: Bactrim, Codeine Sulfate, Sulfa Antibiotics, TraMADol HCl, and Verapamil HCl. Medications: Acetaminophen 2 Tablet (of 325 mg) Oral four times a day PRN Acyclovir 1 Tablet (of 400 mg) Oral daily Albuterol Sulfate 1 Vial(s) (of (2.5 mg/3ml) 0.083%) Nebulization solution Inhalation t.i.d. PRN Albuterol Sulfate 1 Inhalation (of 108 (90 base) mcg/act) Aerosol Powder, Breath Activated Inhalation q 4 hours Allopurinol 1 Tablet (of 100 mg) Oral daily ALPRAZolam 1 Tablet (of 0.25 mg) Oral at bedtime amLODIPine Besylate 1 Tablet (of 2.5 mg) Oral daily Bisacodyl EC 2 Tablet (of 5 mg) Tablet, enteric coated Oral daily PRN Calcium Acetate 1 Capsule (of 667 mg) Oral t.i.d. Cipro 1 Tablet (of 500 mg) Oral b.i.d. Fluconazole 1 Tablet (of 100 mg) Oral daily Furosemide 1 Tablet (of 80 mg) Oral daily Gentamicin Sulfate 1 (0.1 %) Cream Topical at bedtime HYDROmorphone HCl 1 (2 mg) Tablet Oral four times a day PRN Levothyroxine Sodium 1 Tablet (of 50 mcg) Oral daily Loperamide HCl 1 - 2 Tablet (of 2 mg) Oral PRN Lovastatin 1 (40 mg) Tablet Oral at bedtime Metoprolol Succinate ER (25 mg) Tablet SR 24 HR Oral daily Mucinex 1 Tablet (of 600 mg) Tablet SR 12 HR Oral b.i.d. PRN Prochlorperazine Maleate 1 Tablet (of 10 mg) Oral q 6 hours PRN Renvela 3 (800 mg) Tablet Oral daily Requip 1 Tablet (of 0.5 mg) Oral b.i.d. Tamsulosin HCl 1 Tablet (of 0.4 mg) Capsule Oral b.i.d. Vital-D Rx 1 Tablet (of 1 mg) Oral daily Family History: Mr. Stephens's mother at age 82: Breast Cancer at age 70. Mr. Stephens's father at age 40. Mr. Stephens's maternal grandmother at age 80: cancer history consists of Breast cancer at age 80 (cause of ). Father at age 40, cause unknown to the patient. Mother of breast cancer at age 82. His maternal grandmother also had breast cancer. Social History: Mr. Stephens is and he is retired. Mr. Stephens has never smoked. He has no history of drinking. He is a nonsmoker. He does not drink alcohol. Review Of Symptoms: <See Above> Vital Signs: Performed on Jun 20, 2021 13:34 Height - 69.00 in Weight - 142.4 lbs (LOW) BSA - 1.79 sq.m BMI - 21.03 Temperature - 98.3 F (LOW) Pulse - 75 /min Respiration - 18 /min BP - 128/66 mm(hg) O2 Sat - 98 % Pain - 9 Fatigue - 9,2 - Ambulatory/capable of all self-care, unable to perform any work activities. Up and about more than 50% of waking hours. (ECOG) Physical Examination: Constitutional Alert, oriented, no acute distress. Skin pink, warm and dry. Head Normocephalic; atraumatic. Eyes Conjunctivae and sclerae are clear and without icterus. ENMT No oral exudates, ulcers, masses, thrush or mucositis. Oropharynx clear. Tongue normal. Neck Supple without masses or thyromegaly. No jugular venous distension. Hematologic/Lymphatic No petechiae or purpura. Some bruising on hands-chronic Respiratory Lungs are clear to auscultation without rhonchi or wheezing. Cardiovascular Regular rate and rhythm of heart without murmurs,clicks, gallops or rubs. Abdomen Non-tender, non-distended, no masses, Back/Spine Non-tender to palpation. Extremities No visible deformities, no cyanosis, clubbing or edema. Left arm fistula is unremarkable-no active bleeding and no significant bruising. Musculoskeletal No tenderness or swelling, normal range of motion without obvious weakness. Integumentary No rashes or lesions. Extensive ecchymosis on both arms which is not new. Neurologic No sensory or motor deficits, normal cerebellar function. Assisted gait with wheeled walker Psychiatric Alert and oriented times three. Coherent speech. Verbalizes understanding of our discussions today. Laboratory:Test performed on Jun 19, 2021 13:45 WBC 3.0 10 3/uL RBC 3.14 10 6/uL HGB 10.3 g/dL HCT 33.3 % MCV 106.1 fl MCH 32.8 pg MCHC 30.9 g/dL RDW 26.0 % Platelet Count 50 10 3/cmm MPV 10.8 fL Neutrophils 2.05 10 3/uL Lymphocytes 0.3 10 3/uL Monocytes 0.5 10 3/uL Eosinophils 0.1 10 3/uL Basophils 0.0 10 3/uL Neutrophil % 68.9 % Lymphocyte % 10.7 % Monocyte % 16.4 % Eosinophil % 3.0 % Basophils % 1.0 % NRBC % 0 % Anti-D Positive Blood Type OP Antibody Screen (Gel) NEGATIVE Test performed on Jun 12, 2021 11:00 IGG 478 mg/dL IGM 55 mg/dL IgA 129 mg/dL [place] Free Light Chains 83.7 mg/L Lambda Free Light Chains 36.0 mg/L [place]/Lambda Free Ratio 2.33 Test performed on May 28, 2021 13:30 Sodium 141 mmol/L Potassium 3.7 mmol/L Chloride 100 mmol/L CO2 31 mmol/L Anion Gap 13.7 BUN 26 mg/dL Creatinine 3.0 mg/dL Cr Clearance (Est) 20.4600 mL/min Glucose 112 mg/dL Osmolality - Calculated 298 mOsm/kg Calcium 8.0 mg/dL Protein, Total 5.6 g/dL Albumin 3.5 g/dL Globulin 2.1 g/dL Bilirubin, Total 0.7 mg/dL ALT (SGPT) < 5 U/L AST (SGOT) 17 U/L Alkaline Phosphatase 74 IU/L Test performed on May 22, 2021 10:45 Irradiated Leuko Red RBC [id number] OP RCLRI ISSUED 05/23/21 1046 CBC Slide Review Slide Review Perform SLIDE REVIEWED AGREES WITH THE AUTO RESULT PLT Pheresis Irrad Leukoreduce [id number] OP IRPLT TRANSFUSED 05/23/21 1046 Test performed on Feb 13, 2021 09:17 Manual Diff Cancelled via OM: Entered in error Test performed on Feb 13, 2021 05:35 Manual Lymphocytes 15.2 % Manual Monocytes 21.5 % Manual Eosinophils 3.2 % Manual Basophils 0.6 % Impression: 1. IgA kappa myeloma, initially diagnosed in September 2011. 2. During follow-up he had progression to end-stage renal disease. He initially had started daily home peritoneal dialysis, but with subsequent transition to hemodialysis. 3. Anemia associated with end-stage renal disease. 4. Hypertension. 5. Hyperlipidemia. 6. Type II diabetes with peripheral neuropathy. 7. Benign prostatic hypertrophy. 8. Hypothyroidism. Plan/Problems Addressed at this Visit: 1. Patient with IgA kappa myeloma, initially diagnosed in September 2011. His myeloma therapy included: 1. Velcade/dexamethasone for 3 cycles, completed December 2011. 2. High-dose melphalan/stem cell transplant in January 2012, complicated by sepsis and acute renal failure requiring hemodialysis. 3. Carfilzomib/dexamethasone for 10 cycles, completed May 2015. 4. Carfilzomib/Revlimid/dexamethasone beginning in January 2016. 5. Carfilzomib/pomalidomide/dexamethasone. 6. Daratumumab/Revlimid/dexamethasone beginning in October 2016. 7. Daratumumab monotherapy until January 2020. 8. Carfilzomib/daratumumab/dexamethasone from 03/01/2020 through 08/31/2020. 9. Melphalan flufentamide 11/28/2020-current (cycles have not been maintained at 28 day intervals due to low blood counts (neutropenia.thrombocytopenia). He has completed 4 cycles as of 06/20/2021. He had been showing gradual disease progression since September 2019, but has a October 2020 there was a more significant increase in his M protein level, to 3.0 g/dL. He was initially not overtly symptomatic, but he subsequently developed symptomatic bone involvement in the pelvis. He had associated pathologic fracture. He was given palliative radiation to the right hip area, completed on 11/07/2020 to a total dose of 800 cGy administered in a single fraction. In the meantime, we were able to get approval for a trial of salvage therapy with melphalan flufenamide. He began cycle 1 on 11/29/2020. It was administered at a reduced dosage due to baseline thrombocytopenia. During followup his platelet count nadired at 16,000. He had no bleeding. His dory granulocyte count was 600. He had gradual recovery. He continued with cycle 2 on 01/24/2021. The treatment was again complicated by severe neutropenia and thrombocytopenia, requiring growth factor support with Neupogen and platelet pheresis. During subsequent follow-up he did show some recovery of his blood counts. He was able to continue with cycle 3 of melphalan flufenamide on 03/21/2021. At that point he continued to show significant response by protein electrophoresis, with his M protein stable at 0.2 g/dL. He has since then continued to have moderately severe neutropenia, moderate to severe thrombocytopenia, and transfusion dependent anemia. He has had some recovery, though, and he continued with cycle 4 of melphalan flufenamide on 05/02/2021. The dosage remained the same but Dr Pinto add Neulasta prophylactically. Blood counts will be monitored weekly. A. Proceed with cycle 5 melphalan flufenamide 20 mg. B. Supportive care as needed. C. Labs from June 19, 2021 were reviewed in detail discussed with Mr. Stephens and a copy was given to him. WBC 3.0, hemoglobin 10.1, platelets 50,000, ANC is 2050. Potassium 4.1 creatinine is irrelevant due to hemo-dialysis 3 times weekly, it was reported at 4.5 today. His calcium is 8.4 LFTs are normal. His IgA was 129 IgG was 478 and IgM was 55. His kappa free light chain today was 83.7 lambda free light chain 36.0 and ratio was 2.33. D. He will have weekly interim labs and we will plan to see him back in 1 month with CBC CMP and myeloma studies to include SPEP with MEGHAN, QUIGS and serum free light chain assay. E. Mr. Stephens was instructed to contact us in interim should questions or problems arise. 2. He has significant pain in his lower back. Management has been problematic due to very poor tolerance for opiate pain medication. His previous CT of the lumbar spine did show no obvious lytic lesions, but there were vertebral compression fractures. He ultimately did receive palliative radiation to the lumbar spine, completed on 02/07/2021. He underwent bilateral L4/5 laminectomy on 04/20/2021. At this point he is still having some back pain, but he has been able to reduce his opiate requirement and he has been able to increase his activity. He will continue to take hydromorphone as needed. Signed By: Ann Sheets-, AOCNP Dustin Pinto MD <<Signature on File>>
--- NOTE | 2021-06-28 01:46 | ONC FU_ITS ---
[facility] Patient Note Patient: Larry Stephens Unit #: [id number]: [id number] Dictated By: Ann SheetsDate of Visit: Jun 26, 2021 Onc MED Telephone Note I spoke with Mr. Stephens today regarding information we received saying that melphalan flufenamide is being taken off the market due to lack of overall survival and hazard ratio of 1.10. However we had received information pharmaceutical references that if he is responding he may be able to continue it as long as the drug is available. I discussed these options with Dr. Pinto and as long as he is showing tolerance and some response/benefit from the melphalan flufenamide we will plan to keep him on it the other options would be observation; consideration of [place] and investigation to see if he would possibly qualify for CAR-T therapy which require him traveling to [place] which he states is not possible at this time. Mr. Stephens is agreeable to continue with the melphalan flufentamide as long as it is available as he thinks he is tolerating it well. He is aware that our treatment options are limited but states that he knows the new stuff comes out all the time so we will be watching for that as well. He has no further questions. We will plan to see him back as scheduled. We did review his lab results from June 26, 2021 as well. His WBC was 2.7, hemoglobin 10.1 and platelets were 35,000. His ANC was 2400. We will plan to check his labs next week and see him back as scheduled in 3 weeks with CBC CMP and his myeloma labs. Mr. Stephens was instructed to contact us in interim should questions or problems arise. Signed By: DAVEY Sheets AOCNP <<Signature on File>>
== END 2021-06-20 09:19 | disposition home or self-care (01) ==
LOC: ONCMED 09:20
PROVIDERS: PCP Family Medicine; Visit Provider Nurse Practitioner
DX: C90.02 Multiple myeloma in relapse (principal); D47.2 Monoclonal gammopathy; N18.6 End stage renal disease; Z99.2 Dependence on renal dialysis; D63.1 Anemia in chronic kidney disease; I12.0 Hypertensive chronic kidney disease with stage 5 chronic kidney disease or end stage renal disease; Z79.899 Other long term (current) drug therapy
CPT/HCPCS: 96375; 96377; 96413; 99214; J1200; J2469; J2505; J3490; J7050; J9247

== ENCOUNTER 2021-06-26 06:44 | Outpatient (CLI) | payer MEDICARE, OTHER, SELFPAY ==
[2021-06-26 13:59] LABS: Hematocrit 31.8 % (42.0-52.0); Hemoglobin 10.1 g/dL (11.7-16.6); Mean Corpuscular HGB Conc 31.8 g/dL (30.0-36.0); Mean Corpuscular Volume 107.1 fl (80-94); Mean Platelet Volume 10.5 fL (7.4-10.4); Platelet Count 35 10^3/cmm (130-400); Red Blood Count 2.97 10^6/uL (4.1-5.3); White Blood Count 2.7 10^3/uL (4.0-10.0)
[2021-06-26 14:57] LABS: Absolute Segmented Neutrophil 2.1 10/cmm (1.6-7.1); Band Neutrophils Absolute 0.3 10^3/cmm (0.0-1.2); Eosinophils 2 %; Lymphocytes 8 %; Segmented Neutrophils 77 %; Total Cells Counted 100 (0-100)
[2021-06-26 14:58] LABS: Absolute Neutrophil 2.4 10^3/cmm (1.4-6.5); Platelet Estimate Decreased (Normal)
[2021-06-26 14:59] LABS: Hypochromasia S
[2021-06-26 15:00] LABS: Anisocytosis 2+; Macrocytosis 1+
[2021-06-26 15:01] LABS: Ovalocytes Trace; Tear Drop Cells Trace
== END 2021-06-26 06:45 | disposition home or self-care (01) ==
LOC: ONCMED 06:45
PROVIDERS: PCP Family Medicine; Visit Provider Internal Medicine Medical Oncology
DX: C90.02 Multiple myeloma in relapse (principal); D47.2 Monoclonal gammopathy; N18.6 End stage renal disease; Z99.2 Dependence on renal dialysis; D63.1 Anemia in chronic kidney disease; I12.0 Hypertensive chronic kidney disease with stage 5 chronic kidney disease or end stage renal disease
CPT/HCPCS: 36591; 85007; 85025; 86850; 86900

== ENCOUNTER 2021-07-03 06:40 | Outpatient (CLI) | payer MEDICARE, OTHER, SELFPAY ==
[2021-07-03 15:24] LABS: Eosinophils % 6.1 %; Hematocrit 29.7 % (42.0-52.0); Hemoglobin 9.5 g/dL (11.7-16.6); Lymphocytes # 0.2 10^3/uL (0.8-4.8); Lymphocytes % 27.3 %; Mean Corpuscular Hemoglobin 34.5 pg (28.0-34.0); Monocytes # 0.2 10^3/uL (0.2-0.9); Monocytes % 31.8 %; Neutrophils % 34.8 %; Nucleated Red Blood Cells % 0 %; Red Blood Count 2.75 10^6/uL (4.1-5.3); Red Cell Distribution Width 24.1 % (12.1-15.1)
[2021-07-03 15:51] LABS: Alanine Aminotransferase 23 U/L (0-41); Albumin Level 3.5 g/dL (3.5-5.2); Alkaline Phosphatase 80 IU/L (40-130); Anion Gap 12.3 (5-19); Aspartate Amino Transferase 21 U/L (0-40); Blood Urea Nitrogen 36 mg/dL (8-23); Calcium 8.4 mg/dL (8.5-10.5); Carbon Dioxide 31 mmol/L (22-29); Chloride 101 mmol/L (98-107); Globulin 1.5 g/dL (1.3-4.6); Glucose 100 mg/dL (65-115); Immunoglobulin IGA 134 mg/dL (70-400); Immunoglobulin IGG 530 mg/dL (700-1600); Immunoglobulin IGM 41 mg/dL (40-230); Osmolality Calculated 298 mOsm/kg (285-295); Potassium 4.3 mmol/L (3.5-5.1); Sodium 140 mmol/L (136-145); Total Bilirubin 0.5 mg/dL (0.15-1.2)
[2021-07-03 16:56] LABS: Slide Review Slide Review Perform
[2021-07-03 17:00] LABS: Platelet Count 11 10^3/cmm (130-400); White Blood Count 0.7 10^3/uL (4.0-10.0)
[2021-07-03 17:01] LABS: Neutrophils # 0.23 10^3/uL (1.8-7.7)
[2021-07-04 11:58] LABS: PROTEIN, TOTAL 5.1 g/dL (6.1-8.1)
[2021-07-04 12:22] LABS: KAPPA LIGHT CHAIN, FREE, SERUM 38.4 mg/L (3.3-19.4); KAPPA/LAMBDA LIGHT CHAINS FREE 2.09 (0.26-1.65); LAMBDA LIGHT CHAIN, FREE, SERU 18.4 mg/L (5.7-26.3)
[2021-07-04 16:08] LABS: ABNORMAL PROTEIN BAND 1 0.1 g/dL (NONE DETECTED); ALBUMIN 3.4 g/dL (3.8-4.8); ALPHA 1 GLOBULIN 0.3 g/dL (0.2-0.3); ALPHA 2 GLOBULIN 0.5 g/dL (0.5-0.9); BETA 1 GLOBULIN 0.2 g/dL (0.4-0.6); BETA 2 GLOBULIN 0.1 g/dL (0.2-0.5); GAMMA GLOBULIN 0.6 g/dL (0.8-1.7)
== END 2021-07-03 06:41 | disposition home or self-care (01) ==
LOC: ONCMED 06:41
PROVIDERS: PCP Family Medicine; Visit Provider Nurse Practitioner
DX: C90.02 Multiple myeloma in relapse (principal); D47.2 Monoclonal gammopathy
CPT/HCPCS: 36591; 80053; 82784; 83883; 84155; 84165; 85025

== ENCOUNTER 2021-07-09 12:34 | Outpatient (CLI) | payer MEDICARE, OTHER, SELFPAY ==
[2021-07-09 13:26] LABS: Basophils % 0.5 %; Eosinophils % 1.9 %; Hemoglobin 9.1 g/dL (11.7-16.6); Lymphocytes # 0.2 10^3/uL (0.8-4.8); Lymphocytes % 11.1 %; Mean Corpuscular HGB Conc 32.5 g/dL (30.0-36.0); Mean Corpuscular Hemoglobin 34.9 pg (28.0-34.0); Mean Corpuscular Volume 107.3 fl (80-94); Monocytes # 0.3 10^3/uL (0.2-0.9); Monocytes % 12.5 %; Neutrophils # 1.59 10^3/uL (1.8-7.7); Neutrophils % 73.5 %; Nucleated Red Blood Cells % 0 %; Red Blood Count 2.61 10^6/uL (4.1-5.3); Red Cell Distribution Width 24.6 % (12.1-15.1); White Blood Count 2.2 10^3/uL (4.0-10.0)
[2021-07-09 13:32] LABS: Platelet Count 6 10^3/cmm (130-400)
== END 2021-07-09 12:35 | disposition home or self-care (01) ==
LOC: ONCMED 12:36
PROVIDERS: PCP Family Medicine; Visit Provider Internal Medicine Medical Oncology
DX: C90.02 Multiple myeloma in relapse (principal); D47.2 Monoclonal gammopathy; N18.6 End stage renal disease; Z99.2 Dependence on renal dialysis; I12.0 Hypertensive chronic kidney disease with stage 5 chronic kidney disease or end stage renal disease; D63.1 Anemia in chronic kidney disease
CPT/HCPCS: 36591; 85025; 86900

== ENCOUNTER 2021-07-10 08:52 | Outpatient (CLI) | payer MEDICARE, OTHER, SELFPAY ==
[2021-07-10] MEDS: acetaminophen 500 mg Tablet PO (13:35)
[2021-07-10] MEDS: diphenhydrAMINE 25 mg Capsule PO (13:45)
== END 2021-07-10 08:53 | disposition home or self-care (01) ==
LOC: ONCMED 08:56
PROVIDERS: PCP Family Medicine; Visit Provider Internal Medicine Medical Oncology
DX: C90.02 Multiple myeloma in relapse (principal); N18.6 End stage renal disease; Z99.2 Dependence on renal dialysis; D47.2 Monoclonal gammopathy; D63.1 Anemia in chronic kidney disease; I12.0 Hypertensive chronic kidney disease with stage 5 chronic kidney disease or end stage renal disease; Z79.899 Other long term (current) drug therapy
CPT/HCPCS: 86900; P9040

== ENCOUNTER 2021-07-13 06:28 | Outpatient (CLI) | payer MEDICARE, OTHER, SELFPAY ==
[2021-07-13 12:34] LABS: Basophils % 0.7 %; Eosinophils % 2.2 %; Hematocrit 27.3 % (42.0-52.0); Lymphocytes # 0.2 10^3/uL (0.8-4.8); Lymphocytes % 14.7 %; Mean Corpuscular Hemoglobin 36.1 pg (28.0-34.0); Mean Corpuscular Volume 109.6 fl (80-94); Monocytes # 0.2 10^3/uL (0.2-0.9); Monocytes % 17.6 %; Neutrophils % 64.8 %; Nucleated Red Blood Cells % 0 %; Red Blood Count 2.49 10^6/uL (4.1-5.3); Red Cell Distribution Width 25.3 % (12.1-15.1); White Blood Count 1.4 10^3/uL (4.0-10.0)
[2021-07-13 13:20] LABS: Neutrophils # 0.88 10^3/uL (1.8-7.7); Platelet Count 18 10^3/cmm (130-400)
== END 2021-07-13 06:29 | disposition home or self-care (01) ==
LOC: ONCMED 06:28
PROVIDERS: PCP Family Medicine; Visit Provider Nurse Practitioner
DX: C90.02 Multiple myeloma in relapse (principal); N18.6 End stage renal disease; Z99.2 Dependence on renal dialysis; D63.1 Anemia in chronic kidney disease; I12.0 Hypertensive chronic kidney disease with stage 5 chronic kidney disease or end stage renal disease; Z79.899 Other long term (current) drug therapy
CPT/HCPCS: 36591; 85025

== ENCOUNTER 2021-07-16 06:49 | Outpatient (CLI) | payer MEDICARE, OTHER, SELFPAY ==
[2021-07-16 13:59] LABS: Basophils % 0.7 %; Eosinophils % 2.2 %; Hematocrit 26.6 % (42.0-52.0); Hemoglobin 8.7 g/dL (11.7-16.6); Lymphocytes # 0.2 10^3/uL (0.8-4.8); Lymphocytes % 11.6 %; Mean Corpuscular HGB Conc 32.7 g/dL (30.0-36.0); Mean Corpuscular Volume 109.9 fl (80-94); Monocytes # 0.3 10^3/uL (0.2-0.9); Monocytes % 19.6 %; Neutrophils % 65.9 %; Nucleated Red Blood Cells % 0 %; Red Blood Count 2.42 10^6/uL (4.1-5.3); Red Cell Distribution Width 25.9 % (12.1-15.1); White Blood Count 1.4 10^3/uL (4.0-10.0)
[2021-07-16 15:57] LABS: Neutrophils # 0.91 10^3/uL (1.8-7.7); Platelet Count 17 10^3/cmm (130-400)
== END 2021-07-16 06:50 | disposition home or self-care (01) ==
LOC: ONCMED 06:50
PROVIDERS: PCP Family Medicine; Visit Provider Nurse Practitioner
DX: C90.02 Multiple myeloma in relapse (principal); N18.6 End stage renal disease; Z99.2 Dependence on renal dialysis; D63.1 Anemia in chronic kidney disease; I12.0 Hypertensive chronic kidney disease with stage 5 chronic kidney disease or end stage renal disease; Z79.899 Other long term (current) drug therapy
CPT/HCPCS: 36591; 85025

== ENCOUNTER 2021-07-18 05:53 | Outpatient (CLI) | payer MEDICARE, OTHER, SELFPAY ==
--- NOTE | 2021-07-31 00:16 | ONC FU_ITS ---
[facility] Patient Note Patient: Larry Stephens Unit #: [id number]: 1945 Dictated By: Ann SheetsDate of Visit: Jul 18, 2021 Onc MED Follow-Up/Prog Note Chief Complaint: Multiple myeloma. History of Present Illness: Mr Stephens is a 75 year-old man with relapsed IgA kappa myeloma. He has associated end-stage renal disease and anemia. He had pre-existing hypertension, hyperlipidemia, and type II diabetes. He had developed stage III chronic kidney disease following a colonoscopy prep. He had been seeing Dr. Miguelangel Cha for his nephrology follow-up care, and he was then found to have evidence of IgA kappa monoclonal gammopathy in October 2010. He was initially seen here by Dr. Plasencia in September 2011. At that point his protein electrophoresis showed IgA kappa monoclonal protein quantitating at 1.3 g/dL with 0.2 g/dL of free kappa monoclonal protein. UPEP was reportedly unrevealing. Bone marrow aspiration/biopsy showed 12% plasma cells. 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 There was no evidence of lytic bone involvement. His baseline creatinine was 1.8 mg/dL. He was treated initially with 3 cycles of Velcade/dexamethasone between October and December 2011. He required a dose reduction in the Velcade due to neuropathy. His repeat bone marrow aspiration/biopsy at [facility] on 01/01/2012 showed increase in the plasma cells to 17%. He then continued treatment at [facility] with autologous peripheral stem cell transplant in January 2012, I assume with high-dose melphalan, though it is not stated in the available records. The procedure was complicated by sepsis and acute renal failure requiring hemodialysis. He had subsequent relapse of the myeloma. His further treatment included 10 cycles of carfilzomib and dexamethasone beginning in May 2015. It was changed to carfilzomib, Revlimid, and dexamethasone beginning in January 2016 due to disease progression. Following further disease progression, his treatment was transitioned to carfilzomib, pomalidomide, and dexamethasone. As of October 2016, due to progressive kidney disease concerning for progressive myeloma, his treatment was changed to daratumumab, Revlimid, and dexamethasone. The Revlimid and dexamethasone were subsequently omitted due to toxicities, and he then continued daratumumab as a single agent. It was administered on a monthly schedule. During this time his kidney function had progressed to end-stage renal disease, and he began on home peritoneal dialysis. He had been receiving treatment at [facility]. He was seen here in October 2017 because he desired to continue his further treatment locally. Following his initial visit he continued monthly daratumumab infusions with no apparent adverse effects and no obvious progression of the myeloma. His hemoglobin/hematocrit levels remained stable above transfusion thresholds. On 06/25/2018 he was seen in the emergency room with increasing weakness. On evaluation, he was found to have a low B12 level at 168 pg/mL, and his TSH level was found to be elevated at 13.500 mIU/mL. He started B12 injections, and he also started thyroid replacement. As of 07/22/2018 there was further decline in the hemoglobin to 8.6 g, and at that point he did start treatment with Procrit. He had a very good response with his hemoglobin increasing to 12.2 g after 2 weekly injections. As of October 2018 he had opted to be admitted to the senior living, and he then began hemodialysis. At that point his erythropoietin stimulating agent was changed to Mircera. He then became progressively more anemic. As of 12/02/2018 his hemoglobin had stabilized at 7.9 g. He then restarted Procrit on 12/17/2018. During this time, he also had continued his monthly daratumumab infusions. His anemia did improve after restarting the Procrit. During follow-up his clinical status had otherwise remained stable. His protein electrophoresis had continued to show a very small M protein spike. There had been no significant change in his serum free light chains. 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 He continued on his monthly daratumumab infusions. As of 12/09/2019 he received cycle 38 of daratumumab. He had been tolerating the treatment well and his clinical status had been stable. However, he had been showing a very gradual increase in his M protein, in the kappa free light chain, and in the kappa/lambda ratio. Dr Pinto had discussed options for further treatment, and we ultimately decided to just try adding back carfilzomib. He began cycle 1 of daratumumab in combination with carfilzomib and dexamethasone on 03/01/2020. He tolerated the day 1 and day 2 carfilzomib infusions without acute toxicity. He was then able to continue with his day 7/8 and day 15/16 carfilzomib infusions on schedule, but he was not able to tolerate any dose escalation due to moderately severe thrombocytopenia. He then continued monthly cycles of treatment with the carfilzomib dosage unchanged. He began cycle 6 on 08/02/2020. His repeat protein electrophoresis studies on 08/22/2020 showed further increase in his M protein to 2.0 g/dL compared to 1.2 g/dL on 02/22/2020. During that same time period his serum free light chain assay showed an increase in the kappa/lambda ratio from 10.52 to 60.22. With continued evidence of disease progression, the daratumumab/carfilzomib regimen was stopped. Dr Tran had seen him for a follow-up visit on 09/13/2020, at that time reviewed other treatment options. As he was not having any obvious symptoms associated with the myeloma, he preferred to just continue observation/expectant management. His medical illnesses, in addition to myeloma and renal failure, include hypertension, hyperlipidemia, type II diabetes with peripheral neuropathy, and benign prostatic hypertrophy. He is a nonsmoker. INTERIM HISTORY: As of his follow-up visit in October 2020 his repeat protein electrophoresis showed significant increase in his M protein to 3.0 g/dL. At that point he was still stable clinically and he preferred not to attempt any of the available salvage therapies due to concerns over their potential side effects. He had subsequently developed increased pain in his lower back and pelvic area. A CT of the lumbar spine on 10/03/2020 had shown evidence of acute compression fracture involving the superior endplate of the L2 vertebral body but with minimal loss of vertebral body height. There was annual bulging at L4-5 with moderate central canal stenosis and slight anterolisthesis. Further evaluation with CT of the pelvis on 10/23/2020 showed diffuse demineralization with vague lytic lesions throughout the pelvis and sacrum, suspicious for myeloma or possibly metastatic disease. There is no apparent fracture in the right hip but there was suspected pathologic fracture involving the right inferior pubic ramus with a lytic lesion measuring 2.1 x 1.8 cm. He had radiation oncology consultation with Dr. Delgado on 11/01/2020, and he was given palliative radiation to the right hip area. His clinical course was complicated by significant [employer] toxicity associated with opiate pain medication. He was able to complete his radiation on 11/07/2020 to a total dose of 800 cGy administered in a single fraction. He had a follow-up visit with Dr. Goncalves on 11/27/2020. At that time his right hip pain had improved, but he was reporting severe pain in the low back area. In the absence of any known lytic disease in that area, he was referred to pain management. He subsequently was given a lumbar medial branch block and cervical/thoracic medial branch block on 12/12/2020. In the meantime, we were able to get him approved for a trial of salvage therapy with melphalan flufenamide. He began cycle 1 on 11/29/2020. It was administered at reduced dosage because of his low baseline platelet count. During subsequent follow-up there was a significant further decline in the platelet count, to as low as 16,000, but he did not have any bleeding complications. He had gradual recovery. He continued with cycle 2 on 01/24/2021. At that point he was still having significant back pain, and his repeat MRI of the lumbar spine at that time showed multiple new compression fractures involving L3, L4, and L5 vertebral bodies. There was also new anterior wedging at T11 and T12. Jacki while you were thinking later by his follow-up serum protein electrophoresis on 02/21/2021 showed a significant decline in the M protein, to 0.1 g/dL. There was a moderate central canal stenosis noted at L4-5. MRI of the pelvis on 02/01/2021 showed innumerable enhancing myelomatous lesions throughout the lower thoracic spine, pelvis, sacrum, and proximal femurs. MRI of the thoracic spine on 02/13/2021 again showed diffuse heterogeneous enhancing myelomatous lesions throughout the thoracic spine. There were some small disc protrusions. There was no high-grade central canal stenosis. With those findings he was given additional palliative radiation from T12-S1, completed 02/07/2021 to a total dose of 1500 cGy administered in 5 fractions. As of his follow-up visit on 03/21/2021 he continued to have mild to moderately severe neutropenia and thrombocytopenia, but he had shown some recovery, and he continued with cycle 3 of melphalan flufenamide. His repeat protein electrophoresis showed stable M protein of 0.2 g/dL. On 04/20/2021 he underwent bilateral L4/5 laminectomy with partial facetectomies. He was given a platelet pheresis prophylactically, and he tolerated the procedure well. He has continued with Melphalan flufentamide when his blood counts have allowed. His cycle 4 was given on May 02, 2021. During the interim his platelet count had nadired at 8000 on May 15, 2021 and has gradually recovered to 50,000 today. His neutrophils nadired at 220 on May 08, 2021 and remained low but have recovered to 2000 today. Reviewing his myeloma labs as of November 27, 2020 (he began his first cycle of the melphalan flufenamide on 11/28/2020). His kappa free light chain at that time was 237.9 lambda free light chain was 8.7 and the kappa lambda ratio was 27.34. His next cycle was not given until January 24, 2021 and cycle 3 was on 03/21/2021. His kappa free light chain on February 21, 2021 was 32.4 lambda free light chain was 14.9 and the ratio was 2.17. His kappa free light chain on 03/21/2020 was 28.7, the lambda free light chain was 12.7 and the ratio was 2.26. He received cycle 4 on May 02, 2021. And had repeat myeloma labs on 06/12/2021 at which time the kappa free light chain was 83.7 lambda free light chain was 36.0 and the kappa lambda free ratio was 2.33. His SPEP has shown abnormal protein at 3.0 on 329 but since then has read 0.1 and 0.2 with 2 abnormal proteins detected on his last SPEP on 06/12/2021 the level of each of those was reported at 0.1. Mr. Stephens reports that he is tolerating his treatment well. He has no new concerns. He states he feels good overall. He continues to live in the assisted living facility but can help provide some care of his own. He continues to have dialysis 3 days a week. He denies any fever or chills. He denies any new shortness of breath orthopnea. He denies any diarrhea. He denies any worsening of neuropathy symptoms. His ECOG remains at 2. The melphalan flufenamide has been taken off the market but we are obtaining medication for him for the [employer] company as he has had documented response on his myeloma labs. He is currently not having any evidence of bleeding. He states his dialysis fistula has been doing well. Past Medical History: Benign prostatic hypertrophy End stage renal disease on home peritoneal dialysis Hyperlipidemia Hypertension Multiple myeloma Type II diabetes with peripheral neuropathy Past Surgical History: Colonoscopy Placement of peritoneal diaysis catheter Placement of portacath venous access device Bilateral L4/5 laminectomy in 2020 Covid vaccine #2 in 2020 Covid vaccine #1 in 2020 Fistula in left arm in 2018 Prevnar 13 in 2017 Cataract excision in 2015 Right inguinal hernia repair in 2007 Cholecystectomy in 1983 Allergies: Bactrim, Codeine Sulfate, Sulfa Antibiotics, TraMADol HCl, and Verapamil HCl. Medications: Acetaminophen 2 Tablet (of 325 mg) Oral four times a day PRN Acyclovir 1 Tablet (of 400 mg) Oral daily Albuterol Sulfate 1 Vial(s) (of (2.5 mg/3ml) 0.083%) Nebulization solution Inhalation t.i.d. PRN Albuterol Sulfate 1 Inhalation (of 108 (90 base) mcg/act) Aerosol Powder, Breath Activated Inhalation q 4 hours Allopurinol 1 Tablet (of 100 mg) Oral daily ALPRAZolam 1 Tablet (of 0.25 mg) Oral at bedtime amLODIPine Besylate 1 Tablet (of 2.5 mg) Oral daily Bisacodyl EC 2 Tablet (of 5 mg) Tablet, enteric coated Oral daily PRN Calcium Acetate 1 Capsule (of 667 mg) Oral t.i.d. Cipro 1 Tablet (of 500 mg) Oral b.i.d. Fluconazole 1 Tablet (of 100 mg) Oral daily Furosemide 1 Tablet (of 80 mg) Oral daily Gentamicin Sulfate 1 (0.1 %) Cream Topical at bedtime HYDROmorphone HCl 1 (2 mg) Tablet Oral four times a day PRN Levothyroxine Sodium 1 Tablet (of 50 mcg) Oral daily Loperamide HCl 1 - 2 Tablet (of 2 mg) Oral PRN Lovastatin 1 (40 mg) Tablet Oral at bedtime Metoprolol Succinate ER (25 mg) Tablet SR 24 HR Oral daily Mucinex 1 Tablet (of 600 mg) Tablet SR 12 HR Oral b.i.d. PRN Prochlorperazine Maleate 1 Tablet (of 10 mg) Oral q 6 hours PRN Renvela 3 (800 mg) Tablet Oral daily Requip 1 Tablet (of 0.5 mg) Oral b.i.d. Tamsulosin HCl 1 Tablet (of 0.4 mg) Capsule Oral b.i.d. Vital-D Rx 1 Tablet (of 1 mg) Oral daily Family History: Mr. Stephens's mother at age 82: Breast Cancer at age 70. Mr. Stephens's father at age 40. Mr. Stephens's maternal grandmother at age 80: cancer history consists of Breast cancer at age 80 (cause of ). Father at age 40, cause unknown to the patient. Mother of breast cancer at age 82. His maternal grandmother also had breast cancer. Social History: Mr. Stephens is and he is retired. Mr. Stephens has never smoked. He has no history of drinking. He is a nonsmoker. He does not drink alcohol. Review Of Symptoms: <See Above> Vital Signs: Performed on Jul 18, 2021 11:04 Height - 69.00 in Weight - 140.6 lbs (LOW) BSA - 1.78 sq.m BMI - 20.76 Temperature - 98.3 F (LOW) Pulse - 69 /min Respiration - 18 /min BP - 102/60 mm(hg) Pain - 5 Fatigue - 5,2 - Ambulatory/capable of all self-care, unable to perform any work activities. Up and about more than 50% of waking hours. (ECOG) Physical Examination: Constitutional Alert, oriented, no acute distress. Skin pink, warm and dry. Head Normocephalic; atraumatic. Eyes Conjunctivae and sclerae are clear and without icterus. ENMT No oral exudates, ulcers, masses, thrush or mucositis. Oropharynx clear. Tongue normal. Neck Supple without masses or thyromegaly. No jugular venous distension. Hematologic/Lymphatic No petechiae or purpura. Some bruising on hands-chronic Respiratory Lungs are clear to auscultation without rhonchi or wheezing. Cardiovascular Regular rate and rhythm of heart without murmurs,clicks, gallops or rubs. Abdomen Non-tender, non-distended, no masses, Back/Spine Non-tender to palpation. Extremities No visible deformities, no cyanosis, clubbing or edema. Left arm fistula is unremarkable-no active bleeding and no significant bruising. Musculoskeletal No tenderness or swelling, normal range of motion without obvious weakness. Integumentary No rashes or lesions. Extensive ecchymosis on both arms which is not new. Neurologic No sensory or motor deficits, normal cerebellar function. Assisted gait with wheeled walker Psychiatric Alert and oriented times three. Coherent speech. Verbalizes understanding of our discussions today. Laboratory:Test performed on Jul 09, 2021 13:05 WBC 2.2 10 3/uL RBC 2.61 10 6/uL HGB 9.1 g/dL HCT 28.0 % MCV 107.3 fl MCH 34.9 pg MCHC 32.5 g/dL RDW 24.6 % Platelet Count 6 10 3/cmm Neutrophils 1.59 10 3/uL Lymphocytes 0.2 10 3/uL Monocytes 0.3 10 3/uL Eosinophils 0.0 10 3/uL Basophils 0.0 10 3/uL Neutrophil % 73.5 % Lymphocyte % 11.1 % Monocyte % 12.5 % Eosinophil % 1.9 % Basophils % 0.5 % NRBC % 0 % Irrad Leukoreduced Platelets [id number] OP PLTLRI TRANSFUSED 07/10/21 1401 Test performed on Jun 26, 2021 13:40 Manual Segs % 77 % Manual Bands % 12.0 % Manual Lymphs % 8 % Total Cells Counted 100 Manual Monos % 1.0 % Manual Eos % 2 % MPV 10.5 fL Hypochromia S Anisocytosis 2+ Macrocytosis 1+ Ovalocytes Trace Tear Drop Cells Trace Platelet Estimate Decreased Manual Segs Abs 2.1 10/cmm Manual Bands Abs 0.3 10 3/cmm Manual Neutrophils Abs 2.4 10 3/cmm Manual Monocytes Abs 0.0 10 3/cmm Manual Eosinophils Abs 0.0 10 3/cmm Anti-D Positive Blood Type OP Antibody Screen (Gel) NEGATIVE Test performed on Jun 12, 2021 11:00 IGG 478 mg/dL IGM 55 mg/dL IgA 129 mg/dL Kinsman Free Light Chains 83.7 mg/L Lambda Free Light Chains 36.0 mg/L Kinsman/Lambda Free Ratio 2.33 Test performed on May 28, 2021 13:30 Sodium 141 mmol/L Potassium 3.7 mmol/L Chloride 100 mmol/L CO2 31 mmol/L Anion Gap 13.7 BUN 26 mg/dL Creatinine 3.0 mg/dL Cr Clearance (Est) 20.4600 mL/min Glucose 112 mg/dL Osmolality - Calculated 298 mOsm/kg Calcium 8.0 mg/dL Protein, Total 5.6 g/dL Albumin 3.5 g/dL Globulin 2.1 g/dL Bilirubin, Total 0.7 mg/dL ALT (SGPT) < 5 U/L AST (SGOT) 17 U/L Alkaline Phosphatase 74 IU/L Test performed on May 22, 2021 10:45 Irradiated Leuko Red RBC [id number] OP RCLRI ISSUED 05/23/21 1046 CBC Slide Review Slide Review Perform SLIDE REVIEWED AGREES WITH THE AUTO RESULT PLT Pheresis Irrad Leukoreduce [id number] OP IRPLT TRANSFUSED 05/23/21 1046 Test performed on Feb 13, 2021 09:17 Manual Diff Cancelled via OM: Entered in error Test performed on Feb 13, 2021 05:35 Manual Basophils 0.6 % Impression: 1. IgA kappa myeloma, initially diagnosed in September 2011. 2. During follow-up he had progression to end-stage renal disease. He initially had started daily home peritoneal dialysis, but with subsequent transition to hemodialysis. 3. Anemia associated with end-stage renal disease. 4. Hypertension. 5. Hyperlipidemia. 6. Type II diabetes with peripheral neuropathy. 7. Benign prostatic hypertrophy. 8. Hypothyroidism. Plan/Problems Addressed at this Visit: 1. Patient with IgA kappa myeloma, initially diagnosed in September 2011. His myeloma therapy included: 1. Velcade/dexamethasone for 3 cycles, completed December 2011. 2. High-dose melphalan/stem cell transplant in January 2012, complicated by sepsis and acute renal failure requiring hemodialysis. 3. Carfilzomib/dexamethasone for 10 cycles, completed May 2015. 4. Carfilzomib/Revlimid/dexamethasone beginning in January 2016. 5. Carfilzomib/pomalidomide/dexamethasone. 6. Daratumumab/Revlimid/dexamethasone beginning in October 2016. 7. Daratumumab monotherapy until January 2020. 8. Carfilzomib/daratumumab/dexamethasone from 03/01/2020 through 08/31/2020. 9. Melphalan flufentamide 11/28/2020-current (cycles have not been maintained at 28 day intervals due to low blood counts (neutropenia.thrombocytopenia). He has completed 5 cycles as of 07/18/2021. He had been showing gradual disease progression since September 2019, but has a October 2020 there was a more significant increase in his M protein level, to 3.0 g/dL. He was initially not overtly symptomatic, but he subsequently developed symptomatic bone involvement in the pelvis. He had associated pathologic fracture. He was given palliative radiation to the right hip area, completed on 11/07/2020 to a total dose of 800 cGy administered in a single fraction. In the meantime, we were able to get approval for a trial of salvage therapy with melphalan flufenamide. He began cycle 1 on 11/29/2020. It was administered at a reduced dosage due to baseline thrombocytopenia. During followup his platelet count nadired at 16,000. He had no bleeding. His dory granulocyte count was 600. He had gradual recovery. He continued with cycle 2 on 01/24/2021. The treatment was again complicated by severe neutropenia and thrombocytopenia, requiring growth factor support with Neupogen and platelet pheresis. During subsequent follow-up he did show some recovery of his blood counts. He was able to continue with cycle 3 of melphalan flufenamide on 03/21/2021. At that point he continued to show significant response by protein electrophoresis, with his M protein stable at 0.2 g/dL. He has since then continued to have moderately severe neutropenia, moderate to severe thrombocytopenia, and transfusion dependent anemia. He has had some recovery, though, and he continued with cycle 4 of melphalan flufenamide on 05/02/2021. The dosage remained the same but Dr Pinto add Neulasta prophylactically. Blood counts will be monitored weekly. A. Hold cycle 6 melphalan flufenamide 20 mg due to platelet count of 17,000. B. Supportive care as needed. C. Labs from July 16, 2021 were reviewed in detail discussed with Mr. Stephens and a copy was given to him. WBC 1.4, hemoglobin 8.7, platelets 17,000, ANC is 910. . D. He will have weekly interim labs and we will plan to see him back in 2 weeks with CBC CMP and myeloma studies to include SPEP with MEGHAN, QUIGS and serum free light chain assay. E. Mr. Stephens was instructed to contact us in interim should questions or problems arise. F. Will continue to pursue melphalan flufenamide via [employer]. He has shown response via his myeloma labs below: 11/27/20 02/21/21 03/21/21 06/12/21 Kinsman Free Light Chain: 237.9 32.4 28.7 83.7 Lamda Free Light Chain: 8.7 14.9 12.7 36.0 Kinsman/Lambda Free Ratio: 27.34 2.17 2.26 2.33 The interval between chemo is recommended to be 28 days...he has never been treated at this interval due to blood counts... (neutropenia and thrombocytopenia in particular. cycle 1 on 11/28 cycle 2 on 01/24 cycle 3 on 03/21 cycle 4 on 05/02 cycle 5 on 06/20 2. He has significant pain in his lower back. Management has been problematic due to very poor tolerance for opiate pain medication. His previous CT of the lumbar spine did show no obvious lytic lesions, but there were vertebral compression fractures. He ultimately did receive palliative radiation to the lumbar spine, completed on 02/07/2021. He underwent bilateral L4/5 laminectomy on 04/20/2021. At this point he is still having some back pain, but he has been able to reduce his opiate requirement and he has been able to increase his activity. He will continue to take hydromorphone as needed. ADDENDUM I did request a B12 level and folate as he has elevated MCV and MCH. Will obtain this on his next visit. Signed By: Ann Sheets-, [facility] Dustin Pitno MD <<Signature on File>>
== END 2021-07-18 05:54 | disposition home or self-care (01) ==
LOC: ONCMED 05:53
PROVIDERS: PCP Family Medicine; Visit Provider Nurse Practitioner
DX: C90.02 Multiple myeloma in relapse (principal); N18.6 End stage renal disease; Z99.2 Dependence on renal dialysis; D63.1 Anemia in chronic kidney disease; I12.0 Hypertensive chronic kidney disease with stage 5 chronic kidney disease or end stage renal disease; E11.42 Type 2 diabetes mellitus with diabetic polyneuropathy; E11.22 Type 2 diabetes mellitus with diabetic chronic kidney disease; N40.0 Benign prostatic hyperplasia without lower urinary tract symptoms; E03.9 Hypothyroidism, unspecified; Z79.899 Other long term (current) drug therapy; Z92.21 Personal history of antineoplastic chemotherapy; Z92.3 Personal history of irradiation
CPT/HCPCS: 99214

== ENCOUNTER 2021-07-23 06:42 | Outpatient (CLI) | payer MEDICARE, OTHER, SELFPAY ==
[2021-07-23 13:54] LABS: Basophils % 0.7 %; Eosinophils # 0.1 10^3/uL (0.0-0.8); Eosinophils % 3.5 %; Hematocrit 27.9 % (42.0-52.0); Hemoglobin 9.3 g/dL (11.7-16.6); Lymphocytes # 0.3 10^3/uL (0.8-4.8); Lymphocytes % 17.5 %; Mean Corpuscular HGB Conc 33.3 g/dL (30.0-36.0); Mean Corpuscular Hemoglobin 36.6 pg (28.0-34.0); Mean Corpuscular Volume 109.8 fl (80-94); Monocytes # 0.3 10^3/uL (0.2-0.9); Monocytes % 21.7 %; Neutrophils % 56.6 %; Nucleated Red Blood Cells % 0 %; Red Blood Count 2.54 10^6/uL (4.1-5.3); Red Cell Distribution Width 27.4 % (12.1-15.1); White Blood Count 1.4 10^3/uL (4.0-10.0)
[2021-07-23 13:57] LABS: Neutrophils # 0.81 10^3/uL (1.8-7.7); Platelet Count 24 10^3/cmm (130-400)
== END 2021-07-23 06:43 | disposition home or self-care (01) ==
LOC: ONCMED 06:42
PROVIDERS: PCP Family Medicine; Visit Provider Nurse Practitioner
DX: C90.02 Multiple myeloma in relapse (principal); N18.6 End stage renal disease; Z99.2 Dependence on renal dialysis; D63.1 Anemia in chronic kidney disease; I12.0 Hypertensive chronic kidney disease with stage 5 chronic kidney disease or end stage renal disease; Z79.899 Other long term (current) drug therapy
CPT/HCPCS: 36591; 85025; 86850; 86900

== ENCOUNTER 2021-07-30 13:34 | Outpatient (CLI) | payer MEDICARE, OTHER, SELFPAY ==
[2021-07-30 14:20] LABS: Basophils % 0.8 %; Eosinophils # 0.1 10^3/uL (0.0-0.8); Eosinophils % 2.8 %; Hematocrit 28.3 % (42.0-52.0); Hemoglobin 9.6 g/dL (11.7-16.6); Lymphocytes # 0.3 10^3/uL (0.8-4.8); Lymphocytes % 11.2 %; Mean Corpuscular HGB Conc 33.9 g/dL (30.0-36.0); Mean Corpuscular Hemoglobin 37.9 pg (28.0-34.0); Mean Corpuscular Volume 111.9 fl (80-94); Monocytes # 0.4 10^3/uL (0.2-0.9); Monocytes % 14.4 %; Neutrophils # 1.76 10^3/uL (1.8-7.7); Neutrophils % 70.4 %; Nucleated Red Blood Cells % 0 %; Platelet Count 37 10^3/cmm (130-400); Red Blood Count 2.53 10^6/uL (4.1-5.3); Red Cell Distribution Width 26.8 % (12.1-15.1); White Blood Count 2.5 10^3/uL (4.0-10.0)
== END 2021-07-30 13:35 | disposition home or self-care (01) ==
PROVIDERS: PCP Family Medicine; Visit Provider Nurse Practitioner
DX: C90.02 Multiple myeloma in relapse (principal); N18.6 End stage renal disease; Z99.2 Dependence on renal dialysis; D47.2 Monoclonal gammopathy; I12.0 Hypertensive chronic kidney disease with stage 5 chronic kidney disease or end stage renal disease; D63.1 Anemia in chronic kidney disease; Z79.899 Other long term (current) drug therapy
CPT/HCPCS: 36591; 85025

== ENCOUNTER 2021-08-01 06:21 | Outpatient (CLI) | payer MEDICARE, OTHER, SELFPAY ==
--- NOTE | 2021-08-04 14:05 | ONC FU_ITS ---
Dr. Pitno Patient Follow-Up Note Patient: Larry Stephens Unit #: [id number]: 1945 Dicatated By: Dustin Pinto M.D.Date of Visit:Aug 01, 2021 Onc Med Follow-up/Prog Note Chief Complaint: Multiple myeloma. History of Present Illness: This is a 75 year-old man with relapsed IgA kappa myeloma. He has associated end-stage renal disease and anemia. He had pre-existing hypertension, hyperlipidemia, and type II diabetes. He had developed stage III chronic kidney disease following a colonoscopy prep. He had been seeing Dr. Miguelangel Cha for his nephrology follow-up care, and he was then found to have evidence of IgA kappa monoclonal gammopathy in October 2010. He was initially seen here by Dr. Plasencia in September 2011. At that point his protein electrophoresis showed IgA kappa monoclonal protein quantitating at 1.3 g/dL with 0.2 g/dL of free kappa monoclonal protein. UPEP was reportedly unrevealing. Bone marrow aspiration/biopsy showed 12% plasma cells. 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 There was no evidence of lytic bone involvement. His baseline creatinine was 1.8 mg/dL. He was treated initially with 3 cycles of Velcade/dexamethasone between October and December 2011. He required a dose reduction in the Velcade due to neuropathy. His repeat bone marrow aspiration/biopsy at [facility] on 01/01/2012 showed increase in the plasma cells to 17%. He then continued treatment at [facility] with autologous peripheral stem cell transplant in January 2012, I assume with high-dose melphalan, though it is not stated in the available records. The procedure was complicated by sepsis and acute renal failure requiring hemodialysis. He had subsequent relapse of the myeloma. His further treatment included 10 cycles of carfilzomib and dexamethasone beginning in May 2015. It was changed to carfilzomib, Revlimid, and dexamethasone beginning in January 2016 due to disease progression. Following further disease progression, his treatment was transitioned to carfilzomib, pomalidomide, and dexamethasone. As of October 2016, due to progressive kidney disease concerning for progressive myeloma, his treatment was changed to daratumumab, Revlimid, and dexamethasone. The Revlimid and dexamethasone were subsequently omitted due to toxicities, and he then continued daratumumab as a single agent. It was administered on a monthly schedule. During this time his kidney function had progressed to end-stage renal disease, and he began on home peritoneal dialysis. He had been receiving treatment at [facility]. He was seen here in October 2017 because he desired to continue his further treatment locally. Following his initial visit he continued monthly daratumumab infusions with no apparent adverse effects and no obvious progression of the myeloma. His hemoglobin/hematocrit levels remained stable above transfusion thresholds. On 06/25/2018 he was seen in the emergency room with increasing weakness. On evaluation, he was found to have a low B12 level at 168 pg/mL, and his TSH level was found to be elevated at 13.500 mIU/mL. He started B12 injections, and he also started thyroid replacement. As of 07/22/2018 there was further decline in the hemoglobin to 8.6 g, and at that point he did start treatment with Procrit. He had a very good response with his hemoglobin increasing to 12.2 g after 2 weekly injections. As of October 2018 he had [facility], and he then began hemodialysis. At that point his erythropoietin stimulating agent was changed to Mircera. He then became progressively more anemic. As of 12/02/2018 his hemoglobin had stabilized at 7.9 g. He then restarted Procrit on 12/17/2018. During this time, he also had continued his monthly daratumumab infusions. His anemia did improve after restarting the Procrit. During follow-up his clinical status had otherwise remained stable. His protein electrophoresis had continued to show a very small M protein spike. There had been no significant change in his serum free light chains. 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 He continued on his monthly daratumumab infusions. As of 12/09/2019 he received cycle 38 of daratumumab. He had been tolerating the treatment well and his clinical status had been stable. However, he had been showing a very gradual increase in his M protein, in the kappa free light chain, and in the kappa/lambda ratio. I had discussed options for further treatment, and we ultimately decided to just try adding back carfilzomib. He began cycle 1 of daratumumab in combination with carfilzomib and dexamethasone on 03/01/2020. He tolerated the day 1 and day 2 carfilzomib infusions without acute toxicity. He was then able to continue with his day 7/8 and day 15/16 carfilzomib infusions on schedule, but he was not able to tolerate any dose escalation due to moderately severe thrombocytopenia. He then continued monthly cycles of treatment with the carfilzomib dosage unchanged. He began cycle 6 on 08/02/2020. His repeat protein electrophoresis studies on 08/22/2020 showed further increase in his M protein to 2.0 g/dL compared to 1.2 g/dL on 02/22/2020. During that same time period his serum free light chain assay showed an increase in the kappa/lambda ratio from 10.52 to 60.22. With continued evidence of disease progression, the daratumumab/carfilzomib regimen was stopped. I had seen him for a follow-up visit on 09/13/2020, at that time I reviewed other treatment options. As he was not having any obvious symptoms associated with the myeloma, he preferred to just continue observation/expectant management. His medical illnesses, in addition to myeloma and renal failure, include hypertension, hyperlipidemia, type II diabetes with peripheral neuropathy, and benign prostatic hypertrophy. He is a nonsmoker. INTERIM HISTORY: As of his follow-up visit in October 2020 his repeat protein electrophoresis showed significant increase in his M protein to 3.0 g/dL. At that point he was still stable clinically and he preferred not to attempt any of the available salvage therapies due to concerns over their potential side effects. He had subsequently developed increased pain in his lower back and pelvic area. A CT of the lumbar spine on 10/03/2020 had shown evidence of acute compression fracture involving the superior endplate of the L2 vertebral body but with minimal loss of vertebral body height. There was annual bulging at L4-5 with moderate central canal stenosis and slight anterolisthesis. Further evaluation with CT of the pelvis on 10/23/2020 showed diffuse demineralization with vague lytic lesions throughout the pelvis and sacrum, suspicious for myeloma or possibly metastatic disease. There is no apparent fracture in the right hip but there was suspected pathologic fracture involving the right inferior pubic ramus with a lytic lesion measuring 2.1 x 1.8 cm. He had radiation oncology consultation with Dr. Delgado on 11/01/2020, and he was given palliative radiation to the right hip area. His clinical course was complicated by significant [employer] toxicity associated with opiate pain medication. He was able to complete his radiation on 11/07/2020 to a total dose of 800 cGy administered in a single fraction. He had a follow-up visit with Dr. Goncalves on 11/27/2020. At that time his right hip pain had improved, but he was reporting severe pain in the low back area. In the absence of any known lytic disease in that area, he was referred to pain management. He subsequently was given a lumbar medial branch block and cervical/thoracic medial branch block on 12/12/2020. In the meantime, we were able to get him approved for a trial of salvage therapy with melphalan flufenamide. He began cycle 1 on 11/29/2020. It was administered at reduced dosage because of his low baseline platelet count. During subsequent follow-up there was a significant further decline in the platelet count, to as low as 16,000, but he did not have any bleeding complications. He had gradual recovery. He continued with cycle 2 on 01/24/2021. At that point he was still having significant back pain, and his repeat MRI of the lumbar spine at that time showed multiple new compression fractures involving L3, L4, and L5 vertebral bodies. There was also new anterior wedging at T11 and T12. His follow-up serum protein electrophoresis on 02/21/2021 showed a significant decline in the M protein, to 0.1 g/dL. There was a moderate central canal stenosis noted at L4-5. MRI of the pelvis on 02/01/2021 showed innumerable enhancing myelomatous lesions throughout the lower thoracic spine, pelvis, sacrum, and proximal femurs. MRI of the thoracic spine on 02/13/2021 again showed diffuse heterogeneous enhancing myelomatous lesions throughout the thoracic spine. There were some small disc protrusions. There was no high-grade central canal stenosis. With those findings he was given additional palliative radiation from T12-S1, completed 02/07/2021 to a total dose of 1500 cGy administered in 5 fractions. As of his follow-up visit on 03/21/2021 he continued to have mild to moderately severe neutropenia and thrombocytopenia, but he had shown some recovery, and he continued with cycle 3 of melphalan flufenamide. His repeat protein electrophoresis showed stable M protein of 0.2 g/dL. On 04/20/2021 he underwent bilateral L4/5 laminectomy with partial facetectomies. He was given a platelet pheresis prophylactically, and he tolerated the procedure well. He continued with cycle 4 of melphalan flufenamide on 05/02/2021. On 05/24/2021 he underwent repair of left inguinal hernia with mesh and repair of umbilical hernia. He had no complications with the procedure. He continued with cycle 5 of melphalan flufenamide on 06/20/2021. His protein electrophoresis at that point showed his M protein stable at 0.1 g/dL. He has seen for a follow-up visit. His main complaint is that his back is still bothering him real bad, and it does limit his activity. He is still able to do some walking, as the pain seems to be worse when he is sitting or lying. ECOG score is 2. His appetite is just fair. He does not have fever or night sweats. He has not had sore mouth or throat. He does not complain of cough, and he has not been having shortness of breath or chest pain. He has no GI complaints. His bladder function has improved with medication. His pain is just in the low back. He has no other joint or bone pain. He does not complain of headache or dizziness. He has some numbness in his feet. Medications: Acetaminophen 2 Tablet (of 325 mg) Oral four times a day PRN, Acyclovir 1 Tablet (of 400 mg) Oral daily, Albuterol Sulfate 1 Vial(s) (of (2.5 mg/3ml) 0.083%) Nebulization solution Inhalation t.i.d. PRN, Albuterol Sulfate 1 Inhalation (of 108 (90 base) mcg/act) Aerosol Powder, Breath Activated Inhalation q 4 hours, Allopurinol 1 Tablet (of 100 mg) Oral daily, ALPRAZolam 1 Tablet (of 0.25 mg) Oral at bedtime, amLODIPine Besylate 1 Tablet (of 2.5 mg) Oral daily, Bisacodyl EC 2 Tablet (of 5 mg) Tablet, enteric coated Oral daily PRN, Calcium Acetate 1 Capsule (of 667 mg) Oral t.i.d., Cipro 1 Tablet (of 500 mg) Oral b.i.d., Fluconazole 1 Tablet (of 100 mg) Oral daily, Furosemide 1 Tablet (of 80 mg) Oral daily, Gentamicin Sulfate 1 (0.1 %) Cream Topical at bedtime, HYDROmorphone HCl 1 (2 mg) Tablet Oral four times a day PRN, Levothyroxine Sodium 1 Tablet (of 50 mcg) Oral daily, Loperamide HCl 1 - 2 Tablet (of 2 mg) Oral PRN, Lovastatin 1 (40 mg) Tablet Oral at bedtime, Metoprolol Succinate ER (25 mg) Tablet SR 24 HR Oral daily, Mucinex 1 Tablet (of 600 mg) Tablet SR 12 HR Oral b.i.d. PRN, Prochlorperazine Maleate 1 Tablet (of 10 mg) Oral q 6 hours PRN, Renvela 3 (800 mg) Tablet Oral daily, Requip 1 Tablet (of 0.5 mg) Oral b.i.d., Tamsulosin HCl 1 Tablet (of 0.4 mg) Capsule Oral b.i.d., Vital-D Rx 1 Tablet (of 1 mg) Oral daily Allergies: Bactrim, Codeine Sulfate, Sulfa Antibiotics, TraMADol HCl, and Verapamil HCl. Vital Signs: Performed on Aug 01, 2021 10:51 Height - 69.00 in Weight - 140.8 lbs (HIGH) BSA - 1.78 sq.m BMI - 20.79 Temperature - 98.2 F (LOW) Pulse - 77 /min Respiration - 16 /min BP - 106/58 mm(hg) O2 Sat - 98 % Pain - 8 Fatigue - 9 Physical Examination: Constitutional - He appears somewhat weak generally, Eyes - Sclerae nonicteric. Conjunctivae clear, ENMT - No lesions noted in the oral cavity, Hematologic/Lymphatic - No cervical, clavicular, or axillary adenopathy, Respiratory - Lungs are clear with good air movement bilaterally, Cardiovascular - Heart rhythm is regular. There is a II/ systolic murmur. There is no gallop or rub noted, Abdomen - Soft. Liver and spleen are not enlarged. There is no abdominal mass or ascites noted and there is no inguinal adenopathy, Extremities - No edema. He has extensive purpura, Neurologic - No focal neurologic deficits noted. Lab/Imaging: Test performed on Jul 09, 2021 13:05 WBC 2.2 10 3/uL RBC 2.61 10 6/uL HGB 9.1 g/dL HCT 28.0 % MCV 107.3 fl MCH 34.9 pg MCHC 32.5 g/dL RDW 24.6 % Platelet Count 6 10 3/cmm Neutrophils 1.59 10 3/uL Lymphocytes 0.2 10 3/uL Monocytes 0.3 10 3/uL Eosinophils 0.0 10 3/uL Basophils 0.0 10 3/uL Neutrophil % 73.5 % Lymphocyte % 11.1 % Monocyte % 12.5 % Eosinophil % 1.9 % Basophils % 0.5 % NRBC % 0 % Irrad Leukoreduced Platelets [id number] OP PLTLRI TRANSFUSED 07/10/21 1401 Problem List: 1. IgA kappa myeloma, initially diagnosed in September 2011. 2. During follow-up he had progression to end-stage renal disease. He initially had started daily home peritoneal dialysis, but with subsequent transition to hemodialysis. 3. Anemia associated with end-stage renal disease. 4. Hypertension. 5. Hyperlipidemia. 6. Type II diabetes with peripheral neuropathy. 7. Benign prostatic hypertrophy. 8. Hypothyroidism. Problems Addressed with this Encounter and Plan: 1. Patient with IgA kappa myeloma, initially diagnosed in September 2011. His myeloma therapy included: 1. Velcade/dexamethasone for 3 cycles, completed December 2011. 2. High-dose melphalan/stem cell transplant in January 2012, complicated by sepsis and acute renal failure requiring hemodialysis. 3. Carfilzomib/dexamethasone for 10 cycles, completed May 2015. 4. Carfilzomib/Revlimid/dexamethasone beginning in January 2016. 5. Carfilzomib/pomalidomide/dexamethasone. 6. Daratumumab/Revlimid/dexamethasone beginning in October 2016. 7. Daratumumab monotherapy until January 2020. 8. Carfilzomib/daratumumab/dexamethasone from 03/01/2020 through 08/31/2020. He had been showing gradual disease progression since September 2019, but has a October 2020 there was a more significant increase in his M protein level, to 3.0 g/dL. He was initially not overtly symptomatic, but he subsequently developed symptomatic bone involvement in the pelvis. He had associated pathologic fracture. He was given palliative radiation to the right hip area, completed on 11/07/2020 to a total dose of 800 cGy administered in a single fraction. In the meantime, we were able to get approval for a trial of salvage therapy with melphalan flufenamide. He began cycle 1 on 11/29/2020. It was administered at a reduced dosage due to baseline thrombocytopenia. During followup his platelet count nadired at 16,000. He had no bleeding. His dory granulocyte count was 600. He had gradual recovery. He continued with cycle 2 on 01/24/2021. The treatment was again complicated by severe neutropenia and thrombocytopenia, requiring growth factor support with Neupogen and platelet pheresis. During subsequent follow-up he did show some recovery of his blood counts. He was able to continue with cycle 3 of melphalan flufenamide on 03/21/2021, with cycle 4 on 05/02/2021 and with cycle 5 on 06/20/2021. During follow-up he has had persistent pancytopenia, including moderately severe neutropenia, moderate to severe thrombocytopenia, and transfusion dependent anemia. However, his protein electrophoresis studies have shown significant improvement, indicative of response to the melphalan flufenamide. As his neutrophil count and platelet count are still low, his treatment will remain on hold. Blood counts will be monitored weekly. He will be transfused as needed. 2. He has significant pain in his lower back. Management has been problematic due to very poor tolerance for opiate pain medication. His previous CT of the lumbar spine did show no obvious lytic lesions, but there were vertebral compression fractures. He ultimately did receive palliative radiation to the lumbar spine, completed on 02/07/2021. He underwent bilateral L4/5 laminectomy on 04/20/2021. During subsequent follow-up he has continued to have lower back pain which is significant enough to limit his activity. Overall, he does not feel that there was significant improvement with the surgery. Signed By: Dustin Pinto M.D. <<Signature on File>>
== END 2021-08-01 06:22 | disposition home or self-care (01) ==
LOC: ONCMED 06:23
PROVIDERS: PCP Family Medicine; Visit Provider Internal Medicine Medical Oncology
DX: C90.02 Multiple myeloma in relapse (principal); E11.22 Type 2 diabetes mellitus with diabetic chronic kidney disease; N18.6 End stage renal disease; Z99.2 Dependence on renal dialysis; I12.0 Hypertensive chronic kidney disease with stage 5 chronic kidney disease or end stage renal disease; D63.1 Anemia in chronic kidney disease; E78.5 Hyperlipidemia, unspecified; N40.0 Benign prostatic hyperplasia without lower urinary tract symptoms; E03.9 Hypothyroidism, unspecified; Z79.899 Other long term (current) drug therapy; Z92.21 Personal history of antineoplastic chemotherapy; Z92.3 Personal history of irradiation
CPT/HCPCS: 99214

== ENCOUNTER 2021-08-06 06:50 | Outpatient (CLI) | payer MEDICARE, OTHER, SELFPAY ==
[2021-08-06 15:44] LABS: Basophils % 0.7 %; Eosinophils # 0.1 10^3/uL (0.0-0.8); Eosinophils % 3.2 %; Hematocrit 30.4 % (42.0-52.0); Hemoglobin 10.2 g/dL (11.7-16.6); Lymphocytes # 0.3 10^3/uL (0.8-4.8); Lymphocytes % 10.6 %; Mean Corpuscular HGB Conc 33.6 g/dL (30.0-36.0); Mean Corpuscular Hemoglobin 38.6 pg (28.0-34.0); Mean Corpuscular Volume 115.2 fl (80-94); Mean Platelet Volume 10.1 fL (7.4-10.4); Monocytes # 0.4 10^3/uL (0.2-0.9); Monocytes % 14.8 %; Neutrophils % 70.3 %; Nucleated Red Blood Cells % 0 %; Platelet Count 49 10^3/cmm (130-400); Red Blood Count 2.64 10^6/uL (4.1-5.3); Red Cell Distribution Width 24.9 % (12.1-15.1); White Blood Count 2.8 10^3/uL (4.0-10.0)
[2021-08-06 16:37] LABS: Slide Review Slide Review Perform
== END 2021-08-06 06:51 | disposition home or self-care (01) ==
LOC: ONCMED 06:52
PROVIDERS: PCP Family Medicine; Visit Provider Internal Medicine Medical Oncology
DX: C90.02 Multiple myeloma in relapse (principal); D47.2 Monoclonal gammopathy; N18.6 End stage renal disease; Z99.2 Dependence on renal dialysis; I12.0 Hypertensive chronic kidney disease with stage 5 chronic kidney disease or end stage renal disease; D63.1 Anemia in chronic kidney disease; Z79.899 Other long term (current) drug therapy
CPT/HCPCS: 36591; 85025

== ENCOUNTER 2021-08-13 06:44 | Outpatient (CLI) | payer MEDICARE, OTHER, SELFPAY ==
[2021-08-13 14:51] LABS: Basophils % 1.1 %; Eosinophils # 0.1 10^3/uL (0.0-0.8); Eosinophils % 2.2 %; Hematocrit 31.5 % (42.0-52.0); Hemoglobin 10.2 g/dL (11.7-16.6); Lymphocytes # 0.2 10^3/uL (0.8-4.8); Lymphocytes % 8.7 %; Mean Corpuscular HGB Conc 32.4 g/dL (30.0-36.0); Mean Corpuscular Hemoglobin 37.8 pg (28.0-34.0); Mean Corpuscular Volume 116.7 fl (80-94); Monocytes # 0.4 10^3/uL (0.2-0.9); Monocytes % 13.8 %; Neutrophils # 2.03 10^3/uL (1.8-7.7); Neutrophils % 73.8 %; Nucleated Red Blood Cells % 0 %; Platelet Count 49 10^3/cmm (130-400); Red Cell Distribution Width 22.5 % (12.1-15.1); White Blood Count 2.8 10^3/uL (4.0-10.0)
== END 2021-08-13 06:45 | disposition home or self-care (01) ==
LOC: ONCMED 06:44
PROVIDERS: PCP Family Medicine; Visit Provider Internal Medicine Medical Oncology
DX: C90.02 Multiple myeloma in relapse (principal); D47.2 Monoclonal gammopathy; I12.0 Hypertensive chronic kidney disease with stage 5 chronic kidney disease or end stage renal disease; E11.22 Type 2 diabetes mellitus with diabetic chronic kidney disease; N18.6 End stage renal disease; Z99.2 Dependence on renal dialysis; D63.1 Anemia in chronic kidney disease
CPT/HCPCS: 36591; 85025; 86850; 86900

== ENCOUNTER 2021-08-20 06:40 | Outpatient (CLI) | payer MEDICARE, OTHER, SELFPAY ==
[2021-08-20 14:36] LABS: Basophils % 0.6 %; Eosinophils # 0.1 10^3/uL (0.0-0.8); Eosinophils % 2.3 %; Hematocrit 34.3 % (42.0-52.0); Hemoglobin 11.5 g/dL (11.7-16.6); Lymphocytes # 0.3 10^3/uL (0.8-4.8); Lymphocytes % 9.1 %; Mean Corpuscular HGB Conc 33.5 g/dL (30.0-36.0); Mean Corpuscular Hemoglobin 39.1 pg (28.0-34.0); Mean Corpuscular Volume 116.7 fl (80-94); Mean Platelet Volume 8.8 fL (7.4-10.4); Monocytes # 0.4 10^3/uL (0.2-0.9); Monocytes % 11.7 %; Neutrophils # 2.66 10^3/uL (1.8-7.7); Nucleated Red Blood Cells % 0 %; Platelet Count 42 10^3/cmm (130-400); Red Blood Count 2.94 10^6/uL (4.1-5.3); White Blood Count 3.5 10^3/uL (4.0-10.0)
[2021-08-20 15:12] LABS: Vitamin B12 884 pg/mL (232-1245)
== END 2021-08-20 06:41 | disposition home or self-care (01) ==
LOC: ONCMED 06:40
PROVIDERS: PCP Family Medicine; Visit Provider Internal Medicine Medical Oncology
DX: C90.00 Multiple myeloma not having achieved remission (principal); E53.8 Deficiency of other specified B group vitamins
CPT/HCPCS: 36591; 82607; 85025

== ENCOUNTER 2021-08-23 06:40 | Outpatient (CLI) | payer MEDICARE, OTHER, SELFPAY ==
[2021-08-23 11:26] LABS: Immunoglobulin IGA 212 mg/dL (70-400); Immunoglobulin IGG 542 mg/dL (700-1600); Immunoglobulin IGM 33 mg/dL (40-230)
[2021-08-24 06:38] LABS: PROTEIN, TOTAL 5.7 g/dL (6.1-8.1)
[2021-08-24 12:22] LABS: ABNORMAL PROTEIN BAND 1 0.2 g/dL (NONE DETECTED); ABNORMAL PROTEIN BAND 2 0.2 g/dL (NONE DETECTED); ALBUMIN 3.8 g/dL (3.8-4.8); ALPHA 1 GLOBULIN 0.3 g/dL (0.2-0.3); ALPHA 2 GLOBULIN 0.6 g/dL (0.5-0.9); BETA 1 GLOBULIN 0.2 g/dL (0.4-0.6); BETA 2 GLOBULIN 0.2 g/dL (0.2-0.5); GAMMA GLOBULIN 0.6 g/dL (0.8-1.7)
[2021-08-24 14:28] LABS: KAPPA/LAMBDA LIGHT CHAINS FREE 2.98 (0.26-1.65); LAMBDA LIGHT CHAIN, FREE, SERU 30.5 mg/L (5.7-26.3)
== END 2021-08-23 06:41 | disposition home or self-care (01) ==
LOC: ONCMED 06:40
PROVIDERS: PCP Family Medicine; Visit Provider Nurse Practitioner Family
DX: C90.02 Multiple myeloma in relapse (principal); I12.0 Hypertensive chronic kidney disease with stage 5 chronic kidney disease or end stage renal disease; E11.22 Type 2 diabetes mellitus with diabetic chronic kidney disease; N18.6 End stage renal disease; Z99.2 Dependence on renal dialysis; D63.1 Anemia in chronic kidney disease; E11.42 Type 2 diabetes mellitus with diabetic polyneuropathy; N40.0 Benign prostatic hyperplasia without lower urinary tract symptoms; E03.9 Hypothyroidism, unspecified; Z79.899 Other long term (current) drug therapy; Z92.3 Personal history of irradiation; Z92.21 Personal history of antineoplastic chemotherapy
CPT/HCPCS: 36591; 82784; 83883; 84155; 84165; 99214

== ENCOUNTER 2021-08-30 06:28 | Outpatient (CLI) | payer MEDICARE, OTHER, SELFPAY ==
[2021-08-30 08:33] LABS: Basophils % 0.6 %; Eosinophils # 0.1 10^3/uL (0.0-0.8); Eosinophils % 3.6 %; Hematocrit 35.5 % (42.0-52.0); Hemoglobin 11.8 g/dL (11.7-16.6); Lymphocytes # 0.4 10^3/uL (0.8-4.8); Lymphocytes % 12.1 %; Mean Corpuscular HGB Conc 33.2 g/dL (30.0-36.0); Mean Corpuscular Hemoglobin 38.8 pg (28.0-34.0); Mean Corpuscular Volume 116.8 fl (80-94); Mean Platelet Volume 9.7 fL (7.4-10.4); Monocytes # 0.4 10^3/uL (0.2-0.9); Monocytes % 11.5 %; Neutrophils # 2.37 10^3/uL (1.8-7.7); Neutrophils % 71.9 %; Nucleated Red Blood Cells % 0 %; Platelet Count 44 10^3/cmm (130-400); Red Blood Count 3.04 10^6/uL (4.1-5.3); Red Cell Distribution Width 18.5 % (12.1-15.1); White Blood Count 3.3 10^3/uL (4.0-10.0)
== END 2021-08-30 06:29 | disposition home or self-care (01) ==
LOC: ONCMED 06:29
PROVIDERS: PCP Family Medicine; Visit Provider Nurse Practitioner Family
DX: C90.02 Multiple myeloma in relapse (principal); I12.0 Hypertensive chronic kidney disease with stage 5 chronic kidney disease or end stage renal disease; E11.22 Type 2 diabetes mellitus with diabetic chronic kidney disease; N18.6 End stage renal disease; E78.5 Hyperlipidemia, unspecified; E11.42 Type 2 diabetes mellitus with diabetic polyneuropathy; N40.0 Benign prostatic hyperplasia without lower urinary tract symptoms; E03.9 Hypothyroidism, unspecified; D69.6 Thrombocytopenia, unspecified; Z79.899 Other long term (current) drug therapy
CPT/HCPCS: 36591; 85025; 99214

== ENCOUNTER 2021-09-05 14:56 | Outpatient (CLI) | payer MEDICARE, OTHER, SELFPAY ==
[2021-09-05 15:39] LABS: Basophils % 0.9 %; Eosinophils # 0.1 10^3/uL (0.0-0.8); Hemoglobin 10.7 g/dL (11.7-16.6); Lymphocytes # 0.3 10^3/uL (0.8-4.8); Lymphocytes % 9.8 %; Mean Corpuscular HGB Conc 33.4 g/dL (30.0-36.0); Mean Corpuscular Hemoglobin 38.9 pg (28.0-34.0); Mean Corpuscular Volume 116.4 fl (80-94); Mean Platelet Volume 10.2 fL (7.4-10.4); Monocytes # 0.4 10^3/uL (0.2-0.9); Monocytes % 13.1 %; Neutrophils # 2.47 10^3/uL (1.8-7.7); Neutrophils % 73.2 %; Nucleated Red Blood Cells % 0 %; Platelet Count 46 10^3/cmm (130-400); Red Blood Count 2.75 10^6/uL (4.1-5.3); Red Cell Distribution Width 16.6 % (12.1-15.1); White Blood Count 3.4 10^3/uL (4.0-10.0)
== END 2021-09-05 14:57 | disposition home or self-care (01) ==
LOC: ONCMED 14:59
PROVIDERS: PCP Family Medicine; Visit Provider Internal Medicine Medical Oncology
DX: C90.02 Multiple myeloma in relapse (principal); E11.22 Type 2 diabetes mellitus with diabetic chronic kidney disease; I12.0 Hypertensive chronic kidney disease with stage 5 chronic kidney disease or end stage renal disease; N18.6 End stage renal disease; Z99.2 Dependence on renal dialysis; D63.1 Anemia in chronic kidney disease; Z79.899 Other long term (current) drug therapy
CPT/HCPCS: 36591; 85025

== ENCOUNTER 2021-09-12 13:20 | Outpatient (CLI) | payer MEDICARE, OTHER, SELFPAY ==
[2021-09-12 14:00] LABS: Basophils % 0.6 %; Eosinophils # 0.1 10^3/uL (0.0-0.8); Eosinophils % 2.8 %; Hematocrit 29.7 % (42.0-52.0); Hemoglobin 10.1 g/dL (11.7-16.6); Lymphocytes # 0.3 10^3/uL (0.8-4.8); Lymphocytes % 9.3 %; Mean Corpuscular Hemoglobin 39.3 pg (28.0-34.0); Mean Corpuscular Volume 115.6 fl (80-94); Mean Platelet Volume 10.2 fL (7.4-10.4); Monocytes # 0.4 10^3/uL (0.2-0.9); Monocytes % 12.4 %; Neutrophils # 2.41 10^3/uL (1.8-7.7); Neutrophils % 74.6 %; Nucleated Red Blood Cells % 0 %; Platelet Count 49 10^3/cmm (130-400); Red Blood Count 2.57 10^6/uL (4.1-5.3); Red Cell Distribution Width 15.3 % (12.1-15.1); White Blood Count 3.2 10^3/uL (4.0-10.0)
[2021-09-12 14:26] LABS: Alanine Aminotransferase 30 U/L (0-41); Albumin Level 4.2 g/dL (3.5-5.2); Alkaline Phosphatase 98 IU/L (40-130); Anion Gap 17.2 (5-19); Aspartate Amino Transferase 25 U/L (0-40); Blood Urea Nitrogen 23 mg/dL (8-23); Calcium 8.1 mg/dL (8.5-10.5); Carbon Dioxide 29 mmol/L (22-29); Chloride 98 mmol/L (98-107); Globulin 1.9 g/dL (1.3-4.6); Glucose 109 mg/dL (65-115); Osmolality Calculated 294 mOsm/kg (285-295); Potassium 4.2 mmol/L (3.5-5.1); Sodium 140 mmol/L (136-145); Total Bilirubin 0.6 mg/dL (0.15-1.2); Total Protein 6.1 g/dL (6.6-8.7)
== END 2021-09-12 13:21 | disposition home or self-care (01) ==
LOC: ONCMED 13:24
PROVIDERS: PCP Family Medicine; Visit Provider Internal Medicine Medical Oncology
DX: C90.02 Multiple myeloma in relapse (principal); D64.9 Anemia, unspecified
CPT/HCPCS: 36591; 80053; 85025

== ENCOUNTER 2021-09-17 06:35 | Outpatient (CLI) | payer MEDICARE, OTHER, SELFPAY ==
[2021-09-17] MEDS: dexamethasone 4 mg Tablet 20 MG PO (14:15)
[2021-09-17] MEDS: ondansetron 4 MG Tablet 8 MG PO (14:15)
[2021-09-17 14:26] LABS: Basophils % 0.5 %; Eosinophils # 0.1 10^3/uL (0.0-0.8); Eosinophils % 1.9 %; Hematocrit 28.7 % (42.0-52.0); Hemoglobin 9.5 g/dL (11.7-16.6); Lymphocytes # 0.3 10^3/uL (0.8-4.8); Lymphocytes % 6.2 %; Mean Corpuscular HGB Conc 33.1 g/dL (30.0-36.0); Mean Corpuscular Hemoglobin 39.1 pg (28.0-34.0); Mean Corpuscular Volume 118.1 fl (80-94); Mean Platelet Volume 10.6 fL (7.4-10.4); Monocytes # 0.4 10^3/uL (0.2-0.9); Monocytes % 9.7 %; Neutrophils # 3.43 10^3/uL (1.8-7.7); Neutrophils % 81.5 %; Nucleated Red Blood Cells % 0 %; Platelet Count 48 10^3/cmm (130-400); Red Blood Count 2.43 10^6/uL (4.1-5.3); Red Cell Distribution Width 14.8 % (12.1-15.1); White Blood Count 4.2 10^3/uL (4.0-10.0)
[2021-09-17 14:52] LABS: Alanine Aminotransferase 26 U/L (0-41); Albumin Level 4.2 g/dL (3.5-5.2); Alkaline Phosphatase 110 IU/L (40-130); Anion Gap 17.4 (5-19); Aspartate Amino Transferase 21 U/L (0-40); Blood Urea Nitrogen 28 mg/dL (8-23); Calcium 8.3 mg/dL (8.5-10.5); Carbon Dioxide 31 mmol/L (22-29); Chloride 99 mmol/L (98-107); Globulin 1.7 g/dL (1.3-4.6); Glucose 101 mg/dL (65-115); Immunoglobulin IGA 238 mg/dL (70-400); Immunoglobulin IGG 522 mg/dL (700-1600); Immunoglobulin IGM 25 mg/dL (40-230); Osmolality Calculated 302 mOsm/kg (285-295); Potassium 4.4 mmol/L (3.5-5.1); Sodium 143 mmol/L (136-145); Total Bilirubin 0.4 mg/dL (0.15-1.2); Total Protein 5.9 g/dL (6.6-8.7)
[2021-09-17 15:22] LABS: Hepatitis B Core AB, Total Non-Reactive (Nonreactive); Hepatitis B Surface Antigen Non-Reactive (Nonreactive); Hepatitis C Virus Antibody Non-Reactive (Nonreactive)
[2021-09-17 15:51] LABS: Hepatitis A Antibody IgM Non-Reactive (Nonreactive); Hepatitis B Surface AB < 3.5 (11.5-1000)
[2021-09-18 12:27] LABS: KAPPA LIGHT CHAIN, FREE, SERUM 107.4 mg/L (3.3-19.4); KAPPA/LAMBDA LIGHT CHAINS FREE 3.37 (0.26-1.65); LAMBDA LIGHT CHAIN, FREE, SERU 31.9 mg/L (5.7-26.3)
== END 2021-09-17 06:36 | disposition home or self-care (01) ==
LOC: ONCMED 06:36
PROVIDERS: PCP Family Medicine; Visit Provider Nurse Practitioner Family
DX: Z51.11 Encounter for antineoplastic chemotherapy (principal); C90.02 Multiple myeloma in relapse; I12.0 Hypertensive chronic kidney disease with stage 5 chronic kidney disease or end stage renal disease; N18.6 End stage renal disease; N40.0 Benign prostatic hyperplasia without lower urinary tract symptoms; Z79.899 Other long term (current) drug therapy; D61.818 Other pancytopenia; R53.1 Weakness
CPT/HCPCS: 36591; 80053; 82784; 83883; 85025; 86705; 86706; 86709; 86803; 87340; 96401; 99215; J8540; J9041; Q0162

== ENCOUNTER 2021-09-20 06:39 | Outpatient (CLI) | payer MEDICARE, OTHER, SELFPAY ==
[2021-09-20] MEDS: dexamethasone 4 mg Tablet 20 MG PO (13:20)
[2021-09-20] MEDS: ondansetron 4 MG Tablet 8 MG PO (13:20)
== END 2021-09-20 06:40 | disposition home or self-care (01) ==
LOC: ONCMED 06:39
PROVIDERS: PCP Family Medicine; Visit Provider Internal Medicine Medical Oncology
DX: Z51.12 Encounter for antineoplastic immunotherapy (principal); C90.02 Multiple myeloma in relapse; D47.2 Monoclonal gammopathy; N18.6 End stage renal disease; Z99.2 Dependence on renal dialysis; I12.0 Hypertensive chronic kidney disease with stage 5 chronic kidney disease or end stage renal disease; D63.1 Anemia in chronic kidney disease; Z79.899 Other long term (current) drug therapy; Z79.52 Long term (current) use of systemic steroids
CPT/HCPCS: 96401; J8540; J9041; Q0162

== ENCOUNTER 2021-09-24 06:44 | Outpatient (CLI) | payer MEDICARE, OTHER, SELFPAY ==
[2021-09-24 13:36] LABS: Eosinophils % 0.8 %; Hematocrit 28.6 % (42.0-52.0); Hemoglobin 9.9 g/dL (11.7-16.6); Lymphocytes # 0.3 10^3/uL (0.8-4.8); Lymphocytes % 6.2 %; Mean Corpuscular HGB Conc 34.6 g/dL (30.0-36.0); Mean Corpuscular Hemoglobin 40.1 pg (28.0-34.0); Mean Corpuscular Volume 115.8 fl (80-94); Mean Platelet Volume 11.8 fL (7.4-10.4); Monocytes # 0.5 10^3/uL (0.2-0.9); Monocytes % 11.2 %; Neutrophils % 81.2 %; Nucleated Red Blood Cells % 0.4 %; Platelet Count 44 10^3/cmm (130-400); Red Blood Count 2.47 10^6/uL (4.1-5.3); Red Cell Distribution Width 14.7 % (12.1-15.1); White Blood Count 4.8 10^3/uL (4.0-10.0)
[2021-09-24 14:10] VITALS: BP 108/67; PULSE 78; RESP 16; TEMP 36.5; O2SAT 97
[2021-09-24 14:12] LABS: Alanine Aminotransferase 26 U/L (0-41); Alkaline Phosphatase 101 IU/L (40-130); Anion Gap 15.8 (5-19); Aspartate Amino Transferase 20 U/L (0-40); Blood Urea Nitrogen 32 mg/dL (8-23); Calcium 7.5 mg/dL (8.5-10.5); Carbon Dioxide 29 mmol/L (22-29); Chloride 97 mmol/L (98-107); Globulin 1.5 g/dL (1.3-4.6); Glucose 101 mg/dL (65-115); Osmolality Calculated 293 mOsm/kg (285-295); Potassium 3.8 mmol/L (3.5-5.1); Sodium 138 mmol/L (136-145); Total Bilirubin 0.4 mg/dL (0.15-1.2); Total Protein 5.5 g/dL (6.6-8.7)
[2021-09-24 14:25] VITALS: BP 104/64; PULSE 62; RESP 16; TEMP 36.8; O2SAT 99
[2021-09-24 14:40] VITALS: BP 115/72; PULSE 66; RESP 16; TEMP 36.8; O2SAT 99
[2021-09-24] MEDS: ondansetron 4 MG Tablet 8 MG PO (14:50)
[2021-09-24] MEDS: dexamethasone 4 mg Tablet 20 MG PO (14:50)
[2021-09-24 14:53] VITALS: BMI 22.6
[2021-09-24 15:15] VITALS: BP 108/69; PULSE 62; RESP 16; TEMP 36.8; O2SAT 97
== END 2021-09-24 06:45 | disposition home or self-care (01) ==
PROVIDERS: PCP Family Medicine; Visit Provider Nurse Practitioner Family
DX: Z51.11 Encounter for antineoplastic chemotherapy (principal); C90.02 Multiple myeloma in relapse
CPT/HCPCS: 36591; 80053; 85025; 96372; 96401; 99215; J8540; J9041; Q0162

== ENCOUNTER 2021-09-27 06:45 | Outpatient (CLI) | payer MEDICARE, OTHER, SELFPAY ==
[2021-09-27 14:41] LABS: Basophils % 0.3 %; Eosinophils % 0.3 %; Hematocrit 27.8 % (42.0-52.0); Hemoglobin 9.4 g/dL (11.7-16.6); Lymphocytes # 0.3 10^3/uL (0.8-4.8); Lymphocytes % 7.6 %; Mean Corpuscular HGB Conc 33.8 g/dL (30.0-36.0); Mean Corpuscular Volume 118.3 fl (80-94); Monocytes # 0.5 10^3/uL (0.2-0.9); Monocytes % 13.6 %; Neutrophils # 2.74 10^3/uL (1.8-7.7); Neutrophils % 77.4 %; Nucleated Red Blood Cells # 0.2 /100WBC; Nucleated Red Blood Cells % 4.5 %; Red Blood Count 2.35 10^6/uL (4.1-5.3); Red Cell Distribution Width 15.7 % (12.1-15.1); White Blood Count 3.5 10^3/uL (4.0-10.0)
[2021-09-27] MEDS: dexamethasone 4 mg Tablet 20 MG PO (15:00)
[2021-09-27 15:01] LABS: Platelet Count 26 10^3/cmm (130-400); Slide Review Slide Review Perform
[2021-09-27] MEDS: ondansetron 4 MG Tablet 8 MG PO (15:15)
[2021-09-27 15:23] LABS: Alanine Aminotransferase 20 U/L (0-41); Albumin Level 3.7 g/dL (3.5-5.2); Alkaline Phosphatase 91 IU/L (40-130); Anion Gap 16.2 (5-19); Aspartate Amino Transferase 13 U/L (0-40); Blood Urea Nitrogen 31 mg/dL (8-23); Calcium 7.8 mg/dL (8.5-10.5); Carbon Dioxide 27 mmol/L (22-29); Chloride 96 mmol/L (98-107); Globulin 1.4 g/dL (1.3-4.6); Glucose 81 mg/dL (65-115); Immunoglobulin IGA 194 mg/dL (70-400); Immunoglobulin IGG 419 mg/dL (700-1600); Immunoglobulin IGM 25 mg/dL (40-230); Osmolality Calculated 288 mOsm/kg (285-295); Potassium 3.2 mmol/L (3.5-5.1); Sodium 136 mmol/L (136-145); Total Bilirubin 0.4 mg/dL (0.15-1.2); Total Protein 5.1 g/dL (6.6-8.7)
[2021-09-28 14:33] LABS: KAPPA LIGHT CHAIN, FREE, SERUM 56.4 mg/L (3.3-19.4); KAPPA/LAMBDA LIGHT CHAINS FREE 3.15 (0.26-1.65); LAMBDA LIGHT CHAIN, FREE, SERU 17.9 mg/L (5.7-26.3)
== END 2021-09-27 06:46 | disposition home or self-care (01) ==
LOC: ONCMED 06:45
PROVIDERS: PCP Family Medicine; Visit Provider Internal Medicine Medical Oncology
DX: Z51.11 Encounter for antineoplastic chemotherapy (principal); C90.02 Multiple myeloma in relapse; D47.2 Monoclonal gammopathy; N18.6 End stage renal disease; Z99.2 Dependence on renal dialysis; I12.0 Hypertensive chronic kidney disease with stage 5 chronic kidney disease or end stage renal disease; D63.1 Anemia in chronic kidney disease; Z79.899 Other long term (current) drug therapy
CPT/HCPCS: 36591; 80053; 82784; 83883; 84155; 84165; 85025; 96401; J8540; J9041; Q0162

== ENCOUNTER 2021-10-08 12:46 | Outpatient (CLI) | payer MEDICARE, OTHER, SELFPAY ==
[2021-10-08 13:31] LABS: Eosinophils % 0.8 %; Hematocrit 28.6 % (42.0-52.0); Hemoglobin 9.5 g/dL (11.7-16.6); Lymphocytes # 0.2 10^3/uL (0.8-4.8); Lymphocytes % 5.9 %; Mean Corpuscular HGB Conc 33.2 g/dL (30.0-36.0); Mean Corpuscular Hemoglobin 39.7 pg (28.0-34.0); Mean Corpuscular Volume 119.7 fl (80-94); Monocytes # 0.4 10^3/uL (0.2-0.9); Monocytes % 9.6 %; Neutrophils # 3.13 10^3/uL (1.8-7.7); Neutrophils % 83.4 %; Nucleated Red Blood Cells % 0 %; Red Blood Count 2.39 10^6/uL (4.1-5.3); Red Cell Distribution Width 17.2 % (12.1-15.1); White Blood Count 3.8 10^3/uL (4.0-10.0)
[2021-10-08 13:49] LABS: Platelet Count 20 10^3/cmm (130-400)
[2021-10-08 14:02] LABS: Alanine Aminotransferase 17 U/L (0-41); Albumin Level 4.1 g/dL (3.5-5.2); Alkaline Phosphatase 104 IU/L (40-130); Anion Gap 16.1 (5-19); Aspartate Amino Transferase 14 U/L (0-40); Blood Urea Nitrogen 20 mg/dL (8-23); Calcium 7.8 mg/dL (8.5-10.5); Carbon Dioxide 30 mmol/L (22-29); Chloride 102 mmol/L (98-107); Globulin 1.4 g/dL (1.3-4.6); Glucose 124 mg/dL (65-115); Immunoglobulin IGA 202 mg/dL (70-400); Immunoglobulin IGG 431 mg/dL (700-1600); Osmolality Calculated 302 mOsm/kg (285-295); Potassium 4.1 mmol/L (3.5-5.1); Sodium 144 mmol/L (136-145); Total Bilirubin 0.8 mg/dL (0.15-1.2); Total Protein 5.5 g/dL (6.6-8.7)
[2021-10-08 14:27] LABS: Immunoglobulin IGM 21 mg/dL (40-230)
[2021-10-09 12:13] LABS: PROTEIN, TOTAL 5.5 g/dL (6.1-8.1)
[2021-10-09 14:08] LABS: KAPPA LIGHT CHAIN, FREE, SERUM 51.8 mg/L (3.3-19.4); KAPPA/LAMBDA LIGHT CHAINS FREE 2.42 (0.26-1.65); LAMBDA LIGHT CHAIN, FREE, SERU 21.4 mg/L (5.7-26.3)
[2021-10-09 16:07] LABS: ABNORMAL PROTEIN BAND 1 0.2 g/dL (NONE DETECTED); ABNORMAL PROTEIN BAND 2 0.1 g/dL (NONE DETECTED); ALBUMIN 3.6 g/dL (3.8-4.8); ALPHA 1 GLOBULIN 0.4 g/dL (0.2-0.3); ALPHA 2 GLOBULIN 0.6 g/dL (0.5-0.9); BETA 1 GLOBULIN 0.2 g/dL (0.4-0.6); BETA 2 GLOBULIN 0.2 g/dL (0.2-0.5); GAMMA GLOBULIN 0.5 g/dL (0.8-1.7)
== END 2021-10-08 12:47 | disposition home or self-care (01) ==
LOC: ONCMED 12:48
PROVIDERS: Internal Medicine Medical Oncology; PCP Family Medicine; Visit Provider Nurse Practitioner Family
DX: C90.00 Multiple myeloma not having achieved remission (principal); N18.6 End stage renal disease; Z99.2 Dependence on renal dialysis; D63.1 Anemia in chronic kidney disease; I12.0 Hypertensive chronic kidney disease with stage 5 chronic kidney disease or end stage renal disease; E78.5 Hyperlipidemia, unspecified; E11.22 Type 2 diabetes mellitus with diabetic chronic kidney disease; E11.42 Type 2 diabetes mellitus with diabetic polyneuropathy; N40.0 Benign prostatic hyperplasia without lower urinary tract symptoms; E03.9 Hypothyroidism, unspecified; Z79.899 Other long term (current) drug therapy; Z79.52 Long term (current) use of systemic steroids
CPT/HCPCS: 36591; 80053; 82784; 83883; 84155; 84165; 85025; 99215

== ENCOUNTER 2021-10-09 10:42 | Outpatient (CLI) | payer MEDICARE, OTHER, SELFPAY ==
[2021-10-09] MEDS: diphenhydrAMINE 25 mg Capsule PO (12:00)
[2021-10-09] MEDS: acetaminophen 325 mg Tablet 650 MG PO (12:00)
[2021-10-09 12:07] VITALS: BP 112/60; PULSE 76; RESP 18; TEMP 37.2; O2SAT 98
[2021-10-09 12:20] VITALS: BP 114/62; PULSE 76; RESP 18; TEMP 37.1; O2SAT 98
== END 2021-10-09 10:43 | disposition home or self-care (01) ==
LOC: ONCMED 10:47
PROVIDERS: PCP Family Medicine; Visit Provider Nurse Practitioner Family
DX: C90.02 Multiple myeloma in relapse (principal); D47.2 Monoclonal gammopathy; N18.6 End stage renal disease; Z99.2 Dependence on renal dialysis; D63.1 Anemia in chronic kidney disease; I12.0 Hypertensive chronic kidney disease with stage 5 chronic kidney disease or end stage renal disease; Z79.899 Other long term (current) drug therapy
CPT/HCPCS: 36430; 86900; P9053

== ENCOUNTER 2021-10-15 12:09 | Outpatient (CLI) | payer MEDICARE, OTHER, SELFPAY ==
[2021-10-15 13:17] LABS: Basophils % 0.5 %; Eosinophils # 0.1 10^3/uL (0.0-0.8); Eosinophils % 2.7 %; Hematocrit 31.3 % (42.0-52.0); Hemoglobin 10.4 g/dL (11.7-16.6); Lymphocytes # 0.2 10^3/uL (0.8-4.8); Mean Corpuscular HGB Conc 33.2 g/dL (30.0-36.0); Mean Corpuscular Volume 120.4 fl (80-94); Mean Platelet Volume 10.4 fL (7.4-10.4); Monocytes # 0.3 10^3/uL (0.2-0.9); Monocytes % 15.1 %; Neutrophils # 1.54 10^3/uL (1.8-7.7); Neutrophils % 70.2 %; Nucleated Red Blood Cells % 0 %; Platelet Count 40 10^3/cmm (130-400); Red Cell Distribution Width 17.3 % (12.1-15.1); White Blood Count 2.2 10^3/uL (4.0-10.0)
[2021-10-15 13:53] LABS: Alanine Aminotransferase 28 U/L (0-41); Albumin Level 4.5 g/dL (3.5-5.2); Alkaline Phosphatase 111 IU/L (40-130); Aspartate Amino Transferase 23 U/L (0-40); Blood Urea Nitrogen 23 mg/dL (8-23); Carbon Dioxide 30 mmol/L (22-29); Chloride 97 mmol/L (98-107); Globulin 1.8 g/dL (1.3-4.6); Glucose 107 mg/dL (65-115); Osmolality Calculated 294 mOsm/kg (285-295); Sodium 140 mmol/L (136-145); Total Bilirubin 0.6 mg/dL (0.15-1.2); Total Protein 6.3 g/dL (6.6-8.7)
[2021-10-15] MEDS: dexamethasone 4 mg Tablet 20 MG PO (14:57)
[2021-10-15] MEDS: ondansetron 4 MG Tablet 8 MG PO (14:57)
== END 2021-10-15 12:10 | disposition home or self-care (01) ==
LOC: ONCMED 12:10
PROVIDERS: Internal Medicine Medical Oncology; PCP Family Medicine; Visit Provider Nurse Practitioner Family
DX: Z51.12 Encounter for antineoplastic immunotherapy (principal); C90.00 Multiple myeloma not having achieved remission; I12.0 Hypertensive chronic kidney disease with stage 5 chronic kidney disease or end stage renal disease; E11.22 Type 2 diabetes mellitus with diabetic chronic kidney disease; N18.6 End stage renal disease; Z99.2 Dependence on renal dialysis; D63.1 Anemia in chronic kidney disease; E11.42 Type 2 diabetes mellitus with diabetic polyneuropathy; E78.5 Hyperlipidemia, unspecified; N40.0 Benign prostatic hyperplasia without lower urinary tract symptoms; E03.9 Hypothyroidism, unspecified; Z79.899 Other long term (current) drug therapy; Z79.4 Long term (current) use of insulin
CPT/HCPCS: 36591; 80053; 85025; 96401; 99215; J8540; J9041; Q0162

== ENCOUNTER 2021-10-18 13:03 | Outpatient (CLI) | payer MEDICARE, OTHER, SELFPAY ==
[2021-10-18] MEDS: dexamethasone 4 mg Tablet 20 MG PO (13:20)
[2021-10-18] MEDS: ondansetron 4 MG Tablet 8 MG PO (13:20)
== END 2021-10-18 13:04 | disposition home or self-care (01) ==
LOC: ONCMED 13:03
PROVIDERS: PCP Family Medicine; Visit Provider Internal Medicine Medical Oncology
DX: Z51.11 Encounter for antineoplastic chemotherapy (principal); C90.02 Multiple myeloma in relapse
CPT/HCPCS: 96401; J8540; J9041; Q0162

== ENCOUNTER 2021-10-22 12:39 | Outpatient (CLI) | payer MEDICARE, OTHER, SELFPAY ==
[2021-10-22 13:26] LABS: Basophils % 0.3 %; Eosinophils % 0.3 %; Hematocrit 32.9 % (42.0-52.0); Hemoglobin 11.1 g/dL (11.7-16.6); Lymphocytes # 0.3 10^3/uL (0.8-4.8); Lymphocytes % 8.5 %; Mean Corpuscular HGB Conc 33.7 g/dL (30.0-36.0); Mean Corpuscular Hemoglobin 38.9 pg (28.0-34.0); Mean Corpuscular Volume 115.4 fl (80-94); Monocytes # 0.4 10^3/uL (0.2-0.9); Monocytes % 13.7 %; Neutrophils # 2.36 10^3/uL (1.8-7.7); Neutrophils % 76.9 %; Nucleated Red Blood Cells # 0.1 /100WBC; Red Blood Count 2.85 10^6/uL (4.1-5.3); White Blood Count 3.1 10^3/uL (4.0-10.0)
[2021-10-22 13:33] LABS: Platelet Count 20 10^3/cmm (130-400)
== END 2021-10-22 12:40 | disposition home or self-care (01) ==
LOC: ONCMED 12:40
PROVIDERS: Internal Medicine Medical Oncology; PCP Family Medicine; Visit Provider Nurse Practitioner Family
DX: C90.00 Multiple myeloma not having achieved remission (principal)
CPT/HCPCS: 36591; 85025

== ENCOUNTER 2021-10-29 13:07 | Outpatient (CLI) | payer MEDICARE, OTHER, SELFPAY ==
[2021-10-29 14:39] LABS: Basophils % 0.4 %; Eosinophils % 0.7 %; Hematocrit 33.8 % (42.0-52.0); Hemoglobin 11.2 g/dL (11.7-16.6); Lymphocytes # 0.3 10^3/uL (0.8-4.8); Lymphocytes % 5.7 %; Mean Corpuscular HGB Conc 33.1 g/dL (30.0-36.0); Mean Corpuscular Hemoglobin 39.7 pg (28.0-34.0); Mean Corpuscular Volume 119.9 fl (80-94); Monocytes # 0.5 10^3/uL (0.2-0.9); Monocytes % 10.2 %; Neutrophils % 82.6 %; Nucleated Red Blood Cells % 0 %; Platelet Count 43 10^3/cmm (130-400); Red Blood Count 2.82 10^6/uL (4.1-5.3); Red Cell Distribution Width 17.6 % (12.1-15.1); White Blood Count 4.6 10^3/uL (4.0-10.0)
[2021-10-29 15:07] LABS: Alanine Aminotransferase 24 U/L (0-41); Albumin Level 3.9 g/dL (3.5-5.2); Alkaline Phosphatase 96 IU/L (40-130); Anion Gap 17.3 (5-19); Aspartate Amino Transferase 18 U/L (0-40); Blood Urea Nitrogen 28 mg/dL (8-23); Calcium 8.5 mg/dL (8.5-10.5); Carbon Dioxide 28 mmol/L (22-29); Chloride 99 mmol/L (98-107); Globulin 2.2 g/dL (1.3-4.6); Glucose 116 mg/dL (65-115); Osmolality Calculated 296 mOsm/kg (285-295); Potassium 4.3 mmol/L (3.5-5.1); Sodium 140 mmol/L (136-145); Total Bilirubin 0.7 mg/dL (0.15-1.2); Total Protein 6.1 g/dL (6.6-8.7)
[2021-10-29] MEDS: dexamethasone 4 mg Tablet 20 MG PO (15:45)
[2021-10-29] MEDS: ondansetron 4 MG Tablet 8 MG PO (15:45)
--- NOTE | 2021-10-29 16:21 | ONC FU_ITS ---
Mitzi Isabel Progress Note Patient: Larry Stephens Unit #: [id number]: 1945 Dicatated By: Mitzi Isabel N.P.Date of Visit:Oct 29, 2021 Onc MED Follow-up/Prog Note Chief Complaint: Multiple myeloma. History of Present Illness: This is a 75 year-old man with relapsed IgA kappa myeloma. He has associated end-stage renal disease and anemia. He had pre-existing hypertension, hyperlipidemia, and type II diabetes. He had developed stage III chronic kidney disease following a colonoscopy prep. He had been seeing Dr. Miguelangel Cha for his nephrology follow-up care, and he was then found to have evidence of IgA kappa monoclonal gammopathy in October 2010. He was initially seen here by Dr. Plasencia in September 2011. At that point his protein electrophoresis showed IgA kappa monoclonal protein quantitating at 1.3 g/dL with 0.2 g/dL of free kappa monoclonal protein. UPEP was reportedly unrevealing. Bone marrow aspiration/biopsy showed 12% plasma cells. 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 There was no evidence of lytic bone involvement. His baseline creatinine was 1.8 mg/dL. He was treated initially with 3 cycles of Velcade/dexamethasone between October and December 2011. He required a dose reduction in the Velcade due to neuropathy. His repeat bone marrow aspiration/biopsy at [facility] on 01/01/2012 showed increase in the plasma cells to 17%. He then continued treatment at [facility] with autologous peripheral stem cell transplant in January 2012, I assume with high-dose melphalan, though it is not stated in the available records. The procedure was complicated by sepsis and acute renal failure requiring hemodialysis. He had subsequent relapse of the myeloma. His further treatment included 10 cycles of carfilzomib and dexamethasone beginning in May 2015. It was changed to carfilzomib, Revlimid, and dexamethasone beginning in January 2016 due to disease progression. Following further disease progression, his treatment was transitioned to carfilzomib, pomalidomide, and dexamethasone. As of October 2016, due to progressive kidney disease concerning for progressive myeloma, his treatment was changed to daratumumab, Revlimid, and dexamethasone. The Revlimid and dexamethasone were subsequently omitted due to toxicities, and he then continued daratumumab as a single agent. It was administered on a monthly schedule. During this time his kidney function had progressed to end-stage renal disease, and he began on home peritoneal dialysis. He had been receiving treatment at [facility]. He was seen here in October 2017 because he desired to continue his further treatment locally. Following his initial visit he continued monthly daratumumab infusions with no apparent adverse effects and no obvious progression of the myeloma. His hemoglobin/hematocrit levels remained stable above transfusion thresholds. On 06/25/2018 he was seen in the emergency room with increasing weakness. On evaluation, he was found to have a low B12 level at 168 pg/mL, and his TSH level was found to be elevated at 13.500 mIU/mL. He started B12 injections, and he also started thyroid replacement. As of 07/22/2018 there was further decline in the hemoglobin to 8.6 g, and at that point he did start treatment with Procrit. He had a very good response with his hemoglobin increasing to 12.2 g after 2 weekly injections. As of October 2018 he had opted to be admitted to the assisted, and he then began hemodialysis. At that point his erythropoietin stimulating agent was changed to Mircera. He then became progressively more anemic. As of 12/02/2018 his hemoglobin had stabilized at 7.9 g. He then restarted Procrit on 12/17/2018. During this time, he also had continued his monthly daratumumab infusions. His anemia did improve after restarting the Procrit. During follow-up his clinical status had otherwise remained stable. His protein electrophoresis had continued to show a very small M protein spike. There had been no significant change in his serum free light chains. 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 He continued on his monthly daratumumab infusions. As of 12/09/2019 he received cycle 38 of daratumumab. He had been tolerating the treatment well and his clinical status had been stable. However, he had been showing a very gradual increase in his M protein, in the kappa free light chain, and in the kappa/lambda ratio. I had discussed options for further treatment, and we ultimately decided to just try adding back carfilzomib. He began cycle 1 of daratumumab in combination with carfilzomib and dexamethasone on 03/01/2020. He tolerated the day 1 and day 2 carfilzomib infusions without acute toxicity. He was then able to continue with his day 7/8 and day 15/16 carfilzomib infusions on schedule, but he was not able to tolerate any dose escalation due to moderately severe thrombocytopenia. He then continued monthly cycles of treatment with the carfilzomib dosage unchanged. He began cycle 6 on 08/02/2020. His repeat protein electrophoresis studies on 08/22/2020 showed further increase in his M protein to 2.0 g/dL compared to 1.2 g/dL on 02/22/2020. During that same time period his serum free light chain assay showed an increase in the kappa/lambda ratio from 10.52 to 60.22. With continued evidence of disease progression, the daratumumab/carfilzomib regimen was stopped. I had seen him for a follow-up visit on 09/13/2020, at that time I reviewed other treatment options. As he was not having any obvious symptoms associated with the myeloma, he preferred to just continue observation/expectant management. His medical illnesses, in addition to myeloma and renal failure, include hypertension, hyperlipidemia, type II diabetes with peripheral neuropathy, and benign prostatic hypertrophy. He is a nonsmoker. INTERIM HISTORY: As of his follow-up visit in October 2020 his repeat protein electrophoresis showed significant increase in his M protein to 3.0 g/dL. At that point he was still stable clinically and he preferred not to attempt any of the available salvage therapies due to concerns over their potential side effects. He had subsequently developed increased pain in his lower back and pelvic area. A CT of the lumbar spine on 10/03/2020 had shown evidence of acute compression fracture involving the superior endplate of the L2 vertebral body but with minimal loss of vertebral body height. There was annual bulging at L4-5 with moderate central canal stenosis and slight anterolisthesis. Further evaluation with CT of the pelvis on 10/23/2020 showed diffuse demineralization with vague lytic lesions throughout the pelvis and sacrum, suspicious for myeloma or possibly metastatic disease. There is no apparent fracture in the right hip but there was suspected pathologic fracture involving the right inferior pubic ramus with a lytic lesion measuring 2.1 x 1.8 cm. He had radiation oncology consultation with Dr. Delgado on 11/01/2020, and he was given palliative radiation to the right hip area. His clinical course was complicated by significant TRANSCRIPT EVALUATOR toxicity associated with opiate pain medication. He was able to complete his radiation on 11/07/2020 to a total dose of 800 cGy administered in a single fraction. He had a follow-up visit with Dr. Goncalves on 11/27/2020. At that time his right hip pain had improved, but he was reporting severe pain in the low back area. In the absence of any known lytic disease in that area, he was referred to pain management. He subsequently was given a lumbar medial branch block and cervical/thoracic medial branch block on 12/12/2020. In the meantime, we were able to get him approved for a trial of salvage therapy with melphalan flufenamide. He began cycle 1 on 11/29/2020. It was administered at reduced dosage because of his low baseline platelet count. During subsequent follow-up there was a significant further decline in the platelet count, to as low as 16,000, but he did not have any bleeding complications. He had gradual recovery. He continued with cycle 2 on 01/24/2021. At that point he was still having significant back pain, and his repeat MRI of the lumbar spine at that time showed multiple new compression fractures involving L3, L4, and L5 vertebral bodies. There was also new anterior wedging at T11 and T12. His follow-up serum protein electrophoresis on 02/21/2021 showed a significant decline in the M protein, to 0.1 g/dL. There was a moderate central canal stenosis noted at L4-5. MRI of the pelvis on 02/01/2021 showed innumerable enhancing myelomatous lesions throughout the lower thoracic spine, pelvis, sacrum, and proximal femurs. MRI of the thoracic spine on 02/13/2021 again showed diffuse heterogeneous enhancing myelomatous lesions throughout the thoracic spine. There were some small disc protrusions. There was no high-grade central canal stenosis. With those findings he was given additional palliative radiation from T12-S1, completed 02/07/2021 to a total dose of 1500 cGy administered in 5 fractions. As of his follow-up visit on 03/21/2021 he continued to have mild to moderately severe neutropenia and thrombocytopenia, but he had shown some recovery, and he continued with cycle 3 of melphalan flufenamide. His repeat protein electrophoresis showed stable M protein of 0.2 g/dL. On 04/20/2021 he underwent bilateral L4/5 laminectomy with partial facetectomies. He was given a platelet pheresis prophylactically, and he tolerated the procedure well. He continued with cycle 4 of melphalan flufenamide on 05/02/2021. On 05/24/2021 he underwent repair of left inguinal hernia with mesh and repair of umbilical hernia. He had no complications with the procedure. He continued with cycle 5 of melphalan flufenamide on 06/20/2021. His protein electrophoresis at that point showed his M protein stable at 0.1 g/dL. Patient presents today for follow-up. He had dialysis today so he is pretty tired. He has chronic back pain but has an appointment in [place] with pain management although I am not sure what date. He has been receiving Velcade on days 1, 4, 8, and 11 on a 28-day cycle. He has had problems on and off with thrombocytopenia. 1 platelet count is low around 20,000 patient has occasional nosebleeds. Review Of Symptoms:See above. Past Medical History: Benign prostatic hypertrophy End stage renal disease on home peritoneal dialysis Hyperlipidemia Hypertension Multiple myeloma Type II diabetes with peripheral neuropathy Past Surgical History: Colonoscopy Placement of peritoneal diaysis catheter Placement of portacath venous access device Bilateral L4/5 laminectomy in 2020 Covid vaccine #2 in 2020 Covid vaccine #1 in 2020 Fistula in left arm in 2019 Prevnar 13 in 2018 Cataract excision in 2016 Right inguinal hernia repair in 2007 Cholecystectomy in 1983 Allergies: Bactrim, Codeine Sulfate, Sulfa Antibiotics, TraMADol HCl, and Verapamil HCl. Medications: Acetaminophen 2 Tablet (of 325 mg) Oral four times a day PRN Acyclovir 1 Tablet (of 400 mg) Oral daily Albuterol Sulfate 1 Vial(s) (of (2.5 mg/3ml) 0.083%) Nebulization solution Inhalation t.i.d. PRN Albuterol Sulfate 1 Inhalation (of 108 (90 base) mcg/act) Aerosol Powder, Breath Activated Inhalation q 4 hours Allopurinol 1 Tablet (of 100 mg) Oral daily ALPRAZolam 1 Tablet (of 0.25 mg) Oral at bedtime amLODIPine Besylate 1 Tablet (of 2.5 mg) Oral daily Bisacodyl EC 2 Tablet (of 5 mg) Tablet, enteric coated Oral daily PRN Calcium Acetate 1 Capsule (of 667 mg) Oral t.i.d. Cipro 1 Tablet (of 500 mg) Oral b.i.d. Fluconazole 1 Tablet (of 100 mg) Oral daily Furosemide 1 Tablet (of 80 mg) Oral daily Gentamicin Sulfate 1 (0.1 %) Cream Topical at bedtime HYDROmorphone HCl 1 (2 mg) Tablet Oral four times a day PRN Levothyroxine Sodium 1 Tablet (of 50 mcg) Oral daily Loperamide HCl 1 - 2 Tablet (of 2 mg) Oral PRN Lovastatin 1 (40 mg) Tablet Oral at bedtime Metoprolol Succinate ER (25 mg) Tablet SR 24 HR Oral daily Mucinex 1 Tablet (of 600 mg) Tablet SR 12 HR Oral b.i.d. PRN Prochlorperazine Maleate 1 Tablet (of 10 mg) Oral q 6 hours PRN Renvela 3 (800 mg) Tablet Oral daily Requip 1 Tablet (of 0.5 mg) Oral b.i.d. Tamsulosin HCl 1 Tablet (of 0.4 mg) Capsule Oral b.i.d. Vital-D Rx 1 Tablet (of 1 mg) Oral daily Family History: Mr. Stephens's mother at age 82: Breast Cancer at age 70. Mr. Stephens's father at age 40. Mr. Stephens's maternal grandmother at age 80: cancer history consists of Breast cancer at age 80 (cause of ). Father at age 40, cause unknown to the patient. Mother of breast cancer at age 82. His maternal grandmother also had breast cancer. Social History: Mr. Stephens is and he is retired. Mr. Stephens has never smoked. He has no history of drinking. He is a nonsmoker. He does not drink alcohol. Physical Examination: Performed on Oct 29, 2021 15:58: Height - 69.00 in, Weight - 146.4 lbs (LOW), BSA - 1.81 sq.m, BMI - 21.62, Temperature - 98.4 F, Pulse - 69 /min, Respiration - 18 /min, BP - 117/69 mm(hg), O2 Sat - 99 %, Pain - 9, and Fatigue - 9. Performance Status: 2 - Ambulatory/capable of all self-care, unable to perform any work activities. Up and about more than 50% of waking hours. (ECOG) Constitutional Alert, cooperative, oriented. Mood and affect appropriate. Appears close to chronological age. Well nourished. Well developed. Head Normocephalic; no scars. Respiratory Lungs are clear to auscultation without rhonchi or wheezing. Cardiovascular Regular rate and rhythm of heart without murmurs, gallops or rubs. Abdomen Non-tender, non-distended, no masses, ascites or hepatosplenomegaly. Good bowel sounds. No guarding or rebound tenderness. Extremities No visible deformities, no cyanosis, clubbing or edema. Musculoskeletal No tenderness or swelling. Generalized weakness Psychiatric Alert and oriented times three. Coherent speech. Verbalizes understanding of our discussions today. Laboratory: Test performed on Oct 29, 2021 14:05 Sodium 140 mmol/L Potassium 4.3 mmol/L Chloride 99 mmol/L CO2 28 mmol/L Anion Gap 17.3 BUN 28 mg/dL Creatinine 3.7 mg/dL Cr Clearance (Est) 16.0500 mL/min Glucose 116 mg/dL Osmolality - Calculated 296 mOsm/kg Calcium 8.5 mg/dL Protein, Total 6.1 g/dL Albumin 3.9 g/dL Globulin 2.2 g/dL Bilirubin, Total 0.7 mg/dL ALT (SGPT) 24 U/L AST (SGOT) 18 U/L Alkaline Phosphatase 96 IU/L WBC 4.6 10 3/uL RBC 2.82 10 6/uL HGB 11.2 g/dL HCT 33.8 % MCV 119.9 fl MCH 39.7 pg MCHC 33.1 g/dL RDW 17.6 % Platelet Count 43 10 3/cmm Neutrophils 3.80 10 3/uL Lymphocytes 0.3 10 3/uL Monocytes 0.5 10 3/uL Eosinophils 0.0 10 3/uL Basophils 0.0 10 3/uL Neutrophil % 82.6 % Lymphocyte % 5.7 % Monocyte % 10.2 % Eosinophil % 0.7 % Basophils % 0.4 % NRBC % 0 % Test performed on Oct 15, 2021 12:56 MPV 10.4 fL Test performed on Oct 08, 2021 13:21 [place] Free Light Chains 51.8 mg/L Lambda Free Light Chains 21.4 mg/L IgA 202 mg/dL [place]/Lambda Free Ratio 2.42 Test performed on Sep 27, 2021 14:12 CBC Slide Review Slide Review Perform SLIDE REVIEW AGREES WITH AUTOMATED RESULTS Test performed on Sep 24, 2021 14:49 BUN/Creatinine Ratio 101 Absolute Value Test performed on Aug 13, 2021 14:25 Anti-D Positive Blood Type OP Antibody Screen (Gel) NEGATIVE Test performed on Jul 09, 2021 13:05 Irrad Leukoreduced Platelets [id number] OP PLTLRI TRANSFUSED 07/10/21 1401 Test performed on Jun 26, 2021 13:40 Manual Segs % 77 % Manual Bands % 12.0 % Manual Lymphs % 8 % Total Cells Counted 100 Manual Monos % 1.0 % Manual Eos % 2 % Hypochromia S Anisocytosis 2+ Macrocytosis 1+ Ovalocytes Trace Tear Drop Cells Trace Platelet Estimate Decreased Manual Segs Abs 2.1 10/cmm Manual Bands Abs 0.3 10 3/cmm Manual Neutrophils Abs 2.4 10 3/cmm Manual Monocytes Abs 0.0 10 3/cmm Manual Eosinophils Abs 0.0 10 3/cmm Test performed on Jun 12, 2021 11:00 IGG 478 mg/dL IGM 55 mg/dL Test performed on May 22, 2021 10:45 Irradiated Leuko Red RBC [id number] OP RCLRI ISSUED 05/23/21 1046 PLT Pheresis Irrad Leukoreduce [id number] OP IRPLT TRANSFUSED 05/23/21 1046 Impression: 1. IgA kappa myeloma, initially diagnosed in September 2011. 2. During follow-up he had progression to end-stage renal disease. He initially had started daily home peritoneal dialysis, but with subsequent transition to hemodialysis. 3. Anemia associated with end-stage renal disease. 4. Hypertension. 5. Hyperlipidemia. 6. Type II diabetes with peripheral neuropathy. 7. Benign prostatic hypertrophy. 8. Hypothyroidism. Plan: 1. Patient with IgA kappa myeloma, initially diagnosed in September 2011. His myeloma therapy included: 1. Velcade/dexamethasone for 3 cycles, completed December 2011. 2. High-dose melphalan/stem cell transplant in January 2012, complicated by sepsis and acute renal failure requiring hemodialysis. 3. Carfilzomib/dexamethasone for 10 cycles, completed May 2015. 4. Carfilzomib/Revlimid/dexamethasone beginning in January 2016. 5. Carfilzomib/pomalidomide/dexamethasone. 6. Daratumumab/Revlimid/dexamethasone beginning in October 2016. 7. Daratumumab monotherapy until January 2020. 8. Carfilzomib/daratumumab/dexamethasone from 03/01/2020 through 08/31/2020. He had been showing gradual disease progression since September 2019, but has a October 2020 there was a more significant increase in his M protein level, to 3.0 g/dL. He was initially not overtly symptomatic, but he subsequently developed symptomatic bone involvement in the pelvis. He had associated pathologic fracture. He was given palliative radiation to the right hip area, completed on 11/07/2020 to a total dose of 800 cGy administered in a single fraction. In the meantime, we were able to get approval for a trial of salvage therapy with melphalan flufenamide. He began cycle 1 on 11/29/2020. It was administered at a reduced dosage due to baseline thrombocytopenia. During followup his platelet count nadired at 16,000. He had no bleeding. His dory granulocyte count was 600. He had gradual recovery. He continued with cycle 2 on 01/24/2021. The treatment was again complicated by severe neutropenia and thrombocytopenia, requiring growth factor support with Neupogen and platelet pheresis. During subsequent follow-up he did show some recovery of his blood counts. He was able to continue with cycle 3 of melphalan flufenamide on 03/21/2021, with cycle 4 on 05/02/2021 and with cycle 5 on 06/20/2021. He presents today for follow-up. His labs were discussed. His platelet count has improved it is at 43,000 compared to 20,000 last week. His abnormal proteins have remained stable at 0.3 total. We will decrease Velcade to weekly to assist with his thrombocytopenia. Due to occasional nosebleeds related to thrombocytopenia, patient was offered a referral to ENT but declines. We will prescribe him Afrin nasal spray to be used as needed for the occasional nosebleed. Patient is to follow-up in 1 week and if labs are stable will receive Velcade. Signed By: Mitzi Isabel N.P. <<Signature on File>>
== END 2021-10-29 13:08 | disposition home or self-care (01) ==
LOC: ONCMED 13:08
PROVIDERS: PCP Family Medicine; Visit Provider Nurse Practitioner Family
DX: C90.02 Multiple myeloma in relapse (principal); I10 Essential (primary) hypertension; E78.5 Hyperlipidemia, unspecified; N19 Unspecified kidney failure; E11.40 Type 2 diabetes mellitus with diabetic neuropathy, unspecified; N40.0 Benign prostatic hyperplasia without lower urinary tract symptoms; D63.1 Anemia in chronic kidney disease; N18.6 End stage renal disease; D69.6 Thrombocytopenia, unspecified; Z99.2 Dependence on renal dialysis; Z79.899 Other long term (current) drug therapy
CPT/HCPCS: 80053; 85025; 96409; 99215; J8540; J9041; Q0162

== ENCOUNTER 2021-11-05 11:07 | Outpatient (CLI) | payer MEDICARE, OTHER, SELFPAY ==
[2021-11-05 11:54] LABS: Basophils % 0.4 %; Eosinophils % 1.5 %; Hematocrit 33.3 % (42.0-52.0); Hemoglobin 11.1 g/dL (11.7-16.6); Lymphocytes # 0.3 10^3/uL (0.8-4.8); Lymphocytes % 9.2 %; Mean Corpuscular HGB Conc 33.3 g/dL (30.0-36.0); Mean Corpuscular Hemoglobin 38.9 pg (28.0-34.0); Mean Corpuscular Volume 116.8 fl (80-94); Monocytes # 0.4 10^3/uL (0.2-0.9); Neutrophils # 2.03 10^3/uL (1.8-7.7); Neutrophils % 74.5 %; Nucleated Red Blood Cells % 0 %; Red Blood Count 2.85 10^6/uL (4.1-5.3); Red Cell Distribution Width 16.8 % (12.1-15.1); White Blood Count 2.7 10^3/uL (4.0-10.0)
[2021-11-05 12:01] LABS: Platelet Count 24 10^3/cmm (130-400)
[2021-11-05 12:35] LABS: Alanine Aminotransferase 32 U/L (0-41); Albumin Level 4.2 g/dL (3.5-5.2); Alkaline Phosphatase 108 IU/L (40-130); Anion Gap 18.4 (5-19); Aspartate Amino Transferase 19 U/L (0-40); Blood Urea Nitrogen 24 mg/dL (8-23); Calcium 7.3 mg/dL (8.5-10.5); Carbon Dioxide 29 mmol/L (22-29); Chloride 100 mmol/L (98-107); Globulin 1.6 g/dL (1.3-4.6); Glucose 91 mg/dL (65-115); Immunoglobulin IGA 348 mg/dL (70-400); Immunoglobulin IGG 380 mg/dL (700-1600); Osmolality Calculated 300 mOsm/kg (285-295); Potassium 4.4 mmol/L (3.5-5.1); Sodium 143 mmol/L (136-145); Total Bilirubin 0.6 mg/dL (0.15-1.2); Total Protein 5.8 g/dL (6.6-8.7)
[2021-11-05 12:54] LABS: Immunoglobulin IGM 20 mg/dL (40-230)
[2021-11-05 14:22] LABS: Iron 60 ug/dL (59-158); Percent Saturation 31.5 % (20-50); Total Iron Binding Capacity 190 mcg/dl; Unsaturated Iron Binding 130 ug/dL (112-347)
[2021-11-05 14:39] LABS: Vitamin B12 822 pg/mL (232-1245)
[2021-11-05 14:54] LABS: Folate Level > 20.0 ng/mL (4.5-32.2)
--- NOTE | 2021-11-05 18:56 | ONC FU_ITS ---
Dr. Pinto Patient Follow-Up Note Patient: Larry Stephens Unit #: [id number]: 1945 Dicatated By: Dustin Pinto M.D.Date of Visit:Nov 05, 2021 Onc Med Follow-up/Prog Note Chief Complaint: Multiple myeloma. History of Present Illness: This is a 76 year-old man with relapsed IgA kappa myeloma. He has associated end-stage renal disease and anemia. He had pre-existing hypertension, hyperlipidemia, and type II diabetes. He had developed stage III chronic kidney disease following a colonoscopy prep. He had been seeing Dr. Miguelangel Cha for his nephrology follow-up care, and he was then found to have evidence of IgA kappa monoclonal gammopathy in October 2010. He was initially seen here by Dr. Plasencia in September 2011. At that point his protein electrophoresis showed IgA kappa monoclonal protein quantitating at 1.3 g/dL with 0.2 g/dL of free kappa monoclonal protein. UPEP was reportedly unrevealing. Bone marrow aspiration/biopsy showed 12% plasma cells. 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 There was no evidence of lytic bone involvement. His baseline creatinine was 1.8 mg/dL. He was treated initially with 3 cycles of Velcade/dexamethasone between October and December 2011. He required a dose reduction in the Velcade due to neuropathy. His repeat bone marrow aspiration/biopsy at [facility] on 01/01/2012 showed increase in the plasma cells to 17%. He then continued treatment at [facility] with autologous peripheral stem cell transplant in January 2012, I assume with high-dose melphalan, though it is not stated in the available records. The procedure was complicated by sepsis and acute renal failure requiring hemodialysis. He had subsequent relapse of the myeloma. His further treatment included 10 cycles of carfilzomib and dexamethasone beginning in May 2015. It was changed to carfilzomib, Revlimid, and dexamethasone beginning in January 2016 due to disease progression. Following further disease progression, his treatment was transitioned to carfilzomib, pomalidomide, and dexamethasone. As of October 2016, due to progressive kidney disease concerning for progressive myeloma, his treatment was changed to daratumumab, Revlimid, and dexamethasone. The Revlimid and dexamethasone were subsequently omitted due to toxicities, and he then continued daratumumab as a single agent. It was administered on a monthly schedule. During this time his kidney function had progressed to end-stage renal disease, and he began on home peritoneal dialysis. He had been receiving treatment at [facility]. He was seen here in October 2017 because he desired to continue his further treatment locally. Following his initial visit he continued monthly daratumumab infusions with no apparent adverse effects and no obvious progression of the myeloma. His hemoglobin/hematocrit levels remained stable above transfusion thresholds. On 06/25/2018 he was seen in the emergency room with increasing weakness. On evaluation, he was found to have a low B12 level at 168 pg/mL, and his TSH level was found to be elevated at 13.500 mIU/mL. He started B12 injections, and he also started thyroid replacement. As of 07/22/2018 there was further decline in the hemoglobin to 8.6 g, and at that point he did start treatment with Procrit. He had a very good response with his hemoglobin increasing to 12.2 g after 2 weekly injections. As of October 2018 he had opted to be [facility] to the [facility], and he then began hemodialysis. At that point his erythropoietin stimulating agent was changed to Mircera. He then became progressively more anemic. As of 12/02/2018 his hemoglobin had stabilized at 7.9 g. He then restarted Procrit on 12/17/2018. During this time, he also had continued his monthly daratumumab infusions. His anemia did improve after restarting the Procrit. During follow-up his clinical status had otherwise remained stable. His protein electrophoresis had continued to show a very small M protein spike. There had been no significant change in his serum free light chains. 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 He continued on his monthly daratumumab infusions. As of 12/09/2019 he received cycle 38 of daratumumab. He had been tolerating the treatment well and his clinical status had been stable. However, he had been showing a very gradual increase in his M protein, in the kappa free light chain, and in the kappa/lambda ratio. I had discussed options for further treatment, and we ultimately decided to just try adding back carfilzomib. He began cycle 1 of daratumumab in combination with carfilzomib and dexamethasone on 03/01/2020. He tolerated the day 1 and day 2 carfilzomib infusions without acute toxicity. He was then able to continue with his day 7/8 and day 15/16 carfilzomib infusions on schedule, but he was not able to tolerate any dose escalation due to moderately severe thrombocytopenia. He then continued monthly cycles of treatment with the carfilzomib dosage unchanged. He began cycle 6 on 08/02/2020. His repeat protein electrophoresis studies on 08/22/2020 showed further increase in his M protein to 2.0 g/dL compared to 1.2 g/dL on 02/22/2020. During that same time period his serum free light chain assay showed an increase in the kappa/lambda ratio from 10.52 to 60.22. With continued evidence of disease progression, the daratumumab/carfilzomib regimen was stopped. I had seen him for a follow-up visit on 09/13/2020, at that time I reviewed other treatment options. As he was not having any obvious symptoms associated with the myeloma, he preferred to just continue observation/expectant management. His medical illnesses, in addition to myeloma and renal failure, include hypertension, hyperlipidemia, type II diabetes with peripheral neuropathy, and benign prostatic hypertrophy. He is a nonsmoker. INTERIM HISTORY: As of his follow-up visit in October 2020 his repeat protein electrophoresis showed significant increase in his M protein to 3.0 g/dL. At that point he was still stable clinically and he preferred not to attempt any of the available salvage therapies due to concerns over their potential side effects. He had subsequently developed increased pain in his lower back and pelvic area. A CT of the lumbar spine on 10/03/2020 had shown evidence of acute compression fracture involving the superior endplate of the L2 vertebral body but with minimal loss of vertebral body height. There was annual bulging at L4-5 with moderate central canal stenosis and slight anterolisthesis. Further evaluation with CT of the pelvis on 10/23/2020 showed diffuse demineralization with vague lytic lesions throughout the pelvis and sacrum, suspicious for myeloma or possibly metastatic disease. There is no apparent fracture in the right hip but there was suspected pathologic fracture involving the right inferior pubic ramus with a lytic lesion measuring 2.1 x 1.8 cm. He had radiation oncology consultation with Dr. Delgado on 11/01/2020, and he was given palliative radiation to the right hip area. His clinical course was complicated by significant [employer] toxicity associated with opiate pain medication. He was able to complete his radiation on 11/07/2020 to a total dose of 800 cGy administered in a single fraction. He had a follow-up visit with Dr. Goncalves on 11/27/2020. At that time his right hip pain had improved, but he was reporting severe pain in the low back area. In the absence of any known lytic disease in that area, he was referred to pain management. He subsequently was given a lumbar medial branch block and cervical/thoracic medial branch block on 12/12/2020. In the meantime, we were able to get him approved for a trial of salvage therapy with melphalan flufenamide. He began cycle 1 on 11/29/2020. It was administered at reduced dosage because of his low baseline platelet count. During subsequent follow-up there was a significant further decline in the platelet count, to as low as 16,000, but he did not have any bleeding complications. He had gradual recovery. He continued with cycle 2 on 01/24/2021. At that point he was still having significant back pain, and his repeat MRI of the lumbar spine at that time showed multiple new compression fractures involving L3, L4, and L5 vertebral bodies. There was also new anterior wedging at T11 and T12. His follow-up serum protein electrophoresis on 02/21/2021 showed a significant decline in the M protein, to 0.1 g/dL. There was a moderate central canal stenosis noted at L4-5. MRI of the pelvis on 02/01/2021 showed innumerable enhancing myelomatous lesions throughout the lower thoracic spine, pelvis, sacrum, and proximal femurs. MRI of the thoracic spine on 02/13/2021 again showed diffuse heterogeneous enhancing myelomatous lesions throughout the thoracic spine. There were some small disc protrusions. There was no high-grade central canal stenosis. With those findings he was given additional palliative radiation from T12-S1, completed 02/07/2021 to a total dose of 1500 cGy administered in 5 fractions. As of his follow-up visit on 03/21/2021 he continued to have mild to moderately severe neutropenia and thrombocytopenia, but he had shown some recovery, and he continued with cycle 3 of melphalan flufenamide. His repeat protein electrophoresis showed stable M protein of 0.2 g/dL. On 04/20/2021 he underwent bilateral L4/5 laminectomy with partial facetectomies. He was given a platelet pheresis prophylactically, and he tolerated the procedure well. He continued with cycle 4 of melphalan flufenamide on 05/02/2021. On 05/24/2021 he underwent repair of left inguinal hernia with mesh and repair of umbilical hernia. He had no complications with the procedure. He continued with cycle 5 of melphalan flufenamide on 06/20/2021. His protein electrophoresis at that point showed his M protein stable at 0.1 g/dL. At his follow-up visit on 08/23/2021 his treatment remained on hold due to persistent neutropenia and thrombocytopenia. His protein electrophoresis still showed stable M protein at 0.2 g/dL, but with the blood counts persistently low, he was given the option to have a trial of therapy with Velcade. He began cycle 1 on 09/17/2021, administered on days 1, 4, 8, and 11. He tolerated that well, and he continued with cycle 2 on 10/15/2021. Treatment was put on hold at day 8 of cycle 2 with his platelet count decreased to 20,000. He was then able to continue with cycle 3 on 10/29/2021, but with the Velcade administered weekly. He is seen for a follow-up visit. His main complaint is that his fatigue level is just shot, to the point that he can hardly get up. He says he does does not want to do anything now. He thinks some of this may just be associated with depression due to restrictions imposed by the coronavirus pandemic. His ECOG score is 3. His appetite is okay. He does not have fever or night sweats. He has not had sore mouth or throat. He does not complain of cough, and he has not been having shortness of breath or chest pain. He had some diarrhea recently associated with antibiotic therapy. He has no other GI complaints. He has very little urine output now. He continues to have back pain, and he is scheduled to see a neurosurgeon in [place] tomorrow. In the meantime, he has been getting physical [facility] at the [facility]. He does not complain of headache or dizziness. He has a little numbness in his feet. Medications: Acetaminophen 2 Tablet (of 325 mg) Oral four times a day PRN, Acyclovir 1 Tablet (of 400 mg) Oral daily, Albuterol Sulfate 1 Vial(s) (of (2.5 mg/3ml) 0.083%) Nebulization solution Inhalation t.i.d. PRN, Albuterol Sulfate 1 Inhalation (of 108 (90 base) mcg/act) Aerosol Powder, Breath Activated Inhalation q 4 hours, Allopurinol 1 Tablet (of 100 mg) Oral daily, ALPRAZolam 1 Tablet (of 0.25 mg) Oral at bedtime, amLODIPine Besylate 1 Tablet (of 2.5 mg) Oral daily, Bisacodyl EC 2 Tablet (of 5 mg) Tablet, enteric coated Oral daily PRN, Calcium Acetate 1 Capsule (of 667 mg) Oral t.i.d., Cipro 1 Tablet (of 500 mg) Oral b.i.d., Fluconazole 1 Tablet (of 100 mg) Oral daily, Furosemide 1 Tablet (of 80 mg) Oral daily, Gentamicin Sulfate 1 (0.1 %) Cream Topical at bedtime, HYDROmorphone HCl 1 (2 mg) Tablet Oral four times a day PRN, Levothyroxine Sodium 1 Tablet (of 50 mcg) Oral daily, Loperamide HCl 1 - 2 Tablet (of 2 mg) Oral PRN, Lovastatin 1 (40 mg) Tablet Oral at bedtime, Metoprolol Succinate ER (25 mg) Tablet SR 24 HR Oral daily, Mucinex 1 Tablet (of 600 mg) Tablet SR 12 HR Oral b.i.d. PRN, Prochlorperazine Maleate 1 Tablet (of 10 mg) Oral q 6 hours PRN, Renvela 3 (800 mg) Tablet Oral daily, Requip 1 Tablet (of 0.5 mg) Oral b.i.d., Tamsulosin HCl 1 Tablet (of 0.4 mg) Capsule Oral b.i.d., Vital-D Rx 1 Tablet (of 1 mg) Oral daily Allergies: Bactrim, Codeine Sulfate, Sulfa Antibiotics, TraMADol HCl, and Verapamil HCl. Vital Signs: Performed on Nov 05, 2021 13:00 Height - 69.00 in Weight - 146.8 lbs (HIGH) BSA - 1.81 sq.m BMI - 21.68 Temperature - 97.9 F (LOW) Pulse - 65 /min Respiration - 18 /min BP - 135/63 mm(hg) O2 Sat - 99 % Pain - 7 Fatigue - 9 Physical Examination: Constitutional - He appears generally weak, Eyes - There is a small scleral hemorrhage on the right. He is nonicteric. Conjunctivae clear, ENMT - No lesions noted in the oral cavity, Hematologic/Lymphatic - No cervical, clavicular, or axillary adenopathy, Respiratory - Lungs sound clear with good air movement bilaterally, Cardiovascular - Heart rhythm is regular. There is a II/ systolic murmur. There is no gallop or rub noted, Abdomen - Soft. Liver and spleen are not enlarged. There is no abdominal mass or ascites noted and there is no inguinal adenopathy, Extremities - No edema. He has extensive purpura, Neurologic - No focal neurologic deficits noted. Lab/Imaging: Test performed on Nov 05, 2021 11:40 Folate, Serum > 20.0 ng/mL Iron 60 mcg/dL Sodium 143 mmol/L Vitamin B12 822 pg/mL Iron Binding Capacity (TIBC) 190 mcg/dl Potassium 4.4 mmol/L % Iron Saturation 31.5 % Chloride 100 mmol/L CO2 29 mmol/L UIBC 130 mcg/dL Anion Gap 18.4 BUN 24 mg/dL Creatinine 3.0 mg/dL Cr Clearance (Est) 19.7900 mL/min Glucose 91 mg/dL Osmolality - Calculated 300 mOsm/kg Calcium 7.3 mg/dL Protein, Total 5.8 g/dL Albumin 4.2 g/dL Globulin 1.6 g/dL Bilirubin, Total 0.6 mg/dL ALT (SGPT) 32 U/L AST (SGOT) 19 U/L Alkaline Phosphatase 108 IU/L WBC 2.7 10 3/uL RBC 2.85 10 6/uL HGB 11.1 g/dL HCT 33.3 % MCV 116.8 fl MCH 38.9 pg MCHC 33.3 g/dL RDW 16.8 % Platelet Count 24 10 3/cmm MPV 10.0 fL Neutrophils 2.03 10 3/uL Lymphocytes 0.3 10 3/uL Monocytes 0.4 10 3/uL Eosinophils 0.0 10 3/uL Basophils 0.0 10 3/uL Neutrophil % 74.5 % Lymphocyte % 9.2 % Monocyte % 14.0 % Eosinophil % 1.5 % Basophils % 0.4 % NRBC % 0 % IgA 348 mg/dL Problem List: 1. IgA kappa myeloma, initially diagnosed in September 2011. 2. During follow-up he had progression to end-stage renal disease. He initially had started daily home peritoneal dialysis, but with subsequent transition to hemodialysis. 3. Anemia associated with end-stage renal disease. 4. Hypertension. 5. Hyperlipidemia. 6. Type II diabetes with peripheral neuropathy. 7. Benign prostatic hypertrophy. 8. Hypothyroidism. Problems Addressed with this Encounter and Plan: 1. Patient with IgA kappa myeloma, initially diagnosed in September 2011. His myeloma therapy included: 1. Velcade/dexamethasone for 3 cycles, completed December 2011. 2. High-dose melphalan/stem cell transplant in January 2012, complicated by sepsis and acute renal failure requiring hemodialysis. 3. Carfilzomib/dexamethasone for 10 cycles, completed May 2015. 4. Carfilzomib/Revlimid/dexamethasone beginning in January 2016. 5. Carfilzomib/pomalidomide/dexamethasone. 6. Daratumumab/Revlimid/dexamethasone beginning in October 2016. 7. Daratumumab monotherapy until January 2020. 8. Carfilzomib/daratumumab/dexamethasone from 03/01/2020 through 08/31/2020. He had been showing gradual disease progression since September 2019, but has a October 2020 there was a more significant increase in his M protein level, to 3.0 g/dL. He was initially not overtly symptomatic, but he subsequently developed symptomatic bone involvement in the pelvis. He had associated pathologic fracture. He was given palliative radiation to the right hip area, completed on 11/07/2020 to a total dose of 800 cGy administered in a single fraction. In the meantime, we were able to get approval for a trial of salvage therapy with melphalan flufenamide. He began cycle 1 on 11/29/2020. It was administered at a reduced dosage due to baseline thrombocytopenia. During followup his platelet count nadired at 16,000. He had no bleeding. His dory granulocyte count was 600. He had gradual recovery. He continued with cycle 2 on 01/24/2021. The treatment was again complicated by severe neutropenia and thrombocytopenia, requiring growth factor support with Neupogen and platelet pheresis. During subsequent follow-up he did show some recovery of his blood counts. He was able to continue with cycle 3 of melphalan flufenamide on 03/21/2021, with cycle 4 on 05/02/2021 and with cycle 5 on 06/20/2021. During follow-up his protein electrophoresis studies did significant improvement, indicative of response, but due to persistent pancytopenia the melphalan flufenamide remianed on hold. In September 2021 he was given the option to have a trial of therapy with Velcade. He began cycle 1 on 09/17/2021, administered on days 1, 4, 8, and 11. He tolerated that well. He began cycle 2 on 10/15/2021. His protein electrophoresis at that point showed stable M protein at 0.2 g/dL. However, at day 8 of cycle 2 his treatment was put on hold due to a drop in his platelet count to 20,000. He then began cycle 3 on 10/29/2021 with the Velcade administered weekly. He is now at day 8 of cycle 3. From an objective standpoint, there has been no obvious progression of the myeloma, but he continues to have issues with his blood counts, and his treatment will again be deferred with his platelet count back down to 24,000. He also appears to be showing significant decline in his performance status. I am not entirely certain of the cause for this. Some component may be associated with depression, but he does not want to try taking an antidepressant. He will be scheduled to return in 1 week. If he has had adequate recovery of the platelet count, I will then continue the Velcade at a 2-week dosing interval. 2. He has significant pain in his lower back. Management has been problematic due to very poor tolerance for opiate pain medication. His previous CT of the lumbar spine did show no obvious lytic lesions, but there were vertebral compression fractures. He ultimately did receive palliative radiation to the lumbar spine, completed on 02/07/2021. He underwent bilateral L4/5 laminectomy on 04/20/2021. During subsequent follow-up he has continued to have lower back pain which is significant enough to limit his activity. He is now seeing a neurosurgeon in [place] for further management. Signed By: Dustin Pinto M.D. <<Signature on File>>
[2021-11-06 12:16] LABS: PROTEIN, TOTAL 5.7 g/dL (6.1-8.1)
[2021-11-06 16:43] LABS: ABNORMAL PROTEIN BAND 1 0.3 g/dL (NONE DETECTED); ABNORMAL PROTEIN BAND 2 0.2 g/dL (NONE DETECTED); ALBUMIN 3.8 g/dL (3.8-4.8); ALPHA 1 GLOBULIN 0.3 g/dL (0.2-0.3); ALPHA 2 GLOBULIN 0.6 g/dL (0.5-0.9); BETA 1 GLOBULIN 0.3 g/dL (0.4-0.6); BETA 2 GLOBULIN 0.2 g/dL (0.2-0.5); GAMMA GLOBULIN 0.6 g/dL (0.8-1.7)
[2021-11-06 18:17] LABS: KAPPA LIGHT CHAIN, FREE, SERUM 52.1 mg/L (3.3-19.4); KAPPA/LAMBDA LIGHT CHAINS FREE 2.74 (0.26-1.65)
== END 2021-11-05 11:08 | disposition home or self-care (01) ==
LOC: ONCMED 11:09
PROVIDERS: PCP Family Medicine; Visit Provider Internal Medicine Medical Oncology
DX: C90.02 Multiple myeloma in relapse (principal); D63.1 Anemia in chronic kidney disease; N18.6 End stage renal disease; I10 Essential (primary) hypertension; E78.5 Hyperlipidemia, unspecified; E11.9 Type 2 diabetes mellitus without complications; N40.0 Benign prostatic hyperplasia without lower urinary tract symptoms; E03.9 Hypothyroidism, unspecified; Z99.2 Dependence on renal dialysis; M54.50 Low back pain, unspecified
CPT/HCPCS: 36591; 80053; 82607; 82746; 82784; 83540; 83550; 83883; 84155; 84165; 85025; 99214

== ENCOUNTER 2021-11-12 12:40 | Outpatient (CLI) | payer MEDICARE, OTHER, SELFPAY ==
[2021-11-12 12:58] LABS: Basophils % 0.2 %; Hematocrit 33.3 % (42.0-52.0); Hemoglobin 11.1 g/dL (11.7-16.6); Lymphocytes # 0.3 10^3/uL (0.8-4.8); Lymphocytes % 4.2 %; Mean Corpuscular HGB Conc 33.3 g/dL (30.0-36.0); Mean Corpuscular Hemoglobin 38.1 pg (28.0-34.0); Mean Corpuscular Volume 114.4 fl (80-94); Mean Platelet Volume 9.9 fL (7.4-10.4); Monocytes # 0.5 10^3/uL (0.2-0.9); Monocytes % 8.5 %; Neutrophils # 5.53 10^3/uL (1.8-7.7); Neutrophils % 86.6 %; Nucleated Red Blood Cells % 0 %; Platelet Count 51 10^3/cmm (130-400); Red Blood Count 2.91 10^6/uL (4.1-5.3); Red Cell Distribution Width 15.7 % (12.1-15.1); White Blood Count 6.4 10^3/uL (4.0-10.0)
[2021-11-12] MEDS: dexamethasone 4 mg Tablet 20 MG PO (14:45)
[2021-11-12] MEDS: ondansetron 2 mg/ML SDV 2 mL 8 MG IV (16:21)
== END 2021-11-12 12:41 | disposition home or self-care (01) ==
PROVIDERS: PCP Family Medicine; Visit Provider Internal Medicine Medical Oncology
DX: Z51.11 Encounter for antineoplastic chemotherapy (principal); C90.00 Multiple myeloma not having achieved remission; N18.6 End stage renal disease; D63.1 Anemia in chronic kidney disease; I10 Essential (primary) hypertension; E78.5 Hyperlipidemia, unspecified; E11.42 Type 2 diabetes mellitus with diabetic polyneuropathy; N40.0 Benign prostatic hyperplasia without lower urinary tract symptoms; E03.9 Hypothyroidism, unspecified; Z79.899 Other long term (current) drug therapy
CPT/HCPCS: 36591; 85025; 96401; J2405; J8540; J9041

== ENCOUNTER 2021-11-19 12:37 | Outpatient (CLI) | payer MEDICARE, OTHER, SELFPAY ==
[2021-11-19 13:13] LABS: Eosinophils % 0.2 %; Hematocrit 33.7 % (42.0-52.0); Hemoglobin 11.5 g/dL (11.7-16.6); Lymphocytes # 0.4 10^3/uL (0.8-4.8); Lymphocytes % 3.8 %; Mean Corpuscular HGB Conc 34.1 g/dL (30.0-36.0); Mean Corpuscular Hemoglobin 39.2 pg (28.0-34.0); Monocytes # 0.6 10^3/uL (0.2-0.9); Monocytes % 6.3 %; Neutrophils # 8.15 10^3/uL (1.8-7.7); Neutrophils % 88.9 %; Nucleated Red Blood Cells % 0.2 %; Platelet Count 45 10^3/cmm (130-400); Red Blood Count 2.93 10^6/uL (4.1-5.3); Red Cell Distribution Width 16.7 % (12.1-15.1); White Blood Count 9.2 10^3/uL (4.0-10.0)
== END 2021-11-19 12:38 | disposition home or self-care (01) ==
LOC: ONCMED 12:38
PROVIDERS: PCP Family Medicine; Visit Provider Internal Medicine Medical Oncology
DX: C90.00 Multiple myeloma not having achieved remission (principal); Z45.2 Encounter for adjustment and management of vascular access device
CPT/HCPCS: 36591; 85025

== ENCOUNTER 2021-11-26 12:33 | Outpatient (CLI) | payer MEDICARE, OTHER, SELFPAY ==
[2021-11-26 13:24] LABS: Eosinophils % 0.4 %; Hematocrit 34.3 % (42.0-52.0); Hemoglobin 11.4 g/dL (11.7-16.6); Lymphocytes # 0.4 10^3/uL (0.8-4.8); Mean Corpuscular HGB Conc 33.2 g/dL (30.0-36.0); Mean Corpuscular Volume 114.3 fl (80-94); Mean Platelet Volume 10.1 fL (7.4-10.4); Monocytes # 0.5 10^3/uL (0.2-0.9); Monocytes % 6.6 %; Neutrophils # 6.12 10^3/uL (1.8-7.7); Neutrophils % 87.6 %; Nucleated Red Blood Cells % 0 %; Platelet Count 46 10^3/cmm (130-400); Red Cell Distribution Width 16.8 % (12.1-15.1)
[2021-11-26] MEDS: ondansetron 4 MG Tablet 8 MG PO (14:30)
[2021-11-26] MEDS: dexamethasone 4 mg Tablet 20 MG PO (14:30)
== END 2021-11-26 12:34 | disposition home or self-care (01) ==
LOC: ONCMED 12:34
PROVIDERS: PCP Family Medicine; Visit Provider Internal Medicine Medical Oncology
DX: Z51.11 Encounter for antineoplastic chemotherapy (principal); C90.02 Multiple myeloma in relapse; N18.6 End stage renal disease; D63.1 Anemia in chronic kidney disease; I10 Essential (primary) hypertension; E78.5 Hyperlipidemia, unspecified; E11.9 Type 2 diabetes mellitus without complications; G62.9 Polyneuropathy, unspecified; E03.9 Hypothyroidism, unspecified; Z79.899 Other long term (current) drug therapy
CPT/HCPCS: 36591; 85025; 96372; 96401; J8540; J9041; Q0162

== ENCOUNTER 2021-12-03 12:51 | Outpatient (CLI) | payer MEDICARE, OTHER, SELFPAY ==
[2021-12-03 13:24] LABS: Basophils % 0.2 %; Eosinophils % 0.8 %; Hemoglobin 11.7 g/dL (11.7-16.6); Lymphocytes # 0.4 10^3/uL (0.8-4.8); Lymphocytes % 8.9 %; Mean Corpuscular HGB Conc 33.4 g/dL (30.0-36.0); Mean Corpuscular Hemoglobin 39.1 pg (28.0-34.0); Mean Corpuscular Volume 117.1 fl (80-94); Monocytes # 0.4 10^3/uL (0.2-0.9); Monocytes % 8.5 %; Neutrophils # 3.89 10^3/uL (1.8-7.7); Nucleated Red Blood Cells % 0 %; Red Blood Count 2.99 10^6/uL (4.1-5.3); Red Cell Distribution Width 17.5 % (12.1-15.1); White Blood Count 4.8 10^3/uL (4.0-10.0)
[2021-12-03 13:48] LABS: Platelet Count 26 10^3/cmm (130-400); Slide Review Slide Review Perform
== END 2021-12-03 12:52 | disposition home or self-care (01) ==
PROVIDERS: PCP Family Medicine; Visit Provider Internal Medicine Medical Oncology
DX: C90.02 Multiple myeloma in relapse (principal); N18.6 End stage renal disease; D63.1 Anemia in chronic kidney disease; I10 Essential (primary) hypertension; E78.5 Hyperlipidemia, unspecified; E11.9 Type 2 diabetes mellitus without complications; G62.9 Polyneuropathy, unspecified; E03.9 Hypothyroidism, unspecified; Z79.899 Other long term (current) drug therapy
CPT/HCPCS: 36591; 85025

== ENCOUNTER 2021-12-10 11:40 | Outpatient (CLI) | payer MEDICARE, OTHER, SELFPAY ==
[2021-12-10 12:33] LABS: Basophils % 0.3 %; Eosinophils % 1.1 %; Hematocrit 32.1 % (42.0-52.0); Hemoglobin 10.7 g/dL (11.7-16.6); Lymphocytes # 0.4 10^3/uL (0.8-4.8); Lymphocytes % 11.8 %; Mean Corpuscular HGB Conc 33.3 g/dL (30.0-36.0); Mean Corpuscular Hemoglobin 38.2 pg (28.0-34.0); Mean Corpuscular Volume 114.6 fl (80-94); Mean Platelet Volume 9.9 fL (7.4-10.4); Monocytes # 0.4 10^3/uL (0.2-0.9); Monocytes % 10.9 %; Neutrophils # 2.69 10^3/uL (1.8-7.7); Neutrophils % 75.3 %; Nucleated Red Blood Cells % 0 %; Platelet Count 41 10^3/cmm (130-400); Red Cell Distribution Width 16.3 % (12.1-15.1); White Blood Count 3.6 10^3/uL (4.0-10.0)
[2021-12-10] MEDS: dexamethasone 4 mg Tablet 20 MG PO (13:35)
[2021-12-10] MEDS: ondansetron 4 MG Tablet 8 MG PO (13:35)
[2021-12-10 13:49] LABS: Alanine Aminotransferase 47 U/L (0-41); Albumin Level 4.5 g/dL (3.5-5.2); Alkaline Phosphatase 98 IU/L (40-130); Anion Gap 18.4 (5-19); Aspartate Amino Transferase 27 U/L (0-40); Blood Urea Nitrogen 31 mg/dL (8-23); Calcium 9.1 mg/dL (8.5-10.5); Carbon Dioxide 30 mmol/L (22-29); Chloride 96 mmol/L (98-107); Globulin 1.9 g/dL (1.3-4.6); Glucose 106 mg/dL (65-115); Immunoglobulin IGA 642 mg/dL (70-400); Immunoglobulin IGG 390 mg/dL (700-1600); Immunoglobulin IGM 25 mg/dL (40-230); Osmolality Calculated 297 mOsm/kg (285-295); Potassium 4.4 mmol/L (3.5-5.1); Sodium 140 mmol/L (136-145); Total Bilirubin 0.7 mg/dL (0.15-1.2); Total Protein 6.4 g/dL (6.6-8.7)
--- NOTE | 2021-12-11 06:10 | ONC FU_ITS ---
Dr. Pinto Patient Follow-Up Note Patient: Larry Stephens Unit #: [id number]: 1945 Dicatated By: Dustin Pinto M.D.Date of Visit:Dec 10, 2021 Onc Med Follow-up/Prog Note Chief Complaint: Multiple myeloma. History of Present Illness: This is a 76 year-old man with relapsed IgA kappa myeloma. He has associated end-stage renal disease and anemia. He had pre-existing hypertension, hyperlipidemia, and type II diabetes. He had developed stage III chronic kidney disease following a colonoscopy prep. He had been seeing Dr. Miguelangel Cha for his nephrology follow-up care, and he was then found to have evidence of IgA kappa monoclonal gammopathy in October 2010. He was initially seen here by Dr. Plasencia in September 2011. At that point his protein electrophoresis showed IgA kappa monoclonal protein quantitating at 1.3 g/dL with 0.2 g/dL of free kappa monoclonal protein. UPEP was reportedly unrevealing. Bone marrow aspiration/biopsy showed 12% plasma cells. 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 There was no evidence of lytic bone involvement. His baseline creatinine was 1.8 mg/dL. He was treated initially with 3 cycles of Velcade/dexamethasone between October and December 2011. He required a dose reduction in the Velcade due to neuropathy. His repeat bone marrow aspiration/biopsy at [facility] on 01/01/2012 showed increase in the plasma cells to 17%. He then continued treatment at [facility] with autologous peripheral stem cell transplant in January 2012, I assume with high-dose melphalan, though it is not stated in the available records. The procedure was complicated by sepsis and acute renal failure requiring hemodialysis. He had subsequent relapse of the myeloma. His further treatment included 10 cycles of carfilzomib and dexamethasone beginning in May 2015. It was changed to carfilzomib, Revlimid, and dexamethasone beginning in January 2016 due to disease progression. Following further disease progression, his treatment was transitioned to carfilzomib, pomalidomide, and dexamethasone. As of October 2016, due to progressive kidney disease concerning for progressive myeloma, his treatment was changed to daratumumab, Revlimid, and dexamethasone. The Revlimid and dexamethasone were subsequently omitted due to toxicities, and he then continued daratumumab as a single agent. It was administered on a monthly schedule. During this time his kidney function had progressed to end-stage renal disease, and he began on home peritoneal dialysis. He had been receiving treatment at [facility]. He was seen here in October 2017 because he desired to continue his further treatment locally. Following his initial visit he continued monthly daratumumab infusions with no apparent adverse effects and no obvious progression of the myeloma. His hemoglobin/hematocrit levels remained stable above transfusion thresholds. On 06/25/2018 he was seen in the emergency room with increasing weakness. On evaluation, he was found to have a low B12 level at 168 pg/mL, and his TSH level was found to be elevated at 13.500 mIU/mL. He started B12 injections, and he also started thyroid replacement. As of 07/22/2018 there was further decline in the hemoglobin to 8.6 g, and at that point he did start treatment with Procrit. He had a very good response with his hemoglobin increasing to 12.2 g after 2 weekly injections. As of October 2018 [facility], and he then began hemodialysis. At that point his erythropoietin stimulating agent was changed to Mircera. He then became progressively more anemic. As of 12/02/2018 his hemoglobin had stabilized at 7.9 g. He then restarted Procrit on 12/17/2018. During this time, he also had continued his monthly daratumumab infusions. His anemia did improve after restarting the Procrit. During follow-up his clinical status had otherwise remained stable. His protein electrophoresis had continued to show a very small M protein spike. There had been no significant change in his serum free light chains. 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 He continued on his monthly daratumumab infusions. As of 12/09/2019 he received cycle 38 of daratumumab. He had been tolerating the treatment well and his clinical status had been stable. However, he had been showing a very gradual increase in his M protein, in the kappa free light chain, and in the kappa/lambda ratio. I had discussed options for further treatment, and we ultimately decided to just try adding back carfilzomib. He began cycle 1 of daratumumab in combination with carfilzomib and dexamethasone on 03/01/2020. He tolerated the day 1 and day 2 carfilzomib infusions without acute toxicity. He was then able to continue with his day 7/8 and day 15/16 carfilzomib infusions on schedule, but he was not able to tolerate any dose escalation due to moderately severe thrombocytopenia. He then continued monthly cycles of treatment with the carfilzomib dosage unchanged. He began cycle 6 on 08/02/2020. His repeat protein electrophoresis studies on 08/22/2020 showed further increase in his M protein to 2.0 g/dL compared to 1.2 g/dL on 02/22/2020. During that same time period his serum free light chain assay showed an increase in the kappa/lambda ratio from 10.52 to 60.22. With continued evidence of disease progression, the daratumumab/carfilzomib regimen was stopped. I had seen him for a follow-up visit on 09/13/2020, at that time I reviewed other treatment options. As he was not having any obvious symptoms associated with the myeloma, he preferred to just continue observation/expectant management. His medical illnesses, in addition to myeloma and renal failure, include hypertension, hyperlipidemia, type II diabetes with peripheral neuropathy, and benign prostatic hypertrophy. He is a nonsmoker. INTERIM HISTORY: As of his follow-up visit in October 2020 his repeat protein electrophoresis showed significant increase in his M protein to 3.0 g/dL. At that point he was still stable clinically and he preferred not to attempt any of the available salvage therapies due to concerns over their potential side effects. He had subsequently developed increased pain in his lower back and pelvic area. A CT of the lumbar spine on 10/03/2020 had shown evidence of acute compression fracture involving the superior endplate of the L2 vertebral body but with minimal loss of vertebral body height. There was annual bulging at L4-5 with moderate central canal stenosis and slight anterolisthesis. Further evaluation with CT of the pelvis on 10/23/2020 showed diffuse demineralization with vague lytic lesions throughout the pelvis and sacrum, suspicious for myeloma or possibly metastatic disease. There is no apparent fracture in the right hip but there was suspected pathologic fracture involving the right inferior pubic ramus with a lytic lesion measuring 2.1 x 1.8 cm. He had radiation oncology consultation with Dr. Delgado on 11/01/2020, and he was given palliative radiation to the right hip area. His clinical course was complicated by significant [employer] toxicity associated with opiate pain medication. He was able to complete his radiation on 11/07/2020 to a total dose of 800 cGy administered in a single fraction. He had a follow-up visit with Dr. Goncalves on 11/27/2020. At that time his right hip pain had improved, but he was reporting severe pain in the low back area. In the absence of any known lytic disease in that area, he was referred to pain management. He subsequently was given a lumbar medial branch block and cervical/thoracic medial branch block on 12/12/2020. In the meantime, we were able to get him approved for a trial of salvage therapy with melphalan flufenamide. He began cycle 1 on 11/29/2020. It was administered at reduced dosage because of his low baseline platelet count. During subsequent follow-up there was a significant further decline in the platelet count, to as low as 16,000, but he did not have any bleeding complications. He had gradual recovery. He continued with cycle 2 on 01/24/2021. At that point he was still having significant back pain, and his repeat MRI of the lumbar spine at that time showed multiple new compression fractures involving L3, L4, and L5 vertebral bodies. There was also new anterior wedging at T11 and T12. His follow-up serum protein electrophoresis on 02/21/2021 showed a significant decline in the M protein, to 0.1 g/dL. There was a moderate central canal stenosis noted at L4-5. MRI of the pelvis on 02/01/2021 showed innumerable enhancing myelomatous lesions throughout the lower thoracic spine, pelvis, sacrum, and proximal femurs. MRI of the thoracic spine on 02/13/2021 again showed diffuse heterogeneous enhancing myelomatous lesions throughout the thoracic spine. There were some small disc protrusions. There was no high-grade central canal stenosis. With those findings he was given additional palliative radiation from T12-S1, completed 02/07/2021 to a total dose of 1500 cGy administered in 5 fractions. As of his follow-up visit on 03/21/2021 he continued to have mild to moderately severe neutropenia and thrombocytopenia, but he had shown some recovery, and he continued with cycle 3 of melphalan flufenamide. His repeat protein electrophoresis showed stable M protein of 0.2 g/dL. On 04/20/2021 he underwent bilateral L4/5 laminectomy with partial facetectomies. He was given a platelet pheresis prophylactically, and he tolerated the procedure well. He continued with cycle 4 of melphalan flufenamide on 05/02/2021. On 05/24/2021 he underwent repair of left inguinal hernia with mesh and repair of umbilical hernia. He had no complications with the procedure. He continued with cycle 5 of melphalan flufenamide on 06/20/2021. His protein electrophoresis at that point showed his M protein stable at 0.1 g/dL. At his follow-up visit on 08/23/2021 his treatment remained on hold due to persistent neutropenia and thrombocytopenia. His protein electrophoresis still showed stable M protein at 0.2 g/dL, but with the blood counts persistently low, he was given the option to have a trial of therapy with Velcade. He began cycle 1 on 09/17/2021, administered on days 1, 4, 8, and 11. He tolerated that well, and he continued with cycle 2 on 10/15/2021. Treatment was put on hold at day 8 of cycle 2 with his platelet count decreased to 20,000. He was able to continue with cycle 3 on 10/29/2021, but with the Velcade administered weekly. On 10/29/2021 he continued with cycle 3 with the Velcade administered weekly. The frequency was then further decreased to every 2 weeks, again because of thrombocytopenia. However, he did show evidence of response with his repeat free kappa light chain on 10/08/2021 decreased to 51.8 mg/L compared to a pretreatment level of 107.4 mg/L. He is seen for a follow-up visit. He has not been feeling too good generally, mainly due to persistent pain in the lower back area. He did receive an injection 1 month ago, and he will be going back to see his neurosurgeon again later this month. He has limited activity, but he is up and around. His ECOG score is 2. His appetite is still okay. He does not have fever or night sweats. He has not had sore mouth or throat. He does not complain of cough, and he has not been having shortness of breath or chest pain. He currently has no GI complaints. He has very little urine output. He has no other joint or bone pain. He does not complain of headache or dizziness. He does have some numbness/tingling in his feet. Medications: Acetaminophen 2 Tablet (of 325 mg) Oral four times a day PRN, Acyclovir 1 Tablet (of 400 mg) Oral daily, Albuterol Sulfate 1 Vial(s) (of (2.5 mg/3ml) 0.083%) Nebulization solution Inhalation t.i.d. PRN, Albuterol Sulfate 1 Inhalation (of 108 (90 base) mcg/act) Aerosol Powder, Breath Activated Inhalation q 4 hours, Allopurinol 1 Tablet (of 100 mg) Oral daily, ALPRAZolam 1 Tablet (of 0.25 mg) Oral at bedtime, amLODIPine Besylate 1 Tablet (of 2.5 mg) Oral daily, Bisacodyl EC 2 Tablet (of 5 mg) Tablet, enteric coated Oral daily PRN, Calcium Acetate 1 Capsule (of 667 mg) Oral t.i.d., Cipro 1 Tablet (of 500 mg) Oral b.i.d., Fluconazole 1 Tablet (of 100 mg) Oral daily, Furosemide 1 Tablet (of 80 mg) Oral daily, Gentamicin Sulfate 1 (0.1 %) Cream Topical at bedtime, HYDROmorphone HCl 1 (2 mg) Tablet Oral four times a day PRN, Levothyroxine Sodium 1 Tablet (of 50 mcg) Oral daily, Loperamide HCl 1 - 2 Tablet (of 2 mg) Oral PRN, Lovastatin 1 (40 mg) Tablet Oral at bedtime, Metoprolol Succinate ER (25 mg) Tablet SR 24 HR Oral daily, Mucinex 1 Tablet (of 600 mg) Tablet SR 12 HR Oral b.i.d. PRN, Prochlorperazine Maleate 1 Tablet (of 10 mg) Oral q 6 hours PRN, Renvela 3 (800 mg) Tablet Oral daily, Requip 1 Tablet (of 0.5 mg) Oral b.i.d., Tamsulosin HCl 1 Tablet (of 0.4 mg) Capsule Oral b.i.d., Vital-D Rx 1 Tablet (of 1 mg) Oral daily Allergies: Bactrim, Codeine Sulfate, Sulfa Antibiotics, TraMADol HCl, and Verapamil HCl. Vital Signs: Performed on Dec 10, 2021 13:13 Height - 69.00 in Weight - 147.4 lbs (HIGH) BSA - 1.81 sq.m BMI - 21.77 Temperature - 98.0 F (LOW) Pulse - 95 /min Respiration - 18 /min BP - 94/55 mm(hg) O2 Sat - 99 % Pain - 3 Fatigue - 6 Physical Examination: Constitutional - He appears generally weak, Eyes - Sclerae nonicteric. Conjunctivae clear, ENMT - No lesions noted in the oral cavity, Hematologic/Lymphatic - No cervical, clavicular, or axillary adenopathy, Respiratory - Lungs sound clear with good air movement bilaterally, Cardiovascular - Heart rhythm is regular with some premature beats. There is a II/ systolic murmur. There is no gallop or rub noted, Abdomen - Soft. Liver and spleen are not enlarged. There is no abdominal mass or ascites noted and there is no inguinal adenopathy, Extremities - Mild lower extremity edema. He has extensive purpura, Neurologic - No focal neurologic deficits noted. Lab/Imaging: Test performed on Dec 10, 2021 12:20 Sodium 140 mmol/L Potassium 4.4 mmol/L Chloride 96 mmol/L CO2 30 mmol/L Anion Gap 18.4 BUN 31 mg/dL Creatinine 3.5 mg/dL Cr Clearance (Est) 16.9700 mL/min Glucose 106 mg/dL Osmolality - Calculated 297 mOsm/kg Calcium 9.1 mg/dL Protein, Total 6.4 g/dL Albumin 4.5 g/dL Globulin 1.9 g/dL Bilirubin, Total 0.7 mg/dL ALT (SGPT) 47 U/L AST (SGOT) 27 U/L Alkaline Phosphatase 98 IU/L WBC 3.6 10 3/uL RBC 2.80 10 6/uL HGB 10.7 g/dL HCT 32.1 % MCV 114.6 fl MCH 38.2 pg MCHC 33.3 g/dL RDW 16.3 % Platelet Count 41 10 3/cmm MPV 9.9 fL Neutrophils 2.69 10 3/uL Lymphocytes 0.4 10 3/uL Monocytes 0.4 10 3/uL Eosinophils 0.0 10 3/uL Basophils 0.0 10 3/uL Neutrophil % 75.3 % Lymphocyte % 11.8 % Monocyte % 10.9 % Eosinophil % 1.1 % Basophils % 0.3 % NRBC % 0 % IgA 642 mg/dL Problem List: 1. IgA kappa myeloma, initially diagnosed in September 2011. 2. During follow-up he had progression to end-stage renal disease. He initially had started daily home peritoneal dialysis, but with subsequent transition to hemodialysis. 3. Anemia associated with end-stage renal disease. 4. Hypertension. 5. Hyperlipidemia. 6. Type II diabetes with peripheral neuropathy. 7. Benign prostatic hypertrophy. 8. Hypothyroidism. Problems Addressed with this Encounter and Plan: 1. Patient with IgA kappa myeloma, initially diagnosed in September 2011. His myeloma therapy included: 1. Velcade/dexamethasone for 3 cycles, completed December 2011. 2. High-dose melphalan/stem cell transplant in January 2012, complicated by sepsis and acute renal failure requiring hemodialysis. 3. Carfilzomib/dexamethasone for 10 cycles, completed May 2015. 4. Carfilzomib/Revlimid/dexamethasone beginning in January 2016. 5. Carfilzomib/pomalidomide/dexamethasone. 6. Daratumumab/Revlimid/dexamethasone beginning in October 2016. 7. Daratumumab monotherapy until January 2020. 8. Carfilzomib/daratumumab/dexamethasone from 03/01/2020 through 08/31/2020. He had been showing gradual disease progression since September 2019, but has a October 2020 there was a more significant increase in his M protein level, to 3.0 g/dL. He was initially not overtly symptomatic, but he subsequently developed symptomatic bone involvement in the pelvis. He had associated pathologic fracture. He was given palliative radiation to the right hip area, completed on 11/07/2020 to a total dose of 800 cGy administered in a single fraction. In the meantime, we were able to get approval for a trial of salvage therapy with melphalan flufenamide. He began cycle 1 on 11/29/2020. It was administered at a reduced dosage due to baseline thrombocytopenia. During followup his platelet count nadired at 16,000. He had no bleeding. His dory granulocyte count was 600. He had gradual recovery. He continued with cycle 2 on 01/24/2021. The treatment was again complicated by severe neutropenia and thrombocytopenia, requiring growth factor support with Neupogen and platelet pheresis. During subsequent follow-up he did show some recovery of his blood counts. He was able to continue with cycle 3 of melphalan flufenamide on 03/21/2021, with cycle 4 on 05/02/2021 and with cycle 5 on 06/20/2021. During follow-up his protein electrophoresis studies did significant improvement, indicative of response, but due to persistent pancytopenia the melphalan flufenamide remianed on hold. In September 2021 he was given the option to have a trial of therapy with Velcade. He began cycle 1 on 09/17/2021, administered on days 1, 4, 8, and 11. He tolerated that well. He began cycle 2 on 10/15/2021. His protein electrophoresis at that point showed stable M protein at 0.2 g/dL. However, at day 8 of cycle 2 his treatment was put on hold due to a drop in his platelet count to 20,000. He then began cycle 3 on 10/29/2021 with the Velcade administered weekly. The frequency was then further reduced to every 2 weeks, again due to thrombocytopenia. At this point he appears to be tolerating it adequately at that dose/schedule. He has had evidence of response with a significant decrease in his free kappa light chain. In the absence of any evidence of disease progression he will continue treatment with Velcade at 1.4 mg/m??? by subcutaneous injection every 2 weeks. He will be scheduled for a follow-up visit in 4 weeks. 2. He has significant pain in his lower back. Management has been problematic due to very poor tolerance for opiate pain medication. His previous CT of the lumbar spine did show no obvious lytic lesions, but there were vertebral compression fractures. He ultimately did receive palliative radiation to the lumbar spine, completed on 02/07/2021. He underwent bilateral L4/5 laminectomy on 04/20/2021. During subsequent follow-up he has had persistent lower back pain which has been significant enough to limit his activity. He continues follow-up with his neurosurgeon in [place] for management of the back pain. Signed By: Dustin Pinto M.D. <<Signature on File>>
[2021-12-11 06:36] LABS: PROTEIN, TOTAL 6.4 g/dL (6.1-8.1)
[2021-12-11 12:36] LABS: KAPPA LIGHT CHAIN, FREE, SERUM 99.7 mg/L (3.3-19.4); KAPPA/LAMBDA LIGHT CHAINS FREE 4.79 (0.26-1.65); LAMBDA LIGHT CHAIN, FREE, SERU 20.8 mg/L (5.7-26.3)
[2021-12-11 15:29] LABS: ABNORMAL PROTEIN BAND 1 0.3 g/dL (NONE DETECTED); ABNORMAL PROTEIN BAND 2 0.3 g/dL (NONE DETECTED); ALBUMIN 4.1 g/dL (3.8-4.8); ALPHA 1 GLOBULIN 0.3 g/dL (0.2-0.3); ALPHA 2 GLOBULIN 0.7 g/dL (0.5-0.9); BETA 1 GLOBULIN 0.3 g/dL (0.4-0.6); BETA 2 GLOBULIN 0.2 g/dL (0.2-0.5); GAMMA GLOBULIN 0.9 g/dL (0.8-1.7)
== END 2021-12-10 11:41 | disposition home or self-care (01) ==
PROVIDERS: PCP Family Medicine; Visit Provider Internal Medicine Medical Oncology
DX: Z51.11 Encounter for antineoplastic chemotherapy (principal); C90.02 Multiple myeloma in relapse; D63.1 Anemia in chronic kidney disease; N18.6 End stage renal disease; I10 Essential (primary) hypertension; E78.5 Hyperlipidemia, unspecified; E11.9 Type 2 diabetes mellitus without complications; G62.9 Polyneuropathy, unspecified; E03.9 Hypothyroidism, unspecified; Z79.899 Other long term (current) drug therapy
CPT/HCPCS: 36591; 80053; 82784; 83883; 84155; 84165; 85025; 96401; 99215; J8540; J9041; Q0162

== ENCOUNTER 2021-12-17 12:52 | Outpatient (CLI) | payer MEDICARE, OTHER, SELFPAY ==
[2021-12-17 13:37] LABS: Basophils % 0.3 %; Eosinophils % 0.8 %; Hematocrit 28.1 % (42.0-52.0); Hemoglobin 9.5 g/dL (11.7-16.6); Lymphocytes # 0.4 10^3/uL (0.8-4.8); Lymphocytes % 10.4 %; Mean Corpuscular HGB Conc 33.8 g/dL (30.0-36.0); Mean Corpuscular Hemoglobin 37.8 pg (28.0-34.0); Monocytes # 0.4 10^3/uL (0.2-0.9); Monocytes % 10.2 %; Neutrophils # 3.07 10^3/uL (1.8-7.7); Nucleated Red Blood Cells % 0 %; Platelet Count 33 10^3/cmm (130-400); Red Blood Count 2.51 10^6/uL (4.1-5.3); Red Cell Distribution Width 15.2 % (12.1-15.1); White Blood Count 3.9 10^3/uL (4.0-10.0)
== END 2021-12-17 12:53 | disposition home or self-care (01) ==
LOC: ONCMED 12:52
PROVIDERS: PCP Family Medicine; Visit Provider Internal Medicine Medical Oncology
DX: C90.00 Multiple myeloma not having achieved remission (principal)
CPT/HCPCS: 36591; 85025

== ENCOUNTER 2021-12-24 12:48 | Outpatient (CLI) | payer MEDICARE, OTHER, SELFPAY ==
[2021-12-24 13:28] LABS: Basophils % 0.2 %; Eosinophils % 0.7 %; Hematocrit 25.7 % (42.0-52.0); Hemoglobin 8.7 g/dL (11.7-16.6); Lymphocytes # 0.4 10^3/uL (0.8-4.8); Lymphocytes % 9.6 %; Mean Corpuscular HGB Conc 33.9 g/dL (30.0-36.0); Mean Corpuscular Hemoglobin 37.8 pg (28.0-34.0); Mean Corpuscular Volume 111.7 fl (80-94); Mean Platelet Volume 10.5 fL (7.4-10.4); Monocytes # 0.6 10^3/uL (0.2-0.9); Monocytes % 13.1 %; Neutrophils # 3.22 10^3/uL (1.8-7.7); Neutrophils % 75.7 %; Nucleated Red Blood Cells % 0 %; Platelet Count 39 10^3/cmm (130-400); Red Cell Distribution Width 15.2 % (12.1-15.1); White Blood Count 4.3 10^3/uL (4.0-10.0)
[2021-12-24] MEDS: ondansetron 4 MG Tablet 8 MG PO (14:30)
[2021-12-24] MEDS: dexamethasone 4 mg Tablet 20 MG PO (14:45)
== END 2021-12-24 12:49 | disposition home or self-care (01) ==
LOC: ONCMED 12:49
PROVIDERS: PCP Family Medicine; Visit Provider Internal Medicine Medical Oncology
DX: Z51.11 Encounter for antineoplastic chemotherapy (principal); C90.02 Multiple myeloma in relapse; D47.2 Monoclonal gammopathy; N18.6 End stage renal disease; Z99.2 Dependence on renal dialysis; Z79.52 Long term (current) use of systemic steroids; Z79.899 Other long term (current) drug therapy
CPT/HCPCS: 36591; 85025; 96401; J8540; J9041; Q0162

== ENCOUNTER 2022-01-21 12:30 | Oncology outpatient (recurring) (ONCR) | payer MEDICARE, OTHER, SELFPAY ==
[2021-12-31 13:20] VITALS: BP 111/70; PULSE 89; RESP 16; TEMP 36.9; O2SAT 99
[2021-12-31 13:44] LABS: Basophils % 0.2 %; Eosinophils % 0.4 %; Hematocrit 24.8 % (42.0-52.0); Hemoglobin 8.4 g/dL (11.7-16.6); Lymphocytes # 0.4 10^3/uL (0.8-4.8); Mean Corpuscular HGB Conc 33.9 g/dL (30.0-36.0); Mean Corpuscular Volume 112.2 fl (80-94); Mean Platelet Volume 10.3 fL (7.4-10.4); Monocytes # 0.5 10^3/uL (0.2-0.9); Neutrophils # 4.16 10^3/uL (1.8-7.7); Neutrophils % 81.6 %; Nucleated Red Blood Cells % 0 %; Platelet Count 34 10^3/cmm (130-400); Red Blood Count 2.21 10^6/uL (4.1-5.3); Red Cell Distribution Width 15.6 % (12.1-15.1); White Blood Count 5.1 10^3/uL (4.0-10.0)
[2021-12-31 14:30] LABS: Alanine Aminotransferase 34 U/L (0-41); Albumin Level 3.8 g/dL (3.5-5.2); Alkaline Phosphatase 95 IU/L (40-130); Anion Gap 18.3 (5-19); Aspartate Amino Transferase 25 U/L (0-40); Blood Urea Nitrogen 24 mg/dL (8-23); Calcium 7.7 mg/dL (8.5-10.5); Carbon Dioxide 30 mmol/L (22-29); Chloride 95 mmol/L (98-107); Globulin 2.3 g/dL (1.3-4.6); Glucose 125 mg/dL (65-115); Osmolality Calculated 296 mOsm/kg (285-295); Potassium 3.3 mmol/L (3.5-5.1); Sodium 140 mmol/L (136-145); Total Bilirubin 0.6 mg/dL (0.15-1.2); Total Protein 6.1 g/dL (6.6-8.7)
[2022-01-07 12:05] LABS: Basophils % 0.6 %; Eosinophils % 1.3 %; Hematocrit 23.7 % (42.0-52.0); Hemoglobin 7.8 g/dL (11.7-16.6); Lymphocytes # 0.4 10^3/uL (0.8-4.8); Lymphocytes % 12.2 %; Mean Corpuscular HGB Conc 32.9 g/dL (30.0-36.0); Mean Corpuscular Hemoglobin 37.3 pg (28.0-34.0); Mean Corpuscular Volume 113.4 fl (80-94); Mean Platelet Volume 12.6 fL (7.4-10.4); Monocytes # 0.3 10^3/uL (0.2-0.9); Monocytes % 9.7 %; Neutrophils # 2.42 10^3/uL (1.8-7.7); Neutrophils % 75.9 %; Nucleated Red Blood Cells % 0 %; Platelet Count 45 10^3/cmm (130-400); Red Blood Count 2.09 10^6/uL (4.1-5.3); Red Cell Distribution Width 17.1 % (12.1-15.1); White Blood Count 3.2 10^3/uL (4.0-10.0)
[2022-01-07 12:26] LABS: Alanine Aminotransferase 17 U/L (0-41); Albumin Level 3.6 g/dL (3.5-5.2); Alkaline Phosphatase 91 IU/L (40-130); Anion Gap 15.1 (5-19); Aspartate Amino Transferase 20 U/L (0-40); Blood Urea Nitrogen 18 mg/dL (8-23); Calcium 8.2 mg/dL (8.5-10.5); Carbon Dioxide 29 mmol/L (22-29); Chloride 96 mmol/L (98-107); Globulin 3.3 g/dL (1.3-4.6); Glucose 84 mg/dL (65-115); Osmolality Calculated 285 mOsm/kg (285-295); Potassium 3.1 mmol/L (3.5-5.1); Sodium 137 mmol/L (136-145); Total Bilirubin 0.8 mg/dL (0.15-1.2); Total Protein 6.9 g/dL (6.6-8.7)
[2022-01-07 12:45] LABS: Immunoglobulin IGG 382 mg/dL (700-1600); Immunoglobulin IGM 25 mg/dL (40-230)
[2022-01-07 13:11] LABS: Immunoglobulin IGA 1193 mg/dL (70-400)
[2022-01-08 07:28] LABS: PROTEIN, TOTAL 6.5 g/dL (6.1-8.1)
[2022-01-08 09:05] VITALS: BP 106/56; PULSE 60; RESP 18; TEMP 37.3; O2SAT 99
[2022-01-08] MEDS: sodium chloride 0.9% 250 ML 75 ML IV (09:05)
[2022-01-08] MEDS: acetaminophen 325 mg Tablet 650 MG PO (09:05)
[2022-01-08] MEDS: diphenhydrAMINE 25 mg Capsule PO (09:05)
[2022-01-08 09:10] VITALS: TEMP 37.4
[2022-01-08 09:25] VITALS: BP 138/74; PULSE 57; RESP 18; TEMP 37.2; O2SAT 99
[2022-01-08 09:40] VITALS: BP 114/61; PULSE 60; RESP 18; TEMP 37.2; O2SAT 99
[2022-01-08 10:10] VITALS: BP 117/69; PULSE 60; RESP 18; TEMP 37.2; O2SAT 97
[2022-01-08] MEDS: FUROsemide 10 mg/mL SDV 2mL 20 MG IVP (11:05)
[2022-01-08 11:10] VITALS: BP 128/91; PULSE 58; RESP 18; TEMP 37.3; O2SAT 97
[2022-01-08 11:36] LABS: KAPPA LIGHT CHAIN, FREE, SERUM 321.6 mg/L (3.3-19.4); LAMBDA LIGHT CHAIN, FREE, SERU 21.3 mg/L (5.7-26.3)
[2022-01-08 15:09] LABS: ABNORMAL PROTEIN BAND 1 1.1 g/dL (NONE DETECTED); ALBUMIN 3.6 g/dL (3.8-4.8); ALPHA 1 GLOBULIN 0.4 g/dL (0.2-0.3); ALPHA 2 GLOBULIN 0.7 g/dL (0.5-0.9); BETA 1 GLOBULIN 0.3 g/dL (0.4-0.6); BETA 2 GLOBULIN 0.2 g/dL (0.2-0.5); GAMMA GLOBULIN 1.4 g/dL (0.8-1.7)
[2022-01-10 07:08] LABS: CARDIOLIPIN AB (IGA) <2.0 APL-U/mL; CARDIOLIPIN AB (IGG) <2.0 GPL-U/mL; CARDIOLIPIN AB (IGM) <2.0 MPL-U/mL
[2022-01-21 12:44] LABS: Basophils % 0.7 %; Eosinophils # 0.1 10^3/uL (0.0-0.8); Eosinophils % 2.2 %; Hematocrit 29.6 % (42.0-52.0); Hemoglobin 9.5 g/dL (11.7-16.6); Lymphocytes # 0.5 10^3/uL (0.8-4.8); Lymphocytes % 16.9 %; Mean Corpuscular HGB Conc 32.1 g/dL (30.0-36.0); Mean Corpuscular Hemoglobin 35.2 pg (28.0-34.0); Mean Corpuscular Volume 109.6 fl (80-94); Monocytes # 0.3 10^3/uL (0.2-0.9); Monocytes % 11.2 %; Neutrophils # 1.91 10^3/uL (1.8-7.7); Neutrophils % 68.6 %; Nucleated Red Blood Cells % 0 %; Platelet Count 39 10^3/cmm (130-400); Red Cell Distribution Width 19.1 % (12.1-15.1); White Blood Count 2.8 10^3/uL (4.0-10.0)
[2022-01-21 13:19] LABS: Alanine Aminotransferase 26 U/L (0-41); Albumin Level 3.6 g/dL (3.5-5.2); Alkaline Phosphatase 126 IU/L (40-130); Anion Gap 14.6 (5-19); Aspartate Amino Transferase 34 U/L (0-40); Blood Urea Nitrogen 19 mg/dL (8-23); Calcium 8.4 mg/dL (8.5-10.5); Carbon Dioxide 31 mmol/L (22-29); Chloride 95 mmol/L (98-107); Globulin 4.1 g/dL (1.3-4.6); Glucose 143 mg/dL (65-115); Osmolality Calculated 289 mOsm/kg (285-295); Potassium 3.6 mmol/L (3.5-5.1); Sodium 137 mmol/L (136-145); Total Bilirubin 0.8 mg/dL (0.15-1.2); Total Protein 7.7 g/dL (6.6-8.7)
== END 2022-01-29 23:59 | disposition home or self-care (01) ==
PROVIDERS: Nurse Practitioner Family; PCP Family Medicine; Visit Provider Internal Medicine Medical Oncology
DX: C90.02 Multiple myeloma in relapse (principal); D47.2 Monoclonal gammopathy; C79.51 Secondary malignant neoplasm of bone; N18.6 End stage renal disease; Z99.2 Dependence on renal dialysis; E11.22 Type 2 diabetes mellitus with diabetic chronic kidney disease; I12.0 Hypertensive chronic kidney disease with stage 5 chronic kidney disease or end stage renal disease; M47.816 Spondylosis without myelopathy or radiculopathy, lumbar region; M54.50 Low back pain, unspecified; Z79.891 Long term (current) use of opiate analgesic; Z79.52 Long term (current) use of systemic steroids; Z79.899 Other long term (current) drug therapy
CPT/HCPCS: 36430; 36591; 80053; 82784; 83883; 84155; 84165; 85025; 86147; 86850; 86900; 86920; 99215; 99999; J1940; J7050; P9040

== ENCOUNTER 2022-01-26 12:02 | Emergency (ER) | payer MEDICARE, OTHER, SELFPAY ==
[2022-01-26 12:10] VITALS: BP 120/65; PULSE 79; RESP 14; TEMP 37.1; O2SAT 95; BMI 21.8
--- NOTE | 2022-01-26 13:20 | XRR_ITS ---
PROCEDURE INFORMATION: Exam: XR Chest Exam date and time: 01/26/2022 1:28 PM Age: 76 years old Clinical indication: Dyspnea and other: Weakness TECHNIQUE: Imaging protocol: XR of the chest. Views: 1 view. COMPARISON: CR Chest 1 [place] [id number] 06/25/2018 6:04 PM FINDINGS: Tubes, catheters and devices: A chest port terminates at the cavoatrial junction. Lungs: Unremarkable. No consolidation. Pleural spaces: Unremarkable. No pleural effusion. No pneumothorax. Heart/Mediastinum: Unremarkable. No cardiomegaly. Bones/joints: Unremarkable. XR/XR chest 1V portable [id number] IMPRESSION: No acute findings.
--- NOTE | 2022-01-26 13:20 | ECG_ITS ---
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 Measurements Intervals [place] Rate: 72 P: 56 AR: 192 QRS: -25 QRSD: 92 T: 40 QT: 385 QTc: 422 Interpretive Statements SINUS RHYTHM BORDERLINE LEFT AXIS DEVIATION [QRS AXIS < -20] LOW QRS VOLTAGE IN PRECORDIAL LEADS [QRS DEFLECTION < 1.0 mV IN CHEST LEADS] INCOMPLETE RIGHT BUNDLE BRANCH BLOCK [90+ ms QRS DURATION, TERMINAL R IN V1/V2, 40+ ms S IN I/aVL/V4/V5/V6] Compared to ECG 04/12/2021 11:17:04 Incomplete right bundle-branch block now present Electronically Signed On 01-27-2022 20:31:26 CDT by Frederick Saleh M.D. [id number]
--- NOTE | 2022-01-26 13:21 | W.ED.WEAKNES ---
HPI - Weakness General: Chief complaint: Weakness Stated complaint: lethargy Time Seen by Provider: 01/26/22 13:07 History of Present Illness: 76-year-old male presents with generalized weakness. Patient reports that has been going on for at least 7-8 months but over the last week or 2 has been worse. Patient has a history of multiple myeloma. Patient was receiving chemotherapy up to 2 weeks ago but had to receive a blood transfusion due to his platelets and hemoglobin being too low. At that time patient received 2 units of red blood cells. Patient reports that now he just feels weak and is having difficulty even kind to get around at his house. He reports that he uses a walker. Patient also has a history of chronic kidney disease and is currently on Friday dialysis. He had his last episode dialysis yesterday. Patient denies any fever, chills, cough, shortness of breath or other significant acute changes Associated symptoms: Denies chest pain, chills, confusion, dysuria, fever(s), headache(s), nausea or vomiting Review of Systems Const: Reports: fatigue and malaise; Denies: fever(s) or chills Card: Denies: chest pain or palpitations Resp: Denies: dyspnea, productive cough or non-productive cough GI: Denies: abdominal pain, nausea, vomiting or diarrhea : Denies: flank pain, dysuria or urinary frequency Musc: Denies: extremity pain or extremity swelling Skin/Breast: Denies: rash or pruritus Neuro: Reports: other (Please see HPI); Denies: headache(s), confusion or Slurred speech present PFSH ED PFSH: Medical History (Updated 01/26/22 @ 18:08 by Valdez Hare DO) Anemia Chronic low back pain End stage renal disease on dialysis Facet arthritis, degenerative, lumbar spine Hyperlipidemia, unspecified Hypertension Multiple myeloma in relapse Thrombocytopenia Type 2 diabetes mellitus without complications Surgical History (Updated 01/25/22 @ 15:49 by Dustin Pinto MD) History of cholecystectomy History of lumbar laminectomy (04/20/21) bilateral L4/5 laminectomy Hx of cataract surgery Hx of inguinal hernia repair Port-A-Cath in place Family History Mother Cancer BREAST CANCER Grandmother Cancer BREAST CANCER Father Chronic kidney disease (CKD) Other Diabetes Hypertension Denies family history of CAD (coronary artery disease) Clotting disorder Dementia Hyperlipidemia Psychiatric illness Suicide Anesthesia complication Bleeding disorder Lung disease Stroke Social History Smoking and tobacco status: never smoked Second hand smoke exposure: No Alcohol intake: never Caregiver/support person: Yes (ASSISTED LIVING ) Household members: caregiver Housing: Assisted Living Facility History of recent travel: No Physical Exam Const: COMMON NORMALS: patient oriented x3 GENERAL APPEARANCE: ill appearing (Chronic) and frail appearing HENMT: COMMON NORMALS: normocephalic and atraumatic HEAD & SCALP: normocephalic and atraumatic Resp: COMMON NORMALS: normal respiratory effort and No retractions Cardio: COMMON NORMALS: regular rate and regular rhythm RATE: regular rate RHYTHM: regular rhythm GI: COMMON NORMALS: Soft to palpation and non-tender INSPECTION: Yes normal to inspection PALPATION: Yes Soft to palpation Extremity: COMMON NORMALS: capillary refill normal Neuro: COMMON NORMALS: patient oriented x3, CN's II-XII intact bilaterally, no focal motor deficits and no sensory deficits noted Skin: GENERAL SKIN EXAM: pallor Course Vital Signs: Vital signs: Vital Signs Temperature 98.8 F 01/26/22 12:10 Pulse Rate 79 01/26/22 12:10 Respiratory Rate 14 01/26/22 12:10 Blood Pressure 120/65 01/26/22 12:10 Pulse Oximetry 95 01/26/22 12:10 MDM - Weakness Medical Decision Making Patient with a increase from his baseline creatinine and BUN. Patient's likely was mildly dehydrated. Patient felt extremely better following a 500 mL bolus. Patient has elevated troponin is likely his baseline. Patient is ready to be discharged home. He should follow-up with a primary care provider as needed. I did recommend they discuss his fluid restriction and consider not quite so tight on his restrictions. Patient was stable upon discharge Lab Data : 01/26/22 13:55 01/26/22 13:55 Radiology Impressions Chest X-Ray 01/26/22 13:20 IMPRESSION: No acute findings. Laboratory Results WBC 2.6 10^3/uL (4.0-10.0) L 01/26/22 13:55 RBC 2.61 10^6/uL (4.1-5.3) L 01/26/22 13:55 Hgb 9.0 g/dL (11.7-16.6) L 01/26/22 13:55 Hct 28.8 % (42.0-52.0) L 01/26/22 13:55 MCV 110.3 fl (80-94) H 01/26/22 13:55 MCH 34.5 pg (28.0-34.0) H 01/26/22 13:55 MCHC 31.3 g/dL (30.0-36.0) 01/26/22 13:55 RDW 19.1 % (12.1-15.1) H 01/26/22 13:55 Plt Count 32 10^3/cmm (130-400) L 01/26/22 13:55 MPV 10.1 fL (7.4-10.4) 01/26/22 13:55 Neut % (Auto) 62.7 % 01/26/22 13:55 Lymph % (Auto) 19.2 % 01/26/22 13:55 [place] % (Auto) 15.0 % 01/26/22 13:55 Eos % (Auto) 2.3 % 01/26/22 13:55 Baso % (Auto) 0.4 % 01/26/22 13:55 Neut # (Auto) 1.63 10^3/uL (1.8-7.7) L 01/26/22 13:55 Lymph # (Auto) 0.5 10^3/uL (0.8-4.8) L 01/26/22 13:55 [place] # (Auto) 0.4 10^3/uL (0.2-0.9) 01/26/22 13:55 Eos # (Auto) 0.1 10^3/uL (0.0-0.8) 01/26/22 13:55 Baso # (Auto) 0.0 10^3/uL (0.0-0.1) 01/26/22 13:55 Nucleated RBC % (auto) 0 % 01/26/22 13:55 Nucleated RBCs # 0.0 /100WBC 01/26/22 13:55 Sodium 140 mmol/L (136-145) 01/26/22 13:55 Potassium 3.6 mmol/L (3.5-5.1) 01/26/22 13:55 Chloride 96 mmol/L (98-107) L 01/26/22 13:55 Carbon Dioxide 29 mmol/L (22-29) 01/26/22 13:55 Anion Gap 18.6 (5-19) 01/26/22 13:55 BUN 33 mg/dL (8-23) H 01/26/22 13:55 Creatinine 4.6 mg/dL (0.7-1.2) H 01/26/22 13:55 GFR Calculation Not Reportable 01/26/22 13:55 Glucose 94 mg/dL (65-115) 01/26/22 13:55 Calculated Osmolality 297 mOsm/kg (285-295) H 01/26/22 13:55 Calcium 8.9 mg/dL (8.5-10.5) 01/26/22 13:55 Magnesium 2.2 mg/dL (1.7-2.3) 01/26/22 13:55 Total Bilirubin 0.8 mg/dL (0.15-1.2) 01/26/22 13:55 AST 32 U/L (0-40) 01/26/22 13:55 ALT 24 U/L (0-41) 01/26/22 13:55 Alkaline Phosphatase 144 IU/L (40-130) H 01/26/22 13:55 Troponin T Gen 5 ng/L 236 ng/L (0-15) H* 01/26/22 17:13 Total Protein 7.8 g/dL (6.6-8.7) 01/26/22 13:55 Albumin 3.4 g/dL (3.5-5.2) L 01/26/22 13:55 Globulin 4.4 g/dL (1.3-4.6) 01/26/22 13:55 Blood Type O Positive 01/26/22 13:55 Rho(D) Type Positive 01/26/22 13:55 Antibody Screen Negative 01/26/22 13:55 EKG Data EKG 1: EKG interpretation date: 01/26/22 EKG interpretation time: 13:42 Interpretation: hr 72 NSR, HI inv 192 no acute changes Computer generated interpretation: Normal sinus, borderline left axis, low voltage QRS, incomplete right bundle branch, borderline ECG Discharge Plan Discharge Patient Disposition: Home Clinical Impression: End stage renal disease on dialysis, Dehydration Condition: Stable Prescriptions: No Action alprazolam 0.25 mg tablet 0.25 mg PO BEDTIME 0RF gentamicin 0.1 % cream 1 applic topical .HS 0RF levothyroxine 50 mcg capsule 50 mcg PO DAILY 0RF lovastatin 40 mg tablet 40 mg PO DAILY 0RF ropinirole 0.5 mg tablet 0.5 mg PO BID 0RF Vital-D Rx 1,750-60-1-12.5 mnuj-nh-bz-mg tablet 1 tab PO DAILY 0RF acetaminophen 325 mg capsule 325 mg PO QID PRN (Reason: Pain) 0RF bisacodyl 10 mg suppository 10 mg HI DAILY PRN (Reason: Constipation) 0RF loperamide 2 mg capsule 2 - 4 mg PO Q6H PRN (Reason: loose stools) 0RF guaifenesin [Mucinex] 600 mg tablet extended release 12hr 600 mg PO BID 0RF prochlorperazine maleate 10 mg tablet 10 mg PO Q6H PRN (Reason: Nausea And Vomiting) 0RF fluconazole 100 mg tablet 100 mg PO DAILY 0RF Culturelle 10 billion cell capsule 1 cap PO DAILY 0RF dexamethasone 4 mg tablet 40 mg PO Q7D 0RF tamsulosin 0.4 mg capsule 0.4 mg PO BID 0RF metoprolol succinate 25 mg tablet extended release 24 hr 25 mg PO DAILY 0RF furosemide [Lasix] 80 mg tablet 160 mg PO DAILY 0RF albuterol sulfate 90 mcg/actuation HFA aerosol inhaler 2 puff inhalation Q4H PRN (Reason: shortness of breath or wheezing) 0RF hydrocodone-acetaminophen 5-325 mg tablet 1 tab PO Q4H PRN (Reason: pain) 0RF hydromorphone [Dilaudid] 4 mg tablet 4 mg PO Q6H PRN (Reason: pain) 0RF clindamycin phosphate 1 % gel 1 applic topical BID PRN (Reason: Rash) 0RF Afrin (oxymetazoline) 0.05 % mist 1 spray intranasal DAILY PRN (Reason: Nasal Congestion) 0RF valacyclovir 500 mg tablet 500 mg PO .COMPLEX 0RF Rx Instructions: 500 mg PO 1 tablet PO every Friday, Friday and Friday.; allopurinol 100 mg Tablet 100 mg PO DAILY 0RF bisacodyl 5 mg Tablet,Delayed Release (Dr/Ec) 10 mg PO DAILY PRN (Reason: Constipation) 0RF albuterol sulfate 2.5 mg /3 mL (0.083 %) Solution For Nebulization 2.5 mg INHALATION TID PRN (Reason: Shortness Of Breath) 0RF Discharge Orders: Discharge ED (Routine); Ordered 01/26/22 Ordered By: Valdez Hare Referrals: Stewart Baxter MD [Primary Care Provider] - Discharge Diet: Usual diet Discharge Activity: Increase activity as tolerated Patient Instructions: Dehydration (DC), Dialysis Diet (DC), End Stage Kidney Disease (ED), Opioid Safety Activity Restrictions/Additional Instructions: Please discuss your fluid restrictions with your turbine room 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
[2022-01-26 14:15] LABS: Basophils % 0.4 %; Eosinophils # 0.1 10^3/uL (0.0-0.8); Eosinophils % 2.3 %; Hematocrit 28.8 % (42.0-52.0); Lymphocytes # 0.5 10^3/uL (0.8-4.8); Lymphocytes % 19.2 %; Mean Corpuscular HGB Conc 31.3 g/dL (30.0-36.0); Mean Corpuscular Hemoglobin 34.5 pg (28.0-34.0); Mean Corpuscular Volume 110.3 fl (80-94); Mean Platelet Volume 10.1 fL (7.4-10.4); Monocytes # 0.4 10^3/uL (0.2-0.9); Neutrophils # 1.63 10^3/uL (1.8-7.7); Neutrophils % 62.7 %; Nucleated Red Blood Cells % 0 %; Platelet Count 32 10^3/cmm (130-400); Red Blood Count 2.61 10^6/uL (4.1-5.3); Red Cell Distribution Width 19.1 % (12.1-15.1); White Blood Count 2.6 10^3/uL (4.0-10.0)
[2022-01-26 14:34] LABS: Alanine Aminotransferase 24 U/L (0-41); Albumin Level 3.4 g/dL (3.5-5.2); Alkaline Phosphatase 144 IU/L (40-130); Anion Gap 18.6 (5-19); Aspartate Amino Transferase 32 U/L (0-40); Blood Urea Nitrogen 33 mg/dL (8-23); Calcium 8.9 mg/dL (8.5-10.5); Carbon Dioxide 29 mmol/L (22-29); Chloride 96 mmol/L (98-107); Globulin 4.4 g/dL (1.3-4.6); Glucose 94 mg/dL (65-115); Magnesium 2.2 mg/dL (1.7-2.3); Osmolality Calculated 297 mOsm/kg (285-295); Potassium 3.6 mmol/L (3.5-5.1); Sodium 140 mmol/L (136-145); Total Bilirubin 0.8 mg/dL (0.15-1.2); Total Protein 7.8 g/dL (6.6-8.7)
[2022-01-26 14:54] LABS: Troponin T (5th) Once 254 ng/L (0-15)
[2022-01-26] MEDS: lactated ringers 500 ML 999 ML IV (15:19)
[2022-01-26 17:51] LABS: Troponin T (5th) Once 236 ng/L (0-15)
[2022-01-26 19:39] VITALS: RESP 17
== END 2022-01-26 19:42 | disposition home or self-care (01) ==
PROVIDERS: Emergency Provider Student in an Organized Health Care Education/Training Program; PCP Family Medicine
DX: E11.22 Type 2 diabetes mellitus with diabetic chronic kidney disease (principal); I12.0 Hypertensive chronic kidney disease with stage 5 chronic kidney disease or end stage renal disease; N18.6 End stage renal disease; Z99.2 Dependence on renal dialysis; E86.0 Dehydration; C90.00 Multiple myeloma not having achieved remission; Z92.21 Personal history of antineoplastic chemotherapy
CPT/HCPCS: 71045; 80053; 83735; 84484; 85025; 86850; 86900; 93005; 99284

== ENCOUNTER 2022-02-05 09:21 | Oncology outpatient (recurring) (ONCR) | payer MEDICARE, OTHER, SELFPAY ==
[2022-02-05 09:29] VITALS: BP 119/50; PULSE 71; RESP 16; TEMP 37.1; O2SAT 95
[2022-02-05 09:50] LABS: Basophils % 0.9 %; Eosinophils # 0.1 10^3/uL (0.0-0.8); Eosinophils % 4.9 %; Hematocrit 25.3 % (42.0-52.0); Hemoglobin 8.2 g/dL (11.7-16.6); Lymphocytes # 0.5 10^3/uL (0.8-4.8); Lymphocytes % 23.9 %; Mean Corpuscular HGB Conc 32.4 g/dL (30.0-36.0); Mean Corpuscular Hemoglobin 34.6 pg (28.0-34.0); Mean Corpuscular Volume 106.8 fl (80-94); Mean Platelet Volume 12.3 fL (7.4-10.4); Monocytes # 0.3 10^3/uL (0.2-0.9); Monocytes % 13.7 %; Neutrophils # 1.27 10^3/uL (1.8-7.7); Neutrophils % 56.2 %; Nucleated Red Blood Cells % 0 %; Platelet Count 32 10^3/cmm (130-400); Red Blood Count 2.37 10^6/uL (4.1-5.3); White Blood Count 2.3 10^3/uL (4.0-10.0)
[2022-02-05] MEDS: diphenhydrAMINE 25 mg Capsule PO (11:27)
[2022-02-05] MEDS: acetaminophen 325 mg Tablet 650 MG PO (11:27)
[2022-02-05] MEDS: sodium chloride 0.9% 250 ML 75 ML IV (11:28)
[2022-02-05 13:25] VITALS: BP 112/56; PULSE 78; RESP 18; TEMP 37.1; O2SAT 98
[2022-02-05 13:41] VITALS: BP 114/56; PULSE 77; RESP 18; TEMP 36.6
[2022-02-05 14:10] VITALS: BP 112/58; PULSE 77; RESP 18; TEMP 36.6
[2022-02-05 15:00] VITALS: BP 114/56; BP 124/67; PULSE 67; PULSE 76; RESP 18; TEMP 36.1; TEMP 36.6; O2SAT 97; O2SAT 99
[2022-02-05 15:50] VITALS: BP 122/68; PULSE 67; RESP 18; TEMP 36.6; O2SAT 99
== END 2022-02-20 23:59 | disposition home or self-care (01) ==
PROVIDERS: PCP Family Medicine; Visit Provider Internal Medicine Medical Oncology
DX: C90.02 Multiple myeloma in relapse (principal); D47.2 Monoclonal gammopathy; N18.6 End stage renal disease; Z99.2 Dependence on renal dialysis; D63.1 Anemia in chronic kidney disease; I12.0 Hypertensive chronic kidney disease with stage 5 chronic kidney disease or end stage renal disease; E11.22 Type 2 diabetes mellitus with diabetic chronic kidney disease; D69.6 Thrombocytopenia, unspecified; Z79.4 Long term (current) use of insulin; Z79.899 Other long term (current) drug therapy
CPT/HCPCS: 36430; 85025; 86850; 86900; 86920; J7050; P9040